=== PATIENT | female | born 2000 | race Caucasian/White ===

== ENCOUNTER 2023-07-11 21:11 | Outpatient (REF) | payer OTHER, SELFPAY ==
[2023-07-18 21:07] LABS: Age Gdln ACOG Testing Note (.); HPV Aptima Positive (Negative); IGP, rfx Aptima HPV ASCU Note (.)
== END 2023-07-11 21:12 | disposition home or self-care (01) ==
LOC: LAB 21:11
PROVIDERS: PCP Student in an Organized Health Care Education/Training Program; Visit Provider Obstetrics & Gynecology
DX: R87.612 Low grade squamous intraepithelial lesion on cytologic smear of cervix (LGSIL) (principal)
CPT/HCPCS: G0145

== ENCOUNTER 2023-08-03 09:33 | Outpatient (OUT) | payer OTHER, SELFPAY ==
--- NOTE | 2023-08-03 09:36 | US_ITS ---
[address] [address] Patient Name: JUAN PAREDES MRN: [id number] date: 2000 Sex: F Assigned Patient Location: US Current Patient Location: US Accession/Order Number: [id number] Exam Date: 08/03/2023 09:36 Report Date: 08/03/2023 15:35 At the request of: SHAHANA ALFORD Procedure: US OB transvaginal EXAMINATION: US OB transvaginal HISTORY: MISSED MENSES COMPARISON: No relevant comparison available. FINDINGS: GESTATIONAL SAC: Present and normal appearing. YOLK SAC: Present and normal appearing. POLE: Present and normal appearing. CARDIAC: Present. UTERUS: Normal size and appearance. OVARIES: Right: Not seen. Left: Normal. CERVIX: 4.6 cm in length and closed. CUL-DE-SAC: Normal. OTHER: None. AGE BY LMP: 9 weeks 1 day AMAIRANI BY LMP: 03/06/2024 AGE BY US CRL: 8 weeks 5 days AMAIRANI BY US CRL: 03/09/2024 US/US OB transvaginal IMPRESSION: 1. Single live intrauterine . Electronically authenticated by: MELITA MARTINEZ Date: 08/03/2023 15:35
== END 2023-08-03 09:34 | disposition home or self-care (01) ==
LOC: US 09:34
PROVIDERS: PCP Student in an Organized Health Care Education/Training Program; Visit Provider Obstetrics & Gynecology
DX: Z34.91 Encounter for supervision of normal pregnancy, unspecified, first trimester (principal); N92.6 Irregular menstruation, unspecified; Z3A.08 8 weeks gestation of pregnancy
CPT/HCPCS: 76817

== ENCOUNTER 2023-08-09 10:50 | Outpatient (OUT) | payer OTHER, SELFPAY ==
[2023-08-09 11:28] LABS: Basophils Percent Auto 0.3 % (0.2-2.0); Eosinophils Absolute Auto 0.2 10^3/uL (0.0-0.7); Eosinophils Percent Auto 1.5 % (0.9-7.0); Hematocrit 41.2 % (36.0-48.0); Hemoglobin 14.4 g/dL (12.0-16.0); Immature Granulocytes Abs Auto 0.04 10^3/uL (0.00-0.03); Immature Granulocytes Pct Auto 0.4 % (0.0-0.5); Lymphocytes Absolute Auto 1.8 10^3/uL (1.2-3.8); Lymphocytes Percent Auto 17.3 % (20.5-60.0); Mean Corpuscular Hemoglobin 30.6 pg (26.7-34.0); Mean Corpuscular Volume 87.5 fL (81.0-99.0); Monocytes Absolute Auto 0.6 10^3/uL (0.3-0.8); Neutrophils Absolute Auto 7.7 10^3/uL (1.4-6.5); Neutrophils Percent Auto 74.5 % (43.0-75.0); Platelet Count 237 10^3/uL (150-450); Red Blood Count 4.71 10^6/uL (4.20-5.40); Red Cell Distribution Width 12.7 % (11.0-15.0); White Blood Count 10.3 10^3/uL (4.0-11.0)
[2023-08-09 11:45] LABS: BOX Test Sent Out Y
[2023-08-09 12:21] LABS: Estimated Average Glucose 100 mg/dL; Glycohemoglobin A1C 5.1 % (4.5-6.2)
[2023-08-09 12:36] LABS: Thyroid Stimulating Hormone 0.025 uIU/mL (0.358-3.740)
[2023-08-10 06:09] LABS: HBsAg Screen Negative (Negative); HCV Ab Non Reactive (Non Reactive); HIV Ab/p24 Ag Screen Non Reactive (Non Reactive); Rubella Antibodies, IgG 1.78 index (Immune >0.99)
[2023-08-10 12:09] LABS: Rapid Plasma Reagin, Quant Non Reactive titer (NonRea<1:1)
== END 2023-08-09 10:51 | disposition home or self-care (01) ==
PROVIDERS: PCP Student in an Organized Health Care Education/Training Program; Visit Provider Obstetrics & Gynecology
DX: Z36.0 Encounter for antenatal screening for chromosomal anomalies (principal); N92.6 Irregular menstruation, unspecified
CPT/HCPCS: 36415; 83036; 84443; 85025; 86592; 86762; 86803; 86850; 86900; 86901; 87086; 87340; 87389

== ENCOUNTER 2023-08-21 08:54 | Emergency (ER) | payer OTHER, SELFPAY ==
[2023-08-21 09:00] VITALS: BP 121/84; PULSE 116; RESP 18; TEMP 36.6; O2SAT 97; BMI 25.7
--- NOTE | 2023-08-21 09:16 | ED.NAVMDI1 ---
HPI - Nausea/Vomiting/Diarrhea General Chief complaint: Nausea/Vomiting/Diarrhea Stated complaint: NAUSEA/VOMITTING 12 WEEKS Time Seen by Provider: 08/21/23 09:08 Source: patient Mode of arrival: walk-in Limitations: no limitations History of Present Illness HPI Narrative: 23-year-old female who is twelve weeks presents for nausea and vomiting which this time started two days ago. She's had issues like this in the past and on previous had to have a Zofran pump. No vaginal bleeding or abdominal pain. No fever. Related Data Previous Rx's Medication Instructions Recorded ondansetron 4 mg disintegrating 4 mg PO Q6H PRN nausea and 08/21/23 tablet vomiting #20 tabs Allergies Allergy/AdvReac Type Severity Reaction Status Date / Time No Known Drug Allergies Allergy Verified 08/21/23 08:59 Review of Systems ROS Narrative A ten point review of systems is negative except as noted above. Exam Narrative Exam Narrative: Nurses note and vital signs reviewed and patient is not hypoxic. General: The patient appears well and in no apparent distress. Patient is resting comfortably on cart. Skin: Warm, dry, no pallor noted. There is no rash noted. Head: Normocephalic, atraumatic Eye: Normal conjunctiva, no drainage Ears, Nose, Mouth, and Throat: oral mucosa is moist. Nares patent. Cardiovascular: Regular Rate and Rhythm Respiratory: Patient is in no distress, no accessory muscle use, lungs are clear to auscultation, no wheezing, rales or rhonchi Back: non-tender GI: no tenderness to palpation, no masses appreciated. No rebound, guarding, or rigidity noted. Musculoskeletal: The patient has no evidence of calf tenderness, no pitting edema, symmetrical pulses noted bilaterally Neurological: A&O, normal speech Psychiatric: Cooperative Constitutional Vital Signs, click to edit/add: Last Vital Signs Temp 97.9 F 08/21/23 09:00 Pulse 68 08/21/23 10:17 Resp 18 08/21/23 10:36 BP 103/69 08/21/23 10:36 Pulse Ox 99 08/21/23 10:17 Course Vital Signs Vital signs: Vital Signs Temperature 97.9 F 08/21/23 09:00 Pulse Rate 116 H 08/21/23 09:00 Respiratory Rate 18 08/21/23 09:00 Blood Pressure 121/84 08/21/23 09:00 Pulse Oximetry 97 08/21/23 09:00 Temperature 97.9 F 08/21/23 09:00 Pulse Rate 68 08/21/23 10:17 Respiratory Rate 18 08/21/23 10:36 Blood Pressure 103/69 08/21/23 10:36 Pulse Oximetry 99 08/21/23 10:17 MDM - Nausea/Vomiting/Diarrhea MDM Narrative Medical decision making narrative: labs are nonspecific. She was given IV fluids and Zofran and feels improved and is tolerating by mouth liquids. She states she feels hungry now. She'll be discharged home with a prescription for Zofran and she'll follow-up with her [employer]. Treatment diagnosis and follow-up were discussed with the patient. Differential Diagnosis Differential diagnosis: Likely food poisoning, gastroenteritis, dehydration and other ( induced vomiting) Lab Data Attestation: I reviewed the patient's lab results. Labs: Lab Results 08/21/23 08/21/23 Range/Units 09:15 10:15 WBC 12.1 H (4.0-11.0) 10^3/uL RBC 4.96 (4.20-5.40) 10^6/uL Hgb 15.8 (12.0-16.0) g/dL Hct 43.6 (36.0-48.0) % MCV 87.9 (81.0-99.0) fL MCH 31.9 (26.7-34.0) pg MCHC 36.2 H (29.9-35.2) g/dL RDW 13.1 (11.0-15.0) % Plt Count 238 (150-450) 10^3/uL MPV 9.9 (9.5-13.5) fL Neut % (Auto) 78.8 H (43.0-75.0) % Lymph % (Auto) 13.9 L (20.5-60.0) % [place] % (Auto) 5.8 (1.7-12.0) % Eos % (Auto) 0.8 L (0.9-7.0) % Baso % (Auto) 0.3 (0.2-2.0) % Neut # (Auto) 9.6 H (1.4-6.5) 10^3/uL Lymph # (Auto) 1.7 (1.2-3.8) 10^3/uL [place]ick # (Auto) 0.7 (0.3-0.8) 10^3/uL Eos # (Auto) 0.1 (0.0-0.7) 10^3/uL Baso # (Auto) 0.0 (0.0-0.1) 10^3/uL Abs Immat Gran (auto) 0.05 H (0.00-0.03) 10^3/uL Imm/Tot Granulo (auto) 0.4 (0.0-0.5) % Sodium 138 (136-145) mmol/L Potassium 4.0 (3.5-5.1) mmol/L Chloride 101 (98-107) mmol/L Carbon Dioxide 23.5 (21.0-32.0) mmol/L Anion Gap 17.5 BUN 10.0 (7.0-18.0) mg/dL Creatinine 0.58 (0.55-1.02) mg/dL Est GFR ( Amer) >60 (>=60) Est GFR (Non-Af Amer) >60 (>=60) BUN/Creatinine Ratio 17.2 Glucose 95 (74-106) mg/dL Calcium 9.0 (8.5-10.1) mg/dL Urine Color Dk yellow (YELLOW) Urine Clarity Slightly cloudy A (CLEAR) Urine pH 6.5 (5.0-9.0) Ur Specific [place] 1.025 (1.005-1.025) Urine Protein Trace (NEG/TRACE) mg/dL Urine Glucose (UA) Negative (NEGATIVE) mg/dL Urine Ketones >=80 A (NEGATIVE) mg/dL Urine Occult Blood Negative (NEGATIVE) Urine Nitrite Negative (NEGATIVE) Urine Bilirubin Small A (NEGATIVE) Urine Urobilinogen 4.0 A (0.2-1.0) EU/dL Ur Leukocyte Esterase Small A (NEGATIVE) Urine RBC None seen (0-2) #/HPF Urine WBC 2-5 A (NONE SEEN) #/HPF Ur Squamous Epith Cells Few A (NONE/RARE) #/LPF Urine Crystals None seen (None Seen) #/HPF Urine Bacteria Trace A (NONE SEEN) #/HPF Urine Casts None seen (NONE SEEN) #/LPF Urine Mucus None seen (NONE SEEN) Discharge Plan Discharge Chief Complaint: Nausea/Vomiting/Diarrhea Clinical Impression: Nausea and vomiting in Patient Disposition: Home, Self-Care Time of Disposition Decision: 10:55 Condition: Good Mode of Transportation: Private Vehicle Prescriptions / Home Meds: New ondansetron 4 mg tablet,disintegrating 4 mg PO Q6H PRN (Reason: nausea and vomiting) Qty: 20 0RF Instructions: Nausea and Vomiting in (ED) Stand Alone Forms: Portal Instructions Referrals: KELSEY BOURGEOIS [Primary Care Provider] - 1 week
[2023-08-21] MEDS: 0.9 % SODIUM CHLORIDE 1,000 ML 1000 ML IV (09:19)
[2023-08-21] MEDS: ONDANSETRON PF 4 MG/2 ML VIAL IV (09:21)
[2023-08-21 09:25] LABS: Basophils Percent Auto 0.3 % (0.2-2.0); Eosinophils Absolute Auto 0.1 10^3/uL (0.0-0.7); Eosinophils Percent Auto 0.8 % (0.9-7.0); Hematocrit 43.6 % (36.0-48.0); Hemoglobin 15.8 g/dL (12.0-16.0); Immature Granulocytes Abs Auto 0.05 10^3/uL (0.00-0.03); Immature Granulocytes Pct Auto 0.4 % (0.0-0.5); Lymphocytes Absolute Auto 1.7 10^3/uL (1.2-3.8); Lymphocytes Percent Auto 13.9 % (20.5-60.0); Mean Corpuscular HGB Conc 36.2 g/dL (29.9-35.2); Mean Corpuscular Hemoglobin 31.9 pg (26.7-34.0); Mean Corpuscular Volume 87.9 fL (81.0-99.0); Mean Platelet Volume 9.9 fL (9.5-13.5); Monocytes Absolute Auto 0.7 10^3/uL (0.3-0.8); Monocytes Percent Auto 5.8 % (1.7-12.0); Neutrophils Absolute Auto 9.6 10^3/uL (1.4-6.5); Neutrophils Percent Auto 78.8 % (43.0-75.0); Platelet Count 238 10^3/uL (150-450); Red Blood Count 4.96 10^6/uL (4.20-5.40); Red Cell Distribution Width 13.1 % (11.0-15.0); White Blood Count 12.1 10^3/uL (4.0-11.0)
[2023-08-21 09:34] LABS: Anion Gap 17.5; BUN Creatinine Ratio 17.2; Carbon Dioxide 23.5 mmol/L (21.0-32.0); Chloride 101 mmol/L (98-107); Estimated GFR (African America >60 (>=60); Estimated GFR (Non-African Ame >60 (>=60); Glucose 95 mg/dL (74-106); Sodium 138 mmol/L (136-145)
[2023-08-21 10:17] VITALS: BP 115/79; PULSE 68; RESP 18; O2SAT 99
[2023-08-21 10:18] LABS: Bilirubin Urine SMALL (NEGATIVE); Blood Urine NEGATIVE (NEGATIVE); Glucose Urine UA NEGATIVE (NEGATIVE); Ketones Urine >=80 mg/dL (NEGATIVE); Leukocyte Esterase Urine SMALL (NEGATIVE); Nitrite Urine NEGATIVE (NEGATIVE); Protein Urine TRACE mg/dL (NEG/TRACE); Specific Gravity Urine 1.025 (1.005-1.025); pH Urine 6.5 (5.0-9.0)
[2023-08-21 10:19] LABS: Clarity Urine SLIGHTLY CLOUDY (CLEAR); Color Urine DK YELLOW (YELLOW)
[2023-08-21 10:31] LABS: Bacteria Urine TRACE #/HPF (NONE SEEN); Crystals Seen? None Seen #/HPF (None Seen); Mucus Urine NONE SEEN (NONE SEEN); RBC Urine NONE SEEN #/HPF (0-2); Squamous Epithelial Cell Urine FEW #/LPF (NONE/RARE)
[2023-08-21 10:32] LABS: Cast Seen? NONE SEEN #/LPF (NONE SEEN)
[2023-08-21 10:36] VITALS: BP 103/69; RESP 18
== END 2023-08-21 11:03 | disposition home or self-care (01) ==
PROVIDERS: Emergency Provider Emergency Medicine; PCP Student in an Organized Health Care Education/Training Program
DX: O21.9 Vomiting of pregnancy, unspecified (principal); Z3A.12 12 weeks gestation of pregnancy
CPT/HCPCS: 36415; 80048; 81001; 85025; 96361; 96374; 99284

== ENCOUNTER 2023-08-31 11:28 | Outpatient (OUT) | payer OTHER, SELFPAY ==
[2023-08-31 12:20] LABS: Thyroid Stimulating Hormone 0.279 uIU/mL (0.358-3.740)
[2023-08-31 13:20] LABS: Free T4 1.08 ng/dL (0.76-1.46)
== END 2023-08-31 11:29 | disposition home or self-care (01) ==
LOC: LAB 11:30
PROVIDERS: PCP Student in an Organized Health Care Education/Training Program; Visit Provider Obstetrics & Gynecology
DX: O99.280 Endocrine, nutritional and metabolic diseases complicating pregnancy, unspecified trimester (principal); E07.9 Disorder of thyroid, unspecified; R79.89 Other specified abnormal findings of blood chemistry
CPT/HCPCS: 36415; 84439; 84443

== ENCOUNTER 2023-10-25 12:33 | Outpatient (OUT) | payer OTHER, SELFPAY ==
--- OUTSIDE RECORDS SUMMARY | 2023-10-25 10:36 | XMS_ITS | CCD ---
Author Name Unknown Address [address] [place] [address] Organization [facility] Care Team Providers Care Driver Retraining Instructor Name Role Phone REQUEST, DR SHERMAN LISTED Primary Care Unavaila ble PRASHANTH ., DR HARKINS Attending Unavailable PRASHANTH ., DR HARKINS Admitting Unavailable KARASIK ., DR COLEMAN Consulting Unavailabl e KARASIK ., DR COLEMAN Admitting Unavailabl e KARASIK ., DR COLEMAN Attending Unavailabl e REQUEST, DR WHITAKER LISTED Primary Care Unavaila ble KARASIK ., DR COLEMAN Admitting Unavailabl e KARASIK ., DR COLEMAN Attending Unavailabl e KARASIK ., DR COLEMAN Consulting Unavailabl e REQUEST, DR WHITAKER LISTED Primary Care Unavaila ble PRASHANTH ., DR HARKINS Consulting Unavailable ZIEBER, DR MELITA Rivas Consulting Unavailable REQUEST, DR WHITAKER LISTED Primary Care Unavaila ble PRASHANTH ., DR HARKINS Admitting Unavailable PRASHANTH ., DR HARKINS Attending Unavailable REQUEST, DR NONE LISTED Primary Care Unavaila ble PRASHANTH ., DR HARKINS Attending Unavailable PRASHANTH ., DR HARKINS Consulting Unavailable PRASHANTH ., DR HARKINS Admitting Unavailable PRASHANTH ., DR HARKINS Consulting Unavailable PRASHANTH ., DR HARKINS Admitting Unavailable REQUEST, NONE LISTED Primary Care Unavaila ble PRASHANTH ., DR HARKINS Attending Unavailable ZIEBER, DR MELITA Rivas Consulting Unavailable REQUEST, NONE LISTED Primary Care Unavaila ble PRASHANTH ., DR HARKINS Attending Unavailable PRASHANTH ., DR HARKINS Consulting Unavailable PRASHANTH ., DR HARKINS Admitting Unavailable PRASHANTH ., DR HARKINS Attending Unavailable PRASHANTH ., DR HARKINS Consulting Unavailable PRASHANTH ., DR HARKINS Admitting Unavailable ZIEBER, DR MELITA Rivas Consulting Unavailable PRASHANTH ., DR HARKINS Attending Unavailable PRASHANTH ., DR HARKINS Consulting Unavailable PRASHANTH ., DR HARKINS Admitting Unavailable REQUEST, DR NONE LISTED Primary Care Unavaila ble PRASHANTH ., DR HARKINS Attending Unavailable PRASHANTH ., DR HARKINS Admitting Unavailable WEST, DR ELIAS Saenz Consulting Unavailable PRASHANTH ., DR HARKINS Consulting Unavailable PRASHANTH ., DR HARKINS Consulting Unavailable REQUEST, DR NONE LISTED Primary Care Unavaila ble PRASHANTH ., DR HARKINS Attending Unavailable PRASHANTH ., DR HARKINS Admitting Unavailable PRASHANTH ., DR HARKINS Consulting Unavailable REQUEST, DR NONE LISTED Primary Care Unavaila ble PRASHANTH ., DR HARKINS Admitting Unavailable PRASHANTH ., DR HARKINS Attending Unavailable ZIEBER, DR MELITA Rivas Consulting Unavailable PRASHANTH ., DR HARKINS Attending Unavailable PRASHANTH ., DR HARKINS Consulting Unavailable REQUEST, DR NONE LISTED Primary Care Unavaila ble PRASHANTH ., DR HARKINS Admitting Unavailable REQUEST, DR NONE LISTED Primary Care Unavaila ble PRASHANTH ., DR HARKINS Consulting Unavailable PRASHANTH ., DR HARKINS Admitting Unavailable PRASHANTH ., DR HARKINS Attending Unavailable KARASIK ., DR COLEMAN Consulting Unavailabl e KARASIK ., DR COLEMAN Admitting Unavailabl e KARASIK ., DR COLEMAN Attending Unavailabl e REQUEST, DR NONE LISTED Primary Care Unavaila ble WEST, DR ELIAS Saenz Consulting Unavailable PRASHANTH ., DR HARKINS Consulting Unavailable PRASHANTH ., DR HARKINS Attending Unavailable PRASHANTH ., DR HARKINS Consulting Unavailable PRASHANTH ., DR HARKINS Admitting Unavailable PRASHANTH ., DR HARKINS Attending Unavailable PRASHANTH ., DR HARKINS Consulting Unavailable PRASHANTH ., DR HARKINS Admitting Unavailable PRASHANTH ., DR HARKINS Attending Unavailable PRASHANTH ., DR HARKINS Consulting Unavailable REQUEST, DR NONE LISTED Primary Care Unavaila ble PRASHANTH ., DR HARKINS Admitting Unavailable DBOUK, ARTIS Consulting Unavailable JESSI, FLORENTINO Consulting Unavailable PRASHANTH ., DR HARKINS Procedure Practitioner Unavail able PETER RODAS Consulting Unavailable REQUEST, DR NONE LISTED Primary Care Unavaila ble KARASIK ., DR COLEMAN Consulting Unavailabl e KARASIK ., DR COLEMAN Admitting Unavailabl e KARASIK ., DR COLEMAN Attending Unavailabl e PRASHANTH ., DR HARKINS Consulting Unavailable REQUEST, DR NONE LISTED Primary Care Unavaila ble KARASIK ., DR COLEMAN Admitting Unavailabl e KARASIK ., DR COLEMAN Attending Unavailabl e KARASIK ., DR COLEMAN Consulting Unavailabl e PRASHANTH ., DR HARKINS Consulting Unavailable PRASHANTH ., DR HARKINS Attending Unavailable REQUEST, DR NONE LISTED Primary Care Unavaila ble PRASHANTH ., DR HARKINS Admitting Unavailable PRASHANTH ., DR HARKINS Attending Unavailable REQUEST, DR NONE LISTED Primary Care Unavaila ble PRASHANTH ., DR HARKINS Admitting Unavailable PRASHANTH ., DR HARKINS Attending Unavailable PRASHANTH ., DR HARKINS Consulting Unavailable PRASHANTH ., DR HARKINS Admitting Unavailable REQUEST, DR NONE LISTED Primary Care Unavaila ble ZIEBER, DR MELITA Rivas Consulting Unavailable PRASHANTH ., DR HARKINS Admitting Unavailable PRASHANTH ., DR HARKINS Attending Unavailable BEAUMONT, DR ELIAS Saenz Consulting Unavailable REQUEST, DR NONE LISTED Primary Care Unavaila ble PRASHANTH ., DR HARKINS Consulting Unavailable REQUEST, DR NONE LISTED Primary Care Unavaila ble PRASHANTH ., DR HARKINS Admitting Unavailable PRASHANTH ., DR HARKINS Attending Unavailable BEAUMONT, DR ELIAS Saenz Consulting Unavailable PRASHANTH ., DR HARKINS Consulting Unavailable REQUEST, DR NONE LISTED Primary Care Unavaila ble PRASHANTH ., DR HARKINS Attending Unavailable PRASHANTH ., DR HARKINS Consulting Unavailable PRASHANTH ., DR HARKINS Admitting Unavailable Madhavi Bustamante Primary Care Physician Madhavi Bustamante Referring Unavailable Madhavi Bustamante Attending Unavailable Madhavi Bustamante Admitting Unavailable Yash Medina Attending Unavailable Yash Medina Attending Unavailable DO Angus Benedict Attending Provider [phone] MD Madhavi Bustamante Primary Care Provider Unavaila Angus Lee Attending Unavailable Madhavi Bustamante Primary Care Unavailable Angus Benedict Admitting Unavailable Angus Benedict Attending Unavailable Madhavi Bustamante Primary Care Unavailable Angus Benedict Admitting Unavailable Unavailable Primary Care Provider UnavailJOHN Mauricio Attending Unavailable SLOANE BRITT Attending Unavailable JOHN WILSON Attending Unavailable JOHN WILSON Referring Unavailable VERONA DECKER Attending Unavailable JOHN WILSON Referring Unavailable DECKER, VERONA Referring Unavailable Medications Current Medications Medication Drug Class(es) Dates Sig (Normalized) Sig (Original) ARIPiprazole 5 mg oral tablet (1 source) Atypical Antipsychotic Start: 03-05-2023 take 5 mg by mouth once daily in the morning Aripiprazole Active 5 MG PO Every morning March 05, 2023 12:00am citalopram 20 mg oral tablet (3 sources) Serotonin Reuptake Inhibitor take 1 tablet by mouth in the morning citalopram (CeleXA) 20 mg tablet Take 1 tablet (20 mg total) by mouth in the morning. 0 Active clonazePAM 0.5 mg oral tablet (3 sources) Benzodiazepine Start: 06-17-2020 take 1 tablet by mouth once daily at bedtime Klonopin 0.5 mg Tab 0.5 mg = 1 tab(s), Oral, Once a day (at bedtime), f41.1, # 30 tab(s), Refills(s) 2, Pharmacy: [facility]/pharmacy #[id number], 168, cm, 05/19/20 1:25:00 EDT, Height/Length Dosing, 90, kg, 05/19/20 1:25:00 EDT, Weight Dosing Start Date: 06/17/20 Status: Ordered dicyclomine hydrochloride 10 mg oral capsule (1 source) Anticholinergic Start: 12-07-2022 End: 12-14-2022 take 1 capsule by mouth four times daily as needed for pain Bentyl 10 mg Cap 10 mg = 1 cap(s), Oral, QID, PRN Pain, X 7 day(s), # 28 cap(s), Refills(s) 0, Pharmacy: [facility]/pharmacy #[id number], 167.6, cm, 12/07/22 21:32:00 EDT, Height/Length Dosing, 79, kg, 12/07/22 21:32:00 EDT, Weight Dosing Start Date: 12/07/22 Stop Date: 12/14/22 Status: Ordered hydrOXYzine hydrochloride 25 mg oral tablet (4 sources) Antihistamine Start: 03-05-2023 take 25 mg by mouth twice daily Hydroxyzine Hcl Active 25 MG PO Twice daily March 05, 2023 12:00am take 1 tablet by maribell three times daily as needed hydrOXYzine (ATARAX) 25 mg tablet Take 1 tablet (25 mg total) by mouth 3 (three) times a day as needed for itching. 0 Active lamoTRIgine 200 mg oral tablet (3 sources) Mood Stabilizer, Anti-epileptic Agent Start: 06-17-2020 take 1 tablet by mouth once daily Lamictal 200 mg Tab 200 mg = 1 tab(s), Oral, Daily, # 30 tab(s), Refills(s) 5, Pharmacy: [facility]/pharmacy #[id number], 168, cm, 05/19/20 1:25:00 EDT, Height/Length Dosing, 90, kg, 05/19/20 1:25:00 EDT, Weight Dosing Start Date: 06/17/20 Status: Ordered levonorgestrel 0.907019 mg/hr intrauterine system (4 sources) Progestin, Progestin-containing Intrauterine Device Start: 03-05-2023 Levonorgestrel (Mirena) 21 mcg/24 hours (8 yrs) 52 mg Intrauterine Device Active 1 DEVICE INTRAUTERI Once March 05, 2023 12:00am as a single dose Start: 08-11-2019 Kyleena 19.5 m g intrauterine device 19.5 mg = 1 EA, IntraUteral, Once, Refills(s) 0 Start Date: 08/11/19 Status: Ordered metFORMIN hydrochloride 500 mg oral tablet (3 sources) Biguanide Start: 06-17-2020 take 1 tablet by mouth twice daily metformin 500 mg Tab 500 mg = 1 tab(s), Oral, BID, # 60 tab(s), Refills(s) 5, Pharmacy: [facility]/pharmacy #[id number], 168, cm, 05/19/20 1:25:00 EDT, Height/Length Dosing, 90, kg, 05/19/20 1:25:00 EDT, Weight Dosing Start Date: 06/17/20 Status: Ordered naproxen 500 mg delayed release oral tablet (6 sources) Nonsteroidal Anti-inflammatory Drug Start: 05-07-2021 take 1 tablet by mouth twice daily as needed for pain naproxen 500 mg oral enteric coated tablet 500 mg = 1 tab(s), Oral, BID, PRN Pain, # 20 tab(s), Refills(s) 0, Pharmacy: [facility]/pharmacy #[id number], 168, cm, 05/07/21 16:26:00 EDT, Height/Length Dosing, 80, kg, 05/07/21 16:26:00 EDT, Weight Dosing Start Date: 05/07/21 Status: Ordered Start: 05-19-2020 take 1 tablet by maribell th twice daily Naprosyn 500 mg Tab 500 mg = 1 tab(s), Oral, BID, # 20 tab(s), Refills(s) 0, [id number], cm, 05/19/20 1:25:00 EDT, Height/Length Dosing, 90, kg, 05/19/20 1:25:00 EDT, Weight Dosing Start Date: 05/19/20 Status: Ordered ondansetron 4 mg oral tablet (7 sources) Serotonin-3 Receptor Antagonist Start: 12-07-2022 End: 12-10-2022 take 1 tablet by mouth every six hours as needed for nausea Zofran 4 mg Tab 4 mg = 1 tab(s), Oral, q6hr, PRN Nausea, X 3 day(s), # 12 tab(s), Refills(s) 0, [id number] 167.6, cm, 12/07/22 21:32:00 EDT, Height/Length Dosing, 79, kg, 12/07/22 21:32:00 EDT, Weight Dosing Start Date: 12/07/22 Stop Date: 12/10/22 Status: Ordered Start: 12-27-2019 take 1 tablet by maribell th four times daily as needed for nausea Zofran ODT 4 mg Tab 4 mg = 1 tab(s), Oral, QID, PRN Nausea/Vomiting, # 7 tab(s), Refills(s) 0 Start Date: 12/27/19 Status: Ordered take 1 tablet by maribell th every eight hours as needed for nausea and vomiting ondansetron ODT (ZOFRAN ODT) 4 mg disintegrating tablet Dissolve 1 tablet (4 mg total) on tongue every 8 (eight) hours as needed for nausea or vomiting. 0 Active propranolol hydrochloride 40 mg oral tablet (3 sources) beta-Adrenergic Tony Start: 03-05-2023 take 40 mg by mouth twice daily Propranolol Active 40 MG PO Twice daily March 05, 2023 12:00am End: 02-15-2024 take 1 tablet by mouth three times daily propranoloL (INDERAL) 40 mg tablet Take 1 tablet (40 mg total) by mouth 3 (three) times a day. 0 10/18/2023 Discontinued () QUEtiapine 25 mg oral tablet (4 sources) Atypical Antipsychotic Start: 03-05-2023 take 25 mg by mouth once daily at bedtime Quetiapine Active 25 MG PO Daily at bedtime March 05, 2023 12:00am risperiDONE 4 mg oral tablet (3 sources) Atypical Antipsychotic Start: 06-17-2020 take 1 tablet by mouth once daily risperidone 4 mg oral tablet 4 mg = 1 tab(s), Oral, Daily, # 30 tab(s), Refills(s) 5, Pharmacy: [facility]/pharmacy #[id number], 168, cm, 05/19/20 1:25:00 EDT, Height/Length Dosing, 90, kg, 05/19/20 1:25:00 EDT, Weight Dosing Start Date: 06/17/20 Status: Ordered Problems Active Problems Problem Classification Problem Date Documented Date Episodic/Chronic Anxiety disorders (4 sources) Anxiety disorder, unspecified; Translations: [Generalized anxiety disorder] Onset: 06-19-2022 11-24-2019 Chronic Biliary tract disease (2 sources) Cholelithiasis without obstruction; Translations: [Calculus of gallbladder without cholecystitis without obstruction] Onset: 12-07-2022 Episodic Immunizations and screening for infectious disease (6 sources) Encounter for screening for human papillomavirus (HPV); Translations: [Encounter for screening for infections with a predominantly sexual mode of transmission] Onset: 11-30-2021 Episodic Menstrual disorders (4 sources) Irregular menstruation, unspecified; Translations: [IRREGULAR MENSTRUATION UNSPECIFIED] Onset: 11-25-2021 Chronic Mood disorders (6 sources) Bipolar disorder, current episode depressed, moderate; Translations: [Mild mixed bipolar I disorder] Onset: 06-19-2022 09-10-2019 Chronic Mood disorders (1 source) Mood disorders; Translations: [Depression, unspecified] Onset: 10-18-2023 Nausea and vomiting (1 source) Nausea; Translations: [Nausea] Onset: 12-07-2022 Episodic Other complications of (1 source) Depressive disorder in mother complicating ; Translations: [Other mental disorders complicating , unspecified trimester] 10-18-2023 Episodic Other complications of (1 source) Other mental disorders complicating , unspecified trimester; Translations: [Other mental disorders complicating , unspecified trimester] Onset: 10-18-2023 Episodic Other complications of (1 source) Supervision of high risk , unspecified, unspecified trimester; Translations: [Supervision of high risk , unspecified, unspecified trimester] Onset: 10-18-2023 Episodic Other screening for suspected conditions (not mental disorders or infectious disease) (20 sources) Encounter for screening for malignant neoplasm of cervix; Translations: [Encounter for screening for Streptococcus B] Onset: 10-23-2018 Resolved: 10-28-2018 Episodic Comment on above: MRSA rt forearm absc ess 10/23/18 Previous (1 source) Maternal care for unspecified type scar from previous delivery; Translations: [Maternal care for unspecified type scar from previous delivery] Onset: 10-18-2023 Episodic Residual codes; unclassified (1 source) Gestation period, 20 weeks; Translations: [20 weeks gestation of ] 10-18-2023 Episodic Residual codes; unclassified (2 sources) ultrasound scan abnormal; Translations: [Pyelectasis of fetus on ultrasound] 10-18-2023 Episodic Residual codes; unclassified (1 source) 20 weeks gestation of ; Translations: [20 weeks gestation of ] Onset: 10-18-2023 Episodic Sprains and strains (1 source) Sprain of ligament of finger; Translations: [Unspecified sprain of unspecified finger, initial encounter] Onset: 01-11-2023 Episodic Superficial injury; contusion (1 source) Contusion of hand; Translations: [Contusion of unspecified hand, initial encounter] Onset: 01-11-2023 Episodic Unclassified (1 source) CONTACT W/AND (SUSP) EXPOS COVID-19; Translations: [CONTACT W/AND (SUSP) EXPOS COVID-19] Onset: 06-19-2022 Unclassified (3 sources) Drug therapy finding 04-21-2019 Unclassified (1 source) Maternal care for other (suspected) abnormality and damage, genitourinary anomalies, not applicable or unspecified; Translations: [Maternal care for other (suspected) abnormality and damage, genitourinary anomalies, not applicable or unspecified] Onset: 10-18-2023 Unclassified (1 source) Thyroid Issues Onset: 10-18-2023 Past or Other Problems Problem Classification Problem Date Documented Date Episodic/Chronic Contraceptive and procreative management (3 sources) Contraception Resolved: 05-09-2019 07-24-2019 Episodic Other complications of ; puerperium affecting management of mother (1 source) Maternal exhaustion complicating labor and delivery; Translations: [MATERNAL EXHAUSTION COMP LABR AND DEL] Onset: 06-19-2022 Episodic Other complications of ; puerperium affecting management of mother (1 source) Other mental disorders complicating childbirth; Translations: [OTH MENTAL D/O COMP CHILDBIRTH] Onset: 06-19-2022 Episodic Other complications of ; puerperium affecting management of mother (1 source) Failed medical induction of labor; Translations: [FAILED MEDICAL INDUCTION OF LABOR] Onset: 06-19-2022 Episodic Other complications of ; puerperium affecting management of mother (1 source) Maternal distress during labor and delivery; Translations: [MATERNAL DISTRESS DUR LABOR AND DEL] Onset: 06-19-2022 Episodic Other complications of (4 sources) Maternal care for excessive growth, third trimester, not applicable or unspecified; Translations: [MAT CARE EXCSS FTL GRTH 3RD TRI UNS] Onset: 06-02-2022 Episodic Other complications of (5 sources) Other specified related conditions, third trimester; Translations: [OTH SPEC PREG RELATED COND 3RD TRI] Onset: 03-22-2022 Episodic Other complications of (1 source) Decreased movements, third trimester, not applicable or unspecified; Translations: [DECR MOVEMENTS 3RD TRI NA/UNS] Onset: 03-27-2022 Episodic Other complications of (4 sources) Unspecified infection of urinary tract in , unspecified trimester; Translations: [UNS INF URINARY TRACT PREG UNS TRI] Onset: 02-20-2022 Episodic Other female genital disorders (1 source) Other specified noninflammatory disorders of vagina; Translations: [OTH SPEC NONINFLAMMATORY D/O VAGINA] Onset: 12-23-2021 Episodic Other and delivery including normal (10 sources) Encounter for routine follow-up; Translations: [Single live ] Onset: 11-04-2021 Episodic Residual codes; unclassified (1 source) 39 weeks gestation of ; Translations: [39 WEEKS GESTATION OF ] Onset: 06-19-2022 Episodic Residual codes; unclassified (1 source) Type A blood, Rh negative; Translations: [TYPE A BLOOD RH NEGATIVE] Onset: 06-19-2022 Episodic Residual codes; unclassified (1 source) 38 weeks gestation of ; Translations: [38 WEEKS GESTATION OF ] Onset: 06-02-2022 Episodic Residual codes; unclassified (1 source) 37 weeks gestation of ; Translations: [37 WEEKS GESTATION OF ] Onset: 05-29-2022 Episodic Residual codes; unclassified (1 source) 36 weeks gestation of ; Translations: [36 WEEKS GESTATION OF ] Onset: 05-21-2022 Episodic Residual codes; unclassified (1 source) 35 weeks gestation of ; Translations: [35 WEEKS GESTATION OF ] Onset: 05-14-2022 Episodic Residual codes; unclassified (1 source) 34 weeks gestation of ; Translations: [34 WEEKS GESTATION OF ] Onset: 05-03-2022 Episodic Residual codes; unclassified (1 source) 33 weeks gestation of ; Translations: [33 WEEKS GESTATION OF ] Onset: 04-27-2022 Episodic Residual codes; unclassified (1 source) 32 weeks gestation of ; Translations: [32 WEEKS GESTATION OF ] Onset: 04-20-2022 Episodic Residual codes; unclassified (1 source) 31 weeks gestation of ; Translations: [31 WEEKS GESTATION OF ] Onset: 04-12-2022 Episodic Residual codes; unclassified (1 source) Unspecified blood type, Rh negative; Translations: [UNSPECIFIED BLOOD TYPE RH NEGATIVE] Onset: 03-27-2022 Episodic Residual codes; unclassified (1 source) 28 weeks gestation of ; Translations: [28 WEEKS GESTATION OF ] Onset: 03-27-2022 Episodic Unclassified (3 sources) fractured right leg 04-18-2010 Results Test Name Value Interpretation Reference Range Facility THYROID PROFILEon 10-18-2023 Free T4 [Mass/Vol] 0.70 ng/dL Normal 0.61-1.60 [facility] Comment on above: Performed By: #### T HYR #### [facility] ([id number]) [address] [place] [address] TSH 0.72 uIU/mL Normal 0.49-4.67 [facility] Comment on above: Performed By: #### T HYR #### [facility] ([id number]) [address], [address] [place] [address] Thyroid profile includes TSH FT4on 10-18-2023 Free T4 [Mass/Vol] 0.70 ng/dL 0.61 - 1. 60 ng/dL [facility] TSH Qn 0.72 m[IU]/L [facility] Free Cell DNAon 2022 [facility] Alkaline Phosphataseon 03-19 ALP [Catalytic activity/Vol] 71 U/L Normal 34-104 [facility] Comment on above: Performed By: #### B ILTD, LIPASE, SLOANE, ALP #### [facility] [address] Amylaseon 03-19-2023 Amylase [Catalytic activity/Vol] 71 U/L Normal 29-103 [facility] Comment on above: Performed By: #### B ILTD, LIPASE, SLOANE, ALP #### [place] [address] [place] Bilirubin, Total and Directo n 03-19-2023 Bilirubin [Mass/Vol] 1.0 mg/dL Normal 0.3-1.0 [facility] Comment on above: Performed By: #### B ILTD, LIPASE, SLOANE, ALP #### [facility] [address] [id number] [place] Bilirubin,Indirect 0.9 mg/dL Normal [facility] Comment on above: Performed By: #### B ILTD, LIPASE, SLOANE, ALP #### [facility] [address] Bilirubin.indirect [Mass/Vol] 0.10 mg/dL Normal 0.03-0.18 [facility] Comment on above: Performed By: #### B ILTD, LIPASE, SLOANE, ALP #### [facility] [address] [place], [place] [id number] [facility] HCG,Urineon 03-19-2023 Beta HCG ( test) Ql (U) Negative Normal [facility] Comment on above: Result Comment: PERF ORMED BY: [address] [place] [address] PATHOLOGIST DYNAMIC BALANCER BARBARA FERNANDEZ M.D. Performed By: #### U HCG #### [facility] [address] [place] [address] Juan 03-19-2023 L Specimen: [id number] Received: 03/19/23 Status: JULIEN Weldon Num: [id number] Spec Type: Surgical Subm Dr: Angus Benedict DO Tissues: A Gallbladder (GALLBLADDER) Procedures: Saranya STANFORD/Ariel L3 Age/ Patient Sex Location Account Attending Physician Darline Falcon / [place] [id number] Angus Benedict DO SPEC NUM: [id number] RECD: 03/19/23 STATUS: TAEHeavenly WELDON NUM: [id number] CLAY: 03/19/[address]: Angus Benedict DO ENTERED: 03/19/[address] [facility] [address]: SPEC TYPE: Surgical DEPT: S ORDERED: HE, Gross/Micro L3 ORDERED: HE, Gross/Micro L3 Pathological Diagnosis Gallbladder, cholecystectomy: - Chronic cholecystitis and cholelithiasis - One benign lymph node (0) Clinical Information Gallstones Gross Description Received in formalin labeled with the patient's name, date of and gallbladder is a 10.5 x 3.2 x 3.0 cm intact gallbladder with a purple-pink serosa. The average wall thickness is 0.3 cm. The lumen contains yellow-green bile and multiple (greater than 20) yellow-black choleliths measuring up to 1.5 cm. The mucosa is vergara-red, granular, focally denuded. The 0.2 cm in diameter cystic duct margin is inked and submitted entirely. A 1.7 x 1.3 cm periductal lymph node is identified with a rubbery, yellow-vergara cut surface. [employer] sections are submitted in one cassette labeled A1. Specimen: [id number] Received: 03/19/23 Status: TAEHeavenly Weldon Num: [id number] Spec Type: Surgical Subm Dr: Angus Benedict DO Tissues: A Gallbladder (GALLBLADDER) Procedures: Justus STANFORD Patient: Falcon,Darline L [id number] (Continued) Specimen: [id number] Received: 03/19/23 (Continued) Signed (signature on file) Haile Dc MD 03/21/23 1203 Specimen: [id number] Received: 03/19/23 Status: JULIEN Weldon Num: [id number] Spec Type: Surgical Subm Dr: Angus Benedict DO Tissues: A Gallbladder (GALLBLADDER) Procedures: Justus STANFORD Patient: Darline Falcon Matthew [id number] (Continued) Specimen: [id number] Received: 03/19/23 (Continued) Microscopic Description One H E slide reviewed. The microscopic examination confirms the diagnosis. CPT Codes 71533 Specimen: [id number] Received: 03/19/23 Status: JULIEN Weldon Num: [id number] Spec Type: Surgical Subm Dr: Angus Benedict DO Tissues: A Gallbladder (GALLBLADDER) Procedures: HIEN, Gross/Micro L3 Patient: EzekielDarline Castro [id number] (Continued) Signed (signature on file) Haile Dc MD 03/21/23 1203 Normal [facility] Lipaseon 03-19-2023 Lipase [Catalytic activity/Vol] 32.0 U/L Normal 11.0-82.0 [facility] Comment on above: Result Comment: PERF ORMED BY: [place] [address] PATHOLOGIST DYNAMIC BALANCER BARBARA FERNANDEZ M.D. Performed By: #### B ILTD, LIPASE, SLOANE, ALP #### [facility] [address] Discharge Instructionson Discharge Instructions [id number] #1.00CD:127 [facility] Consent for Treatmenton 01-01 Consent for Treatment [id number] #1.00CD:127 [facility] ED Clinical Summaryon 2022 ED Clinical Summary [address] [address] ED Clinical Summary Person Information Name: DARLINE FALCON [place] Age: 22 Years : 2000 Sex: Female Language: Yakut PCP: Madhavi Bustamante MD Marital Status: Single Phone: [phone] Visit Id: Visit Reason: Wrist pain-swelling; Hand pain-swelling; LT WRIST INJURY Speciality: Acuity: 4 Enc Type: Emergency Med Service: Emergency Arrival: 01/11/2023 15:30:18 Discharge: 01/11/2023 17:01:11 LOS: 000 01:31 Checkin: 01/11/2023 15:30:18 Checkout: 01/11/2023 17:01:11 Dispo Type: Home (Routine DC) EVENTS: Event Name Event Status Request Date/Time Start Date/Time Complete Date/Time Arrive Complete 01/11/2023 15:30:18 01/11/2023 15:30:18 01/11/2023 15:30:18 Document Home Meds Request 01/11/2023 15:30:18 Triage Complete 01/11/2023 15:30:18 01/11/2023 15:38:30 01/11/2023 15:38:30 Isolation Screening Request 01/11/2023 15:38:31 Bed Assign Complete 01/11/2023 15:38:52 01/11/2023 15:38:52 01/11/2023 15:38:52 Dr Exam Complete 01/11/2023 15:38:52 01/11/2023 15:44:28 01/11/2023 15:44:28 RN Exam Complete 01/11/2023 15:38:52 01/11/2023 17:03:55 01/11/2023 17:03:55 Registration Complete 01/11/2023 15:44:28 01/11/2023 15:52:28 01/11/2023 15:52:28 Dr Exam Complete 01/11/2023 15:45:06 01/11/2023 15:45:06 01/11/2023 15:45:06 Reg Complete Request 01/11/2023 15:52:28 Reg Bed Request Complete 01/11/2023 15:52:28 01/11/2023 15:52:28 01/11/2023 15:52:28 X-Ray Complete 01/11/2023 16:06:29 01/11/2023 16:06:49 01/11/2023 16:13:46 Wet Read Request 01/11/2023 16:13:46 Patient Care Complete 01/11/2023 16:47:20 01/11/2023 17:04:45 Discharge Complete 01/11/2023 16:47:22 01/11/2023 17:05:20 01/11/2023 17:05:20 Transfer Complete 01/11/2023 17:05:20 01/11/2023 17:05:20 01/11/2023 17:05:20 ADDRESS: [place] [id number] PHYS DOC NOTES: MEDICAL INFORMATION: Prescriptions Given: Medications to Continue with No Changes Other Medications clonazepam (Klonopin 0.5 mg Tab) 1 Tablets By Mouth once a day (at bedtime). f41.1. Refills: 2. lamotrigine (Lamictal 200 mg Tab) 1 Tablets By Mouth every day. Refills: 5. levonorgestrel (Kyleena 19.5 mg intrauterine device) 1 Each Intrauteral Once. metformin (metformin 500 mg Tab) 1 Tablets By Mouth 2 times a day. Refills: 5. naproxen (Naprosyn 500 mg Tab) 1 Tablets By Mouth 2 times a day. Refills: 0. naproxen (naproxen 500 mg oral enteric coated tablet) 1 Tablets By Mouth 2 times a day as needed Pain. Refills: 0. ondansetron (Zofran ODT 4 mg Tab) 1 Tablets By Mouth 4 times a day as needed Nausea/Vomiting. Refills: 0. risperidone (risperidone 4 mg oral tablet) 1 Tablets By Mouth every day. Refills: 5. PATIENT EDUCATION INFORMATION: Instructions: Finger Sprain, Adult; Contusion Follow up: With: Address: When: Madhav[place] [address] [place] [address] [facility] ([facility] In 3 days 01/14/2023 DIAGNOSIS: Finger sprain; Hand contusion [facility] ED Note-Physicianon 01-12-20 ED Note-Physician Basic Information Time Seen: Derek Salcido PA-C 01/11/2023 15:44 Chief Complaint Pt tripped walking up the steps and landed on her L hand/wrist. Pt c/o medial wrist and hand pain. History of Present Illness 22-year-old female comes to the ED for evaluation of a left hand injury. The patient states she tripped going up the stairs, falling and landing on her left hand. She complains of pain primarily to the left fifth/pinky finger that radiates into the ulnar aspect of the right hand. No weakness. No paresthesias. No other complaints or concerns. No prior treatments. Review of Systems A 10 point review of systems is negative except as noted above. Medical and Surgical History: Reviewed and noted Social history: Lives at home Tobacco: Denies Physical Exam Vitals & Measurements T: 36.6 ?C(Oral) HR: 79(Peripheral) RR: 18 BP: 117/81 SpO2: 99% HT: 167.6 cm WT: 77.8 kg BMI: 27.7 Nurses notes and vital signs reviewed and patient is not hypoxic. General: The patient appears well, resting comfortably. Skin: Warm, dry. Head: Atraumatic. Neck: No JVD. Eye: Normal conjunctiva. Ears, Nose, Mouth, and Throat: Moist mucous membranes. Cardiovascular: Strong distal pulses. Chest wall: Respiratory: Respirations are nonlabored. Back: Normal range of motion. Musculoskeletal: Tenderness and swelling over the ulnar aspect of the right hand along the fifth metacarpal bone extending into the fifth/pinky finger. There is poor range of motion of the finger due to pain. There is some mild soft tissue swelling. No gross deformity or bony instability. Strong distal pulses and brisk cap refill. No tenderness over the wrist Gastrointestinal: Urological: Neurological: Awake and alert. No focal deficits. Follows commands. Psychiatric: Cooperative. Medical Decision Making Imaging shows no fracture dislocation. Patient is treated symptomatically with finger splint by nursing. She is neurovascular intact. Discharged home PCP follow-up. Patient was encouraged to return to the ED if symptoms worsen or change. Assessment/Plan Finger sprain (S63.619A: Unspecified sprain of unspecified finger, initial encounter) Hand contusion (S60.229A: Contusion of unspecified hand, initial encounter) Orders: Finger Splint Application XR Hand 3+ Views Left Disposition Plan Patient Discharge Condition Disposition: Discharged home Condition: Improved and stable Counseled: Patient and/or family were counseled to workup, results, treatment plan and follow-up recommendations Discharge Prescription List Prescriptions No active prescription medications Follow-up With When Contact Information Madhavi Dianna In 3 days 01/14/[address] [place] [address]- Business (1) Additional Instructions: Patient Education Finger Sprain, Adult Contusion Attestation Patient seen and evaluated by the physician sales assistants and salespersons. Attending physician was present in the emergency department and supervised care. This visit was performed by both the physician and an APC. I performed all aspects of the MDM as documented. This report was transcribed using voice recognition software. Every effort was made to ensure accuracy, however, inadvertently computerized senior mobile solutions architect mistakes may be present. Appropriate healthcare PPE was used in evaluating this patient. The patient was placed in a mask. The healthcare provider was wearing mask, gloves, and utilizing proper hand hygiene. All equipment was properly cleansed. Problem List/Past Medical History Ongoing Anxiety disorder, Unspecified Bipolar 1 disorder, mixed, mild High risk medication use Historical Encounter for contraceptive management fractured right leg MRSA (methicillin resistant staph aureus) culture positive Procedure/Surgical History ACL and Meniscus Repair Right Leg (2013). Medications Inpatient No active inpatient medications Home Klonopin 0.5 mg Tab, 0.5 mg= 1 tab(s), Oral, Once a day (at bedtime), 2 refills Kyleena 19.5 mg intrauterine device, 19.5 mg= 1 EA, IntraUteral, Once Lamictal 200 mg Tab, 200 mg= 1 tab(s), Oral, Daily, 5 refills metformin 500 mg Tab, 500 mg= 1 tab(s), Oral, BID, 5 refills Naprosyn 500 mg Tab, 500 mg= 1 tab(s), Oral, BID naproxen 500 mg oral enteric coated tablet, 500 mg= 1 tab(s), Oral, BID, PRN risperidone 4 mg oral tablet, 4 mg= 1 tab(s), Oral, Daily, 5 refills Zofran ODT 4 mg Tab, 4 mg= 1 tab(s), Oral, QID, PRN, Not taking Allergies No Known Allergies Social History Alcohol - Low Risk, 01/21/2020 Substance Abuse - Denies Substance Abuse, 01/21/2020 Tobacco - Denies Tobacco Use, 01/21/2020 Family History Bipolar: Aunt. Depression: Father and Grandparent. Lab Results No qualifying data available. Diagnostic Results XR Hand 3+ Views Left 01/11/23 16:33:17 IMPRESSION: NEGATIVE LEFT HAND. CLINICAL HISTORY: Pain, Traumatic COMPARISONS: NONE AVAILABLE FINDINGS: AP, lateral and oblique views (more content not included)... [facility] Comment on above: Result Comment: Elec tronically Signed By: Derek Salcido PA-C\.br\Date and Time Signed: 01/11/23 17:02 EDT\.br\Electronically Co-Signed By: Yash Medina DO\.br\Date and Time Co-Signed: 01/11/23 19:27 EDT ED Patient Education Noteon 01-11-2023 ED Patient Education Note Orthopedics Finger Sprain, Adult A finger sprain is a tear or stretch in a ligament in a finger. Ligaments are tissues that connect bones to each other. What are the causes? Finger sprains happen when something makes the bones in the hand move in an abnormal way. They are often caused by a fall or an accident. What increases the risk? This condition is more likely to develop in people who: ? Participate in sports in which it is easy to fall, such as skiing. ? Play sports that involve catching an object, such as basketball. ? Have poor strength and flexibility. What are the signs or symptoms? Symptoms of this condition include: ? Pain or tenderness in the finger. ? Swelling in the finger. ? A bluish appearance to the finger. ? Bruising. ? Difficulty bending and flexing the finger. How is this diagnosed? This condition is diagnosed with an exam of your finger. Your health care provider may take an X-ray to see if any bones are broken or dislocated. How is this treated? Treatment for this condition depends on how severe the sprain is. It may involve: ? Preventing the finger from moving for a period of time. Your finger may be wrapped in a bandage (dressing) or splint, or your finger may be taped to the fingers beside it (talisha taping). ? Medicines for pain. ? Exercises to strengthen the finger. These may be recommended when the finger has healed. ? Surgery to reconnect the ligament to a bone. This may be done if the ligament was completely torn. Follow these instructions at home: If you have a removable splint: ? Wear the splint as told by your health care provider. Remove it only as told by your health care provider. ? Check the skin around the splint every day. Tell your health care provider about any concerns. ? Loosen the splint if your fingers tingle, become numb, or turn cold and blue. ? Keep the splint clean. ? If the splint is not waterproof: ? Do not let it get wet. ? Cover it with a watertight covering when you take a bath or shower. Managing pain, stiffness, and swelling ? If directed, put ice on the injured area. To do this: ? If you have a removable splint, remove it as told by your health care provider. ? Put ice in a plastic bag. ? Place a towel between your skin and the bag. ? Leave the ice on for 20 minutes, 2?3 times a day. ? Remove the ice if your skin turns bright red. This is very important. If you cannot feel pain, heat, or cold, you have a greater risk of damage to the area. ? Move your fingers often to reduce stiffness and swelling. ? Raise (elevate) the injured area above the level of your heart while you are sitting or lying down. Medicines ? Take eago-dsb-tlawlrc and prescription medicines only as told by your health care provider. ? Ask your health care provider if the medicine prescribed to you requires you to avoid driving or using machinery. General instructions ? Keep any dressings dry until your health care provider says they can be removed. ? If your fingers are talisha taped, replace your talisha taping as told by your health care provider. ? Do exercises as told by your health care provider or physical therapist. ? Do not wear rings on your injured finger. ? Keep all follow-up visits. This is important. Contact a health care provider if: ? Your pain is not controlled with medicine. ? Your bruising or swelling gets worse. ? Your splint is damaged. ? You develop a fever. Get help right away if: ? Your finger is numb or blue. ? Your finger feels colder to the touch than normal. Summary ? A finger sprain is a tear or stretch in a ligament in a finger. Ligaments are tissues that connect bones to each other. ? Finger sprains happen when something makes the bones in the hand move in an abnormal way. They are often caused by a fall or accident. ? This condition is diagnosed with an exam of your finger. Your health care provider may do an X-ray to see if any bones are broken or dislocated. ? Treatment for this condition depends on how severe the sprain is. Treatment may involve talisha taping or wearing a splint. Surgery to reconnect the ligament to a bone may be needed if the ligament was torn all the way. This information is not intended to replace advice given to you by your health care provider. Make sure you discuss any questions you have with your health care provider. Document Revised: 07/13/2021 Document Reviewed: 07/13/2021 Elsevier Patient Education ? 2022 [employer] Contusion A contusion is a deep bruise. Contusions are the result of a blunt injury to tissues and muscle fibers under the skin. The injury causes bleeding under the skin. The skin overlying the contusion may turn blue, purple, or yellow. Minor injuries will give you a painless contusion, but more severe injuries cause contusions that may stay painful and swollen for a few weeks. Follow these instructions at home: Pay attention to any abernathy (more content not included)... [facility] ED Patient Summaryon 023 ED Patient Summary [address] [address] Patient Discharge Instructions Person Information Name: DARLINE FALCON Age: 22 Years Arrival Date: 01/11/2023 15:30:18 Discharge Diagnosis: Finger sprain; Hand contusion Primary Care Physician: Madhavi Bustamante MD Provider Information Primary Provider: Yash Medina DO Advanced Executive Assistant:Derek Salcido PA-C The exam and treatment you received in the Emergency Department were for an urgent problem and are not intended as complete care. It is important that you follow up with a doctor, nurse practitioner, or physician?s sales assistants and salespersons for ongoing care. If your symptoms become worse or you do not improve as expected and you are unable to reach your usual health care provider, you should return to the Emergency Department. We are available 24 hours a day. FALCONDARLINE MARIE has been given the following list of patient education materials, prescriptions and follow-up instructions: Follow-up Instructions: With: Address: When: Madhavi Bustamante [place] [address] Business (1) In 3 days 01/14/2023 In the event that this physician does not participate in your insurance network, please consult with your insurance company to find a nearby participating provider. Patient Education Materials: Finger Sprain, Adult; Contusion A MESSAGE TO ALL PATIENTS REGARDING OPIOIDS PRESCRIPTION OPIOIDS: WHAT YOU NEED TO KNOW Prescription opioids can be used to help relieve affzejgd-za-bzhbfu pain and are often prescribed following a surgery or injury, or for certain health conditions. These medications can be an important part of the treatment but also come with serious risks. It is important to work with your healthcare provider to make sure you are getting the safest, most effective care. WHAT ARE THE RISKS AND SIDE EFFECTS OF OPIOID USE? Prescription opioids carry serious risks of addiction and overdose, especially with prolonged use. An opioid overdose, often marked by slowed breathing, can cause sudden . The use of prescription opioids can have a number of side effects as well, even when taken as directed: ? Tolerance?meaning you might need to take more of the medication for the same pain relief ? Physical dependence?meaning you have symptoms of withdrawal when a medication is stopped ? Increased sensitivity to pain ? Constipation ? Nausea, vomiting, and dry mouth ? Sleepiness and dizziness ? Confusion ? Depression ? Low levels of testosterone that can result in lower sex drive, energy, and strength ? Itching and sweating RISKS ARE GREATER WITH: ? History of drug misuse, substance use disorder, or overdose ? Mental health conditions (such as depression or anxiety) ? Sleep apnea ? Older age (65 years and older) ? Avoid alcohol while taking prescription opioids. Also, unless specifically advised by your health care provider, medications to avoid include: ? Benzodiazepines (such as Xanax or Valium) ? Muscle relaxants (such as Soma or Flexeril) ? Hypnotics (such as Ambien or Lunesta) ? Other prescription opioids KNOW YOUR OPTIONS Talk to your health care provider about ways to manage your pain that don?t involve prescription opioids. Some of these options may actually work better and have fewer risks and side effects. Options may include: ? Pain relievers such as acetaminophen, ibuprofen, and naproxen ? Some medication that are also used for depression or seizures ? Physical therapy and exercise ? Cognitive behavioral therapy, a psychological, goal-directed approach, in which patients learn how to modify physical, behavioral, and emotional triggers of pain and stress. IF YOU ARE PRESCRIBED OPIOIDS FOR PAIN: ? Never take opioids in greater amounts or more often than prescribed. ? Follow up with your primary health care provider. o Work together to create a plan on how to manage your pain. o Talk about ways to help manage your pain that don?t involve prescription opioids. o Talk about any and all concerns and side effects. ? Help prevent misuse and abuse o Never sell or share prescription opioids. o Never use another person?s prescription opioids. ? Store prescription opioids in a secure place and out of reach of others (this may include visitors, children, friends, and family). ? Safely dispose of unused prescription opioids: Find your community drug take-back program or your pharmacy mail-back program, or flush them down the toilet, following guidance from the Food and Drug Administration (www.fda.gov/Drugs/R esourcesForYou). ? Visit www.cdc.gov/drugover dose to learn about the risks of opioids abuse and overdose. ? If you believe you may be struggling with addiction, tell your health customer care consultant and ask for guidance or call [facility]?S National Helpline at 4-084-161-LPNJ. (more content not included)... [facility] XR Hand 3+ Views Lefton 01-01 XR Hand 3+ Views Left Exam Date/Time: 01/11/2023 16:13 EDT Reason for Exam: Pain, Traumatic Report IMPRESSION: NEGATIVE LEFT HAND. CLINICAL HISTORY: Pain, Traumatic COMPARISONS: NONE AVAILABLE FINDINGS: AP, lateral and oblique views of the left hand demonstrate no evidence of fracture, dislocation, bone or joint abnormality. Ordering Provider: Derek Salcido FINAL REPORT Dictated: 01/11/2023 4:30 pm Deon Jerez MD, V. Signed (Electronic Signature): 01/11/2023 4:30 pm Signed by: Deon Jerez MD, V. Transcribed by: LITA Technologist: NICOLA Technical Comments Radiation Dose: Ka,r in mGy = na DAP = na [facility] Coding Summary.on 12-12-2022 Coding Summary. [id number] Ww+PGhlYWQ+MH7ZEEZjC 84zaBFmgV8lC5DHEQxVH ywgQVBQTElOSyIgbmFtZ E8quSIzLGLf IC8+FO4oJWOeUptilTMn y9R0hBH4O92lkn1uQMff rKE5VUZmIcHpuieqc3kh jJe2XAgtAzgiBhWk TJJnvA74ETO1hX22Lm26 cDMcjGBri9qhjMc6QvJf UAUyEIF6nBvrUVovh7Wt VJCrP09lxMUtd5B8 IGNvbGxhcHNlOyBlbXB0 rF7aQPonkjith5woehbr Qib1tm50bWWwe0X4wXI8 F8CdkuX2OIYbqILw BvecwHADdC2ntwneq9lv ivglZyBqFBCqNBb5LMo7 JXUsrUwuMiUdVX05DWR7 QJUbfvSjI5HdCNDs tTxoOgH3e6O4Oy1SD3GM RbieB0BHVODGIYkccSY+ FI78el34U7EfAeglMvg3 SNBbXNE0bJP4pC5p HGYfHJmyc9J6sVV0G1Iw juExvv2iz4gwJMEyZMwk Q39uoMKzo9L2QJTunCJ4 CPHbrFgkQlAkaA69 Oyc+ZPEzwRdye2AnZiew w1fyp4tyiZr1AisbNHJx wcKpnOltMVE8n5VvVd3q GPFecZM8iBJ2qS1m IqFvIfH0CBgvU610DqRz xJHiMkftX25rY9PoyXC+ BUKlYdi9CLWwxGmzSD6c V6EjUIDtlrpybPUp fUczIM3sGTXixxarUJAu xZ9rHCMaS2x6IeNsKqU2 YUyoR5PoWIXhypagAg08 xV2kMgOyByK2IOcg E5DuicN5QWHawXUlOLwn XVR2N42qc7U7YVJsCWDc ZSE7nGS5pC4kvTrwgjus bGVmdDsgdmVydGlj YNajHNosI235ASNzfFgo PkNvZGluZyBEYXRlOiAg MDQvMTEvMjAyMzwvdGQ+ FHLiNHR0uJolPICz sYMkBCezOm5svXvstBbb TV9kZVObbjfiZTHcjI2q BOItyHJrdNksYM7qEEGf bwfyh995ZwUeOKU7 FQWwkTRrH3NhfK4fKdSb TWZlPZEaA3CifAPnIArm M493YNkqPhF8XNJtlxXo D0DrQVRskMlrFdD0 z4L7Rm9Os4RzyfczZ2Vy tQObYtXlUoneKCg8P4Ga PjwvdHI+FO63YKYrYP92 ELa2BYX2lKobDNlc MOTfZ5BzvY7fSoZuPNTr ZGRkOyc+PHRhYmxlIHdp ZHRoPScxMDAlJyBzdHls MT8lXy5wBQOdGIFe bZzheQEqTbWaf7wjCNLo MZcePG2cxPbcP8YznMU5 EMEsw4y1Fh57Z10uR3Gr dXA+VGQoiWV3hXJ9 jF4tIgHyVmC0ZQnrA150 WzShpZDzVudac5txp3vu bVe6MuM8AEYhhxJdbBiw GPU7e7QkAu90Q99l IHdpZHRoPSIxNSUiIHZh cPcizf0zdK1wDr6+PGNv jRG2tED2iG7dZvPhRfY0 PDuvJ547XoHbpSRa Xxims9toa3imtPe1QhPs OEHxcdPzlMgyKDJ2q1Dq Vh60G0QqgIffa2MgCxl0 js27cYQqk2S5eFZ7 F5HgPPVwmawcpMFetIjh PH3vWYWfvtygNCLjgI2g PZRgB3w5WeVnDnM5VPmc C9LiauT1DNMvdIYl ATUmyFFYnP0uwsqmt1zn jlmlNmTsRVRjJTj6DMd8 XLPsaYghGzPfZJQ8SzM1 WDD0bOPdqZ0qeZoq oyybdP4pNsy+YNF2rMDw tAPYON9oTryjsTU+PHRk TAT1vGgsZHyyTOYauQ2l WPIzB7r8UoTzVsH6 IBirL4RzozA0BQVxdUSm UUThxZGDxB6sdiyjl6sn ubysMlGtUHZpLTx3BCv4 LWFsaWduOiBsZWZ0 JqA6WNV1fDHhkT4cvZwk exztlW2rTqb+QmlydGgg WWV7YRv5U0OsJnt7HOXs pTljQZ7chNDaCAxq Zb6noMgnyTrbWF5kWNBq mvgxl299CdCkl6vaTEPu yGVyMYoqRBH6Y61nr4L0 TJVbMPCtGVS1dEQ5 mE3lcGlxhkeqnDAfsPwf bdCmuSgeIVryPKneX244 WVOlzGtgGcDeKHb9F1Oq Lxj4ZYGfoEzwNQ9z fZQeWMiqPj0xhRualYyb BW8qGLAxhelsi298XtVy j6qnUVYowTWfKQxcEYQ3 K74yn1Y8WESsFDSc OUS5iMM7cS2hlQoxvhda bGVmdDsgdmVydGljYWwt YIzqJ958KVQarDvmOzRw jIi1U0LtYlo1XEZi oQlxIV4oyZHwUDxjAv9f pOzjpZjkII0mOESemivf f963QhOha8iuLDJqpRLg GOumNMX1K83km1C3 DGIbFBSqSQP6tID9sJ6c bGlnbjogbGVmdDsgdmVy pOlhOSzcYHhgE195YFBa cDsnPlBhdGllbnQg KWaoHIm1C1RgOcdfxJR+ OF69OPZoQX34cBRgfEYk x4onaUd6DbSdJFTkMLV7 gSbgDRltp3IkQDXd U87olGNhm4J3IBVcbNkx xTDvVaWbwIR7aP2nRJmr klsok2vnlvxqHnyih2zf ru99hP76S28rJXbd ZHRoPSIzMCUiIHZhbGln xp7bjM1vOl3+PGNvbCB3 aCZ4eJ4sYFUcFjQ4BYwc Y792XrGosQVlSwpn g2fso9rfrIh2HbK5VYKe gfYbdIbmGQD4t9MbNk76 I70oFOvdBVSmCKCaWJPj IQHtbNnotj0vgC8b Ii8+QCUftBC1tSC1uS5q WaSwVgH2GQoeL529BvSm zRVoVvtiN99jZ9LgwCT+ QRYlMpj9JVIhdZkf FZ0zdOQkQXmqQd1nQBL5 FqEcJbYgMJrdJ4NpYPHj mpuwqpooxLH5QVPrECYt kQ75Is5aeQcqZJAr xPIHzQ7xgbgmc0izdgmm OvQhBFPsSGr4JVo7LXFl bEgbJiUsCTT9JcP5GNK5 dIKjfR6hcOuuxhoo wL3zL8QaVHSaazkaXh62 kP1mDpLcFiW2XUurVgr+ WklNTUVSTUFOLCBJVlkg TDwvdGQ+PHRkIHN0 uGwkGPcvFAQouG4gQNZi G3s1PvBgMqF8UNszI7Yo ZRJgymzhVr47lD9aGbQg AhZ8ZZwxS7NcfgE7 EARkyLSxDEwzCYL9S06c a6T3KJNcSNFoJEJ8xUJ2 jP0stBwfipnlyGMdkIda dmVydGljYWwtYWxp H675DTCmdZndPcB6LbTx KwIbFZL0R0HcMlf5LYPr yHrqQJ7apCNwSYogJm7v wBnblVykMT6uSICr zibyALPxuL3pQYCqcXVk bHxvDJ0eRSJvtyjsj468 QqNdDUH0CTQolSZcG0So qY6sNiQwXRCoXMAy U0EzuJMfPKkiQ583SRof VrD2ZJHuewMmZ5KaPLBa bWzmOqI1d1M5Xy0fNjUY ZWFyczwvdGQ+PHRk DFJ9wRybMPkiMKUegA3j XEMdG5z7UeXpKuR8ECjf K1OeOTXxyohrPz98rG9e ZtMvTpP5IJsaT0Fk xfO5HVAgmDZhSJutQII9 V77ak4Z6SDWsBGBaOEF7 wTG7dP0juOrbowdeqPIv dDsgdmVydGljYWwt QLzjI164HLOggEklRlCf bWFsZTwvdGQ+PHRkIHN0 qLtyOFamNAWxgO7jPMWk U2i2NdEqNkE9YYau G6BhUVKhcvwmLm71dS7j HmCfXrJ6XWntG8TxasC4 JFFetFKqGBtwSFX9G60h q0Y3JCWfLYNxFAL1 gOH2oB0muPpdpywnnWAs dDsgdmVydGljYWwtYWxp D117PPPslOqvThRqRANw DO7ybAzfyLA+PC90 ta02G2ZgMjiqQbf5PGWt ZHY3cGN1bA8dPPCnLSus t1W6vEL2A9MewlSoza5v v8veZRLnHWyiI60e dZSfn6J8ASOsfIE1FCZl aYqePmQctG56Fmd+PGNv wUrbj7VvNaptr9rfr4id mIh4KpZcSJCqsoRw jBstPCY4i5GaDg49X51g IHdpZHRoPSIzMCUiIHZh iPnhdw4phM1jZz4+PGNv fJD4iCC8hF4pOsSj VzK5PXxeO142HmOfmGWz Nvtny7tso9mbaMr0XaNu RTPacjShdMypSLP1s3Au Ss80L5ZxjHlwp0Dv Scj3qq27dMAli2M1kOI3 F5PuWWFegtufqJGoyIeo CF1zGTNxvvfhTBWzpQ7e NXDdY2w6FwLeMpM1 NRbyC9TbhnG3OPWvrWRe LOXfgLAEcM1zfwrwf0pr wqpgWwZmVFMcIGf8CEs1 LWFsaWduOiBsZWZ0 CoR2SKO3iJWfoW7aqPhd lhqhxK5aMws+MSn7h7ci nSTxHE8ulLZ8XY44ZL91 dNMuu6Y5aRO0L2Sj DVOhxfsjwqkicZX3JBBs JNZmvX37Xx7uzOhqTl8c ZJLoEKH7WLKgzMFdI4Xk fW9yEkEzMUVeQLRn U0UafIUsRHwsQ326VAck QpB0IITxslTsM3GuCUFv qLnwLcF5u2B3Wi7DIG40 OI38FG67xZQtc6N3 oXN2S0VqJLKzvjrgowcg nQG5XGBtZHBpwR36Rc8x oJvpTs3vMILyYKK7MEYs qFRuW6DdxE8xVbMx RLVbDZGiN0IiqQObXKbl B821DJnpJzJ3RERbhnRu W2JtOYNmdLzgHjD6w2S4 Pe1XSp15UA16JN28 uJDpl7U3fQO0C0ZqOVCs dfrvnlyndXC9DRYiPQPs fA71Yu2ygIlcLc1nOLSu ZLH3RXJejTLuC4In eH3rKdMnVLBoYMVkN0Lb nECyVQwcS831DNxeDeR1 PSIyqtYqM0NnGGDwbSsd PjW1v8W0Ix2ZMEnn uuv9T5DyXbmllTS+PC90 [id number] aTf1ZzFiAOYpLEH4aYct NOzkq2XmDKLvK77w aYXkg8E5 (more content not included)... Normal [facility] C Urineon 12-09-2022 Bacteria identified Cx Nom (U) Microbiology PROCEDURE: Urine Culture [R1] SOURCE: U CleanCatch BODY SITE: COLLECTED DATE/TIME: 12/07/2022 21:55 EDT RECEIVED DATE/TIME: 12/07/2022 23:03 EDT START DATE/TIME: 12/07/2022 23:03 EDT FREE TEXT SOURCE: Lupis Miller PA-C, PA-C, Lupis Gusman FINAL REPORTS Final Report [] Verified Date/Time: 12/09/2022 07:12 EDT 3,000 cfu/ml Mixed skin contaminants Performing Locations R1: This test was performed at: [facility], [address] [place] [address], [address] , , [facility] Comment on above: Performed By: #### 2 [id number], [id number], [id number] ####[facility] [address] [place] [address] BMPon 12-08-2022 Creatinine [Mass/Vol] 0.7 mg/dL Normal 0.5-1.3 [facility] Comment on above: Performed By: #### 2 671359, 4068183, 7577428, 11299806, 0849128, 6286668 ####[facility] [address] [place] [address] Urea nitrogen [Mass/Vol] 12 mg/dL Normal 5-21 [facility] Comment on above: Performed By: #### 2 660046, 8258371, 4162887, 16118224, 9002120, 9370009 ####[facility] [address] [place] [address] Urea nitrogen/Creatinine [Mass ratio] 17 No Units Normal 10-20 [facility] Comment on above: Performed By: #### 2 330871, 8655914, 7473351, 43356226, 4613067, 6125606 ####[facility] [address] [place] [address] Anion gap [Moles/Vol] 9 mmol/L Normal 6-16 [facility] Comment on above: Performed By: #### 2 473142, 2997295, 5190806, 07832974, 1104967, 3578526 ####[facility] [address] [place] [address] Calcium [Mass/Vol] 8.9 mg/dL Normal 8.9-11.1 [facility] Comment on above: Performed By: #### 2 203584, 3999747, 5808652, 73643412, 9377339, 7085841 ####[facility] [address] [place] [address] Chloride [Moles/Vol] 104 mmol/L Normal 101-111 [facility] Comment on above: Performed By: #### 2 219803, 6716069, 4297465, 59834154, 2079353, 2125313 ####[facility] [address] [place] [place] [address] CO2 [Moles/Vol] 26 mmol/L Normal 21-[address] [facility] Comment on above: Performed By: #### 2 964855, 6131956, 7175310, 20231682, 0041570, 7445321 ####[facility] [address] [place] [address] Glucose [Mass/Vol] 103 mg/dL Normal 55-199 [facility] Comment on above: Result Comment: If t his glucose result represents a fasting glucose, interpretation should refer to the following reference range: 55-99 mg/dL Performed By: #### 2 471000, 2590184, 2435700, 05883051, 8302090, 0118888 ####[facility] [address] [place] [address] Potassium [Moles/Vol] 3.3 mmol/L Low 3.5-5.3 [facility] Comment on above: Performed By: #### 2 170770, 4435780, 0680577, 92339541, 1999904, 4053970 ####[place] [address] [place] [address] Sodium [Moles/Vol] 136 mmol/L Normal 135-145 [facility] Comment on above: Performed By: #### 2 948500, 5426717, 7569366, 13674781, 1655770, 0858730 ####[address] [place] [address] Coding Summary.on 12-08-2022 Coding Summary. CD:[id number] Ww+PGhlYWQ+ET7NLJDnJ 62aeDNcjR6nJ9XNHDeDR ywgQVBQTElOSyIgbmFtZ N6wxUUuKDYp IC8+PH7pSDWaOsbcoXTu a7K3mUE1N39qet9kEGxl mJU4SKGfCkYlsivzd7kc kHu4SAdrCebzNwEe CKOobX39BEN2tZ91Oy79 cSRztPTor3vvdXa2MlLa SLHaZVB5iUhuGHjvd0Jk WVAsK70jnDTug4Y4 IGNvbGxhcHNlOyBlbXB0 mT8xEDksecgtj4rogonx Ums5xe20sRUej0B0gQU2 Q8UsziQ0TQQgfSQu RrxjwJLMpQ5hgsfpk5te hcrdTrWcIRFaABe1QBe2 NZWgtRrgNnJbAX54XRB5 LENizkKrA2DqEICd pGubJgH6l5D7Mo7SW8YE PkelO7ENQVWVLZmwxUM+ KW35id08G1UgLoupZhe0 MJRdGCL8yGE3jF0e WQVgNFogi6N2cMB5A0Kr zgOqti4rh4zlHTRqPYyi S95njVLrd0B1TYQybVH3 WPQsmTpeJyGptG23 Oyc+DFYsuIixd7NzIquo z1esl7qnaLh3WlmwRPBi tuZfoIfmSCR2k8AvWx9e IKFzkDI1bBC5dW5m EpMwDaM0ABvcK224FmLw fELgMxcpE86nW4VgcCC+ WTBtPwg3YNAmqTcmIL9v U6BfSJIcygabiWRw zLllMY9tWUXymgovEWQz dZ5iFCOdE8g0XvSgCqH3 JAhdG5JsWSRhhhnlGg05 hF2hReHvTmX6CRdu Y4WhzxQ3YXXveOZeJQfl UYJ8W20tx0C8CQMpMQQa ZWY6hAF2zQ7xbJjuyrnq bGVmdDsgdmVydGlj SQumXZcoS516AHIodRkh PkNvZGluZyBEYXRlOiAg MDQvMDcvMjAyMzwvdGQ+ XVDlHQJ7eKhkHAYt hQPvAJgyKh8wuXguiLqv OI6jPQTigzksLVIihM1m LZFvpRXssRcbBM8oWQTq kyazk413AgWtNYZ7 RFVwrHJgU6VkdV7zLmGp MBRzLCPwW9VflDPaLSpe W458MGprUeX0BEHiviHq C7SnIEBawZklFuT3 w0M2Sz7Ho6BmzuekR8Kt tPCfSlZcFusrGBp5O5Hq PjwvdHI+NE77TBGpWI63 PVp2UDN2vJhjILbj ARIuU5RayG1pVzWhIPPx ZGRkOyc+PHRhYmxlIHdp ZHRoPScxMDAlJyBzdHls VD6bRs7gPMDzVBYe dCspnHVoSwXyr6tpIXXe AYwyMB8vmRbzN3HuyAP9 YYSmn9j4Ju04M84vR2Lv dXA+JBFzgFZ5wYY5 bZ5gGjHmRwU2GGcoW432 ExHzwDHjQzxdi9ibe2mw jWe5SlS4QENpxkDtmGjn YXE7f7YgQz09O05h IHdpZHRoPSIxNSUiIHZh zWdbrp6tzS8bLb9+PGNv sIQ5lDN8bA5ySoRsHjI5 EIzvC927BuMmtHIl Usmrt1fnk3kjcHo0ZvUj XSPsmiUbuRbfTEA1y6Kw Ct80T6XuvVdvg3TfRgj9 oc89jYQgf4Q5sIK3 K9MaZZUsplghjNTxqJdc KJ5vUUQwodysMXMhpZ1o RGLuL0p8ZzIiWkT4GFpq R3JoemF5IIQbnJPd SGYcnNPGbD7eufted3cf zgirWyAhVQTrIHb8PSy1 OBUfnAubWlElUON3HrD3 GYD6rVNvqT4ihCkg ebobbX8tYzm+TYS6eUTm kVJZNF0lBgrntEV+PHRk TXF5cMbnXKuaQJAxrO0j ILFsB5c3EzDjUzT6 DZzzS0NdhlE2LFHaxFQe ENJtwROLhF3cxseoy3wm nxqbCqXlGKOkBKv5PUh0 LWFsaWduOiBsZWZ0 AaE2CFD2zMHlrS6lmYmd qlfqpX0uRce+QmlydGgg GVC2REx3K1CbPdh5YMGm nXafVB6pkUYpBIjx Zr5beZrjwShlLQ3nWWIu zbrun690HhKuu6gcEILi gKHiNEzcQZX1L41dj9Q3 KPDmCJYsSQT2oFA6 qF6hvUwmqcareYIelMen oyYwkFejYWkjCBccC033 OOQmtUgkUmZkVZx0W7Iy Rra5EXIfdQklTP2q kUIrKAmtNh8rfYsipZpx OW9mAGMehvdyv496AvKn y1pfYWTnaNWjVPnlFAS8 W02vt6W5PDFmFPIu XVA4hED3wZ1ixSmvgqsx bGVmdDsgdmVydGljYWwt UVvrH187OCFnnCdqKvKt uRp5L9DqQkf0JXJf kQnqCW6tbQJeZKepTf4n wCbzpGeqPU1iCAYteolg u623HyNya5ytIGCysPBk ZLifYBZ8F62te9M4 NLMxFRJmOCE1eEL4wK2u bGlnbjogbGVmdDsgdmVy pMovRWujPZgnZ349ZSFm cDsnPlBhdGllbnQg QIrmQHm3I1DoQabdcPJ+ CI81FHSzEQ37gYFrlLXg d0rruTs5EcNwCSAlIBD2 vYtyOQqsm8DzJXWp V59krRIyv1M3AFFovGyq nCHjQeZxcRS9dE2wBOab cnevo2wkpwqxAohoz2pq vz62oQ23W98vRTio ZHRoPSIzMCUiIHZhbGln wq4wdY1kOk8+PGNvbCB3 uBX0hH4vVOCbHzD3LFrx W485GlQxeNHgEiog h8ypz8marDs7VcT8ESQt egJddQemKAH9r6QmXs65 S21uHLimPYRdYKCrOPXj NLFbdJotjt0tjF7u Ii8+IBFvgTT4gIQ4nS2v UcCrKsM5GXfiB126OyWq nUWqRdgwE49gH1HgePJ+ UELzKjx8IHDwxAvp BR9ttXKkKUkjCu4sHGW4 CyFkTkVkFAelZ4DbRVYz dkshtbpitHY3QJZzWYJf zK20Je7dcEujCLPl yYMGsT4ufewzh4wpjuzj LvQiZIBwYEy4EMi0JVQj rLeoXxFeMAK4OzL6LSI3 wNHgxW4ypLosbffp wF0tL4VuRXSehjpqZt20 qE4zNoUyVnP9INblScc+ WklNTUVSTUFOLCBJVlkg TDwvdGQ+PHRkIHN0 hDmcZFitFOLjzW9zTGAa A6h1YbBpIrS3OVrlT5Xn IQXimnrdEn24dV3kQfLg UtI3DZbbW3NkccC8 MBFaaNJtAJwbRQI9P66f m9E7KEFvYZYoMQJ4bDK2 gD6lxIkhynfknJGwxHmg dmVydGljYWwtYWxp N653CPHooLugPbE3QhNh UnBfVOF4H1XbBvl4DUQe aAhiES7pyZZeFWqoOv5w vJgnwFapZB3rIBOu rnpsKZOomQ5zIERuoUVb rIosHT5tAGIlbayix868 NfZgQIZ8XSCphIKsG6Tt pK5jOiDxQSUoRLGs T2BzmHKtXHraM351JCva KsN8IPRnkjAhC8GvDCIw bIfnCwD6r0E6Ca8nXqVR ZWFyczwvdGQ+PHRk VVR4bAsvCZrwTTDdtR7g WPThA6c8HvKkApD8DYuk T9WzZKZdveoqQl98mB8k GvUdFbL9VMfjG5Cm zvW2HWZepLBqKVneXGZ2 X41bi6P7ECAuLSRbKYD3 kJN2iY7wcVucyqbwfINq dDsgdmVydGljYWwt EUtpH445BZZtxFrwXxAp bWFsZTwvdGQ+PHRkIHN0 iFugWDfzQOQfeX3rPOGd Z7g4TjUuIaF5HGwi P6VlSOFkphqtWg10uG3b RbYhNbA5MErjZ7AzbwS6 EENjzQRiTYbjWVX8A69s b4Q4MBCuEWKdMBQ3 oYS0pP0dvLhksvbzsGBq dDsgdmVydGljYWwtYWxp S469FEOtnByzTl37aCCd zJipdwK6B7VaBurw dHI+CV27DCDoHD24pNZg sTXic9eeoDh3CcPvRDSg UVT3yVykJIxas6HjQIRe Z81djELtt5B3NLMf uOhoyTZlLtUcsAP9dG6m MYkzewqeo4qajozsFsts i0ukns40vP61O33bGCts ZHRoPSIzMCUiIHZh xTsmnb7ltW6dOy0+PGNv xDA1dZD0iD2yCvMtOqD8 OIddD005MwThjHXiGvnv b7jtj2ejcUl4SkPe TWRxysRsrOmnEWV5g2Bq Cm96Q23pRKydRTNfWQGt LFUkBAQhhAbpvp0sbD2b Ii8+UH3ph2wych41 zO17jMW+OIDoDWD7rVrr PUhtMQRcjZ9lZCphRxI0 MHPqXzAhoH84jQFtDZpo Xq7zlMlxcOboLM9y EISzccxmg863PkLme3ry AZMlgXCiAEkiGSR7T08p y1I2MOTsDZYgBZN8qKB6 nU4wuUzigqhbyGPq dDsgdmVydGljYWwtYWxp O829XUExgIrpBqAalXPu Y2mxljMRXJ0cCorwlND+ NHEhOYI4mWvmAIup ZXNuvJ5tCHDyD2e7KnQa SdI2VPplM1GcbjX4ZHOw fCCrISRucXHGcO5ujlcl d2zvftwgBnZrACTn SZh2YMb9ISBbyGhnNdNm PZR9MaZ5EEL4jQLsuP8f iSddefpnzX5eYwu+RklO OjwvdGQ+PHRkIHN0 zYliXXjgLTRqaD3jGGEb D2l4YhDaEnU0VJfwV3Lo ufT1MRLiyDIgCRFrlDYP mS7engnej0ntxmat TyAtKVAcZZa8BSw2HKZm rOwvLwMuPRL6SfE4JDC0 qTXdlE2pzKagdelqiH5p Oyc+TVJOOjwvdGQ+ RAVuKAD4bTgdZVpxIINy xC4fQHAaF9m8HeIfAaC7 KPjlB3NtlhO3YMWnkCIb CCTqzVOQlJ0prpvh q3orlythOsFaHVQnXQk4 MJu0PBNkyQycKtInHKZ4 FhF2XHQ0yYThpA7zlIop tasiwG3hJug+UGF5 BED5OR16DU64L5OwNrrh dGFibGU+PHRhYmxlIHdp ZHRoPScxMDAlJyBzdHls HZ2kSn6xUJMdXGJk bGxhcHNl (more content not included)... Normal [facility] Discharge Instructionson Discharge Instructions [id number]# 1.00CD:127 Normal [facility] ED Clinical Summaryon 2022 ED Clinical Summary [place] [id number] ED Clinical Summary Person Information Name: DARLINE FALCON [facility] Age: 22 Years : 2000 Sex: Female Language: Yakut PCP: Madhavi Bustamante MD Marital Status: Single Phone: [phone] Visit Id: Visit Reason: Nausea; Abdominal pain; ABD PAIN Speciality: Acuity: 3 Enc Type: Emergency Med Service: Emergency Arrival: 12/07/2022 21:25:41 Discharge: 12/07/2022 23:48:50 LOS: 000 02:23 Checkin: 12/07/2022 21:25:41 Checkout: 12/07/2022 23:48:50 Dispo Type: Home (Routine DC) EVENTS: Event Name Event Status Request Date/Time Start Date/Time Complete Date/Time Arrive Complete 12/07/2022 21:25:41 12/07/2022 21:25:41 12/07/2022 21:25:41 Document Home Meds Request 12/07/2022 21:25:41 Triage Complete 12/07/2022 21:25:41 12/07/2022 21:32:45 12/07/2022 21:32:45 Registration Complete 12/07/2022 21:28:34 12/07/2022 21:28:34 12/07/2022 21:28:34 Reg Complete Request 12/07/2022 21:28:34 Reg Bed Request Complete 12/07/2022 21:28:34 12/07/2022 21:28:34 12/07/2022 21:28:34 Bed Assign Complete 12/07/2022 21:29:02 12/07/2022 21:29:02 12/07/2022 21:29:02 Dr Exam Complete 12/07/2022 21:29:02 12/07/2022 21:34:47 12/07/2022 21:34:47 RN Exam Complete 12/07/2022 21:29:02 12/07/2022 21:36:17 12/07/2022 21:36:17 Isolation Screening Request 12/07/2022 21:32:45 Registration Request 12/07/2022 21:34:47 Dr Exam Complete 12/07/2022 21:37:09 12/07/2022 21:37:09 12/07/2022 21:37:09 Pending Labs Complete 12/07/2022 21:38:25 12/07/2022 22:17:44 Lab Complete 12/07/2022 21:38:25 12/07/2022 22:17:44 Pending Labs Complete 12/07/2022 21:38:50 12/07/2022 22:21:30 Lab Complete 12/07/2022 21:38:50 12/07/2022 22:21:30 Urine Collect Complete 12/07/2022 21:38:50 12/07/2022 22:21:30 Pending Labs Complete 12/07/2022 21:52:10 12/07/2022 21:52:10 12/07/2022 22:17:46 Lab Complete 12/07/2022 21:52:10 12/07/2022 21:52:10 12/07/2022 22:17:46 Pending Labs Complete 12/07/2022 21:57:10 12/07/2022 21:57:10 12/07/2022 21:57:16 Lab Complete 12/07/2022 21:57:10 12/07/2022 21:57:10 12/07/2022 21:57:16 Pending Labs Inlab 12/07/2022 22:07:28 12/07/2022 22:07:28 Lab Inlab 12/07/2022 22:07:28 12/07/2022 22:07:28 Meds Admin Complete 12/07/2022 22:21:36 12/07/2022 22:58:34 Pending Labs Complete 12/07/2022 23:00:12 12/07/2022 23:00:12 12/07/2022 23:00:13 Pending Labs Complete 12/07/2022 23:00:21 12/07/2022 23:00:21 12/07/2022 23:00:22 Meds Admin Complete 12/07/2022 23:04:56 12/07/2022 23:14:01 Discharge Complete 12/07/2022 23:18:44 12/07/2022 23:48:57 12/07/2022 23:48:57 Transfer Complete 12/07/2022 23:48:57 12/07/2022 23:48:57 12/07/2022 23:48:57 ADDRESS: [address] [place] [id number] [facility] DOC NOTES: MEDICAL INFORMATION: Prescriptions Given: New Medications [facility]/pharmacy #[id number], [address] [place] [phone], [phone] dicyclomine (Bentyl 10 mg Cap) 1 Capsules By Mouth 4 times a day as needed Pain for 7 Days. Refills: 0. Medications to Continue Taking That Have Changed [facility]/pharmacy #[id number], [address] [place] [id number], [phone] START: ondansetron (Zofran 4 mg Tab) 1 Tablets By Mouth every 6 hours as needed Nausea for 3 Days. Refills: 0. Other Medications START: ondansetron (Zofran ODT 4 mg Tab) 1 Tablets By Mouth 4 times a day as needed Nausea/Vomiting. Refills: 0. Medications to Continue with No Changes Other Medications clonazepam (Klonopin 0.5 mg Tab) 1 Tablets By Mouth once a day (at bedtime). f41.1. Refills: 2. lamotrigine (Lamictal 200 mg Tab) 1 Tablets By Mouth every day. Refills: 5. levonorgestrel (Kyleena 19.5 mg intrauterine device) 1 Each Intrauteral Once. metformin (metformin 500 mg Tab) 1 Tablets By Mouth 2 times a day. Refills: 5. naproxen (Naprosyn 500 mg Tab) 1 Tablets By Mouth 2 times a day. Refills: 0. naproxen (naproxen 500 mg oral enteric coated tablet) 1 Tablets By Mouth 2 times a day as needed Pain. Refills: 0. risperidone (risperidone 4 mg oral tablet) 1 Tablets By Mouth every day. Refills: 5. PATIENT EDUCATION INFORMATION: Instructions: Nausea and Vomiting, Adult; Cholelithiasis Follow up: With: Address: When: Fernando Clark [address], [address] [place], [place] [phone] [employer] (1) In 3 days 12/10/2022 Comments: General surgeon in [place] With: Address: When: Willie LOZADA [address], [address], [address] [address] Business (1) In 3 days 12/10/2022 Comments: General surgeon at [place] With: Address: When: Please return to the ED with any new or worsening symptoms including worsening pain, fevers and chills, worsening nausea and inability to tolerate a liquid diet. With: Address: When: You may follow with the general surgeon recommended to by your primary care provider. You have also been provided with the information for the local [facility] general surgeons. DIAGNOSIS: Cholelithiases; Nausea Normal [facility] ED Note-Physicianon 12-09-19 ED Note-Physician Basic Information Time Seen: Paul RAMIREZ, Lupis Gusman 12/07/2022 21:34 Chief Complaint Has had abdominal pain and nausea over last few days. Had an ultrasound that showed gall stones History of Present Illness 22-year-old female presents to the ED complaining of abdominal pain, nausea without vomiting. Patient symptoms have been ongoing for the last few days. Patient had an ultrasound yesterday as an outpatient which showed by her PCP which showed gallstones. Patient is here today due to persistent pain and nausea. Pain is in the epigastric area, no fevers, chills, diarrhea. Patient reports she is 6 months after a . No other abdominal surgeries. Review of Systems All organ systems are reviewed. Pertinent positive and negative findings as mentioned in the HPI. Physical Exam Vitals & Measurements T: 36.5 ?C(Oral) HR: 89(Peripheral) RR: 20 BP: 139/87 SpO2: 97% HT: 167.64 cm WT: 79 kg BMI: 28.11 GENERAL APPEARANCE: Well developed, well nourished, alert and cooperative, and appears to be in no acute distress. HEAD: normocephalic, atraumatic EYES: PERRL, EOMI. Vision is grossly intact. EARS: External auditory canals clear, hearing grossly intact. NOSE: No nasal discharge. THROAT: Oral cavity and pharynx normal. Oral mucosa moist. CARDIAC: Normal heart sounds, no murmurs. Rhythm is regular. LUNGS: Clear to auscultation without rales, rhonchi, wheezing or diminished breath sounds. ABDOMEN: Mild diffuse tenderness, abdomen is soft, nondistended. Negative Carlson sign. No pain over McBurney's point. MUSCULOSKELETAL: Adequately aligned spine. ROM intact spine and extremities. No joint erythema or tenderness. NEUROLOGICAL: CN grossly intact. Strength and sensation symmetric and intact throughout. SKIN: Skin normal color, texture and turgor with no lesions or eruptions. Assessment/Plan Cholelithiases (K80.20: Calculus of gallbladder without cholecystitis without obstruction) Nausea (R11.0: Nausea) Orders: dicyclomine, 10 mg = 1 cap(s), Oral, QID, PRN Pain, X 7 day(s), # 28 cap(s), Refills(s) 0, Pharmacy: [facility]/pharmacy #[id number], 167.6, cm, 12/07/22 21:32:00 EDT, Height/Length Dosing, 79, kg, 12/07/22 21:32:00 EDT, Weight Dosing ketorolac, 15 mg = 1 mL, Injection, IV Push, Once, Stop date 12/07/22 22:20:00 EDT, STAT, Start date 12/07/22 22:20:00 EDT, 12/07/22 22:20:00 EDT ondansetron, 4 mg = 2 mL, Injection, IV Push, Once, Stop date 12/07/22 22:21:00 EDT, STAT, Start date 12/07/22 22:21:00 EDT, 12/07/22 22:21:00 EDT ondansetron, 4 mg = 1 tab(s), Oral, q6hr, PRN Nausea, X 3 day(s), # 12 tab(s), Refills(s) 0, Pharmacy: [facility]/pharmacy #[id number], 167.6, cm, 12/07/22 21:32:00 EDT, Height/Length Dosing, 79, kg, 12/07/22 21:32:00 EDT, Weight Dosing potassium chloride, 40 mEq = 2 tab(s), Tab-ER, Oral, Once, Stop date 12/07/22 23:04:00 EDT, STAT, Start date 12/07/22 23:04:00 EDT, 12/07/22 23:04:00 EDT Automated Diff Basic Metabolic Panel CBC w/ Auto Diff eGFR Extra Blue Tube Extra SST Tube Hepatic Function Panel Lipase Level U Beta Hcg Qual UA With Cult Reflex Urine Culture 22-year-old female presents to the ED with complaints of abdominal pain, nausea. Had an outpatient ultrasound performed yesterday which showed gallstones. In the ED patient is afebrile, vital signs are stable, no acute distress. On exam patient has a relatively benign abdomen, no significant right upper quadrant pain, negative Carlson sign. Labs are reassuring, no leukocytosis, liver enzymes within normal limits. Most likely symptomatic cholelithiasis. Results are discussed with the patient at length. Discussed options such as admission for urgent cholecystectomy versus discharge home with nausea medicine and outpatient follow-up with general surgery at length. At this time patient has minimal pain, nausea controlled after Zofran and she was able to tolerate an potassium and liquids in the ED without vomiting. Patient regarding discharge home with outpatient follow-up with general surgery. She received referral for PCP today for a surgeon with [facility], also given information for the local [facility] surgeons. Patient is instructed to return to the ED with any new or worsening symptoms including worsening abdominal pain, fevers, chills, worsening nausea or vomiting. Patient voices understanding and is agreeable. Medications Administered Given ketorolac 15 mg/mL Inj, 15 mg, IV Push potassium chloride 20 mEq ER Tab, 40 mEq, Oral Zofran 4 mg/2 mL Injection, 4 mg, IV Push Disposition Plan Patient Discharge Condition improved, stable Discharge Disposition to home Discharge Prescription List Prescriptions Bentyl 10 mg Cap, 10 mg= 1 cap(s), Oral, QID, PRN Zofran 4 mg Tab, 4 mg= 1 tab(s), Oral, q6hr, PRN Follow-up With When Contact Information Fernando Clark In 3 days 12/10/2022 EDT [address] [facility], [address] [place] [phone] Business (1) Additional Instructions: General surgeon in [place] Willie LOZADA In 3 days 12/10/2022 EDT [address] (more content not included)... [facility] Comment on above: Result Comment: Elec tronically Signed By: Lupis Miller PA-C\.br\Date and Time Signed: 12/07/22 23:15 EDT\.br\Electronically Co-Signed By: Yash Medina DO\.br\Date and Time Co-Signed: 12/08/22 01:33 EDT ED Patient Education Noteon 12-08-2022 ED Patient Education Note Gastroenterology Nausea and Vomiting, Adult Nausea is the feeling that you have an upset stomach or that you are about to vomit. Vomiting is when stomach contents are thrown up and out of the mouth as a result of nausea. Vomiting can make you feel weak and cause you to become dehydrated. Dehydration can make you feel tired and thirsty, cause you to have a dry mouth, and decrease how often you urinate. Older adults and people with other diseases or a weak disease-fighting system (immune system) are at higher risk for dehydration. It is important to treat your nausea and vomiting as told by your health care provider. Follow these instructions at home: Watch your symptoms for any changes. Tell your health care provider about them. Follow these instructions to care for yourself at home. Eating and drinking ? Take an oral rehydration solution (ORS). This is a drink that is sold at pharmacies and retail stores. ? Drink clear fluids slowly and in small amounts as you are able. Clear fluids include water, ice chips, low-calorie sports drinks, and fruit juice that has water added (diluted fruit juice). ? Eat bland, rvor-qc-rbckfl foods in small amounts as you are able. These foods include bananas, applesauce, rice, lean meats, toast, and crackers. ? Avoid fluids that contain a lot of sugar or caffeine, such as energy drinks, sports drinks, and soda. ? Avoid alcohol. ? Avoid spicy or fatty foods. General instructions ? Take qewz-tch-jjcdytn and prescription medicines only as told by your health care provider. ? Drink enough fluid to keep your urine pale yellow. ? Wash your hands often using soap and water. If soap and water are not available, use hand local hazmat driver. ? Make sure that all people in your household wash their hands well and often. ? Rest at home while you recover. ? Watch your condition for any changes. ? Breathe slowly and deeply when you feel nauseated. ? Keep all follow-up visits as told by your health care provider. This is important. Contact a health care provider if: ? Your symptoms get worse. ? You have new symptoms. ? You have a fever. ? You cannot drink fluids without vomiting. ? Your nausea does not go away after 2 days. ? You feel light-headed or dizzy. ? You have a headache. ? You have muscle cramps. ? You have a rash. ? You have pain while urinating. Get help right away if: ? You have pain in your chest, neck, arm, or jaw. ? You feel extremely weak or you faint. ? You have persistent vomiting. ? You have vomit that is bright red or looks like black coffee grounds. ? You have bloody or black stools or stools that look like tar. ? You have a severe headache, a stiff neck, or both. ? You have severe pain, cramping, or bloating in your abdomen. ? You have difficulty breathing, or you are breathing very quickly. ? Your heart is beating very quickly. ? Your skin feels cold and clammy. ? You feel confused. ? You have signs of dehydration, such as: ? Dark urine, very little urine, or no urine. ? Cracked lips. ? Dry mouth. ? Sunken eyes. ? Sleepiness. ? Weakness. These symptoms may represent a serious problem that is an emergency. Do not wait to see if the symptoms will go away. Get medical help right away. Call your local emergency services (911 in the [place] Do not drive yourself to the hospital. Summary ? Nausea is the feeling that you have an upset stomach or that you are about to vomit. As nausea gets worse, it can lead to vomiting. Vomiting can make you feel weak and cause you to become dehydrated. ? Follow instructions from your health care provider about eating and drinking to prevent dehydration. ? Take zkxr-bht-xjcrqxj and prescription medicines only as told by your health care provider. ? Contact your health care provider if your symptoms get worse, or you have new symptoms. ? Keep all follow-up visits as told by your health care provider. This is important. This information is not intended to replace advice given to you by your health care provider. Make sure you discuss any questions you have with your health care provider. Document Released: 08/20/2006 Document Revised: 12/12/2019 Document Reviewed: 01/28/2019 [employer] Patient Education ? 2020 [employer]. Cholelithiasis Cholelithiasis is a form of gallbladder disease in which gallstones form in the gallbladder. The gallbladder is an organ that stores bile. Bile is made in the liver, and it helps to digest fats. Gallstones begin as small crystals and slowly grow into stones. They may cause no symptoms until the gallbladder tightens (contracts) and a gallstone is blocking the duct (gallbladder attack), which can cause pain. Cholelithiasis is also referred to as gallstones. There are two main types of gallstones: ? Cholesterol stones. These are made of hardened cholesterol and are usually yellow-green in (more content not included)... [facility] ED Patient Summaryon 023 ED Patient Summary [address] [address] Patient Discharge Instructions Person Information Name: DARLINE FALCON Age: 22 Years Arrival Date: 12/07/2022 21:25:41 Discharge Diagnosis: Cholelithiases; Nausea Primary Care Physician: Madhavi Bustamante MD Provider Information Primary Provider: Yash [place] DO Advanced Executive Assistant:Lupis Miller PA-C The exam and treatment you received in the Emergency Department were for an urgent problem and are not intended as complete care. It is important that you follow up with a doctor, nurse practitioner, or physician?s sales assistants and salespersons for ongoing care. If your symptoms become worse or you do not improve as expected and you are unable to reach your usual health care provider, you should return to the Emergency Department. We are available 24 hours a day. DARLINE FALCON has been given the following list of patient education materials, prescriptions and follow-up instructions: Follow-up Instructions: With: Address: When: Fernando Clark [address], [address] [place], [place] [phone] Business (1) In 3 days 12/10/2022 Comments: General surgeon in [place] With: Address: When: Willie LOZADA [address], [address], [address] [address] Business (1) In 3 days 12/10/2022 Comments: General surgeon at [place] With: Address: When: Please return to the ED with any new or worsening symptoms including worsening pain, fevers and chills, worsening nausea and inability to tolerate a liquid diet. With: Address: When: You may follow with the general surgeon recommended to by your primary care provider. You have also been provided with the information for the local [facility] general surgeons. In the event that this physician does not participate in your insurance network, please consult with your insurance company to find a nearby participating provider. Patient Education Materials: Nausea and Vomiting, Adult; Cholelithiasis A MESSAGE TO ALL PATIENTS REGARDING OPIOIDS PRESCRIPTION OPIOIDS: WHAT YOU NEED TO KNOW Prescription opioids can be used to help relieve sjtypipp-mm-ktibqr pain and are often prescribed following a surgery or injury, or for certain health conditions. These medications can be an important part of the treatment but also come with serious risks. It is important to work with your healthcare provider to make sure you are getting the safest, most effective care. WHAT ARE THE RISKS AND SIDE EFFECTS OF OPIOID USE? Prescription opioids carry serious risks of addiction and overdose, especially with prolonged use. An opioid overdose, often marked by slowed breathing, can cause sudden . The use of prescription opioids can have a number of side effects as well, even when taken as directed: ? Tolerance?meaning you might need to take more of the medication for the same pain relief ? Physical dependence?meaning you have symptoms of withdrawal when a medication is stopped ? Increased sensitivity to pain ? Constipation ? Nausea, vomiting, and dry mouth ? Sleepiness and dizziness ? Confusion ? Depression ? Low levels of testosterone that can result in lower sex drive, energy, and strength ? Itching and sweating RISKS ARE GREATER WITH: ? History of drug misuse, substance use disorder, or overdose ? Mental health conditions (such as depression or anxiety) ? Sleep apnea ? Older age (65 years and older) ? Avoid alcohol while taking prescription opioids. Also, unless specifically advised by your health care provider, medications to avoid include: ? Benzodiazepines (such as Xanax or Valium) ? Muscle relaxants (such as Soma or Flexeril) ? Hypnotics (such as Ambien or Lunesta) ? Other prescription opioids KNOW YOUR OPTIONS Talk to your health care provider about ways to manage your pain that don?t involve prescription opioids. Some of these options may actually work better and have fewer risks and side effects. Options may include: ? Pain relievers such as acetaminophen, ibuprofen, and naproxen ? Some medication that are also used for depression or seizures ? Physical therapy and exercise ? Cognitive behavioral therapy, a psychological, goal-directed approach, in which patients learn how to modify physical, behavioral, and emotional triggers of pain and stress. IF YOU ARE PRESCRIBED OPIOIDS FOR PAIN: ? Never take opioids in greater amounts or more often than prescribed. ? Follow up with your primary health care provider. o Work together to create a plan on how to manage your pain. o Talk about ways to help manage your pain that don?t involve prescription opioids. o Talk about any and all concerns and side effects. ? Help prevent misuse and abuse o Never sell or share prescription opioids. o Never use another person?s prescription opioids. ? Store prescription (more content not included)... Normal [facility] Hep Func Panelon 12-08-2022 Albumin [Mass/Vol] 4.4 g/dL Normal 3.3-5.0 [facility] Comment on above: Performed By: #### 2 905818, 5997399, 5071069, 09192394, 9872743, 9961090 ####[facility] [address] [place] [address] Albumin/Globulin (S) [Mass conc ratio] 1.3 Normal 1.1-2.2 [facility] Comment on above: Performed By: #### 2 690385, 0314975, 8250710, 05180036, 7878146, 5206106 ####[facility] [address] [place] [address] ALP [Catalytic activity/Vol] 65 Int._Unit/L Normal 21-98 [facility] Comment on above: Performed By: #### 2 172753, 0201327, 0940257, 10439652, 3646109, 0042573 ####[facility] [address] [place] [address] ALT No additional P-5'-P [Catalytic activity/Vol] 20 Int._Unit/L Normal 6-46 [facility] Comment on above: Performed By: #### 2 460626, 5600789, 4484967, 38645983, 7470090, 3411018 ####[facility] [address] [place] [address] AST [Catalytic activity/Vol] 19 Int._Unit/L Normal 5-43 [facility] Comment on above: Performed By: #### 2 159086, 4283820, 7582308, 88271729, 2228400, 2252933 ####[facility] [address] [place] [address] Bilirubin [Mass/Vol] 1.7 mg/dL High 0.0-1.1 [facility] Comment on above: Performed By: #### 2 739405, 9935626, 2933222, 49231080, 5625371, 9682593 ####[facility] [address] [place] [address] Bilirubin.direct [Mass/Vol] 0.2 mg/dL Normal 0.1-0.4 [facility] Comment on above: Performed By: #### 2 914648, 5605708, 0273178, 30647288, 0049488, 4016067 ####[address] [address] Bilirubin.indirect [Mass or moles/Vol] 1.5 mg/dL High 0.1-0.9 [facility] Comment on above: Performed By: #### 2 477920, 0323098, 4651984, 61936157, 5325436, 9354774 ####[address] [address] Globulin (S) [Mass/Vol] 3.3 g/dL Normal 1.4-4.0 [facility] Comment on above: Performed By: #### 2 735128, 5403909, 5232980, 91251301, 8689698, 9687585 ####[address] [address] Protein [Mass/Vol] 7.7 g/dL Normal 6.0-7.8 [facility] Comment on above: Performed By: #### 2 313693, 2738641, 7842983, 82918256, 5216724, 8592190 ####[address] [address] Lipase Levelon 12-08-2022 Lipase [Catalytic activity/Vol] 39 U/L Normal 13-58 [facility] Comment on above: Performed By: #### 2 557798, 7379387, 3495016, 39132422, 1585368, 8933496 ####[address] [place] [address] U BetaHcg Qualon 12-08-2022 HCG.beta subunit (U) [Moles/Vol] Negative Normal [facility] Comment on above: Performed By: #### 2 8076551, 24757799, 9497091 ####[facility] [address] [place] [address] UA With Cult Reflexon 2022 Bacteria LM Ql (Urine sed) 1+ /HPF Abnormal Trace [facility] Comment on above: Performed By: #### 2 4977333, 00565155, 8252896 ####[address] [address] Bilirubin Ql (U) Negative Normal Negative [facility] Comment on above: Performed By: #### 2 1340398, 38350774, 7713400 ####[place] [address] Clarity (U) CLEAR Normal Clear [facility] Comment on above: Performed By: #### 2 1759817, 79473862, 0332614 ####[address] [address] Color (U) YELLOW Normal Yellow [facility] Comment on above: Performed By: #### 2 2957858, 79789147, 3575991 ####[place] [address] Epithelial cells.squamous LM.HPF (Urine sed) [#/Area] 3-4 Normal 0-2 [facility] Comment on above: Performed By: #### 2 8912343, 85405145, 5551408 ####[facility] [address] [place] [address] Glucose Test strip (U) [Mass/Vol] Negative Normal Negative [facility] Comment on above: Performed By: #### 2 2955724, 83629937, 1536515 ####[address] [place] [address] Hemoglobin Ql (U) TRACE Abnormal Negative [facility] Comment on above: Performed By: #### 2 9456088, 23233912, 1936538 ####[address] [address] Ketones (U) [Mass/Vol] Negative Normal Negative [facility] Comment on above: Performed By: #### 2 2857154, 69596126, 1214059 ####[facility] [address] [place] [address] [place].plasma/Lithiu m.RBC (Bld) [Mass ratio] 0-3 Normal 0-3 [facility] Comment on above: Performed By: #### 2 1800166, 97516112, 9471444 ####[facility] [address] [place] [address] Nitrite Ql (U) Negative Normal Negative [facility] Comment on above: Performed By: #### 2 8809041, 36890868, 4007207 ####[address] [address] pH (U) 6.0 [pH] Invalid Interpretation Code 5.0-9.0 [facility] Comment on above: Performed By: #### 2 0143076, 33960104, 5732696 ####[address] [address] Protein (U) [Mass/Vol] Negative Normal Negative [facility] Comment on above: Performed By: #### 2 7212780, 91543175, 5532286 ####[address] [address] Specific gravity (U) [Rel density] 1.020 Invalid Interpretation Code 1.005-1.030 [facility] Comment on above: Performed By: #### 2 6608606, 04293644, 8825611 ####[facility] [address] [place] [address] Type of Urine collection method Clean Catch Normal [facility] Comment on above: Performed By: #### 2 1179432, 15444862, 6440176 ####[facility] [address] [place] [address] Urobilinogen Qn (U) 0.2 {Tuan'U}/dL Normal 0.0-1.0 [facility] Comment on above: Performed By: #### 2 1463944, 10989490, 8888646 ####[facility] [address] [place] [address] WBC Auto Ql (U) 2+ Abnormal Negative [facility] Comment on above: Performed By: #### 2 8117073, 65546984, 3343099 ####[facility] [address] [place] [address] WBC LM.HPF (Urine sed) [#/Area] 6-15 Abnormal 0-5 [facility] Comment on above: Performed By: #### 2 2634551, 42979479, 9889074 ####[facility] [address] [place] [address] eGFRon 12-08-2022 GFR/1.73 sq M.predicted among blacks MDRD (S/P/Bld) [Vol rate/Area] mL/min/{1.73_m2} Normal >=59 [facility] Comment on above: Order Comment: Order added by Discern Expert. Result Comment: eGFR is race adjusted. AA=. Performed By: #### 2 508672, 4616692, 0223612, 84614644, 6820750, 6382969 ####[facility] [address] [place] [address] GFR/1.73 sq M.predicted among non-blacks MDRD (S/P/Bld) [Vol rate/Area] mL/min/{1.73_m2} Normal >=59 [facility] Comment on above: Order Comment: Order added by Discern Expert. Result Comment: Kier Boiler asaf kidney disease could be indicated at eGFR's of less than 60 mL/min/1.73m2. Kidney failure is indicated at less than 15 mL/min/1.73m2. Performed By: #### 2 495103, 0202408, 9201078, 38445432, 7345429, 1975113 ####[facility] [address] [place] [address] Auto Diffon 12-07-2022 Basophils/100 WBC (Bld) 0.4 % Normal 0.0-2.0 [facility] Comment on above: Order Comment: Order Added by Discern Expert. Performed By: #### 2 827560, 4452647, 4214183, 86649977, 9625862, 0660548 ####[address] [place] [address] Basophils/Leukocytes Auto (Bld) [Pure # fraction] 0.0 E9/L Normal 0.0-0.2 [facility] Comment on above: Order Comment: Order Added by Discern Expert. Performed By: #### 2 022043, 4172532, 6859048, 61450257, 8015644, 4698300 ####[address] [address] Eosinophils/100 WBC (Bld) 3.1 % Normal 0.0-8.0 [facility] Comment on above: Order Comment: Order Added by Discern Expert. Performed By: #### 2 336973, 3564496, 7063847, 24658038, 2650751, 6891739 ####[address] [place] [address] Eosinophils/Leukocyte s Auto (Bld) [Pure # fraction] 0.3 E9/L Normal 0.0-0.5 [facility] Comment on above: Order Comment: Order Added by Discern Expert. Performed By: #### 2 747254, 2916093, 0442216, 60423807, 2774441, 1619747 ####[address] [place] [address] Lymphocytes/100 WBC (Bld) 17.3 % Normal 14.0-50.0 [facility] Comment on above: Order Comment: Order Added by Discern Expert. Performed By: #### 2 702602, 9699057, 1724316, 95696626, 7902455, 4940310 ####[address] [place] [address] Lymphocytes/Leukocyte s Auto (Bld) [Pure # fraction] 1.8 E9/L Normal 1.0-4.0 [facility] Comment on above: Order Comment: Order Added by Discern Expert. Performed By: #### 2 304856, 8053387, 4568635, 73374187, 6796548, 6572182 ####[facility] [address] [place] [address] Monocytes/100 WBC (Bld) 5.8 % Normal 4.0-14.0 [facility] Comment on above: Order Comment: Order Added by Discern Expert. Performed By: #### 2 721887, 7828776, 4150601, 19553261, 0291615, 4510896 ####[address] [place] [address] Monocytes/Leukocytes Auto (Bld) [Pure # fraction] 0.6 E9/L Normal 0.2-1.0 [facility] Comment on above: Order Comment: Order Added by Discern Expert. Performed By: #### 2 044932, 4862710, 5721832, 64305218, 2816695, 1889428 ####[address] [place] [address] Neutrophils/100 WBC (Bld) 73.4 % Normal 36.0-75.0 [facility] Comment on above: Order Comment: Order Added by Discern Expert. Performed By: #### 2 283876, 9178284, 5428426, 71077333, 8819158, 4272978 ####[address] [address] Neutrophils/Leukocyte s Auto (Bld) [Pure # fraction] 7.9 E9/L High 2.0-7.5 [facility] Comment on above: Order Comment: Order Added by Discern Expert. Performed By: #### 2 272886, 6872684, 5673263, 97045398, 2511868, 5249711 ####[address] [place] [address] CBC w/ Auto Diffon 3 Erythrocyte distribution width (RBC) [Ratio] 13.9 % Normal 10.9-14.2 [facility] Comment on above: Performed By: #### 2 797576, 2900274, 0309792, 11693551, 3677893, 5673754 ####[address] [address] Hematocrit (Bld) [Volume fraction] 44.1 % Normal 34.0-46.0 [facility] Comment on above: Performed By: #### 2 650849, 3351713, 4641960, 03133139, 0967132, 0994874 ####[address] [address] Hemoglobin (Bld) [Mass/Vol] 15.3 g/dL Normal 12.0-16.0 [facility] Comment on above: Performed By: #### 2 261216, 1974026, 7681276, 72741687, 1959350, 1508387 ####[place] [address] MCH (RBC) [Entitic mass] 30.0 pg Normal 27.0-34.0 [facility] Comment on above: Performed By: #### 2 637791, 1107212, 8964323, 51404997, 5215869, 5894306 ####[address] [address] MCHC (RBC) [Mass/Vol] 34.8 g/dL Normal 31.4-36.0 [facility] Comment on above: Performed By: #### 2 890166, 0082835, 9519818, 88705500, 9821526, 9449845 ####[address] [address] MCV (RBC) [Entitic vol] 86.4 fL Normal 80.0-100.0 [facility] Comment on above: Performed By: #### 2 033220, 5367563, 9068316, 44450529, 7182910, 3888361 ####[address] [address] Platelet mean volume (Bld) [Entitic vol] 8.7 fL Normal 6.4-10.8 [facility] Comment on above: Performed By: #### 2 063183, 4110638, 9890144, 11756933, 1176945, 8181188 ####[facility] [address] [place] [address] Platelets (Bld) [#/Vol] 221.0 E9/L Normal 150.0-500.0 [facility] Comment on above: Performed By: #### 2 292786, 7355945, 1420448, 39482626, 3931733, 4856336 ####[facility] [address] [place] [address] RBC (Bld) [#/Vol] 5.1 E12/L Normal 4.3-5.9 [facility] Comment on above: Performed By: #### 2 145514, 0089245, 9304951, 50097085, 8229313, 5861192 ####[facility] [address] [place] [address] WBC corrected for nucl RBC Auto (Bld) [#/Vol] 10.7 E9/L Normal 4.0-11.0 [facility] Comment on above: Performed By: #### 2 381017, 7495002, 6162495, 47823176, 4974257, 2948849 ####[facility] [address] [place] [address] CHEMISTRYOrdered By: SYSTEM SYSTEM on 12-07-2022 Albumin [Mass/Vol] 4.4 g/dL Normal 3.3 - 5.0 gm/dL [facility] Albumin/Globulin [Mass ratio] 1.3 {ratio} Normal 1.1 - 2.2 [facility] ALP [Catalytic activity/Vol] 65 [iU]/d Normal 21 - 98 Int._Unit/L [facility] ALT No additional P-5'-P [Catalytic activity/Vol] 20 [iU]/d Normal 6 - 46 Int._Unit/L [facility] Anion gap [Moles/Vol] 9 mmol/L Normal 6 - 16 mEq/L [facility] AST [Catalytic activity/Vol] 19 [iU]/d Normal 5 - 43 Int._Unit/L [facility] Bilirubin [Mass/Vol] 1.7 mg/dL High 0.0 - 1 .1 mg/dL [facility] Bilirubin.direct [Mass/Vol] 0.2 mg/dL Normal 0.1 - 0.4 mg/dL [facility] Bilirubin.indirect [Mass or moles/Vol] 1.5 mg/dL High 0.1 - 0.9 mg/dL [facility] Calcium [Mass/Vol] 8.9 mg/dL Normal 8.9 - 11. 1 mg/dL [facility] Chloride [Moles/Vol] 104 mmol/L Normal 101 - 1 11 mmol/L [facility] CO2 [Moles/Vol] 26 mmol/L Normal 21 - 31 mmol/L [facility] Creatinine [Mass/Vol] 0.7 mg/dL Normal 0.5 - 1.3 mg/dL [facility] GFR/1.73 sq M.predicted among blacks MDRD (S/P/Bld) [Vol rate/Area] mL/min/1.73 m2 Normal >=59mL/min/1. 73 m2 [facility] Chem S GFR/1.73 sq M.predicted among non-blacks MDRD (S/P/Bld) [Vol rate/Area] mL/min/1.73 m2 Normal >=59mL/min/1. 73 m2 [facility] Chem S Globulin (S) [Mass/Vol] 3.3 g/dL Normal 1.4 - 4.0 gm/dL [facility] Glucose [Mass/Vol] 103 mg/dL Normal 55 - 199 mg/dL [facility] Lipase [Catalytic activity/Vol] 39 U/L Normal 13 - 58 unit/L [facility] Potassium [Moles/Vol] 3.3 mmol/L Low 3.5 - 5.3 mmol/L [facility] Protein [Mass/Vol] 7.7 g/dL Normal 6.0 - 7.8 gm/dL [facility] Sodium [Moles/Vol] 136 mmol/L Normal 135 - 145 mmol/L [facility] Urea nitrogen [Mass/Vol] 12 mg/dL Normal 5 - 21 mg/dL [facility] Urea nitrogen/Creatinine [Mass ratio] 17 mg/mg Normal 10 - 20 [facility] Consent for Treatmenton Consent for Treatment [id number] Normal [facility] HEMATOLOGYOrdered By: SYSTEM SYSTEM on 12-07-2022 Basophils/100 WBC (Bld) 0.4 % Normal 0.0 - 2.0 % [facility] HemeAutoSS Basophils/Leukocytes Auto (Bld) [Pure # fraction] 0.0 E9/L Normal 0.0 - 0.2 E9/L [facility] HemeAutoSS Eosinophils/100 WBC (Bld) 3.1 % Normal 0.0 - 8.0 % [facility] HemeAutoSS Eosinophils/Leukocyte s Auto (Bld) [Pure # fraction] 0.3 E9/L Normal 0.0 - 0.5 E9/L [facility] HemeAutoSS Lymphocytes/100 WBC (Bld) 17.3 % Normal 14.0 - 50.0 % [facility] HemeAutoSS Lymphocytes/Leukocyte s Auto (Bld) [Pure # fraction] 1.8 E9/L Normal 1.0 - 4.0 E9/L [facility] HemeAutoSS Monocytes/100 WBC (Bld) 5.8 % Normal 4.0 - 14.0 % [facility] HemeAutoSS Monocytes/Leukocytes Auto (Bld) [Pure # fraction] 0.6 E9/L Normal 0.2 - 1.0 E9/L [facility] HemeAutoSS Neutrophils/100 WBC (Bld) 73.4 % Normal 36.0 - 75.0 % [facility] HemeAutoSS Neutrophils/Leukocyte s Auto (Bld) [Pure # fraction] 7.9 E9/L High 2.0 - 7.5 E9/L [facility] HemeAutoSS HEMATOLOGYOrdered By: Ricardo Hutchinson on 12-07-2022 Erythrocyte distribution width (RBC) [Ratio] 13.9 % Normal 10.9 - 14.2 % [facility] HemeAutoSS Hematocrit (Bld) [Volume fraction] 44.1 % Normal 34.0 - 46.0 % [facility]eAuto[facility] Hemoglobin (Bld) [Mass/Vol] 15.3 g/dL Normal 12.0 - 16.0 gm/dL [facility] HemeAutoSS MCH (RBC) [Entitic mass] 30.0 pg Normal 27.0 - 34.0 pg [facility] HemeAutoSS MCHC (RBC) [Mass/Vol] 34.8 g/dL Normal 31.4 - 36.0 gm/dL [facility] HemeAutoSS MCV (RBC) [Entitic vol] 86.4 fL Normal 80.0 - 100.0 fL [facility] HemeAutoSS Platelet mean volume (Bld) [Entitic vol] 8.7 fL Normal 6.4 - 10.8 fL [facility] HemeAutoSS Platelets (Bld) [#/Vol] 221.0 E9/L Normal 150.0 - 500.0 E9/L [facility]eAutoSS RBC (Bld) [#/Vol] 5.1 E12/L Normal 4.3 - 5.9 E12/L [facility] HemeAutoSS WBC corrected for nucl RBC Auto (Bld) [#/Vol] 10.7 E9/L Normal 4.0 - 11.0 E9/L [facility] HemeAutoSS SEROLOGYOrdered By: Kishan warner on 12-07-2022 HCG.beta subunit (U) [Moles/Vol] Negative Normal [facility] URINALYSISOrdered By: Kishan cisneros on 12-07-2022 Bacteria LM Ql (Urine sed) 1+ /HPF Invalid Interpretation Code Trace/HPF [facility] UA Auto SS Bilirubin Ql (U) Negative (12/07/22 9:55 PM) Normal Negative [facility] UA Auto SS Clarity (U) Clear (12/07/22 9:55 PM) Normal Clear [facility] UA Auto SS Color (U) Yellow (12/07/22 9:55 PM) Normal Yellow [facility] UA Auto SS Epithelial cells.squamous LM.HPF (Urine sed) [#/Area] 3-4 /HPF Normal 0-2/HPF [facility] UA Aut o SS Glucose Test strip (U) [Mass/Vol] Negative (12/07/22 9:55 PM) Normal Negative [facility] UA Auto SS Hemoglobin Ql (U) Trace *ABN* (12/07/22 9:55 PM) Invalid Interpretation Code Negative [facility] UA Auto SS Ketones (U) [Mass/Vol] Negative (12/07/22 9:55 PM) Normal Negative [facility] UA Auto SS [place].plasma/Lithiu m.RBC (Bld) [Mass ratio] 0-3 /HPF Normal 0-3/HPF [facility] UA Auto SS Nitrite Ql (U) Negative (12/07/22 9:55 PM) Normal Negative [facility]A Auto SS pH (U) 6.0 *NA* (12/07/22 9:55 PM) Invalid Interpretation Code 5.0 - 9.0 [facility] UA Auto SS Protein (U) [Mass/Vol] Negative (12/07/22 9:55 PM) Normal Negative [facility] UA Auto SS Specific gravity (U) [Rel density] 1.020 *NA* (12/07/22 9:55 PM) Invalid Interpretation Code 1.005 - 1.030 [facility] UA Auto SS UA Spec Desc Clean Catch (12/07/22 9:55 PM) Normal [facility] UA Auto SS Urobilinogen Qn (U) 0.7703676 {Tuan'U}/dL Normal 0.0 - 1.0 EU/dL [facility] UA Auto SS WBC Auto Ql (U) 2+ *ABN* (12/07/22 9:55 PM) Invalid Interpretation Code Negative [facility] UA Auto SS WBC LM.HPF (Urine sed) [#/Area] 6-15 /HPF Invalid Interpretation Code 0-5/HPF [facility] UA Auto SS ANGEL w/Reflex if POSon 2022 Nuclear Ab Ql (S) Negative Invalid Interpretation Code Negative [facility] Comment on above: Result Comment: Perf ormed at: [facility] [address] [id number] PhD Octaviano Chen Performed By: #### 1 8295309, 7350605, 55536289, 29356543, 68253843, 5327925, 3366618, 0895341 ####[facility] [address] [place] [address] Auto Diffon 12-04-2022 Basophils/100 WBC (Bld) 0.6 % Normal 0.0-2.0 [facility] Comment on above: Order Comment: Order Added by Discern Expert. Performed By: #### 1 4329612, 6497267, 16715161, 34452511, 77073508, 8160937, 2899278, 4307440 ####[facility] [address] [place] [address] Basophils/Leukocytes Auto (Bld) [Pure # fraction] 0.0 E9/L Normal 0.0-0.2 [facility] Comment on above: Order Comment: Order Added by Discern Expert. Performed By: #### 1 1469603, 5491737, 41924881, 83291014, 10265347, 6489198, 2988955, 7087942 ####[address] [place] [address] Eosinophils/100 WBC (Bld) 5.5 % Normal 0.0-8.0 [facility] Comment on above: Order Comment: Order Added by Discern Expert. Performed By: #### 1 7788784, 0435125, 05740994, 83088710, 57866075, 2634387, 5828913, 7087426 ####[address] [address] Eosinophils/Leukocyte s Auto (Bld) [Pure # fraction] 0.4 E9/L Normal 0.0-0.5 [facility] Comment on above: Order Comment: Order Added by Discern Expert. Performed By: #### 1 9947600, 4848297, 86823503, 59532775, 19908550, 0436992, 2652931, 7220928 ####[address] [address] Lymphocytes/100 WBC (Bld) 32.2 % Normal 14.0-50.0 [facility] Comment on above: Order Comment: Order Added by Discern Expert. Performed By: #### 1 6267362, 0874169, 90490325, 78930511, 59717380, 2868288, 0067035, 1239020 ####[address] [place] [address] Lymphocytes/Leukocyte s Auto (Bld) [Pure # fraction] 2.5 E9/L Normal 1.0-4.0 [facility] Comment on above: Order Comment: Order Added by Discern Expert. Performed By: #### 1 8228215, 1802740, 47455055, 82737099, 10256952, 3662688, 0770917, 1867483 ####[address] [place] [address] Monocytes/100 WBC (Bld) 6.7 % Normal 4.0-14.0 [facility] Comment on above: Order Comment: Order Added by Discern Expert. Performed By: #### 1 1910196, 4744150, 84917713, 16583953, 69398126, 1798639, 6954298, 7953496 ####[address] [place] [address] Monocytes/Leukocytes Auto (Bld) [Pure # fraction] 0.5 E9/L Normal 0.2-1.0 [facility] Comment on above: Order Comment: Order Added by Discern Expert. Performed By: #### 1 5656590, 0394738, 39925634, 47001487, 25387763, 7648572, 6145107, 7413509 ####[address] [place] [address] Neutrophils/100 WBC (Bld) 55.0 % Normal 36.0-75.0 [facility] Comment on above: Order Comment: Order Added by Discern Expert. Performed By: #### 1 7282204, 1436007, 09596749, 69988370, 99088216, 5502057, 4178967, 4981265 ####[address] [place] [address] Neutrophils/Leukocyte s Auto (Bld) [Pure # fraction] 4.2 E9/L Normal 2.0-7.5 [facility] Comment on above: Order Comment: Order Added by Discern Expert. Performed By: #### 1 1499416, 0422567, 11588714, 04225511, 54528280, 5757258, 0428179, 6503223 ####[address] [place] [address] CBC w/ Auto Diffon 3 Erythrocyte distribution width (RBC) [Ratio] 13.9 % Normal 10.9-14.2 [facility] Comment on above: Performed By: #### 1 2096880, 5039704, 07545800, 12515399, 51846059, 1960709, 4159100, 4530933 ####[facility] [address] [place] [address] Hematocrit (Bld) [Volume fraction] 41.1 % Normal 34.0-46.0 [facility] Comment on above: Performed By: #### 1 1694245, 4845888, 35728685, 56545661, 83217676, 7558152, 8250502, 7765915 ####[address] [place] [address] Hemoglobin (Bld) [Mass/Vol] 14.2 g/dL Normal 12.0-16.0 [facility] Comment on above: Performed By: #### 1 8202736, 4028417, 36351052, 64299384, 96791418, 6603559, 8508469, 5717590 ####[address] [place] [address] MCH (RBC) [Entitic mass] 30.1 pg Normal 27.0-34.0 [facility] Comment on above: Performed By: #### 1 8608650, 8119026, 64876320, 99123234, 30961724, 7156742, 4229173, 1803445 ####[address] [place] [address] MCHC (RBC) [Mass/Vol] 34.6 g/dL Normal 31.4-36.0 [facility] Comment on above: Performed By: #### 1 3204555, 7144451, 09799274, 56676614, 21758584, 0237202, 4292359, 5400866 ####[address] [place] [address] MCV (RBC) [Entitic vol] 87.1 fL Normal 80.0-100.0 [facility] Comment on above: Performed By: #### 1 3946334, 7694900, 94835685, 28152083, 46084375, 6424930, 9413748, 2532953 ####[facility] [address] [place] [address] Platelet mean volume (Bld) [Entitic vol] 8.4 fL Normal 6.4-10.8 [facility] Comment on above: Performed By: #### 1 4031939, 4382358, 44389319, 72823914, 65719536, 2899626, 7793658, 1766126 ####[facility] [address] [place] [address] Platelets (Bld) [#/Vol] 220.0 E9/L Normal 150.0-500.0 [facility] Comment on above: Performed By: #### 1 3186923, 1712561, 83907847, 29701974, 48306066, 0069841, 5986072, 1915723 ####[address] [place] [address] RBC (Bld) [#/Vol] 4.7 E12/L Normal 4.3-5.9 [facility] Comment on above: Performed By: #### 1 3300453, 0373982, 67357669, 48492826, 80011538, 0209152, 9338445, 8441647 ####[address] [place] [address] WBC corrected for nucl RBC Auto (Bld) [#/Vol] 7.7 E9/L Normal 4.0-11.0 [facility] Comment on above: Performed By: #### 1 5704815, 4334266, 22690040, 49994171, 47603711, 7001689, 5620406, 5479979 ####[address] [place] [address] CHEMISTRYOrdered By: SYSTEM SYSTEM on 12-04-2022 Albumin [Mass/Vol] 4.1 g/dL Normal 3.3 - 5.0 gm/dL [facility] Albumin/Globulin [Mass ratio] 1.4 {ratio} Normal 1.1 - 2.2 [facility] ALP [Catalytic activity/Vol] 60 [iU]/d Normal 21 - 98 Int._Unit/L [facility] ALT No additional P-5'-P [Catalytic activity/Vol] 21 [iU]/d Normal 6 - 46 Int._Unit/L [facility] Anion gap [Moles/Vol] 7 mmol/L Normal 6 - 16 mEq/L [facility] AST [Catalytic activity/Vol] 17 [iU]/d Normal 5 - 43 Int._Unit/L [facility] Bilirubin [Mass/Vol] 1.3 mg/dL High 0.0 - 1 .1 mg/dL [facility] Calcium [Mass/Vol] 8.8 mg/dL Low 8.9 - 11. 1 mg/dL [facility] Chloride [Moles/Vol] 107 mmol/L Normal 101 - 1 11 mmol/L [facility] CO2 [Moles/Vol] 27 mmol/L Normal 21 - 31 mmol/L [facility] Creatinine [Mass/Vol] 0.7 mg/dL Normal 0.5 - 1.3 mg/dL [facility] CRP [Mass/Vol] 0.6 mg/dL Normal <=1.9mg/dL FT Remis ol GFR/1.73 sq M.predicted among blacks MDRD (S/P/Bld) [Vol rate/Area] mL/min/1.73 m2 Normal >=59mL/min/1. 73 m2 FT Chem S GFR/1.73 sq M.predicted among non-blacks MDRD (S/P/Bld) [Vol rate/Area] mL/min/1.73 m2 Normal >=59mL/min/1. 73 m2 FT Chem S Globulin (S) [Mass/Vol] 3.0 g/dL Normal 1.4 - 4.0 gm/dL [facility] Glucose [Mass/Vol] 86 mg/dL Normal 55 - 199 mg/dL [facility] Potassium [Moles/Vol] 3.7 mmol/L Normal 3.5 - 5.3 mmol/L [facility] Protein [Mass/Vol] 7.1 g/dL Normal 6.0 - 7.8 gm/dL [facility] Sodium [Moles/Vol] 137 mmol/L Normal 135 - 145 mmol/L [facility] TSH Qn 1.11 m[IU]/L Normal 0.34 - 5.60 mcIU/mL [facility] Urea nitrogen [Mass/Vol] 10 mg/dL Normal 5 - 21 mg/dL [facility] Urea nitrogen/Creatinine [Mass ratio] 14 mg/mg Normal 10 - 20 [facility] CMPon 12-04-2022 Albumin [Mass/Vol] 4.1 g/dL Normal 3.3-5.0 [facility] Comment on above: Performed By: #### 1 3854128, 2290525, 87737040, 20333907, 83729495, 4183081, 4125865, 7753845 ####[facility] [address] [place] [address] Albumin/Globulin (S) [Mass conc ratio] 1.4 Normal 1.1-2.2 [facility] Comment on above: Performed By: #### 1 1493712, 8580709, 48583290, 63866013, 10234635, 6702268, 2201501, 7212320 ####[facility] [address] [place] [address] ALP [Catalytic activity/Vol] 60 Int._Unit/L Normal 21-98 [facility] Comment on above: Performed By: #### 1 6861736, 5147020, 59637989, 40656842, 79079168, 3340046, 0425582, 0767383 ####[facility] [address] [place] [address] ALT No additional P-5'-P [Catalytic activity/Vol] 21 Int._Unit/L Normal 6-46 [facility] Comment on above: Performed By: #### 1 7683211, 6547921, 23301807, 36634640, 87510274, 9637957, 3444614, 4401034 ####[facility] [address] [place] [address] Anion gap [Moles/Vol] 7 mmol/L Normal 6-16 [facility] Comment on above: Performed By: #### 1 9657820, 0769667, 67221021, 57389258, 30147243, 1845746, 8607496, 3771046 ####[facility] [address] [place] [address] AST [Catalytic activity/Vol] 17 Int._Unit/L Normal 5-43 [facility] Comment on above: Performed By: #### 1 7343864, 0173528, 14827836, 78263838, 94137075, 8254650, 8011667, 8298730 ####[facility] [address] [place] [address] Bilirubin [Mass/Vol] 1.3 mg/dL High 0.0-1.1 [facility] Comment on above: Performed By: #### 1 4221067, 1617268, 79455582, 16896752, 48737320, 1814304, 6512762, 8820631 ####[facility] [address] [place] [address] Calcium [Mass/Vol] 8.8 mg/dL Low 8.9-11.1 [facility] Comment on above: Performed By: #### 1 4577509, 8421964, 14013321, 53496075, 38886686, 6885762, 9455278, 4979314 ####[facility] [address] [place] [address] Chloride [Moles/Vol] 107 mmol/L Normal 101-111 [facility] Comment on above: Performed By: #### 1 4168003, 9857473, 79382961, 23492974, 59334367, 5659633, 1423905, 2226717 ####[facility] [address] [place] [address] CO2 [Moles/Vol] 27 mmol/L Normal 21-[address] [facility] Comment on above: Performed By: #### 1 6729371, 8026468, 19077899, 74327749, 14639058, 6056272, 8597214, 0357906 ####[facility] [address] [place] [address] Creatinine [Mass/Vol] 0.7 mg/dL Normal 0.5-1.3 [facility] Comment on above: Performed By: #### 1 2439613, 5690973, 04782474, 47894128, 74961717, 8175986, 1241951, 1049436 ####[facility] [address] [place] [address] Globulin (S) [Mass/Vol] 3.0 g/dL Normal 1.4-4.0 [facility] Comment on above: Performed By: #### 1 9134039, 5961762, 61474263, 67501534, 53334800, 4584553, 9985455, 9772939 ####[facility] [address] [place] [address] Glucose [Mass/Vol] 86 mg/dL Normal 55-199 [facility] Comment on above: Result Comment: If t his glucose result represents a fasting glucose, interpretation should refer to the following reference range: 55-99 mg/dL Performed By: #### 1 8969875, 2167346, 18335250, 05230038, 88858043, 5009823, 1483526, 2687867 ####[facility] [address] [place] [address] Potassium [Moles/Vol] 3.7 mmol/L Normal 3.5-5.3 [facility] Comment on above: Performed By: #### 1 8366588, 7241676, 28888945, 71541029, 77705081, 1431097, 7448970, 6795855 ####[facility] [address] [place] [address] Protein [Mass/Vol] 7.1 g/dL Normal 6.0-7.8 [facility] Comment on above: Performed By: #### 1 6667053, 3251877, 71459232, 38001846, 23651412, 3730054, 5147487, 8816187 ####[facility] [address] [place] [address] Sodium [Moles/Vol] 137 mmol/L Normal 135-145 [facility] Comment on above: Performed By: #### 1 4752692, 5450072, 14270369, 54729461, 10262398, 2052536, 1215962, 7921588 ####[facility] [address] [place] [address] Urea nitrogen [Mass/Vol] 10 mg/dL Normal 5-21 [facility] Comment on above: Performed By: #### 1 9953842, 8236965, 30317513, 64088908, 12971477, 6914665, 8312376, 3629631 ####[facility] [address] [place] [address] Urea nitrogen/Creatinine [Mass ratio] 14 No Units Normal 10-20 [facility] Comment on above: Performed By: #### 1 2041185, 4217397, 45798893, 06175899, 54541988, 6944692, 0309336, 3662503 ####[facility] [address] [place] [address] CRPon 12-04-2022 CRP [Mass/Vol] 0.6 mg/dL Normal <=1.9 [facility] Comment on above: Performed By: #### 1 1994674, 9550851, 15528170, 23563007, 04526907, 7874523, 3099398, 2652862 ####[facility] [address] [place] [address] Consent for Treatmenton Consent for Treatment [id number] #1.00CD:127 Normal [facility] HEMATOLOGYOrdered By: SYSTEM SYSTEM on 12-04-2022 Basophils/100 WBC (Bld) 0.6 % Normal 0.0 - 2.0 % [facility] Basophils/Leukocytes Auto (Bld) [Pure # fraction] 0.0 E9/L Normal 0.0 - 0.2 E9/L [facility]eAuto[facility] Eosinophils/100 WBC (Bld) 5.5 % Normal 0.0 - 8.0 % [facility]eAuto[facility] Eosinophils/Leukocyte s Auto (Bld) [Pure # fraction] 0.4 E9/L Normal 0.0 - 0.5 E9/L [facility]eAuto[facility] Lymphocytes/100 WBC (Bld) 32.2 % Normal 14.0 - 50.0 % [facility]eAuto[facility] Lymphocytes/Leukocyte s Auto (Bld) [Pure # fraction] 2.5 E9/L Normal 1.0 - 4.0 E9/L [facility]eAutoSS Monocytes/100 WBC (Bld) 6.7 % Normal 4.0 - 14.0 % [facility]eAuto[facility] Monocytes/Leukocytes Auto (Bld) [Pure # fraction] 0.5 E9/L Normal 0.2 - 1.0 E9/L [facility]eAuto[facility] Neutrophils/100 WBC (Bld) 55.0 % Normal 36.0 - 75.0 % [facility]eAuto[facility] Neutrophils/Leukocyte s Auto (Bld) [Pure # fraction] 4.2 E9/L Normal 2.0 - 7.5 E9/L [facility] HemeAutoSS HEMATOLOGYOrdered By: Magdalena Dai on 12-04-2022 Erythrocyte distribution width (RBC) [Ratio] 13.9 % Normal 10.9 - 14.2 % [facility]eAuto[facility] Hematocrit (Bld) [Volume fraction] 41.1 % Normal 34.0 - 46.0 % [facility]eAuto[facility] Hemoglobin (Bld) [Mass/Vol] 14.2 g/dL Normal 12.0 - 16.0 gm/dL [facility]eAuto[facility] MCH (RBC) [Entitic mass] 30.1 pg Normal 27.0 - 34.0 pg [facility]eAuto[facility] MCHC (RBC) [Mass/Vol] 34.6 g/dL Normal 31.4 - 36.0 gm/dL [facility]eAuto[facility] MCV (RBC) [Entitic vol] 87.1 fL Normal 80.0 - 100.0 fL [facility]eAutoSS Platelet mean volume (Bld) [Entitic vol] 8.4 fL Normal 6.4 - 10.8 fL [facility]eAutoSS Platelets (Bld) [#/Vol] 220.0 E9/L Normal 150.0 - 500.0 E9/L [facility] HemeAutoSS RBC (Bld) [#/Vol] 4.7 E12/L Normal 4.3 - 5.9 E12/L [facility] HemeAutoSS Sed Rate Automated 10 mm/h Normal 0 - 34 mm/hr [facility] HemeAutoSS WBC corrected for nucl RBC Auto (Bld) [#/Vol] 7.7 E9/L Normal 4.0 - 11.0 E9/L [facility] HemeAutoSS Physician Orderon 12-04-2022 Physician Order [id number]# 1.00CD:127 Normal [facility] Physician Order [id number]#1.00CD:127 Normal [facility] Sed Rate Automatedon 023 Sed Rate Automated 10 mm/hr Normal 0-34 [facility] Comment on above: Performed By: #### 1 3087803, 3587392, 35475534, 03548617, 71494089, 2179559, 1725801, 9851409 ####[facility] [address] [place] [address] TSH With T4fr Reflexon 12-04 TSH Qn 1.11 m[IU]/L Normal 0.34-5.60 [facility] Comment on above: Performed By: #### 1 2721464, 5255210, 96054437, 19425898, 01363228, 4624579, 9076810, 1183647 ####[facility] [address] [place] [address] US Abdomen, Limitedon 2022 US Abdomen, Limited Exam Date/Time: 12/04/2022 09:57 EDT Reason for Exam: R10.84 Report IMPRESSION: LIMITED VISUALIZATION OF THE GALLBLADDER SECONDARY TO CHOLELITHIASIS. ACUTE CHOLECYSTITIS SHOULD BE EXCLUDED CLINICALLY. EXAM: US Abdomen, Limited DATE: 12/04/2022 CLINICAL HISTORY: R10.84. COMPARISON: None available. TECHNIQUE: Transabdominal ultrasound of the right upper quadrant was performed. FINDINGS: There is limited visualization of the gallbladder secondary to numerous shadowing gallstones. There may be gallbladder wall thickening versus mild surrounding fat. There is no obvious gallbladder distention, pericholecystic fluid, biliary dilatation, or ascites identified. The common duct measures approximately 3 to 4 mm at the blanca hepatis. The visualized liver, pancreas, right kidney, and great vessels are unremarkable. Ordering Provider: Madhavi Bustamante FINAL REPORT Dictated: 12/04/2022 10:20 am Efrain Rubin MD Signed (Electronic Signature): 12/04/2022 10:20 am Signed by: Efrain Rubin MD Transcribed by: LITA Technologist: BREONNA Jason [facility] eGFRon 12-04-2022 GFR/1.73 sq M.predicted among blacks MDRD (S/P/Bld) [Vol rate/Area] mL/min/{1.73_m2} Normal >=59 [facility] Comment on above: Order Comment: Order added by Discern Expert. Result Comment: eGFR is race adjusted. AA=. Performed By: #### 1 6155149, 4940192, 64429236, 88028918, 18434407, 5630927, 4481354, 2119718 ####[facility] [address] [place] [address] GFR/1.73 sq M.predicted among non-blacks MDRD (S/P/Bld) [Vol rate/Area] mL/min/{1.73_m2} Normal >=59 [facility] Comment on above: Order Comment: Order added by Discern Expert. Result Comment: Kier Boiler asaf kidney disease could be indicated at eGFR's of less than 60 mL/min/1.73m2. Kidney failure is indicated at less than 15 mL/min/1.73m2. Performed By: #### 1 2601962, 6743253, 56711132, 95450671, 97127185, 4592937, 3198330, 0184360 ####[facility] [address] [place] [address] Physician Orderon 11-29-2022 Physician Order [id number] #1.00CD:127 Normal [facility] PAP ACOG PANEL 2: 21 to 29on 10-31-2022 . . Normal [facility] Comment on above: Performed By: #### R PRQ #### [facility] [address] [place] [address] Dr. Jerrod Bettencourt Age Gdln ACOG Testing 21-29 Normal [facility] Comment on above: Performed By: #### R PRQ #### [facility] [address] [address] [address] Jerrod Bettencourt DIAGNOSIS: Comment Abnormal [facility] Comment on above: Result Comment: EPIT HELIAL CELL ABNORMALITY. LOW GRADE SQUAMOUS INTRAEPITHELIAL LESION (LSIL). Performed By: #### R PRQ #### [facility] [address] [place] [address] Dr. Jerrod Bettencourt Electronically signed by: Comment Normal [facility] Comment on above: Result Comment: Rachna Navarrete MD, Pathologist Performed By: #### R PRQ #### [facility] [address] [place] [address] Dr. Jerrod Bettencourt Methodology: Comment [facility] Comment on above: Result Comment: This liquid based ThinPrep(R) pap test was screened with the use of an image guided system. Performed By: #### R PRQ #### [facility] [address] [place] [address] Dr. Jerrod Bettencourt Note: Comment Normal [facility] Comment on above: Result Comment: The Pap smear is a screening test designed to aid in the detection of premalignant and malignant conditions of the uterine cervix. It is not a diagnostic procedure and should not be used as the sole means of detecting cervical cancer. Both false-positive and false-negative reports do occur. . Performed By: #### R PRQ #### [facility] [address] [place] [address] Dr. Jerrod Bettencourt Pathologist Provided ICD10 Comment Normal [facility] Comment on above: Result Comment: [id number]. [id number] Performed By: #### R PRQ #### [facility] [address] [place] [address] Dr. Jerrod Bettencourt Performed by: Comment Normal [facility] Comment on above: Result Comment: Janet Abreu, Carpet Cleaning Technician (ASCP) Performed By: #### R PRQ #### [facility] [address] [place] [address] Dr. Jerrod Bettencourt Recommendation: Comment Abnormal [facility] Comment on above: Result Comment: Sugg est follow up as clinically appropriate. Performed By: #### R PRQ #### [facility] [address] [place] [address] Dr. Jerrod Bettencourt Reflex Criteria: Comment Normal [facility] Comment on above: Result Comment: The HPV DNA reflex criteria were not met with this specimen result therefore, no HPV testing was performed. . Performed By: #### R PRQ #### [facility] [address] [place] [address] Dr. Jerrod Bettencourt Specimen adequacy: Comment Normal [facility] Comment on above: Result Comment: Sati sfactory for evaluation. Endocervical and/or squamous metaplastic cells (endocervical component) are present. Performed By: #### R PRQ #### [facility] [address] [place] [address] Dr. Jerrod Bettencourt CBC AUTO DIFFon 06-04-2022 BASO # 0.1 103/ul Normal 0.0-0.1 [facility] Comment on above: Performed By: #### R PRQ #### [facility] [address] [place] [address] Dr. Jerrod Bettencourt Basophils/100 WBC (Bld) 0.3 % Normal 0.2-2.0 [facility] Comment on above: Performed By: #### R PRQ #### [facility] [address] [place] [address] Dr. Jerrod Bettencourt EO # 0.1 103/ul Normal 0.0-0.7 [facility] Comment on above: Performed By: #### R PRQ #### [facility] [address] [place] [address] Dr. Jerrod Bettencourt Eosinophils/100 WBC (Bld) 0.8 % Critically low 0.9-7.0 [facility] Comment on above: Performed By: #### R PRQ #### [facility] [address] [address] [address] Jerrod Bettencourt Erythrocyte distribution width (RBC) [Ratio] 13.2 % Normal 11.0-15.0 [facility] Comment on above: Performed By: #### R PRQ #### [facility] [address] [place] [address] Dr. Jerrod Bettencourt Hematocrit (Bld) [Volume fraction] 27.1 % Critically low 36.0-48.0 [facility] Comment on above: Performed By: #### R PRQ #### [facility] [address] [place] [address] Dr. Jerrod Bettencourt Hemoglobin (Bld) [Mass/Vol] 9.5 g/dL Critically low 12.0-16.0 [facility] Comment on above: Performed By: #### R PRQ #### [facility] [address] [place] [address] Dr. Jerrod Bettencourt IG # 0.08 10e3/ul Critically high 0.00-0.03 [facility] Comment on above: Performed By: #### R PRQ #### [facility] [address] [place] [address] Dr. Jerrod Bettencourt IG % 0.6 % Critically high 0.0-0.5 [facility] Comment on above: Performed By: #### R PRQ #### [facility] [address] [place] [address] Dr. Jerrod Bettencourt LYMPH # 2.0 103/ul Normal 1.2-3.8 [facility] Comment on above: Performed By: #### R PRQ #### [facility] [address] [place] [address] Dr. Jerrod Bettencourt Lymphocytes/100 WBC (Bld) 14.0 % Critically low 20.5-60.0 [facility] Comment on above: Performed By: #### R PRQ #### [facility] [address] [place] [address] Dr. Jerrod Bettencourt MANUAL DIFF REQ NO Normal [facility] Comment on above: Performed By: #### R PRQ #### [facility] [address] [address] [address] Jerrod Bettencourt MCH (RBC) [Entitic mass] 32.9 pg Normal 26.7-34.0 [facility] Comment on above: Performed By: #### R PRQ #### [facility] [address] [place] [address] Dr. Jerrod Bettencourt MCHC (RBC) [Mass/Vol] 35.1 g/dL Normal 29.9-35.2 [facility] Comment on above: Performed By: #### R PRQ #### [facility] [address] [address] [address] Jerrod Bettencourt MCV (RBC) [Entitic vol] 93.8 fL Normal 81.0-99.0 [facility] Comment on above: Performed By: #### R PRQ #### [facility] [address] [place] [address] Dr. Jerrod Bettencourt MONO # 1.1 103/ul Critically high 0.3-0.8 [facility] Comment on above: Performed By: #### R PRQ #### [facility] [address] [place] [address] Dr. Jerrod Bettencourt Monocytes/100 WBC (Bld) 7.9 % Normal 1.7-12.0 [facility] Comment on above: Performed By: #### R PRQ #### [facility] [address] [place] [address] Dr. Jerrod Bettencourt NEUT # 11.1 103/ul Critically high 1.4-6.5 [facility] Comment on above: Performed By: #### R PRQ #### [facility] [address] [place] [address] Dr. Jerrod Bettencourt Neutrophils/100 WBC (Bld) 76.4 % Critically high 43.0-75.0 [facility] Comment on above: Performed By: #### R PRQ #### [facility] [address] [place] [address] Dr. Jerrod Bettencourt Platelet mean volume (Bld) [Entitic vol] 10.6 fL Normal 9.5-13.5 [facility] Comment on above: Performed By: #### R PRQ #### [facility] [address] [address] [address] Jerrod Bettencourt PLT 147 103/ul Critically low 150-450 [facility] Comment on above: Performed By: #### R PRQ #### [facility] [address] [address] [address] Jerrod Bettencourt RBC 2.89 106/ul Critically low 4.20-5.40 [facility] Comment on above: Performed By: #### R PRQ #### [facility] [address] [address] [address] Jerrod Bettencourt WBC 14.5 103/ul Critically high 4.0-11.0 [facility] Comment on above: Performed By: #### R PRQ #### [facility] [address] [address] [address] Jerrod Bettencourt CBC AUTO DIFFon 06-02-2022 BASO # 0.1 103/ul Normal 0.0-0.1 [facility] Comment on above: Performed By: #### C BC ####[facility] [address] [address]DrMoises Bettencourt Basophils/100 WBC (Bld) 0.4 % Normal 0.2-2.0 [facility] Comment on above: Performed By: #### C BC ####[facility] [address] [address]Dr. Jerrod Bettencourt EO # 0.4 103/ul Normal 0.0-0.7 [facility] Comment on above: Performed By: #### C BC ####[facility] [address]DrMoises eBttencourt Eosinophils/100 WBC (Bld) 3.5 % Normal 0.9-7.0 [facility] Comment on above: Performed By: #### C BC ####[facility] [address]DrMoises Bettencourt Erythrocyte distribution width (RBC) [Ratio] 12.9 % Normal 11.0-15.0 [facility] [facility] Comment on above: Performed By: #### C BC ####[facility] [address]ox[address] [place] [address]Dr. Jerrod Bettencourt Hematocrit (Bld) [Volume fraction] 37.0 % Normal 36.0-48.0 [facility] Comment on above: Performed By: #### C BC ####[facility] Oqhjacruzd[address] [place] [address]DrMoises Bettencourt Hemoglobin (Bld) [Mass/Vol] 13.3 g/dL Normal 12.0-16.0 [facility] Comment on above: Performed By: #### C BC ####[facility] [address] [place], [place] [address]DrMoises Bettencourt IG # 0.10 10e3/ul Critically high 0.00-0.03 [facility] Comment on above: Performed By: #### C BC ####[facility] [address] [place], [place] [address]DrMoises Bettencourt IG % 0.8 % Critically high 0.0-0.5 [facility] Comment on above: Performed By: #### C BC ####[facility] [address] [place], [place] [address]DrMoises Bettencourt LYMPH # 2.6 103/ul Normal 1.2-3.8 [facility] Comment on above: Performed By: #### C BC ####[facility] Cxf[address]qsa[address] [place], [place] [address]DrMoises Bettencourt Lymphocytes/100 WBC (Bld) 21.6 % Normal 20.5-60.0 [facility] Comment on above: Performed By: #### C BC ####[facility] Zambndyjfw[address] [place], [place] [address]DrMoises Bettencourt MANUAL DIFF REQ NO Normal [facility] Comment on above: Performed By: #### C BC ####[facility] [address]otghjl[address] [place] [address]DrMoises Bettencourt MCH (RBC) [Entitic mass] 32.8 pg Normal 26.7-34.0 [facility] Comment on above: Performed By: #### C BC ####[facility] Pxjazrhmzf4[address] [place] [address]DrMoises Bettencourt MCHC (RBC) [Mass/Vol] 35.9 g/dL Critically high 29.9-35.2 [facility] Comment on above: Performed By: #### C BC ####[facility] Vosuxhwch[address] [place], [place] [address]DrMoises Bettencourt MCV (RBC) [Entitic vol] 91.1 fL Normal 81.0-99.0 [facility] Comment on above: Performed By: #### C BC ####[facility] G[address]atyw[address] [place], [place] [address]DrMoises Bettencourt MONO # 1.0 103/ul Critically high 0.3-0.8 [facility] Comment on above: Performed By: #### C BC ####[facility] Qtcprbccsy[address] [place], [place] [address]DrMoises Bettencourt Monocytes/100 WBC (Bld) 8.2 % Normal 1.7-12.0 [facility] Comment on above: Performed By: #### C BC ####[facility] Ltohmtrpyn[address] [place], [place] [address]DrMoises Bettencourt NEUT # 8.0 103/ul Critically high 1.4-6.5 [facility] Comment on above: Performed By: #### C BC ####[facility] Eqtlwawtxb[address] [place], [place] [address]DrMoises Bettencourt Neutrophils/100 WBC (Bld) 65.5 % Normal 43.0-75.0 [facility] Comment on above: Performed By: #### C BC ####[facility] [address] [place], [place] [address]DrMoises Bettencourt Platelet mean volume (Bld) [Entitic vol] 12.1 fL Normal 9.5-13.5 [facility] Comment on above: Performed By: #### C BC ####[facility] B[address]mdsxxta[address] [place], [place] [address]DrMoises Bettencourt PLT 181 103/ul Normal 150-450 [facility] Comment on above: Performed By: #### C BC ####[facility] Xsypodityn0381 [place], [place] [address]Bp. Jerrod Bettencourt RBC 4.06 106/ul Critically low 4.20-5.40 [facility] Comment on above: Performed By: #### C BC ####[facility] Kfwdurkrrf0327 [place], [place] [address]Jz. Jerrod Bettencourt WBC 12.2 103/ul Critically high 4.0-11.[address] [facility] Comment on above: Performed By: #### C BC ####[facility] Dmtmechhll7337 [place], [place] [address]VaMoises Jerrod Bettencourt Covid-19 PCR (CVDTB)on 05-06 SARS-CoV-2 (COVID-19) RNA KATHY+probe Ql (Unsp spec) Not detected Normal NOT DETECTED [facility] Comment on above: Result Comment: When diagnostic testing is negative, the possibility of a false negative should be considered in the context of a patient's recent exposures and the presence of clinical signs and symptoms consistent with SARS-CoV-2. This test is not yet approved or cleared by the [place] FDA. When there are no FDA-approved or cleared tests available, and other criteria are met, FDA can make tests available under an emergency access mechanism called an Emergency Use Authorization (EUA). The EUA for this test is supported by the [employer] of Health and Human Service's declaration that circumstances exist to justify the emergency use of in vitro diagnostics for the detection and/or diagnosis of the virus that causes COVID-19. This EUA will remain in effect for the duration of the COVID-19 declaration justifying emergency of IVDs, unless it is terminated or revoked by the FDA (after which the test may no longer be used). Performed By: #### C VDTBH #### [facility] [address] [place], [place] [address] Dr. Jerrod Bettencourt DRUG SCREEN RAPID (URINE)on 06-02-2022 AMP Negative Normal NEGATIVE [facility] Comment on above: Performed By: #### D RUGRPD ####[facility] [address] [place] [id number]. Tayloroseas Bettencourt BAR Negative Normal NEGATIVE [facility] Comment on above: Performed By: #### D RUGRPD ####[facility] E[address]om[address] [place] [address]Dr. Jerrod Bettencourt BUP Negative Normal NEGATIVE [facility] Comment on above: Performed By: #### D RUGRPD ####[facility] [address]hpqr[address] [place] [phone]. Jerrod Bettencourt BZO Negative Normal NEGATIVE [facility] Comment on above: Performed By: #### D RUGRPD ####[facility] Erjmblywpm[address] [place], [place] [address]Dr. Jerrod Bettencourt VERNA Negative Normal NEGATIVE [facility] Comment on above: Performed By: #### D RUGRPD ####[facility] [address]es[address]ut[address] [place], [place] [address]Dr. Jerrod Bettencourt CUT-OFFS SEE BELOW Normal [facility] Comment on above: Result Comment: AMP (Amphetamine): 500ng/mL, BAR (Barbituates): 200 ng/mL, BZO (Benzodiazepines): 150 ng/mL, BUP (Buprenorphine): 10 ng/mL, VERNA (Cocaine): 150 ng/mL, mAMP (Methamphetamine): 500 ng/mL, MTD (Methadone): 200 ng/mL, OPI (Opiates): 100 ng/mL, OXY (Oxycodone): 100 ng/mL, PCP (Phencyclidine): 25 ng/mL, PPX (Propoxyphene): 300 ng/mL, THC (Cannabinoids): 50 ng/mL, TCA (Trycyclic Antidepressants): 300 ng/mL Performed By: #### D RUGRPD ####[facility] Dir[address]se[address] [place], [place] [id number]. Jerrod Bettencourt DRUG CUT HEADER DRUG CLASS TEST SYSTEM CUT-OFF CONCENTRATIONS ARE FOLLOWS: Normal [facility] Comment on above: Performed By: #### D RUGRPD ####[facility] [address] [place], [place] [address]Dr. Jerrod Bettencourt mAMP Negative Normal NEGATIVE [facility] Comment on above: Performed By: #### D RUGRPD ####[facility] [address] [place] [address]Dr. Jerrod Bettencourt MTD Negative Normal NEGATIVE [facility] Comment on above: Performed By: #### D RUGRPD ####[facility] [address] [place] [phone]. Yioseas Bettencourt OPI Negative Normal NEGATIVE [facility] Comment on above: Performed By: #### D RUGRPD ####[facility] [address]pbplx[address] [place] [address]Dr. Yilan Bettencourt OXY Negative Normal NEGATIVE [facility] Comment on above: Performed By: #### D RUGRPD ####[facility] [address] [place] [address]Dr. Jerrod Bettencourt PCP Negative Normal NEGATIVE [facility] Comment on above: Performed By: #### D RUGRPD ####[facility] [address]cjcq[address] [place] [address]Dr. Jerrod Bettencourt PPX Negative Normal NEGATIVE [facility] Comment on above: Performed By: #### D RUGRPD ####[facility] [address]aw[address] [place] [address]Dr. Jerrod Bettencourt TCA Negative Normal NEGATIVE [facility] Comment on above: Performed By: #### D RUGRPD ####[facility] Rowtel[address]le[address] [place] [address]Dr. Jerrod Bettencourt THC Negative Normal NEGATIVE [facility] Comment on above: Performed By: #### D RUGRPD ####[facility] [address] [place] [address]Dr. Jerrod Bettencourt TYPE AND SCREENon 06-02-2022 TYPE AND SCREEN Negative Normal [facility] Comment on above: Performed By: #### T NS #### [facility] [address] [place] [address] [address] Jerrod Bettencourt US PREG BIOPHY W NON STRESSo n 06-01-2022 US PREG BIOPHY W NON STRESS EXAMINATION: US PREG BIOPHY W NON STRESS HISTORY: Excessive growth affecting management of mother COMPARISON: Ultrasound biophysical 05/24/2022 TECHNIQUE: Ultrasound biophysical profile was performed. FINDINGS: BREATHING MOVEMENTS: 2.0 GROSS BODY MOVEMENTS: 2.0 TONE: 2.0 QUALITATIVE AMNIOTIC FLUID VOLUME: 2.0 PRESENTATION: CEPHALIC HEART RATE: 140.6 bpm bpm. AMNIOTIC FLUID VOLUME: 13.6 cm GESTATIONAL AGE: 38 weeks 5 days CONCLUSION: Total biophysical profile score 8.0. Electronically authenticated by: MELITA MARTINEZ Date: 2022-06-01 16:30 Normal [facility] US PREG BIOPHY W NON STRESSo n 05-24-2022 US PREG BIOPHY W NON STRESS EXAMINATION: US PREG BIOPHY W NON STRESS HISTORY: Excessive growth affecting management of mother COMPARISON: No relevant comparison available. TECHNIQUE: Ultrasound biophysical profile was performed. FINDINGS: BREATHING MOVEMENTS: 2.0 GROSS BODY MOVEMENTS: 2.0 TONE: 2.0 QUALITATIVE AMNIOTIC FLUID VOLUME: 2.0 PRESENTATION: CEPHALIC HEART RATE: 140.6 bpm bpm. AMNIOTIC FLUID VOLUME: 18.9 cm GESTATIONAL AGE: 37 weeks 5 days CONCLUSION: Total biophysical profile score 8.0. Electronically authenticated by: MELITA MARTINEZ Date: 2022-05-24 17:37 Normal [facility] PREG GROWTHon 05-24-2022 US PREG GROWTH EXAMINATION: US PREG GROWTH HISTORY: Large for gestation age fetus COMPARISON: No relevant comparison available. FINDINGS: Heart Rate: 126.0 bpm Number: 1.0 Position: Cephalic Amniotic Fluid Volume: 22.4 cm; between fifth and 95th percentile Maximum Vertical Pocket: 6.8 cm BIOMETRY: BPD: 9.7 cm cm; 39 weeks 3 days HC: 35.2 cmcm; 41 weeks 0 days AC: 35.5 cm cm; 39 weeks 3 days FL: 7.4 cm cm; 37 weeks 5 days EFW: 3718.9 grams; 91% FL/AC: 20.8 FL/BPD: 76.3 HC/AC: 1.0 GESTATIONAL AGE: Age by EDC: 37 weeks 5 days AMAIRANI by EDC: 06/09/2022 Age by US: 39 weeks, 3 days AMAIRANI by US: 05/28/2022 IMPRESSION: 1. Single live intrauterine with growth detailed above. 2. 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 Electronically authenticated by: MELITA MARTINEZ Date: 2022-05-24 17:19 Normal [facility] US PREG BIOPHY W NON STRESSo n 05-17-2022 US PREG BIOPHY W NON STRESS EXAMINATION: US PREG BIOPHY W NON STRESS HISTORY: Excessive growth affecting management of mother COMPARISON: No relevant comparison available. TECHNIQUE: Ultrasound biophysical profile was performed in the radiology department. FINDINGS: BREATHING MOVEMENTS: 2.0 GROSS BODY MOVEMENTS: 2.0 TONE: 2.0 QUALITATIVE AMNIOTIC FLUID VOLUME: 2.0 PRESENTATION: CEPHALIC HEART RATE: 129.8 bpm H.B./min AMNIOTIC FLUID VOLUME: 18.3 cm cm GESTATIONAL AGE: 36 weeks 5 days CONCLUSION: Total biophysical profile score: 8.0 Electronically authenticated by: ELIAS YOUNG Date: 2022-05-17 16:56 Normal [facility] GROUP B STREP CULTUREon 05-04 S. agalactiae Ag Ql (Unsp spec) Culture Observations: NEGATIVE FOR GROUP B STREPTOCOCCUS. Normal [facility] Comment on above: Performed By: #### G BSCX ####[facility] [address] [place] [id number]. Jerrod Bettencourt US PREG BIOPHY W NON STRESSo n 05-11-2022 US PREG BIOPHY W NON STRESS EXAMINATION: US PREG BIOPHY W NON STRESS HISTORY: Excessive growth affecting management of mother COMPARISON: Ultrasound biophysical 05/02/2022 TECHNIQUE: Ultrasound biophysical profile was performed. FINDINGS: BREATHING MOVEMENTS: 2.0 GROSS BODY MOVEMENTS: 2.0 TONE: 2.0 QUALITATIVE AMNIOTIC FLUID VOLUME: 2.0 PRESENTATION: CEPHALIC HEART RATE: 139.9 bpm bpm. AMNIOTIC FLUID VOLUME: 18.9 cm GESTATIONAL AGE: 35 weeks 5 days CONCLUSION: 1. Total biophysical profile score 8.0 2. Again noted are small bilateral scrotal hydroceles.. Electronically authenticated by: MELITA MARTINEZ Date: 2022-05-11 16:48 Normal [facility] US PREG GROWTHon 05-09-2022 US PREG GROWTH EXAMINATION: US PREG GROWTH HISTORY: Large for gestation age fetus COMPARISON: No relevant comparison available. FINDINGS: Heart Rate: 155.0 bpm Amniotic Fluid Volume: 17.4 cm Number: 1.0 Position: Cephalic Maximum Vertical Pocket: 3.6 cm cm 5.9 cm cm 4.0 cm cm 3.9 cm cm BIOMETRY: BPD: 9.9 cm cm; 40 weeks 3 days; >97% HC: 35.4 cmcm; 41 weeks 2 days ; >97% AC: 35.1 cm cm; 39 weeks 0 days; >97% FL: 7.0 cm cm; 36 weeks 0 days; 55.7 % % EFW: 3586.1 grams, 7 lbs. 14 oz.,; >97% FL/AC: 20.0 FL/BPD: 71.2 HC/AC: 1.0 GESTATIONAL AGE: Age by EDC: 35 weeks 4 days AMAIRANI by EDC: 06/09/2022 Age by US: 38 weeks 2 days AMAIRANI by US: 05/21/2022 Other: Small bilateral scrotal hydroceles IMPRESSION: Large for gestational age. Estimated weight greater than the 97th percentile Small bilateral scrotal hydroceles Electronically authenticated by: ELIAS YOUNG Date: 2022-05-09 19:19 Normal [facility] US PREG BIOPHY W NON STRESSo n 05-03-2022 US PREG BIOPHY W NON STRESS EXAMINATION: US PREG BIOPHY W NON STRESS HISTORY: Excessive growth affecting management of mother COMPARISON: No relevant comparison available. TECHNIQUE: Ultrasound biophysical profile was performed in the radiology department. FINDINGS: BREATHING MOVEMENTS: 2 GROSS BODY MOVEMENTS: 2 TONE: 2 QUALITATIVE AMNIOTIC FLUID VOLUME: 2 PRESENTATION: CEPHALIC HEART RATE: 140.6 bpm H.B./min AMNIOTIC FLUID VOLUME: 22.8 cm cm GESTATIONAL AGE: 34 weeks 4 days CONCLUSION: Total biophysical profile score: 04/10 Electronically authenticated by: ELIAS YOUNG Date: 2022-05-03 09:31 Normal [facility] US PREG BIOPHY W NON STRESSo n 04-27-2022 US PREG BIOPHY W NON STRESS EXAMINATION: US PREG BIOPHY W NON STRESS HISTORY: Large for gestation age fetus COMPARISON: Ultrasound biophysical 04/19/2022 TECHNIQUE: Ultrasound biophysical profile was performed. FINDINGS: BREATHING MOVEMENTS: 2.0 GROSS BODY MOVEMENTS: 2.0 TONE: 2.0 QUALITATIVE AMNIOTIC FLUID VOLUME: 2.0 PRESENTATION: CEPHALIC HEART RATE: 142.1 bpm bpm. AMNIOTIC FLUID VOLUME: 23.1 cm GESTATIONAL AGE: 33 weeks 5 days CONCLUSION: Total biophysical profile score 8.0. Electronically authenticated by: MELITA MARTINEZ Date: 2022-04-27 16:18 Normal [facility] US PREG BIOPHY W NON STRESSo n 04-20-2022 US PREG BIOPHY W NON STRESS EXAMINATION: US PREG BIOPHY W NON STRESS HISTORY: Excessive growth affecting management of mother COMPARISON: No relevant comparison available. TECHNIQUE: Ultrasound biophysical profile was performed. FINDINGS: BREATHING MOVEMENTS: 2.0 GROSS BODY MOVEMENTS: 2.0 TONE: 2.0 QUALITATIVE AMNIOTIC FLUID VOLUME: 2.0 PRESENTATION: CEPHALIC HEART RATE: 136.4 bpm bpm. AMNIOTIC FLUID VOLUME: 21.4 cm GESTATIONAL AGE: 32 weeks 5 days CONCLUSION: Total biophysical profile score 8.0. Electronically authenticated by: MELITA MARTINEZ Date: 2022-04-20 19:03 Normal [facility] US PREG GROWTHon 04-11-2022 US PREG GROWTH EXAMINATION: US PREG GROWTH HISTORY: Large for gestation age fetus COMPARISON: No relevant comparison available. FINDINGS: Heart Rate: 139.0 bpm Amniotic Fluid Volume: 20.6 cm Number: 1.0 Position: Cephalic presentation, longitudinal lie Maximum Vertical Pocket: 6.6 cm cm 7.8 cm cm 4.3 cm cm 2.0 cm cm BIOMETRY: BPD: 8.6 cm cm; 34 weeks 3 days; > 97% HC: 31.2 cmcm; 34 weeks 6 days, 92% AC: 30.0 cm cm; 34 weeks 0 days, 97% FL: 6.2 cm cm; 32 weeks 1 days; 51.0 % % EFW: 2228.4 grams, 4 lbs. 15 oz., 94% FL/AC: 20.6 FL/BPD: 72.4 HC/AC: 1.0 GESTATIONAL AGE: Age by EDC: 31 weeks 4 days AMAIRANI by EDC: 06/09/2022 Age by US: 33 weeks 6 days AMAIRANI by US: 05/24/2022 IMPRESSION: Large for gestational age with BPD and abdominal circumference at the 97th percentile and estimated weight at the 94th percentile Electronically authenticated by: ELIAS YOUNG Date: 2022-04-11 18:41 Normal [facility] GLUCOSE - 1HRon 03-21-2022 Glucose [Mass/Vol] 137 mg/dL Critically high 74-106 [facility] Comment on above: Performed By: #### G 1 ####[facility] [address] [place] [phone]. Jerrod Bettencourt HEMOGRAM AND PLATELon 2021 Hematocrit (Bld) [Volume fraction] 36.1 % Normal 36.0-48.0 [facility] Comment on above: Performed By: #### H H ####[facility] [address] [place] [address]Dr. Jerrod Bettencourt Hemoglobin (Bld) [Mass/Vol] 12.4 g/dL Normal 12.0-16.0 [facility] Comment on above: Performed By: #### H H ####[facility] [address] [place] [address]Dr. Jerrod Bettencourt MCH (RBC) [Entitic mass] 32.6 pg Normal 26.7-34.0 [facility] Comment on above: Performed By: #### H H ####[facility] [address] [place], [place] [address]Dr. Jerrod Bettencourt MCHC (RBC) [Mass/Vol] 34.3 g/dL Normal 29.9-35.2 [facility] Comment on above: Performed By: #### H H ####[facility] [address] [place], [place] [address]Dr. Jerrod Bettencourt MCV (RBC) [Entitic vol] 95.0 fL Normal 81.0-99.0 [facility] Comment on above: Performed By: #### H H ####[facility] [address] [place] [address]Dr. Jerrod Bettencourt PLT 203 103/ul Normal 150-450 [facility] Comment on above: Performed By: #### H H ####[facility] [address] [place] [address]Dr. Jerrod Bettencourt RBC 3.80 106/ul Critically low 4.20-5.40 [facility] Comment on above: Performed By: #### H H ####[facility] [address] [place] [address]Dr. Jerrod Bettencourt WBC 10.9 103/ul Normal 4.0-11.0 [facility] Comment on above: Performed By: #### H H ####[facility] [address] [place] [address]Dr. Jerrod Bettencourt TYPE AND SCREENon 03-21-2022 TYPE AND SCREEN Negative Normal [facility] Comment on above: Performed By: #### T NS ####[facility] [address] [place] [address]Dr. Jerrod Bettencourt CULTURE URINEon 02-20-2022 CULTURE URINE Culture Observations: LIGHT GROWTH OF MIXED GENITAL PALMER. NO POTENTIAL PATHOGENS SEEN. Normal [facility] Comment on above: Performed By: #### U RCX #### [facility] [address] [place] [address] Dr. Jerrod Bettencourt UA RANDOM W/MICROSCOPICon BACTERIA MODERATE Abnormal NONE SEEN [facility] Comment on above: Performed By: #### R PRQ #### [facility] [address] [place] [address] Dr. Jerrod Bettencourt Bilirubin Ql (U) Negative Normal NEGATIVE The [facility] Comment on above: Performed By: #### R PRQ #### [facility] [address] [place] [address] Dr. Jerrod Bettencourt CAST SEEN Abnormal NONE SEEN [facility] Comment on above: Performed By: #### R PRQ #### [facility] [address] [place] [address] Dr. Jerrod Bettencourt Clarity (U) CLEAR Normal CLEAR [facility] Comment on above: Performed By: #### R PRQ #### [facility] [address] [place] [address] Dr. Jerrod Bettencourt Color (U) LT. YELLOW Normal YELLOW [facility] Comment on above: Performed By: #### R PRQ #### [facility] [address] [place] [address] Dr. Jerrod Bettencourt Crystals LM Nom (Urine sed) NONE SEEN Normal NONE SEEN [facility] Comment on above: Performed By: #### R PRQ #### [facility] [address] [place] [address] Dr. Jerrod Bettencourt Epithelial cells LM Ql (Urine sed) MANY Abnormal NONE SEEN /RARE [facility] Comment on above: Performed By: #### R PRQ #### [facility] [address] [place] [address] [address] Jerrod Bettencourt Glucose Ql (U) Negative Normal NEGATIVE [facility] Comment on above: Performed By: #### R PRQ #### [facility] [address] [place] [address] [address] Jerrod Bettencourt Hemoglobin Ql (U) Negative Normal NEGATIVE [facility] Comment on above: Performed By: #### R PRQ #### [facility] [address] [place] [address] [address] Jerrod Bettencourt HYALINE CAST FEW Normal [facility] Comment on above: Performed By: #### R PRQ #### [facility] [address] [place] [address] Dr. Jerrod Bettencourt Ketones Ql (U) Negative Normal NEGATIVE [facility] Comment on above: Performed By: #### R PRQ #### [facility] [address] [place] [address] Dr. Jerrod Bettencourt LEUKOCYTES LARGE Abnormal NEGATIVE [facility] Comment on above: Performed By: #### R PRQ #### [facility] [address] [place] [address] [address] Jerrod Bettencourt MUCOUS TRACE Abnormal NONE SEEN [facility] Comment on above: Performed By: #### R PRQ #### [facility] [address] [place] [address] [address] Jerrod Bettencourt Nitrite Ql (U) Negative Normal NEGATIVE [facility] Comment on above: Performed By: #### R PRQ #### [facility] [address] [place] [address] [address] Jerrod Bettencourt pH (U) 7.5 [pH] Normal 5-9 [facility] Comment on above: Performed By: #### R PRQ #### [facility] [address] [place] [address] [address] Jerrod Bettencourt RBC 0-2 Normal 0-2 [facility] Comment on above: Performed By: #### R PRQ #### [facility] [address] [place] [address] [address] Jerrod Bettencourt SPEC GRAVITY 1.020 Normal 1.005-<=1.025 [facility] Comment on above: Performed By: #### R PRQ #### [facility] [address] [place] [address] [address] Jerrod Bettencourt UA PROTEIN Negative Normal NEGATIVE/ TRACE [facility] Comment on above: Performed By: #### R PRQ #### [facility] [address] [place] [address] [address] Jerrod Bettencourt Urobilinogen Qn (U) 0.2 {Tuan'U}/dL Normal 0.2 - 1. 0 [facility] Comment on above: Performed By: #### R PRQ #### [facility] [address] [place] [address] Dr. Jerrod Bettencourt WBC 5-10 Abnormal NONE SEEN [facility] Comment on above: Performed By: #### R PRQ #### [facility] [address] [place] [address] [address] Jerrod Bettencourt US PREG ANATOMY SINGLEon US PREG ANATOMY SINGLE EXAMINATION: US PREG ANATOMY SINGLE HISTORY: anatomy study COMPARISON: No relevant comparison available. TECHNIQUE: Transabdominal sonographic examination was performed for obstetrical and evaluation. FINDINGS: Number: 1 Heart Rate: 151.0 bpm H.B. /min Amniotic Fluid Volume: Subjectively normal Placental Location: POSTERIOR with lower margin 4.6 cm from os. Cervix Length: 5 cm , closed. BIOMETRY: BPD: 5.1 cm 21 weeks 4 days HC: 18.4 cm 20 weeks 6 days AC: 16.4 cm 21 weeks 3 days FL: 3.5 cm 21 weeks 1 days EFW:410.8 grams; 87% FL/AC: 21.6 FL/BPD: 69.0 HC/AC: 1.1 GESTATIONAL AGE: Age by EDC: 20 weeks 3 days AMAIRANI by EDC: 06/09/2022 Age by current US: 21 weeks 2 days AMAIRANI by current US: 06/03/2022 IMPRESSION: 1. Single live intrauterine with growth detailed above. Electronically authenticated by: MELITA MARTINEZ Date: 2022-01-23 09:58 Normal [facility] AFP MATERNAL FOR SPINA BIFID Aon 01-19-2022 AFP MoM 0.62 Normal [facility] Comment on above: Performed By: #### A FPMAT ####[facility] [address] [place] [id number]. Jerrod Bettencourt AFP Value 32.3 ng/mL Normal [facility] Comment on above: Performed By: #### A FPMAT ####[facility] [address] [id number]. Jerrod Bettencourt AFP, Serum for Spina Bifida Report Normal [facility] Comment on above: Performed By: #### A FPMAT ####[facility] [address] [place] [address]Dr. Jerrod Bettencourt Comment Comment Normal [facility] Comment on above: Result Comment: Fernandez Silverio, Ph.D., [facility] Director . References: Available Upon Request. . Multiples Of Median Cutoffs For AFP Elevations Weeks 2.5 Black 2.8 IDD 2.0 Twins 4.5 Abbreviation Definitions IDD - Insulin Dep Diabetes OSBR - Open Spina Bifida Risk . For further inquiries contact [employer] [facility] at [phone]. Performed By: #### A FPMAT ####[facility] [address] [address]Dr. Jerrod Bettencourt Gest Age Collection Date 19.4 weeks Normal [facility] Comment on above: Performed By: #### A FPMAT ####[facility] [address] [phone]. Jerrod Bettencourt Gestat, Age Based on LMP Normal [facility] Comment on above: Result Comment: Reca lculations are not recommended when gestational dating by LMP and ultrasound are within 10 days. Performed By: #### A FPMAT ####[facility] [address] [id number]. Jerrod Bettencourt Insulin Dep Diabetes No Normal [facility] Comment on above: Performed By: #### A FPMAT ####[facility] [address] [address]Dr. Jerrod Bettencourt Interpretation Comment Normal [facility] Comment on above: Result Comment: Inte rpretation: Screen Negative . This result is screen negative for OSB. The AFP MoM calculated is based on the gestational age provided. MS-AFP can identify up to 80% of open neural tube defects. Closed neural tube defects and some open defects may not be detected by this test. This test does not screen for Down Syndrome or Trisomy 18. If screening for Down Syndrome or Trisomy 18 is desired, contact [facility] [employer] [facility] to discuss available options. The [employer] recommends amniocentesis be offered to women age 35 and older. Performed By: #### A FPMAT ####[facility] [address] [address]DrMoises Bettencourt [age] Normal [facility] Comment on above: Performed By: #### A FPMAT ####[facility] [address] [place] [address]DrMoises Bettencourt Multiple Gestation No Normal [facility] Comment on above: Performed By: #### A FPMAT ####[facility] [address] [address]Dr. Jerrod Bettencourt OS[place] 1 [place] [address] Normal [facility] Comment on above: Performed By: #### A FPMAT ####[facility] [address] [phone]. Jerrod Bettencourt PDF . Normal [facility] Comment on above: Performed By: #### A FPMAT ####[facility] [address] [phone]. Jerrod Bettencourt Race Normal [facility] Comment on above: Performed By: #### A FPMAT ####[facility] [address] [place] [address]DrMoises Bettencourt Test Results: Negative Normal [facility] Comment on above: Performed By: #### A FPMAT ####[facility] [address] [place] [phone] Bettencourt CHLAMYDIA/GONOCOCCUS KATHY (SW AB/URINE/PAPon 12-26-2021 Chlamydia trachomatis, KATHY Negative Normal Negative [facility] Comment on above: Performed By: #### R PRQ #### [facility] [address] [place] [address] Dr. Jerrod Bettencourt Neisseria gonorrhoeae, KATHY Negative Normal Negative [facility] Comment on above: Performed By: #### R PRQ #### [facility] [address] [place] [address] Dr. Jerrod Bettencourt VAGINITIS/VAGINOSIS DNA PROB Salvador 12-25-2021 Rosalinda species Negative Normal Negative [facility] Comment on above: Performed By: #### V AGINT ####[facility] [address] [place] [address]Dr. Jerrod Bettencourt Gardnerella vaginalis Positive Abnormal Negative [facility] Comment on above: Performed By: #### V AGINT ####[facility] [address] [place] [address]Dr. Jerrod Bettencourt Trichomonas vaginalis Negative Normal Negative [facility] Comment on above: Performed By: #### V AGINT ####[facility] [address] [place] [address]Dr. Jerrod Bettencourt CULTURE URINEon 11-27-2021 CULTURE URINE Isolate 1 Staphylococcus epidermidis (pure growth) >100,000 cfu/mL of ORGANISM 1 Staphylococcus epidermidis (pure growth) ANTIBIOTIC M.I.C RX STATUS Beta-Lactamase Neg NEG F Cefoxitin Screen Neg NEG F Benzylpenicillin <=0.03 S F Gentamicin <=0.5 S F Ciprofloxacin <=0.5 S F Levofloxacin <=0.12 S F Moxifloxacin <=0.25 S F Inducible Clindamycin Resistance Neg NEG F Quinupristin/Dalfopr istin <=0.25 S F Linezolid 1 S F Vancomycin 1 S F Tetracycline <=1 S F Nitrofurantoin <=16 S F Rifampicin <=0.5 S F Trimethoprim/Sulfame thoxazole <=10 S F Oxacillin <=0.25 S F Normal [facility] Comment on above: Performed By: #### U RCX #### [facility] [address] [place] [address] Dr. Jerrod Bettencourt HEP B SURFACE ANTIGEN SCREEN on 11-27-2021 HBsAg Screen Negative Normal Negative [facility] Comment on above: Performed By: #### R PRQ #### [facility] [address] [place] [address] Dr. Jerrod Bettencourt HEPATITIS C VIRUS AB W/ REFL EX QUANTon 11-27-2021 HCV AB <0.1 Normal 0.0-0.9 [facility] Comment on above: Performed By: #### R PRQ #### [facility] [address] [place] [address] Dr. Jerrod Bettencourt Interpretation: Comment Normal [facility] Comment on above: Result Comment: Nega tive Not infected with HCV, unless recent infection is suspected or other evidence exists to indicate HCV infection. Performed By: #### R PRQ #### [facility] [address] [place] [address] Dr. Jerrod Bettencourt HIV 1 AND 2 WITH REFLEXon HIV Screen 4th Generation wRfx Non-Reactive Normal Non Reactive [facility] Comment on above: Result Comment: HIV Negative HIV-1/HIV-2 antibodies and HIV-1 p24 antigen were NOT detected. There is no laboratory evidence of HIV infection. Performed By: #### R PRQ #### [facility] [address] [place] [address] Dr. Jerrod Bettencourt RPR QUANTon 11-27-2021 Rapid Plasma Reagin, Quant Non-Reactive Normal NonRea<1:1 [facility] Comment on above: Performed By: #### R PRQ #### [facility] [address] [place] [address] Dr. Jerrod Bettencourt RUBELLA AB IGGon 11-27-2021 Rubella Antibodies, IgG 1.52 index Normal Immune >0.99 [facility] Comment on above: Result Comment: Non- immune <0.90 Equivocal 0.90 - 0.99 Immune >0.99 Performed By: #### R PRQ #### [facility] [address] [place] [address] Dr. Jerrod Bettencourt CBC AUTO DIFFon 11-25-2021 BASO # 0.0 103/ul Normal 0.0-0.1 [facility] Comment on above: Performed By: #### R PRQ #### [facility] [address] [place] [address] Dr. Jerrod Bettencourt Basophils/100 WBC (Bld) 0.3 % Normal 0.2-2.0 [facility] Comment on above: Performed By: #### R PRQ #### [facility] [address] [place] [address] Dr. Jerrod Bettencourt EO # 0.3 103/ul Normal 0.0-0.7 [facility] Comment on above: Performed By: #### R PRQ #### [facility] [address] [place] [address] Dr. Jerrod Bettencourt Eosinophils/100 WBC (Bld) 2.2 % Normal 0.9-7.0 [facility] Comment on above: Performed By: #### R PRQ #### [facility] [address] [place] [address] Dr. Jerrod Bettencourt Erythrocyte distribution width (RBC) [Ratio] 13.4 % Normal 11.0-15.0 [facility] Comment on above: Performed By: #### R PRQ #### [facility] [address] [place] [address] Dr. Jerrod Bettencourt Hematocrit (Bld) [Volume fraction] 39.5 % Normal 36.0-48.0 [facility] Comment on above: Performed By: #### R PRQ #### [facility] [address] [place] [address] Dr. Jerrod Bettencourt Hemoglobin (Bld) [Mass/Vol] 14.2 g/dL Normal 12.0-16.0 [facility] Comment on above: Performed By: #### R PRQ #### [facility] [address] [place] [address] Dr. Jerrod Bettencourt IG # 0.05 10e3/ul Critically high 0.00-0.03 [facility] Comment on above: Performed By: #### R PRQ #### [facility] [address] [place] [address] Dr. Jerrod Bettencourt IG % 0.4 % Normal 0.0-0.5 [facility] Comment on above: Performed By: #### R PRQ #### [facility] [address] [place] [address] Dr. Jerrod Bettencourt LYMPH # 2.8 103/ul Normal 1.2-3.8 [facility] Comment on above: Performed By: #### R PRQ #### [facility] [address] [place] [address] Dr. Jerrod Bettencourt Lymphocytes/100 WBC (Bld) 22.8 % Normal 20.5-60.0 [facility] Comment on above: Performed By: #### R PRQ #### [facility] [address] [place] [address] Dr. Jerrod Bettencourt MANUAL DIFF REQ NO Normal [facility] Comment on above: Performed By: #### R PRQ #### [facility] [address] [place] [address] Dr. Jerrod Bettencourt MCH (RBC) [Entitic mass] 31.6 pg Normal 26.7-34.0 [facility] Comment on above: Performed By: #### R PRQ #### [facility] [address] [place] [address] Dr. Jerrod Bettencourt MCHC (RBC) [Mass/Vol] 35.9 g/dL Critically high 29.9-35.2 [facility] Comment on above: Performed By: #### R PRQ #### [facility] [address] [place] [address] Dr. Jerrod Bettencourt MCV (RBC) [Entitic vol] 87.8 fL Normal 81.0-99.0 [facility] Comment on above: Performed By: #### R PRQ #### [facility] [address] [place] [address] Dr. Jerrod Bettencourt MONO # 0.8 103/ul Normal 0.3-0.8 [facility] Comment on above: Performed By: #### R PRQ #### [facility] [address] [place] [address] Dr. Jerrod Bettencourt Monocytes/100 WBC (Bld) 6.8 % Normal 1.7-12.0 [facility] Comment on above: Performed By: #### R PRQ #### [facility] [address] [place] [address] Dr. Jerrod Bettencourt NEUT # 8.2 103/ul Critically high 1.4-6.5 [facility] Comment on above: Performed By: #### R PRQ #### [facility] [address] [place] [address] Dr. Jerrod Bettencourt Neutrophils/100 WBC (Bld) 67.5 % Normal 43.0-75.0 [facility] Comment on above: Performed By: #### R PRQ #### [facility] [address] [place] [address] Dr. Jerrod Bettencourt Platelet mean volume (Bld) [Entitic vol] 9.5 fL Normal 9.5-13.5 [facility] Comment on above: Performed By: #### R PRQ #### [facility] [address] [place] [address] Dr. Jerrod Bettencourt PLT 235 103/ul Normal 150-450 [facility] Comment on above: Performed By: #### R PRQ #### [facility] [address] [place] [address] Dr. Jerrod Bettencourt RBC 4.50 106/ul Normal 4.20-5.40 [facility] Comment on above: Performed By: #### R PRQ #### [facility] [address] [place] [address] Dr. Jerrod Bettencourt WBC 12.2 103/ul Critically high 4.0-11.0 [facility] Comment on above: Performed By: #### R PRQ #### [facility] [address] [place] [address] Dr. Jerrod Bettencourt GLYCOHEMOGLOBIN A1Con 2021 ADA RECOMMENDATION ADA THERAPEUTIC TARGET 6.0 - 7.0 ACTION SUGGESTED > 7.0 Normal [facility] Comment on above: Performed By: #### R PRQ #### [facility] [address] [place] [address] Dr. Jerrod Bettencourt Glucose [Mass/Vol] 94 mg/dL Normal [facility] Comment on above: Performed By: #### R PRQ #### [facility] [address] [address] [address] Jerrod Bettencourt HbA1c (Bld) [Mass fraction] 4.9 % Normal <=6.0 [facility] Comment on above: Performed By: #### R PRQ #### [facility] [address] [address] [address] Jerrod Bettencourt TYPE AND SCREENon 11-25-2021 TYPE AND SCREEN Negative Normal [facility] Comment on above: Performed By: #### T NS #### [facility] [address] [address] [address] Jerrod Bettencourt UA RANDOM W/MICROSCOPICon BACTERIA LARGE Abnormal NONE SEEN [facility] Comment on above: Performed By: #### U AMIC ####[facility] [address] [place], [place] [address]DrMoises Bettencourt Bilirubin Ql (U) Negative Normal NEGATIVE [facility] Comment on above: Performed By: #### U AMIC ####[facility] [address] [place], [place] [address]DrMoises Bettencourt CAST NONE SEEN Normal NONE [facility] Comment on above: Performed By: #### U AMIC ####[facility] [address] [place] [address]DrMoises Bettencourt Clarity (U) SL CLOUDY Abnormal CLEAR [facility] Comment on above: Performed By: #### U AMIC ####[facility] [address] [place] [address]Dr. Jerrod Bettencourt Color (U) LT. YELLOW Normal YELLOW [facility] Comment on above: Performed By: #### U AMIC ####[facility] [address] [place] [address]Dr. Jerrod Bettencourt Crystals LM Nom (Urine sed) NONE SEEN Normal NONE SEEN [facility] Comment on above: Performed By: #### U AMIC ####[facility] [address] [place] [address]Dr. Jerrod Bettencourt Epithelial cells LM Ql (Urine sed) MODERATE Abnormal NONE SEEN /RARE [facility] Comment on above: Performed By: #### U AMIC ####[facility] [address] [place] [address]Dr. Jerrod Bettencourt Glucose Ql (U) Negative Normal NEGATIVE [facility] Comment on above: Performed By: #### U AMIC ####[facility] [address] [place], [place] [address]Dr. Jerrod Bettencourt Hemoglobin Ql (U) TRACE-INTACT Abnormal NEGATIVE [facility] Comment on above: Performed By: #### U AMIC ####[facility] [address] [place], [place] [address]Dr. Jerrod Bettencourt Ketones Ql (U) Negative Normal NEGATIVE [facility] Comment on above: Performed By: #### U AMIC ####[facility] [address] [place], [place] [address]Dr. Jerrod Bettencourt LEUKOCYTES LARGE Abnormal NEGATIVE [facility] Comment on above: Performed By: #### U AMIC ####[facility] [address] [place], [place] [address]Dr. Jerrod Bettencourt MUCOUS NONE SEEN Normal NONE SEEN [facility] Comment on above: Performed By: #### U AMIC ####[facility] [address] [place], [place] [address]Dr. Jerrod Bettencourt Nitrite Ql (U) Positive Abnormal NEGATIVE [facility] Comment on above: Performed By: #### U AMIC ####[facility] [address] [place], [place] [address]Dr. Jerrod Bettencourt pH (U) 6.5 [pH] Normal 5-9 [facility] Comment on above: Performed By: #### U AMIC ####[facility] [address] [place], [place] [address]Dr. Jerrod Bettencourt RBC 2-5 Abnormal 0-2 [facility] Comment on above: Performed By: #### U AMIC ####[facility] [address] [place], [place] [address]Dr. Jerrod Bettencourt SPEC GRAVITY 1.020 Normal 1.005-<=1.025 [facility] Comment on above: Performed By: #### U AMIC ####[facility] [address] [place] [id number]. Jerrod Bettencourt UA PROTEIN Negative Normal NEGATIVE/ TRACE [facility] Comment on above: Performed By: #### U AMIC ####[facility] [address] [place] [phone]. Jerrod Bettencourt Urobilinogen Qn (U) 0.2 {Tuan'U}/dL Normal 0.2 - 1. 0 [facility] Comment on above: Performed By: #### U AMIC ####[facility] [address] [place] [address]Dr. Jerrod Bettencourt WBC 75-100 Abnormal NONE SEEN [facility] Comment on above: Performed By: #### U AMIC ####[facility] [address] [place] [phone]. Jerrod Bettencourt US PREG TVon 11-02-2021 US PREG TV EXAMINATION: US PREG TV HISTORY: Missed period COMPARISON: No relevant comparison available. FINDINGS: GESTATIONAL SAC: Present and normal appearing. POLE: Present and normal appearing. YOLK SAC: Present. CARDIAC: Present. UTERUS: Normal size and appearance. OVARIES: Right: Normal. Left: Normal. CERVIX: 4.1 cm in length and closed. CUL-DE-SAC: Normal. OTHER: None. AGE BY LMP: 8 weeks, 5 days AMAIRANI BY LMP: 06/09/2022 AGE BY US CRL: 8 weeks, 3 days AMAIRANI BY US CRL: 06/11/2022 IMPRESSION: 1. Single live intrauterine . Electronically authenticated by: MELITA MARTINEZ Date: 2021-11-02 16:19 Normal [facility] Vital Signs Date Time Vital Sign Value Performing Clinician Facility 10-18-2023 10:29-0500 Body height 167.6 cm Verona Decker MD [facility] 10-18-2023 10:29-0500 Body mass index (BMI) [Ratio] 29.05 kg/m2 Verona Decker MD Work Phone: [facility] [employer] [facility] 10-18-2023 10:29-0500 Body weight 81.65 kg Verona Decker MD Work Phone: [facility] [employer] [facility] 10-18-2023 10:29-0500 Diastolic blood pressure 66 mm[Hg] Verona Decker MD Work Phone: [facility] [employer] [facility] 10-18-2023 10:29-0500 Heart rate 84 /min Verona Decker MD Work Phone: [facility] [employer] 10-18-2023 10:29-0500 Systolic blood pressure 113 mm[Hg] Verona Decker MD Work Phone: [facility] 01-11-2023 15:36-0400 Body temperature 97.88 [degF] Yash Medina [facility] 01-11-2023 15:36-0400 Diastolic blood pressure 81 mm[Hg] Yash Medina [facility] 01-11-2023 15:36-0400 Heart rate 79 /min Yash Medina [facility] 01-11-2023 15:36-0400 Respiratory rate 18 /min Yash Medina [facility] 01-11-2023 15:36-0400 SaO2% (BldA) [Mass fraction] 99 % Yash Medina [facility] 01-11-2023 15:36-0400 Systolic blood pressure 117 mm[Hg] Yash Medina [facility] 12-07-2022 23:00-0400 Diastolic blood pressure 75 mm[Hg] Yash Adam [facility] 12-07-2022 23:00-0400 Heart rate 74 /min Yash Medina [facility] 12-07-2022 23:00-0400 Mean blood pressure 90 mm[Hg] Yash Adam [facility] 12-07-2022 23:00-0400 Respiratory rate 16 /min Yash Adam [facility] 12-07-2022 23:00-0400 SaO2% (BldA) [Mass fraction] 98 % Yash Adam [facility] 12-07-2022 23:00-0400 Systolic blood pressure 120 mm[Hg] Yash Adam [facility] 12-07-2022 22:00-0400 Diastolic blood pressure 74 mm[Hg] Yash Adam [facility] 12-07-2022 22:00-0400 Heart rate 92 /min Yash Adam [facility] 12-07-2022 22:00-0400 Mean blood pressure 88 mm[Hg] Yash Adam [facility] 12-07-2022 22:00-0400 Systolic blood pressure 115 mm[Hg] Yash Adam [facility] 12-07-2022 21:30-0400 Body temperature 97.7 [degF] Yash Adam [facility] 12-07-2022 21:30-0400 Diastolic blood pressure 87 mm[Hg] Yash Adam [facility] 12-07-2022 21:30-0400 Heart rate 89 /min Yash Adam [facility] 12-07-2022 21:30-0400 Respiratory rate 20 /min Yash Adam [facility] 12-07-2022 21:30-0400 SaO2% (BldA) [Mass fraction] 97 % Yash Adam [facility] 12-07-2022 21:30-0400 Systolic blood pressure 139 mm[Hg] Yash Medina [facility] 01-19-2022 03:11-0400 Body weight 74.[address] NONE LISTED REQUEST [facility] Comment on above: Performed By: #### AFPMAT ####[facility] [address] [place], [place] [address]Se. Jerrod Bettencourt Encounters Encounter Date Encounter Type Care Provider Facility Start: 10-19-2023 Orders Only Edward Ogden SPORTS PHYSICIAN [facility] Comment on above: Abnormal thyroid fun ction test (Primary Dx); Pyelectasis of fetus on ultrasound Start: 10-18-2023 End: 10-19-2023 ambulatory VERONA DECKER [facility] Start: 10-18-2023 End: [facility]: 10-18-[facility]23 End: 10-18-2023 Office consultation new/estab patient 60 min Verona Decker MD Work Phone: [facility] Comment on above: 20 weeks gestation o f (Primary Dx); Abnormal thyroid function test; Bipolar affective disorder, remission status unspecified ([facility]); Depression affecting ; Pyelectasis of fetus on ultrasound Start: 09-26-2023 End: 09-26-2023 ambulatory SLOANE BRITT Not Available Start: 09-24-2023 Chart abstracting Verona Decker MD Work Phone: [facility] Start: 08-28-2023 End: 08-28-2023 ambulatory JOHN PRASHANTH Not Available Start: 08-09-2023 End: 08-09-2023 ambulatory JOHN PRASHANTH Not Available Start: 08-03-2023 End: 08-03-2023 ambulatory JOHN PRASHANTH Not Available Start: 03-19-2023 End: 03-19-2023 ambulatory Angus Benedict Facility:[facility] Start: 03-05-2023 End: 03-05-2023 ambulatory Angus Jak Facility:[facility] Start: 03-05-2023 End: 03-05-2023 ambulatory MD Mahdavi Bustamante [facility] Work Phone: Start: 03-05-2023 End: 03-05-2023 Patient encounter procedure MD Madhavi Bustamante [id number] Work Phone: Start: 01-11-2023 End: 01-11-2023 Emergency department patient visit Yash Medina Facility:[facility] Start: 01-11-2023 End: 01-11-2023 Emergency department patient visit Yash Medina [facility] Start: 12-07-2022 End: 12-08-2022 Emergency department patient visit Yash Medina Facility:[facility] Start: 12-07-2022 End: 12-07-2022 Emergency department patient visit Yash Medina [facility] Start: 12-04-2022 End: 12-05-2022 ambulatory Madhavi Bustamante Facility:[facility] Start: 12-04-2022 End: 12-04-2022 Patient encounter procedure Madhavi Bustamante [facility] Start: 10-24-2022 End: 10-24-[address] JOHN WILSON . Facility: Start: 06-14-[address] NONE LISTED REQUEST Facility: Start: 06-07-2022 End: 06-07-[address] NONE LISTED REQUEST Facility: Start: 06-02-2022 End: 06-05-2022 Evaluation and management of inpatient DR JOHN WILSON . Facility: Start: 05-31-2022 End: 05-31-[address] JOHN WILSON . Facility: Start: 05-26-2022 Evaluation and manag ement of inpatient DR JOHN WILSON . Facility:[facility] Start: 05-24-2022 End: 05-24-[address] JARED MENDOZA . Facility:[facility] Start: 05-24-2022 End: 05-25-[address] JOHN WILSON . Facility:[facility] Start: 05-17-2022 End: 05-17-[address] JARED MENDOZA . Facility:[facility] Start: 05-16-2022 End: 05-16-[address] JOHN WILSON . Facility:[facility] Start: 05-10-2022 End: 05-10-[address] JARED MENDOZA . Facility:[facility] Start: 05-09-2022 End: 05-10-[address] NONE LISTED REQUEST Facility:[facility] Start: 05-02-2022 End: 05-02-[address] JHON WILSON . Facility:[facility] Start: 04-26-2022 End: 04-26-[address] NONE LISTED REQUEST Facility:[facility] Start: 04-19-2022 End: 04-19-[address] NONE LISTED REQUEST Facility:[facility] Start: 04-11-2022 End: 04-12-[address] NONE LISTED REQUEST Facility:[facility] Start: 03-22-2022 End: 03-22-[address] NONE LISTED REQUEST Facility:[facility] Start: 03-21-2022 End: 03-22-[address] NONE LISTED REQUEST Facility:[facility] Start: 02-20-2022 End: 02-20-[address] NONE LISTED REQUEST Facility:[facility] Start: 01-23-2022 End: 01-24-[address] JOHN WILSON . Facility:[facility] Start: 01-16-2022 End: 01-17-[address] NONE LISTED REQUEST Facility:[facility] Start: 12-22-2021 End: 12-22-[address] JOHN WILSON . Facility:[facility] Start: 11-25-2021 End: 11-26-[address] JOHN WILSON . Facility:[facility] Start: 11-24-2021 End: 11-24-[address] JOHN WILSON . Facility:[facility] Start: 11-02-2021 End: 11-03-[address] JOHN WILSON . Facility: Procedures Date Procedure Procedure Detail Performing Clinician Start: 08-09-2023 FREE CELL DNA (NON-[facility]) Not In System Ref Prov Start: 06-03-2022 Extraction of Produc ts of Conception, Low Cervical, Open Approach NONE LISTED REQUEST Start: 06-02-2022 Drainage of Amniotic Fluid, Therapeutic from Products of Conception, Via Natural or Artificial Opening NONE LISTED REQUEST Start: 06-02-2022 Introduction of Horm one into Female Reproductive, Via Natural or Artificial Opening NONE LISTED REQUEST Start: 09-03-2013 ACL and Meniscus Rep air Right Leg Madhavi Bustamante Plan of Treatment Date Care Activity Detail Author Start: 10-19-2024 End: 10-19-2024 US MFM with or without consult US MFM with or without consult Imaging Routine Abnormal thyroid function test Pyelectasis of fetus on ultrasound Expected: 10/19/2024 (Approximate), Expires: 10/19/2024 [employer] Work Phone: Comment on above: Expected: 10/19/2024 (Approximate), Expires: 10/19/2024 Start: 10-18-2024 Adult BMI Screening Adult BMI Screen ing [facility] Start: 10-18-2024 Tobacco Screening Tobacco Screening [facility] Start: 11-16-2023 End: 11-16-2023 Patient encounter procedure 11/16/2023 11:00 AM EDT Appointment [facility] [address] [place] [id number] [facility] Start: 10-18-2023 End: 10-18-2023 Patient encounter procedure 10/18/2023 10:30 AM EST Office Visit [facility] at [facility] [address] [place] [id number] Verona Decker MD [address] [place] [address] [facility] Start: 10-18-2023 End: 10-18-2023 Patient encounter procedure 10/18/2023 9:15 AM EST Appointment [facility] [address] [place] [address] [facility] Start: 05-04-2023 Influenza vaccination Influenza Vacc ine [facility] Start: 2021 Screening for malign ant neoplasm of cervix Pap Smear [facility] Start: 2018 Adult BMI Follow Up Plan Adult BMI Follow Up Plan [facility] Start: 2018 Adult BMI Screening Adult BMI Screen ing [facility] Start: 2012 Depression Screening Depression Scre ening [facility] Start: 2012 Tobacco Screening Tobacco Screening [facility] Start: 2011 DTaP,Tdap and Td Vaccines (6 - Tdap) DTaP,Tdap and Td Vaccines (6 - Tdap) [facility] Start: 2000 Screening for Chlamy shreyas trachomatis Chlamydia Screening [facility] Payers Date Payer Category Payer Self-pay 2022 Unknown [id number] 2019 Private Health Insurance 2000 Unknown [id number] 2.16.84 0.1.877496.3.579.2.593 2000 Unknown [id number] 2.16.84 0.1.250581.3.579.2.593 2000 Unknown [id number] 2.16.84 0.1.546696.3.579.2.593 2000 Unknown [id number] 2.16.84 0.1.626814.3.579.2.593 2000 Unknown [id number] 2.16.84 0.1.489487.3.579.2.593 2000 Unknown [id number] 2.16.84 0.1.327069.3.579.2.593 2000 Unknown [id number] 2.16.84 0.1.821765.3.579.2.593 2000 Unknown [id number] 2.16.84 0.1.807003.3.579.2.593 2000 Unknown [id number] 2.16.84 0.1.786124.3.579.2.593 2000 Unknown [id number] 2.16.84 0.1.933845.3.579.2.593 2000 Unknown [id number] 2.16.84 0.1.884896.3.579.2.593 2000 Unknown [id number] 2.16.84 0.1.302791.3.579.2.593 2000 Unknown [id number] 2.16.84 0.1.122224.3.579.2.593 2000 Unknown [id number] 2.16.84 0.1.627942.3.579.2.593 2000 Unknown [id number] 2.16.84 0.1.580439.3.579.2.593 2000 Unknown [id number] 2.16.84 0.1.922366.3.579.2.593 2000 Unknown [id number] 2.16.84 0.1.291831.3.579.2.593 2000 Unknown [id number] 2.16.84 0.1.111782.3.579.2.593 2000 Unknown [id number] 2.16.84 0.1.313540.3.579.2.593 2000 Unknown [id number] 2.16.84 0.1.282673.3.579.2.593 2000 Unknown [id number] 2.16.84 0.1.678112.3.579.2.593 2000 Unknown [id number] 2.16.84 0.1.112159.3.579.2.593 2000 Unknown [id number] 2.16.84 0.1.292358.3.579.2.593 2000 Unknown [id number] 2.16.84 0.1.881243.3.579.2.593 2000 Unknown [id number] 2.16.84 0.1.960758.3.579.2.593 2000 Unknown [id number] 2.16.84 0.1.590857.3.579.2.593 2000 Unknown [id number] 2.16.8 40.1.808397.3.579.2.727 2000 Unknown [id number] 2.16.8 40.1.325084.3.579.2.727 2000 Unknown [id number] 2.16.8 40.1.061949.3.579.2.727 2000 Unknown [id number] 2.16.84 0.1.014176.3.579.2.1259 2000 Unknown [id number] 2.16.840 .1.145945.3.579.2.1259 2000 Unknown [id number] 2.16.840 .1.291724.3.579.2.1259 2000 Unknown [id number] 2.16.840 .1.460436.3.579.2.1259 2000 Unknown [id number] 2.16.8 40.1.228438.3.579.2.1286 2000 Unknown [id number] 2.16.8 40.1.409099.3.579.2.1286 2000 Unknown [id number] 2.16.8 40.1.982815.3.579.2.1286 1959 Medicaid [id number] 1959 Private Health Insurance [id number] Self-pay [id number] Unknown [id number] 2.16.8 40.1.702113.3.579.2.531 Unknown [id number] 2.16.8 40.1.229752.3.579.2.531 Social History Date Type Detail Facility [facility] Comment on above: denies Tobacco smoking status No Smokin g Status Entered [facility] Start: 09-24-2023 End: 10-18-2023 Sex Assigned At Female [facility] Start: 03-05-2023 End: 09-24-2023 Tobacco smoking status NHIS Never smoked tobacco (finding) [facility] Start: 2000 Sex Assigned At Female F [facility] Start: 09-24-2023 Tobacco use and exposure Smokeless tobacco non-user [facility] Start: 09-26-2023 End: 10-18-2023 Alcohol intake Ex-drinker (finding) [facility] Start: 09-24-2023 End: 10-18-2023 History of Social function [facility] [employer] [facility] Start: 06-14-2023 [facility] Start: 2000 Sex Assigned At Not on file P [employer] [facility] Within the past 12 months we worried whether our food would run out before we got money to buy more. Never True [facility] Functional Status Date Assessment Result Facility 01-11-2023 Functional Status N/A [facility] 12-07-2022 Functional Status N/A [facility] Clinical Notes 06-02-2022 to 10-18-2023 Verona Decker MD - 10/18/2023 10:30 AM Angie Ogden CMA - 10/18/2023 10:30 AM EST Note Date & Type Note Facility 10-18-2023 History of Presen t illness Narrative REASON FOR CONSULTATION: ?thyroid disorder HISTORY OF PRESENT ILLNESS: Darline Falcon is a pleasant 23 y.o. at 20w0d due on Estimated Date of Delivery: 03/06/24. complicated by: Bipolar disorder with depression ; therapist x2/week Bilateral UTD, 4.1 and 4.0mm History of c/section x1 08/09/23 TSH 0.025 08/31/23 TSH 0.279, free T4 1.08 With regards to bipolar disorder with depression and anxiety, patient follows with a therapist 2 times a week. She has previously been on antipsychotic medication but has been off since 2019. She was recently prescribed Celexa and Seroquel as needed by Dr. Mullins. Patient has not been taking either of those medications. Today, the patient is doing well. She denies headaches, vision changes, nausea, vomiting, right upper quadrant or epigastric pain, SOB or chest pain. She denies contractions, vaginal bleeding, leaking of fluid. She reports good movement. Aneuploidy screening: Low risk cell free DNA Carrier screening: Baby boy name: Lai PAST OBSTETRICAL HISTORY: OB History Para Term AB Living 2 1 1 SAB IAB Ectopic Multiple Live Births 1 # Outcome Date GA Lbr Ray/2nd Weight Sex Delivery Anes PTL Lv 2 Current 1 Para 06/03/22 3.657 kg M CS-LTranv JULIANNE MEDICAL HISTORY: Past Medical History: Diagnosis Date Anxiety Bipolar disorder ([facility]) Chronic cholecystitis Depression SURGICAL HISTORY: Past Surgical History: Procedure Laterality Date ANTERIOR CRUCIATE LIGAMENT REPAIR SECTION CHOLECYSTECTOMY ALLERGIES: No Known Allergies CURRENT MEDICATIONS: Current Outpatient Medications: citalopram (CeleXA) 20 mg tablet, Take 1 tablet (20 mg total) by mouth in the morning., Disp: , Rfl: hydrOXYzine (ATARAX) 25 mg tablet, Take 1 tablet (25 mg total) by mouth 3 (three) times a day as needed for itching., Disp: , Rfl: ondansetron ODT (ZOFRAN ODT) 4 mg disintegrating tablet, Dissolve 1 tablet (4 mg total) on tongue every 8 (eight) hours as needed for nausea or vomiting., Disp: , Rfl: QUEtiapine (SEROquel) 25 mg tablet, Take 1 tablet (25 mg total) by mouth nightly., Disp: , Rfl: REVIEW OF SYSTEMS: Head and Neck: Negative for any dizziness and headaches. Cardiovascular and Respiratory System: Denies any chest pain, shortness of breath, and coughing. Abdominal and System: Denies any abdominal pain, nausea, vomiting, vaginal bleeding, and vaginal discharge FAMILY/GENETIC HISTORY: No family history of VTE, cardiac defects and mental retardation. SOCIAL HISTORY:Patient denies tobacco use, alcohol use, or drug use. RECENT HOSPITALIZATION: REVIEW OF TESTS AND ULTRASOUND REPORTS: Referral records and [facility] chart were reviewed Pertinent Ultrasound findings are see formal ultrasound report. HABITS: Patient activity no restrictions, diet no restrictions PHYSICAL EXAMINATION: BP 113/66 Pulse 84 Ht 167.6 cm (5' 6 ) Wt 81.6 kg (180 lb) LMP 05/31/2023 BMI 29.05 kg/m Well-appearing in no distress. Respirations not labored, speaking comfortably in full sentences Gravid abdomen OVERALL ASSESSMENT -Darline Falcon is a pleasant 23 y.o. at 20w0d -expect normal thyroid function testing, subclinical hyperthyroidism -Bipolar disorder with depression ; therapist x2/week -Bilateral UTD, 4.1 and 4.0mm -History of c/section x1 COUNSELING Thyroid function in -induced physiological changes to the thyroid are reflected an altered thyroid function tests. An increase in thyroid binding globulin results in increases in total T4 and T3 concentrations, when compared to non women. Total T4 and total T3 values increase by 50% during the first half of , plateuing after 16 week's gestation. Prior to that time, there is a progressive increase early in the 2nd trimester although the amount is not as quantifiable until after 16 weeks gestation. Free T3 and free T4 levels remain unchanged in . In addition hCG levels, especially in early , result in a decrease in first trimester TSH concentrations. hCG and TSH share an alpha chain and have considerable similarity in the beta chain, resulting in hCG-induced stimuation of TSH receptor and thus decreased TSH concentrations. This transient, usually subclinical, hyperthyroidism of the 1st trimester is considered a normal physiological finding. In particular, in pregnancies complicated by hyperemesis and/or multi gestation, and no underlying thyroid disease history, thyroid function studies generally should not be assessed duties physiological changes. A sizable minority of patients with hyperemesis meet criteria for hyperthyroidism. In these patients, thyroid function studies almost always normalize in the second tri Bipolar disorder I reviewed with the patient that stability of mood for 6 to 24 months prior to is predictive of a lower risk of recurrent mood episodes during and . She has been stable for over 2 years. Bipolar affective disorder in is associated with an increased risk for recurrent mood episodes during and especially in the period such as depression and psychosis. Treatment with psychotropics has been shown to decrease the frequency of recurrence of these episodes. Medications typically used in for mood stability and bipolar disorder include Lamictal (first-line medication), quetiapine (second-line agent an atypical antipsychotic). She has not currently on any medications though has been prescribed quetiapine and citalopram. Quetiapine is a second-line agent and as an atypical antipsychotic has a relatively low placental passage rate compared to other atypical antipsychotics. Most studies looking at risk of congenital anomalies in patients with bipolar affective disorder do not show an increased risk compared to the general population, i.e., 2% to 5% percent risk for defects. Some studies looking at quetiapine specifically have suggested a mild increase in the risk of certain anomalies such as cardiovascular malformations, though the absolute risk is very low. I did recommend a detailed ultrasound with echocardiogram. Quetiapine has also been associated in some studies with growth disorders ranging from large for gestational age to small for gestational age. Patients who are with bipolar affective disorder have slightly higher risk for and delivery. The personal risk of delivery slow given normal cervical length of 5.1 cm. She should maintain close relationships with her psychiatrist and reestablish care with her therapist, who will aid in monitoring her mood stabilizing serum concentrations in the late 2nd and 3rd trimester. Urinary Tract Dilation (UTD) The patient was counseled about the limitations of ultrasound, with up to two-thirds of all anomalies failed to be identified using this modality. Her US today is reassuring overall, but mild (A1) urinary tract dilation (UTD) was identified. The patient was counseled that UTD represents dilation of the renal pelvis and may be unilateral or bilateral. This finding is identified in approximately 2-3% of ultrasounds and is more common in males than females. It can be a normal variant or can reflect a structural renal abnormality. We discussed the association between UTD and aneuploidy (including Trisomy 21). In the absence of other sonographic findings, a positive family history, advanced maternal age or an abnormal serum screen, the likelihood of Trisomy 21 with isolated renal pelvis dilatation is <~1%. She has had aneuploidy screening with cell free DNA, low risk. She is aware that definitive diagnosis of chromosomal abnormalities can only be made using invasive techniques such as amniocentesis, which she declines. Otherwise prenatally diagnosed cases of UTD may resolve prenatally/neonatally, remain stable, or progress to more significant renal involvement (including hydronephrosis and renal failure). A1 UTD represents a normal variant 90% of the time, but we discussed the possibility of true urologic pathophysiology and the potential need for urologic evaluation and treatment (including the possible need for surgical management). The prognosis is excellent even in this setting. A follow-up ultrasound at 32 weeks to reevaluate the kidneys is recommended. If dilation is evident at that time, serial ultrasound and evaluation would be indicated. 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, transient physiological finding; repeat TSH/free T4 ordered today Continue with therapist twice weekly Monitored for mood stability, including depression Discussed medical management options including Seroquel and Celexa in , currently patient not on any medications though prescribed Patient to return in 4 weeks for attempted completion of level 2 anatomy ultrasound, scheduled through [facility] Patient to return in 12 weeks at 32 weeks' gestation for re-evaluation of bilateral urinary tract dilation, scheduled through [facility] DISPOSITION: At this point the patient is in complete care of her automat watcher. Patient does have ultrasound scheduled with us. Thank you for allowing me to participate in the care of Darline Bloomman. If there any questions please do not hesitate to contact us. Total time spent was 42 minutes: Preparing to see the patient (e.g., review of tests) Obtaining and/or reviewing separately obtained history Performing a medically appropriate examination and/or evaluation Counseling and educating the patient/family/caregiver Ordering medications, tests, or procedures Referring and communicating with other health complex care nurse (not separately reported) Documenting clinical information in the electronic or other health record Verona Decker MD Maternal- Medicine [place] [id number] Includes [facility] [address] [place] [address] [facility], the CDC, and other organizations representing maternal and public health professionals recommend that , , and lactating people and those considering receive the COVID-19 vaccination. Vaccination is the best method to reduce maternal and complications of SARS-CoV-2 infection. This document was created with [employer] technology. Though I make every effort to review the dictation as it is transcribed, on occasion the spoken word can be misinterpreted by the technology leading to inappropriate words, phrases, or sentences. This note is addressed to the requesting provider as a consultation for clinical guidance. Specific medical abbreviations are occasionally used and those are generally approved by the [place]?Board of?Obstetrics and?Gynecology?as well as?Gayle turner abbreviations. The above plan of care was based solely on the diagnoses for which a consultation was requested. ?More frequent testing may be indicated based on her other medical/obstetrical conditions. The management of other or medical conditions is beyond the scope of requested consultation and will continue to be followed by the primary automat watcher or primary care provider. Note to patient: The Century Cures Act makes medical notes like these available to patients in the interest of transparency. However, be advised this is a medical document. It is intended as peer to peer communication. It is written in medical language and may contain abbreviations or verbiage that are unfamiliar. It may appear blunt or direct. Medical documents are intended to carry relevant information, facts as evident, and the clinical opinion of the practitioner. Headache/epigastric pain/blurry vision/swelling? No Cramping/contractions? No Abnormal vaginal discharge? No Spotting/vaginal bleeding? No Loss of fluid like your water may have broken? No Cats in the home? Yes, Do you change the litter box? No Flu vaccine? No Genetic testing done this here or other office? yes, low risk, male Have you been seen here at [facility] in a previous ? No Recent ER visits or hospitalizations? No Bring blood sugar log or meter with you today? (Please bring them with you for every visit at [facility]) n/a Traveled outside the country in the past 6 month no Any concerns that you would like me to mention to the provider today? No documented in this encounter [facility] 01-11-2023 Hospital Discharg e instructions Patient Education 01/11/2023 17:05:20 Finger Sprain, Adult Finger Sprain, Adult A finger sprain is a tear or stretch in a ligament in a finger. Ligaments are tissues that connect bones to each other. What are the causes? Finger sprains happen when something makes the bones in the hand move in an abnormal way. They are often caused by a fall or an accident. What increases the risk? This condition is more likely to develop in people who: Participate in sports in which it is easy to fall, such as skiing. Play sports that involve catching an object, such as basketball. Have poor strength and flexibility. What are the signs or symptoms? Symptoms of this condition include: Pain or tenderness in the finger. Swelling in the finger. A bluish appearance to the finger. Bruising. Difficulty bending and flexing the finger. How is this diagnosed? This condition is diagnosed with an exam of your finger. Your health care provider may take an X-ray to see if any bones are broken or dislocated. How is this treated? Treatment for this condition depends on how severe the sprain is. It may involve: Preventing the finger from moving for a period of time. Your finger may be wrapped in a bandage (dressing) or splint, or your finger may be taped to the fingers beside it (talisha taping). Medicines for pain. Exercises to strengthen the finger. These may be recommended when the finger has healed. Surgery to reconnect the ligament to a bone. This may be done if the ligament was completely torn. Follow these instructions at home: If you have a removable splint: Wear the splint as told by your health care provider. Remove it only as told by your health care provider. Check the skin around the splint every day. Tell your health care provider about any concerns. Loosen the splint if your fingers tingle, become numb, or turn cold and blue. Keep the splint clean. If the splint is not waterproof: ?Do not let it get wet. ?Cover it with a watertight covering when you take a bath or shower. Managing pain, stiffness, and swelling If directed, put ice on the injured area. To do this: ?If you have a removable splint, remove it as told by your health care provider. ?Put ice in a plastic bag. ?Place a towel between your skin and the bag. ?Leave the ice on for 20 minutes, 2 3 times a day. ?Remove the ice if your skin turns bright red. This is very important. If you cannot feel pain, heat, or cold, you have a greater risk of damage to the area. Move your fingers often to reduce stiffness and swelling. Raise (elevate) the injured area above the level of your heart while you are sitting or lying down. Medicines Take rhcj-fxu-lbmnrew and prescription medicines only as told by your health care provider. Ask your health care provider if the medicine prescribed to you requires you to avoid driving or using machinery. General instructions Keep any dressings dry until your health care provider says they can be removed. If your fingers are talisha taped, replace your talisha taping as told by your health care provider. Do exercises as told by your health care provider or physical therapist. Do not wear rings on your injured finger. Keep all follow-up visits. This is important. Contact a health care provider if: Your pain is not controlled with medicine. Your bruising or swelling gets worse. Your splint is damaged. You develop a fever. Get help right away if: Your finger is numb or blue. Your finger feels colder to the touch than normal. Summary A finger sprain is a tear or stretch in a ligament in a finger. Ligaments are tissues that connect bones to each other. Finger sprains happen when something makes the bones in the hand move in an abnormal way. They are often caused by a fall or accident. This condition is diagnosed with an exam of your finger. Your health care provider may do an X-ray to see if any bones are broken or dislocated. Treatment for this condition depends on how severe the sprain is. Treatment may involve talisha taping or wearing a splint. Surgery to reconnect the ligament to a bone may be needed if the ligament was torn all the way. This information is not intended to replace advice given to you by your health care provider. Make sure you discuss any questions you have with your health care provider. Document Revised: 07/13/2021 Document Reviewed: 07/13/2021 [employer] Patient Education 2022 [employer]. 01/11/2023 17:05:20 Contusion Contusion A contusion is a deep bruise. Contusions are the result of a blunt injury to tissues and muscle fibers under the skin. The injury causes bleeding under the skin. The skin overlying the contusion may turn blue, purple, or yellow. Minor injuries will give you a painless contusion, but more severe injuries cause contusions that may stay painful and swollen for a few weeks. Follow these instructions at home: Pay attention to any changes in your symptoms. Let your health care provider know about them. Take these actions to relieve your pain. Managing pain, stiffness, and swelling Use resting, icing, applying pressure (compression), and raising (elevating) the injured area. This is often called the RICE strategy. ?Rest the injured area. Return to your normal activities as told by your health care provider. Ask your health care provider what activities are safe for you. ?If directed, put ice on the injured area: ?Put ice in a plastic bag. ?Place a towel between your skin and the bag. ?Leave the ice on for 20 minutes, 2 3 times per day. ?If directed, apply light compression to the injured area using an elastic bandage. Make sure the bandage is not wrapped too tightly. Remove and reapply the bandage as directed by your health care provider. ?If possible, raise (elevate) the injured area above the level of your heart while you are sitting or lying down. General instructions Take uxiu-dcb-atbpfkz and prescription medicines only as told by your health care provider. Keep all follow-up visits as told by your health care provider. This is important. Contact a health care provider if: Your symptoms do not improve after several days of treatment. Your symptoms get worse. You have difficulty moving the injured area. Get help right away if: You have severe pain. You have numbness in a hand or foot. Your hand or foot turns pale or cold. Summary A contusion is a deep bruise. Contusions are the result of a blunt injury to tissues and muscle fibers under the skin. It is treated with rest, ice, compression, and elevation. You may be given ihqa-vma-xkrudtp medicines for pain. Contact a health care provider if your symptoms do not improve, or get worse. Get help right away if you have severe pain, have numbness, or the area turns pale or cold. This information is not intended to replace advice given to you by your health care provider. Make sure you discuss any questions you have with your health care provider. Document Revised: 07/04/2022 Document Reviewed: 06/15/2022 [employer] Patient Education 2022 [employer]. Follow Up Care 01/11/2023 15:31:57 With:Madhavi Bustamante Address: [address] [place] [address]- Business (1) When:01/14/2023 16:47:05 [facility] 01-11-2023 Evaluation + Plan note Extrac yolanda from: Title:ED Note Author:Derek Salcido PA-C te:01/11/23 Finger sprain (S63.619A: Uns pecified sprain of unspecified finger, initial encounter) Hand contusion (S60.229A: Contusion of unspecified hand, initial encounter) Orders: Finger Splint Application XR Hand 3+ Views Left [facility]04-07-2023 Hospital Discharge instructions Patient Education 12/07/2022 23:48:57 Nausea and Vomiting, Adult Nausea and Vomiting, Adult Nausea is the feeling that you have an upset stomach or that you are about to vomit. Vomiting is when stomach contents are thrown up and out of the mouth as a result of nausea. Vomiting can make you feel weak and cause you to become dehydrated. Dehydration can make you feel tired and thirsty, cause you to have a dry mouth, and decrease how often you urinate. Older adults and people with other diseases or a weak disease-fighting system (immune system) are at higher risk for dehydration. It is important to treat your nausea and vomiting as told by your health care provider. Follow these instructions at home: Watch your symptoms for any changes. Tell your health care provider about them. Follow these instructions to care for yourself at home. Eating and drinking Take an oral rehydration solution (ORS). This is a drink that is sold at pharmacies and retail stores. Drink clear fluids slowly and in small amounts as you are able. Clear fluids include water, ice chips, low-calorie sports drinks, and fruit juice that has water added (diluted fruit juice). Eat bland, oktq-tq-wkzaze foods in small amounts as you are able. These foods include bananas, applesauce, rice, lean meats, toast, and crackers. Avoid fluids that contain a lot of sugar or caffeine, such as energy drinks, sports drinks, and soda. Avoid alcohol. Avoid spicy or fatty foods. General instructions Take anub-dpb-vdmssdg and prescription medicines only as told by your health care provider. Drink enough fluid to keep your urine pale yellow. Wash your hands often using soap and water. If soap and water are not available, use hand local hazmat driver. Make sure that all people in your household wash their hands well and often. Rest at home while you recover. Watch your condition for any changes. Breathe slowly and deeply when you feel nauseated. Keep all follow-up visits as told by your health care provider. This is important. Contact a health care provider if: Your symptoms get worse. You have new symptoms. You have a fever. You cannot drink fluids without vomiting. Your nausea does not go away after 2 days. You feel light-headed or dizzy. You have a headache. You have muscle cramps. You have a rash. You have pain while urinating. Get help right away if: You have pain in your chest, neck, arm, or jaw. You feel extremely weak or you faint. You have persistent vomiting. You have vomit that is bright red or looks like black coffee grounds. You have bloody or black stools or stools that look like tar. You have a severe headache, a stiff neck, or both. You have severe pain, cramping, or bloating in your abdomen. You have difficulty breathing, or you are breathing very quickly. Your heart is beating very quickly. Your skin feels cold and clammy. You feel confused. You have signs of dehydration, such as: ?Dark urine, very little urine, or no urine. ?Cracked lips. ?Dry mouth. ?Sunken eyes. ?Sleepiness. ?Weakness. These symptoms may represent a serious problem that is an emergency. Do not wait to see if the symptoms will go away. Get medical help right away. Call your local emergency services (911 in the [place] Do not drive yourself to the hospital. Summary Nausea is the feeling that you have an upset stomach or that you are about to vomit. As nausea getsworse, it can lead to vomiting. Vomiting can make you feel weak and cause you to become dehydrated. Follow instructions from your health care provider about eating and drinking to prevent dehydration. Take spnk-nuo-qicalmm and prescription medicines only as told by your health care provider. Contact your health care provider if your symptoms get worse, or you have new symptoms. Keep all follow-up visits as told by your health care provider. This is important. This information is not intended to replace advice given to you by your health care provider. Make sure you discuss any questions you have with your health care provider. Document Released: 08/20/2006 Document Revised: 12/12/2019 Document Reviewed: 01/28/2019 [employer] Patient Education 2020 [employer]. 12/07/2022 23:48:57 Cholelithiasis Cholelithiasis Cholelithiasis is a form of gallbladder disease in which gallstones form in the gallbladder. The gallbladder is an organ that stores bile. Bile is made in the liver, and it helps to digest fats. Gallstones begin as small crystals and slowly grow into stones. They may cause no symptoms until the gallbladder tightens (contracts) and a gallstone is blocking the duct (gallbladder attack), which can cause pain. Cholelithiasis is also referred to as gallstones. There are two main types of gallstones: Cholesterol stones. These are made of hardened cholesterol and are usually yellow-green in color. They are the most common type of gallstone. Cholesterol is a white, waxy, fat-like substance that is made in the liver. Pigment stones. These are dark in color and are made of a red-yellow substance that forms when hemoglobin from red blood cells breaks down (bilirubin). What are the causes? This condition may be caused by an imbalance in the substances that bile is made of. This can happen if the bile: Has too much bilirubin. Has too much cholesterol. Does not have enough bile salts. These salts help the body absorb and digest fats. In some cases, this condition can also be caused by the gallbladder not emptying completely or often enough. What increases the risk? The following factors may make you more likely to develop this condition: Being female. Having multiple pregnancies. Health care providers sometimes advise removing diseased gallbladders before future pregnancies. Eating a diet that is heavy in fried foods, fat, and refined carbohydrates, like white bread and white rice. Being obese. Being older than age 40. Prolonged use of medicines that contain female hormones (estrogen). Having diabetes mellitus. Rapidly losing weight. Having a family history of gallstones. Being of or [place] descent. Having an intestinal disease such as Crohn disease. Having metabolic syndrome. Having cirrhosis. Having severe types of anemia such as sickle cell anemia. What are the signs or symptoms? In most cases, there are no symptoms. These are known as silent gallstones. If a gallstone blocks the bile ducts, it can cause a gallbladder attack. The main symptom of a gallbladder attack is suddenpain in the upper right abdomen. The pain usually comes at night or after eating a large meal. The pain can last for one or several hours and can spread to the right shoulder or chest. If the bile duct is blocked for more than a few hours, it can cause infection or inflammation of the gallbladder, liver, or pancreas, which may cause: Nausea. Vomiting. Abdominal pain that lasts for 5 hours or more. Fever or chills. Yellowing of the skin or the whites of the eyes (jaundice). Dark urine. Light-colored stools. How is this diagnosed? This condition may be diagnosed based on: A physical exam. Your medical history. An ultrasound of your gallbladder. CT scan. MRI. Blood tests to check for signs of infection or inflammation. A scan of your gallbladder and bile ducts (biliary system) using nonharmful radioactive material and special cameras that can see the radioactive material (cholescintigram). This test checks to see how your gallbladder contracts and whether bile ducts are blocked. Inserting a small tube with a camera on the end (endoscope) through your mouth to inspect bile ducts and check for blockages (endoscopic retrograde cholangiopancreatogram). How is this treated? Treatment for gallstones depends on the severity of the condition. Silent gallstones do not need treatment. If the gallstones cause a gallbladder attack or other symptoms, treatment may be required. Options for treatment include: Surgery to remove the gallbladder (cholecystectomy). This is the most common treatment. Medicines to dissolve gallstones. These are most effective at treating small gallstones. You may need to take medicines for up to 6 12 months. Shock wave treatment (extracorporeal biliary lithotripsy). In this treatment, an ultrasound machinesends shock waves to the gallbladder to break gallstones into smaller pieces. These pieces can thenbe passed into the intestines or be dissolved by medicine. This is rarely used. Removing gallstones through endoscopic retrograde cholangiopancreatogram. A small basket can be attached to the endoscope and used to capture and remove gallstones. Follow these instructions at home: Take nkyc-ogb-zrtkcbz and prescription medicines only as told by your health care provider. Maintain a healthy weight and follow a healthy diet. This includes: ?Reducing fatty foods, such as fried food. ?Reducing refined carbohydrates, like white bread and white rice. ?Increasing fiber. Aim for foods like almonds, fruit, and beans. Keep all follow-up visits as told by your health care provider. This is important. Contact a health care provider if: You think you have had a gallbladder attack. You have been diagnosed with silent gallstones and you develop abdominal pain or indigestion. Get help right away if: You have pain from a gallbladder attack that lasts for more than 2 hours. You have abdominal pain that lasts for more than 5 hours. You have a fever or chills. You have persistent nausea and vomiting. You develop jaundice. You have dark urine or light-colored stools. Summary Cholelithiasis (also called gallstones) is a form of gallbladder disease in which gallstones form in the gallbladder. This condition is caused by an imbalance in the substances that make up bile. This can happen if the bile has too much cholesterol, too much bilirubin, or not enough bile salts. You are more likely to develop this condition if you are female, , using medicines with estrogen, obese, older than age 40, or have a family history of gallstones. You may also develop gallstones if you have diabetes, an intestinal disease, cirrhosis, or metabolic syndrome. Treatment for gallstones depends on the severity of the condition. Silent gallstones do not need treatment. If gallstones cause a gallbladder attack or other symptoms, treatment may be needed. The most common treatment is surgery to remove the gallbladder. This information is not intended to replace advice given to you by your health care provider. Make sure you discuss any questions you have with your health care provider. Document Released: 08/16/2006 Document Revised: 08/02/2018 Document Reviewed: 05/06/2017 [employer] Patient Education 2020 [employer]. Follow Up Care 12/07/2022 21:26:38 With:Fernando Clark Address: [facility] [address], [address] [place] [address] [phone] Business (1) When:12/10/2022 Comments:General surgeon in [place] With:Willie LOZADA Address: [facility] [address], [address] [address]- Business (1) When:12/10/2022 Comments:General surgeon at [place] With:Please return to the ED with any new or worsening symptoms including worsening pain, fevers and chills, worsening nausea and inability to tolerate a liquid diet. Address:Unknown When: Unknown With:You may follow with the general surgeon recommended to by your primary care provider. You have alsobeen provided with the information for the local [facility] general surgeons. Address:Unknown When: Unknown [facility]04-06-2023 Evaluation + Plan noteExtracted from: Title:ED Note Author:Lupis Miller PA-C [place] e:12/07/22 Cholelithiases (K80.20: Calc ulus of gallbladder without cholecystitis without obstruction) Nausea (R11.0: Nausea) Orders: dicyclomine, 10 mg = 1 cap(s), Oral, QID, PRN Pain, X 7 day(s), # 28 cap(s), Refills(s) 0, Pharmacy: [facility]/pharmacy #[id number], 167.6, cm, 12/07/22 21:32:00 EDT, Height/Length Dosing, 79, kg, 12/07/22 21:32:00 EDT, Weight Dosing ketorolac, 15 mg = 1 mL, Injection, IV Push, Once, Stop date 12/07/22 22:20:00 EDT, STAT, Start date 12/07/22 22:20:00 EDT, 12/07/22 22:20:00 EDT ondansetron, 4 mg = 2 mL, Injection, IV Push, Once, Stop date 12/07/22 22:21:00 EDT, STAT, Start date 12/07/22 22:21:00 EDT, 12/07/22 22:21:00 EDT ondansetron, 4 mg = 1 tab(s), Oral, q6hr, PRN Nausea, X 3 day(s), # 12 tab(s), Refills(s) 0, Pharmacy: [facility]/pharmacy #[id number], 167.6, cm, 12/07/22 21:32:00 EDT, Height/Length Dosing, 79, kg, 12/07/22 21:32:00 EDT, Weight Dosing potassium chloride, 40 mEq = 2 tab(s), Tab-ER, Oral, Once, Stop date 12/07/22 23:04:00 EDT, STAT, Start date 12/07/22 23:04:00 EDT, 12/07/22 23:04:00 EDT Automated Diff Basic Metabolic Panel CBC w/ Auto Diff eGFR Extra Blue Tube Extra SST Tube Hepatic Function Panel Lipase Level U Beta Hcg Qual UA With Cult Reflex Urine Culture 22-year-old female presents to the ED with complaints of abdominal pain, nausea. Had an outpatient ultrasound performed yesterday which showed gallstones. In the ED patient is afebrile, vital signs are stable, no acute distress. On exam patient has a relatively benign abdomen, no significant right upper quadrant pain, negative Carlson sign. Labs are reassuring, no leukocytosis, liver enzymes within normal limits. Most likely symptomatic cholelithiasis. Results are discussed with the patient at length. Discussed options such as admission for urgent cholecystectomy versus discharge home with nausea medicine and outpatient follow-up with general surgery at length. At this time patient has minimal pain, nausea controlled after Zofran and she was able to tolerate an potassium and liquids in the ED without vomiting. Patient regarding discharge home with outpatient follow-up with general surgery. She received referral for PCP today for a surgeon with [facility], also given information for the local [facility] surgeons. Patient is instructed to return to the ED with any new or worsening symptoms including worsening abdominal pain, fevers, chills, worsening nausea or vomiting. Patient voices understanding and is agreeable. Diagnostic Tests Pending * Urine Culture 12/07/22 [facility]04-03-2023 Evaluation + Plan note Diagnostic Tests Pending * ANGEL w/Reflex if POS 12/04/22 [facility]09-30-2022 NoteOP Note OPERATION DATE: 06/03/2022 PROCEDURE: Primary low transverse section. PREOPERATIVE DIAGNOSIS: 1. Intrauterine 39 weeks. 2. Failure to induce. 3. Maternal discomfort. 4. Maternal intolerance to labor, requesting . POSTOPERATIVE DIAGNOSIS: 1. Intrauterine 39 weeks. 2. Failure to induce. 3. Maternal discomfort. 4. Maternal intolerance to labor, requesting . ANESTHESIA: Spinal with Duramorph. SURGEON: John Wilson D.O. DIRECTOR CAREER: JOSÉ Burnham URINE OUTPUT: Yellow and clear. BLOOD LOSS: 575 mL. SPECIMEN: Placenta. FINDINGS: Viable male. Apgars 7 at 1, 9 at 5. Weight unknown at this time. PROCEDURE: Patient was taken back to the Operating Room where she was given a spinal anesthesia with Duramorph without difficulty. She was prepped and draped in the normal sterile fashion. A Pfannenstiel skin incision was then made 2 cm above the symphysis pubis and carried down to underlying rectus fascia using a Bovie. The fascia was incised in the midline and extended laterally using Nava scissors. Two Qamar clamps were placed on the superior aspect of the fascia and dissected off the underlying rectus muscles. The same was performed on the inferior aspect as well. The muscles were then in the midline. Peritoneum was identified and entered bluntly. The peritoneum was then extended superiorly and inferiorly with good visualization of the bladder. The bladder blade was inserted. A low transverse incision was made on the patient's uterus and extended laterally digitally. The was then delivered atraumatically after the bladder blade was removed in the cephalic position. The cord was clamped and cut. Cord blood was obtained. The infant was handed off to awaiting team. The patient's placenta was spontaneously delivered. The uterus was then exteriorized. The uterus was cleared of all clots and debris. The bladder blade was reinserted. The patient's uterine incision was closed using #0 Vicryl in a running lock fashion. Excellent hemostasis was assured. The uterus was then returned to the patient's abdomen. The patient's abdomen was copiously irrigated using warm saline. Peritoneal gutters were cleared of all clots and debris. Again excellent hemostasis was assured. The patient's peritoneum was closed using 3-0 Vicryl in a running fashion. The patient's fascia was closed using #0 Vicryl in a running fashion. The patient's skin was closed using 4-0 Vicryl subcuticularly. The patient tolerated the procedure well. Sponge, lap, and needle counts were correct x2. The patient was taken to the Recovery Room in stable condition.[id number] Note DISCHARGE SUMMARY DISCHARGE DATE: 06/17/2022 PRIMARY DIAGNOSES: 1. Intrauterine at 39 weeks. 2. Failure to induce. 3. Maternal discomfort. 4. Maternal intolerance to labor, requesting . PROCEDURE: Primary low transverse section. HOSPITAL COURSE: As expected. Please see chart for full details. LABORATORY DATA: Please see chart. COMPLICATIONS: None. DISCHARGE CONDITION: Stable. CONSULTATION: Anesthesia. DISCHARGE INSTRUCTIONS: 1. Diet: Regular. 2. Medications: a. Percocet 5/325 one to two p.o. every 4-6 hours p.r.n. pain. b. Motrin 800 one p.o. every 8 hours p.r.n. pain. 3. Followup in one week. Restrictions: Pelvic rest for 6 weeks. No heavy lifting. May drive when pain free and no longer on narcotics.[facility] [id number] NoteOPERATIVE NOTE OPERATION DATE: 06/04/2022 PROCEDURE: Primary low transverse section. PREOPERATIVE DIAGNOSIS: 1. Intrauterine 39 weeks. 2. Failure to induce. 3. Maternal discomfort. 4. Maternal intolerance to labor, requesting . POSTOPERATIVE DIAGNOSIS: 1. Intrauterine 39 weeks. 2. Failure to induce. 3. Maternal discomfort. 4. Maternal intolerance to labor, requesting . ANESTHESIA: Spinal with Duramorph. SURGEON: John Wilson D.O. DIRECTOR CAREER: JOSÉ Burnham URINE OUTPUT: Yellow and clear. BLOOD LOSS: 575 mL. SPECIMEN: Placenta. FINDINGS: Viable male. Apgars 7 at 1, 9 at 5. Weight unknown at this time. PROCEDURE: Patient was taken back to the Operating Room where she was given a spinal anesthesia with Duramorph without difficulty. She was prepped and draped in the normal sterile fashion. A Pfannenstiel skin incision was then made 2 cm above the symphysis pubis and carried down to underlying rectus fascia using a Bovie. The fascia was incised in the midline and extended laterally using Nava scissors. Two Qamar clamps were placed on the superior aspect of the fascia and dissected off the underlying rectus muscles. The same was performed on the inferior aspect as well. The muscles were then in the midline. Peritoneum was identified and entered bluntly. The peritoneum was then extended superiorly and inferiorly with good visualization of the bladder. The bladder blade was inserted. A low transverse incision was made on the patient's uterus and extended laterally digitally. The infant was then delivered atraumatically after the bladder blade was removed in the cephalic position. The cord was clamped and cut. Cord blood was obtained. The was handed off to awaiting team. The patient's placenta was spontaneously delivered. The uterus was then exteriorized. The uterus was cleared of all clots and debris. The bladder blade was reinserted. The patient's uterine incision was closed using #0 Vicryl in a running lock fashion. Excellent hemostasis was assured. The uterus was then returned to the patient's abdomen. The patient's abdomen was copiously irrigated using warm saline. Peritoneal gutters were cleared of all clots and debris. Again excellent hemostasis was assured. The patient's peritoneum was closed using 3-0 Vicryl in a running fashion. The patient's fascia was closed using #0 Vicryl in a running fashion. The patient's skin was closed using 4-0 Vicryl subcuticularly. The patient tolerated the procedure well. Sponge, lap, and needle counts were correct x2. The patient was taken to the Recovery Room in stable condition.[facility]Evaluation noteNo assessment information availableBrecksville [facility] Work Phone: Evaluation note* Diagnosis 20 weeks gestation of - Primary Abnormal thyroid function test Nonspecific abnormal results of thyroid function study Bipolar affective disorder, remission status unspecified ([facility]) Depression affecting Pyelectasis of fetus on ultrasound [facility] Diagnosis Abnormal thyroid function test- Primary Nonspecific abnormal results of thyroid function study Pyelectasis of fetus on ultrasound [facility] N[facility] No data available for this section [facility] No data available for this section [facility]ructionsNot on filedocumented in this encounter [facility] filedocumented in this encounter [facility] filedocumented in this [facility] No data available for this section [facility] Summary Purpose Family History No Family History Records Found Relationship Condition Age at Onset Recorded Date/T sophia father High blood cholesterol Unknown Not Specified Alive and well Unknown Advance Directives No Advanced Directives Records Found Advance Directive Response Recorded Date/ Time Advance Directives No March 01 9:39am Chief Complaint and Reason for Visit Chief Complaint Gallstones, Abdomina l Pain Reason for Referral Specialty Diagnoses / Procedures Referred By Contac t Referred To Contact Maternal and Medicine Diagnoses Abnormal thyroid function test Pyelectasis of fetus on ultrasound Procedures US MFM with or without consult Verona Decker MD [address] [place] [address] [facility] [address] [place] [address] Referral ID Status Reason Start Date Expiration Date V isits Requested Visits Authorized [id number] Pending Review 10/19/2023 10/18/2024 1 1 Additional Source Comments INFORMATION SOURCE (unrecogn ized section and content) DATE CREATED AUTHOR 11/01/2022 [facility] DATE CREATED AUTHOR AUTHOR'S ORGANIZ ATION 01/12/2023 [facility] DATE CREATED AUTHOR AUTHOR'S ORGANIZ ATION 05/04/2023 [facility] DATE CREATED AUTHOR AUTHOR'S ORGANIZ ATION 09/27/2023 [facility] EPIC DATE CREATED AUTHOR AUTHOR'S ORGANIZ ATION 10/20/2023 [facility] Patient Care team informatio n (unrecognized section and content) Team Status: Active Member Role Status Dates Madhavi Bustamante MD Primary Care Provider Active Team Status: Inactive Member Role Status Dates Angus Benedict DO Attending Provider Active Madhavi Bustamante MD Primary Care Provider Active Goals (unrecognized section and content) Goals may be documented in a n alternate section Reason for Visit (unrecogniz ed section and content) Reason Comments Thyroid Issues Chronic Cholecystitis H/X H/X C/S FOR RECORDS PERTAINING TO PATIENTS WHO ARE OR HAVE BEEN ENROLLED IN A CHEMICAL DEPENDENCY/SUBSTANCEABUSE PROGRAM, SOME INFORMATION MAY BE OMITTED. This clinical summary was aggregated from multiple sources. Caution should be exercised in using it in the provision of clinical care. This summary normalizes information from multiple sources, and as a consequence, information in this document may materially change the coding, format and clinical context of patient data. In addition, data may be omitted in some cases. CLINICAL DECISIONS SHOULD BE BASED ON THE PRIMARY CLINICAL RECORDS. [facility]. provides no warranty or guarantee of the accuracy or completeness of information in this document.
--- OUTSIDE RECORDS SUMMARY | 2023-10-25 12:37 | XMS_ITS | CCD ---
Author Name Unknown Address [address] [place] [address] Organization [facility] Care Team Providers Care Ware Dresser Name Role Phone REQUEST, DR SHERMAN LISTED [...] Unavailable PRASHANTH ., DR HARKINS Admitting Unavailable PRASHNATH ., DR HARKINS Attending Unavailable PRASHANTH ., DR HARKINS Consulting Unavailable PRASHANTH ., DR HARKINS Admitting Unavailable ZIEBER, DR MELITA Rivas Consulting Unavailable PRASHANTH ., DR HARKINS Attending Unavailable PRASHANTH ., DR HARKINS Consulting Unavailable PRASHANHT ., DR HARKINS Admitting Unavailable REQUEST, DR [...] Unavailable PRASHANTH ., DR HARKINS Attending Unavailable LEANDER, DR ELIAS Saenz Consulting Unavailable REQUEST, DR NONE LISTED Primary Care Unavaila ble PRASHANTH ., DR HARKINS Consulting Unavailable REQUEST, DR NONE LISTED Primary Care Unavaila ble PRASHANTH ., DR HARKINS Admitting Unavailable PRASHANTH ., DR HARKINS Attending Unavailable LEANDER, DR ELIAS Saenz Consulting Unavailable PRASHANTH ., DR HARKINS Consulting Unavailable REQUEST, DR NONE LISTED Primary Care Unavaila ble PRASHANTH ., DR HARKINS Attending Unavailable PRASHANTH ., DR HARKINS Consulting Unavailable PRASHANTH ., DR HARKINS Admitting Unavailable Madhavi Bustamante Primary Care Physician [phone] Madhavi Bustamante Referring Unavailable Madhavi Bustamante Attending Unavailable Madhavi Bustamante Admitting Unavailable Yash Medina Attending Unavailable Yash Medina Attending Unavailable DO Angus Benedict Attending Provider MD Madhavi Bustamante Primary Care Provider Unavaila [...] f41.1, # 30 tab(s), Refills(s) 2, Pharmacy: [facility]/pharmacy #[id number], 168, cm, 05/19/20 1:25:00 EDT, [...] day(s), # 28 cap(s), Refills(s) 0, Pharmacy: [facility]/pharmacy #6173, 167.6, cm, 12/07/22 21:32:00 EDT, [...] Daily, # 30 tab(s), Refills(s) 5, Pharmacy: [facility]/pharmacy #6173, 168, cm, 05/19/20 1:25:00 EDT, Height/Length Dosing, 90, kg, 05/19/20 1:25:00 EDT, Weight Dosing Start Date: 06/17/20 Status: Ordered levonorgestrel 0.959734 mg/hr intrauterine system (4 sources) Progestin, Progestin-containing [...] BID, # 60 tab(s), Refills(s) 5, Pharmacy: [facility]/pharmacy #6173, 168, cm, 05/19/20 1:25:00 EDT, [...] Pain, # 20 tab(s), Refills(s) 0, Pharmacy: [facility]/pharmacy #6173, 168, cm, 05/07/21 16:26:00 EDT, Height/Length Dosing, 80, kg, 05/07/21 16:26:00 EDT, Weight Dosing Start Date: 05/07/21 Status: Ordered Start: 05-19-2020 take 1 tablet by maribell th twice daily Naprosyn 500 mg Tab 500 mg = 1 tab(s), Oral, BID, # 20 tab(s), Refills(s) 0, [facility] 168, cm, 05/19/20 1:25:00 EDT, Height/Length [...] day(s), # 12 tab(s), Refills(s) 0, [facility], 167.6, cm, 12/07/22 21:32:00 EDT, Height/Length [...] Daily, # 30 tab(s), Refills(s) 5, Pharmacy: [facility]/pharmacy #6173, 168, cm, 05/19/20 1:25:00 EDT, [...] Free T4 [Mass/Vol] 0.70 ng/dL Normal 0.61-1.60 [facility] Comment on above: Performed By: #### T HYR #### [facility] ([id number]) [address], [address] [place] [address] TSH 0.72 uIU/mL Normal 0.49-4.67 [facility] Comment on above: Performed By: #### T HYR #### [facility] ([id number]) [address], [address] [place] [address] Thyroid profile includes TSH FT4on 10-18-2023 Free T4 [Mass/Vol] 0.70 ng/dL 0.61 - 1. 60 ng/dL [facility] TSH Qn 0.72 m[IU]/L [facility] Free Cell DNAon 2022 [facility] Alkaline Phosphataseon 03-19 ALP [Catalytic activity/Vol] 71 U/L Normal 34-104 [facility] Comment on above: Performed By: #### B ILTD, LIPASE, SLOANE, ALP #### [facility] [address] Amylaseon 03-19-2023 Amylase [Catalytic activity/Vol] 71 U/L Normal 29-103 [facility] Comment on above: Performed By: #### B ILTD, LIPASE, SLOANE, ALP #### [place] [address] [place] Bilirubin, Total and Directo n 03-19-2023 Bilirubin [Mass/Vol] 1.0 mg/dL Normal 0.3-1.0 [facility] Comment on above: Performed By: #### B ILTD, LIPASE, SLOANE, ALP #### [facility] [address] [id number] [place] Bilirubin,Indirect 0.9 mg/dL Normal [facility] Comment on above: Performed By: #### B ILTD, LIPASE, SLOANE, ALP #### [facility] [address] Bilirubin.indirect [Mass/Vol] 0.10 mg/dL Normal 0.03-0.18 [facility] Comment on above: Performed By: #### B ILTD, LIPASE, SLOANE, ALP #### [facility] [address] [place], [place] [address] [facility] HCG,Urineon 03-19-2023 Beta HCG ( test) Ql (U) Negative Normal [facility] Comment on above: Result Comment: PERF ORMED BY: [address] [place] [address] PATHOLOGIST ENAMEL FINISHER BARBARA FERNANDEZ M.D. Performed By: #### U HCG #### [facility] [address] [place] [address] Juan 03-19-2023 L Specimen: [id number] Received: 03/19/23 Status: JULIEN Weldon Num: [id number] Spec Type: Surgical Subm Dr: Angus Benedict DO Tissues: A Gallbladder (GALLBLADDER) Procedures: Saranya STANFORD/Ariel L3 Age/ Patient Sex Location Account Attending Physician Darline Falcon / [place] [id number] Angus Benedict DO SPEC NUM: [id number] RECD: 03/19/23 STATUS: TAEHeavenly WELDON NUM: [id number] CLAY: 03/19/[address]: Angus Benedict DO ENTERED: 03/19/[address] [facility] [address]: SPEC TYPE: Surgical DEPT: S ORDERED: [...] identified with a rubbery, yellow-vergara cut surface. Talent Management Specialist sections are submitted in one cassette labeled A1. Specimen: [id number] Received: 03/19/23 Status: TAEHeavenly Weldon Num: [id number] Spec Type: Surgical Subm Dr: Angus Benedict DO Tissues: A Gallbladder (GALLBLADDER) Procedures: Justus STANFORD Patient: Falcon,Darline L [id number] (Continued) Specimen: [id number] Received: 03/19/23 (Continued) Signed (signature on file) Haile Dc MD 03/21/23 1203 Specimen: [id number] Received: 03/19/23 Status: JULIEN Weldon Num: [id number] Spec Type: Surgical Subm Dr: Angus Benedict DO Tissues: A Gallbladder (GALLBLADDER) Procedures: Justus STANFORD Patient: Darline Falcon Matthew [id number] (Continued) Specimen: [id number] Received: 03/19/23 (Continued) Microscopic Description One H E slide reviewed. The microscopic examination confirms the diagnosis. CPT Codes 88076 Specimen: [id number] Received: 03/19/23 Status: JULIEN Weldon Num: [id number] Spec Type: Surgical Subm Dr: Angus Benedict DO Tissues: A Gallbladder (GALLBLADDER) Procedures: HIEN, Gross/Micro L3 Patient: EzekielDarline Castro [id number] (Continued) Signed (signature on file) Haile Dc MD 03/21/23 1203 Normal [facility] Lipaseon 03-19-2023 Lipase [Catalytic activity/Vol] 32.0 U/L Normal 11.0-82.0 [facility] Comment on above: Result Comment: PERF ORMED BY: [place] [address] PATHOLOGIST ENAMEL FINISHER BARBARA FERNANDEZ M.D. Performed By: #### B ILTD, LIPASE, SLOANE, ALP #### [facility] [address] Discharge Instructionson Discharge Instructions [id number] #1.00CD:127 Normal [facility] Consent for Treatmenton 01-01 Consent for Treatment [id number] #1.00CD:127 Normal [facility] ED Clinical Summaryon 2022 ED Clinical Summary [address] [address] ED Clinical Summary Person Information Name: DARLINE FALCON [place] Age: 22 Years : 2000 Sex: Female Language: Pashto PCP: Madhavi Bustamante MD Marital Status: Single Phone: [phone] Visit Id: Visit Reason: Wrist pain-swelling; Hand [...] 01/11/2023 17:05:20 01/11/2023 17:05:20 ADDRESS: [place] [phone] PHYS DOC NOTES: MEDICAL INFORMATION: Prescriptions Given: [...] Address: When: Madhavi [place] [place] [address] [facility] ([place] In 3 days 01/14/2023 DIAGNOSIS: Finger sprain; Hand contusion Normal [facility] ED Note-Physicianon 01-12-20 ED Note-Physician Basic [...] days 01/14/[address] [place] [address]- Business (1) Additional Instructions: Patient Education Finger Sprain, Adult Contusion Attestation Patient seen and evaluated by the physician assistant professor of drama. Attending physician was present in the emergency department and supervised care. This visit was performed by both the physician and an APC. I performed all aspects of the MDM as documented. This report was transcribed using voice recognition software. Every effort was made to ensure accuracy, however, inadvertently computerized hangersmith mistakes may be present. Appropriate healthcare PPE [...] oblique views (more content not included)... Normal [facility] Comment on above: Result Comment: Elec [...] sitting or lying down. Medicines ? Take vmve-zjn-yayccol and prescription medicines only as told by [...] Reviewed: 07/13/2021 Elsevier Patient Education ? 2022 [employer] Contusion A contusion is a deep [...] any abernathy (more content not included)... Normal [facility] ED Patient Summaryon 023 ED Patient Summary [address] [address] Patient Discharge Instructions Person Information Name: DARLINE FALCON Age: 22 Years Arrival Date: 01/11/2023 15:30:18 Discharge Diagnosis: Finger sprain; Hand contusion Primary Care Physician: Madhavi Bustamante MD Provider Information Primary Provider: Yash Medina DO Advanced Door Machine Operator:Derek Salcido PA-C The exam and treatment you received in the Emergency Department were for an urgent problem and are not intended as complete care. It is important that you follow up with a doctor, nurse practitioner, or physician?s assistant professor of drama for ongoing care. If your symptoms become [...] With: Address: When: Madhavi Bustamante [place] [address] Business (1) In 3 days 01/14/2023 In the event that this physician does not participate in your insurance network, please consult with your insurance company to find a nearby participating provider. Patient Education Materials: Finger Sprain, Adult; Contusion A MESSAGE TO ALL PATIENTS REGARDING OPIOIDS PRESCRIPTION OPIOIDS: WHAT YOU NEED TO KNOW Prescription opioids can be used to help relieve fmbnhjyx-gi-hccmou pain and are often prescribed following a [...] be struggling with addiction, tell your health outdoor emergency care technician and ask for guidance or call [facility]?S National Helpline at 7-960-238-QPXQ. (more content not included)... Normal [facility] XR Hand 3+ Views Lefton 01-01 [...] in mGy = na DAP = na [facility] Coding Summary.on 12-12-2022 Coding Summary. CD:[id number] Ww+PGhlYWQ+GU0RAGJdQ 50iaMDwrD5cR1LPNOkHA ywgQVBQTElOSyIgbmFtZ T8ogQPbXIRj IC8+YW1aCIKjSoxorVRp f7H1jVN2L40kfr7pLTwv fJJ4DXIlRxGgixvmr0bd vOs1YOjgPaewKwJd GSTpnP08CNK2lX58Jf49 kBBeeNIgj2cqsPu1WdCj VQZqXIX6uSqbIBhsl2Tg EEXiG86feECky4N4 IGNvbGxhcHNlOyBlbXB0 yM0eQBmifypfx9egrjho Rlt9en74dLLxg4L3oSN3 R0VrlpI5GLWhcSGm YfwzhCSChG7rqfdgm5qh ogilVlVaKHVnQHr8NJp9 UNHxaKxaXgLoHD98HUC5 UTGxccAoT8GtWTVj uWsaJwA7m4L2Uq7CM3RY GvowE4DVALTRCGbloOG+ KW52xz92O6UjMhonBrf2 HBTcFPM3oRP6gD2x NBDyKMpto6K9hED2Q6Cb lyJppg6ms2qzPUYgIBya O97gyMJgh8K5ERToaQQ5 GFJwiDwuEtCqkN50 Oyc+IMZdtMipi0FlQswn c8jwi3bdpRu1BnbpOELp yqSawBtsKWL2i3GsPd0m VQReqWX5aFA8rJ8f AaJcGjE0AXleM760VyRw rHFgLmgzV01eO3ZoyYE+ HMAnGay0MWYpeVeuRG0d P2PgMWJvqkzejQCu iRuhRY0mUHQdxjrnJUHf pT2jSROqT1x6GqPyAwW3 SHurR8XhFORvzizdBb79 zM5iVkTzCiJ5LVgu B3SgotI9HIPhfZEkMJxs HNV3S54ti7A9ODIbLWKf QJP5nAW9qA4goMmskusp bGVmdDsgdmVydGlj OJonAAsmX834AQWhyOlt PkNvZGluZyBEYXRlOiAg MDQvMTEvMjAyMzwvdGQ+ NTOcWGK4iYluSRDx pADeHBkmGu3ozAnmaHrp JG9jWCHipagcGHFfbD0f IKRelRAsfDaxWA2uXWBx dnbjj884IxNoXNJ7 HQRslNBiC2ZdhF2iFkJs WLRrMNGfQ5RxjNZnEXwj M024YZpiWvM8RFWbesJu C1NbVTRxuAlsZmP0 u2D1Zc9Xv8JzjqbxJ2Ef vHFoXbTzSlwpAMw2E0Ye PjwvdHI+KC28AIOmUP06 YQt6KTC3jEayGVkj GOOkM0BmrA5yKhGhVGCc ZGRkOyc+PHRhYmxlIHdp ZHRoPScxMDAlJyBzdHls XG8vKv1gLGYjLBNn wRofcYEtSiHfn8wcQWQo OCbvQJ2uaHghE0QukHX6 CSIjx4b9Hm36Q22kF2Zp dXA+QOLptJA8uHJ9 hG4yHuTqOcS5MWqfP341 NdVncKBaDzxxe0mit8gj aVh5OwM7EHDkobSeqKnc EAB6o1PbFm39B30k IHdpZHRoPSIxNSUiIHZh bMagkj2ryD5cJo2+PGNv qUG9tBY3fY4zQcFzCzC5 MBmmF134PfQibCVs Qunmn3urv1hstJm5SgMz KEWoyoXamEviOJJ3m1Tw Dc58M3IejBctc4VvHmf5 eg17fTGxp3K2jPH9 B8EzCDIpvkmipLRglAyk ZP1cNAEtdqmkHNIbuP0j DVFuA1p5UqZpTyW3QUin O9HbimJ1MCQjvXVs GGHquNWXgZ9hdrstt8xw lnhyPdZuSKTlWJi1SEm6 UZIpdSisQvKvBTO4SeP2 XUD3xOIdbG4qaGvj ppkcbZ5yYua+UAM5ePEw wWMPUU0nQeslxLE+PHRk QKY6bEarTEhgUHGoiE0d UGWaX5p8LlWwUdM6 BFpiL3RoogM0PDVnmCQo NCCatKGAeS3ymidrj8uu lhdcNnUkFHUoEXw2QZs8 LWFsaWduOiBsZWZ0 NzT5DYE7sWHjrO4scEtk opgpgQ5oPsi+QmlydGgg WSS2CGz8M0FfPgj8YOKz oBbgGF8exVLdDLgx Lu1wbJipcCxeJM6fTYMf hkeek151PxRgp6qaKRCm fJOnCAkqLTQ3C51eg8T6 HJHlBJFiVMY9hNE3 mM0deHbtbajkbNCxkGes pqWpnGvpHJeoDJphM019 USAemRjbMjYyJPn8J9Oj Bht4HPVlyXniSS5n iVGnIEneZt5qwJggfQxu LG5eWKXddxhhm139WwEn k6gmXOImtIFiDTtfDSJ6 H13pg0X3KPBdRIYv FIW1lFW2mD9plSkeugax bGVmdDsgdmVydGljYWwt SVleJ935NYCusLuqAnNl xFe6L1ShIlw4DWEm lAbxEG5bfSUlIKoqUw5i wAxqgBivTM9iUWEobyfl q273SwVco9fsOGYveDOd PAluLZW1V24ho9T0 CYGiLYXdJRF6wPK8fK3o bGlnbjogbGVmdDsgdmVy fGroGNylWMneI700XMYs cDsnPlBhdGllbnQg RPlrFIq9Z8KbKfkadEI+ OJ42BWDiKB51qFEzmBDo o5mswSz4OnBgMWEhSIV5 pGkpKLvzu6EuLCAx M12ivMOil0Y5GLMycEqe fTAiXmJoxKL1iC7xLQcu vjccb2swxphzWrkzp0pj kl42nB25D17hOWeh ZHRoPSIzMCUiIHZhbGln gh6biY5bDt7+PGNvbCB3 iHS8dZ3iUANfDzJ2FBby W404FaSusMHrAcat h9mqw5rtrRb4CeH5TIPu gdHwsTgtGVS9p6AyAx52 D02vZFwySPFhSZOxKMBj HTEeoAxoqw0nlK4x Ii8+SFHoiOJ1kNF4aR7u YrVhZnQ3ABcpX514RsIz sRQbCywfC67yX5CwmUI+ MWGmGur7ONOefRem RZ6lgGFmEVqrJq7uWMP0 VrTqEyJtPEtkY6GcLZJw gjlohjshuTO8VGMaXRWj vQ24Bk1ulQszJTQv jMYNgX0vqdtju4txxncs EhCzXSLcIMv1HJx6FIYw iEooAdVsKNO3SzA3IFK2 aARriS5tqOpsbfne cY0uQ9AdWAKunilyWy81 jG0cKmPwRkM6MYzuNpp+ WklNTUVSTUFOLCBJVlkg TDwvdGQ+PHRkIHN0 wBkoRCbjIARxmH1kWRNg B2y0UkDcLjM2CXtnE0Sb BMJhnadiWo62aZ6vOpWz FbH8GRqlJ0WhqsW5 CJKlnWYpEMskAJP0F88t x9B5CCXwXXLsRRZ9nFW5 bC5eiFlvxrxypTMvyZbm dmVydGljYWwtYWxp Q730PHMcnXyoQgQ0NeMf OdOwSKR2P3RxEtx1VPMu vAklZX5lgDNpXQdtPv5z cBghuTplAY0jAMKp zqfxOJLxiR1yHVRpmIXg nOwtYR2aHOCmonjji251 ChXvRYL0IGNfwBOqO1Jl kV0zIzBuHSKpAPPq D4RaaEUpQGriZ932IMsd JfJ6YCDqjiEpF5NzUTAj gOmzNyR9q0B3Pc5qVkRD ZWFyczwvdGQ+PHRk SPP5gTbhDRbsBGKljH3h DQDlY2p4VqRxUcK3XBpy M4MsWJPstjryDx42pK7o ThEgNaN2TDmtP4Uz mtC2NFGqwPDaEPeyIUO5 A06fw9Z8FFBxBOUkJBN7 sAQ3lI6woKybywxfaSFh dDsgdmVydGljYWwt WHsjK155PSCdnYnnDwTb bWFsZTwvdGQ+PHRkIHN0 iPrsSXirKWInqF9mGSKc B5v7EtGaPyX9SDic F1QySPBiiljsYp95fT5r RdJjFaZ3EHnyM4AesjE9 HTKhiNEfOOnxPVF2V58l d9W0ZHQcXNFrKTW7 bEU7pH5dhCfgfhzbeLYe dDsgdmVydGljYWwtYWxp J594OSOcpAvoPfFaJLMu PL3dwNpanHP+PC90 gt56V7FfZspmMgv0MMXp WKR8fYT1lD9hAZKqNYvt d6I3xCP9P3BudqOjap8d l9csJSRsIOezK87f rSPys8H6MTJfcSO4FRWm zRghLaMlmK34Yrh+PGNv mWtxv6QdZurvy0lxq5rj dYl8VqUkTNUckiSg vLetTNV3u5IfNn90J95i IHdpZHRoPSIzMCUiIHZh tDcvpy9ztJ9wDm9+PGNv qFV8uQQ0cL2oVhQc FtF2VUjrD346ZtPdsMCv Zxqxd1oxt6rayWw7CcLv NWTsxtMcnOygAFU5l5Ao Tt83W5LukKtbv2Gg Ldz6vb05sBQgk9T7bUF2 E2WaRABzrlpipMQoaAox JP3uVDPptjbuAITwiW8y KGRyR3e1UzMoCoV0 TWsjO0FrjfK2MZGitYQq TMGvuTTGqP6qfpfvx8co aibjFeSxGKOxWAz3KIo2 LWFsaWduOiBsZWZ0 BmN7EID7oSEllF9agZfa olfemB2fMgz+ZOa8u7ij gXNhZQ5aaFJ2MV62KO41 rIMun0D0oLZ8S7Dv SVCcqrhhhjrcvBJ6OURu AOZlmB43Mz2gaQhqOm7i NSDxYIB3PAZcmLQbI2Rj uZ2gGkFnHEKsFSBj V6RcyYWbYXgxT133IMie WhG5UPKcuhDzI6QxZWEv tHpaSqI2e5Z7Jk2BTP72 EN55AN52cWUdb9W3 qTM2K8YfQVZfvnamhwgg aVL1GAQbSAAapS38Cc4j tAfeSp8wXINkZXE6TBTp vFWeZ1MflB9qMdTp FMZySZIsC4KbrOFyCPxk H183CPglWgW4LSMekxNc R3RfTYJuiUazRiQ9o1A8 Qs8GGg45JA49OM31 nHHfs7F7iGU2Y6HsZLWq pveydravkKY6USLjTAEb dI68Gg1orCumAx3sSVUx QOV2IPNnzBJnH8Ja eN1uCpSbFOIwJIHdL8Ha oQMxNQjkY330TAoxPoQ7 PNLfdhUxP4ZlAZRkyPqv ZnN1o7G9El6ZAEux dyr5A5UkHsggfRL+PC90 ABVhXG59sRIkwHVrb4nu dWc5ZfGpSTRgDKD4aGhl WStwl3VpLSShD23m oHCgr2K6 (more content not included)... Normal [facility] C Urineon 12-09-2022 Bacteria identified Cx [...] Locations R1: This test was performed at: [facility], [address] [place] [address], [address] , , [facility] Comment on above: Performed By: #### 2 [id number], [id number], [id number] ####[facility] [address] [place] [address] BMPon 12-08-2022 Creatinine [Mass/Vol] 0.7 mg/dL Normal 0.5-1.3 [facility] Comment on above: Performed By: #### 2 663267, 9705760, 8670820, 98701497, 2925646, 8560806 ####[facility] [address] [place] [address] Urea nitrogen [Mass/Vol] 12 mg/dL Normal 5-21 [facility] Comment on above: Performed By: #### 2 983758, 2721839, 2647348, 88991893, 1723334, 2075456 ####[facility] [address] [place] [address] Urea nitrogen/Creatinine [Mass ratio] 17 No Units Normal 10-20 [facility] Comment on above: Performed By: #### 2 773487, 0654750, 1399751, 29383248, 4776816, 7510886 ####[facility] [address] [place] [address] Anion gap [Moles/Vol] 9 mmol/L Normal 6-16 [facility] Comment on above: Performed By: #### 2 026792, 2387641, 3502112, 45125804, 8627351, 8653714 ####[facility] [address] [place] [address] Calcium [Mass/Vol] 8.9 mg/dL Normal 8.9-11.1 [facility] Comment on above: Performed By: #### 2 806290, 7361159, 8015389, 19027155, 8056718, 7457799 ####[facility] [address] [place] [address] Chloride [Moles/Vol] 104 mmol/L Normal 101-111 [facility] Comment on above: Performed By: #### 2 522872, 6193663, 3505987, 45242507, 4387359, 1502065 ####[facility] [address] [facility] [place] [address] CO2 [Moles/Vol] 26 mmol/L Normal 21-31 [facility] Comment on above: Performed By: #### 2 937782, 5560014, 7487565, 32320599, 3633143, 3591940 ####[facility] [address] [place] [address] Glucose [Mass/Vol] 103 mg/dL Normal 55-199 [facility] Comment on above: Result Comment: If t his glucose result represents a fasting glucose, interpretation should refer to the following reference range: 55-99 mg/dL Performed By: #### 2 513796, 5736187, 7887176, 79618277, 6826922, 4113258 ####[facility] [address] [place] [address] Potassium [Moles/Vol] 3.3 mmol/L Low 3.5-5.3 [facility] Comment on above: Performed By: #### 2 818796, 7388403, 8630017, 89436054, 4201915, 3797603 ####[address] [place] [address] Sodium [Moles/Vol] 136 mmol/L Normal 135-145 [facility] Comment on above: Performed By: #### 2 966287, 0022402, 1859951, 89138264, 6953135, 3571806 ####[address] [place] [address] Coding Summary.on 12-08-2022 Coding Summary. CD:[id number] Ww+PGhlYWQ+FI0PBAYbW 15fkVYxxN0tT8LEHHmER ywgQVBQTElOSyIgbmFtZ T1zeNJvZOOq IC8+GS5hKTSlDzdgvIZq c2D4sRP5H80bcz4hNFum vEO6WYMjUoAxwuknn6qq lZd6HAjaAitkDuEh SKVvyB14VNJ3oF98Ar43 zEPrsIGxs6wooAl4WhFt CJNqQKV1tShkYJlko9Po YJKvK57vdNZst8D9 IGNvbGxhcHNlOyBlbXB0 vQ6vKElcxhvmq1rjdaid Evk3tx11gPSku7X7eMB7 X8IkrlD3UFCegXZm VybpgFOQoW9eidtdt0dz gadrGlLfGFBiTJi6XGb6 SHQalWmsGpRwTN38LOO4 VXSrtkZgV0YuOXCw wIgsZgN4r0L6Ub7CO3BA IyzxD7PJPKCWEKekdEI+ JZ80qn99M2LxRkbmPzb8 QGErKTH3xQO4nO5e YVJzAFsaz4I7tJD5M7Wv mzPxhq2gt2rmGLWvLCnf U26vhNAli1Z2EGErzYD8 EBAhlNfxQlLzqI96 Oyc+YJKhcRkys1RuVylh b7nen1nupIb1GutfUGRf sqImoCtzUXE8p2RkPs5l MVVjlNA6aFG6xZ8q RrWsLdZ0GIsrX160NiKj wUXaDqzzY00iB0XdxIT+ HJFkEbj6JYNfmFopQX7j F5BeSQUxcboerYUk pYigCH0nSGCmvjbiUFFa qH0oBZCnG2w2LfYqAmS7 EOulJ0InISCmfvxfRe25 vX0gYxWoLlJ1KNgr H6HronE9HHRhjVViNIhz RMZ4L97ov9M3WTAsGEVu BAY8sJN0aA6zfImxuogq bGVmdDsgdmVydGlj UDsjPItaD209ETSeoCit PkNvZGluZyBEYXRlOiAg MDQvMDcvMjAyMzwvdGQ+ LLPhTAH9iNhbYWHa lYGjQQguOd7chXyblSil OA0oKQUwncsqOSLyqD3n WCNoaVUukRbxKP9vLIPf ircxb649HxNpXIL0 TMPbvYDcR6AjtD2vOkDl NBJdJXGvP5CuyDRrUHug T616RDnsBhT1KIPxooGa T3FsZHEzkMjgHrL5 k5E1Ys1Cl7EuqahfR1Br cNKaEhSgBjmvOSb2G0Sp PjwvdHI+HO37SKSyKR67 LTf3XAB3tDbxQWoo MTKjE7WayD9uCiHvVSVb ZGRkOyc+PHRhYmxlIHdp ZHRoPScxMDAlJyBzdHls BZ8bOc6qVKSqPQZn tSjwwTIlMcWal1orWBHo VSrwGO3fyFikL5ZljEE3 APDom5z6Tr07J22zE6Sy dXA+SKUwkIU1eWT3 tT6uChEvKsN3QGrcK693 EmNmgWEyZrtry5hkf2qa pKi4NvP8DECykkRunOve JMC8x2YbCd08R99p IHdpZHRoPSIxNSUiIHZh zKqldi3zgW8rTc5+PGNv gHD8yUJ8zT3vZxXjSbS9 UOcwA772CqGcwWWa Paltv4uds4brhFy7VkPe ASSzzhGzzAzsCFI8h2Gq Uz53O5FayEpvl1VaSxb3 se28oITwn6C0bEG0 Z6BwHFKpkamwvYQvkQwy DS6iWBMntqcaFMZpnW1w UDUzA9u7TnHdQpD6WVmh Y4ZttnC9ZLOitHPs UMUsgHDRdA7abckrc3ez vfspGoWrSOJsEXe9HZn1 IZIyjBtkKbFxSXE0AaT9 QEH9nHEjtT5etZwf agtfcN6pTlm+UHL0ySAo vYQVOK0bUacupGF+PHRk EPE5kWatJHeqYDTwbE0m KBBrN6x8BnEuMjX7 AQibX2PbcbG1EGGbvHSc BLIlhCRCpL9qcqbzp7fl xexhZkWsTWUkQLx8AFg1 LWFsaWduOiBsZWZ0 ClJ6QEK8fPQtoJ1rdJqj mqmetV2qAyo+QmlydGgg NVE0WFz4D4UcOvm7FJYe rXekPR5izTCrNRca Uq5stEwnjMlcTX3eLJWl omhqp327CmUix5llBBLi kDAtDCfcEUQ5V20ra9A4 LNZqEFJrVZX5wZH6 eU9yvKjoctmrxURrxExx pqZitQnbSUgwGHkgY255 XHNjlWinKwVyGKr2J8Uz Kyj5IUGuaGzhNW0z eSVzNPjrQf8lgEjceOcm FC5oRGYwxhigi650QzMh a2ahSDEmdJImVTjuCNZ6 W09ed6U1UICbJJGe TOL2zJD9wE9nxAgvuaqj bGVmdDsgdmVydGljYWwt BLkcV558JLVfjGiaFlMf kAc3P3JoWic3VNFx cOtdMN6tyCZcKPlsNl6g wNpxpSerFP4pLVXfvpvv u815UiAhu6uzEGCctWIu NMulAFI8I58av7L9 GZLoXGPpNHY0zYO8rX5q bGlnbjogbGVmdDsgdmVy tXuyIJopDXjgW390ZDOo cDsnPlBhdGllbnQg RUloROs2K3KwEjrboDU+ DD43IBMyXR70oXSfzKHt t0ascDb5UwPiMTLzZMJ7 wHsxSNrkx5ShSFRw G62amOHwr1C7XYYegXnc vEQkIbToeHP6hD8rYMhj vpegc7pzdjnfTiydo4rd un01wU41U86sLQeg ZHRoPSIzMCUiIHZhbGln tc4wvZ2sWw1+PGNvbCB3 pYQ7uO1gEFUeWgJ5WQze E238SkApxDOiVlga l9yqu7glvDw4IrU0TJGc syYdvGjcKHP5q9AoXr72 T49lTTutHEVeKLDkBJPi NNQszAcniy9lfS9y Ii8+JRMxzRU5qXW4zW8z GfMqQiH3VEfkR371ZaQj aWVbEwfvG31mU5NfeVF+ AYXjNsj0CYElsTdo BQ4eyCJnMCjgIt9wPPO1 RiHjHzZuCBtlW3OgKYNt enjijhgbeSB4GCHwHIOs tE68Zf3laRmcJJHe tCWWeE4dpynuh4hvwdqr HfMlFJTtLLq3IMh5ALNe vNxuAlNpPFR1TnY9LNN8 nMUmfO0zwZthhxxz oD2aH9DtWZImstbbUg27 wI9qHgWgOuH8EKfdRym+ WklNTUVSTUFOLCBJVlkg TDwvdGQ+PHRkIHN0 zGxbFVzqNJFppU5sGSTw I2p8TrKfYsM1GRroW0Tr RQTauwtaIj45sL1jCdOw PdT0VUrnL6HvsvE8 FKThnKBzBAwjSWT2T00q v2B1IVUqWRRgWYG3uNQ6 pL6usOllwcyevHDnpRmv dmVydGljYWwtYWxp G423WENrpCjzIoX2UsKe JkMqSLH8N4ZfAos1TQHr qEipWD0ukXDxGRheUo3q iWkooBkkUT3aKBLq avpjMOLrgH5pLROqgMUx fIzaNY4yBHMkhpkno586 ZxCuLRH6QRFdxTQgC8Sl oJ8bQqPhVSVwSLIm P1QwqJMaBRpkN204TJts ZrR7OAOhbbToS2AgIPWc hDuwJhD5r4Q6Qm5mLfPF ZWFyczwvdGQ+PHRk GZF9pDbqGZbaUSIgsW5u HDIsW2c7EvGaZyY5OOnt Q4XkQUVwvggjYz06dY5m HeEaQtE0NMtwS6Uy mwG9IJFwhCCqYLiqAYC0 W63hx6M6XEZfHRWkKYT2 qUG9hJ0xxRyrhtlrlUVv dDsgdmVydGljYWwt AEgdS301FUZhpVwlToQj bWFsZTwvdGQ+PHRkIHN0 vUhsLBunYLEuzY5tFKXf U6y0TsAcDbF1CYmc D3YxVTEvsermBy13pZ1m CnFfKaO1NWxzK4SnpxB4 GWAtgBBjQIupOVH5C27k a4X5HGIvYQXbMND9 pOH7dZ3tcWkjfhkmjFAu dDsgdmVydGljYWwtYWxp I382LOUzxZksCe28bRQc sNljmiI9F9AjStco dHI+NN46AVXmUA23zJAh tTYmq4ovaBt2PtEjBABl LOR8wJrqPOwjc7VkHZNc U07lxLAjs4W4ZFXj qOtlfLRiYhTzoLF1bC9c JMqwrbsvn0hnxzkkLyso u2ibxw51eL45T68lKDab ZHRoPSIzMCUiIHZh zXmeuw7zvT1tFk1+PGNv eYE8oXQ7iE3uXxXeLyW5 SHsaJ181NzJyoGZtTndv j8qcb6rodKb0NgDo OMNskfIujGvqGPD0y8Ci Ts21N47oRWiyAGWmOIVd GYAaJCAmzNnozs5dgI3b Ii8+AH4nz2wyqp37 mV08yQA+PJPjXCW9cRup BDjtEDHtyV1sILfxYyW6 FLHzYaIcgO21zVOrSMra It5hrJkejNjzEH1k INMckouay571UmXrl0bm GEBylMLvWMhsDSK7C18q b8D8ZGTcJYJoICO3rNK6 eO1jaZtcdappuQJw dDsgdmVydGljYWwtYWxp U253EKHkbXkoMpNynKLb A4xwmbZMWV7bAetwtPO+ XIQcRLX4eWgbFFhe YMAjwO4hQWYjZ7b5UdRj YaP9YWgmS0WrlpR1QCTm pACrXNBitQBHbW3pugjy s6hqoxuuOwRmRCSu SXk6GKv1YAJakIkxEeHx HIV9VmL9KSJ3hKAggR7w mGcsbhcfoZ7eJvj+RklO OjwvdGQ+PHRkIHN0 fFnuAWslHDYcjS8bZQYi G0h6VoRxGtI9SQjmU5Uc hkM6VGMynUHeJEOscWEE aD6bwuipi8saohdi UdUoCKEiFYw9ZDa6FGDi qFjtPyMrTGT3DwI1WYM0 fDNyeD2faIwdojwrrX2h Oyc+TVJOOjwvdGQ+ WGQuPCS1hYyrAGpaLENu sS6jWEJxF2l1QlUjJbI6 VFbwH1RgkvP9QSUsyFIz VIHagBRBhX3pkjkz h2bhtfbeMoRtPGJzBAx9 TVt8VXHfcCaxPdUpUPA7 SpA1OBC9zEAwnF5jbQao rsbwgR1tOfd+UGF5 HNO2OI08QC28X9JyIirc dGFibGU+PHRhYmxlIHdp ZHRoPScxMDAlJyBzdHls LB3nMn5jWLOsBOTw bGxhcHNl (more content not included)... Normal [facility] Discharge Instructionson Discharge Instructions [id number]# 1.00CD:127 Normal [facility] ED Clinical Summaryon 2022 ED Clinical Summary [place] [id number] ED Clinical Summary Person Information Name: DARLINE FALCON [facility] Age: 22 Years : 2000 Sex: Female Language: Pashto PCP: Madhavi Bustamante MD Marital Status: Single Phone: [phone] Visit Id: Visit Reason: Nausea; Abdominal pain; [...] 12/07/2022 23:48:57 12/07/2022 23:48:57 12/07/2022 23:48:57 ADDRESS: [address] [place] [id number] [facility] DOC NOTES: MEDICAL INFORMATION: Prescriptions Given: New Medications [facility]/pharmacy #[id number], [address] [place] [id number], [phone] dicyclomine (Bentyl 10 mg Cap) 1 Capsules By Mouth 4 times a day as needed Pain for 7 Days. Refills: 0. Medications to Continue Taking That Have Changed [facility]/pharmacy #[id number], [address] [place] [id number], [phone] START: ondansetron (Zofran 4 mg Tab) 1 [...] up: With: Address: When: Fernando Clark [address], [address] [place], [place] [phone] [employer] (1) In 3 days 12/10/2022 Comments: [place] With: Address: When: Willie LOZADA [address], [address], [address] [address] Business (1) In 3 days 12/10/2022 Comments: General surgeon [place] With: Address: When: Please return to the ED with any new or worsening symptoms including worsening pain, fevers and chills, worsening nausea and inability to tolerate a liquid diet. With: Address: When: You may follow with the general surgeon recommended to by your primary care provider. You have also been provided with the information for the local [facility] general surgeons. DIAGNOSIS: Cholelithiases; Nausea Normal [facility] ED Note-Physicianon 12-09-19 ED Note-Physician Basic [...] day(s), # 28 cap(s), Refills(s) 0, Pharmacy: [facility]/pharmacy #[id number], 167.6, cm, 12/07/22 21:32:00 EDT, Height/Length Dosing, [...] day(s), # 12 tab(s), Refills(s) 0, Pharmacy: [facility]/pharmacy #[id number], 167.6, cm, 12/07/22 21:32:00 EDT, [...] Clark In 3 days 12/10/2022 EDT [address] [facility], [address] [place] [phone] Business (1) Additional Instructions: General surgeon [place] Willie LOZADA In 3 days 12/10/2022 EDT [address] (more content not included)... Normal [facility] Comment on above: Result Comment: Elec [...] added (diluted fruit juice). ? Eat bland, hlta-ue-ndwzgr foods in small amounts as you are able. These foods include bananas, applesauce, rice, lean meats, toast, and crackers. ? Avoid fluids that contain a lot of sugar or caffeine, such as energy drinks, sports drinks, and soda. ? Avoid alcohol. ? Avoid spicy or fatty foods. General instructions ? Take wpmt-aca-spydath and prescription medicines only as told by your health care provider. ? Drink enough fluid to keep your urine pale yellow. ? Wash your hands often using soap and water. If soap and water are not available, use hand teacher aide. ? Make sure that all people in [...] and drinking to prevent dehydration. ? Take vdie-cxa-ngmfwlp and prescription medicines only as told by [...] 08/20/2006 Document Revised: 12/12/2019 Document Reviewed: 01/28/2019 [employer] Patient Education ? 2020 [employer]. Cholelithiasis Cholelithiasis is a form of gallbladder [...] yellow-green in (more content not included)... Normal [facility] ED Patient Summaryon 023 ED Patient Summary [address] [address] Patient Discharge Instructions Person Information Name: DARLINE FALCON Age: 22 Years Arrival Date: 12/07/2022 21:25:41 Discharge Diagnosis: Cholelithiases; Nausea Primary Care Physician: Madhavi Bustamante MD Provider Information Primary Provider: Yash Medina DO Advanced Door Machine Operator:Lupis Miller PA-C The exam and treatment you received in the Emergency Department were for an urgent problem and are not intended as complete care. It is important that you follow up with a doctor, nurse practitioner, or physician?s assistant professor of drama for ongoing care. If your symptoms become [...] Instructions: With: Address: When: Fernando Clark [address], [address] [place], [place] [phone] Business (1) In 3 days 12/10/2022 Comments: General surgeon in [place] With: Address: When: Willie LOZADA [address], [address], [address] [address] Business (1) In 3 days 12/10/2022 Comments: General surgeon [place] With: Address: When: Please return to the ED with any new or worsening symptoms including worsening pain, fevers and chills, worsening nausea and inability to tolerate a liquid diet. With: Address: When: You may follow with the general surgeon recommended to by your primary care provider. You have also been provided with the information for the local [facility] general surgeons. In the event that this physician does not participate in your insurance network, please consult with your insurance company to find a nearby participating provider. Patient Education Materials: Nausea and Vomiting, Adult; Cholelithiasis A MESSAGE TO ALL PATIENTS REGARDING OPIOIDS PRESCRIPTION OPIOIDS: WHAT YOU NEED TO KNOW Prescription opioids can be used to help relieve nulhowkm-bz-dhkzrw pain and are often prescribed following a [...] Store prescription (more content not included)... Normal [facility] Hep Func Panelon 12-08-2022 Albumin [Mass/Vol] 4.4 g/dL Normal 3.3-5.0 [facility] Comment on above: Performed By: #### 2 802647, 3635566, 1265991, 34016759, 5604853, 2113363 ####[facility] [address] [place] [address] Albumin/Globulin (S) [Mass conc ratio] 1.3 Normal 1.1-2.2 [facility] Comment on above: Performed By: #### 2 656412, 1696826, 7843879, 06985912, 3117591, 7735420 ####[facility] [address] [place] [address] ALP [Catalytic activity/Vol] 65 Int._Unit/L Normal 21-98 [facility] Comment on above: Performed By: #### 2 467407, 4161305, 5365765, 47387688, 0912914, 1945931 ####[facility] [address] [place] [address] ALT No additional P-5'-P [Catalytic activity/Vol] 20 Int._Unit/L Normal 6-46 [facility] Comment on above: Performed By: #### 2 317203, 3308409, 4117050, 22477064, 5946457, 1502384 ####[facility] [address] [place] [address] AST [Catalytic activity/Vol] 19 Int._Unit/L Normal 5-43 [facility] Comment on above: Performed By: #### 2 830375, 3050326, 5697295, 63740815, 3995206, 1383984 ####[facility] [address] [place] [address] Bilirubin [Mass/Vol] 1.7 mg/dL High 0.0-1.1 [facility] Comment on above: Performed By: #### 2 036850, 7958501, 2652207, 31963045, 1963044, 7831805 ####[facility] [address] [place] [address] Bilirubin.direct [Mass/Vol] 0.2 mg/dL Normal 0.1-0.4 [facility] Comment on above: Performed By: #### 2 446719, 8932505, 0764566, 43316507, 0693113, 9411898 ####[address] [address] Bilirubin.indirect [Mass or moles/Vol] 1.5 mg/dL High 0.1-0.9 [facility] Comment on above: Performed By: #### 2 064975, 0868132, 6158343, 30204752, 9535241, 8188690 ####[address] [address] Globulin (S) [Mass/Vol] 3.3 g/dL Normal 1.4-4.0 [facility] Comment on above: Performed By: #### 2 772879, 6203272, 4368994, 71160639, 0120394, 9693644 ####[address] [address] Protein [Mass/Vol] 7.7 g/dL Normal 6.0-7.8 [facility] Comment on above: Performed By: #### 2 408138, 7072619, 8081268, 81548250, 4656105, 7272331 ####[address] [address] Lipase Levelon 12-08-2022 Lipase [Catalytic activity/Vol] 39 U/L Normal 13-58 [facility] Comment on above: Performed By: #### 2 987365, 3510436, 4537099, 08125653, 7875325, 2116545 ####[place] [address] [place] [address] U BetaHcg Qualon 12-08-2022 HCG.beta subunit (U) [Moles/Vol] Negative Normal [facility] Comment on above: Performed By: #### 2 6191408, 30977889, 7345408 ####[facility] [address] [place] [address] UA With Cult Reflexon 2022 Bacteria LM Ql (Urine sed) 1+ /HPF Abnormal Trace [facility] Comment on above: Performed By: #### 2 6992245, 76040374, 8805882 ####[address] [address] Bilirubin Ql (U) Negative Normal Negative [facility] Comment on above: Performed By: #### 2 3503216, 82167964, 9551768 ####[place] [address]57 Clarity (U) CLEAR Normal Clear [facility] Comment on above: Performed By: #### 2 1247391, 03050796, 0023005 ####[address] [address] Color (U) YELLOW Normal Yellow [facility] Comment on above: Performed By: #### 2 7697939, 06013727, 2084749 ####[place] [address]57 Epithelial cells.squamous LM.HPF (Urine sed) [#/Area] 3-4 Normal 0-2 [facility] Comment on above: Performed By: #### 2 5223970, 13253802, 9942601 ####[facility] [address] [place] [address] Glucose Test strip (U) [Mass/Vol] Negative Normal Negative [facility] Comment on above: Performed By: #### 2 1554458, 76738052, 9030132 ####[place] [address] [place] [address] Hemoglobin Ql (U) TRACE Abnormal Negative [facility] Comment on above: Performed By: #### 2 7978002, 53819970, 4302669 ####[address] [address] Ketones (U) [Mass/Vol] Negative Normal Negative [facility] Comment on above: Performed By: #### 2 5005708, 19460330, 8159194 ####[facility] [address] [place] [address] Gentry.plasma/Lithiu m.RBC (Bld) [Mass ratio] 0-3 Normal 0-3 [facility] Comment on above: Performed By: #### 2 2771253, 90246843, 8786778 ####[facility] [address] [place] [address] Nitrite Ql (U) Negative Normal Negative [facility] Comment on above: Performed By: #### 2 8007665, 96914788, 2810855 ####[address] [address] pH (U) 6.0 [pH] Invalid Interpretation Code 5.0-9.0 [facility] Comment on above: Performed By: #### 2 3164971, 70884472, 6534406 ####[address] [address] Protein (U) [Mass/Vol] Negative Normal Negative [facility] Comment on above: Performed By: #### 2 6735826, 73177589, 8373083 ####[address] [address] Specific gravity (U) [Rel density] 1.020 Invalid Interpretation Code 1.005-1.030 [facility] Comment on above: Performed By: #### 2 0565894, 95386728, 5062680 ####[facility] [address] [place] [address] Type of Urine collection method Clean Catch Normal [facility] Comment on above: Performed By: #### 2 5147959, 77897113, 7418682 ####[facility] [address] [place] [address] Urobilinogen Qn (U) 0.2 {Tuan'U}/dL Normal 0.0-1.0 [facility] Comment on above: Performed By: #### 2 6418567, 43070131, 2424459 ####[facility] [address] [place] [address] WBC Auto Ql (U) 2+ Abnormal Negative [facility] Comment on above: Performed By: #### 2 6924146, 64063982, 6514556 ####[facility] [address] [place] [address] WBC LM.HPF (Urine sed) [#/Area] 6-15 Abnormal 0-5 [facility] Comment on above: Performed By: #### 2 8417048, 73623019, 4721478 ####[facility] [address] [place] [address] eGFRon 12-08-2022 GFR/1.73 sq M.predicted among blacks MDRD (S/P/Bld) [Vol rate/Area] mL/min/{1.73_m2} Normal >=59 [facility] Comment on above: Order Comment: Order added by Discern Expert. Result Comment: eGFR is race adjusted. AA=. Performed By: #### 2 016749, 0331016, 4056384, 15983358, 1224103, 9084488 ####[facility] [address] [place] [address] GFR/1.73 sq M.predicted among non-blacks MDRD (S/P/Bld) [Vol rate/Area] mL/min/{1.73_m2} Normal >=59 [facility] Comment on above: Order Comment: Order added by Discern Expert. Result Comment: Bilingual Inside Sales Representative asaf kidney disease could be indicated at eGFR's of less than 60 mL/min/1.73m2. Kidney failure is indicated at less than 15 mL/min/1.73m2. Performed By: #### 2 583629, 3423694, 2372391, 56482368, 7248337, 6258506 ####[facility] [address] [place] [address] Auto Diffon 12-07-2022 Basophils/100 WBC (Bld) 0.4 % Normal 0.0-2.0 [facility] Comment on above: Order Comment: Order Added by Discern Expert. Performed By: #### 2 033926, 3894031, 3647442, 91590663, 4247714, 2509928 ####[place] [address] [place] [address] Basophils/Leukocytes Auto (Bld) [Pure # fraction] 0.0 E9/L Normal 0.0-0.2 [facility] Comment on above: Order Comment: Order Added by Discern Expert. Performed By: #### 2 634606, 6658642, 5019560, 14206281, 0317240, 2444360 ####[address] [address] Eosinophils/100 WBC (Bld) 3.1 % Normal 0.0-8.0 [facility] Comment on above: Order Comment: Order Added by Discern Expert. Performed By: #### 2 510283, 7225358, 7445177, 13527136, 9425788, 0729494 ####[place] [address] [place] [address] Eosinophils/Leukocyte s Auto (Bld) [Pure # fraction] 0.3 E9/L Normal 0.0-0.5 [facility] Comment on above: Order Comment: Order Added by Discern Expert. Performed By: #### 2 701968, 6649032, 7972967, 39926844, 8124366, 7388119 ####[place] [address] [place] [address] Lymphocytes/100 WBC (Bld) 17.3 % Normal 14.0-50.0 [facility] Comment on above: Order Comment: Order Added by Discern Expert. Performed By: #### 2 954751, 4649993, 5841229, 78448202, 7457389, 0546059 ####[place] [address] [place] [address] Lymphocytes/Leukocyte s Auto (Bld) [Pure # fraction] 1.8 E9/L Normal 1.0-4.0 [facility] Comment on above: Order Comment: Order Added by Discern Expert. Performed By: #### 2 020225, 0952888, 8075944, 96046630, 6338948, 0197223 ####[facility] [address] [place] [address] Monocytes/100 WBC (Bld) 5.8 % Normal 4.0-14.0 [facility] Comment on above: Order Comment: Order Added by Discern Expert. Performed By: #### 2 259674, 2030075, 4531300, 58172548, 6652668, 0626939 ####[place] [address] [place] [address] Monocytes/Leukocytes Auto (Bld) [Pure # fraction] 0.6 E9/L Normal 0.2-1.0 [facility] Comment on above: Order Comment: Order Added by Discern Expert. Performed By: #### 2 790405, 5460167, 8758883, 45466392, 1704950, 2582368 ####[place] [address] [place] [address] Neutrophils/100 WBC (Bld) 73.4 % Normal 36.0-75.0 [facility] Comment on above: Order Comment: Order Added by Discern Expert. Performed By: #### 2 513856, 6585894, 9870374, 58042696, 3316058, 0379427 ####[address] [address] Neutrophils/Leukocyte s Auto (Bld) [Pure # fraction] 7.9 E9/L High 2.0-7.5 [facility] Comment on above: Order Comment: Order Added by Discern Expert. Performed By: #### 2 662338, 2248343, 1235172, 28356044, 6604723, 8121345 ####[place] [address] [place] [address] CBC w/ Auto Diffon 3 Erythrocyte distribution width (RBC) [Ratio] 13.9 % Normal 10.9-14.2 [facility] Comment on above: Performed By: #### 2 129693, 1982698, 1658160, 29822166, 4991159, 7660288 ####[address] [address] Hematocrit (Bld) [Volume fraction] 44.1 % Normal 34.0-46.0 [facility] Comment on above: Performed By: #### 2 828262, 0560393, 8183540, 55855252, 5706958, 7433231 ####[address] [address] Hemoglobin (Bld) [Mass/Vol] 15.3 g/dL Normal 12.0-16.0 [facility] Comment on above: Performed By: #### 2 197769, 2314671, 9998751, 16877785, 8467305, 9575335 ####[place] [address] MCH (RBC) [Entitic mass] 30.0 pg Normal 27.0-34.0 [facility] Comment on above: Performed By: #### 2 259539, 5395180, 3679466, 28706495, 4030739, 7854574 ####[address] [address] MCHC (RBC) [Mass/Vol] 34.8 g/dL Normal 31.4-36.0 [facility] Comment on above: Performed By: #### 2 484106, 4935738, 9842125, 91395134, 2879989, 0670869 ####[address] [address] MCV (RBC) [Entitic vol] 86.4 fL Normal 80.0-100.0 [facility] Comment on above: Performed By: #### 2 384940, 6089958, 5404346, 52673861, 1054217, 7393994 ####[address] [address] Platelet mean volume (Bld) [Entitic vol] 8.7 fL Normal 6.4-10.8 [facility] Comment on above: Performed By: #### 2 135028, 2618597, 7252931, 59966542, 6402207, 5222029 ####[facility] [address] [place] [address] Platelets (Bld) [#/Vol] 221.0 E9/L Normal 150.0-500.0 [facility] Comment on above: Performed By: #### 2 738524, 9132463, 9297924, 08750938, 4116141, 6582254 ####[facility] [address] [place] [address] RBC (Bld) [#/Vol] 5.1 E12/L Normal 4.3-5.9 [facility] Comment on above: Performed By: #### 2 004226, 9402757, 5751281, 13698157, 9582660, 1111046 ####[facility] [address] [place] [address] WBC corrected for nucl RBC Auto (Bld) [#/Vol] 10.7 E9/L Normal 4.0-11.0 [facility] Comment on above: Performed By: #### 2 985059, 0133618, 3592724, 79201102, 5202635, 2977550 ####[facility] [address] [place] [address] CHEMISTRYOrdered By: SYSTEM SYSTEM on 12-07-2022 Albumin [...] mmol/L Normal 6 - 16 mEq/L [facility] Remisol AST [Catalytic activity/Vol] 19 [iU]/d Normal [...] rate/Area] mL/min/1.73 m2 Normal >=59mL/min/1. 73 m2 [facility] [place] S GFR/1.73 sq M.predicted among non-blacks MDRD (S/P/Bld) [Vol rate/Area] mL/min/1.73 m2 Normal >=59mL/min/1. 73 m2 [facility] [place] S Globulin (S) [Mass/Vol] 3.3 g/dL [...] for Treatmenton Consent for Treatment [id number] #1.00CD:127 Normal [facility] HEMATOLOGYOrdered By: SYSTEM SYSTEM on 12-07-2022 [...] PM) Normal Negative [facility] UA Auto SS Gentry.plasma/Lithiu m.RBC (Bld) [Mass ratio] 0-3 /HPF Normal [...] Desc Clean Catch (12/07/22 9:55 PM) Normal [facility] UA Auto SS Urobilinogen Qn (U) 0.6459422 {Tuan'U}/dL Normal 0.0 - 1.0 EU/dL FT UA Auto SS WBC Auto Ql (U) 2+ *ABN* (12/07/22 9:55 PM) Invalid Interpretation Code Negative [facility] UA Auto SS WBC LM.HPF (Urine sed) [#/Area] 6-15 /HPF Invalid Interpretation Code 0-5/HPF [facility] UA Auto SS ANGEL w/Reflex if POSon 2022 Nuclear Ab Ql (S) Negative Invalid Interpretation Code Negative [facility] Comment on above: Result Comment: Perf ormed at: [facility] [address] [id number] PhD Octaviano Chen Performed By: #### 1 2883089, 9254457, 77561988, 93635305, 22583665, 2412125, 0337363, 8234163 ####[facility] [address] [place] [address] Auto Diffon 12-04-2022 Basophils/100 WBC (Bld) 0.6 % Normal 0.0-2.0 [facility] Comment on above: Order Comment: Order Added by Discern Expert. Performed By: #### 1 8044138, 9158460, 22642474, 23128536, 49223459, 2049211, 9110009, 3860666 ####[facility] [address] [place] [address] Basophils/Leukocytes Auto (Bld) [Pure # fraction] 0.0 E9/L Normal 0.0-0.2 [facility] Comment on above: Order Comment: Order Added by Discern Expert. Performed By: #### 1 0964755, 0517485, 71024887, 55244993, 43851638, 9766836, 1148432, 2892510 ####[address] [address] [place] [address] Eosinophils/100 WBC (Bld) 5.5 % Normal 0.0-8.0 [facility] Comment on above: Order Comment: Order Added by Discern Expert. Performed By: #### 1 5537850, 0263974, 97099340, 94770500, 60283780, 6692439, 4635029, 5275316 ####[address] [address] Eosinophils/Leukocyte s Auto (Bld) [Pure # fraction] 0.4 E9/L Normal 0.0-0.5 [facility] Comment on above: Order Comment: Order Added by Discern Expert. Performed By: #### 1 8172388, 2122925, 11668129, 68126950, 00239497, 3100273, 6442483, 1868943 ####[address] [address] Lymphocytes/100 WBC (Bld) 32.2 % Normal 14.0-50.0 [facility] Comment on above: Order Comment: Order Added by Discern Expert. Performed By: #### 1 2215855, 1762790, 29892528, 46581529, 66692797, 4065154, 6224974, 5602731 ####[address] [place] [address] Lymphocytes/Leukocyte s Auto (Bld) [Pure # fraction] 2.5 E9/L Normal 1.0-4.0 [facility] Comment on above: Order Comment: Order Added by Discern Expert. Performed By: #### 1 2761981, 7891424, 57303985, 22188264, 17432137, 4214827, 5793204, 4569730 ####[address] [place] [address] Monocytes/100 WBC (Bld) 6.7 % Normal 4.0-14.0 [facility] Comment on above: Order Comment: Order Added by Discern Expert. Performed By: #### 1 2700400, 0224771, 48333620, 14801901, 30624671, 4815386, 5569276, 7014260 ####[address] [place] [address] Monocytes/Leukocytes Auto (Bld) [Pure # fraction] 0.5 E9/L Normal 0.2-1.0 [facility] Comment on above: Order Comment: Order Added by Discern Expert. Performed By: #### 1 6778533, 8860827, 77950127, 17329555, 29380112, 9488938, 1360415, 6664057 ####[address] [address] [place] [address] Neutrophils/100 WBC (Bld) 55.0 % Normal 36.0-75.0 [facility] Comment on above: Order Comment: Order Added by Discern Expert. Performed By: #### 1 8878382, 6730940, 78531115, 87411843, 44947176, 8889916, 7552457, 5845266 ####[address] [place] [address] Neutrophils/Leukocyte s Auto (Bld) [Pure # fraction] 4.2 E9/L Normal 2.0-7.5 [facility] Comment on above: Order Comment: Order Added by Discern Expert. Performed By: #### 1 1755874, 4174050, 36468593, 25948790, 59272750, 9239599, 9371465, 0164954 ####[address] [place] [address] CBC w/ Auto Diffon 3 Erythrocyte distribution width (RBC) [Ratio] 13.9 % Normal 10.9-14.2 [facility] Comment on above: Performed By: #### 1 4043024, 9519271, 62361112, 65705005, 76621518, 9192133, 9451457, 3595557 ####[facility] [address] [place] [address] Hematocrit (Bld) [Volume fraction] 41.1 % Normal 34.0-46.0 [facility] Comment on above: Performed By: #### 1 6125155, 5641523, 56919369, 18280694, 93680404, 1115463, 4129309, 7975092 ####[address] [place] [address] Hemoglobin (Bld) [Mass/Vol] 14.2 g/dL Normal 12.0-16.0 [facility] Comment on above: Performed By: #### 1 8487005, 0141866, 84593967, 25515749, 42459287, 4358336, 6878710, 2904365 ####[address] [place] [address] MCH (RBC) [Entitic mass] 30.1 pg Normal 27.0-34.0 [facility] Comment on above: Performed By: #### 1 1220787, 6395384, 23907683, 17391643, 60782042, 6218248, 8411974, 9234772 ####[place] [address] [place] [address] MCHC (RBC) [Mass/Vol] 34.6 g/dL Normal 31.4-36.0 [facility] Comment on above: Performed By: #### 1 9789413, 5572369, 21999493, 69715539, 14051140, 9406445, 0747556, 2954552 ####[address] [place] [address] MCV (RBC) [Entitic vol] 87.1 fL Normal 80.0-100.0 [facility] Comment on above: Performed By: #### 1 5823303, 8259983, 77729773, 86458873, 65464303, 5392136, 0978638, 5877567 ####[facility] [address] [place] [address] Platelet mean volume (Bld) [Entitic vol] 8.4 fL Normal 6.4-10.8 [facility] Comment on above: Performed By: #### 1 8910383, 4532948, 86785736, 38774323, 54620273, 6308588, 5601109, 5420508 ####[facility] [address] [place] [address] Platelets (Bld) [#/Vol] 220.0 E9/L Normal 150.0-500.0 [facility] Comment on above: Performed By: #### 1 1092565, 3631788, 39881432, 73751764, 72963399, 5092768, 9103636, 2147004 ####[place] [address] [place] [address] RBC (Bld) [#/Vol] 4.7 E12/L Normal 4.3-5.9 [facility] Comment on above: Performed By: #### 1 7459056, 9372947, 05283316, 86326999, 15507642, 4118636, 4963853, 0251167 ####[address] [place] [address] WBC corrected for nucl RBC Auto (Bld) [#/Vol] 7.7 E9/L Normal 4.0-11.0 [facility] Comment on above: Performed By: #### 1 6439327, 0105776, 63003423, 26975602, 59215699, 4405194, 0707524, 3959489 ####[address] [place] [address] CHEMISTRYOrdered By: SYSTEM SYSTEM on 12-04-2022 Albumin [...] 12-04-2022 Albumin [Mass/Vol] 4.1 g/dL Normal 3.3-5.0 [facility] Comment on above: Performed By: #### 1 8343348, 8476186, 85385781, 55986244, 49812971, 3745716, 2427863, 2245281 ####[facility] [address] [place] [address] Albumin/Globulin (S) [Mass conc ratio] 1.4 Normal 1.1-2.2 [facility] Comment on above: Performed By: #### 1 8471907, 8853558, 45961434, 87383920, 72891308, 3569665, 1483753, 7510123 ####[facility] [address] [place] [address] ALP [Catalytic activity/Vol] 60 Int._Unit/L Normal 21-98 [facility] Comment on above: Performed By: #### 1 1995473, 7812593, 23414111, 22183354, 77766490, 1311097, 0951482, 5992853 ####[facility] [address] [place] [address] ALT No additional P-5'-P [Catalytic activity/Vol] 21 Int._Unit/L Normal 6-46 [facility] Comment on above: Performed By: #### 1 3261621, 0693144, 59566941, 67172522, 07324952, 3800051, 4744428, 6241417 ####[facility] [address] [place] [address] Anion gap [Moles/Vol] 7 mmol/L Normal 6-16 [facility] Comment on above: Performed By: #### 1 3727291, 7041483, 75669182, 85026663, 71715402, 5850638, 7364603, 5689742 ####[facility] [address] [place] [address] AST [Catalytic activity/Vol] 17 Int._Unit/L Normal 5-43 [facility] Comment on above: Performed By: #### 1 3653558, 9034010, 84710714, 16757099, 14837315, 3103192, 2952435, 9593160 ####[facility] [address] [place] [address] Bilirubin [Mass/Vol] 1.3 mg/dL High 0.0-1.1 [facility] Comment on above: Performed By: #### 1 1095128, 2946869, 31579652, 43360686, 99418699, 5501875, 0606120, 7417427 ####[facility] [address] [place] [address] Calcium [Mass/Vol] 8.8 mg/dL Low 8.9-11.1 [facility] Comment on above: Performed By: #### 1 2116505, 6140489, 60875950, 19498775, 41566970, 0289562, 4741276, 4762941 ####[facility] [address] [place] [address] Chloride [Moles/Vol] 107 mmol/L Normal 101-111 [facility] Comment on above: Performed By: #### 1 8216326, 5822824, 77796646, 00423898, 35537351, 4095721, 5210949, 9225257 ####[facility] [address] [place] [address] CO2 [Moles/Vol] 27 mmol/L Normal 21-31 [facility] Comment on above: Performed By: #### 1 8414913, 6019221, 53442337, 20156015, 49992650, 8776152, 3199424, 0370183 ####[facility] [address] [place] [address] Creatinine [Mass/Vol] 0.7 mg/dL Normal 0.5-1.3 [facility] Comment on above: Performed By: #### 1 8409317, 5264103, 11831403, 34514854, 62481269, 5996744, 7631543, 3523280 ####[facility] [address] [place] [address] Globulin (S) [Mass/Vol] 3.0 g/dL Normal 1.4-4.0 [facility] Comment on above: Performed By: #### 1 0773834, 0272192, 92276733, 01600870, 40965433, 1852646, 5293279, 8547604 ####[facility] [address] [place] [address] Glucose [Mass/Vol] 86 mg/dL Normal 55-199 [facility] Comment on above: Result Comment: If t his glucose result represents a fasting glucose, interpretation should refer to the following reference range: 55-99 mg/dL Performed By: #### 1 1572478, 2053523, 62198024, 73124082, 01043157, 5239461, 2879971, 2350057 ####[facility] [address] [place] [address] Potassium [Moles/Vol] 3.7 mmol/L Normal 3.5-5.3 [facility] Comment on above: Performed By: #### 1 1427676, 7576901, 78482115, 75940508, 49258338, 0990437, 0604535, 2035208 ####[facility] [address] [place] [address] Protein [Mass/Vol] 7.1 g/dL Normal 6.0-7.8 [facility] Comment on above: Performed By: #### 1 4039551, 5199534, 45112936, 01127491, 93227488, 4374448, 9539122, 2394327 ####[facility] [address] [place] [address] Sodium [Moles/Vol] 137 mmol/L Normal 135-145 [facility] Comment on above: Performed By: #### 1 2369855, 6804728, 05806345, 77787910, 80120559, 9049103, 1253310, 6780454 ####[facility] [address] [place] [address] Urea nitrogen [Mass/Vol] 10 mg/dL Normal 5-21 [facility] Comment on above: Performed By: #### 1 5432070, 0962120, 14429974, 14165663, 93887824, 5792131, 5055864, 2840617 ####[facility] [address] [place] [address] Urea nitrogen/Creatinine [Mass ratio] 14 No Units Normal 10-20 [facility] Comment on above: Performed By: #### 1 1318661, 2948996, 28668831, 67979931, 45428035, 4274107, 0591971, 6246129 ####[facility] [address] [place] [address] CRPon 12-04-2022 CRP [Mass/Vol] 0.6 mg/dL Normal <=1.9 [facility] Comment on above: Performed By: #### 1 2166030, 6186658, 13159745, 73793609, 64140168, 9603307, 6553770, 3386063 ####[facility] [address] [place] [address] Consent for Treatmenton Consent for Treatment [id number] #1.00CD:127 Normal [facility] HEMATOLOGYOrdered By: SYSTEM SYSTEM on 12-04-2022 [...] 220.0 E9/L Normal 150.0 - 500.0 E9/L [facility] RBC (Bld) [#/Vol] 4.7 E12/L Normal 4.3 - 5.9 E12/L [facility] Sed Rate Automated 10 mm/h Normal 0 - 34 mm/hr [facility] WBC corrected for nucl RBC Auto (Bld) [#/Vol] 7.7 E9/L Normal 4.0 - 11.0 E9/L [facility] Physician Orderon 12-04-2022 Physician Order [id number]# 1.00CD:127 Normal [facility] Physician Order [id number]#1.00CD:127 Normal [facility] Sed Rate Automatedon 023 Sed Rate Automated 10 mm/hr Normal 0-34 [facility] Comment on above: Performed By: #### 1 1047220, 9503597, 46143427, 67572123, 22052278, 4394356, 3840389, 6829431 ####[facility] [address] [place] [address] TSH With T4fr Reflexon 12-04 TSH Qn 1.11 m[IU]/L Normal 0.34-5.60 [facility] Comment on above: Performed By: #### 1 7072435, 5527919, 07372728, 51676881, 89688108, 6107232, 8512181, 0618490 ####[facility] [address] [place] [address] US Abdomen, Limitedon 2022 US Abdomen, Limited [...] MD Transcribed by: LITA Technologist: BREONNA Jason [facility] eGFRon 12-04-2022 GFR/1.73 sq M.predicted among blacks MDRD (S/P/Bld) [Vol rate/Area] mL/min/{1.73_m2} Normal >=59 [facility] Comment on above: Order Comment: Order added by Discern Expert. Result Comment: eGFR is race adjusted. AA=. Performed By: #### 1 7338059, 3784080, 97718754, 31523646, 91971264, 0884850, 3628406, 9604297 ####[facility] [address] [place] [address] GFR/1.73 sq M.predicted among non-blacks MDRD (S/P/Bld) [Vol rate/Area] mL/min/{1.73_m2} Normal >=59 [facility] Comment on above: Order Comment: Order added by Discern Expert. Result Comment: Bilingual Inside Sales Representative asaf kidney disease could be indicated at eGFR's of less than 60 mL/min/1.73m2. Kidney failure is indicated at less than 15 mL/min/1.73m2. Performed By: #### 1 8112540, 3992515, 04148933, 90786188, 31806156, 3218477, 4705151, 2562306 ####[facility] [address] [place] [address] Physician Orderon 11-29-2022 Physician Order [id number] #1.00CD:127 Normal [facility] PAP ACOG PANEL 2: 21 to 29on 10-31-2022 . . Normal [facility] Comment on above: Performed By: #### R PRQ #### [facility] [address] [place] [address] Dr. Jerrod Bettencourt Age Gdln ACOG Testing 21-[address] [facility] Comment on above: Performed By: #### R PRQ #### [facility] [address] [address] [address] Jerrod Bettencourt DIAGNOSIS: Comment Abnormal [facility] Comment on above: Result Comment: EPIT HELIAL CELL ABNORMALITY. LOW GRADE SQUAMOUS INTRAEPITHELIAL LESION (LSIL). Performed By: #### R PRQ #### [facility] [address] [place] [address] Dr. Jerrod Bettencourt Electronically signed by: Comment Normal [facility] Comment on above: Result Comment: Rachna Navarrete MD, Pathologist Performed By: #### R PRQ #### [facility] [address] [place] [address] Dr. Jerrod Bettencourt Methodology: Comment [facility] Comment on above: Result Comment: This liquid based ThinPrep(R) pap test was screened with the use of an image guided system. Performed By: #### R PRQ #### [facility] [address] [place] [address] Dr. Jerrod Bettencourt Note: Comment Normal [facility] Comment on above: Result Comment: The Pap smear is a screening test designed to aid in the detection of premalignant and malignant conditions of the uterine cervix. It is not a diagnostic procedure and should not be used as the sole means of detecting cervical cancer. Both false-positive and false-negative reports do occur. . Performed By: #### R PRQ #### [facility] [address] [place] [address] Dr. Jerrod Bettencourt Pathologist Provided ICD10 Comment Normal [facility] Comment on above: Result Comment: [id number] Performed By: #### R PRQ #### [facility] [address] [place] [address] Dr. Jerrod Bettencourt Performed by: Comment Normal [facility] Comment on above: Result Comment: Janet Abreu, Hunter Guide (ASCP) Performed By: #### R PRQ #### [facility] [address] [place] [address] Dr. Jerrod Bettencourt Recommendation: Comment Abnormal [facility] Comment on above: Result Comment: Sugg est follow up as clinically appropriate. Performed By: #### R PRQ #### [facility] [address] [place] [address] Dr. Jerrod Bettencourt Reflex Criteria: Comment Normal [facility] Comment on above: Result Comment: The HPV DNA reflex criteria were not met with this specimen result therefore, no HPV testing was performed. . Performed By: #### R PRQ #### [facility] [address] [place] [address] Dr. Jerrod Bettencourt Specimen adequacy: Comment Normal [facility] Comment on above: Result Comment: Sati sfactory for evaluation. Endocervical and/or squamous metaplastic cells (endocervical component) are present. Performed By: #### R PRQ #### [facility] [address] [place] [address] Dr. Jerrod Bettencourt CBC AUTO DIFFon 06-04-2022 BASO # 0.1 103/ul Normal 0.0-0.[address] [facility] Comment on above: Performed By: #### R PRQ #### [facility] [address] [place] [address] Dr. Jerrod Bettencourt Basophils/100 WBC (Bld) 0.3 % Normal 0.2-2.[address] [facility] Comment on above: Performed By: #### R PRQ #### [facility] [address] [place] [address] Dr. Jerrod Bettencourt EO # 0.1 103/ul Normal 0.0-0.[address] [facility] Comment on above: Performed By: #### R PRQ #### [facility] [address] [place] [address] Dr. Jerrod eBttencourt Eosinophils/100 WBC (Bld) 0.8 % Critically low 0.9-7.[address] [facility] Comment on above: Performed By: #### R PRQ #### [facility] [address] [address] [address] Jerrod Bettencourt Erythrocyte distribution width (RBC) [Ratio] 13.2 % Normal 11.0-15.[address] [facility] Comment on above: Performed By: #### R PRQ #### [facility] [address] [place] [address] Dr. Jerrod Bettencourt Hematocrit (Bld) [Volume fraction] 27.1 % Critically low 36.0-48.[address] [facility] Comment on above: Performed By: #### R PRQ #### [facility] [address] [place] [address] Dr. Jerrod Bettencourt Hemoglobin (Bld) [Mass/Vol] 9.5 g/dL Critically low 12.0-16.[address] [facility] Comment on above: Performed By: #### R PRQ #### [facility] [address] [place] [address] Dr. Jerrod Bettencourt IG # 0.08 10e3/ul Critically high 0.00-0.03 [facility] Comment on above: Performed By: #### R PRQ #### [facility] [address] [place] [address] Dr. Jerrod Bettencourt IG % 0.6 % Critically high 0.0-0.5 [facility] Comment on above: Performed By: #### R PRQ #### [facility] [address] [place] [address] Dr. Jerrod Bettencourt LYMPH # 2.0 103/ul Normal 1.2-3.[address] [facility] Comment on above: Performed By: #### R PRQ #### [facility] [address] [place] [address] Dr. Jerrod Bettencourt Lymphocytes/100 WBC (Bld) 14.0 % Critically low 20.5-60.[address] [facility] Comment on above: Performed By: #### R PRQ #### [facility] [address] [place] [address] Dr. Jerrod Bettencourt MANUAL DIFF REQ NO Normal [facility] Comment on above: Performed By: #### R PRQ #### [facility] [address] [address] [address] Jerrod Bettencourt MCH (RBC) [Entitic mass] 32.9 pg Normal 26.7-34.[address] [facility] Comment on above: Performed By: #### R PRQ #### [facility] [address] [place] [address] Dr. Jerrod Bettencourt MCHC (RBC) [Mass/Vol] 35.1 g/dL Normal 29.9-35.[address] [facility] Comment on above: Performed By: #### R PRQ #### [facility] [address] [address] [address] Jerrod Bettencourt MCV (RBC) [Entitic vol] 93.8 fL Normal 81.0-99.[address] [facility] Comment on above: Performed By: #### R PRQ #### [facility] [address] [place] [address] Dr. Jerrod Bettencourt MONO # 1.1 103/ul Critically high 0.3-0.8 [facility] Comment on above: Performed By: #### R PRQ #### [facility] [address] [place] [address] Dr. Jerrod Bettencourt Monocytes/100 WBC (Bld) 7.9 % Normal 1.7-12.[address] [facility] Comment on above: Performed By: #### R PRQ #### [facility] [address] [place] [address] Dr. Jerrod Bettencourt NEUT # 11.1 103/ul Critically high 1.4-6.5 [facility] Comment on above: Performed By: #### R PRQ #### [facility] [address] [place] [address] Dr. Jerrod Bettencourt Neutrophils/100 WBC (Bld) 76.4 % Critically high 43.0-75.[address] [facility] Comment on above: Performed By: #### R PRQ #### [facility] [address] [place] [address] Dr. Jerrod Bettencourt Platelet mean volume (Bld) [Entitic vol] 10.6 fL Normal 9.5-13.[address] [facility] Comment on above: Performed By: #### R PRQ #### [facility] [address] [address] [address] Jerrod Bettencourt PLT 147 103/ul Critically low 150-450 [facility] Comment on above: Performed By: #### R PRQ #### [facility] [address] [address] [address] Jerrod Bettencourt RBC 2.89 106/ul Critically low 4.20-5.40 [facility] Comment on above: Performed By: #### R PRQ #### [facility] [address] [address] [address] Jerrod Bettencourt WBC 14.5 103/ul Critically high 4.0-11.0 [facility] Comment on above: Performed By: #### R PRQ #### [facility] [address] [address] [address] Jerrod Bettencourt CBC AUTO DIFFon 06-02-2022 BASO # 0.1 103/ul Normal 0.0-0.[address] [facility] Comment on above: Performed By: #### C BC ####[facility] [address] [address]DrMoises Bettencourt Basophils/100 WBC (Bld) 0.4 % Normal 0.2-2.[address] [facility] Comment on above: Performed By: #### C BC ####[facility] [address] [address]Dr. Jerrod Bettencourt EO # 0.4 103/ul Normal 0.0-0.[address] [facility] Comment on above: Performed By: #### C BC ####[facility] [address]DrMoises Bettencourt Eosinophils/100 WBC (Bld) 3.5 % Normal 0.9-7.[address] [facility] Comment on above: Performed By: #### C BC ####[facility] [address]DrMoises Bettencourt Erythrocyte distribution width (RBC) [Ratio] 12.9 % Normal 11.0-15.[address] [facility] Comment on above: Performed By: #### C BC ####[facility] [address] [address]Dr. Jerrod Bettencourt Hematocrit (Bld) [Volume fraction] 37.0 % Normal 36.0-48.[address] [facility] Comment on above: Performed By: #### C BC ####[facility] [address] [address]DrMoises Bettencourt Hemoglobin (Bld) [Mass/Vol] 13.3 g/dL Normal 12.0-16.[address] [facility] Comment on above: Performed By: #### C BC ####[facility] [address] [place], [place] [address]DrMoises Bettencourt IG # 0.10 10e3/ul Critically high 0.00-0.03 [facility] Comment on above: Performed By: #### C BC ####[facility] [address] [place], [place] [address]DrMoises Bettencourt IG % 0.8 % Critically high 0.0-0.5 [facility] Comment on above: Performed By: #### C BC ####[facility] [address] [place], [place] [address]DrMoises Bettencourt LYMPH # 2.6 103/ul Normal 1.2-3.8 [facility] Comment on above: Performed By: #### C BC ####[facility] [address] [place], [place] [address]DrMoises Bettencourt Lymphocytes/100 WBC (Bld) 21.6 % Normal 20.5-60.[address] [facility] Comment on above: Performed By: #### C BC ####[facility] [address] [place], [place] [address]DrMoises Bettencourt MANUAL DIFF REQ NO Normal [facility] Comment on above: Performed By: #### C BC ####[facility] [address] [address]DrMoises Bettencourt MCH (RBC) [Entitic mass] 32.8 pg Normal 26.7-34.0 [facility] Comment on above: Performed By: #### C BC ####[facility] [address] [address]DrMoises Bettencourt MCHC (RBC) [Mass/Vol] 35.9 g/dL Critically high 29.9-35.2 [facility] Comment on above: Performed By: #### C BC ####[facility] [address] [place], [place] [address]DrMoises Bettencourt MCV (RBC) [Entitic vol] 91.1 fL Normal 81.0-99.0 [facility] Comment on above: Performed By: #### C BC ####[facility] [address] [place], [place] [address]DrMoises Bettencourt MONO # 1.0 103/ul Critically high 0.3-0.8 [facility] Comment on above: Performed By: #### C BC ####[facility] [address] [place], [place] [address]DrMoises Bettencourt Monocytes/100 WBC (Bld) 8.2 % Normal 1.7-12.0 [facility] Comment on above: Performed By: #### C BC ####[facility] [address] [place], [place] [address]DrMoises Bettencourt NEUT # 8.0 103/ul Critically high 1.4-6.5 [facility] Comment on above: Performed By: #### C BC ####[facility] [address] [place], [place] [address]DrMoises Bettencourt Neutrophils/100 WBC (Bld) 65.5 % Normal 43.0-75.0 [facility] Comment on above: Performed By: #### C BC ####[facility] [address] [place], [place] [address]DrMoises Bettencourt Platelet mean volume (Bld) [Entitic vol] 12.1 fL Normal 9.5-13.5 [facility] Comment on above: Performed By: #### C BC ####[facility] [address] [place], [place] [address]DrMoises Bettencourt PLT 181 103/ul Normal 150-450 [facility] Comment on above: Performed By: #### C BC ####[facility] [address] [place], [place] [address]Ea. Jerrod Bettencourt RBC 4.06 106/ul Critically low 4.20-5.40 [facility] Comment on above: Performed By: #### C BC ####[facility] [address] [place], [place] [address]Iv. Jerrod Bettencourt WBC 12.2 103/ul Critically high 4.0-11.0 [facility] Comment on above: Performed By: #### C BC ####[facility] [address] [place], [place] [address]JqMoises Jerrod Bettencourt Covid-19 PCR (CVDTB)on 05-06 SARS-CoV-2 (COVID-19) RNA KATHY+probe Ql (Unsp spec) Not detected Normal NOT DETECTED [facility] Comment on above: Result Comment: When diagnostic [...] for this test is supported by the [employer] of Health and Human Service's declaration that [...] used). Performed By: #### C VDTBH #### [facility] [address] [place], [place] [address] Dr. Jerrod Bettencourt DRUG SCREEN RAPID (URINE)on 06-02-2022 AMP Negative Normal NEGATIVE [facility] Comment on above: Performed By: #### D RUGRPD ####[facility] [address] [address]Dr. Tayloroseas Bettencourt BAR Negative Normal NEGATIVE [facility] Comment on above: Performed By: #### D RUGRPD ####[facility] [address] [address]Dr. Jerrod Bettencourt BUP Negative Normal NEGATIVE [facility] Comment on above: Performed By: #### D RUGRPD ####[facility] [address] [address]Dr. Jerrod Bettencourt BZO Negative Normal NEGATIVE [facility] Comment on above: Performed By: #### D RUGRPD ####[facility] [address] [place], [place] [address]Dr. Jerrod Bettencourt VERNA Negative Normal NEGATIVE [facility] [facility] Comment on above: Performed By: #### D RUGRPD ####[facility] [id number] [place], [place] [address]Dr. Jerrod Bettencourt CUT-OFFS SEE BELOW Normal [facility] Comment on above: Result Comment: AMP (Amphetamine): 500ng/mL, BAR (Barbituates): 200 ng/mL, BZO (Benzodiazepines): 150 ng/mL, BUP (Buprenorphine): 10 ng/mL, VERNA (Cocaine): 150 ng/mL, mAMP (Methamphetamine): 500 ng/mL, MTD (Methadone): 200 ng/mL, OPI (Opiates): 100 ng/mL, OXY (Oxycodone): 100 ng/mL, PCP (Phencyclidine): 25 ng/mL, PPX (Propoxyphene): 300 ng/mL, THC (Cannabinoids): 50 ng/mL, TCA (Trycyclic Antidepressants): 300 ng/mL Performed By: #### D RUGRPD ####[facility] [id number] [place], [place] [id number]. Jerrod Bettencourt DRUG CUT HEADER DRUG CLASS TEST SYSTEM CUT-OFF CONCENTRATIONS ARE FOLLOWS: Normal [facility] Comment on above: Performed By: #### D RUGRPD ####[facility] [id number] [place], [place] [id number]. Jerrod Bettencourt mAMP Negative Normal NEGATIVE [facility] Comment on above: Performed By: #### D RUGRPD ####[facility] [id number] [place] [address]Dr. Jerrod Bettencourt MTD Negative Normal NEGATIVE The [facility] Comment on above: Performed By: #### D RUGRPD ####[facility] [id number] [place] [id number]. Yioseas Bettencourt OPI Negative Normal NEGATIVE The [facility] Comment on above: Performed By: #### D RUGRPD ####[facility] [id number] [address]Dr. Yilan Bettencourt OXY Negative Normal NEGATIVE The [facility] Comment on above: Performed By: #### D RUGRPD ####[facility] [id number] [place] [address]Dr. Jerrod Bettencourt PCP Negative Normal NEGATIVE The [facility] Comment on above: Performed By: #### D RUGRPD ####[facility] [id number] [place] [address]Dr. Jerrod Bettencourt PPX Negative Normal NEGATIVE The [facility] Comment on above: Performed By: #### D RUGRPD ####[facility] [id number] [place] [address]Dr. Jerrod Bettencourt TCA Negative Normal NEGATIVE The [facility] Comment on above: Performed By: #### D RUGRPD ####[facility] [id number] [place] [address]Dr. Jerrod Bettencourt THC Negative Normal NEGATIVE The [facility] Comment on above: Performed By: #### D RUGRPD ####[facility] [id number] [place] [address]Dr. Jerrod Bettencourt TYPE AND SCREENon 06-02-2022 TYPE AND SCREEN Negative Normal [facility] Comment on above: Performed By: #### T NS #### [facility] Laboratory [address] [address] [address] Jerrod Bettencourt US PREG BIOPHY W [...] by: MELITA MARTINEZ Date: 2022-06-01 16:[address] [facility] US PREG BIOPHY W NON STRESSo [...] by: MELITA MARTINEZ Date: 2022-05-24 17:37 Normal [facility] PREG GROWTHon 05-24-2022 US PREG GROWTH EXAMINATION: [...] MELITA MARTINEZ Date: 2022-05-24 17:19 Normal [facility] US PREG BIOPHY W NON STRESSo n [...] by: ELIAS YOUNG Date: 2022-05-17 16:[address] [facility] GROUP B STREP CULTUREon 05-04 S. agalactiae Ag Ql (Unsp spec) Culture Observations: NEGATIVE FOR GROUP B STREPTOCOCCUS. Normal [facility] Comment on above: Performed By: #### G BSCX ####[facility] [id number] [place] [id number]. Jerrod Bettencourt US PREG BIOPHY W NON [...] by: MELITA MARTINEZ Date: 2022-05-11 16:[address] [facility] US PREG GROWTHon 05-09-2022 US PREG [...] by: ELIAS YOUNG Date: 2022-05-09 19:[address] [facility] US PREG BIOPHY W NON STRESSo [...] by: ELIAS YOUNG Date: 2022-05-03 09:[address] [facility] US PREG BIOPHY W NON STRESSo [...] by: MELITA MARTINEZ Date: 2022-04-27 16:[address] [facility] US PREG BIOPHY W NON STRESSo [...] by: MELITA MARTINEZ Date: 2022-04-20 19:[address] [facility] US PREG GROWTHon 04-11-2022 US PREG [...] by: ELIAS YOUNG Date: 2022-04-11 18:[address] [facility] GLUCOSE - 1HRon 03-21-2022 Glucose [Mass/Vol] 137 mg/dL Critically high 74-106 T [facility] Comment on above: Performed By: #### G 1 ####[facility] [address] [place] [id number]. Jerrod Bettencourt HEMOGRAM AND PLATELon 2021 Hematocrit (Bld) [Volume fraction] 36.1 % Normal 36.0-48.[address] [facility] Comment on above: Performed By: #### H H ####[facility] [id number] [address]Dr. Jerrod Bettencourt Hemoglobin (Bld) [Mass/Vol] 12.4 g/dL Normal 12.0-16.0 [facility] Comment on above: Performed By: #### H H ####[facility] [id number] [place] [address]Dr. Jerrod Bettencourt MCH (RBC) [Entitic mass] 32.6 pg Normal 26.7-34.0 [facility] Comment on above: Performed By: #### H H ####[facility] [id number] [place], [place] [address]Dr. Jerrod Btetencourt MCHC (RBC) [Mass/Vol] 34.3 g/dL Normal 29.9-35.2 [facility] Comment on above: Performed By: #### H H ####[facility] [id number] [place], [place] [address]Dr. Jerrod Bettencourt MCV (RBC) [Entitic vol] 95.0 fL Normal 81.0-99.0 [facility] Comment on above: Performed By: #### H H ####[facility] [address] [place] [address]Dr. Jerrod Bettencourt PLT 203 103/ul Normal 150-450 [facility] Comment on above: Performed By: #### H H ####[facility] [address]kesls[address] [place] [address]Dr. Jerrod Bettencourt RBC 3.80 106/ul Critically low 4.20-5.40 [facility] Comment on above: Performed By: #### H H ####[facility] [address] [place] [address]Dr. Jerrod Bettencourt WBC 10.9 103/ul Normal 4.0-11.0 [facility] Comment on above: Performed By: #### H H ####[facility] [address] [place] [address]Dr. Jerrod Bettencourt TYPE AND SCREENon 03-21-2022 TYPE AND SCREEN Negative Normal [facility] Comment on above: Performed By: #### T NS ####[facility] [id number] [place] [address]Dr. Jerrod Bettencourt CULTURE URINEon 02-20-2022 CULTURE URINE Culture Observations: LIGHT GROWTH OF MIXED GENITAL PALMER. NO POTENTIAL PATHOGENS SEEN. Normal [facility] Comment on above: Performed By: #### U RCX #### [facility] Laboratory [address] [place] [address] Dr. Jerrod Bettencourt UA RANDOM W/MICROSCOPICon BACTERIA MODERATE Abnormal NONE SEEN [facility] Comment on above: Performed By: #### R PRQ #### [facility] Laboratory [address] [place] [address] Dr. Jerrod Bettencourt Bilirubin Ql (U) Negative Normal NEGATIVE [facility] Comment on above: Performed By: #### R PRQ #### [facility] Laboratory [address] [place] [address] Dr. Jerrod Bettencourt CAST SEEN Abnormal NONE SEEN [facility] Comment on above: Performed By: #### R PRQ #### [facility] Laboratory [address] [place] [address] Dr. Jerrod Bettencourt Clarity (U) CLEAR Normal CLEAR [facility] Comment on above: Performed By: #### R PRQ #### [facility] Laboratory [address] [place] [address] Dr. Jerrod Bettencourt Color (U) LT. YELLOW Normal YELLOW [facility] Comment on above: Performed By: #### R PRQ #### [facility] Laboratory [address] [place] [address] Dr. Jerrod Bettencourt Crystals LM Nom (Urine sed) NONE SEEN Normal NONE SEEN [facility] Comment on above: Performed By: #### R PRQ #### [facility] Laboratory [address] [place] [address] Dr. Jerrod Bettencourt Epithelial cells LM Ql (Urine sed) MANY Abnormal NONE SEEN /RARE [facility] Comment on above: Performed By: #### R PRQ #### [facility] Laboratory [address] [address] [address] Jerrod Bettencourt Glucose Ql (U) Negative Normal NEGATIVE [facility] Comment on above: Performed By: #### R PRQ #### [facility] Laboratory [address] [address] [address] Jerrod Bettencourt Hemoglobin Ql (U) Negative Normal NEGATIVE [facility] Comment on above: Performed By: #### R PRQ #### [facility] Laboratory [address] [address] [address] Jerrod Bettencourt HYALINE CAST FEW Normal [facility] Comment on above: Performed By: #### R PRQ #### [facility] Laboratory [address] [place] [address] Dr. Jerrod Bettencourt Ketones Ql (U) Negative Normal NEGATIVE [facility] Comment on above: Performed By: #### R PRQ #### [facility] Laboratory [address] [place] [address] Dr. Jerrod Bettencourt LEUKOCYTES LARGE Abnormal NEGATIVE [facility] Comment on above: Performed By: #### R PRQ #### [facility] Laboratory [address] [address] [address] Jerrod Bettencourt MUCOUS TRACE Abnormal NONE SEEN [facility] Comment on above: Performed By: #### R PRQ #### [facility] Laboratory [address] [address] [address] Jerrod Bettencourt Nitrite Ql (U) Negative Normal NEGATIVE [facility] Comment on above: Performed By: #### R PRQ #### [facility] Laboratory [address] [address] [address] Jerrod Bettencourt pH (U) 7.5 [pH] Normal 5-9 [facility] Comment on above: Performed By: #### R PRQ #### [facility] Laboratory [address] [address] [address] Jerrod Bettencourt RBC 0-2 Normal 0-2 [facility] Comment on above: Performed By: #### R PRQ #### [facility] Laboratory [address] [address] [address] Jerrod Bettencourt SPEC GRAVITY 1.020 Normal 1.005-<=1.025 [facility] Comment on above: Performed By: #### R PRQ #### [facility] Laboratory [address] [address] [address] Jerrod Bettencourt UA PROTEIN Negative Normal NEGATIVE/ TRACE [facility] Comment on above: Performed By: #### R PRQ #### [facility] Laboratory [address] [address] [address] Jerrod Bettencourt Urobilinogen Qn (U) 0.2 {Tuan'U}/dL Normal 0.2 - 1. 0 [facility] Comment on above: Performed By: #### R PRQ #### [facility] Laboratory [address] [place] [address] Dr. Jerrod Bettencourt WBC 5-10 Abnormal NONE SEEN [facility] Comment on above: Performed By: #### R PRQ #### [facility] Laboratory [address] [address] [address] Jerrod Bettencourt US PREG ANATOMY SINGLEon [...] MELITA MARTINEZ Date: 2022-01-23 09:58 Normal [facility] AFP MATERNAL FOR SPINA BIFID Aon 01-19-2022 AFP MoM 0.62 Normal [facility] Comment on above: Performed By: #### A FPMAT ####[facility] [address] [place] [address]Dr. Jerrod Bettencourt AFP Value 32.3 ng/mL Normal [facility] Comment on above: Performed By: #### A FPMAT ####[facility] [address] [place] [address]Dr. Jerrod Bettencourt AFP, Serum for Spina Bifida Report Normal [facility] Comment on above: Performed By: #### A FPMAT ####[facility] [address] [place] [address]Dr. Jerrod Bettencourt Comment Comment Normal [facility] Comment on above: Result Comment: Fernandez Silverio, Ph.D., [facility] Director . References: Available Upon Request. . Multiples Of Median Cutoffs For AFP Elevations Weeks 2.5 Black 2.8 IDD 2.0 Twins 4.5 Abbreviation Definitions IDD - Insulin Dep Diabetes OSBR - Open Spina Bifida Risk . For further inquiries contact [employer] at [phone]. Performed By: #### A FPMAT ####[facility] [address] [place] [address]Dr. Jerrod Bettencourt Gest Age Collection Date 19.4 weeks Normal [facility] Comment on above: Performed By: #### A FPMAT ####[facility] [address] [place] [id number]. Jerrod Bettencourt Gestat, Age Based on LMP Normal [facility] Comment on above: Result Comment: Reca lculations are not recommended when gestational dating by LMP and ultrasound are within 10 days. Performed By: #### A FPMAT ####[facility] [address] [place] [id number]. Jerrod Bettencourt Insulin Dep Diabetes No Normal [facility] Comment on above: Performed By: #### A FPMAT ####[facility] [address] [place] [address]Dr. Jerrod Bettencourt Interpretation Comment Normal [facility] Comment on above: Result Comment: Inte [...] Customer Services to discuss available options. The [employer] recommends amniocentesis be offered to women age 35 and older. Performed By: #### A FPMAT ####[facility] [address] [place] [address]DrMoises Bettencourt [age] Normal [facility] Comment on above: Performed By: #### A FPMAT ####[facility] [address]ersrd[address] [place] [address]DrMoises Bettencourt Multiple Gestation No Normal [facility] Comment on above: Performed By: #### A FPMAT ####[facility] [address] [place] [address]Dr. Jerrod Bettencourt OS[place] 1 [place] [address] Normal [facility] Comment on above: Performed By: #### A FPMAT ####[facility] [address] [place] [address]Dr. Jerrod Bettencourt PDF . Normal [facility] Comment on above: Performed By: #### A FPMAT ####[facility] [address] [place] [address]Dr. Jerrod Bettencourt Race Normal [facility] Comment on above: Performed By: #### A FPMAT ####[facility] [address]fe[address] [place] [address]DrMoises Bettencourt Test Results: Negative Normal [facility] Comment on above: Performed By: #### A FPMAT ####[facility] [address] [place] [id number] Bettencourt CHLAMYDIA/GONOCOCCUS KATHY (SW AB/URINE/PAPon 12-26-2021 Chlamydia trachomatis, KATHY Negative Normal Negative [facility] Comment on above: Performed By: #### R PRQ #### [facility] Laboratory [address] [place] [address] Dr. Jerrod Bettencourt Neisseria gonorrhoeae, KATHY Negative Normal Negative [facility] Comment on above: Performed By: #### R PRQ #### [facility] Laboratory [address] [place] [address] Dr. Jerrod Bettencourt VAGINITIS/VAGINOSIS DNA PROB Salvador 12-25-2021 Rosalinda species Negative Normal Negative [facility] Comment on above: Performed By: #### V AGINT ####[facility] [address]ms[address] [place] [address]Dr. Jerrod Bettencourt Gardnerella vaginalis Positive Abnormal Negative [facility] Comment on above: Performed By: #### V AGINT ####[facility] [address]brs[address] [place] [address]Dr. Jerrod Bettencourt Trichomonas vaginalis Negative Normal Negative [facility] Comment on above: Performed By: #### V AGINT ####[facility] [address] [place] [address]Dr. eJrrod Bettencourt CULTURE URINEon 11-27-2021 CULTURE URINE Isolate [...] F Oxacillin <=0.25 S F Normal [facility] Comment on above: Performed By: #### U RCX #### [facility] Laboratory [address] [place] [address] Dr. Jerrod Bettencourt HEP B SURFACE ANTIGEN SCREEN on 11-27-2021 HBsAg Screen Negative Normal Negative [facility] Comment on above: Performed By: #### R PRQ #### [facility] Laboratory [address] [place] [address] Dr. Jerrod Bettencourt HEPATITIS C VIRUS AB W/ REFL EX QUANTon 11-27-2021 HCV AB <0.1 Normal 0.0-0.[address] [facility] Comment on above: Performed By: #### R PRQ #### [facility] Laboratory [address] [place] [address] Dr. Jerrod Bettencourt Interpretation: Comment Normal [facility] Comment on above: Result Comment: Nega tive Not infected with HCV, unless recent infection is suspected or other evidence exists to indicate HCV infection. Performed By: #### R PRQ #### [facility] Laboratory [address] [place] [address] Dr. Jerrod Bettencourt HIV 1 AND 2 WITH REFLEXon HIV Screen 4th Generation wRfx Non-Reactive Normal Non Reactive [facility] Comment on above: Result Comment: HIV Negative HIV-1/HIV-2 antibodies and HIV-1 p24 antigen were NOT detected. There is no laboratory evidence of HIV infection. Performed By: #### R PRQ #### [facility] Laboratory [address] [place] [address] Dr. Jerrod Bettencourt RPR QUANTon 11-27-2021 Rapid Plasma Reagin, Quant Non-Reactive Normal NonRea<1:[address] [facility] Comment on above: Performed By: #### R PRQ #### [facility] Laboratory [address] [place] [address] Dr. Jerrod Bettencourt RUBELLA AB IGGon 11-27-2021 Rubella Antibodies, IgG 1.52 index Normal Immune >0.[address] [facility] Comment on above: Result Comment: Non- immune <0.90 Equivocal 0.90 - 0.99 Immune >0.99 Performed By: #### R PRQ #### [facility] Laboratory [address] [place] [address] Dr. Jerrod Bettencourt CBC AUTO DIFFon 11-25-2021 BASO # 0.0 103/ul Normal 0.0-0.[address] [facility] Comment on above: Performed By: #### R PRQ #### [facility] [address] [place] [address] Dr. Jerrod Bettencourt Basophils/100 WBC (Bld) 0.3 % Normal 0.2-2.[address] [facility] Comment on above: Performed By: #### R PRQ #### [facility] [address] [place] [address] Dr. Jerrod Bettencourt EO # 0.3 103/ul Normal 0.0-0.[address] [facility] Comment on above: Performed By: #### R PRQ #### [facility] [address] [place] [address] Dr. Jerrod Bettencourt Eosinophils/100 WBC (Bld) 2.2 % Normal 0.9-7.[address] [facility] Comment on above: Performed By: #### R PRQ #### [facility] [address] [place] [address] Dr. Jerrod Bettencourt Erythrocyte distribution width (RBC) [Ratio] 13.4 % Normal 11.0-15.[address] [facility] Comment on above: Performed By: #### R PRQ #### [facility] Laboratory [address] [place] [address] Dr. Jerrod Bettencourt Hematocrit (Bld) [Volume fraction] 39.5 % Normal 36.0-48.[address] [facility] Comment on above: Performed By: #### R PRQ #### [facility] Laboratory [address] [place] [address] Dr. Jerrod eBttencourt Hemoglobin (Bld) [Mass/Vol] 14.2 g/dL Normal 12.0-16.[address] [facility] Comment on above: Performed By: #### R PRQ #### [facility] Laboratory [address] [place] [address] Dr. Jerrod Bettencourt IG # 0.05 10e3/ul Critically high 0.00-0.03 [facility] Comment on above: Performed By: #### R PRQ #### [facility] Laboratory [address] [place] [address] Dr. Jerrod Bettencourt IG % 0.4 % Normal 0.0-0.[address] [facility] Comment on above: Performed By: #### R PRQ #### [facility] Laboratory [address] [place] [address] Dr. Jerrod Bettencourt LYMPH # 2.8 103/ul Normal 1.2-3.[address] [facility] Comment on above: Performed By: #### R PRQ #### [facility] Laboratory [address] [place] [address] Dr. Jerrod Bettencourt Lymphocytes/100 WBC (Bld) 22.8 % Normal 20.5-60.[address] [facility] Comment on above: Performed By: #### R PRQ #### [facility] Laboratory [address] [place] [address] Dr. Jerrod Bettencourt MANUAL DIFF REQ NO Normal [facility] Comment on above: Performed By: #### R PRQ #### [facility] Laboratory [address] [place] [address] Dr. Jerrod Bettencourt MCH (RBC) [Entitic mass] 31.6 pg Normal 26.7-34.[address] [facility] Comment on above: Performed By: #### R PRQ #### [facility] Laboratory [address] [place] [address] Dr. Jerrod Bettencourt MCHC (RBC) [Mass/Vol] 35.9 g/dL Critically high 29.9-35.[address] [facility] Comment on above: Performed By: #### R PRQ #### [facility] Laboratory [address] [place] [address] Dr. Jerrod Bettencourt MCV (RBC) [Entitic vol] 87.8 fL Normal 81.0-99.[address] [facility] Comment on above: Performed By: #### R PRQ #### [facility] Laboratory [address] [place] [address] Dr. Jerrod Bettencourt MONO # 0.8 103/ul Normal 0.3-0.[address] [facility] Comment on above: Performed By: #### R PRQ #### [facility] Laboratory [address] [place] [address] Dr. Jerrod Bettencourt Monocytes/100 WBC (Bld) 6.8 % Normal 1.7-12.[address] [facility] Comment on above: Performed By: #### R PRQ #### [facility] Laboratory [address] [place] [address] Dr. Jerrod Bettencourt NEUT # 8.2 103/ul Critically high 1.4-6.5 [facility] Comment on above: Performed By: #### R PRQ #### [facility] Laboratory [address] [place] [address] Dr. Jerrod Bettencourt Neutrophils/100 WBC (Bld) 67.5 % Normal 43.0-75.[address] [facility] [facility] Comment on above: Performed By: #### R PRQ #### [facility] [address] [place] [address] Dr. Jerrod Bettencourt Platelet mean volume (Bld) [Entitic vol] 9.5 fL Normal 9.5-13.[address] [facility] Comment on above: Performed By: #### R PRQ #### [facility] [address] [place] [address] Dr. Jerrod Bettencourt PLT 235 103/ul Normal 150-[address] [facility] Comment on above: Performed By: #### R PRQ #### [facility] [address] [place] [address] Dr. Jerrod Bettencourt RBC 4.50 106/ul Normal 4.20-5.[address] [facility] Comment on above: Performed By: #### R PRQ #### [facility] [address] [place] [address] Dr. Jerrod Bettencourt WBC 12.2 103/ul Critically high 4.0-11.0 [facility] Comment on above: Performed By: #### R PRQ #### [facility] [address] [place] [address] Dr. Jerrod Bettencourt GLYCOHEMOGLOBIN A1Con 2021 ADA RECOMMENDATION ADA THERAPEUTIC TARGET 6.0 - 7.0 ACTION SUGGESTED > 7.[address] [facility] Comment on above: Performed By: #### R PRQ #### [facility] [address] [place] [address] Dr. Jerrod Bettencourt Glucose [Mass/Vol] 94 mg/dL Normal [facility] Comment on above: Performed By: #### R PRQ #### [facility] [address] [address] [address] Jerrod Bettencourt HbA1c (Bld) [Mass fraction] 4.9 % Normal <=6.[address] [facility] Comment on above: Performed By: #### R PRQ #### [facility] [address] [address] [address] Jerrod Bettencourt TYPE AND SCREENon 11-25-2021 TYPE AND SCREEN Negative Normal [facility] Comment on above: Performed By: #### T NS #### [facility] [address] [address] [address] Jerrod Bettencourt UA RANDOM W/MICROSCOPICon BACTERIA LARGE Abnormal NONE SEEN [facility] Comment on above: Performed By: #### U AMIC ####[facility] [id number] [place], [place] [address]DrMoises Bettencourt Bilirubin Ql (U) Negative Normal NEGATIVE [facility] Comment on above: Performed By: #### U AMIC ####[facility] [id number] [place], [place] [address]DrMoises Bettencourt CAST NONE SEEN Normal NONE [facility] Comment on above: Performed By: #### U AMIC ####[facility] [id number] [address]DrMoises Bettencourt Clarity (U) SL CLOUDY Abnormal CLEAR [facility] Comment on above: Performed By: #### U AMIC ####[facility] [id number] [address]Dr. Jerrod Bettencourt Color (U) LT. YELLOW Normal YELLOW [facility] Comment on above: Performed By: #### U AMIC ####[facility] [id number] [address]Dr. Jerrod Bettencourt Crystals LM Nom (Urine sed) NONE SEEN Normal NONE SEEN [facility] Comment on above: Performed By: #### U AMIC ####[facility] [id number] [address]Dr. Jerrod Bettencourt Epithelial cells LM Ql (Urine sed) MODERATE Abnormal NONE SEEN /RARE The [facility] Comment on above: Performed By: #### U AMIC ####[facility] [id number] [address]Dr. Jerrod Bettencourt Glucose Ql (U) Negative Normal NEGATIVE [facility] Comment on above: Performed By: #### U AMIC ####[facility] [id number] [place], [place] [address]Dr. Jerrod Bettencourt Hemoglobin Ql (U) TRACE-INTACT Abnormal NEGATIVE [facility] Comment on above: Performed By: #### U AMIC ####[facility] [address] [place], [place] [address]Dr. Jerrod Bettencourt Ketones Ql (U) Negative Normal NEGATIVE [facility] Comment on above: Performed By: #### U AMIC ####[facility] [id number] [place], [place] [address]Dr. Jerrod Bettencourt LEUKOCYTES LARGE Abnormal NEGATIVE The [facility] Comment on above: Performed By: #### U AMIC ####[facility] [id number] [place], [place] [address]Dr. Jerrod Bettencourt MUCOUS NONE SEEN Normal NONE SEEN The [facility] Comment on above: Performed By: #### U AMIC ####[facility] [id number] [place], [place] [address]Dr. Jerrod Bettencourt Nitrite Ql (U) Positive Abnormal NEGATIVE [facility] Comment on above: Performed By: #### U AMIC ####[facility] [id number] [place], [place] [address]Dr. Jerrod Bettencourt pH (U) 6.5 [pH] Normal 5-9 [facility] Comment on above: Performed By: #### U AMIC ####[facility] [id number] [place], [place] [address]Dr. Jerrod Bettencourt RBC 2-5 Abnormal 0-2 [facility] Comment on above: Performed By: #### U AMIC ####[facility] [id number] [place], [place] [address]Dr. Jerrod Bettencourt SPEC GRAVITY 1.020 Normal 1.005-<=1.025 [facility] Comment on above: Performed By: #### U AMIC ####[facility] [address] [address]Dr. Jerrod Bettencourt UA PROTEIN Negative Normal NEGATIVE/ TRACE The [facility] Comment on above: Performed By: #### U AMIC ####[facility] [id number] [address]Dr. Jerrod Bettencourt Urobilinogen Qn (U) 0.2 {Tuan'U}/dL Normal 0.2 - 1. 0 [facility] Comment on above: Performed By: #### U AMIC ####[facility] [address] [address]Dr. Jerrod Bettencourt WBC 75-100 Abnormal NONE SEEN The [facility] Comment on above: Performed By: #### U AMIC ####[facility] [id number] [id number]. Jerrod Bettencourt US PREG TVon 11-02-2021 US [...] MELITA MARTINEZ Date: 2021-11-02 16:19 Normal [facility] Vital Signs Date Time Vital Sign Value Performing Clinician Facility 10-18-2023 10:29-0500 Body height 167.6 cm Verona Decker [facility] 10-18-2023 10:29-0500 Body mass index (BMI) [Ratio] 29.05 kg/m2 Verona Decker MD Work Phone: [facility] [employer] [facility] 10-18-2023 10:29-0500 Body weight 81.65 kg Verona Decker MD Work Phone: [facility] [employer] [facility] 10-18-2023 10:29-0500 Diastolic blood pressure 66 mm[Hg] Verona Decker MD Work Phone: [facility] [employer] [facility] 10-18-2023 10:29-0500 Heart rate 84 /min Verona Decker MD Work Phone: [facility] 10-18-2023 10:29-0500 Systolic blood pressure 113 mm[Hg] Verona Decker MD Work Phone: [facility] 01-11-2023 15:36-0400 Body temperature 97.88 [degF] Yash Medina [facility] 01-11-2023 15:36-0400 Diastolic blood pressure 81 mm[Hg] Yash Medina [facility] 01-11-2023 15:36-0400 Heart rate 79 /min Yash Medina [facility] 01-11-2023 15:36-0400 Respiratory rate 18 /min Yash Medina [facility] 01-11-2023 15:36-0400 SaO2% (BldA) [Mass fraction] 99 % Yash Medina [facility] 01-11-2023 15:36-0400 Systolic blood pressure 117 mm[Hg] Yash Medina [facility] 12-07-2022 23:00-0400 Diastolic blood pressure 75 mm[Hg] Yash Adam [facility] 12-07-2022 23:00-0400 Heart rate 74 /min Yash Medina [facility] 12-07-2022 23:00-0400 Mean blood pressure 90 mm[Hg] Yash Adam [facility] 12-07-2022 23:00-0400 Respiratory rate 16 /min Yash Adam [facility] 12-07-2022 23:00-0400 SaO2% (BldA) [Mass fraction] 98 % Yash Adam [facility] 12-07-2022 23:00-0400 Systolic blood pressure 120 mm[Hg] Yash Adam [facility] 12-07-2022 22:00-0400 Diastolic blood pressure 74 mm[Hg] Yash Adam [facility] 12-07-2022 22:00-0400 Heart rate 92 /min Yash Adam [facility] 12-07-2022 22:00-0400 Mean blood pressure 88 mm[Hg] Yash Adam [facility] 12-07-2022 22:00-0400 Systolic blood pressure 115 mm[Hg] Yash Adam [facility] 12-07-2022 21:30-0400 Body temperature 97.7 [degF] Yash Adam [facility] 12-07-2022 21:30-0400 Diastolic blood pressure 87 mm[Hg] Yash Adam [facility] 12-07-2022 21:30-0400 Heart rate 89 /min Yash Adam [facility] 12-07-2022 21:30-0400 Respiratory rate 20 /min Yash Adam [facility] 12-07-2022 21:30-0400 SaO2% (BldA) [Mass fraction] 97 % Yash Adam [facility] 12-07-2022 21:30-0400 Systolic blood pressure 139 mm[Hg] Yash Medina [facility] 01-19-2022 03:11-0400 Body weight 74.[address] NONE LISTED REQUEST The [facility] Comment on above: Performed By: #### AFPMAT ####[facility] [address] [place], [place] [address]Np. Jerrod Bettencourt Encounters Encounter Date Encounter Type Care Provider Facility Start: 10-19-2023 Orders Only Edward Ogden DISPATCHER REFINERY [facility] Comment on above: Abnormal thyroid fun ction test (Primary Dx); Pyelectasis of fetus on ultrasound Start: 10-18-2023 End: 10-19-2023 ambulatory VERONA DECKER [facility] Start: 10-18-2023 End: 10[facility]18[facility]: 10-18-2023 End: 10-18-2023 Office consultation new/estab patient 60 min Verona Decker MD Work Phone: [facility] Comment on above: 20 weeks gestation o f (Primary Dx); Abnormal thyroid function test; Bipolar affective disorder, remission status unspecified ([facility]); Depression affecting ; Pyelectasis of fetus on ultrasound Start: 09-26-2023 End: 09-26-2023 ambulatory SLOANE BRITT Not Available Start: 09-24-2023 Chart abstracting Verona Decker MD Work Phone: [facility] Start: 08-28-2023 End: 08-28-2023 ambulatory JOHN PRASHANTH Not Available Start: 08-09-2023 End: 08-09-2023 ambulatory JOHN PRASHANTH Not Available Start: 08-03-2023 End: 08-03-2023 ambulatory JOHN PRASHANTH Not Available Start: 03-19-2023 End: 03-19-2023 ambulatory Angus Benedict Facility:[facility] Start: 03-05-2023 End: 03-05-2023 ambulatory Angus Jak Facility:[facility] Start: 03-05-2023 End: 03-05-2023 ambulatory MD Madhavi Bustamante [facility] Work Phone: Start: 03-05-2023 End: 03-05-2023 Patient encounter procedure MD Madhavi Bustamante [facility] [employer] Work Phone: Start: 01-11-2023 End: 01-11-2023 Emergency department patient visit Yash Medina [place] Start: 01-11-2023 End: 01-11-2023 Emergency department patient visit Yash Medina [facility] Start: 12-07-2022 End: 12-08-2022 Emergency department patient visit Yash Medina [facility] Start: 12-07-2022 End: 12-07-2022 Emergency department patient visit Yash Medina [facility] Start: 12-04-2022 End: 12-05-2022 ambulatory Madhavi Bustamante [facility] Start: 12-04-2022 End: 12-04-2022 Patient encounter procedure Madhavi Bustamante [facility] Start: 10-24-2022 End: 10-24-[address] JOHN [...] Facility:[facility] Start: 05-02-2022 End: 05-02-[address] JOHN WILSON . Facility:[facility] Start: 04-26-2022 End: 04-26-2022 [...] Adult BMI Screening Adult BMI Screen ing [facility] Start: 10-18-2024 Tobacco Screening Tobacco Screening [facility] Start: 11-16-2023 End: 11-16-2023 Patient encounter procedure 11/16/2023 11:00 AM EDT Appointment [facility] [address] [place] [id number] [facility] Start: 10-18-2023 End: 10-18-2023 Patient encounter procedure 10/18/2023 10:30 AM EST Office Visit [facility] [address] [place] [id number] Verona Decker MD [address] [place] [address] [facility] Start: 10-18-2023 End: 10-18-2023 Patient encounter procedure 10/18/2023 9:15 AM EST Appointment [facility] [address] [place] [address] [facility] Start: 05-04-2023 Influenza vaccination Influenza Vacc ine [facility] Start: 2021 Screening for malign ant neoplasm of cervix Pap Smear [facility] Start: 2018 Adult BMI Follow Up Plan Adult BMI Follow Up Plan [facility] Start: 2018 Adult BMI Screening Adult BMI Screen ing [facility] Start: 2012 Depression Screening Depression Scre ening [facility] Start: 2012 Tobacco Screening Tobacco Screening [facility] Start: 2011 DTaP,Tdap and Td Vaccines (6 - Tdap) DTaP,Tdap and Td Vaccines (6 - Tdap) [facility] Start: 2000 Screening for Chlamy shreyas trachomatis Chlamydia Screening [facility] Payers Date Payer Category Payer Self-pay 2022 Unknown [id number] 2019 Private Health Insurance 2000 Unknown [id number] 2.16.84 0.1.817125.3.579.2.593 2000 Unknown [id number] 2.16.84 0.1.870734.3.579.2.593 2000 Unknown [id number] 2.16.84 0.1.686745.3.579.2.593 2000 Unknown [id number] 2.16.84 0.1.539154.3.579.2.593 2000 Unknown [id number] 2.16.84 0.1.412607.3.579.2.593 2000 Unknown [id number] 2.16.84 0.1.483354.3.579.2.593 2000 Unknown [id number] 2.16.84 0.1.965418.3.579.2.593 2000 Unknown [id number] 2.16.84 0.1.828875.3.579.2.593 2000 Unknown [id number] 2.16.84 0.1.713182.3.579.2.593 2000 Unknown [id number] 2.16.84 0.1.144196.3.579.2.593 2000 Unknown [id number] 2.16.84 0.1.179398.3.579.2.593 2000 Unknown [id number] 2.16.84 0.1.259967.3.579.2.593 2000 Unknown [id number] 2.16.84 0.1.118149.3.579.2.593 2000 Unknown [id number] 2.16.84 0.1.003820.3.579.2.593 2000 Unknown [id number] 2.16.84 0.1.515312.3.579.2.593 2000 Unknown [id number] 2.16.84 0.1.361569.3.579.2.593 2000 Unknown [id number] 2.16.84 0.1.843295.3.579.2.593 2000 Unknown [id number] 2.16.84 0.1.623667.3.579.2.593 2000 Unknown [id number] 2.16.84 0.1.601407.3.579.2.593 2000 Unknown [id number] 2.16.84 0.1.511968.3.579.2.593 2000 Unknown [id number] 2.16.84 0.1.203203.3.579.2.593 2000 Unknown [id number] 2.16.84 0.1.608718.3.579.2.593 2000 Unknown [id number] 2.16.84 0.1.649544.3.579.2.593 2000 Unknown [id number] 2.16.84 0.1.870106.3.579.2.593 2000 Unknown [id number] 2.16.84 0.1.013179.3.579.2.593 2000 Unknown [id number] 2.16.84 0.1.564922.3.579.2.593 2000 Unknown [id number] 2.16.8 40.1.917899.3.579.2.727 2000 Unknown [id number] 2.16.8 40.1.481042.3.579.2.727 2000 Unknown [id number] 2.16.8 40.1.662266.3.579.2.727 2000 Unknown [id number] 2.16.84 0.1.299922.3.579.2.1259 2000 Unknown [id number] 2.16.840 .1.827770.3.579.2.1259 2000 Unknown [id number] 2.16.840 .1.175698.3.579.2.1259 2000 Unknown [id number] 2.16.840 .1.851507.3.579.2.1259 2000 Unknown [id number] 2.16.8 40.1.709672.3.579.2.1286 2000 Unknown [id number] 2.16.8 40.1.395516.3.579.2.1286 2000 Unknown [id number] 2.16.8 40.1.089886.3.579.2.1286 1959 Medicaid [id number] 1959 Private Health Insurance [id number] 1959 Self-pay [id number] Unknown [id number] 2.16.8 40.1.991592.3.579.2.531 Unknown [id number] 2.16.8 40.1.310650.3.579.2.531 Social History Date Type Detail Facility [facility] Comment on above: denies Tobacco smoking status No Smokin g Status Entered [facility] Start: 09-24-2023 End: 10-18-2023 Sex Assigned At Female [facility] Start: 03-05-2023 End: 09-24-2023 Tobacco smoking status NHIS Never smoked tobacco (finding) [facility] Start: 2000 Sex Assigned At Female [facility] Start: 09-24-2023 Tobacco use and exposure Smokeless tobacco non-user [facility] Start: 09-26-2023 End: 10-18-2023 Alcohol intake Ex-drinker (finding) [facility] Start: 09-24-2023 End: 10-18-2023 History of Social function [facility] [employer] [facility] Start: 06-14-2023 [facility] Start: 2000 Sex Assigned At Not on file P [employer] [facility] Within the past 12 months we worried whether our food would run out before we got money to buy more. Never True [facility] Functional Status Date Assessment Result Facility 01-11-2023 Functional Status N/A [facility] 12-07-2022 Functional Status N/A [facility] Clinical Notes 06-02-2022 to 10-18-2023 Verona Decker [...] Medical History: Diagnosis Date Anxiety Bipolar disorder ([facility]) Chronic cholecystitis Depression SURGICAL HISTORY: Past Surgical [...] TESTS AND ULTRASOUND REPORTS: Referral records and [facility] chart were reviewed Pertinent Ultrasound findings are [...] of level 2 anatomy ultrasound, scheduled through [facility] Patient to return in 12 weeks at 32 weeks' gestation for re-evaluation of bilateral urinary tract dilation, scheduled through [facility] DISPOSITION: At this point the patient is in complete care of her stopper grinder. Patient does have ultrasound scheduled with us. [...] procedures Referring and communicating with other health client care manager (not separately reported) Documenting clinical information in the electronic or other health record Verona Decker MD Maternal- [facility] [id number] [facility] 1st [place] [address] [facility], the CDC, and other organizations representing maternal and public health professionals recommend that , , and lactating people and those considering receive the COVID-19 vaccination. Vaccination is the best method to reduce maternal and complications of SARS-CoV-2 infection. This document was created with [employer] technology. Though I make every effort to review the dictation as it is transcribed, on occasion the spoken word can be misinterpreted by the technology leading to inappropriate words, phrases, or sentences. This note is addressed to the requesting provider as a consultation for clinical guidance. Specific medical abbreviations are occasionally used and those are generally approved by the [place]?Board of?Obstetrics and?Gynecology?as well as?Gayle turner abbreviations. The above plan of care was based solely on the diagnoses for which a consultation was requested. ?More frequent testing may be indicated based on her other medical/obstetrical conditions. The management of other or medical conditions is beyond the scope of requested consultation and will continue to be followed by the primary stopper grinder or primary care provider. Note to patient: [...] male Have you been seen here at [facility] in a previous ? No Recent ER visits or hospitalizations? No Bring blood sugar log or meter with you today? (Please bring them with you for every visit at [facility]) n/a Traveled outside the country in the past 6 month no Any concerns that you would like me to mention to the provider today? No documented in this encounter [facility] Hospital Discharg e instructions Patient Education [...] are sitting or lying down. Medicines Take xrff-pxb-dkpvpqa and prescription medicines only as told by [...] provider. Document Revised: 07/13/2021 Document Reviewed: 07/13/2021 [employer] Patient Education 2022 [employer]. 01/11/2023 17:05:20 Contusion Contusion A contusion is [...] sitting or lying down. General instructions Take xiwq-pzr-bsxpwmq and prescription medicines only as told by [...] compression, and elevation. You may be given wnep-ves-yhsexoc medicines for pain. Contact a health care [...] provider. Document Revised: 07/04/2022 Document Reviewed: 06/15/2022 [employer] Patient Education 2022 [employer]. Follow Up Care 01/11/2023 15:31:57 With:Madhavi Bustamante Address: [address] [place] [address]- Business (1) When:01/14/2023 16:47:05 [facility] 01-11-2023 Evaluation + Plan note Extrac yolanda from: Title:ED Note Author:Derek Salcido PA-C te:01/11/23 Finger sprain (S63.619A: Uns pecified sprain of unspecified finger, initial encounter) Hand contusion (S60.229A: Contusion of unspecified hand, initial encounter) Orders: Finger Splint Application XR Hand 3+ Views Left [facility]04-07-2023 Hospital Discharge instructions Patient Education 12/07/2022 23:48:57 [...] water added (diluted fruit juice). Eat bland, bojo-oc-wjzjra foods in small amounts as you are able. These foods include bananas, applesauce, rice, lean meats, toast, and crackers. Avoid fluids that contain a lot of sugar or caffeine, such as energy drinks, sports drinks, and soda. Avoid alcohol. Avoid spicy or fatty foods. General instructions Take wgwn-kry-milaebk and prescription medicines only as told by your health care provider. Drink enough fluid to keep your urine pale yellow. Wash your hands often using soap and water. If soap and water are not available, use hand teacher aide. Make sure that all people in your [...] eating and drinking to prevent dehydration. Take ewcg-hij-mioarca and prescription medicines only as told by [...] 08/20/2006 Document Revised: 12/12/2019 Document Reviewed: 01/28/2019 [employer] Patient Education 2020 [employer]. 12/07/2022 23:48:57 Cholelithiasis Cholelithiasis Cholelithiasis is a [...] family history of gallstones. Being of or [place] descent. Having an intestinal disease such as [...] gallstones. Follow these instructions at home: Take ouqr-xeh-ryxyufp and prescription medicines only as told by [...] 08/16/2006 Document Revised: 08/02/2018 Document Reviewed: 05/06/2017 [employer] Patient Education 2020 [employer]. Follow Up Care 12/07/2022 21:26:38 With:Fernando Clark Address: [facility] [address] [place] [address] [id number] Business (1) When:12/10/2022 Comments:General surgeon in [place] With:Willie LOZADA Address: [facility] [address], [address] [address]- Business (1) When:12/10/2022 Comments:General surgeon at [place] With:Please return to the ED with any new or worsening symptoms including worsening pain, fevers and chills, worsening nausea and inability to tolerate a liquid diet. Address:Unknown When: Unknown With:You may follow with the general surgeon recommended to by your primary care provider. You have alsobeen provided with the information for the local [facility] general surgeons. Address:Unknown When: Unknown [facility]04-06-2023 Evaluation + Plan noteExtracted from: Title:ED Note Author:Lupis Miller PA-C [place] e:12/07/22 Cholelithiases (K80.20: Calc ulus of gallbladder without cholecystitis without obstruction) Nausea (R11.0: Nausea) Orders: dicyclomine, 10 mg = 1 cap(s), Oral, QID, PRN Pain, X 7 day(s), # 28 cap(s), Refills(s) 0, Pharmacy: [facility]/pharmacy #[id number], 167.6, cm, 12/07/22 21:32:00 EDT, [...] day(s), # 12 tab(s), Refills(s) 0, Pharmacy: [facility]/pharmacy #[id number], 167.6, cm, 12/07/22 21:32:00 EDT, [...] Diagnostic Tests Pending * Urine Culture 12/07/22 [facility]04-03-2023 Evaluation + Plan note Diagnostic Tests Pending * ANGEL w/Reflex if POS 12/04/22 [facility]09-30-2022 NoteOP Note OPERATION DATE: 06/03/2022 PROCEDURE: Primary low transverse section. PREOPERATIVE DIAGNOSIS: 1. Intrauterine 39 weeks. 2. Failure to induce. 3. Maternal discomfort. 4. Maternal intolerance to labor, requesting . POSTOPERATIVE DIAGNOSIS: 1. Intrauterine 39 weeks. 2. Failure to induce. 3. Maternal discomfort. 4. Maternal intolerance to labor, requesting . ANESTHESIA: Spinal with Duramorph. SURGEON: John Wilson D.O. ACCOUNT MANAGER RELIEF: JOSÉ Burnham URINE OUTPUT: Yellow and clear. [...] to the Recovery Room in stable condition.[id number] Note DISCHARGE SUMMARY DISCHARGE DATE: 06/17/2022 PRIMARY [...] pain free and no longer on narcotics.[facility] [id number] NoteOPERATIVE NOTE OPERATION DATE: 06/04/2022 PROCEDURE: Primary low transverse section. PREOPERATIVE DIAGNOSIS: 1. Intrauterine 39 weeks. 2. Failure to induce. 3. Maternal discomfort. 4. Maternal intolerance to labor, requesting . POSTOPERATIVE DIAGNOSIS: 1. Intrauterine 39 weeks. 2. Failure to induce. 3. Maternal discomfort. 4. Maternal intolerance to labor, requesting . ANESTHESIA: Spinal with Duramorph. SURGEON: John Wilson D.O. ACCOUNT MANAGER RELIEF: JOSÉ Burnham URINE OUTPUT: Yellow and clear. [...] to the Recovery Room in stable condition.[facility]ullEvaluation noteNo assessment information availableToledo Hospital Ctr Work Phone: Evaluation note* Diagnosis 20 weeks gestation of - Primary Abnormal thyroid function test Nonspecific abnormal results of thyroid function study Bipolar affective disorder, remission status unspecified ([facility]) Depression affecting Pyelectasis of fetus on ultrasound documented in [facility] Diagnosis Abnormal thyroid function test- Primary Nonspecific abnormal results of thyroid function study Pyelectasis of fetus on ultrasound [facility] N[facility] No data available for this section [facility] No data available for this section [facility] Campus[facility]ructionsNot on filedocumented in this encounter [facility]ructionsNot on filedocumented in this encounter [facility]InstructionsNot on filedocumented in this encounter [facility] note No data available for this section [facility] Summary Purpose Family History No Family History [...] MD [address] [place] [address] [facility] [address] [place] [address] Referral ID Status Reason Start Date Expiration Date V isits Requested Visits Authorized [id number] Pending Review 10/19/2023 10/18/2024 1 1 Additional Source Comments INFORMATION SOURCE (unrecogn ized section and content) DATE CREATED AUTHOR 11/01/2022 [facility] DATE CREATED AUTHOR AUTHOR'S ORGANIZ ATION 01/12/2023 [facility] DATE CREATED AUTHOR AUTHOR'S ORGANIZ ATION 05/04/2023 [facility] DATE CREATED AUTHOR AUTHOR'S ORGANIZ ATION 09/27/2023 [facility] EPIC DATE CREATED AUTHOR AUTHOR'S ORGANIZ ATION 10/20/2023 [facility] Patient Care team informatio n (unrecognized section [...] BE BASED ON THE PRIMARY CLINICAL RECORDS. [employer] [facility]. provides no warranty or guarantee of the accuracy or completeness of information in this document.
[2023-10-27 02:08] LABS: AFP Value 68.6 ng/mL (.); Gest. Age on Collection Date 20.6 weeks (.); Insulin Dep Diabetes No (.); Maternal Age At EDD 23.9 yr (.); OSBR Risk 1 IN 5748 (.); Results Report (.)
== END 2023-10-25 12:34 | disposition home or self-care (01) ==
LOC: LAB 12:34
PROVIDERS: PCP Student in an Organized Health Care Education/Training Program; Visit Provider Obstetrics & Gynecology
DX: Z34.92 Encounter for supervision of normal pregnancy, unspecified, second trimester (principal)
CPT/HCPCS: 36415; 82105

== ENCOUNTER 2023-12-24 07:27 | Outpatient (RCR) | payer OTHER, SELFPAY ==
[2023-12-24 07:50] VITALS: BP 117/74; PULSE 92; TEMP 36.6; O2SAT 99
--- NOTE | 2023-12-24 07:52 | PC.NURSE ---
0748: Pt. to [facility] amb. for rhogam shot. Seated in recliner. Relays has received rhogam with last without adverse reaction. VSS. Given bottled water.
[2023-12-24] MEDS: RHO(D) IMMUNE GLOBULIN 1,500 UNIT SYRINGE 1500 UNIT IM (07:54)
--- NOTE | 2023-12-24 08:09 | PC.NURSE ---
0802: Pt. medicated with Rhophylac as directed. See MAR. Trace bleeding to injection site, bandaid applied. Pt tolerates without c/o. D/c'd amb. to home.
[2023-12-24 09:32] LABS: Basophils Absolute Auto 0.1 10^3/uL (0.0-0.1); Basophils Percent Auto 0.5 % (0.2-2.0); Eosinophils Absolute Auto 0.2 10^3/uL (0.0-0.7); Eosinophils Percent Auto 2.1 % (0.9-7.0); Hematocrit 36.7 % (36.0-48.0); Hemoglobin 12.6 g/dL (12.0-16.0); Immature Granulocytes Abs Auto 0.08 10^3/uL (0.00-0.03); Immature Granulocytes Pct Auto 0.7 % (0.0-0.5); Lymphocytes Absolute Auto 1.6 10^3/uL (1.2-3.8); Lymphocytes Percent Auto 14.9 % (20.5-60.0); Mean Corpuscular HGB Conc 34.3 g/dL (29.9-35.2); Mean Corpuscular Hemoglobin 32.8 pg (26.7-34.0); Mean Corpuscular Volume 95.6 fL (81.0-99.0); Mean Platelet Volume 10.4 fL (9.5-13.5); Monocytes Absolute Auto 0.6 10^3/uL (0.3-0.8); Monocytes Percent Auto 5.3 % (1.7-12.0); Neutrophils Absolute Auto 8.3 10^3/uL (1.4-6.5); Neutrophils Percent Auto 76.5 % (43.0-75.0); Platelet Count 170 10^3/uL (150-450); Red Blood Count 3.84 10^6/uL (4.20-5.40); Red Cell Distribution Width 12.9 % (11.0-15.0); White Blood Count 10.8 10^3/uL (4.0-11.0)
[2023-12-24 10:27] LABS: Glucose 1 Hour 132 mg/dL (<130)
== END 2024-01-01 23:59 | disposition home or self-care (01) ==
LOC: INF 07:27
PROVIDERS: PCP Student in an Organized Health Care Education/Training Program; Visit Provider Obstetrics & Gynecology
DX: O26.893 Other specified pregnancy related conditions, third trimester (principal); Z67.91 Unspecified blood type, Rh negative; Z3A.00 Weeks of gestation of pregnancy not specified
CPT/HCPCS: 36415; 82950; 85025; 86850; 86900; 86901; 96372; J2790

== ENCOUNTER 2024-02-06 19:28 | Outpatient (REF) | payer OTHER, SELFPAY | END 2024-02-06 19:29 | disposition home or self-care (01) | LOC: LAB 19:28 | PROVIDERS: PCP Student in an Organized Health Care Education/Training Program; Visit Provider Obstetrics & Gynecology | DX: Z34.93 Encounter for supervision of normal pregnancy, unspecified, third trimester (principal) | CPT/HCPCS: 87081 ==

== ENCOUNTER 2024-02-21 11:24 | Observation (INO) | payer OTHER, SELFPAY ==
[2024-02-21 11:44] VITALS: BP 123/79; PULSE 87
--- OUTSIDE RECORDS SUMMARY | 2024-02-21 11:45 | XMS_ITS | CCD ---
Author Organization [facility] Care Team Providers Care Electroplating Technician Name Role Phone REQUEST, DR SHERMAN LISTED [...] DR COLEMAN Consulting Unavailabl e REQUEST, DR NONE LISTED Primary Care Unavaila ble PRASHANTH ., DR HARKINS Consulting Unavailable ZIEBER, DR MELITA Rivas Consulting Unavailable REQUEST, DR WHITAKER LISTED Primary Care Unavaila ble PRASHANTH ., DR HARKINS Admitting Unavailable PRASHANTH ., DR HARKINS Attending Unavailable REQUEST, DR WHITAKER LISTED Primary Care Unavaila ble PRASHANTH ., DR HARKINS Attending Unavailable PRASHANTH ., DR HARKINS Consulting Unavailable PRASHANTH ., DR HARKINS Admitting Unavailable PRASHANTH ., DR HARKINS Consulting Unavailable PRASHANTH ., DR HARKINS Admitting Unavailable REQUEST, DR WHITAKER LISTED Primary Care [...] HARKINS Admitting Unavailable DBOUK, ARTIS Consulting Unavailable FLORENTINO BOWEN Consulting Unavailable PRASHANTH ., DR HARKINS Procedure [...] Unavailable PRASHANTH ., DR HARKINS Attending Unavailable GLEN AUBREY, DR ELIAS Saenz Consulting Unavailable REQUEST, DR NONE LISTED Primary Care Unavaila ble PRASHANTH ., DR HARKINS Consulting Unavailable REQUEST, DR NONE LISTED Primary Care Unavaila ble PRASHANTH ., DR HARKINS Admitting Unavailable PRASHANTH ., DR HARKINS Attending Unavailable GLEN AUBREY, DR ELIAS Saenz Consulting Unavailable PRASHANTH ., DR HARKINS Consulting Unavailable REQUEST, DR NONE LISTED Primary Care Unavaila ble PRASHANTH ., DR HARKINS Attending Unavailable PRASHANTH ., DR HARKINS Consulting Unavailable PRASHANTH ., DR HARKINS Admitting Unavailable Madhavi Bustamante Primary Care Physician [phone] Madhavi Bustamante Referring Unavailable Madhavi Bustamante Attending Unavailable Madhavi Bustamante Admitting Unavailable Yash Medina Attending Unavailable Yash Medina Attending Unavailable DO Angus Benedict Attending Provider MD Madhavi Bustamante Primary Care Provider Unavaila Angus Lee Attending Unavailable Madhavi Bustamante Primary Care Unavailable Angus Benedict Admitting Unavailable Angus Benedict Attending Unavailable Madhavi Bustamante Primary Care Unavailable Angus Benedict Admitting Unavailable Unavailable Primary Care Provider Unavailraghu e JOHN WILSON Referring Unavailable PRASHANTHJOHN OLIVERA R Referring Unavailable JOHN WILSON R Referring Unavailable DECKER, VERONA Attending Unavailable JOHN WILSON R Referring Unavailable DECKER, VERONA Referring Unavailable JOHN WILSON Attending Unavailable SLOANE RBITT Attending Unavailable PRASHANTH, JOHN Attending Unavailable SLOANE BRITT Attending Unavailable PRASHANTH, JOHN Attending Unavailable PRASHANTH, JOHN Attending Unavailable PRASHANTH, JOHN Attending Unavailable PRASHANTH, JOHN Attending Unavailable PRASHANTH, JOHN Attending Unavailable PRASHANTH, JOHN Attending Unavailable PRASHANTH, JOHN Attending Unavailable Medications Current Medications Medication Drug Class(es) [...] f41.1, # 30 tab(s), Refills(s) 2, Pharmacy: [facility]/pharmacy #[id number], 168, cm, 05/19/20 1:25:00 EDT, Height/Length [...] day(s), # 28 cap(s), Refills(s) 0, Pharmacy: [facility]/pharmacy #[id number], 167.6, cm, 12/07/22 21:32:00 EDT, Height/Length Dosing, 79, kg, 12/07/22 21:32:00 EDT, Weight Dosing Start Date: 12/07/22 Stop Date: 12/14/22 Status: Ordered hydrOXYzine hydrochloride 25 mg oral tablet (4 sources) Antihistamine Start: 03-05-2023 take 25 mg by mouth twice daily Hydroxyzine Hcl Active 25 MG PO Twice daily March 05, 2023 12:00am take 1 tablet by maribell th three times daily as needed hydrOXYzine (ATARAX) [...] Daily, # 30 tab(s), Refills(s) 5, Pharmacy: [facility]/pharmacy #[id number], 168, cm, 05/19/20 1:25:00 EDT, Height/Length Dosing, 90, kg, 05/19/20 1:25:00 EDT, Weight Dosing Start Date: 06/17/20 Status: Ordered levonorgestrel 0.156164 mg/hr intrauterine system (4 sources) Progestin, Progestin-containing [...] BID, # 60 tab(s), Refills(s) 5, Pharmacy: [facility]/pharmacy #[id number], 168, cm, 05/19/20 1:25:00 EDT, Height/Length [...] Pain, # 20 tab(s), Refills(s) 0, [id number] 168, cm, 05/07/21 16:26:00 EDT, Height/Length Dosing, 80, kg, 05/07/21 16:26:00 EDT, Weight Dosing Start Date: 05/07/21 Status: Ordered Start: 05-19-2020 take 1 tablet by maribell th twice daily Naprosyn 500 mg Tab 500 mg = 1 tab(s), Oral, BID, # 20 tab(s), Refills(s) 0, Pharmacy: [facility]/pharmacy #[id number], 168, cm, 05/19/20 1:25:00 EDT, Height/Length [...] day(s), # 12 tab(s), Refills(s) 0, 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 ; Translations: [Other mental disorders complicating , unspecified trimester] 10-18-2023 Episodic Other complications of (1 source) Supervision of high risk , unspecified, unspecified trimester; Translations: [Supervision of high risk , unspecified, unspecified trimester] Onset: 11-16-2023 Episodic Other complications of (1 source) Other mental disorders complicating , unspecified trimester; Translations: [Other mental disorders complicating , unspecified trimester] Onset: 10-18-2023 Episodic Other screening [...] unspecified type scar from previous delivery] Onset: 11-16-2023 Episodic Residual codes; unclassified (1 source) Gestation [...] genitourinary anomalies, not applicable or unspecified] Onset: 11-16-2023 Unclassified (1 source) Thyroid Issues Onset: 10-18-2023 [...] Free T4 [Mass/Vol] 0.70 ng/dL Normal 0.61-1.60 [facility] Comment on above: Performed By: #### T HYR #### [facility] ([id number]) [address], [address] [place] [address] TSH 0.72 uIU/mL Normal 0.49-4.67 [facility] Comment on above: Performed By: #### T HYR #### [facility] ([id number]) [address], [address] [place] [address] Thyroid profile includes TSH FT4on 10-18-2023 Free T4 [Mass/Vol] 0.70 ng/dL 0.61 - 1. 60 ng/dL [facility] TSH Qn 0.72 m[IU]/L [facility] Free Cell DNAon 2022 [facility] Alkaline Phosphataseon 03-19 ALP [Catalytic activity/Vol] 71 U/L Normal 34-104 [facility] Comment on above: Performed By: #### B ILTD, LIPASE, SLOANE, ALP #### [facility] [address] [place] [address] [place] Amylaseon 03-19-2023 Amylase [Catalytic activity/Vol] 71 U/L Normal 29-103 [facility] Comment on above: Performed By: #### B ILTD, LIPASE, SLOANE, ALP #### [facility] [address] [place] [id number] [place] Bilirubin, Total and Directo n 03-19-2023 Bilirubin [Mass/Vol] 1.0 mg/dL Normal 0.3-1.0 [facility] Comment on above: Performed By: #### B ILTD, LIPASE, SLOANE, ALP #### [facility] [address] [place] [address] [place] Bilirubin,Indirect 0.9 mg/dL Normal [facility] Comment on above: Performed By: #### B ILTD, LIPASE, SLOANE, ALP #### [facility] [address] [place] [address] [place] Bilirubin.indirect [Mass/Vol] 0.10 mg/dL Normal 0.03-0.18 [facility] Comment on above: Performed By: #### B ILTD, LIPASE, SLOANE, ALP #### [facility] [address] [place] [address] HCG,Urineon 03-19-2023 Beta HCG ( test) Ql (U) Negative Normal [facility] Comment on above: Result Comment: PERF ORMED BY: [place] [address] PATHOLOGIST AUTOMATIC TRIMMING SEWER BARBARA FERNANDEZ M.D. Performed By: #### U HCG #### [facility] [address] [place] [address] Juan 03-19-2023 L Specimen: [id number] Received: 03/19/23 Status: JULIEN Weldon Num: [id number] Spec Type: Surgical Subm Dr: Angus Benedict DO Tissues: A Gallbladder (GALLBLADDER) Procedures: Saranya STANFORD/Ariel L3 Age/ Patient Sex Location Account Attending Physician Darline Falcon [place] [id number] Angus Benedict DO SPEC NUM: [id number] RECD: 03/19/23 STATUS: JULIEN WELDON NUM: [id number] CLAY: 03/19/[address] [facility] [address]: Angus Benedict DO ENTERED: 03/19/[address]: EARL TYPE: Surgical DEPT: S ORDERED: HE, Gross/Micro [...] identified with a rubbery, yellow-vergara cut surface. Magazine Worker sections are submitted in one cassette labeled A1. Specimen: [id number] Received: 03/19/23 Status: JULIEN Weldon Num: [id number] Spec Type: Surgical Subm Dr: Angus Benedict DO Tissues: A Gallbladder (GALLBLADDER) Procedures: Saranya STANFORD/Ariel L3 Patient: Darline Falcon [id number] (Continued) Specimen: [id number] Received: 03/19/23 (Continued) Signed (signature on file) Haile Dc MD 03/21/23 1203 Specimen: [id number] Received: 03/19/23 Status: JULIEN Weldon Num: [id number] Spec Type: Surgical Subm Dr: Angus Benedict DO Tissues: A Gallbladder (GALLBLADDER) Procedures: Justus STANFORD L3 Patient: Darline Falcon [id number] (Continued) Specimen: [id number] Received: 03/19/23 (Continued) Microscopic Description One H E slide reviewed. The microscopic examination confirms the diagnosis. CPT Codes 59431 Specimen: [id number] Received: 03/19/23 Status: JULIEN Weldon Num: [id number] Spec Type: Surgical Subm Dr: Angus Benedict DO Tissues: A Gallbladder (GALLBLADDER) Procedures: Saranya STANFORD/Micro L3 Patient: Darline Falcon [id number] (Continued) Signed (signature on file) Haile Dc MD 03/21/23 1203 Normal [facility] Lipaseon 03-19-2023 Lipase [Catalytic activity/Vol] 32.0 U/L Normal 11.0-82.0 [facility] Comment on above: Result Comment: PERF ORMED BY: [place] [address] PATHOLOGIST AUTOMATIC TRIMMING SEWER BARBARA FERNANDEZ M.D. Performed By: #### B ILTD, LIPASE, SLOANE, ALP #### [address] Discharge Instructionson Discharge Instructions [id number] #1.00CD:127 Normal [facility] Consent for Treatmenton 01-01 Consent for Treatment [id number] #1.00CD:127 Normal [facility] ED Clinical Summaryon 2022 ED Clinical Summary [place] [id number] ED Clinical Summary Person Information Name: DARLINE FALCON [facility] Age: 22 Years : 2000 Sex: Female Language: Amharic PCP: Madhavi Bustamante MD Marital Status: Single Phone: [phone] Visit Id: Visit Reason: Wrist pain-swelling; Hand [...] 01/11/2023 17:05:20 01/11/2023 17:05:20 01/11/2023 17:05:20 ADDRESS: [facility] [id number] PHYS DOC NOTES: MEDICAL INFORMATION: Prescriptions Given: [...] Contusion Follow up: With: Address: When: Madhav[place] [place] [address] Business ([employer] My Mobile In 3 days 01/14/2023 DIAGNOSIS: Finger sprain; Hand contusion Normal [facility] ED Note-Physicianon 01-12-20 ED Note-Physician Basic Information [...] symptoms worsen or change. Assessment/Plan Finger sprain (S63.615K: Unspecified sprain of unspecified finger, initial encounter) [...] medications Follow-up With When Contact Information Madhavi Bustamante In 3 days 01/14/[address] [place] [address]- Business (1) Additional Instructions: Patient Education Finger Sprain, Adult Contusion Attestation Patient seen and evaluated by the physician conservation assistant. Attending physician was present in the emergency department and supervised care. This visit was performed by both the physician and an APC. I performed all aspects of the MDM as documented. This report was transcribed using voice recognition software. Every effort was made to ensure accuracy, however, inadvertently computerized blacktop paver operator mistakes may be present. Appropriate healthcare PPE [...] oblique views (more content not included)... Normal [facility] Comment on above: Result Comment: Elec [...] sitting or lying down. Medicines ? Take stmw-utn-mbszanj and prescription medicines only as told by [...] provider. Document Revised: 07/13/2021 Document Reviewed: 07/13/2021 [email or web address] Classifieds Patient Education ? 2022 [employer] Contusion A contusion is a deep [...] any abernathy (more content not included)... Normal [facility] ED Patient Summaryon 023 ED Patient Summary [place] [id number] Patient Discharge Instructions Person Information Name: DARLINE FALCON Age: 22 Years Arrival Date: 01/11/2023 15:30:18 Discharge Diagnosis: Finger sprain; Hand contusion Primary Care Physician: Madhavi Bustamante MD Provider Information Primary Provider: Yash Medina DO Advanced Senior Manager Mmcoe:Derek Salcido PA-C The exam and treatment you received in the Emergency Department were for an urgent problem and are not intended as complete care. It is important that you follow up with a doctor, nurse practitioner, or physician?s conservation assistant for ongoing care. If your symptoms become [...] Address: When: Madhavi [place] [place] [address] Business (1) In 3 days 01/14/2023 In the event that this physician does not participate in your insurance network, please consult with your insurance company to find a nearby participating provider. Patient Education Materials: Finger Sprain, Adult; Contusion A MESSAGE TO ALL PATIENTS REGARDING OPIOIDS PRESCRIPTION OPIOIDS: WHAT YOU NEED TO KNOW Prescription opioids can be used to help relieve uuvuseag-ps-zkewij pain and are often prescribed following a [...] be struggling with addiction, tell your health animal daycare provider and ask for guidance or call [facility] National Helpline at 7-269-812-TIVK. (more content not included)... Normal [facility] XR Hand 3+ Views Lefton 01-01 XR [...] in mGy = na DAP = na [facility] Coding Summary.on 12-12-2022 Coding Summary. CD:[id number] Ww+PGhlYWQ+LA6JKLMwR 95isUNksF1sN1HIIEtOF ywgQVBQTElOSyIgbmFtZ D4lsRIdLGPx IC8+WF0lRDIjDhzzwZVk m0V3pAO1D56uvj1kAAfa qIZ7EIPmQwUbsahsb0cq uHh4EDoqNxahFrLj WLIizX31KLP7lQ37Sh48 nTQmjZIlt1bscNb4FnFx MNKiMEH4bCopOPuyf1Lj WTVvF14olWDhw5M6 IGNvbGxhcHNlOyBlbXB0 mD0xFRrpbvcwb4qxmjek Nau3uw18gFKxm0Z3gLU1 O4ZtamG3BZBecJGz BjkkjBJUfA7tzvfpg5qv fiuqWjHgRVTeTYo7SSd0 NFKecQdeLmXcWM44FVC6 AXGubyJrS6RqUOKi lHlyFyO8c8X4Vr3DN0OI WfouD5PHMRTZAFfpmVB+ EK91hk49A4PsJwghPwb4 EDEgRPL9rLY7yH3s LCHsXNbxt9V7cJE4Y4Ra wrOntx0fv4rtMBBfHYcj S51hnREcz4W6UYMyzOQ6 FSSsfTovGzXqfA21 Oyc+TGLbhPtxl5CvEuea c8kwy2wwaEe9AyhvANLk jgPgdOncNYS6k9LyKi2a TXHkpUD6dJA5aS5h AeCbKfG2SBymD500EaLa lQLgYqdeF44sX2ZmxCI+ IVKqVrz3XCMvyJnpDJ6h C8HdAQWxevrakELh jHcwQK4dGURtqmorUBZe gJ4xSRLoX9u5UsAjGqY9 DAauE9EnABFdarrvJk78 qC1uIdMhZtJ5AUty I0OutpA4EONzuWBeNPuf GLI6I56wt5X3HNOpZYPe UVF6wFO3mJ8nvUxskbsh bGVmdDsgdmVydGlj AXhmIXbhI339MLWzqVqq PkNvZGluZyBEYXRlOiAg MDQvMTEvMjAyMzwvdGQ+ DDDtXRN1iRmbSHGn vWLpMMtzTr4lhBjbsLsw LE2hGJJidzzjMRUivL1b OVCusXMlmEomKA3xXCOc aimlf627OyUqJTP8 SWEkmSThS0NaxX1xPhDi CLErULOgE0VzzHRrBSad H012UZaqUjX0ACMmvgMs K1YqBUJtbPbcQgW8 h7I0De0Pl7JkdasvC5Yu kVJvJfKvQiasGLa6S0Uj PjwvdHI+NA22RCZkZA21 URb8GCI5mCyvHGbe AZLxW5UfcI9xGlWsOLXh ZGRkOyc+PHRhYmxlIHdp ZHRoPScxMDAlJyBzdHls VX2eYk2iHTDsPZFz xUzzkDHmHmCar7orCNZp ESjpOW4uwIhdV7DwiLL3 KKAye5w4Jg44K56hD0Sl dXA+MFOsyAP5gKY0 rO5gIaOsOfJ2VHhwG897 FgZuvWRdZmkbc0mcz0mx oYw2BoA6EWEzfaPzaIzl TYS8v8ZdWd83F76h IHdpZHRoPSIxNSUiIHZh oUxqjl6fuJ3wEn8+PGNv wIS8sSQ9yU3bMmNrGzR8 RScnT323IyAwaUAs Cechu1qxs2xyjDy5VsNa ZUSbluEzzKavTPN2c7Ik Eo85E2AhgBizm1QrQev9 gq23xGTem0J2pVU8 B9IfBGMgirxfgXKbtQrz CS5rFUMaomdxROMddO2b BMEiC9u9YfNvOuN6XHwt Q1EmupK0POOyjBIa KAGtmAWToQ4jhrqwc0li wvatMiQmIEJxDZa2TKg4 HJNnoZfqKxHnMMA7DhS8 YAX3gIWskG3vcPru lswlmH8pIqp+OKK1lOYt nNVKOC6bWuzafUF+PHRk YSW5eGabQFzvFGDgnZ4m ICSwU3j9HtHeIdO6 QAbmY2BeayT7HPGvjKSq MTAhtGAItU3ibmwps5zt swlvVuBbPXTkBSc7BBq9 LWFsaWduOiBsZWZ0 GtK6ATB0sFFbtN2ngUvm gqsjoM0xXym+QmlydGgg IKV2QTf5U0UfLyf7KNBn wOabXQ8yyCCnBFsc Eo7joDwrbPqsSM1sPZLl zuspr476EdAua4crQBXb jBJvBPetIHQ5C49rj4F1 XOEzRWVhSJC4pBJ3 yP7zqXdzkmrooVJxhPau qoIsnPjuKAmwAPpfZ404 YPQfnHsvBhJoPXl3S2Uf Gus2NIDjfNwyWL9j iGYwKEknOj2ncZdboJpc TM3gFURfgqgeb958KaQf d2csZYJblYYqLWsxWOE6 F16qb2B0EWLwTJMx XTE2fAA2uF4otPsjrrlt bGVmdDsgdmVydGljYWwt TDjxD599FVFmkLpwLoLo vLp9D9BoRgs4OKUk uDpeNT2rkBIzHHbjFd5p vVgrePwcAY9hQXXksnqp t729TnQcy2fqXMSbdZCs UQehSIF7O78qh8B1 FTHeQMFuZZJ2pWU6eI9z bGlnbjogbGVmdDsgdmVy sZoeMJqnXOebV496LXCt cDsnPlBhdGllbnQg SQgnJZl9U2MaZanefVD+ SG99MZNeFQ77hBKvhJLn z8yjoNw1MwZpZCShFPJ2 qQaqEZedk3CgPPHv H47exUFgm8T6RZYpsLwz oACpOcJjvCO5nW7aJMnc tmgoj8jhugpkOonbu7ua vb69eG64F53pTVnt ZHRoPSIzMCUiIHZhbGln qe6btA7zNp4+PGNvbCB3 pRG4pQ5gTQEsMoG4PBmn P580SoXlmIVgUskk i5kxd6luxKi2NiJ0LGXk ttXvbJynZDE5c2JnVt61 L48uVYcyJALvPUCxLSEl MKSkjZooja7biG3m Ii8+DSLlpUT2cRQ3hQ7u NqYwLfR6RHvyQ699PxFb bBOnQkncA37cH9ZtsRL+ GBHiXtq1AGOatVts LY1toGTsTVjoZo0wCGY3 FiTcXpVmQOnfP0VgRXHq lhbnjxfgvKG1ZQQbXIEq bO69Pp0aaLdxOPQd kIVQgR1rpwjdo0fefiqz VaVjNJYqQFe5TYh1NMIz wDwfWjNqBXI8WeP5TEP9 kZUskZ9gaTkbdsnd hV6vJ3DjYHTckafaTo75 nL4oFhTqAgG3RGnoJco+ WklNTUVSTUFOLCBJVlkg TDwvdGQ+PHRkIHN0 cPenGFxsGRIpeN8cHDMy Z0i5OeYaTqC3AYhdN6Eo LIIrfkdjXt37uK7yFfZn IuN2WGyeX9OfegF1 YZFigHRbJXkhOKK0M63o r6M0DXMfFLRdURI5pRH6 wM8vvLospbsidRUdwYmo dmVydGljYWwtYWxp G196POJcpOqqNaH5OrLp RrPaIFD1H9LuJje2SVSx gOfpHL2zuNEhAPnrIg1g xLqcnJsjDN1fCHOw cscjSHVomU4zBNMkjQQs aHnyEO7bRZOktetvi227 NgSkADQ0RDQjuKEsS9Wg hF1oWlJvYECtCRDx B9TgrVKpWSagD332IIvu NrA4WHGkdhYsW7LlYNOp gZxwHtI5f4N4Iq0oWfSI ZWFyczwvdGQ+PHRk LFW1fLtnEIsmAPGncU0c JLDsC8r0FlTfViN2YVnn M2GwRPRbewffAq52gW2i FpSvOdC5DUkrH8Hz ejH3QOVxjBOdQLevWFX7 B24rj5J2XBRcRGAwTCU3 wKV6tE0ycGtxoafmuRSi dDsgdmVydGljYWwt JBzlP659TRPyiUpiGzGz bWFsZTwvdGQ+PHRkIHN0 kNoeGDveKIGwsG2dTBMs R6u0XwWaXyA7LSww U7FtOUDmmuhaQu26hL6c VrEeXwI5NRjhR0IzckV9 ACTmkCWdTOswORJ0S78i l5D0EZPwXOHpSNU5 mMA0iA5zaHgxxngjwANo dDsgdmVydGljYWwtYWxp W433FRKekNqfOmClJRTb ZN7swZgsdDR+PC90 sx40G9HuFxtzPie1MDSg XBI1fTU7hC0hFQJrJZcx u9H8qWH3Y7XdfhLwrm7m o9clCHUxFAxlU25p qBGkl8Q2FOLgcIF8QXOe yXogVjEswO60Tsd+PGNv gBwka5KbWkfdu7vfj7fv qYw4EeFjRVMuwlYn vImaEHF7j8GnRp63Z30z IHdpZHRoPSIzMCUiIHZh nUdbag0ywJ3qJd5+PGNv hZS8nPQ0eO3fLvRp GpH2WOgcP996YvZdsPKk Kwxen4hoz5ykqGk6QgKw UVBpczEetVikKWC1e5Fn Ho39J3IyvCros1Rw Nha7jh99lEOqt6X8qWV9 Q5NpGJTiogxufFQuhZvl BR4gPLNeudukSATucO7d JXRjE4f4BoNcCjI5 HIwiB5UyzdZ0EYVenTYs BFQtqBWPlB7sektye1bf bylcNpDsHVQjFFi4VYa6 LWFsaWduOiBsZWZ0 YzX9VTU2zSXoqV9sgAby hdnflW9kFqb+SIg8a5ls bBReZM8zwMA4GR48BC60 cMZov5Q7sVL5A1Ml ZTLjfqwewuiwiFE0OUBm EFRctT08Lt1xeRxrOc6e LPGqUOL8DDMqtSKcR2Uo uD3vCbIpOGMxLJVd P2TqyFWaFKkdH433NIax JeG1NZXdvkWuX4SdLEDj xHaeElQ1y2C0Cm7WPS69 FA60NY85gIIpy4M8 gQJ3Z7EfQIYlfktfxlka sXH3WSRjMIZjtO21Tw4s uRgmWi7mTHUpPZJ3FFYv bWPtG3VyxE9bTlKo AVHkTCNcE8GoiZTtMFyx E001YKlrGjE2GJIyncDd I0WwZOGvwXhyRoI1m5A9 Dh0SKm22ZH63ZN17 nTEiy9R7iDJ8I1XtPJLt hxpsdzlwjLN5BXYdSXFr pH45Kt0gjZylIe6yWVMo ITS6OHGroLSgA6Yk nS7mFvPyCHFlVHRuG3Sc zAWmNNthQ244EGgyRvQ3 KKErwqQbS6OiHLYhtQlx FxR4o5Z9Ob5HJHye jgn3M9XaNfizbDV+PC90 CLZcLK89pEXtrUInl5rf yHh5DbEeJGCrAGN9rYuq BOkvg6MfNVVxF24t pYRqd6M6 (more content not included)... Normal [facility] C Urineon 12-09-2022 Bacteria identified Cx Nom [...] Locations R1: This test was performed at: [facility], [address] [place] [address], [address] , , [facility] Comment on above: Performed By: #### 2 [id number], [id number], [id number] ####[place] [address] [place] [address] BMPon 12-08-2022 Creatinine [Mass/Vol] 0.7 mg/dL Normal 0.5-1.3 [facility] Comment on above: Performed By: #### 2 [id number], [id number], [id number], [id number], [id number], [id number] ####[place] [place] [address] Urea nitrogen [Mass/Vol] 12 mg/dL Normal 5-21 [facility] Comment on above: Performed By: #### 2 [id number], [id number], [id number], [id number], [id number], [id number] ####[facility] [address] [place] [address] Urea nitrogen/Creatinine [Mass ratio] 17 No Units Normal 10-20 [facility] Comment on above: Performed By: #### 2 157281, 2229849, 8778276, 28962884, 0426592, 0688427 ####[facility] [address] [place] [address] Anion gap [Moles/Vol] 9 mmol/L Normal 6-16 [facility] Comment on above: Performed By: #### 2 275197, 7733736, 6893261, 92665071, 0120866, 6196878 ####[facility] [address] [place] [address] Calcium [Mass/Vol] 8.9 mg/dL Normal 8.9-11.1 [facility] Comment on above: Performed By: #### 2 614185, 7022935, 9018976, 46401822, 3197251, 9410886 ####[facility] [address] [place] [address] Chloride [Moles/Vol] 104 mmol/L Normal 101-111 [facility] Comment on above: Performed By: #### 2 732666, 0044151, 7741100, 20872445, 9244030, 5735819 ####[facility] [address] [place] [address] CO2 [Moles/Vol] 26 mmol/L Normal 21-31 [facility] Comment on above: Performed By: #### 2 681765, 0003129, 2499365, 25647643, 0318787, 2478527 ####[facility] [address] [place] [address] Glucose [Mass/Vol] 103 mg/dL Normal 55-199 [facility] Comment on above: Result Comment: If t his glucose result represents a fasting glucose, interpretation should refer to the following reference range: 55-99 mg/dL Performed By: #### 2 393924, 6208823, 3271655, 40791616, 8904708, 4621717 ####[facility] [address] [place] [address] Potassium [Moles/Vol] 3.3 mmol/L Low 3.5-5.3 [facility] Comment on above: Performed By: #### 2 425580, 1312844, 4613217, 24625938, 0709026, 4564219 ####[facility] [address] [place] [address] Sodium [Moles/Vol] 136 mmol/L Normal 135-145 [facility] Comment on above: Performed By: #### 2 233370, 4028841, 8281618, 84331848, 2245935, 8006529 ####[facility] [address] [place] [address] Coding Summary.on 12-08-2022 Coding Summary. CD:[id number] Ww+PGhlYWQ+GX9NAYFbW 56nqRCmlG9rZ0YJMZjPV ywgQVBQTElOSyIgbmFtZ U4ofGKnKGTo IC8+RJ0dQKZzActytEKn t4X4yBA7Z74kyo1wRVjv nEH6FDOuZlNylsxca1jr gPm1EFzvZbeuNqYv LZRunQ49LNI5sD13Hw21 mYQscWIix9lfpMt1SbSu BANxAHH5uOwpBEwpj4Is QYIvK77ngCDdu3W2 IGNvbGxhcHNlOyBlbXB0 fU1wQBcodfnuv1wkxpaz Xpw0ua58hRPsl7U7hGN6 J6CssxM4JCFyrTEz KganoUEHeT7rxnkgo7nq cqkeEhWzYZZgAVo9OUp3 NPDpbVnoXrTeCX52MGU0 KFThwrPnH3HkJJYu fArvZoW8i5F8Mj7OE1YY OfpsQ2QRUTCWIGestWU+ PQ13tx69L1DaWgsyYvi8 HVPtCPW0iHU1hW2c QLMeVJzfx3Y2tWR5W6Vf rdEbnu5ud9ddGYUvCYsr V30lvYHat2C3YQZbzWF6 LHHaxNpfUpOpcT84 Oyc+HQTckSvyy1JlIkou a1sck4svyXp1PswfSXTs wpWsvZueLOK5w8TvLv0l HDWwdHO8pVH0uI3v OuMgQqZ9HTbvZ738ZkCr rYJiLcgcT99vT5KkgRU+ SHJtAvq8DDNplIfqVF0s Q8TkDMMxgcwnqETl aGetDF8tEKBbewyjQNVj vE3wVIVsR8x6QoVdDyN8 UGcxF3SwRANmhzekLp13 zE1uQcJpIkY6IAzr R1OxxaR8MSGboRYpJNzw LYM4O16jv1W3KCOjBEIm NYC2xNM6tQ1khFzrtzpj bGVmdDsgdmVydGlj IJanHNfyS105BTVrnJtu PkNvZGluZyBEYXRlOiAg MDQvMDcvMjAyMzwvdGQ+ HBHdFLK8bYjxLGDt wBEbCHxbCw5gfJmdnYsv LJ7cZCIozdowLQVrlW2q GUXztNOrtTopPB6rIEKf jvgct789JcEiUNC1 HTBryPSwU2SweM5lMiFz UGAwABJwP0ExeKJcRDbz E620FHwkYaV9HUQhozWg Y2GdOWBluWotObS1 h5Q3Zk8Jb2OflizsR1Dm bBMbGlByCuanPQb8J2Ur PjwvdHI+ZX89OHMuSQ74 IRn4RJY9mVwwSNvh LUYgR1BeeR1iVjNzXKYt ZGRkOyc+PHRhYmxlIHdp ZHRoPScxMDAlJyBzdHls KU1pWg2dFXAfOCVv uBcqyWLzXtKye4wdYITm YWjkMZ6wmHqsK7LfkVT1 RJUcb7q3Yd76Z22bD6Wz dXA+QEWlfSC7xUR8 jP9jIcXeMhG5UDwbG625 KcDqjVFaBqvow6rnq0fd cIp4BoN3GPFbxoWjrHmp IVU3c6DkWj70H85k IHdpZHRoPSIxNSUiIHZh kTbagu9apD2vPp2+PGNv oAN4dOD3cL1jZwWdJnK1 WNjxZ990PlCnqLCm Zzfxd9ksw7wwrTm9EkEe KPEiatTbsFbmINO1k0Fn Gc45A9JbcCmxi9YfZoi3 dj65sBAfx7S5sLT4 N5FfJMRobibcxFAuzHzd CK3jIVQziqqkROFnhO9r AIHsJ6m8QoZhBhC4KOlr M2OwyjY9JYZdwQVh XLFbgVXKwR4nmtuaf5dn fkvzXiGhMXYaQGu9FLt3 GGCnyVhiHyWzXYQ0FmO6 YET6aDAkhK9tkImw atotkQ9mTbv+FTI4iUQu zUOBIB0mOmrtoNY+PHRk ROE9aCljPYcuOYSsgF7j YABfS7g0JrJrXhA8 RTsuA2NcfvK3YYSmzDZm EHWonMCIeZ2uufmiv2ib scebWwVjAZLiLFl3TUw4 LWFsaWduOiBsZWZ0 JiJ5HJB6zTIuoU1hkCnj xqkblV6zCys+QmlydGgg ONR2GXm0P3LmKqb7FQQm lFukSO7sjKDvZMtw Rw2kmTknyVjdZH9lAPSt ofzdm312HeElh2tfWVDd qAYoZRksIQP3X96cw4V6 PVZpESEoRIO1yTU6 cW4vkOxauvrxdBKajQzl fiScxEzlHEhoEAtfS730 IBIpmKemMqAvZLw1D6Sb Hpl4UNTucShjUK5y uHScRBgfQa8vaZlzdWod MH3cWXZdninyv403KtUo v5llWNQheMVpJTkhEGH3 C92gg7Y2RFFsVCSu KFF0qVK8uI7feJntpbdo bGVmdDsgdmVydGljYWwt NNalN501KTOjkMlaGdIl nYk5X0OhSyf3QXXy cEuoMD9agHPdPZixDq3c uZkdiWdtQI7oQCTzpybe d328DgKml9tzGUNucWMh VAnyYLS1Z44cl4N4 HPJxJQZqELY4pWD3rV2u bGlnbjogbGVmdDsgdmVy hLxuKRfdWQpiJ786TJEf cDsnPlBhdGllbnQg NUcdZAq7J8XiMetiqJB+ TY68GIEpMY23nFPmnNYl i9dtgBc3HqViINLvWQZ4 tIvfBRiyw7TyDRFl D51rwEWvj7E5CSDopSzr iFRvTmSjcOI9lF0vZHxz kzpax0ehrmifIytnj3wo ja26lE33F21sPAod ZHRoPSIzMCUiIHZhbGln ke4scF7mXs2+PGNvbCB3 kTI8yC1vCJXkHnD9FKxs F410VoQnlRQmOfau x0mpf1srzXa2BlT2PAYq xlYevYpsUTN4e7GwJs64 P96uHMrgPNFzFOYiHNYn WAUgoIndmn6ghQ1w Ii8+TPWfbYG2oXP4lU4j LoLsQlK7WBgdH822AsNl iTSyQksaX90cH1MxcXI+ IYCkSlt8NADxhHxg NO8foJPbIZckPt7tGVS8 XeAiHbEpFRywB7QyYRGq vlftzztyaJB1RFPsDHPw yN01Ae0rnPfwJHPq hMVBxW1vljizu4ztejzb FfDfSQNcNWv3FFz3JCLi vUfcZoAdWPF2ImL8CGC9 kCBzsZ6lyZmqfakh zX7wO9DtDEPmhxdlPr52 pJ7fOtMpCiJ4KPtpQui+ WklNTUVSTUFOLCBJVlkg TDwvdGQ+PHRkIHN0 qZoaARmrZZKepJ4mJPSa Z0y5QnHgCeJ6UIwxB5Tz AWGhhpygQt68mG9nLbNx YgU8WKhnL6EnjrF3 DLOnrQRlCPftQZO1A12v m5P6HLWiNJBtFNO5rBB6 gW0ffHsvxcvgpWJihYxm dmVydGljYWwtYWxp K762MATsiScdQjH0WvZp HhPmFTI2D5TjFgb4XTIe dZvfBD7hxQFwYRxvCu8y vVcutOkkSZ4bUZTr puylDDSnhI5mTNAhaXFw mLgfGP5mBBExnzgga301 WhBtYVN8JZNylZQrT4Xa rQ5qMaRuJJHjAOIj I2ZyjFWzAAtyJ182UPug CgS9PBBmiqWfY5RcCWWa nYqbSxY6c8B8Cu8dHfCV ZWFyczwvdGQ+PHRk YWR3zRdcGPkfJBKbiO3q CRMrG9g1AgHdOcF0JRxa N7WxBUNcvfggCb31rD9h DeYqEeL0SMbqC9Es fuL3HDVyvDGcDMwiECX1 B49eg6O9MDMgRMMbKWW0 uMY4zW6wvYcrtsyrgSHp dDsgdmVydGljYWwt IYaeT429YBCzqIwyRqDe bWFsZTwvdGQ+PHRkIHN0 zXgxZFhlUKNpwP7bTJFl L7c4LxIpZnP4HLlg U2CpROLrzhndUo28gW8x HgCrDbT8TCotI6OwvkN0 FIVcvTLoHVnvARP1M10d a2T8MCJnQKMaLFE5 wCX0lB8ewHcegyfwnMKh dDsgdmVydGljYWwtYWxp W259BDRztOfxIu68wLHy uIdwgkF1P5GjCyad dHI+HV62FIAoRG56sDHh bEGxu5piiIx0YrPkQMVn SAQ3fKiuUQnds1AvPHGv K35ipLOeh0D3JNCd sCxyuBHmEeRcbHS4nK0z ZKoytfnil7llukdyOkws u1wygu06zP57G01sHQqe ZHRoPSIzMCUiIHZh nZphwa6xrY9tBa6+PGNv mTM0eCL4kC6vKaNqVlN3 AWjjX580RmUxeMQmYgdt u4dne1zytZd4XdHn SBCqpvUzvZucRJI7o8Ut Jp57T38wELrlFJTiJVFh NRXrQQDkcNausv5ukZ7d Ii8+GS3mm1ophe79 fG11xFW+OLYrOMT0fFkg PVydVHBsjX1kGIchJhX3 HHNrAuQkkL27lTUgAQlk Bp5zjNajsZhkSZ1l ZHNmytvxl822UkNjo1vx BIDgyUJiBPcbPAJ7D96p h0S3QGEaAVIwDVR2eOV3 dN7bxViahtugfMGl dDsgdmVydGljYWwtYWxp Z583AEQveXwcBoJakDBl M5mmdlCTZY1pHznaiMP+ JSLbPRI1xLjiGKuz GERjcO6wPOYrB2j5IpEd UqV9KWahR9DvhaF9VVOv dXQpGLUhtVPLxK2yjffv y2xdxklzAfUvRVJz EXy1JJe9KMMmqHyeTbMu SVE5SxW2NCP9gPNafQ6s bGnypbgreW7gKzz+RklO OjwvdGQ+PHRkIHN0 uKinDMjuXERuvE5vLIIs A2b3VlCmHxH1POlsX5Ed hvW7WFEdaVLtZIEdrGLY fY2rbrsyf8lrkyqb EyCrEDCoUJz7PYb0QPLn iMlpAqVmKLI0FaZ7OPY5 oOFdxR9gzRyspgmzcL7q Oyc+TVJOOjwvdGQ+ TFArZNI9aPglTIuaREBx nJ0jDGOiM1a0InAcUxW2 NCwbG9DostY1JBKpdNDb LTCeqEDQjD6zkwek f6jpupzyYhCgNJYfSCr3 ASe8VGJndOgjSlQjTMD2 YrB5YTE3iPRfdD0qmNyy tnnzmK2bNhr+UGF5 PAK1XT93OZ30W1HmVvqg dGFibGU+PHRhYmxlIHdp ZHRoPScxMDAlJyBzdHls IW0nWo7lVIGiCXMb bGxhcHNl (more content not included)... Normal [facility] Discharge Instructionson Discharge Instructions [id number]# 1.00CD:127 Normal [facility] ED Clinical Summaryon 2022 ED Clinical Summary [place] [id number] ED Clinical Summary Person Information Name: DARLINE FALCON Mary Beth/[facility] Age: 22 Years : 2000 Sex: Female Language: Amharic PCP: Madhavi Bustamante MD Marital Status: Single Phone: [phone] Visit Id: Visit Reason: Nausea; Abdominal pain; [...] 12/07/2022 23:48:57 12/07/2022 23:48:57 12/07/2022 23:48:57 ADDRESS: [address] [place] [id number] PHYS DOC NOTES: MEDICAL INFORMATION: Prescriptions Given: New Medications [id number], [address] [place] [id number], [phone] dicyclomine (Bentyl 10 mg Cap) 1 Capsules By Mouth 4 times a day as needed Pain for 7 Days. Refills: 0. Medications to Continue Taking That Have Changed [id number], [address] [place], [place] [id number], [phone] START: ondansetron (Zofran 4 mg Tab) 1 [...] up: With: Address: When: Fernando Clark [address], [address] [place], [place] [phone] Business (1) In 3 days 12/10/2022 Comments: General surgeon in [place] With: Address: When: Willie LOZADA [address], [address], [facility] [address] [place] [address] Business (1) In 3 days 12/10/2022 Comments: General surgeon at [place] With: Address: When: Please return to the ED with any new or worsening symptoms including worsening pain, fevers and chills, worsening nausea and inability to tolerate a liquid diet. With: Address: When: You may follow with the general surgeon recommended to by your primary care provider. You have also been provided with the information for the local [facility] general surgeons. DIAGNOSIS: Cholelithiases; Nausea Normal [facility] ED Note-Physicianon 12-09-19 ED Note-Physician Basic Information Time Seen: Paul JAMESuLpis 12/07/2022 21:34 Chief Complaint Has had abdominal [...] day(s), # 28 cap(s), Refills(s) 0, [id number] 167.6, cm, 12/07/22 21:32:00 EDT, Height/Length [...] day(s), # 12 tab(s), Refills(s) 0, [id number] 167.6, cm, 12/07/22 21:32:00 EDT, Height/Length [...] Clark In 3 days 12/10/2022 EDT [address] [facility], [address] [place] [phone] Business (1) Additional Instructions: General surgeon in [place] Willie LOZADA In 3 days 12/10/2022 EDT [address] (more content not included)... Normal [facility] Comment on above: Result Comment: Elec tronically [...] added (diluted fruit juice). ? Eat bland, mgdw-vm-chmrhh foods in small amounts as you are able. These foods include bananas, applesauce, rice, lean meats, toast, and crackers. ? Avoid fluids that contain a lot of sugar or caffeine, such as energy drinks, sports drinks, and soda. ? Avoid alcohol. ? Avoid spicy or fatty foods. General instructions ? Take wcrp-xvl-banxnpi and prescription medicines only as told by your health care provider. ? Drink enough fluid to keep your urine pale yellow. ? Wash your hands often using soap and water. If soap and water are not available, use hand charge entry specialist. ? Make sure that all people in [...] and drinking to prevent dehydration. ? Take zuwj-pkg-dzdtkkl and prescription medicines only as told by [...] 08/20/2006 Document Revised: 12/12/2019 Document Reviewed: 01/28/2019 [employer] Patient Education ? 2020 [employer] Cholelithiasis Cholelithiasis is a form of gallbladder [...] yellow-green in (more content not included)... Normal [facility] ED Patient Summaryon 023 ED Patient Summary [place] [id number] Patient Discharge Instructions Person Information Name: DARLINE FALCON Age: 22 Years Arrival Date: 12/07/2022 21:25:41 Discharge Diagnosis: Cholelithiases; Nausea Primary Care Physician: Dianna PALOMO, Madhavi Saravia Provider Information Primary Provider: Yash Medina DO Advanced Senior Manager Mmcoe:Lupis Miller PA-C The exam and treatment you received in the Emergency Department were for an urgent problem and are not intended as complete care. It is important that you follow up with a doctor, nurse practitioner, or physician?s conservation assistant for ongoing care. If your symptoms become [...] Instructions: With: Address: When: Fernando Clark [address], [address] [place], [place] [phone] Business (1) In 3 days 12/10/2022 Comments: General surgeon in [place] With: Address: When: Willie LOZADA [address], [address], [place] [phone] Business (1) In 3 days 12/10/2022 Comments: General surgeon at [place] With: Address: When: Please return to the ED with any new or worsening symptoms including worsening pain, fevers and chills, worsening nausea and inability to tolerate a liquid diet. With: Address: When: You may follow with the general surgeon recommended to by your primary care provider. You have also been provided with the information for the local [facility] general surgeons. In the event that this physician does not participate in your insurance network, please consult with your insurance company to find a nearby participating provider. Patient Education Materials: Nausea and Vomiting, Adult; Cholelithiasis A MESSAGE TO ALL PATIENTS REGARDING OPIOIDS PRESCRIPTION OPIOIDS: WHAT YOU NEED TO KNOW Prescription opioids can be used to help relieve pyrvvfoa-xw-nepwuk pain and are often prescribed following a [...] Store prescription (more content not included)... Normal [facility] Hep Func Panelon 12-08-2022 Albumin [Mass/Vol] 4.4 g/dL Normal 3.3-5.0 [facility] Comment on above: Performed By: #### 2 244269, 0402786, 9878241, 25987933, 4096372, 0641478 ####[facility] [address] [place] [address] Albumin/Globulin (S) [Mass conc ratio] 1.3 Normal 1.1-2.2 [facility] Comment on above: Performed By: #### 2 471528, 1665371, 4579171, 23815805, 7419813, 2644267 ####[facility] [address] [place] [address] ALP [Catalytic activity/Vol] 65 Int._Unit/L Normal 21-98 [facility] Comment on above: Performed By: #### 2 107638, 0295268, 6410148, 15747609, 6546878, 0373829 ####[facility] [address] [place] [address] ALT No additional P-5'-P [Catalytic activity/Vol] 20 Int._Unit/L Normal 6-46 [facility] Comment on above: Performed By: #### 2 041267, 0794228, 7508403, 71946728, 8209798, 5904847 ####[facility] [address] [place] [address] AST [Catalytic activity/Vol] 19 Int._Unit/L Normal 5-43 [facility] Comment on above: Performed By: #### 2 975442, 4885841, 2212707, 09429343, 0549225, 6010731 ####[facility] [address] [place] [address] Bilirubin [Mass/Vol] 1.7 mg/dL High 0.0-1.1 [facility] Comment on above: Performed By: #### 2 421769, 6310641, 3824183, 26921457, 9085818, 8446131 ####[facility] [address] [place] [address] Bilirubin.direct [Mass/Vol] 0.2 mg/dL Normal 0.1-0.4 [facility] Comment on above: Performed By: #### 2 410631, 2118121, 8138969, 61802197, 8939403, 6668788 ####[address] [address] Bilirubin.indirect [Mass or moles/Vol] 1.5 mg/dL High 0.1-0.9 [facility] Comment on above: Performed By: #### 2 472208, 7289351, 0669153, 65513505, 0197123, 9161949 ####[place] [address] [place] [address] Globulin (S) [Mass/Vol] 3.3 g/dL Normal 1.4-4.0 [facility] Comment on above: Performed By: #### 2 753996, 3495489, 6061211, 99422780, 2352455, 8607629 ####[address] [address] Protein [Mass/Vol] 7.7 g/dL Normal 6.0-7.8 [facility] Comment on above: Performed By: #### 2 876215, 6439785, 0851382, 04231257, 9617885, 5773021 ####[place] [address] [place] [address] Lipase Levelon 12-08-2022 Lipase [Catalytic activity/Vol] 39 U/L Normal 13-58 [facility] Comment on above: Performed By: #### 2 575558, 8715156, 6057531, 83833347, 8515424, 6219627 ####[facility] [address] [place] [address] U BetaHcg Qualon 12-08-2022 HCG.beta subunit (U) [Moles/Vol] Negative Normal [facility] Comment on above: Performed By: #### 2 3295822, 77925571, 6681572 ####[facility] [address] [place] [address] UA With Cult Reflexon 2022 Bacteria LM Ql (Urine sed) 1+ /HPF Abnormal Trace [facility] Comment on above: Performed By: #### 2 1362224, 51473409, 8651662 ####[place] [address] Bilirubin Ql (U) Negative Normal Negative [facility] Comment on above: Performed By: #### 2 6518236, 88524371, 4735338 ####[place] [address] Clarity (U) CLEAR Normal Clear [facility] Comment on above: Performed By: #### 2 8302374, 59551511, 9493436 ####[address] [address] Color (U) YELLOW Normal Yellow [facility] Comment on above: Performed By: #### 2 3427372, 64995998, 2284956 ####[address] [address] Epithelial cells.squamous LM.HPF (Urine sed) [#/Area] 3-4 Normal 0-2 [facility] Comment on above: Performed By: #### 2 4453278, 80537764, 7021040 ####[address] [address] Glucose Test strip (U) [Mass/Vol] Negative Normal Negative [facility] Comment on above: Performed By: #### 2 0387384, 27029641, 1705782 ####[facility] [address] [place] [address] Hemoglobin Ql (U) TRACE Abnormal Negative [facility] Comment on above: Performed By: #### 2 0935462, 45744395, 3484687 ####[facility] [address] [place] [address] Ketones (U) [Mass/Vol] Negative Normal Negative [facility] Comment on above: Performed By: #### 2 2726507, 58697830, 1957779 ####[facility] [address] [place] [address] [place].plasma/Lithiu m.RBC (Bld) [Mass ratio] 0-3 Normal 0-3 [facility] Comment on above: Performed By: #### 2 2123552, 63207718, 6808674 ####[facility] [address] [place] [address] Nitrite Ql (U) Negative Normal Negative [facility] Comment on above: Performed By: #### 2 6968560, 76870709, 7810254 ####[facility] [address] [place] [address] pH (U) 6.0 [pH] Invalid Interpretation Code 5.0-9.0 [facility] Comment on above: Performed By: #### 2 4535937, 67650098, 0588044 ####[address] [address] Protein (U) [Mass/Vol] Negative Normal Negative [facility] Comment on above: Performed By: #### 2 8150602, 28209704, 2355977 ####[facility] [address] [place] [address] Specific gravity (U) [Rel density] 1.020 Invalid Interpretation Code 1.005-1.030 [facility] Comment on above: Performed By: #### 2 1114891, 62706795, 8154225 ####[facility] [address] [place] [address] Type of Urine collection method Clean Catch Normal [facility] Comment on above: Performed By: #### 2 4415103, 16132397, 8961574 ####[facility] [address] [place] [address] Urobilinogen Qn (U) 0.2 {Tuan'U}/dL Normal 0.0-1.0 [facility] Comment on above: Performed By: #### 2 1230654, 33129051, 8683698 ####[facility] [address] [place] [address] WBC Auto Ql (U) 2+ Abnormal Negative [facility] Comment on above: Performed By: #### 2 8008714, 72084094, 4499592 ####[place] [address] [place] [address] WBC LM.HPF (Urine sed) [#/Area] 6-15 Abnormal 0-5 [facility] Comment on above: Performed By: #### 2 5901060, 92882102, 6483440 ####[facility] [address] [place] [address] eGFRon 12-08-2022 GFR/1.73 sq M.predicted among blacks MDRD (S/P/Bld) [Vol rate/Area] mL/min/{1.73_m2} Normal >=59 [facility] Comment on above: Order Comment: Order added by Discern Expert. Result Comment: eGFR is race adjusted. AA=. Performed By: #### 2 182623, 3930673, 9113523, 49936329, 8050355, 6549070 ####[facility] [address] [place] [address] GFR/1.73 sq M.predicted among non-blacks MDRD (S/P/Bld) [Vol rate/Area] mL/min/{1.73_m2} Normal >=59 [facility] Comment on above: Order Comment: Order added by Discern Expert. Result Comment: [employer] asaf kidney disease could be indicated at eGFR's of less than 60 mL/min/1.73m2. Kidney failure is indicated at less than 15 mL/min/1.73m2. Performed By: #### 2 003327, 3382464, 1075845, 43072185, 1235569, 1119729 ####[facility] [address] [place] [address] Auto Diffon 12-07-2022 Basophils/100 WBC (Bld) 0.4 % Normal 0.0-2.0 [facility] Comment on above: Order Comment: Order Added by Discern Expert. Performed By: #### 2 572635, 3520493, 7096442, 65741341, 9856658, 7609306 ####[place] [address] [place] [address] Basophils/Leukocytes Auto (Bld) [Pure # fraction] 0.0 E9/L Normal 0.0-0.2 [facility] Comment on above: Order Comment: Order Added by Discern Expert. Performed By: #### 2 098128, 5220813, 8660743, 87858893, 2179710, 7069736 ####[address] [address] Eosinophils/100 WBC (Bld) 3.1 % Normal 0.0-8.0 [facility] Comment on above: Order Comment: Order Added by Discern Expert. Performed By: #### 2 288231, 0437893, 5494672, 95024284, 0558086, 5090717 ####[place] [address] [place] [address] Eosinophils/Leukocyte s Auto (Bld) [Pure # fraction] 0.3 E9/L Normal 0.0-0.5 [facility] Comment on above: Order Comment: Order Added by Discern Expert. Performed By: #### 2 834968, 2848876, 5661713, 35853939, 3321441, 9301227 ####[address] [address] Lymphocytes/100 WBC (Bld) 17.3 % Normal 14.0-50.0 [facility] Comment on above: Order Comment: Order Added by Discern Expert. Performed By: #### 2 947563, 6727652, 8452685, 23099094, 1994475, 8339588 ####[place] [address] [place] [address] Lymphocytes/Leukocyte s Auto (Bld) [Pure # fraction] 1.8 E9/L Normal 1.0-4.0 [facility] Comment on above: Order Comment: Order Added by Discern Expert. Performed By: #### 2 745434, 1567413, 6852046, 36667986, 1913298, 3059548 ####[place] [address] [place] [address] Monocytes/100 WBC (Bld) 5.8 % Normal 4.0-14.0 [facility] Comment on above: Order Comment: Order Added by Discern Expert. Performed By: #### 2 686418, 2347433, 5794071, 12633660, 8886923, 7988656 ####[address] [address] Monocytes/Leukocytes Auto (Bld) [Pure # fraction] 0.6 E9/L Normal 0.2-1.0 [facility] Comment on above: Order Comment: Order Added by Discern Expert. Performed By: #### 2 859494, 6065615, 4950358, 22706948, 6315757, 4690578 ####[place] [address] [place] [address] Neutrophils/100 WBC (Bld) 73.4 % Normal 36.0-75.0 [facility] Comment on above: Order Comment: Order Added by Discern Expert. Performed By: #### 2 327338, 1560854, 9348378, 39052301, 2665368, 1540539 ####[place] [address] [place] [address] Neutrophils/Leukocyte s Auto (Bld) [Pure # fraction] 7.9 E9/L High 2.0-7.5 [facility] Comment on above: Order Comment: Order Added by Discern Expert. Performed By: #### 2 783222, 7516241, 3708116, 78380483, 1839400, 6864576 ####[address] [address] CBC w/ Auto Diffon 3 Erythrocyte distribution width (RBC) [Ratio] 13.9 % Normal 10.9-14.2 [facility] Comment on above: Performed By: #### 2 339254, 4192991, 8622588, 64971081, 7261287, 1800070 ####[place] [address] Hematocrit (Bld) [Volume fraction] 44.1 % Normal 34.0-46.0 [facility] Comment on above: Performed By: #### 2 882719, 2766098, 0709272, 15016455, 6892169, 6377546 ####[address] [address] Hemoglobin (Bld) [Mass/Vol] 15.3 g/dL Normal 12.0-16.0 [facility] Comment on above: Performed By: #### 2 367637, 8080250, 3314767, 89532291, 4512529, 3288147 ####[address] [address] MCH (RBC) [Entitic mass] 30.0 pg Normal 27.0-34.0 [facility] Comment on above: Performed By: #### 2 800714, 3205912, 7915054, 34775038, 9666169, 7782983 ####[address] [address] MCHC (RBC) [Mass/Vol] 34.8 g/dL Normal 31.4-36.0 [facility] Comment on above: Performed By: #### 2 930634, 1976274, 6614861, 57614483, 0773485, 2877323 ####[address] [address] MCV (RBC) [Entitic vol] 86.4 fL Normal 80.0-100.0 [facility] [place] Comment on above: Performed By: #### 2 896176, 3368680, 7043098, 14685123, 2334168, 4606539 ####[facility] [place] [id number] [place] [address] Platelet mean volume (Bld) [Entitic vol] 8.7 fL Normal 6.4-10.8 [facility] [place] Comment on above: Performed By: #### 2 527253, 2410408, 1187075, [id number], 8520704, [id number] ####[facility] [place] [id number] [place] [address] Platelets (Bld) [#/Vol] 221.0 E9/L Normal 150.0-500.0 [facility] [place] Comment on above: Performed By: #### 2 833046, 5219480, 7575410, 18424814, 8491648, 5415199 ####[address] [address] RBC (Bld) [#/Vol] 5.1 E12/L Normal 4.3-5.9 [facility] [place] Comment on above: Performed By: #### 2 626656, 6656637, 8026939, 26360203, 9873474, 3530683 ####[id number] [place] [address] WBC corrected for nucl RBC Auto (Bld) [#/Vol] 10.7 E9/L Normal 4.0-11.0 [facility] [place] Comment on above: Performed By: #### 2 724910, 9555701, 6780452, 56969089, 7854753, 1984122 ####[address] [place] [address] CHEMISTRYOrdered By: SYSTEM SYSTEM on 12-07-2022 Albumin [...] mEq/L [facility] Rem[facility] AST [Catalytic activity/Vol] 19 [iU]/d Normal [...] Normal 0.5 - 1.3 mg/dL [facility] Remisol GFR/1.73 sq M.predicted among blacks MDRD (S/P/Bld) [Vol rate/Area] mL/min/1.73 m2 Normal >=59mL/min/1. 73 m2 [facility] Chem S GFR/1.73 sq M.predicted among non-blacks MDRD (S/P/Bld) [Vol rate/Area] mL/min/1.73 m2 Normal >=59mL/min/1. 73 m2 [facility] Chem S Globulin (S) [Mass/Vol] 3.3 g/dL Normal 1.4 - 4.0 gm/dL [facility] Glucose [Mass/Vol] 103 mg/dL Normal 55 - 199 mg/dL [facility] Lipase [Catalytic activity/Vol] 39 U/L Normal 13 - 58 unit/L [facility] Potassium [Moles/Vol] 3.3 mmol/L Low 3.5 - 5.3 mmol/L [facility] Protein [Mass/Vol] 7.7 g/dL Normal 6.0 - 7.8 gm/dL [facility] Sodium [Moles/Vol] 136 mmol/L Normal 135 - 145 mmol/L [facility] Urea nitrogen [Mass/Vol] 12 mg/dL Normal 5 - 21 mg/dL [facility] Urea nitrogen/Creatinine [Mass ratio] 17 mg/mg Normal 10 - 20 [facility] Remisol Consent for Treatmenton Consent for Treatment [id number] #1.00CD:127 Normal [facility] HEMATOLOGYOrdered By: SYSTEM SYSTEM on 12-07-2022 Basophils/100 [...] 17.3 % Normal 14.0 - 50.0 % [facility] HemeAutoSS Lymphocytes/Leukocyte s Auto (Bld) [Pure # fraction] 1.8 E9/L Normal 1.0 - 4.0 E9/L [facility] HemeAutoSS Monocytes/100 WBC (Bld) 5.8 % Normal 4.0 - 14.0 % [facility] HemeAutoSS Monocytes/Leukocytes Auto (Bld) [Pure # fraction] 0.6 E9/L Normal 0.2 - 1.0 E9/L [facility] HemeAutoSS Neutrophils/100 WBC (Bld) 73.4 % Normal 36.0 - 75.0 % [facility] HemeAutoSS Neutrophils/Leukocyte s Auto (Bld) [Pure # fraction] 7.9 E9/L High 2.0 - 7.5 E9/L [facility] HemeAutoSS HEMATOLOGYOrdered By: Alliso n Evangelina on 12-07-2022 Erythrocyte distribution width (RBC) [Ratio] 13.9 % Normal 10.9 - 14.2 % [facility] HemeAutoSS Hematocrit (Bld) [Volume fraction] 44.1 % Normal 34.0 - 46.0 % [facility] HemeAutoSS Hemoglobin (Bld) [Mass/Vol] 15.3 g/dL Normal [...] PM) Normal Negative [facility] UA Auto SS [place].plasma/Lithiu m.RBC (Bld) [Mass ratio] 0-3 /HPF Normal 0-3/HPF [facility] UA Auto SS Nitrite Ql (U) Negative (12/07/22 9:55 PM) Normal Negative [facility] UA Auto SS pH (U) 6.0 *NA* (12/07/22 9:55 PM) Invalid Interpretation Code 5.0 - 9.0 [facility] UA Auto SS Protein (U) [Mass/Vol] Negative (12/07/22 9:55 PM) Normal Negative [facility] UA Auto SS Specific gravity (U) [Rel density] 1.020 *NA* (12/07/22 9:55 PM) Invalid Interpretation Code 1.005 - 1.030 [facility] UA Auto SS UA Spec Desc Clean Catch (12/07/22 9:55 PM) Normal [facility] UA Auto SS Urobilinogen Qn (U) 0.2171647 {Tuan'U}/dL Normal 0.0 - 1.0 EU/dL [facility] Auto SS WBC Auto Ql (U) 2+ *ABN* (12/07/22 9:55 PM) Invalid Interpretation Code Negative [facility] UA Auto SS WBC LM.HPF (Urine sed) [#/Area] 6-15 /HPF Invalid Interpretation Code 0-5/HPF [facility] UA Auto SS ANGEL w/Reflex if POSon 2022 Nuclear Ab Ql (S) Negative Invalid Interpretation Code Negative [facility] Comment on above: Result Comment: Perf ormed at: [facility] [address] [id number] PhD Octaviano Chen Performed By: #### 1 6555393, 8486587, 31166318, 72815194, 93972467, 3791916, 5280799, 8309000 ####[facility] [address] [place] [address] Auto Diffon 12-04-2022 Basophils/100 WBC (Bld) 0.6 % Normal 0.0-2.0 [facility] Comment on above: Order Comment: Order Added by Discern Expert. Performed By: #### 1 2689240, 5313566, 56782631, 19578637, 20097378, 6025050, 2977984, 7439503 ####[address] [place] [address] Basophils/Leukocytes Auto (Bld) [Pure # fraction] 0.0 E9/L Normal 0.0-0.2 [facility] Comment on above: Order Comment: Order Added by Discern Expert. Performed By: #### 1 6740079, 4114460, 44527004, 78612255, 68056817, 0697429, 8464869, 0946545 ####[address] [address] Eosinophils/100 WBC (Bld) 5.5 % Normal 0.0-8.0 [facility] Comment on above: Order Comment: Order Added by Discern Expert. Performed By: #### 1 5331169, 5055298, 94774335, 83253334, 09001990, 7905462, 4275453, 1700119 ####[address] [address] Eosinophils/Leukocyte s Auto (Bld) [Pure # fraction] 0.4 E9/L Normal 0.0-0.5 [facility] Comment on above: Order Comment: Order Added by Discern Expert. Performed By: #### 1 6015133, 4058690, 94558848, 92747392, 93556996, 4517926, 3428306, 9527135 ####[address] [place] [address] Lymphocytes/100 WBC (Bld) 32.2 % Normal 14.0-50.0 [facility] Comment on above: Order Comment: Order Added by Chanell Expert. Performed By: #### 1 6992999, 7502261, 42500660, 22202811, 06364127, 1365271, 1662964, 1495190 ####[address] [address] Lymphocytes/Leukocyte s Auto (Bld) [Pure # fraction] 2.5 E9/L Normal 1.0-4.0 [facility] Comment on above: Order Comment: Order Added by Discern Expert. Performed By: #### 1 2069569, 8587335, 59042592, 81631293, 44821520, 2544101, 5645923, 9747175 ####[facility] [address] [place] [address] Monocytes/100 WBC (Bld) 6.7 % Normal 4.0-14.0 [facility] Comment on above: Order Comment: Order Added by Discern Expert. Performed By: #### 1 5758528, 7944673, 21884942, 95051804, 73187524, 3321744, 1766997, 1558388 ####[address] [place] [address] Monocytes/Leukocytes Auto (Bld) [Pure # fraction] 0.5 E9/L Normal 0.2-1.0 [facility] Comment on above: Order Comment: Order Added by Chanell Expert. Performed By: #### 1 6688045, 7353057, 68503721, 10463453, 68352624, 7515417, 2808947, 6774900 ####[address] [place] [address] Neutrophils/100 WBC (Bld) 55.0 % Normal 36.0-75.0 [facility] Comment on above: Order Comment: Order Added by Discern Expert. Performed By: #### 1 2796068, 3828241, 13251494, 15225682, 49117402, 0283977, 8661703, 5170475 ####[facility] [address] [place] [address] Neutrophils/Leukocyte s Auto (Bld) [Pure # fraction] 4.2 E9/L Normal 2.0-7.5 [facility] Comment on above: Order Comment: Order Added by Chanell Expert. Performed By: #### 1 9886807, 0235214, 13140571, 06243589, 43029555, 0522738, 9313407, 6184513 ####[facility] [address] [place] [address] CBC w/ Auto Diffon 3 Erythrocyte distribution width (RBC) [Ratio] 13.9 % Normal 10.9-14.2 [facility] Comment on above: Performed By: #### 1 8436598, 8339295, 58920244, 73827942, 55902257, 8835760, 7199685, 5246832 ####[address] [place] [address] Hematocrit (Bld) [Volume fraction] 41.1 % Normal 34.0-46.0 [facility] Comment on above: Performed By: #### 1 5301809, 7608421, 11485892, 07272566, 06796640, 1888722, 5927757, 4734304 ####[facility] [address] [place] [address] Hemoglobin (Bld) [Mass/Vol] 14.2 g/dL Normal 12.0-16.0 [facility] Comment on above: Performed By: #### 1 8477600, 5503584, 85334812, 27324615, 93973421, 3690335, 9521708, 7600643 ####[address] [place] [address] MCH (RBC) [Entitic mass] 30.1 pg Normal 27.0-34.0 [facility] Comment on above: Performed By: #### 1 7738409, 9546734, 41195462, 79260957, 85772806, 6208932, 4051190, 9881983 ####[address] [place] [address] MCHC (RBC) [Mass/Vol] 34.6 g/dL Normal 31.4-36.0 [facility] Comment on above: Performed By: #### 1 9618232, 5157724, 99916522, 24124184, 01469144, 9604488, 8309516, 3421931 ####[facility] [address] [place] [address] MCV (RBC) [Entitic vol] 87.1 fL Normal 80.0-100.0 [facility] Comment on above: Performed By: #### 1 0205134, 1720558, 78695395, 98114616, 50210975, 6408296, 6713038, 5455004 ####[address] [place] [address] Platelet mean volume (Bld) [Entitic vol] 8.4 fL Normal 6.4-10.8 [facility] Comment on above: Performed By: #### 1 8744731, 1638869, 62091935, 48062335, 91274665, 0450422, 7193832, 6701887 ####[address] [place] [address] Platelets (Bld) [#/Vol] 220.0 E9/L Normal 150.0-500.0 [facility] Comment on above: Performed By: #### 1 9925749, 0631979, 34976319, 27069297, 83265108, 9135775, 4771861, 3821224 ####[address] [place] [address] RBC (Bld) [#/Vol] 4.7 E12/L Normal 4.3-5.9 [facility] Comment on above: Performed By: #### 1 7734496, 3013831, 87809528, 67000364, 74876434, 1693904, 6509239, 0670902 ####[address] [place] [address] WBC corrected for nucl RBC Auto (Bld) [#/Vol] 7.7 E9/L Normal 4.0-11.0 [facility] Comment on above: Performed By: #### 1 1114093, 2228657, 09163374, 49557038, 81561595, 5757591, 5960089, 4615056 ####[address] [place] [address] CHEMISTRYOrdered By: SYSTEM SYSTEM on 12-04-2022 Albumin [...] Remisol CRP [Mass/Vol] 0.6 mg/dL Normal <=1.9mg/dL [facility] Remis ol GFR/1.73 sq M.predicted among blacks MDRD (S/P/Bld) [Vol rate/Area] mL/min/1.73 m2 Normal >=59mL/min/1. 73 m2 [facility] Chem S GFR/1.73 sq M.predicted among non-blacks MDRD (S/P/Bld) [Vol rate/Area] mL/min/1.73 m2 Normal >=59mL/min/1. 73 m2 [facility] Chem S Globulin (S) [Mass/Vol] 3.0 g/dL Normal 1.4 - 4.0 gm/dL [facility] Remisol Glucose [Mass/Vol] 86 mg/dL Normal 55 - 199 mg/dL [facility] Potassium [Moles/Vol] 3.7 mmol/L Normal 3.5 - 5.3 mmol/L [facility] Protein [Mass/Vol] 7.1 g/dL Normal 6.0 - 7.8 gm/dL [facility] Sodium [Moles/Vol] 137 mmol/L Normal 135 - 145 mmol/L [facility] TSH Qn 1.11 m[IU]/L Normal 0.34 - 5.60 mcIU/mL [facility] Urea nitrogen [Mass/Vol] 10 mg/dL Normal 5 - 21 mg/dL [facility] Remisol Urea nitrogen/Creatinine [Mass ratio] 14 mg/mg Normal 10 - 20 [facility] Remisol CMPon 12-04-2022 Albumin [Mass/Vol] 4.1 g/dL Normal 3.3-5.0 [facility] Comment on above: Performed By: #### 1 3712555, 6688360, 29719451, 94795141, 29119812, 8793960, 1041747, 5156410 ####[facility] [address] [place] [address] Albumin/Globulin (S) [Mass conc ratio] 1.4 Normal 1.1-2.2 [facility] Comment on above: Performed By: #### 1 0090009, 7292217, 03543124, 27291344, 40492396, 0299855, 2221009, 0061269 ####[facility] [address] [place] [address] ALP [Catalytic activity/Vol] 60 Int._Unit/L Normal 21-98 [facility] Comment on above: Performed By: #### 1 3578154, 6812525, 43094861, 64389129, 50492434, 9044786, 3930772, 7781911 ####[facility] [address] [place] [address] ALT No additional P-5'-P [Catalytic activity/Vol] 21 Int._Unit/L Normal 6-46 [facility] Comment on above: Performed By: #### 1 7528727, 3614831, 55328300, 21959007, 38734320, 4042762, 6310903, 1869757 ####[facility] [address] [place] [address] Anion gap [Moles/Vol] 7 mmol/L Normal 6-16 [facility] Comment on above: Performed By: #### 1 3711613, 0145013, 55191560, 34324025, 97405595, 9173621, 8810141, 6673011 ####[address] [place] [address] AST [Catalytic activity/Vol] 17 Int._Unit/L Normal 5-43 [facility] Comment on above: Performed By: #### 1 1171700, 9888716, 37565061, 16179574, 18679469, 9537189, 3904531, 1797272 ####[address] [place] [address] Bilirubin [Mass/Vol] 1.3 mg/dL High 0.0-1.1 [facility] Comment on above: Performed By: #### 1 0017382, 2953774, 72592349, 06508316, 65011526, 3482323, 0923459, 8669236 ####[address] [place] [address] Calcium [Mass/Vol] 8.8 mg/dL Low 8.9-11.1 [facility] Comment on above: Performed By: #### 1 5000096, 2623182, 04443975, 77148369, 81901037, 4046663, 2591586, 7076084 ####[address] [place] [address] Chloride [Moles/Vol] 107 mmol/L Normal 101-111 [facility] Comment on above: Performed By: #### 1 7539927, 5161984, 90464804, 76839201, 98233282, 0501639, 2258106, 5414884 ####[address] [place] [address] CO2 [Moles/Vol] 27 mmol/L Normal 21-31 [facility] Comment on above: Performed By: #### 1 1918419, 1196727, 32351038, 72407294, 33702399, 7312657, 8020971, 3457758 ####[facility] [address] [place] [address] Creatinine [Mass/Vol] 0.7 mg/dL Normal 0.5-1.3 [facility] Comment on above: Performed By: #### 1 2998427, 0685171, 89115719, 05804362, 78175821, 7579604, 4286162, 2629859 ####[facility] [address] [place] [address] Globulin (S) [Mass/Vol] 3.0 g/dL Normal 1.4-4.0 [facility] Comment on above: Performed By: #### 1 6610769, 1267806, 57191610, 24669589, 92732591, 5721046, 3856816, 3701929 ####[facility] [address] [place] [address] Glucose [Mass/Vol] 86 mg/dL Normal 55-199 [facility] Comment on above: Result Comment: If t his glucose result represents a fasting glucose, interpretation should refer to the following reference range: 55-99 mg/dL Performed By: #### 1 6273490, 5191571, 85299623, 01126522, 24992309, 2287985, 3115660, 4935195 ####[facility] [address] [place] [address] Potassium [Moles/Vol] 3.7 mmol/L Normal 3.5-5.3 [facility] Comment on above: Performed By: #### 1 0426014, 8654812, 17044737, 12718573, 01842459, 0956880, 0907437, 4890947 ####[facility] [address] [place] [address] Protein [Mass/Vol] 7.1 g/dL Normal 6.0-7.8 [facility] Comment on above: Performed By: #### 1 3173444, 8264001, 69196735, 35251221, 66579067, 2551134, 0015096, 1185806 ####[facility] [address] [place] [address] Sodium [Moles/Vol] 137 mmol/L Normal 135-145 [facility] Comment on above: Performed By: #### 1 7960530, 6872307, 88051395, 72692952, 34421732, 3061569, 0268391, 9214749 ####[facility] [address] [place] [address] Urea nitrogen [Mass/Vol] 10 mg/dL Normal 5-21 [facility] Comment on above: Performed By: #### 1 5479075, 8504076, 49392254, 64679900, 13705739, 5320125, 2856910, 3562730 ####[facility] [address] [place] [address] Urea nitrogen/Creatinine [Mass ratio] 14 No Units Normal 10-20 [facility] Comment on above: Performed By: #### 1 2389076, 3656293, 36336169, 98497911, 79368716, 6354087, 1525974, 9789970 ####[facility] [address] [place] [address] CRPon 12-04-2022 CRP [Mass/Vol] 0.6 mg/dL Normal <=1.9 [facility] Comment on above: Performed By: #### 1 5781822, 4181954, 26124751, 37696000, 62409423, 0879393, 4179414, 5672730 ####[facility] [address] [place] [address] Consent for Treatmenton 040 Consent for Treatment [id number] #1.00CD:127 Normal [facility] HEMATOLOGYOrdered By: SYSTEM SYSTEM on 12-04-2022 Basophils/100 [...] 87.1 fL Normal 80.0 - 100.0 fL [facility] HemeAutoSS Platelet mean volume (Bld) [Entitic vol] 8.4 fL Normal 6.4 - 10.8 fL [facility] HemeAutoSS Platelets (Bld) [#/Vol] 220.0 E9/L Normal 150.0 - 500.0 E9/L [facility] HemeAutoSS RBC (Bld) [#/Vol] 4.7 E12/L Normal 4.3 - 5.9 E12/L [facility] HemeAutoSS Sed Rate Automated 10 mm/h Normal 0 - 34 mm/hr [facility] HemeAutoSS WBC corrected for nucl RBC Auto (Bld) [#/Vol] 7.7 E9/L Normal 4.0 - 11.0 E9/L [facility] HemeAutoSS Physician Orderon 12-04-2022 Physician Order [id number]# 1.00CD:127 Normal [facility] Physician Order [id number]#1.00CD:127 Normal [facility] Sed Rate Automatedon 023 Sed Rate Automated 10 mm/hr Normal 0-34 [facility] Comment on above: Performed By: #### 1 7013991, 6626688, 07153245, 37311981, 02891976, 6272697, 7638824, 7578932 ####[facility] [address] [place] [address] TSH With T4fr Reflexon 12-04 TSH Qn 1.11 m[IU]/L Normal 0.34-5.60 [facility] Comment on above: Performed By: #### 1 7723852, 9942643, 94755245, 54336042, 64742375, 3866402, 7751282, 5664002 ####[facility] [address] [place] [address] US Abdomen, Limitedon 2022 US Abdomen, Limited [...] MD Transcribed by: LITA Technologist: BREONNA Jason [facility] eGFRon 12-04-2022 GFR/1.73 sq M.predicted among blacks MDRD (S/P/Bld) [Vol rate/Area] mL/min/{1.73_m2} Normal >=59 [facility] Comment on above: Order Comment: Order added by Discern Expert. Result Comment: eGFR is race adjusted. AA=. Performed By: #### 1 8300698, 5064393, 20120291, 71949971, 13037454, 4013689, 0804164, 5293642 ####[address] [place] [address] GFR/1.73 sq M.predicted among non-blacks MDRD (S/P/Bld) [Vol rate/Area] mL/min/{1.73_m2} Normal >=59 [facility] Comment on above: Order Comment: Order added by Discern Expert. Result Comment: Blueberry Grower asfa kidney disease could be indicated at eGFR's of less than 60 mL/min/1.73m2. Kidney failure is indicated at less than 15 mL/min/1.73m2. Performed By: #### 1 4653541, 7152831, 66348374, 44409784, 87553610, 0050233, 3859950, 5590113 ####[facility] [address] [place] [address] Physician Orderon 11-29-2022 Physician Order [id number] #1.00CD:127 Normal [facility] PAP ACOG PANEL 2: 21 to 29on 10-31-2022 . . Normal [facility] Comment on above: Performed By: #### R PRQ #### [facility] [address] [address] [address] Jerrod Bettencourt Age Gdln ACOG Testing - Normal [facility] Comment on above: Performed By: #### R PRQ #### [facility] [address] [place] [address] Dr. Jerrod Bettencourt DIAGNOSIS: Comment Abnormal [facility] Comment on above: Result Comment: EPIT HELIAL CELL ABNORMALITY. LOW GRADE SQUAMOUS INTRAEPITHELIAL LESION (LSIL). Performed By: #### R PRQ #### [facility] [address] [place] [address] Dr. Jerrod Bettencourt Electronically signed by: Comment Normal [facility] Comment on above: Result Comment: Rachna Navarrete MD, Pathologist Performed By: #### R PRQ #### [facility] [address] [place] [address] Dr. Jerrod Bettencourt Methodology: Comment [facility] Comment on above: Result Comment: This liquid based ThinPrep(R) pap test was screened with the use of an image guided system. Performed By: #### R PRQ #### [facility] [address] [place] [address] Dr. Jerrod Bettencourt Note: Comment Normal [facility] Comment on above: Result Comment: The Pap smear is a screening test designed to aid in the detection of premalignant and malignant conditions of the uterine cervix. It is not a diagnostic procedure and should not be used as the sole means of detecting cervical cancer. Both false-positive and false-negative reports do occur. . Performed By: #### R PRQ #### [facility] [address] [place] [address] Dr. Jerrod Bettencourt Pathologist Provided ICD10 Comment Normal [facility] Comment on above: Result Comment: [id number] Performed By: #### R PRQ #### [facility] [address] [place] [address] Dr. Jerrod Bettencourt Performed by: Comment Normal [facility] Comment on above: Result Comment: Janet Abreu, Topographical Drafter (ASCP) Performed By: #### R PRQ #### [facility] [address] [place] [address] Dr. Jerrod Bettencourt Recommendation: Comment Abnormal [facility] Comment on above: Result Comment: Sugg est follow up as clinically appropriate. Performed By: #### R PRQ #### [facility] [address] [place] [address] Dr. Jerrod Bettencourt Reflex Criteria: Comment Normal [facility] Comment on above: Result Comment: The HPV DNA reflex criteria were not met with this specimen result therefore, no HPV testing was performed. . Performed By: #### R PRQ #### [facility] [address] [place] [address] Dr. Jerrod Bettencourt Specimen adequacy: Comment Normal [facility] Comment on above: Result Comment: Sati sfactory for evaluation. Endocervical and/or squamous metaplastic cells (endocervical component) are present. Performed By: #### R PRQ #### [facility] [address] [place] [address] Dr. Jerrod Bettencourt CBC AUTO DIFFon 06-04-2022 BASO # 0.1 103/ul Normal 0.0-0.1 [facility] Comment on above: Performed By: #### R PRQ #### [facility] [address] [place] [address] Dr. Jerrod Bettencourt Basophils/100 WBC (Bld) 0.3 % Normal 0.2-2.0 [facility] Comment on above: Performed By: #### R PRQ #### [facility] [address] [place] [address] Dr. Jerrod Bettencourt EO # 0.1 103/ul Normal 0.0-0.7 [facility] Comment on above: Performed By: #### R PRQ #### [facility] [address] [address] [address] Jerrod Bettencourt Eosinophils/100 WBC (Bld) 0.8 % Critically low 0.9-7.0 [facility] Comment on above: Performed By: #### R PRQ #### [facility] [address] [place] [address] Dr. Jerrod Bettencourt Erythrocyte distribution width (RBC) [Ratio] 13.2 % Normal 11.0-15.0 [facility] Comment on above: Performed By: #### R PRQ #### [facility] [address] [place] [address] Dr. Jerrod Bettencourt Hematocrit (Bld) [Volume fraction] 27.1 % Critically low 36.0-48.0 [facility] Comment on above: Performed By: #### R PRQ #### [facility] [address] [place] [address] Dr. Jerrod Bettencourt Hemoglobin (Bld) [Mass/Vol] 9.5 g/dL Critically low 12.0-16.0 [facility] Comment on above: Performed By: #### R PRQ #### [facility] [address] [place] [address] Dr. Jerrod Bettencourt IG # 0.08 10e3/ul Critically high 0.00-0.03 [facility] Comment on above: Performed By: #### R PRQ #### [facility] [address] [place] [address] Dr. Jerrod Bettencourt IG % 0.6 % Critically high 0.0-0.5 [facility] Comment on above: Performed By: #### R PRQ #### [facility] [address] [address] [address] Jerrod Bettencourt LYMPH # 2.0 103/ul Normal 1.2-3.8 [facility] Comment on above: Performed By: #### R PRQ #### [facility] [address] [place] [address] Dr. Jerrod Bettencourt Lymphocytes/100 WBC (Bld) 14.0 % Critically low 20.5-60.0 [facility] Comment on above: Performed By: #### R PRQ #### [facility] [address] [address] [address] Jerrod Bettencourt MANUAL DIFF REQ NO Normal [facility] [place] [facility] Comment on above: Performed By: #### R PRQ #### [facility] [address] [address] [address] Jerrod Bettencourt MCH (RBC) [Entitic mass] 32.9 pg Normal 26.7-34.0 [facility] Comment on above: Performed By: #### R PRQ #### [facility] [address] [address] [address] Jerrod Bettencourt MCHC (RBC) [Mass/Vol] 35.1 g/dL Normal 29.9-35.2 [facility] Comment on above: Performed By: #### R PRQ #### [facility] [address] [place] [address] Dr. Jerrod Bettencourt MCV (RBC) [Entitic vol] 93.8 fL Normal 81.0-99.0 [facility] Comment on above: Performed By: #### R PRQ #### [facility] [address] [address] [address] Jerrod Bettencourt MONO # 1.1 103/ul Critically high 0.3-0.8 [facility] Comment on above: Performed By: #### R PRQ #### [facility] [address] [address] [address] Jerrod Bettencourt Monocytes/100 WBC (Bld) 7.9 % Normal 1.7-12.0 [facility] Comment on above: Performed By: #### R PRQ #### [facility] [address] [address] [address] Jerrod Bettencourt NEUT # 11.1 103/ul Critically high 1.4-6.5 [facility] Comment on above: Performed By: #### R PRQ #### [facility] [address] [place] [address] Dr. Jerrod Bettencourt Neutrophils/100 WBC (Bld) 76.4 % Critically high 43.0-75.[address] [facility] Comment on above: Performed By: #### R PRQ #### [facility] [address] [address] [address] Jerrod Bettencourt Platelet mean volume (Bld) [Entitic vol] 10.6 fL Normal 9.5-13.5 [facility] Comment on above: Performed By: #### R PRQ #### [facility] [address] [address] [address] Jerrod Bettencourt PLT 147 103/ul Critically low 150-[address] [facility] Comment on above: Performed By: #### R PRQ #### [facility] [address] [address] [address] Jerrod Bettencourt RBC 2.89 106/ul Critically low 4.20-5.40 [facility] Comment on above: Performed By: #### R PRQ #### [facility] [address] [address] [address] Jerrod Bettencourt WBC 14.5 103/ul Critically high 4.0-11.0 [facility] Comment on above: Performed By: #### R PRQ #### [facility] [address] [address] [address] Jerrod Bettencourt CBC AUTO DIFFon 06-02-2022 BASO # 0.1 103/ul Normal 0.0-0.1 [facility] Comment on above: Performed By: #### C BC ####[facility] [address] [address]DrMoises Bettencourt Basophils/100 WBC (Bld) 0.4 % Normal 0.2-2.0 [facility] Comment on above: Performed By: #### C BC ####[facility] [address] [id number]. Jerrod Bettencourt EO # 0.4 103/ul Normal 0.0-0.7 [facility] Comment on above: Performed By: #### C BC ####[facility] [address] [id number]. Jerrod Bettencourt Eosinophils/100 WBC (Bld) 3.5 % Normal 0.9-7.0 [facility] Comment on above: Performed By: #### C BC ####[facility] [address] [address]Dr. Jerrod Bettencourt Erythrocyte distribution width (RBC) [Ratio] 12.9 % Normal 11.0-15.0 [facility] Comment on above: Performed By: #### C BC ####[facility] [address] [place], [place] [address]Dr. Jerrod Bettencourt Hematocrit (Bld) [Volume fraction] 37.0 % Normal 36.0-48.0 [facility] Comment on above: Performed By: #### C BC ####[facility] [address] [place], [place] [address]Dr. Jerrod Bettencourt Hemoglobin (Bld) [Mass/Vol] 13.3 g/dL Normal 12.0-16.0 [facility] Comment on above: Performed By: #### C BC ####[facility] [address] [place], [place] [address]Dr. Jerrod Bettencourt IG # 0.10 10e3/ul Critically high 0.00-0.03 [facility] Comment on above: Performed By: #### C BC ####[facility] [address] [place], [place] [address]Dr. Jerrod Bettencourt IG % 0.8 % Critically high 0.0-0.5 [facility] Comment on above: Performed By: #### C BC ####[facility] [address] [place], [place] [address]Dr. Jerrod Bettencourt LYMPH # 2.6 103/ul Normal 1.2-3.[address] [facility] Comment on above: Performed By: #### C BC ####[facility] [address] [place], [place] [address]Dr. Jerrod Bettencourt Lymphocytes/100 WBC (Bld) 21.6 % Normal 20.5-60.0 [facility] Comment on above: Performed By: #### C BC ####[facility] [address] [place], [place] [address]Dr. Jerrod Bettencourt MANUAL DIFF REQ NO Normal [facility] [place] [facility] Comment on above: Performed By: #### C BC ####[facility] [address] [address]DrMoises Bettencourt MCH (RBC) [Entitic mass] 32.8 pg Normal 26.7-34.[address] [facility] Comment on above: Performed By: #### C BC ####[facility] [address] [address]Dr. Jerrod Bettencourt MCHC (RBC) [Mass/Vol] 35.9 g/dL Critically high 29.9-35.2 [facility] Comment on above: Performed By: #### C BC ####[facility] [address] [address]DrMoises Bettencourt MCV (RBC) [Entitic vol] 91.1 fL Normal 81.0-99.[address] [facility] Comment on above: Performed By: #### C BC ####[facility] [address] [place], [place] [address]DrMoises Bettencourt MONO # 1.0 103/ul Critically high 0.3-0.8 [facility] [place] [facility] Comment on above: Performed By: #### C BC ####[facility] [address] [place], [place] [address]DrMoises Bettencourt Monocytes/100 WBC (Bld) 8.2 % Normal 1.7-12.[address] [facility] Comment on above: Performed By: #### C BC ####[facility] [address] [place], [place] [address]DrMoises Bettencourt NEUT # 8.0 103/ul Critically high 1.4-6.5 [facility] [place] [facility] Comment on above: Performed By: #### C BC ####[facility] [address] [place], [place] [address]DrMoises Bettencourt Neutrophils/100 WBC (Bld) 65.5 % Normal 43.0-75.[address] [facility] Comment on above: Performed By: #### C BC ####[facility] [address] [place], [place] [address]DrMoises Bettencourt Platelet mean volume (Bld) [Entitic vol] 12.1 fL Normal 9.5-13.[address] [facility] Comment on above: Performed By: #### C BC ####[facility] [address] [place], [place] [address]Pv. Jerrod Bettencourt PLT 181 103/ul Normal 150-[address] [facility] Comment on above: Performed By: #### C BC ####[facility] [address] [place], [place] [address]Ee. Jerrod Bettencourt RBC 4.06 106/ul Critically low 4.20-5.40 [facility] [place] [facility] Comment on above: Performed By: #### C BC ####[facility] [address] [place], [place] [address]Ay. Jerrod Bettencourt WBC 12.2 103/ul Critically high 4.0-11.0 [facility] Comment on above: Performed By: #### C BC ####[facility] [address] [place], [place] [address]Fo. Jerrod Bettencourt Covid-19 PCR (CVDTB)on 05-06 SARS-CoV-2 (COVID-19) RNA KATHY+probe Ql (Unsp spec) Not detected Normal NOT DETECTED [facility] Comment on above: Result Comment: When diagnostic [...] for this test is supported by the Surety [employer] Agent of Health and Human Service's declaration that [...] used). Performed By: #### C VDTBH #### [facility] [address] [address] [address] Jerrod Bettencourt DRUG SCREEN RAPID (URINE)on 06-02-2022 AMP Negative Normal NEGATIVE [facility] Comment on above: Performed By: #### D RUGRPD ####[facility] [address] [address]Dr. Jerrod Bettencourt BAR Negative Normal NEGATIVE [facility] Comment on above: Performed By: #### D RUGRPD ####[facility] [address] [address]Dr. Jerrod Bettencourt BUP Negative Normal NEGATIVE [facility] Comment on above: Performed By: #### D RUGRPD ####[facility] [address] [address]Dr. Jerrod Bettencourt BZO Negative Normal NEGATIVE [facility] Comment on above: Performed By: #### D RUGRPD ####[facility] [address] [address]Dr. Jerrod Bettencourt VERNA Negative Normal NEGATIVE [facility] Comment on above: Performed By: #### D RUGRPD ####[facility] [address] [address]Dr. Jerrod Bettencourt CUT-OFFS SEE BELOW Normal [facility] Comment on above: Result Comment: AMP (Amphetamine): 500ng/mL, BAR (Barbituates): 200 ng/mL, BZO (Benzodiazepines): 150 ng/mL, BUP (Buprenorphine): 10 ng/mL, VERNA (Cocaine): 150 ng/mL, mAMP (Methamphetamine): 500 ng/mL, MTD (Methadone): 200 ng/mL, OPI (Opiates): 100 ng/mL, OXY (Oxycodone): 100 ng/mL, PCP (Phencyclidine): 25 ng/mL, PPX (Propoxyphene): 300 ng/mL, THC (Cannabinoids): 50 ng/mL, TCA (Trycyclic Antidepressants): 300 ng/mL Performed By: #### D RUGRPD ####[facility] [address] [address]Dr. Jerrod Bettencourt DRUG CUT HEADER DRUG CLASS TEST SYSTEM CUT-OFF CONCENTRATIONS ARE FOLLOWS: Normal [facility] Comment on above: Performed By: #### D RUGRPD ####[facility] [address] [id number]. Yioseas Bettencourt mAMP Negative Normal NEGATIVE [facility] Comment on above: Performed By: #### D RUGRPD ####[facility] [address] [place], [place] [address]Ib. Yilan Bettencourt MTD Negative Normal NEGATIVE [facility] Comment on above: Performed By: #### D RUGRPD ####[facility] [address] [id number]. Yilan Bettencourt OPI Negative Normal NEGATIVE [facility] Comment on above: Performed By: #### D RUGRPD ####[facility] [address] [address]Dr. Yilan Bettencourt OXY Negative Normal NEGATIVE [facility] Comment on above: Performed By: #### D RUGRPD ####[facility] [address] [address]Dr. Yilan Bettencourt PCP Negative Normal NEGATIVE [facility] Comment on above: Performed By: #### D RUGRPD ####[facility] [address] [address]Dr. Yioseas Bettencourt PPX Negative Normal NEGATIVE [facility] Comment on above: Performed By: #### D RUGRPD ####[facility] [address] [id number]. Yilan Bettencourt TCA Negative Normal NEGATIVE [facility] Comment on above: Performed By: #### D RUGRPD ####[facility] [address] [id number]. Yilan Bettencourt THC Negative Normal NEGATIVE [facility] Comment on above: Performed By: #### D RUGRPD ####[facility] [address] [address]Dr. Yilan Bettencourt TYPE AND SCREENon 06-02-2022 TYPE AND SCREEN Negative Normal [facility] [place] [facility] Comment on above: Performed By: #### T NS #### [facility] [address] [address] [address] Jerrod Bettencourt PREG BIOPHY W NON STRESSo n 06-01-2022 [...] by: MELITA MARTINEZ Date: 2022-06-01 16:30 Normal [facility] US PREG BIOPHY W NON STRESSo [...] by: MELITA MARTINEZ Date: 2022-05-24 17:37 Normal [facility] PREG GROWTHon 05-24-2022 US PREG GROWTH EXAMINATION: [...] MELITA MARTINEZ Date: 2022-05-24 17:[address] [facility] US PREG BIOPHY W NON STRESSo n [...] biophysical profile score: 8.0 Electronically authenticated by: LEIAS YOUNG Date: 2022-05-17 16:[address] [facility] GROUP B STREP CULTUREon 05-04 S. agalactiae Ag Ql (Unsp spec) Culture Observations: NEGATIVE FOR GROUP B STREPTOCOCCUS. Normal [facility] Comment on above: Performed By: #### G BSCX ####[facility] [address] [place], [place] [address]YzMoises Bettencourt US PREG BIOPHY W NON STRESSo [...] by: MELITA MARTINEZ Date: 2022-05-11 16:[address] [facility] US PREG GROWTHon 05-09-2022 US PREG GROWTH [...] by: ELIAS YOUNG Date: 2022-05-09 19:19 Normal [facility] US PREG BIOPHY W NON STRESSo [...] by: ELIAS YOUNG Date: 2022-05-03 09:31 Normal [facility] US PREG BIOPHY W NON STRESSo [...] by: MELITA MARTINEZ Date: 2022-04-27 16:18 Normal [facility] US PREG BIOPHY W NON STRESSo [...] by: MELITA MARTINEZ Date: 2022-04-20 19:03 Normal [facility] US PREG GROWTHon 04-11-2022 US PREG [...] by: ELIAS YOUNG Date: 2022-04-11 18:[address] [facility] GLUCOSE - 1HRon 03-21-2022 Glucose [Mass/Vol] 137 mg/dL Critically high 74-106 T [facility] Comment on above: Performed By: #### G LU1HR ####[facility] [address] [address]Dr. Jerrod Bettencourt HEMOGRAM AND PLATELon 2021 Hematocrit (Bld) [Volume fraction] 36.1 % Normal 36.0-48.0 [facility] Comment on above: Performed By: #### H H ####[facility] [address] [address]Dr. Jerrod Bettencourt Hemoglobin (Bld) [Mass/Vol] 12.4 g/dL Normal 12.0-16.[address] [facility] Comment on above: Performed By: #### H H ####[facility] [address] [address]Dr. Jerrod Bettencourt MCH (RBC) [Entitic mass] 32.6 pg Normal 26.7-34.0 [facility] Comment on above: Performed By: #### H H ####[facility] [address] [address]Dr. Jerrod Bettencourt MCHC (RBC) [Mass/Vol] 34.3 g/dL Normal 29.9-35.[address] [facility] Comment on above: Performed By: #### H H ####[facility] [address] [address]Dr. Jerrod Bettencourt MCV (RBC) [Entitic vol] 95.0 fL Normal 81.0-99.[address] [facility] Comment on above: Performed By: #### H H ####[facility] [address] [address]Dr. Jerrod Bettencourt PLT 203 103/ul Normal 150-[address] [facility] Comment on above: Performed By: #### H H ####[facility] [address] [address]Dr. Jerrod Bettencourt RBC 3.80 106/ul Critically low 4.20-5.40 [facility] [place] [facility] Comment on above: Performed By: #### H H ####[facility] [address] [address]Dr. Jerrod Bettencourt WBC 10.9 103/ul Normal 4.0-11.[address] [facility] Comment on above: Performed By: #### H H ####[facility] [address] [address]DrMioses Bettencourt TYPE AND SCREENon 03-21-2022 TYPE AND SCREEN Negative Normal [facility] [place] [facility] Comment on above: Performed By: #### T NS ####[facility] [address] [address]Dr. Jerrod Bettencourt CULTURE URINEon 02-20-2022 CULTURE URINE Culture Observations: LIGHT GROWTH OF MIXED GENITAL PALMER. NO POTENTIAL PATHOGENS SEEN. Normal [facility] Comment on above: Performed By: #### U RCX #### [facility] [address] [place] [address] Dr. Jerrod Bettencourt UA RANDOM W/MICROSCOPICon BACTERIA MODERATE Abnormal NONE SEEN [facility] Comment on above: Performed By: #### R PRQ #### [facility] [address] [place] [address] Dr. Jerrod Bettencourt Bilirubin Ql (U) Negative Normal NEGATIVE [facility] Comment on above: Performed By: #### R PRQ #### [facility] [address] [place] [address] Dr. Jerrod Bettencourt CAST SEEN Abnormal NONE SEEN [facility] Comment on above: Performed By: #### R PRQ #### [facility] [address] [place] [address] Dr. Jerrod Bettencourt Clarity (U) CLEAR Normal CLEAR [facility] Comment on above: Performed By: #### R PRQ #### [facility] [address] [address] [address] Jerrod Bettencourt Color (U) LT. YELLOW Normal YELLOW [facility] Comment on above: Performed By: #### R PRQ #### [facility] [address] [place] [address] Dr. Jerrod Bettencourt Crystals LM Nom (Urine sed) NONE SEEN Normal NONE SEEN [facility] Comment on above: Performed By: #### R PRQ #### [facility] [address] [place] [address] Dr. Jerrod Bettencourt Epithelial cells LM Ql (Urine sed) MANY Abnormal NONE SEEN /RARE [facility] Comment on above: Performed By: #### R PRQ #### [facility] [address] [address] [address] Jerrod Bettencourt Glucose Ql (U) Negative Normal NEGATIVE [facility] Comment on above: Performed By: #### R PRQ #### [facility] [address] [place] [address] Dr. Jerrod Bettencourt Hemoglobin Ql (U) Negative Normal NEGATIVE [facility] Comment on above: Performed By: #### R PRQ #### [facility] [address] [place] [address] Dr. Jerrod Bettencourt HYALINE CAST FEW Normal [facility] Comment on above: Performed By: #### R PRQ #### [facility] [address] [place] [address] Dr. Jerrod Bettencourt Ketones Ql (U) Negative Normal NEGATIVE [facility] Comment on above: Performed By: #### R PRQ #### [facility] [address] [place] [address] Dr. Jerrod Bettencourt LEUKOCYTES LARGE Abnormal NEGATIVE [facility] Comment on above: Performed By: #### R PRQ #### [facility] [address] [place] [address] Dr. Jerrod Bettencourt MUCOUS TRACE Abnormal NONE SEEN [facility] Comment on above: Performed By: #### R PRQ #### [facility] [address] [address] [address] Jerrod Bettencourt Nitrite Ql (U) Negative Normal NEGATIVE [facility] Comment on above: Performed By: #### R PRQ #### [facility] [address] [place] [address] Dr. Jerrod Bettencourt pH (U) 7.5 [pH] Normal 5-[address] [facility] Comment on above: Performed By: #### R PRQ #### [facility] [address] [address] [address] Jerrod Bettencourt RBC 0-2 Normal 0-[address] [facility] Comment on above: Performed By: #### R PRQ #### [facility] [address] [place] [address] Dr. Jerrod Bettencourt SPEC GRAVITY 1.020 Normal 1.005-<=1.025 [facility] [place] [facility] Comment on above: Performed By: #### R PRQ #### [facility] [address] [place] [address] Dr. Jerrod Bettencourt UA PROTEIN Negative Normal NEGATIVE/ TRACE [facility] Comment on above: Performed By: #### R PRQ #### [facility] [address] [place] [address] Dr. Jerrod Bettencourt Urobilinogen Qn (U) 0.2 {Tuan'U}/dL Normal 0.2 - 1. 0 [facility] Comment on above: Performed By: #### R PRQ #### [facility] [address] [place] [address] Dr. Jerrod Bettencourt WBC 5-10 Abnormal NONE SEEN [facility] Comment on above: Performed By: #### R PRQ #### [facility] [address] [place] [address] Dr. Jerrod Bettencourt US PREG ANATOMY SINGLEon [...] MELITA MARTINEZ Date: 2022-01-23 09:[address] [facility] AFP MATERNAL FOR SPINA BIFID Aon 01-19-2022 AFP MoM 0.[address] [facility] Comment on above: Performed By: #### A FPMAT ####[facility] [address] [place] [id number]. Jerrod [facility] AFP Value 32.3 ng/mL Normal [facility] Comment on above: Performed By: #### A FPMAT ####[facility] [address] [address]Dr. Jerrod Bettencourt AFP, Serum for Spina Bifida Report Normal [facility] Comment on above: Performed By: #### A FPMAT ####[facility] [address] [address]Dr. Jerrod Bettencourt Comment Comment Normal [facility] Comment on above: Result Comment: Fernandez Silverio, Ph.D., [facility] Director . References: Available Upon Request. . Multiples Of Median Cutoffs For AFP Elevations Weeks 2.5 Black 2.8 IDD 2.0 Twins 4.5 Abbreviation Definitions IDD - Insulin Dep Diabetes OSBR - Open Spina Bifida Risk . For further inquiries contact [employer] at [phone]. Performed By: #### A FPMAT ####[facility] [address] [place] [id number]. Jerrod Bettencourt Gest Age Collection Date 19.[address] [facility] Comment on above: Performed By: #### A FPMAT ####[facility] [address] [place] [id number]. Jerrod Bettencourt Gestat, Age Based on LMP Normal [facility] Comment on above: Result Comment: Reca lculations are not recommended when gestational dating by LMP and ultrasound are within 10 days. Performed By: #### A FPMAT ####[facility] [address] [place] [id number]. Jerrod Bettencourt Insulin Dep Diabetes No Normal [facility] Comment on above: Performed By: #### A FPMAT ####[facility] [address] [place] [id number]. Jerrod Bettencourt Interpretation Comment Normal [facility] Comment on above: Result Comment: Inte rpretation: [...] Customer Services to discuss available options. The [employer] recommends amniocentesis be offered to women age 35 and older. Performed By: #### A FPMAT ####[facility] [address] [place] [id number]. Jerrod Bettencourt [age] Normal [facility] Comment on above: Performed By: #### A FPMAT ####[facility] [address] [place] [id number]. Jerrod Bettencourt Multiple Gestation No Normal [facility] Comment on above: Performed By: #### A FPMAT ####[facility] [address] [place] [id number]. Jerrod Bettencourt OSBR Risk 1 [place] [id number] [facility] Comment on above: Performed By: #### A FPMAT ####[facility] [address] [place] [id number]. Jerrod Bettencourt PDF . Normal [facility] Comment on above: Performed By: #### A FPMAT ####[facility] [address] [id number]. Jerrod Bettencourt Race Normal [facility] Comment on above: Performed By: #### A FPMAT ####[facility] [address] [id number] Bettencourt Test Results: Negative Normal [facility] Comment on above: Performed By: #### A FPMAT ####[facility] [address] [id number]. Jerrod Bettencourt CHLAMYDIA/GONOCOCCUS KATHY (SW AB/URINE/PAPon 12-26-2021 Chlamydia trachomatis, KATHY Negative Normal Negative [facility] Comment on above: Performed By: #### R PRQ #### [facility] [address] [place] [address] Dr. Jerrod Bettencourt Neisseria gonorrhoeae, KATHY Negative Normal Negative [facility] Comment on above: Performed By: #### R PRQ #### [facility] [address] [place] [address] Dr. Jerrod Bettencourt VAGINITIS/VAGINOSIS DNA PROB Salvador 12-25-2021 Rosalinda species Negative Normal Negative [facility] [place] [facility] Comment on above: Performed By: #### V AGINT ####[facility] [address] [place], [place] [address]Dr. Jerrod Bettencourt Gardnerella vaginalis Positive Abnormal Negative [facility] Comment on above: Performed By: #### V AGINT ####[facility] [address] [address]DrMoises Bettencourt Trichomonas vaginalis Negative Normal Negative The [facility] Comment on above: Performed By: #### V AGINT ####[facility] [address] [id number]. Jerrod Bettencourt CULTURE URINEon 11-27-2021 CULTURE URINE [...] F Oxacillin <=0.25 S F Normal [facility] Comment on above: Performed By: #### U RCX #### [facility] [address] [place] [address] Dr. Jerrod Bettencourt HEP B SURFACE ANTIGEN SCREEN on 11-27-2021 HBsAg Screen Negative Normal Negative [facility] Comment on above: Performed By: #### R PRQ #### [facility] [address] [place] [address] Dr. Jerrod Bettencourt HEPATITIS C VIRUS AB W/ REFL EX QUANTon 11-27-2021 HCV AB <0.1 Normal 0.0-0.9 [facility] Comment on above: Performed By: #### R PRQ #### [facility] [address] [place] [address] Dr. Jerrod Bettencourt Interpretation: Comment Normal [facility] [place] [facility] Comment on above: Result Comment: Nega tive Not infected with HCV, unless recent infection is suspected or other evidence exists to indicate HCV infection. Performed By: #### R PRQ #### [facility] [address] [place] [address] Dr. Jerrod Bettencourt HIV 1 AND 2 WITH REFLEXon HIV Screen 4th Generation wRfx Non-Reactive Normal Non Reactive [facility] Comment on above: Result Comment: HIV Negative HIV-1/HIV-2 antibodies and HIV-1 p24 antigen were NOT detected. There is no laboratory evidence of HIV infection. Performed By: #### R PRQ #### [facility] [address] [place] [address] Dr. Jerrod Bettencourt RPR QUANTon 11-27-2021 Rapid Plasma Reagin, Quant Non-Reactive Normal NonRea<1:[address] [facility] Comment on above: Performed By: #### R PRQ #### [facility] [address] [place] [address] Dr. Jerrod Bettencourt RUBELLA AB IGGon 11-27-2021 Rubella Antibodies, IgG 1.52 index Normal Immune >0.[address] [facility] Comment on above: Result Comment: Non- immune <0.90 Equivocal 0.90 - 0.99 Immune >0.99 Performed By: #### R PRQ #### [facility] [address] [place] [address] Dr. Jerrod Bettencourt CBC AUTO DIFFon 11-25-2021 BASO # 0.0 103/ul Normal 0.0-0.1 [facility] Comment on above: Performed By: #### R PRQ #### [facility] [address] [place] [address] Dr. Jerrod Bettencourt Basophils/100 WBC (Bld) 0.3 % Normal 0.2-2.0 [facility] Comment on above: Performed By: #### R PRQ #### [facility] [address] [place] [address] Dr. Jerrod Bettencourt EO # 0.3 103/ul Normal 0.0-0.7 [facility] Comment on above: Performed By: #### R PRQ #### [facility] [address] [place] [address] Dr. Jerrod Bettencourt Eosinophils/100 WBC (Bld) 2.2 % Normal 0.9-7.0 [facility] Comment on above: Performed By: #### R PRQ #### [facility] [address] [place] [address] Dr. Jerrod Bettencourt Erythrocyte distribution width (RBC) [Ratio] 13.4 % Normal 11.0-15.0 [facility] Comment on above: Performed By: #### R PRQ #### [facility] [address] [place] [address] Dr. Jerrod Bettencourt Hematocrit (Bld) [Volume fraction] 39.5 % Normal 36.0-48.0 [facility] Comment on above: Performed By: #### R PRQ #### [facility] [address] [place] [address] Dr. Jerrod Bettencourt Hemoglobin (Bld) [Mass/Vol] 14.2 g/dL Normal 12.0-16.0 [facility] Comment on above: Performed By: #### R PRQ #### [facility] [address] [place] [address] Dr. Jerrod Bettencourt IG # 0.05 10e3/ul Critically high 0.00-0.03 [facility] Comment on above: Performed By: #### R PRQ #### [facility] [address] [place] [address] Dr. Jerrod Bettencourt IG % 0.4 % Normal 0.0-0.5 [facility] Comment on above: Performed By: #### R PRQ #### [facility] [address] [address] [address] Jerrod Bettencourt LYMPH # 2.8 103/ul Normal 1.2-3.8 [facility] Comment on above: Performed By: #### R PRQ #### [facility] [address] [place] [address] Dr. Jerrod Bettencourt Lymphocytes/100 WBC (Bld) 22.8 % Normal 20.5-60.0 [facility] Comment on above: Performed By: #### R PRQ #### [facility] [address] [place] [address] Dr. Jerrod Bettencourt MANUAL DIFF REQ NO Normal [facility] Comment on above: Performed By: #### R PRQ #### [facility] [address] [place] [address] Dr. Jerrod Bettencourt MCH (RBC) [Entitic mass] 31.6 pg Normal 26.7-34.0 [facility] Comment on above: Performed By: #### R PRQ #### [facility] [address] [place] [address] Dr. Jerrod Bettencourt MCHC (RBC) [Mass/Vol] 35.9 g/dL Critically high 29.9-35.2 [facility] Comment on above: Performed By: #### R PRQ #### [facility] [address] [place] [address] Dr. Jerrod Bettencourt MCV (RBC) [Entitic vol] 87.8 fL Normal 81.0-99.0 [facility] Comment on above: Performed By: #### R PRQ #### [facility] [address] [place] [address] Dr. Jerrod Bettencourt MONO # 0.8 103/ul Normal 0.3-0.8 [facility] Comment on above: Performed By: #### R PRQ #### [facility] [address] [place] [address] Dr. Jerrod Bettencourt Monocytes/100 WBC (Bld) 6.8 % Normal 1.7-12.0 [facility] Comment on above: Performed By: #### R PRQ #### [facility] [address] [place] [address] Dr. Jerrod Bettencourt NEUT # 8.2 103/ul Critically high 1.4-6.5 [facility] Comment on above: Performed By: #### R PRQ #### [facility] [address] [place] [address] Dr. Jerrod Bettencourt Neutrophils/100 WBC (Bld) 67.5 % Normal 43.0-75.0 [facility] Comment on above: Performed By: #### R PRQ #### [facility] [address] [place] [address] Dr. Jerrod Bettencourt Platelet mean volume (Bld) [Entitic vol] 9.5 fL Normal 9.5-13.[address] [facility] Comment on above: Performed By: #### R PRQ #### [facility] [address] [place] [address] Dr. Jerrod Bettencourt PLT 235 103/ul Normal 150-[address] [facility] Comment on above: Performed By: #### R PRQ #### [facility] [address] [place] [address] Dr. Jerrod Bettencourt RBC 4.50 106/ul Normal 4.20-5.[address] [facility] Comment on above: Performed By: #### R PRQ #### [facility] [address] [place] [address] Dr. Jerrod Bettencourt WBC 12.2 103/ul Critically high 4.0-11.0 [facility] Comment on above: Performed By: #### R PRQ #### [facility] [address] [place] [address] Dr. Jerrod Bettencourt GLYCOHEMOGLOBIN A1Con 2021 ADA RECOMMENDATION ADA THERAPEUTIC TARGET 6.0 - 7.0 ACTION SUGGESTED > 7.0 Normal [facility] Comment on above: Performed By: #### R PRQ #### [facility] [address] [address] [address] Jerrod Bettencourt Glucose [Mass/Vol] 94 mg/dL Normal [facility] [place] Comment on above: Performed By: #### R PRQ #### [facility] [address] [address] [address] Jerrod Bettencourt HbA1c (Bld) [Mass fraction] 4.9 % Normal <=6.0 [facility] Comment on above: Performed By: #### R PRQ #### [facility] [address] [address] [address] Jerrod Bettencourt TYPE AND SCREENon 11-25-2021 TYPE AND SCREEN Negative Normal [facility] [place] [facility] Comment on above: Performed By: #### T NS #### [facility] [address] [address] [address] Jerrod Bettencourt UA RANDOM W/MICROSCOPICon BACTERIA LARGE Abnormal NONE SEEN [facility] Comment on above: Performed By: #### U AMIC ####[facility] [address] [place], [place] [address]DrMoises Bettencourt Bilirubin Ql (U) Negative Normal NEGATIVE The [facility] Comment on above: Performed By: #### U AMIC ####[facility] [address] [address] [address]DrMoises Bettencourt CAST NONE SEEN Normal NONE SEEN [facility] Comment on above: Performed By: #### U AMIC ####[facility] [address] [address]DrMoises Bettencourt Clarity (U) SL CLOUDY Abnormal CLEAR [facility] Comment on above: Performed By: #### U AMIC ####[facility] [address] [address]DrMoises Bettencourt Color (U) LT. YELLOW Normal YELLOW [facility] Comment on above: Performed By: #### U AMIC ####[facility] [address] [address]Dr. Jerrod Bettencourt Crystals LM Nom (Urine sed) NONE SEEN Normal NONE SEEN [facility] Comment on above: Performed By: #### U AMIC ####[facility] [address] [address]Dr. Jerrod Bettencourt Epithelial cells LM Ql (Urine sed) MODERATE Abnormal NONE SEEN /RARE [facility] Comment on above: Performed By: #### U AMIC ####[facility] [address] [address]Dr. Jerrod Bettencourt Glucose Ql (U) Negative Normal NEGATIVE [facility] Comment on above: Performed By: #### U AMIC ####[facility] [address] [place], [place] [address]Dr. Jerrod Bettencourt Hemoglobin Ql (U) TRACE-INTACT Abnormal NEGATIVE [facility] Comment on above: Performed By: #### U AMIC ####[facility] [address] [place], [place] [address]Dr. Jerrod Bettencourt Ketones Ql (U) Negative Normal NEGATIVE [facility] Comment on above: Performed By: #### U AMIC ####[facility] [address] [place], [place] [address]Dr. Jerrod Bettencourt LEUKOCYTES LARGE Abnormal NEGATIVE [facility] Comment on above: Performed By: #### U AMIC ####[facility] [address] [place] [address]Dr. Jerrod Bettencourt MUCOUS NONE SEEN Normal NONE SEEN [facility] Comment on above: Performed By: #### U AMIC ####[facility] [address] [place], [place] [address]Dr. Jerrod Bettencourt Nitrite Ql (U) Positive Abnormal NEGATIVE [facility] Comment on above: Performed By: #### U AMIC ####[facility] [address] [place], [place] [address]Dr. Jerrod Bettencourt pH (U) 6.5 [pH] Normal 5-[address] [facility] Comment on above: Performed By: #### U AMIC ####[facility] [address] [place] [id number]. Jerrod Bettencourt RBC 2-5 Abnormal 0-[address] [facility] Comment on above: Performed By: #### U AMIC ####[facility] [address] [place] [id number]. Jerrod Bettencourt SPEC GRAVITY 1.020 Normal 1.005-<=1.025 [facility] [place] [facility] Comment on above: Performed By: #### U AMIC ####[facility] [address] [place] [address]Dr. Jerrod Bettencourt UA PROTEIN Negative Normal NEGATIVE/ TRACE [facility] Comment on above: Performed By: #### U AMIC ####[facility] [address] [place] [address]Dr. Jerrod Bettencourt Urobilinogen Qn (U) 0.2 {Tuan'U}/dL Normal 0.2 - 1. [address] [facility] Comment on above: Performed By: #### U AMIC ####[facility] [address] [place] [address]Dr. Jerrod Bettencourt WBC 75-100 Abnormal NONE SEEN [facility] Comment on above: Performed By: #### U AMIC ####[facility] [address] [place] [address]Dr. Jerrod Bettencourt US PREG TVon 11-02-2021 US [...] MELITA MARTINEZ Date: 2021-11-02 16:[address] [facility] Vital Signs Date Time Vital Sign Value Performing Clinician Facility 10-18-2023 10:29-0500 Body height 167.6 cm Verona Decker MD Work Phone: [facility] [employer] [facility] 10-18-2023 10:29-0500 Body mass index (BMI) [Ratio] 29.05 kg/m2 Verona Decker MD Work Phone: [facility] [employer] [facility] 10-18-2023 10:29-0500 Body weight 81.65 kg Verona Decker MD Work Phone: [facility] [employer] [facility] 10-18-2023 10:29-0500 Diastolic blood pressure 66 mm[Hg] Verona Decker MD Work Phone: [facility] [employer] 10-18-2023 10:29-0500 Heart rate 84 /min Verona Decker MD Work Phone: [facility] [employer] [facility] 10-18-2023 10:29-0500 Systolic blood pressure 113 mm[Hg] Verona Decker MD Work Phone: [facility] 01-11-2023 15:36-0400 Body temperature 97.88 [degF] Yash Medina [facility] 01-11-2023 15:36-0400 Diastolic blood pressure 81 mm[Hg] Yash Medina [facility] 01-11-2023 15:36-0400 Heart rate 79 /min Yash Medina [facility] 01-11-2023 15:36-0400 Respiratory rate 18 /min Yash Medina [facility] 01-11-2023 15:36-0400 SaO2% (BldA) [Mass fraction] 99 % Yash Medina [facility] 01-11-2023 15:36-0400 Systolic blood pressure 117 mm[Hg] Yash Medina [facility] 12-07-2022 23:00-0400 Diastolic blood pressure 75 mm[Hg] Yash Medina [facility] 12-07-2022 23:00-0400 Heart rate 74 /min Yash Adam [facility] 12-07-2022 23:00-0400 Mean blood pressure 90 mm[Hg] Yash Adam [facility] 12-07-2022 23:00-0400 Respiratory rate 16 /min Ysah Adam [facility] 12-07-2022 23:00-0400 SaO2% (BldA) [Mass fraction] 98 % Yash Adam [facility] 12-07-2022 23:00-0400 Systolic blood pressure 120 mm[Hg] Yash Adam [facility] 12-07-2022 22:00-0400 Diastolic blood pressure 74 mm[Hg] Yash Adam [facility] 12-07-2022 22:00-0400 Heart rate 92 /min Yash Adam [facility] 12-07-2022 22:00-0400 Mean blood pressure 88 mm[Hg] Yash Adam [facility] 12-07-2022 22:00-0400 Systolic blood pressure 115 mm[Hg] Yash Adam [facility] 12-07-2022 21:30-0400 Body temperature 97.7 [degF] Yash Adam [facility] 12-07-2022 21:30-0400 Diastolic blood pressure 87 mm[Hg] Yash Adam [facility] 12-07-2022 21:30-0400 Heart rate 89 /min Yash Adam [facility] 12-07-2022 21:30-0400 Respiratory rate 20 /min Yash Adam [facility] 12-07-2022 21:30-0400 SaO2% (BldA) [Mass fraction] 97 % Yash Medina [facility] 12-07-2022 21:30-0400 Systolic blood pressure 139 mm[Hg] Yash Medina [facility] 01-19-2022 03:11-0400 Body weight 74.3904 kg NONE LISTED REQUEST [facility] Comment on above: Performed By: #### AFPMAT ####[facility]ital [address] [place], [place] [address]JaDr. Jerrod Bettencourt Encounters Encounter Date Encounter Type Care Provider Facility Start: 02-12-2024 End: 02-12-2024 ambulatory JOHN PRASHANTH Not Available Start: 02-06-2024 End: 02-06-2024 ambulatory JOHN PRASHANTH Not Available Start: 01-30-2024 End: 01-30-2024 ambulatory JOHN PRASHANTH Not Available Start: 01-16-2024 End: 01-16-2024 ambulatory JOHN PRASHANTH Not Available Start: 01-11-2024 End: 01-12-2024 ambulatory JOHN R [facility] Start: 01-03-2024 End: 01-03-2024 ambulatory JOHN PRASHANTH Not Available Start: 12-20-2023 End: 12-20-2023 ambulatory JOHN PRASHANTH Not Available Start: 11-22-2023 End: 11-22-2023 ambulatory SLOANE BRITT Not Available Start: 11-16-2023 End: 11-17-2023 ambulatory JOHN R [facility] Start: 10-25-2023 End: 10-25-2023 ambulatory JOHN PRASHANTH Not Available Start: 10-19-2023 Orders Only Edward Ogden CMA [facility]- [facility] at [facility] Comment on above: Abnormal thyroid fun ction test (Primary Dx); Pyelectasis of fetus on ultrasound Start: 10-18-2023 End: 10-19-2023 ambulatory VERONA DECKER [facility] Start: 10-18-2023 End: 10-18-2023 ambulatory JOHN Evelyn PRASHANTH [facility] Start: 10-18-2023 End: 10-18-2023 Office consultation new/estab patient 60 min Verona Decker MD Work Phone: [facility] at [facility] Comment on above: 20 weeks gestation o f (Primary Dx); Abnormal thyroid function test; Bipolar affective disorder, remission status unspecified ([facility]); Depression affecting ; Pyelectasis of fetus on ultrasound Start: 09-26-2023 End: 09-26-2023 ambulatory SLOANE BRITT Not Available Start: 09-24-2023 Chart abstracting Verona Decker MD Work Phone: [facility] Start: 08-28-2023 End: 08-28-2023 ambulatory JOHN PRASHANTH Not Available Start: 08-09-2023 End: 08-09-2023 ambulatory JOHN PRASHANTH Not Available Start: 08-03-2023 End: 08-03-2023 ambulatory JOHN PRASHANTH Not Available Start: 03-19-2023 End: 03-19-2023 ambulatory [facility] Facility:[facility] Start: 03-05-2023 End: 03-05-2023 ambulatory [facility] Facility:[facility] Start: 03-05-2023 End: 03-05-2023 ambulatory MD Madhavi Bustamante [facility] Work Phone: Start: 03-05-2023 End: 03-05-2023 Patient encounter procedure MD Madhavi Bustamante [facility] Work Phone: Start: 01-11-2023 End: 01-11-2023 Emergency department patient visit Yash Medina Facility:[facility] Start: 01-11-2023 End: 01-11-2023 Emergency department patient visit Yash Medina [facility] Start: 12-07-2022 End: 12-08-2022 Emergency department patient visit Yash Medina Facility:[facility] Start: 12-07-2022 End: 12-07-2022 Emergency department patient visit Ysah Medina [facility] Start: 12-04-2022 End: 12-05-2022 ambulatory Madhavi Rasmussenes Facility:[facility] Start: 12-04-2022 End: 12-04-2022 Patient encounter procedure Madhavi Dos Santosgles [facility] Start: 10-24-2022 End: 10-24-[address] JHON WILSON . Facility: Start: 06-14-[address] NONE LISTED REQUEST Facility: Start: 06-07-2022 End: 06-07-[address] NONE LISTED REQUEST Facility: Start: 06-02-2022 End: 06-05-2022 Evaluation and management of inpatient DR JOHN WILSON . Facility: Start: 05-31-2022 End: 05-31-[address] JOHN WILSON . Facility:[facility] Start: 05-26-2022 Evaluation and manag ement of inpatient DR JOHN WILSON . Facility: Start: 05-24-2022 End: 05-24-[address] JARED MENDOZA . Facility:[facility] Start: 05-24-2022 End: 05-25-[address] JOHN WILSON . Facility:[facility] Start: 05-17-2022 End: 05-17-[address] JARED MENDOZA . Facility:[facility] Start: 05-16-2022 End: 05-16-[address] JOHN WILSON . Facility:[facility] Start: 05-10-2022 End: 05-10-[address] JARED MENDOZA . Facility: Start: 05-09-2022 End: 05-10-[address] NONE LISTED REQUEST Facility: Start: 05-02-2022 End: 05-02-[address] JOHN [...] . Facility:[facility] Start: 01-16-2022 End: 01-17-2022 ambulatory NONE LISTED REQUEST Facility:[facility] Start: 12-22-2021 End: [...] on ultrasound Expected: 10/19/2024 (Approximate), Expires: 10/19/2024 [facility] Work Phone: Comment on above: Expected: 10/19/2024 (Approximate), Expires: 10/19/2024 Start: 10-18-2024 Adult BMI Screening Adult BMI Screen ing [facility] Start: 10-18-2024 Tobacco Screening Tobacco Screening [facility] Start: 11-16-2023 End: 11-16-2023 Patient encounter procedure 11/16/2023 11:00 AM EDT Appointment [facility] [address] [place] [phone] [facility] Start: 10-18-2023 End: 10-18-2023 Patient encounter procedure 10/18/2023 10:30 AM EST Office Visit [facility] [address] [facility] [address] [place] [phone] Verona Decker MD [address] [place] [address] [facility] Start: 10-18-2023 End: 10-18-2023 Patient encounter procedure 10/18/2023 9:15 AM EST Appointment [facility] [address] [place] [phone] [facility] Start: 05-04-2023 Influenza vaccination Influenza Vacc ine [facility] Start: 2021 Screening for malign ant neoplasm of cervix Pap Smear [facility] Start: 2018 Adult BMI Follow Up Plan Adult BMI Follow Up Plan [facility] Start: 2018 Adult BMI Screening Adult BMI Screen ing [facility] Start: 2012 Depression Screening Depression Scre ening [facility] Start: 2012 Tobacco Screening Tobacco Screening [facility] Start: 2011 DTaP,Tdap and Td Vaccines (6 - Tdap) DTaP,Tdap and Td Vaccines (6 - Tdap) [facility] Start: 2000 Screening for Chlamy shreyas trachomatis Chlamydia Screening [facility] Payers Date Payer Category Payer Self-pay 2022 Unknown [id number] 2019 Private Health Insurance 2000 Unknown [id number] 2.16.84 [id number] 2000 Unknown [id number] 2.16.84 [id number] 2000 Unknown [id number] 2.16.84 [id number] 2000 Unknown [id number] 2.16.84 [id number] 2000 Unknown [id number] 2.16.84 [id number] 2000 Unknown [id number] 2.16.84 [id number] 2000 Unknown [id number] 2.16.84 [id number] 2000 Unknown [id number] 2.16.84 [id number] 2000 Unknown [id number] 2.16.84 0.1.522863.3.579.2.593 2000 Unknown [id number] 2.16.84 0.1.670818.3.579.2.593 2000 Unknown [id number] 2.16.84 0.1.500821.3.579.2.593 2000 Unknown [id number] 2.16.84 0.1.049194.3.579.2.593 2000 Unknown [id number] 2.16.84 0.1.136818.3.579.2.593 2000 Unknown [id number] 2.16.84 0.1.858662.3.579.2.593 2000 Unknown [id number] 2.16.84 0.1.420388.3.579.2.593 2000 Unknown [id number] 2.16.84 0.1.197373.3.579.2.593 2000 Unknown [id number] 2.16.84 0.1.896992.3.579.2.593 2000 Unknown [id number] 2.16.84 0.1.743178.3.579.2.593 2000 Unknown [id number] 2.16.84 0.1.604870.3.579.2.593 2000 Unknown [id number] 2.16.84 0.1.060190.3.579.2.593 2000 Unknown [id number] 2.16.84 0.1.776304.3.579.2.593 2000 Unknown [id number] 2.16.84 0.1.556618.3.579.2.593 2000 Unknown [id number] 2.16.84 0.1.803247.3.579.2.593 2000 Unknown [id number] 2.16.84 0.1.245868.3.579.2.593 2000 Unknown [id number] 2.16.84 0.1.291261.3.579.2.593 2000 Unknown [id number] 2.16.84 0.1.683252.3.579.2.593 2000 Unknown [id number] 2.16.8 40.1.328445.3.579.2.727 2000 Unknown [id number] 2.16.8 40.1.308207.3.579.2.727 2000 Unknown [id number] 2.16.8 40.1.909197.3.579.2.727 2000 Unknown [id number] 2.16.8 40.1.691978.3.579.2.1286 2000 Unknown [id number] 2.16.8 40.1.665970.3.579.2.1285 2000 Unknown [id number] 2.16.8 40.1.051687.3.579.2.128 2000 Unknown [id number] 2.16.8 40.1.083287.3.579.2.1285 2000 Unknown [id number] 2.16.8 40.1.691419.3.579.2.128 2000 Unknown [id number] 2.16.84 0.1.076133.3.579.2.1258 2000 Unknown [id number] 2.16.84 0.1.528765.3.579.2.1258 2000 Unknown [id number] 2.16.84 0.1.068503.3.579.2.1258 2000 Unknown [id number] 2.16.84 0.1.531577.3.579.2.1258 2000 Unknown [id number] 2.16.84 0.1.323045.3.579.2.1258 2000 Unknown [id number] 2.16.84 0.1.582063.3.579.2.1258 2000 Unknown [id number] 2.16.84 0.1.438233.3.579.2.1258 2000 Unknown [id number] 2.16.84 0.1.780755.3.579.2.1258 2000 Unknown [id number] 2.16.84 0.1.747922.3.579.2.1258 2000 Unknown [id number] 2.16.840 .1.888503.3.579.2.1258 2000 Unknown [id number] 2.16.840 .1.418329.3.579.2.1258 2000 Unknown [id number] 2.16.840 .1.515446.3.579.2.1259 1959 Medicaid [id number] 1959 Private Health Insurance [id number] 1959 Self-pay [id number] Unknown [id number] 2.16.8 40.1.181181.3.579.2.531 Unknown [id number] 2.16.8 40.1.893703.3.579.2.531 Social History Date Type Detail Facility Tobacco [facility] Comment on above: denies Tobacco smoking status No Smokin g Status Entered [facility] Start: 09-24-2023 End: 10-18-2023 Sex Assigned At Female [facility] Start: 03-05-2023 End: 09-24-2023 Tobacco smoking status NHIS Never smoked tobacco (finding) [facility] Start: 2000 Sex Assigned At Female F [facility] Start: 09-24-2023 Tobacco use and exposure Smokeless tobacco non-user [facility] Start: 09-26-2023 End: 10-18-2023 Alcohol intake Ex-drinker (finding) [facility] Start: 09-24-2023 End: 10-18-2023 History of Social function [facility] Start: 06-14-[address] [facility] Start: 2000 Sex Assigned At Not on file [facility] Within the past 12 months we worried whether our food would run out before we got money to buy more. Never True [facility] Functional Status Date Assessment Result Facility 01-11-2023 Functional Status N/A [facility] 12-07-2022 Functional Status N/A [facility] Clinical Notes 06-02-2022 to 10-18-2023 Verona Decker [...] Medical History: Diagnosis Date Anxiety Bipolar disorder ([facility]) Chronic cholecystitis Depression SURGICAL HISTORY: Past Surgical [...] TESTS AND ULTRASOUND REPORTS: Referral records and epic chart were reviewed Pertinent Ultrasound findings are [...] of level 2 anatomy ultrasound, scheduled through [facility] Patient to return in 12 weeks at 32 weeks' gestation for re-evaluation of bilateral urinary tract dilation, scheduled through [facility] DISPOSITION: At this point the patient is in complete care of her rotary shear operator. Patient does have ultrasound scheduled with us. Thank you for allowing me to participate in the care of Darline Falcon. If there any questions please do not hesitate to contact us. Total time spent was 42 minutes: Preparing to see the patient (e.g., review of tests) Obtaining and/or reviewing separately obtained history Performing a medically appropriate examination and/or evaluation Counseling and educating the patient/family/caregiver Ordering medications, tests, or procedures Referring and communicating with other health animal daycare provider (not separately reported) Documenting clinical information in the electronic or other health record Verona Decker MD Maternal- Medicine [facility] [address] [place] [address] [facility], the CDC, and other organizations representing maternal and public health professionals recommend that , , and lactating people and those considering receive the COVID-19 vaccination. Vaccination is the best method to reduce maternal and complications of SARS-CoV-2 infection. This document was created with [employer] technology. Though I make every effort to review the dictation as it is transcribed, on occasion the spoken word can be misinterpreted by the technology leading to inappropriate words, phrases, or sentences. This note is addressed to the requesting provider as a consultation for clinical guidance. Specific medical abbreviations are occasionally used and those are generally approved by the [place]?Board of?Obstetrics and?Gynecology?as well as?Gayle s abbreviations. The above plan of care was based solely on the diagnoses for which a consultation was requested. ?More frequent testing may be indicated based on her other medical/obstetrical conditions. The management of other or medical conditions is beyond the scope of requested consultation and will continue to be followed by the primary rotary shear operator or primary care provider. Note to patient: [...] male Have you been seen here at [facility] in a previous ? No Recent ER visits or hospitalizations? No Bring blood sugar log or meter with you today? (Please bring them with you for every visit at [facility]) n/a Traveled outside the country in the past 6 month no Any concerns that you would like me to mention to the provider today? No documented in this encounter [facility] 01-11-2023 Hospital Discharg e instructions Patient Education [...] are sitting or lying down. Medicines Take sotu-wxt-hgkdjuc and prescription medicines only as told by [...] provider. Document Revised: 07/13/2021 Document Reviewed: 07/13/2021 [employer] Patient Education 2022 [employer] 01/11/2023 17:05:20 Contusion Contusion A contusion is [...] sitting or lying down. General instructions Take njmk-jlp-cvmaeqd and prescription medicines only as told by [...] compression, and elevation. You may be given pvvc-evf-lwkuwtl medicines for pain. Contact a health care [...] provider. Document Revised: 07/04/2022 Document Reviewed: 06/15/2022 [employer] Patient Education 2022 [employer]. Follow Up Care 01/11/2023 15:31:57 With:Madhavi Bustamante Address: [address] [place] [address]- Business (1) When:01/14/2023 16:47:05 [facility] 01-11-2023 Evaluation + Plan note Extrac yolanda from: Title:ED Note Author:Derek Salcido PA-C te:01/11/23 Finger sprain (S63.619A: Uns pecified sprain of unspecified finger, initial encounter) Hand contusion (S60.229A: Contusion of unspecified hand, initial encounter) Orders: Finger Splint Application XR Hand 3+ Views Left [facility]04-07-2023 Hospital Discharge instructions Patient Education 12/07/2022 [...] water added (diluted fruit juice). Eat bland, xcpx-ly-jlynjq foods in small amounts as you are able. These foods include bananas, applesauce, rice, lean meats, toast, and crackers. Avoid fluids that contain a lot of sugar or caffeine, such as energy drinks, sports drinks, and soda. Avoid alcohol. Avoid spicy or fatty foods. General instructions Take rrfa-mml-qbuiysc and prescription medicines only as told by your health care provider. Drink enough fluid to keep your urine pale yellow. Wash your hands often using soap and water. If soap and water are not available, use hand charge entry specialist. Make sure that all people in your [...] eating and drinking to prevent dehydration. Take iaqq-dzs-xcuqtgy and prescription medicines only as told by [...] 08/20/2006 Document Revised: 12/12/2019 Document Reviewed: 01/28/2019 [employer] Patient Education 2020 [employer]. 12/07/2022 23:48:57 Cholelithiasis Cholelithiasis Cholelithiasis is a [...] gallstones. Follow these instructions at home: Take uinx-qej-obznicp and prescription medicines only as told by [...] 08/16/2006 Document Revised: 08/02/2018 Document Reviewed: 05/06/2017 [employer] Patient Education 2020 [employer]. Follow Up Care 12/07/2022 21:26:38 With:Fernando Clark Address: [address] [place] [address], [facility] [address] [place] [address] [phone] Business (1) When:12/10/2022 Comments:General surgeon in [place] With:Willie LOZADA Address: [address], [address] [facility] [address] [place] [address]- Business (1) When:12/10/2022 Comments:General surgeon at [place] With:Please return to the ED with any new or worsening symptoms including worsening pain, fevers and chills, worsening nausea and inability to tolerate a liquid diet. Address:Unknown When: Unknown With:You may follow with the general surgeon recommended to by your primary care provider. You have alsobeen provided with the information for the local [facility] general surgeons. Address:Unknown When: Unknown [facility]04-06-2023 Evaluation + Plan noteExtracted from: Title:ED Note Author:Lupis Miller PA-C [place] e:12/07/22 Cholelithiases (K80.20: Calc ulus of gallbladder without cholecystitis without obstruction) Nausea (R11.0: Nausea) Orders: dicyclomine, 10 mg = 1 cap(s), Oral, QID, PRN Pain, X 7 day(s), # 28 cap(s), Refills(s) 0, Pharmacy: [facility]/pharmacy #[id number], 167.6, cm, 12/07/22 21:32:00 EDT, Height/Length [...] day(s), # 12 tab(s), Refills(s) 0, Pharmacy: [facility]/pharmacy #[id number], 167.6, cm, 12/07/22 21:32:00 EDT, Height/Length [...] Diagnostic Tests Pending * Urine Culture 12/07/22 [facility]04-03-2023 Evaluation + Plan note Diagnostic Tests Pending * ANGEL w/Reflex if POS 12/04/22 [facility]09-30-2022 NoteOP Note OPERATION DATE: 06/03/2022 PROCEDURE: Primary low transverse section. PREOPERATIVE DIAGNOSIS: 1. Intrauterine 39 weeks. 2. Failure to induce. 3. Maternal discomfort. 4. Maternal intolerance to labor, requesting . POSTOPERATIVE DIAGNOSIS: 1. Intrauterine 39 weeks. 2. Failure to induce. 3. Maternal discomfort. 4. Maternal intolerance to labor, requesting . ANESTHESIA: Spinal with Duramorph. SURGEON: John Wilson D.O. FIELD SERVICE TECHNICIAN POULTRY: JOSÉ Burnham URINE OUTPUT: Yellow and clear. [...] to the Recovery Room in stable condition.[facility] [id number] Note DISCHARGE SUMMARY DISCHARGE DATE: 06/17/2022 PRIMARY [...] pain free and no longer on narcotics.[facility] [id number] NoteOPERATIVE NOTE OPERATION DATE: 06/04/2022 PROCEDURE: Primary low transverse section. PREOPERATIVE DIAGNOSIS: 1. Intrauterine 39 weeks. 2. Failure to induce. 3. Maternal discomfort. 4. Maternal intolerance to labor, requesting . POSTOPERATIVE DIAGNOSIS: 1. Intrauterine 39 weeks. 2. Failure to induce. 3. Maternal discomfort. 4. Maternal intolerance to labor, requesting . ANESTHESIA: Spinal with Duramorph. SURGEON: John Wilson D.O. FIELD SERVICE TECHNICIAN POULTRY: JOSÉ Burnham URINE OUTPUT: Yellow and clear. [...] to the Recovery Room in stable condition.[facility] CenterEvaluation noteNo assessment information availableGeorgetown Behavioral Hospital Ctr Work Phone: Evaluation note* Diagnosis 20 weeks gestation of - Primary Abnormal thyroid function test Nonspecific abnormal results of thyroid function study Bipolar affective disorder, remission status unspecified ([facility]) Depression affecting Pyelectasis of fetus on ultrasound documented in this [facility] Diagnosis Abnormal thyroid function test- Primary Nonspecific abnormal results of thyroid function study Pyelectasis of fetus on ultrasound documented [facility] Narrative No data available for this section [facility] No data available for this section [facility]ructionsNot on filedocumented in this encounter [facility] SystemInstructionsNot on filedocumented in this encounter [facility]ructionsNot on filedocumented in this encounter [facility] No data available for this section [facility] Summary Purpose Family History No Family [...] without consult Verona Decker MD [address] [facility] 1[address] [place] [address] [facility] [address] [place] [address] Referral ID Status Reason Start Date Expiration Date V isits Requested Visits Authorized [id number] Pending Review 10/19/2023 10/18/2024 1 1 Additional Source Comments INFORMATION SOURCE (unrecogn ized section and content) DATE CREATED AUTHOR 11/01/2022 [facility] DATE CREATED AUTHOR AUTHOR'S ORGANIZ ATION 01/12/2023 [facility] DATE CREATED AUTHOR AUTHOR'S ORGANIZ ATION 05/04/2023 [facility] DATE CREATED AUTHOR AUTHOR'S ORGANIZ ATION 01/13/2024 [facility] DATE CREATED AUTHOR AUTHOR'S ORGANIZ ATION 02/13/2024 [facility] EPIC Patient Care team informatio n (unrecognized section [...] BE BASED ON THE PRIMARY CLINICAL RECORDS. [facility]. provides no warranty or guarantee of the accuracy or completeness of information in this document.
[2024-02-21 12:08] LABS: Bilirubin Urine NEGATIVE (NEGATIVE); Blood Urine LARGE (NEGATIVE); Clarity Urine SL CLOUDY (CLEAR); Color Urine LT. YELLOW (YELLOW); Glucose Urine UA NEGATIVE (NEGATIVE); Ketones Urine NEGATIVE (NEGATIVE); Leukocyte Esterase Urine MODERATE (NEGATIVE); Nitrite Urine NEGATIVE (NEGATIVE); Protein Urine NEGATIVE (NEG/TRACE); Specific Gravity Urine 1.015 (1.005-1.025)
[2024-02-21 12:19] LABS: Bacteria Urine MODERATE #/HPF (NONE SEEN); RBC Urine 20-50 #/HPF (0-2); Urine Microscopic Indicated YES
[2024-02-21 12:20] LABS: Cast Seen? NONE SEEN #/LPF (NONE SEEN); Crystals Seen? None Seen #/HPF (None Seen); Mucus Urine SMALL (NONE SEEN); Squamous Epithelial Cell Urine MANY #/LPF (NONE/RARE); Transitional Epi Cells Urine RARE #/LPF (NONE SEEN)
[2024-02-21 12:21] LABS: Urine Culture Indicated YES
[2024-02-21] MEDS: 0.9 % SODIUM CHLORIDE 1,000 ML 1000 ML IV (13:01)
[2024-02-21] MEDS: CEFAZOLIN SODIUM/DEXTROSE,ISO 2 GM/50 ML PIGGYBACK IV (13:02)
== END 2024-02-21 14:20 | disposition home or self-care (01) ==
LOC: FBC 11:27
PROVIDERS: Admitting Provider Obstetrics & Gynecology; PCP Student in an Organized Health Care Education/Training Program; Visit Provider Obstetrics & Gynecology
DX: O26.893 Other specified pregnancy related conditions, third trimester (principal); M54.9 Dorsalgia, unspecified; Z3A.38 38 weeks gestation of pregnancy
CPT/HCPCS: 59025; 81001; 87086; 96374; G0378; G0379; J0690

== ENCOUNTER 2024-02-29 05:32 | Inpatient (IN) | payer OTHER, SELFPAY ==
[2024-02-29] VITALS (38 sets, daily range): BP systolic 113–134; BP diastolic 66–80; PULSE 65–90; TEMP 36.5–37.1; O2SAT 95–100
--- OUTSIDE RECORDS SUMMARY | 2024-02-29 05:36 | XMS_ITS ---
Patient Summarization (C-CDA 2.1 CCD) Created on: February 29, 2024 DARLINE FALCON : 2000 Sex: Female Author Organization Sample organization Care Team Providers Care Dining Room Busser Name Role Phone REQUEST, DR SHERMAN LISTED [...] PRASHANTH ., DR HARKINS Admitting Unavailable DBOUK, STEFF Consulting Unavailable FLORENTINO BOWEN Consulting Unavailable PRASHANTH [...] Unavailable PRASHANTH ., DR HARKINS Attending Unavailable [place], DR ELIAS Saenz Consulting Unavailable REQUEST, NONE LISTED Primary Care Unavaila ble PRASHANTH ., DR HARKINS Consulting Unavailable REQUEST, DR NONE LISTED Primary Care Unavaila ble PRASHANTH ., DR HARKINS Admitting Unavailable PRASHANTH ., DR HARKINS Attending Unavailable [place], DR ELIAS Saenz Consulting Unavailable PRASHANTH ., [...] Primary Care Provider Unavailraghu e JOHN WILSON R Referring Unavailable PRASHANTHJOHN R Referring Unavailable PRASHANTHJOHN R Referring Unavailable DECKER, VERONA Attending Unavailable JOHN WILSON R Referring Unavailable DECKER, VERONA Referring Unavailable PRASHANTHJOHN OLIVERA Attending Unavailable SLOANE BRITT Attending Unavailable PRASHANTH, JOHN Attending Unavailable BALWINDER, SLOANE Attending Unavailable PRASHANTH, OJHN Attending Unavailable PRASHANTH, JOHN Attending Unavailable PRASHANTH, JOHN Attending Unavailable PRASHANTH, JOHN Attending Unavailable PRASHANTH, JOHN Attending Unavailable PRASHANTH, JOHN Attending Unavailable PRASHANTH, JOHN Attending Unavailable PRASHANTH, JOHN Attending Unavailable Encounters Encounter Date Encounter Type Care Provider Facility Start: 02-20-2024 End: 02-20-2024 ambulatory JOHN PRASHANTH Not Available Start: 02-12-2024 End: 02-12-2024 ambulatory JOHN PRASHANTH Not Available Start: 02-06-2024 End: 02-06-2024 ambulatory JOHN PRASHANTH Not Available Start: 01-30-2024 End: 01-30-2024 ambulatory JOHN PRASHANTH Not Available Start: 01-16-2024 End: 01-16-2024 ambulatory JOHN PRASHANTH Not Available Start: 01-11-2024 End: 01-12-2024 ambulatory JOHN R [facility] Start: 01-03-2024 End: 01-03-2024 ambulatory JOHN PRASHANTH Not Available Start: 12-20-2023 End: 12-20-2023 ambulatory JOHN PRASHANTH Not Available Start: 11-22-2023 End: 11-22-2023 ambulatory SLOANE BRITT Not Available Start: 11-16-2023 End: 11-17-2023 ambulatory JOHN R [facility] Start: 10-25-2023 End: 10-25-2023 ambulatory JOHN PRASHANTH Not Available Start: 10-19-2023 Orders Only [facility] rnal- Medicine at [facility] Comment on above: Abnormal thyroid fun ction test (Primary Dx); Pyelectasis of fetus on ultrasound Start: 10-18-2023 End: 10-19-2023 ambulatory [facility] Start: 10-18-2023 End: 10-18-2023 ambulatory [facility] Start: 10-18-2023 End: 10-18-2023 Office consultation new/estab patient 60 min Verona Decker MD Work Phone: Maternal- Medicine at [facility] Comment on above: 20 weeks gestation o f (Primary Dx); Abnormal thyroid function test; Bipolar affective disorder, remission status unspecified ([facility]); Depression affecting ; Pyelectasis of fetus on ultrasound Start: 09-26-2023 End: 09-26-2023 ambulatory SLOANE BRITT Not Available Start: 09-24-2023 Chart abstracting Verona Decker MD Work Phone: Maternal- Medicine at [facility] Start: 08-28-2023 End: 08-28-2023 ambulatory JOHN PRASHANTH Not Available Start: 08-09-2023 End: 08-09-2023 ambulatory JOHN PRASHANTH Not Available Start: 08-03-2023 End: 08-03-2023 ambulatory JOHN PRASHANTH Not Available Start: 03-19-2023 End: 03-[facility] Start: 03-05-2023 End: 03-05-2023 [facility] Start: 03-05-2023 End: 03-05-2023 ambulatory MD Madhavi Bustamante [facility] Work Phone: Start: 03-05-2023 End: 03-05-2023 Patient encounter procedure MD Madhavi Bustamante [facility] Work Phone: Start: 01-11-2023 End: 01-11-2023 Emergency department patient visit Yash Med[place] Start: 01-11-2023 End: 01-11-2023 Emergency department patient visit Yash Medina [facility] Start: 12-07-2022 End: 12-08-2022 Emergency department patient visit Yash Medina [place] Start: 12-07-2022 End: 12-07-2022 Emergency department patient visit Yash Medina [facility] Start: 12-04-2022 End: 12-05-2022 ambulatory Madhavi Bustamante [place] Start: 12-04-2022 End: 12-04-2022 Patient encounter procedure Madhavi Manjit Bustamante [facility] Start: 10-24-2022 End: 10-24-[address] JOHN WILSON . Facility:[facility] Start: 06-14-[address] NONE LISTED REQUEST Facility:[facility] Start: 06-07-2022 End: 06-07-[address] NONE LISTED REQUEST Facility:[facility] Start: 06-02-2022 End: 06-05-2022 Evaluation and management of inpatient DR JOHN WILSON . Facility:[facility] Start: 05-31-2022 End: 05-31-[address] JOHN WILSON . Facility:[facility] Start: 05-26-2022 Evaluation and manag ement of inpatient DR JOHN WILSON . Facility:[facility] Start: 05-24-2022 End: 05-24-[address] JARED MENDOZA . Facility:[facility] Start: 05-24-2022 End: 05-25-[address] JOHN WILSON . Facility:[facility] Start: 05-17-2022 End: 05-17-[address] JARED MENDOZA . Facility: Start: 05-16-2022 End: 05-16-[address] JOHN [...] 11-03-[address] JOHN WILSON . Facility: Medications Current Medications Medication Drug Class(es) Dates [...] # 30 tab(s), Refills(s) 2, Pharmacy: [facility]/pharmacy #[id number], 168, cm, 05/19/20 1:25:00 EDT, [...] # 28 cap(s), Refills(s) 0, Pharmacy: [facility]/pharmacy #[id number], 167.6, cm, 12/07/22 21:32:00 EDT, [...] # 30 tab(s), Refills(s) 5, Pharmacy: [facility]/pharmacy #[id number], 168, cm, 05/19/20 1:25:00 EDT, Height/Length Dosing, 90, kg, 05/19/20 1:25:00 EDT, Weight Dosing Start Date: 06/17/20 Status: Ordered levonorgestrel 0.026177 mg/hr intrauterine system (4 sources) Progestin, Progestin-containing [...] # 60 tab(s), Refills(s) 5, Pharmacy: [facility]/pharmacy #[id number], 168, cm, 05/19/20 1:25:00 EDT, [...] Pain, # 20 tab(s), Refills(s) 0, Pharmacy: [facility]/pharmacy #[id number], 168, cm, 05/07/21 16:26:00 EDT, Height/Length Dosing, 80, kg, 05/07/21 16:26:00 EDT, Weight Dosing Start Date: 05/07/21 Status: Ordered Start: 05-19-2020 take 1 tablet by maribell th twice daily Naprosyn 500 mg Tab 500 mg = 1 tab(s), Oral, BID, # 20 tab(s), Refills(s) 0, [id number] 168, cm, 05/19/20 1:25:00 EDT, Height/Length [...] # 12 tab(s), Refills(s) 0, Pharmacy: [facility]/pharmacy #[id number], 167.6, cm, 12/07/22 21:32:00 EDT, [...] # 30 tab(s), Refills(s) 5, Pharmacy: [facility]/pharmacy #[id number], 168, cm, 05/19/20 1:25:00 EDT, Height/Length Dosing, 90, kg, 05/19/20 1:25:00 EDT, Weight Dosing Start Date: 06/17/20 Status: Ordered Payers Date Payer Category Payer Self-pay 2022 Unknown [id number] 2019 Private Health Insurance 2000 Unknown [id number] 2.16.84 0.1.183042.3.579.2.593 2000 Unknown [id number] 2.16.84 0.1.751570.3.579.2.593 2000 Unknown [id number] 2.16.84 0.1.142415.3.579.2.593 2000 Unknown [id number] 2.16.84 0.1.612398.3.579.2.593 2000 Unknown [id number] 2.16.84 0.1.455947.3.579.2.593 2000 Unknown [id number] 2.16.84 0.1.899825.3.579.2.593 2000 Unknown [id number] 2.16.84 0.1.892396.3.579.2.593 2000 Unknown [id number] 2.16.84 0.1.421988.3.579.2.593 2000 Unknown [id number] 2.16.84 0.1.966594.3.579.2.593 2000 Unknown [id number] 2.16.84 0.1.476210.3.579.2.593 2000 Unknown [id number] 2.16.84 0.1.285297.3.579.2.593 2000 Unknown [id number] 2.16.84 0.1.945894.3.579.2.593 2000 Unknown [id number] 2.16.84 0.1.707698.3.579.2.593 2000 Unknown [id number] 2.16.84 0.1.118875.3.579.2.593 2000 Unknown [id number] 2.16.84 0.1.060987.3.579.2.593 2000 Unknown [id number] 2.16.84 0.1.225120.3.579.2.593 2000 Unknown [id number] 2.16.84 0.1.121143.3.579.2.593 2000 Unknown [id number] 2.16.84 0.1.250930.3.579.2.593 2000 Unknown [id number] 2.16.84 0.1.613151.3.579.2.593 2000 Unknown [id number] 2.16.84 0.1.806183.3.579.2.593 2000 Unknown [id number] 2.16.84 0.1.473612.3.579.2.593 2000 Unknown [id number] 2.16.84 0.1.487771.3.579.2.593 2000 Unknown [id number] 2.16.84 0.1.852849.3.579.2.593 2000 Unknown [id number] 2.16.84 0.1.415742.3.579.2.593 2000 Unknown [id number] 2.16.84 0.1.648782.3.579.2.593 2000 Unknown [id number] 2.16.84 0.1.703093.3.579.2.593 2000 Unknown [id number] 2.16.8 40.1.310607.3.579.2.727 2000 Unknown [id number] 2.16.8 40.1.181957.3.579.2.727 2000 Unknown [id number] 2.16.8 40.1.467505.3.579.2.727 2000 Unknown [id number] 2.16.8 40.1.132148.3.579.2.1286 2000 Unknown [id number] 2.16.8 40.1.416166.3.579.2.128 2000 Unknown [id number] 2.16.8 40.1.057858.3.579.2.1286 2000 Unknown [id number] 2.16.8 40.1.759816.3.579.2.1286 2000 Unknown [id number] 2.16.8 40.1.526543.3.579.2.1286 2000 Unknown [id number] 2.16.84 0.1.301241.3.579.2.9 2000 Unknown [id number] 2.16.84 0.1.620644.3.579.2.1258 2000 Unknown [id number] 2.16.84 0.1.191786.3.579.2.1258 2000 Unknown [id number] 2.16.84 0.1.564177.3.579.2.1258 2000 Unknown [id number] 2.16.84 0.1.435665.3.579.2.1258 2000 Unknown [id number] 2.16.84 0.1.098384.3.579.2.1258 2000 Unknown [id number] 2.16.84 0.1.808094.3.579.2.1258 2000 Unknown [id number] 2.16.84 0.1.849644.3.579.2.1258 2000 Unknown [id number] 2.16.84 0.1.599955.3.579.2.1258 2000 Unknown [id number] 2.16.84 0.1.587734.3.579.2.1258 2000 Unknown [id number] 2.16.840 .1.667168.3.579.2.1258 2000 Unknown [id number] 2.16.840 .1.726666.3.579.2.1258 2000 Unknown [id number] 2.16.840 .1.915700.3.579.2.1259 1959 Medicaid [id number] 1959 Private Health Insurance [id number] Self-pay [id number] Unknown [id number] 2.16.8 40.1.361527.3.579.2.531 Unknown [id number] 2.16.8 40.1.554978.3.579.2.531 Plan of Treatment Date Care Activity Detail Author Start: 10-19-2024 End: 10-19-2024 US MFM with or without consult US MFM with or without consult Imaging Routine Abnormal thyroid function test Pyelectasis of fetus on ultrasound Expected: 10/19/2024 (Approximate), [facility] Comment on above: Expected: 10/19/2024 (Approximate), Expires: 10/19/2024 Start: 10-18-2024 Adult BMI Screening Adult BMI Screen ing [facility] Start: 10-18-2024 Tobacco Screening Tobacco Screening [facility] Start: 11-16-2023 End: 11-16-2023 Patient encounter procedure 11/16/2023 11:00 AM EDT Appointment [facility] [address] [place] [id number] [facility] Start: 10-18-2023 End: 10-18-2023 Patient encounter procedure 10/18/2023 10:30 AM EST Office Visit Maternal- Medicine at [facility] [address] [facility] [place] [address] Verona Decker MD [address] [address] Maternal- Medicine at [facility] Start: 10-18-2023 End: 10-18-2023 Patient encounter procedure 10/18/2023 9:15 AM EST Appointment [facility] [address] [place] [address] [facility] Start: 05-04-2023 Influenza vaccination Influenza Vacc ine [facility] Start: 2021 Screening for malign ant neoplasm of cervix Pap Smear [facility] Start: 2018 Adult BMI Follow Up Plan Adult BMI Follow Up Plan [facility] Start: 2018 Adult BMI Screening Adult BMI Screen ing [facility] Start: 2012 Depression Screening Depression Scre ening [facility] Start: 2012 Tobacco Screening Tobacco Screening [facility] Start: 2011 DTaP,Tdap and Td Vaccines (6 - Tdap) DTaP,Tdap and Td Vaccines (6 - Tdap) [facility] Start: 2000 Screening for Chlamy shreyas trachomatis Chlamydia Screening [facility] Problems Active Problems Problem Classification Problem Date [...] Unclassified (3 sources) fractured right leg 04-18-2010 Procedures Date Procedure Procedure Detail Performing Clinician [...] Meniscus Rep air Right Leg Madhavi Bustamante Results Test Name Value Interpretation Reference Range Facility THYROID PROFILEon 10-18-2023 Free T4 [Mass/Vol] 0.70 ng/dL Normal 0.61-1.60 [facility] Comment on above: Performed By: #### T HYR #### [facility] ([id number]) [address] [place] [address] TSH 0.72 uIU/mL Normal 0.49-4.67 [facility] Comment on above: Performed By: #### T HYR #### [facility] ([id number]) [address] [place] [address] Thyroid profile includes TSH FT4on 10-18-2023 TSH Qn 0.72 m[IU]/L [facility] Free Cell DNAon 2022 [facility] Alkaline Phosphataseon 03-19 ALP [Catalytic activity/Vol] 71 U/L Normal 34-104 [facility] Comment on above: Performed By: #### B ILTD, LIPASE, SLAONE, ALP #### [facility] [address] Amylaseon 03-19-2023 Amylase [Catalytic activity/Vol] 71 U/L Normal 29-103 [facility] Comment on above: Performed By: #### B ILTD, LIPASE, SLOANE, ALP #### [facility] [address] Bilirubin, Total and Directo n 03-19-2023 Bilirubin [Mass/Vol] 1.0 mg/dL Normal 0.3-1.0 [facility] Comment on above: Performed By: #### B ILTD, LIPASE, SLOANE, ALP #### [facility] [address] [place] [address] [place] Bilirubin,Indirect 0.9 mg/dL Normal [facility] Comment on above: Performed By: #### B ILTD, LIPASE, SLOANE, ALP #### [facility] [address] Bilirubin.indirect [Mass/Vol] 0.10 mg/dL Normal 0.03-0.18 [facility] Comment on above: Performed By: #### B ILTD, LIPASE, SLOANE, ALP #### [facility] [address] HCG,Urineon 03-19-2023 Beta HCG ( test) Ql (U) Negative Normal [facility] Comment on above: Result Comment: PERF ORMED BY: [address] [place] [address] PATHOLOGIST [employer] MANAGER BARBARA FERNANDEZ M.D. Performed By: #### U HCG #### [facility] [address] Juan 03-19-2023 L Specimen: [id number] Received: 03/19/23 Status: JULIEN Jeniffer Num: [id number] Spec Type: Surgical Subm Dr: Angus Benedict DO Tissues: A Gallbladder (GALLBLADDER) Procedures: Saranya STANFORD/Ariel L3 Age/ Patient Sex Location Account Attending Physician Darline Falcon [place] [id number] Angus Benedict, SPEC NUM: [id number] RECD: 03/19/23 STATUS: TAEHeavenly JENIFFER NUM: [id number] CLAY: 03/19/[address] [facility] [address]: Angus Bneedict DO ENTERED: 03/19/[address] [facility] [address]: EARL TYPE: Surgical DEPT: S ORDERED: [...] identified with a rubbery, yellow-vergara cut surface. Casual Shoe Inspector sections are submitted in one cassette labeled A1. Specimen: [id number] Received: 03/19/23 Status: JULIEN Weldon Num: [id number] Spec Type: Surgical Subm Dr: Angus Benedict DO Tissues: A Gallbladder (GALLBLADDER) Procedures: Justus STANFORD Patient: FalconDarline [id number] (Continued) Specimen: [id number] Received: 03/19/23 (Continued) Signed (signature on file) Haile Dc MD 03/21/23 1203 Specimen: [id number] Received: 03/19/23 Status: JULIEN Weldon Num: [id number] Spec Type: Surgical Subm Dr: Angus Benedict DO Tissues: A Gallbladder (GALLBLADDER) Procedures: Justus STANFORD Patient: Darline Falcon [id number] (Continued) Specimen: [id number] Received: 03/19/23 (Continued) Microscopic Description One H E slide reviewed. The microscopic examination confirms the diagnosis. CPT Codes 61369 Specimen: [id number] Received: 03/19/23 Status: JULIEN Weldon Num: [id number] Spec Type: Surgical Subm Dr: Angus Benedict DO Tissues: A Gallbladder (GALLBLADDER) Procedures: HIEN, Gross/Ariel L3 Patient: Darline Falcon [id number] (Continued) Signed (signature on file) Haile Dc MD 03/21/23 1203 Normal [facility] Lipaseon 03-19-2023 Lipase [Catalytic activity/Vol] 32.0 U/L Normal 11.0-82.0 [facility] Comment on above: Result Comment: PERF ORMED BY: [place] [id number] PATHOLOGIST [employer] MANAGER BARBARA FERNANDEZ M.D. Performed By: #### B ILTD, LIPASE, SLOANE, ALP #### [address] Discharge Instructionson Discharge Instructions [id number] #1.00CD:127 Normal [facility] Consent for Treatmenton 01-01 Consent for Treatment [id number] #1.00CD:127 Normal [facility] ED Clinical Summaryon 2022 ED Clinical Summary [address] [address] ED Clinical Summary Person Information Name: DARLINE FALCON Mary Beth/[facility] Age: 22 Years : 2000 Sex: Female Language: Syrian PCP: Dianna PALOMO, Madhavi Saravia Marital Status: Single Phone: [phone] Visit Id: Visit Reason: Wrist pain-swelling; Hand [...] 01/11/2023 17:05:20 01/11/2023 17:05:20 01/11/2023 17:05:20 ADDRESS: [address] [place] [phone] PHYS DOC NOTES: MEDICAL INFORMATION: Prescriptions Given: [...] Address: When: Madhavi [place] [place] [address] Business (1) In 3 days 01/14/2023 DIAGNOSIS: Finger sprain; Hand contusion Normal [facility] ED Note-Physicianon 01-12-20 ED Note-Physician Basic Information [...] days 01/14/[address] [place] [address]- Business (1) Additional Instructions: Patient Education Finger Sprain, Adult Contusion Attestation Patient seen and evaluated by the physician hearing aid assistant. Attending physician was present in the emergency department and supervised care. This visit was performed by both the physician and an APC. I performed all aspects of the MDM as documented. This report was transcribed using voice recognition software. Every effort was made to ensure accuracy, however, inadvertently computerized frame stripper and crusher mistakes may be present. Appropriate healthcare PPE [...] oblique views (more content not included)... Normal [facility] Comment on above: Result Comment: Elec tronically [...] sitting or lying down. Medicines ? Take sczy-ffz-orfodls and prescription medicines only as told by [...] Reviewed: 07/13/2021 Elsevier Patient Education ? 2022 [employer] Contusion A contusion is a deep [...] any abernathy (more content not included)... Normal [facility] ED Patient Summaryon 023 ED Patient Summary [address] [address] Patient Discharge Instructions Person Information Name: DARLINE FALCON Age: 22 Years Arrival Date: 01/11/2023 15:30:18 Discharge Diagnosis: Finger sprain; Hand contusion Primary Care Physician: Madhavi Bustamante MD Provider Information Primary Provider: Yash Medina DO Advanced Dealer Analyst:Derek Salcido PA-C The exam and treatment you received in the Emergency Department were for an urgent problem and are not intended as complete care. It is important that you follow up with a doctor, nurse practitioner, or physician?s hearing aid assistant for ongoing care. If your symptoms [...] With: Address: When: Madhavi Bust[place] [address] Business (1) In 3 days 01/14/2023 In the event that this physician does not participate in your insurance network, please consult with your insurance company to find a nearby participating provider. Patient Education Materials: Finger Sprain, Adult; Contusion A MESSAGE TO ALL PATIENTS REGARDING OPIOIDS PRESCRIPTION OPIOIDS: WHAT YOU NEED TO KNOW Prescription opioids can be used to help relieve chjvpafr-ct-gncwwi pain and are often prescribed following a [...] be struggling with addiction, tell your health resident care technician and ask for guidance or call [facility] National Helpline at 3-593-902-YGYF. (more content not included)... Normal [facility] XR Hand 3+ Views Lefton 01-01 XR [...] LITA Technologist: NICOLA Technical Comments Radiation Dose: Kar in mGy = na DAP = na [facility] Coding Summary.on 12-12-2022 Coding Summary. CD:[id number] Ww+PGhlYWQ+VM3NFGYeP 55dbVTraJ7dA3AYSEaYY ywgQVBQTElOSyIgbmFtZ J3izODgOZEn IC8+TK9dADEhCgcuwQAq x7Y2dKL1J02hhh4wVVdg yEZ8OYNfEvVcxwbna2jk nKw8ZHbuFwndKhGo JQYywC36BKN5yM72Fz74 hAAfvITsk2liqNb0RpXv XPRqBVF7rSihBXbxr8Yd QFGeP74fiUUxn7Q3 IGNvbGxhcHNlOyBlbXB0 aG7qYDquyemoh6ecymtv Kom9as35fXLxq6X9yGF5 B7ZjwsQ4YKTfcPGg OhwpuDKMiU7mfzlet5kr asisEmSxAAPuEUj2USa3 GGYcnSsnBqBwYN84WVL9 OCDaddWnR0UwTDFs qFlzPqC7z4G6Kr5NW7EM RzbcF4BAKJCKSScotWR+ LU61tm68F7EpHxouIpe9 VNEwHZW9zEP5gD8q WUUiWDput9B2sMV6S8Dh mqWguk0nx3ejEOLoNIin T71omRRhz0N3DNDamQM2 LOKjwYunPlWokT60 Oyc+RTRkfSbve4DdGrvw o7eda2oizWb7IsjyCHZl xcKrgPkxCTL8s8LnUr0l RJGfiSL6yWC7uT0q NpPsRsE4HZgxV412UlQr vRQiGgjqR48oP7BwjUR+ BTIkFic6GXJlsDlcBN9r W7ZkCKRozzpizGOx mKrtSW2mYZOfkgveJTFb hS0cGOSmJ1v6VtImKjB2 ANfvO3DdFMIqvizbBf58 kR3fLuSyFrT4QWxe Q5BeplY7TSRqzOHcCKmh BQR8A27yn8G6ZIKmVMZi TRX5jIR0iR0rdXktkisb bGVmdDsgdmVydGlj NVxoOEpwA337WCZnqIjl PkNvZGluZyBEYXRlOiAg MDQvMTEvMjAyMzwvdGQ+ BATmAVU9qVruMTGc oWLxJWdxIr1eiIyddItz QB7vCQAexnrfFQMdjV3o FFFecWKnuHgiMB8rVJWo dxdlk030PaIpUYA4 BIPabNHfK3MzfL8wXiXe DAGyBHTmU1DtiXZhPJrt N006EWyrIlP0YAQrydOs I8VkCOTrhDzrMwA0 l4M4Gw8Fd1DpshzdR1Ek kFVqTuNtFhihSWw7K9Dg PjwvdHI+BQ73UKKsBG37 DUa2XBI8fNwsKMir PXZeJ7QqqY0sKuXhICAr ZGRkOyc+PHRhYmxlIHdp ZHRoPScxMDAlJyBzdHls RC9zYl7kFEPbEKTl iLxoaTPlIzWey9zhWOCy NKwzAA7oyZihA3YbzDE3 MKGte6k3Dx74P18hJ8Ry dXA+IRVaoUA4lYX0 pC1uSxEmXuV7MMmmI131 VrYjbLRyOhtwr6zjb8te yOx8VeR5QBLbmiXzwOsv LFJ6i7ZmQm45H25n IHdpZHRoPSIxNSUiIHZh gNdgxm2nvM6lTb6+PGNv jJX1bFG6sB6wPgZyDbV3 AHepN637WyAgpSDz Lkcnw1wui7xujVq1YwGz TCFfmjHmwAieKHZ0b8Pq Ys83A0WidWwdo2QsFqw0 wt24gPZbn3A8dXN8 L7ErGYOvfnqsyYHdgQlk LX0yNILbcpnxTVThfJ9q LPRiD9s7ZpUuTsQ5YRzq Q9UmnpZ2TDOnfQKn FHVkwXUGcV5xgthwg7dv puchYyRxVKNbLBv1HEr2 CJCkbUnwVmRsEBN3TmV7 WRN7yAJuvU7thPlz xohgwH4eEfy+LZC6jBMf qULMDF9aAjemyAK+PHRk QVT0pOtjGHddSHSzrT1g MECkR4s3FxXgElQ3 ZItzP0YicaP2HOQawXMy CZBkgFQRrJ9grthib6lc mapxDuXgYQItQHt4WGg8 LWFsaWduOiBsZWZ0 FrK8CJZ5bRYbdE8bqQdh gczogJ9nVlo+QmlydGgg WXJ2CAq3G4BiNxz9RBUd sTcvAE2woBJfIQzy Vf3xxDzpyIzfZK0qOQSi xqjcs754NaVqu7ftFLSr mIOvUUepGVE5Y73jx3E9 PYChZYFyRXT7bDE0 tT1lmHsenabohADqkBcz nyLrgJnoQYvpSVuoH043 KSZzmArzQuBnHKx1P3Zf Fiu9QJRqqZmgAJ5m cXKqBWxpZt9gsUahkAje HW5mIVQuojdvu129DrPq w0kmLPAqzJLdHQtmMKI4 A17hb4Q9OZQfGGRx PKI9lIW0zA3cgUlgkixw bGVmdDsgdmVydGljYWwt NMakL461SWNidXjxMoJc cDd1Y0DuVdy7NOOd gQfbEW7lgDTqWOtuJz6h fGxllVvsOK6tTMQzupge k861HpWvr7xeMYBhzBRh IIjcAIJ2F21hw9A8 EWXcOADtQSE5uQX0iO8u bGlnbjogbGVmdDsgdmVy lDbiMIurVUdzB614YFPa cDsnPlBhdGllbnQg BJolHDh2M6SgZqhodMJ+ JH74CHSoCM54bPKpcPJg k3xfhAc8MwUeDDDjRAQ1 pNlaTVrdr3PeSILt I82cfYUkq4I3XFTlbThy xPSfYfKnqHB5tH0vJChn kffwt0mhddtxKeaxw4ps xf40tD74O01sEEaa ZHRoPSIzMCUiIHZhbGln im8irP4gYe5+PGNvbCB3 sSZ2yB1eXKVhNgU9LExl Q099SyEqiNIpDpaz y5iqh4onqDa5EqX2DIQt xeUgzGwpWUB9x8JbFb35 Y18eTLmjDNJaHTJbTYQu IAKrtHuxed9ryV5m Ii8+JUTxiPH8bBG5jN1x UzGqQcO8TDdoQ407UvSz xDCmLtnkM16eV8EjgEF+ VJGqOxi9USVzbYos VS1xgVOjQVpzAj4oLFU5 JvDuCjIrBDpfC2SiSVCo mcylrmlweLA8BKDpELNm mT67Qa1taJohSNMo yZZHaU2ardspi5fycamz ToNuPSVbQRq7EBy4EVRl mItbNgKvNSY4YuU5GVA5 nSYgcE5huOhetekb pZ2vI3HaHNYysltkEx37 uW3nNbYoGmM3NLlwXld+ WklNTUVSTUFOLCBJVlkg TDwvdGQ+PHRkIHN0 bYrbNDlyWYIazT9rACCe F3p6EsMfUwA5AJtwH0It KKXremfcZi84cJ0wCmMx ZqW6CZxgH8CqysG6 NGXmnVTvCIqqFHO4I24j m4I6EVWcCNAaVNN5zJC0 zD0wsMmtjlkgmWDeqXvo dmVydGljYWwtYWxp U224GPVfpHvzObD9GmGv WpUwAVS8P9CcRjc1JFUj yVioLP1dtJQzFCjoXu4u eUsxhKhlHE1uEWJi zozoITUytP8jAYZqrKIh fZvtXO3eMBJgvtfhg325 KsVjMES1IVNrsMAvS5Ke lS4pNyMmGCRpXKZv M9QqeOXjMTysI833XBtm AdA4DQNlyzYfP9DvRLCf bDjhNaN6g5W9Gw7rOoNG ZWFyczwvdGQ+PHRk OEJ3pZzxDIgmGVIciK6x OYKuU4r9ZjYmGnU4LSen M9ZrLSGbkfscIf88dC1c UvEiYkV4IUqeF7Sc ieW7BIWopHRxANdjCOJ0 F81dn1A4QJDjVAQcXPS0 pID5hX2bbQywifbkpVZy dDsgdmVydGljYWwt LTqsF244ZVUylWfvIjPm bWFsZTwvdGQ+PHRkIHN0 pFjhXWqxBJOrpZ7zQFHr Q5k6ShHlUqP4FVye I6JeDSNrcctdDg40sT3s FsFtDjT5DEjbN2MohfB1 OQDhcCYiCTbiWPX5N16u k8A5AKBmVXMbVKO1 eNC1zF7hbCiqyfrsrKPr dDsgdmVydGljYWwtYWxp S984JAOorYpbKoVaCTLn ID8voXbyuGP+PC90 ke07R0BaZgqcUar4AORx GZX1sNB1cP6vLKPeQQic o8C9jRZ9Q3ItufAhnk7a i9psLHXyZHnqY82q bSZqt7I5IVWgvRF8VEDm iFumGmGvbY97Qcf+PGNv oBuwu8GeLnbcq3kea2yp eXy6FcRyGOCrrmAs vYqrUNU9d4KuUb63U93a IHdpZHRoPSIzMCUiIHZh gBeyww3mvH9kUc1+PGNv yOA6aZT0fJ2eGbIz ZqG6ZKkaN866TiFbiFVk Tyklo5geg9klnPm9CiQi NRXklnWdzBwhOGR0c0Mp Gk02N8DggCigy6Mi Jos7jy73wCUnu3W5pXF2 R9ZbJJWvuvqqjTJmsFac QA6mZDEdcxhmZLQscR6j NLKaB3m9UtMoCtN9 TTsbJ3OmjqC5LXZtpDXo OCJtfHRCfH6rvtnvf7ni logfGcXqNUSvEEn0FAu4 LWFsaWduOiBsZWZ0 PcV5YMJ5iIAihZ9twDbi hecvbF3mNbj+SKs6x6nt rAIwUQ9ypPV9PY48MG58 eOGdi8H3iBV9J6Np ABVxcpxaanavoDZ7OJMw DBDgtW04Dv3mtRcwBj5y PFJzUFV3KBYxgIToJ6Ce rO7mVdFgKILqUQLt K0OhkSJgSRieW797CPoi GmN9FQRximGjX9YkWLFn gYygDnG3k4Z2Vj3JKG90 LV42NH99lNSmm6E7 eIH4A1MtCPGepjgvcyyh mDW7FKBqUVXcfT37Ry4j jRpnHw9yYIHxAZQ9YUEr iWAuT1QseY6oEmNv CNTcAXKoP5YmnGBpUPuh F253STciCgA5ZPPebqXw J9NaUHPvyHckAjO0w8L4 Si4XEs79SH95BS25 pIJzt5W8vFL8G6HkDOXc xlgjnhtpaXW3FAGyWGRb mD64Qt0acExuFi1aFATj CCE8XQPocXUrU2Ii eZ4gXpYdKAHsHGFyE6Sa eIOvCNibP916MKouLvG8 ATWpheWrR1FjFLPumHod PrD8q8M6My1VKHdl emq7C8QgKorshGJ+PC90 GTPaCF60nCVudNGji9mk mIu7TyHnAOYoZTP4uUjf BFeao6QpLYLwP46d pKNfr1Q4 (more content not included)... Normal [facility] C Urineon 12-09-2022 Bacteria identified Cx Nom [...] Locations R1: This test was performed at: [facility], [address] [place] [address], [address] , , Normal [facility] Comment on above: Performed By: #### 2 [id number], [id number], 9492449 ####[place] [address] [place] [address] BMPon 12-08-2022 Anion gap [Moles/Vol] 9 mmol/L Normal 6-16 [facility] Comment on above: Performed By: #### 2 950766, 7676255, 1998036, 04653124, 9419859, 6667623 ####[facility] [address] [place] [address] Calcium [Mass/Vol] 8.9 mg/dL Normal 8.9-11.1 [facility] Comment on above: Performed By: #### 2 659462, 5022873, 7008329, 67484444, 4106427, 6876354 ####[facility] [address] [place] [address] Chloride [Moles/Vol] 104 mmol/L Normal 101-111 [facility] Comment on above: Performed By: #### 2 556976, 7170314, 8223336, 60294497, 4095068, 7567358 ####[facility] [address] [place] [address] CO2 [Moles/Vol] 26 mmol/L Normal 21-31 [facility] Comment on above: Performed By: #### 2 390261, 0244596, 9524458, 97403939, 3345635, 5148696 ####[facility] [address] [place] [address] Creatinine [Mass/Vol] 0.7 mg/dL Normal 0.5-1.3 [facility] Comment on above: Performed By: #### 2 879725, 2782447, 1267262, 32717781, 6187274, 7632282 ####[facility] [address] [place] [address] Glucose [Mass/Vol] 103 mg/dL Normal 55-199 [facility] Comment on above: Result Comment: If t his glucose result represents a fasting glucose, interpretation should refer to the following reference range: 55-99 mg/dL Performed By: #### 2 459524, 6952367, 3619451, 24080706, 4206324, 1212277 ####[facility] [address] [place] [address] Potassium [Moles/Vol] 3.3 mmol/L Low 3.5-5.3 [facility] Comment on above: Performed By: #### 2 697213, 0514947, 0265351, 71238440, 3965554, 4247885 ####[facility] [address] [place] [address] Sodium [Moles/Vol] 136 mmol/L Normal 135-145 [facility] Comment on above: Performed By: #### 2 877513, 0090350, 6217715, 82890040, 0539484, 9770431 ####[facility] [address] [place] [address] Urea nitrogen [Mass/Vol] 12 mg/dL Normal 5-21 [facility] Comment on above: Performed By: #### 2 318663, 9793492, 5300091, 56038351, 9082763, 6597592 ####[facility] [address] [place] [address] Urea nitrogen/Creatinine [Mass ratio] 17 No Units Normal 10-20 [facility] Comment on above: Performed By: #### 2 152420, 7284279, 1857830, 64077210, 0645578, 0121506 ####[facility] [address] [place] [address] Coding Summary.on 12-08-2022 Coding Summary. CD:[id number] Ww+PGhlYWQ+GN7VBNHbX 42lxKBwiG3pO1IKTRqKX ywgQVBQTElOSyIgbmFtZ T1qbMLcPSRk IC8+NK3iXSUaRvqwaMZp t2L2uXQ8Z59hxq3oREhp xRM2GSYrBaNaaikve0ve uFb3SWdgOfjcHkEz WBWouX62DQW7lG06Zp76 gBDopBCoy9jmkUg0ZaQm TUPzNTD4nUkrBDxyo7Ai TTYpI14eqYLvn9V3 IGNvbGxhcHNlOyBlbXB0 fG0cSBiujupqm9sjgshq Weh2ve64jCMuw3O8cLD7 V3ImglP3AJBvxJGf NfoqwKDQuQ0skwclj7nv lcucJaOyBDEeAVq2JVp8 HZZbyRmkOdJiQQ52JXK2 WTInnhFdO5CpCHVh rOmfXjC4v4W1Ue5CI9HP NqxbC2ZCOUZPJTrsgVS+ IX43mu05O9HlXsyyPov8 GAEtKSR8rDQ3vR0i ULZkGAqrq8K1wGC6H2Ow teAecs3gh9knUEYhDHlk R10quRUuo7P4KTBomYF6 GENfbXldQjZxaX87 Oyc+IMAdjFbek0GtBqcm d2hoo8fnkQl2GmacEGId ayWitFbaDKO2c0BvQw4j IBUyvXC0pYF9fF3h AeGkCmO8ABgbR169XpCb gWUeElqqY70xS8StbPR+ IBWrUgk5UWRoqXthHV0p G2RqPGCnxzztwGZs lNloOH9aLVOgvhruNADi hH4xMSEqU7h4QbAaBiR5 JUnjU2UmNLZzxpqyNv52 vX7rCcBqJqT3YXnl K0VipcA2XNCeaSEmFRgw WST6M06fg1T6VCIfOLSp XYM5sGB5tC0ljMzxclid bGVmdDsgdmVydGlj PXbrPZlqJ555VMQtaGqe PkNvZGluZyBEYXRlOiAg MDQvMDcvMjAyMzwvdGQ+ ANWmVGE3wWkeKDMq uEYaBPbuVy0bqOeexXfr HZ8sBDIyezxkFCCqhO0r NSKyyUQmoNqnTH4hWUVt qogza872TpZoWVO8 HOJexTKyL9NmaZ3tCiGm UVTvLTEiV1OppMKwMXrh W461FQioJgN1WWPmebTa A2GeJWOwmMovJwO2 v5Y1Oe6Ta2WcsdzjW6Qm mDGdBkDuQsmlWOw2E5Nw PjwvdHI+CL93AHMmDD52 DTg2AAK5nQfqKLix ALXzY8MehU6jDfMyDXOv ZGRkOyc+PHRhYmxlIHdp ZHRoPScxMDAlJyBzdHls QF6eCz8tSBKvCFHq fDnpkOGqYuTgh2ihBUHf FBjjVC3smOubJ7PvoNY1 WPRgy6t7Zt00A59tH2Mu dXA+UVAbfXK5nQE8 dQ2dWaYlNdD8NXgfS074 LiVndUQoCqubb0jqc6xm aVl6BmI5BIXxsmOfsBus SPM2l5MzBj93S05n IHdpZHRoPSIxNSUiIHZh xGvxsv6nmD8yKu3+PGNv yID2qRP4mI9fMeLvVeR9 ECjaI252YvHflTDw Vfsig0iaz6osfLa8KeZw WXSwigVzeIpwWGY5m5Tw Mf19B8InxYoex3CeQov3 kb10nFChb2Z3sDE6 U9BaIRAxgfgrvTAygQyp VM9aZCEzufsoCJAhfS5f VFLhS9v3KfWvZyJ9TAvg C0QbbzO2BDWbsIAo KKKumWAQjJ2nesady2ay aimnVmChRKWsOUc4RGa5 WKOnqBujOoGbCLY6RwY2 UJV1aLRsnL5rwChm fzoieE9gJia+IFU5mGJg bODIXN6tWewcjQD+PHRk GXB3xBnbTVsdEHLkdW5m NHMfH4k4ReFlVuE0 ZWsiC9JwmpZ9VSKicWLl HTOrjRTLcI8jdgjnu1iw musqFjEpZAOcWQh5JUb0 LWFsaWduOiBsZWZ0 TwX6DDT6oXOqzP2pzIil lqyvoR1gNeg+QmlydGgg GCO9CJi5V6CiBgr5MAOr wRmfKF1jzJAxXEwv Mk3jySjwrApxHG1pQOLe etbno471RfTyu7zuHCCt sPBfGOyyPRR7M29de8S3 DFHoMJYnNJH5hGG9 wP6ynMiaztcksHMqnFsu sfNwiNlePSuwNMtxQ403 ZWIldKajXxEaVFv0L9Ut Hfj6SGIiqGpsHN9l vUXbYMivJt1pxEfvaPjq HV9uXPNuxorce016BfKq y7auTWIjbAQvXPtkWUI7 W39vu9J3WVNbHSYk LSL2pHK2qI7rcJmgkeej bGVmdDsgdmVydGljYWwt XIrxG958XPDllGqeVyKt pVv3F3MuTsg0IKWd hLxxSH0beBMzBSxtAf4p wVksuYekUH3dTSCosdye y876FqLoz0xcRAGuhPBa VXssNGT7M33kr5F1 WVPnKYIfPJW3eLV2cD4n bGlnbjogbGVmdDsgdmVy kKbpYIfjAHlcJ619EJUl cDsnPlBhdGllbnQg LSpnNFi8O1HoYnauaRV+ EL18CJSfNG33bZAugXFp t4fisDl1JqOhPFKlMFY4 oLdyBBsvl4KjFMRb R56ijNCbu0T4MMXacMkf fOBbWjDkcIL8vD6fMYll anjss8urbmhfAxfei2dy yi87lA38X57ySZic ZHRoPSIzMCUiIHZhbGln ms0asO4sEh2+PGNvbCB3 zPD7jH6xBFKlDnB9PAwy B999NqRecJZjVqtj i9ejo4qurBm0ChS7QSQl pnTqgErkJJQ0c6JuAr38 N83jUPwnHJMiKGIfLTCx ETGklFkvgf1glJ8y Ii8+AGOjsKD3zOX0zV1e ElPxDxL6PEgmX526DfVu xZGsKrvzM13uN9CvcGT+ SVTzIrk3DUPogYnr AU0azHObCNewXw0wSJI2 PePnCdIrGZdaN8CjAQRj mndiozfegQW8YLEhYXOg pP76Rd1mzLemITZx pSEFlE3sekggl3xiumei KaNqPMEaZSt3KPb2ESTq pIilWzIeKBX6CaJ3PEM1 rHHgaZ6esTnrhkdz rQ7iG1OgUKQwquzrDi20 cR9lBzRnCcH2OBdwZev+ WklNTUVSTUFOLCBJVlkg TDwvdGQ+PHRkIHN0 bGggITwgJIIsyX7eYGUe J9w9LiVsRlA6WApaS9Vm UIHxposlPn96cC3wJpPa ZoP3HFyrN9XwfkU4 WKUbvYIiKHsiESI9F74p c8I1SFRxBIGiSYC7dXY5 iS8vjFpybxdqmEMjnRss dmVydGljYWwtYWxp B889LKPooNsxXoZ1MdPu VyIfEBI0O4FnThb7SJDh lPqfHN5vwLKrXFpaJi1m sQfywConJM8rKIKd fcvnXTUzaA4zBKGtsLUa rSebKV9eXZRfnaytd594 WqXvAKK1UQAdjZIkB2Rb pS6jZcZjPNMaYIRs N7IrpGLfYOxnO383FCfg EhC4VIZgcnUlI9ObIWEm xUbwElB0f2Z6Dv4aKlTP ZWFyczwvdGQ+PHRk NRX3rMecDUeiBPNsyS5s KFAkN3t5EmXqKoK2AMgv K9PlVXDnpqdpFq78lJ4e RtTdNzG0OLhaU9Yi doA2ROThgDBzBCntTND4 D42jz3E7YDPtRKKaMBP4 kBL0zE3tzLrhrbpihKOn dDsgdmVydGljYWwt JRitD731JGFlrFwpLvSq bWFsZTwvdGQ+PHRkIHN0 rOzdBAsfPRWrvZ8hGJYi D7p0TcPvLfG4SKcd T2TdTORaattfRk22hO8b ZuThFpR5XSdrO8AonvZ8 SPGaeIQoJKrgWKJ9F35p d6L4NSUaOXDfSLV4 gOV6eS8paJfqtiycqJJe dDsgdmVydGljYWwtYWxp V549DFItzFknSq21nXYn dLtwrkQ8L1EvOulx dHI+MR80CQUkKF21lXFf mZYsw8tleTf4BhLyRZPq MZH5dSsmEDjvj0UgHLAk Q78tlCAmo1P7CSVv xEcxiDZgYaGsrTC6tS6s PQvjwsyiw8ktpuydBbdo z1uhkn71jN26M57uWAiw ZHRoPSIzMCUiIHZh sZeptr4vcU9qXy3+PGNv xSH3gHZ4iC2eNpJfXmL3 YDeuD519OhIcgPCyWxcy k7gzr5siuCq9AnAo ASIxscWhkDihDWM7t8Gs Eo03L28vKJzyMMPyGEQh RYRpXPBcuRmhkm7dkI7b Ii8+BU7pv5bdst21 sS61xQX+JHHxFMN2mLak TAonRJOmaE7hVGkzEwC2 KKQqYuEnoP57lWTbNNtl Kc8bwCgtrGkyBR4z PSBftwwsa008DoXlk0mf JCQqtNGnVEjdKQF8T58g j6Y0YPVcXIQzDQH7hEF8 fI3hqUdypdcqdXVd dDsgdmVydGljYWwtYWxp N386SGWoyXxtYiKteELg N8dbmkPRHW5vZgpojOT+ ORLmTQQ6gLsjQKbx XXOpcY0bECDrR2l2VrOs HeH8JAzxV4VlwvB9TTZx tRXeBMGbeCMNbY0niyaz x7ktgxoyEtCoMXPp DCg0HHe0PLOxtXkqGsUc ISE0QoU7YCH8pCZjuV7a rDcbaczgqV3xEla+RklO OjwvdGQ+PHRkIHN0 xBvtWGrzUHDtlN5gETFk Z9x2RaTjLaB8GDeaA4Ue daW8ONWlsWGyPWTblFRU kP2dvohaa7ghedkc PgHaKYVoGMc7OKy7VUTu gUhdXmKiKXU5GuC5JGD8 gMDabF1xgCkalscgfN4u Oyc+TVJOOjwvdGQ+ HPJeXKC4xFaeTYkqYAJy bP3pGWZjU6d8TpLhHqU8 BIeqS5TuxlL9LPQdvQTl DZDlhHJAeS5bjsmt m8qajuvxEhJxSEFwGOd5 YQy7HBUiiJujZmLrYAZ6 DoJ9EFJ2sNBajS1wsWug grdbsQ8gOfa+UGF5 EVQ3GV87PE12O4CeBehp dGFibGU+PHRhYmxlIHdp ZHRoPScxMDAlJyBzdHls ML9hXs9vVDYbFFRj bGxhcHNl (more content not included)... Normal [facility] Discharge Instructionson Discharge Instructions [id number]# [id number] Normal [facility] ED Clinical Summaryon 2022 ED Clinical Summary [place] [id number] ED Clinical Summary Person Information Name: DARLINE FALCON [facility] Age: 22 Years : 2000 Sex: Female Language: Syrian PCP: Madhavi Bustamante MD Marital Status: Single Phone: [phone] Visit Id: Visit Reason: Nausea; Abdominal pain; [...] 12/07/2022 23:48:57 12/07/2022 23:48:57 12/07/2022 23:48:57 ADDRESS: [address] [place] [phone] [facility] DOC NOTES: MEDICAL INFORMATION: Prescriptions Given: New Medications [id number], [address] [place] [id number], [phone] dicyclomine (Bentyl 10 mg Cap) 1 Capsules By Mouth 4 times a day as needed Pain for 7 Days. Refills: 0. Medications to Continue Taking That Have Changed [id number], [address] [place], [place] [id number], [phone] START: ondansetron (Zofran 4 mg Tab) 1 [...] up: With: Address: When: Fernando Clark [address], [address] [place], [place] [phone] Business (1) In 3 days 12/10/2022 Comments: General surgeon in [place] With: Address: When: Willie LOZADA [address] [facility], [address], [address] [address] Business (1) In 3 days 12/10/2022 Comments: General surgeon at [place] With: Address: When: Please return to the ED with any new or worsening symptoms including worsening pain, fevers and chills, worsening nausea and inability to tolerate a liquid diet. With: Address: When: You may follow with the general surgeon recommended to by your primary care provider. You have also been provided with the information for the local [facility] general surgeons. DIAGNOSIS: Cholelithiases; Nausea Normal [facility] ED Note-Physicianon 12-09-19 23 ED Note-Physician Basic Information Time Seen: Paul JAMESLupis Uzma 12/07/2022 21:34 Chief Complaint Has had abdominal [...] # 28 cap(s), Refills(s) 0, Pharmacy: [id number], 167.6, cm, 12/07/22 21:32:00 EDT, [...] # 12 tab(s), Refills(s) 0, Pharmacy: [facility]/pharmacy #[id number], 167.6, cm, 12/07/22 21:32:00 EDT, [...] Clark In 3 days 12/10/2022 EDT [address], [address] [place] [phone] Business (1) Additional Instructions: General surgeon in [place] Willie LOZADA In 3 days 12/10/2022 EDT [address] (more content not included)... Normal [facility] Comment on above: Result Comment: Elec tronically [...] added (diluted fruit juice). ? Eat bland, vlrg-pf-ujymxi foods in small amounts as you are able. These foods include bananas, applesauce, rice, lean meats, toast, and crackers. ? Avoid fluids that contain a lot of sugar or caffeine, such as energy drinks, sports drinks, and soda. ? Avoid alcohol. ? Avoid spicy or fatty foods. General instructions ? Take vbbb-dhd-ztshvhb and prescription medicines only as told by your health care provider. ? Drink enough fluid to keep your urine pale yellow. ? Wash your hands often using soap and water. If soap and water are not available, use hand brake rider. ? Make sure that all people in [...] and drinking to prevent dehydration. ? Take kdbi-rvo-onbrgft and prescription medicines only as told by [...] 08/20/2006 Document Revised: 12/12/2019 Document Reviewed: 01/28/2019 [employer] Patient Education ? 2020 [employer] Cholelithiasis Cholelithiasis is a form of [...] usually yellow-green in (more content not included)... [facility] ED Patient Summaryon 023 ED Patient Summary [address] [address] Patient Discharge Instructions Person Information Name: DARLINE FALCON Age: 22 Years Arrival Date: 12/07/2022 21:25:41 Discharge Diagnosis: Cholelithiases; Nausea Primary Care Physician: Madhavi Bustamante MD Provider Information Primary Provider: Yash Medina DO Advanced Dealer Analyst:Lupis Miller PA-C The exam and treatment you received in the Emergency Department were for an urgent problem and are not intended as complete care. It is important that you follow up with a doctor, nurse practitioner, or physician?s hearing aid assistant for ongoing care. If your symptoms [...] Instructions: With: Address: When: Fernando Clark [address], [address] [place], [place] [phone] [facility] (1) In 3 days 12/10/2022 Comments: General surgeon in [place] With: Address: When: Willie LOZADA [address], [address], [address] [address] Business (1) In 3 days 12/10/2022 Comments: General surgeon at [place] With: Address: When: Please return to the ED with any new or worsening symptoms including worsening pain, fevers and chills, worsening nausea and inability to tolerate a liquid diet. With: Address: When: You may follow with the general surgeon recommended to by your primary care provider. You have also been provided with the information for the local [facility] general surgeons. In the event that this physician does not participate in your insurance network, please consult with your insurance company to find a nearby participating provider. Patient Education Materials: Nausea and Vomiting, Adult; Cholelithiasis A MESSAGE TO ALL PATIENTS REGARDING OPIOIDS PRESCRIPTION OPIOIDS: WHAT YOU NEED TO KNOW Prescription opioids can be used to help relieve yyefqksi-yn-tcbtdh pain and are often prescribed following a [...] Store prescription (more content not included)... Normal [facility] Hep Func Panelon 12-08-2022 Albumin [Mass/Vol] 4.4 g/dL Normal 3.3-5.0 [facility] Comment on above: Performed By: #### 2 400280, 7293492, 0561164, 03060131, 8316219, 8930254 ####[facility] [address] [place] [address] Albumin/Globulin (S) [Mass conc ratio] 1.3 Normal 1.1-2.2 [facility] Comment on above: Performed By: #### 2 059029, 5528580, 7213453, 79325473, 4088848, 5866002 ####[facility] [address] [place] [address] ALP [Catalytic activity/Vol] 65 Int._Unit/L Normal 21-98 [facility] Comment on above: Performed By: #### 2 386819, 0985739, 9988509, 79140223, 0766806, 5419185 ####[facility] [address] [place] [address] ALT No additional P-5'-P [Catalytic activity/Vol] 20 Int._Unit/L Normal 6-46 [facility] Comment on above: Performed By: #### 2 100445, 4363392, 4715371, 41917914, 0025982, 9416619 ####[facility] [address] [address] AST [Catalytic activity/Vol] 19 Int._Unit/L Normal 5-43 [facility] Comment on above: Performed By: #### 2 248354, 0434192, 7757197, 27185102, 0301716, 5814488 ####[facility] [address] [place] [address] Bilirubin [Mass/Vol] 1.7 mg/dL High 0.0-1.1 [facility] Comment on above: Performed By: #### 2 503346, 0191369, 5627341, 89126453, 6949349, 5791825 ####[facility] [address] [place] [address] Bilirubin.direct [Mass/Vol] 0.2 mg/dL Normal 0.1-0.4 [facility] Comment on above: Performed By: #### 2 760155, 7457399, 6270649, 81111006, 3292927, 1400971 ####[facility] [address] [place] [address] Bilirubin.indirect [Mass or moles/Vol] 1.5 mg/dL High 0.1-0.9 [facility] Comment on above: Performed By: #### 2 445510, 4929514, 1462557, 05933249, 1577109, 7309147 ####[facility] [address] [place] [address] Globulin (S) [Mass/Vol] 3.3 g/dL Normal 1.4-4.0 [facility] Comment on above: Performed By: #### 2 345844, 5993254, 6134368, 36251983, 8048599, 3084607 ####[facility] [address] [place] [address] Protein [Mass/Vol] 7.7 g/dL Normal 6.0-7.8 [facility] Comment on above: Performed By: #### 2 210703, 1936423, 1215066, 26233253, 4038531, 3513616 ####[facility] [address] [place] [address] Lipase Levelon 12-08-2022 Lipase [Catalytic activity/Vol] 39 U/L Normal 13-58 [facility] Comment on above: Performed By: #### 2 643369, 1507845, 9460112, 11159603, 6211766, 9155804 ####[facility] [address] [place] [address] U BetaHcg Qualon 12-08-2022 HCG.beta subunit (U) [Moles/Vol] Negative Normal [facility] Comment on above: Performed By: #### 2 4074670, 54351538, 4410346 ####[facility] [address] [place] [address] UA With Cult Reflexon 2022 Bacteria LM Ql (Urine sed) 1+ /HPF Abnormal Trace [facility] Comment on above: Performed By: #### 2 1973218, 88222309, 4265462 ####[facility] [address] [place] [address] Bilirubin Ql (U) Negative Normal Negative [facility] Comment on above: Performed By: #### 2 2823839, 24832163, 5952468 ####[facility] [address] [place] [address] Clarity (U) CLEAR Normal Clear [facility] Comment on above: Performed By: #### 2 [id number], [id number], 1981743 ####[facility] [address] [place] [address] Color (U) YELLOW Normal Yellow [facility] Comment on above: Performed By: #### 2 0655948, 20788948, 3515748 ####[facility] [address] [place] [address] Epithelial cells.squamous LM.HPF (Urine sed) [#/Area] 3-4 Normal 0-2 [facility] Comment on above: Performed By: #### 2 8559344, 55151137, 6462776 ####[facility] [address] [place] [address] Glucose Test strip (U) [Mass/Vol] Negative Normal Negative [facility] Comment on above: Performed By: #### 2 3973104, 36568489, 5168287 ####[facility] [address] [place] [address] Hemoglobin Ql (U) TRACE Abnormal Negative [facility] Comment on above: Performed By: #### 2 4643545, 97616444, 7331050 ####[facility] [address] [place] [address] Ketones (U) [Mass/Vol] Negative Normal Negative [facility] Comment on above: Performed By: #### 2 7002501, 27503429, 6742942 ####[facility] [address] [place] [address] [place].plasma/Lithiu m.RBC (Bld) [Mass ratio] 0-3 Normal 0-3 [facility] Comment on above: Performed By: #### 2 5157167, 10879055, 7831968 ####[place] [address] Nitrite Ql (U) Negative Normal Negative [facility] Comment on above: Performed By: #### 2 7531410, 81416102, 2832178 ####[place] [address] pH (U) 6.0 [pH] Invalid Interpretation Code 5.0-9.0 [facility] Comment on above: Performed By: #### 2 1261377, 98913549, 0650240 ####[place] [address] Protein (U) [Mass/Vol] Negative Normal Negative [facility] Comment on above: Performed By: #### 2 3395727, 60164888, 7674562 ####[place] [address] Specific gravity (U) [Rel density] 1.020 Invalid Interpretation Code 1.005-1.030 [facility] Comment on above: Performed By: #### 2 5084107, 16784663, 0306548 ####[place] [address] Type of Urine collection method Clean Catch Normal [facility] Comment on above: Performed By: #### 2 3293159, 16446171, 5682446 ####[place] [address] Urobilinogen Qn (U) 0.2 {Tuan'U}/dL Normal 0.0-1.0 [facility] Comment on above: Performed By: #### 2 6742805, 06712730, 9697891 ####[facility] [address] [place] [address] WBC Auto Ql (U) 2+ Abnormal Negative [facility] Comment on above: Performed By: #### 2 5415450, 10603055, 4481291 ####[facility] [address] [place] [address] WBC LM.HPF (Urine sed) [#/Area] 6-15 Abnormal 0-5 [facility] Comment on above: Performed By: #### 2 1041236, 28976107, 0882595 ####[facility] [address] [place] [address] eGFRon 12-08-2022 GFR/1.73 sq M.predicted among blacks MDRD (S/P/Bld) [Vol rate/Area] mL/min/{1.73_m2} Normal >=59 [facility] Comment on above: Order Comment: Order added by Discern Expert. Result Comment: eGFR is race adjusted. AA=. Performed By: #### 2 220124, 6325052, 2738168, 23729418, 2312273, 5647798 ####[facility] [address] [place] [address] GFR/1.73 sq M.predicted among non-blacks MDRD (S/P/Bld) [Vol rate/Area] mL/min/{1.73_m2} Normal >=59 [facility] Comment on above: Order Comment: Order added by Discern Expert. Result Comment: [place]o [place] asaf kidney disease could be indicated at eGFR's of less than 60 mL/min/1.73m2. Kidney failure is indicated at less than 15 mL/min/1.73m2. Performed By: #### 2 730367, 6617452, 9956821, 17006158, 7550039, 0055757 ####[place] [address] [place] [address] Auto Diffon 12-07-2022 Basophils/100 WBC (Bld) 0.4 % Normal 0.0-2.0 [facility] Comment on above: Order Comment: Order Added by Discern Expert. Performed By: #### 2 440577, 8840299, 7758762, 85416457, 6614098, 7073050 ####[place] [address] [place] [address] Basophils/Leukocytes Auto (Bld) [Pure # fraction] 0.0 E9/L Normal 0.0-0.2 [facility] Comment on above: Order Comment: Order Added by Discern Expert. Performed By: #### 2 551967, 4602873, 5632617, 36020888, 7704990, 5211645 ####[address] [address] Eosinophils/100 WBC (Bld) 3.1 % Normal 0.0-8.0 [facility] Comment on above: Order Comment: Order Added by Discern Expert. Performed By: #### 2 720491, 2668873, 4523210, 23545502, 4893813, 5745452 ####[address] [address] Eosinophils/Leukocyte s Auto (Bld) [Pure # fraction] 0.3 E9/L Normal 0.0-0.5 [facility] Comment on above: Order Comment: Order Added by Discern Expert. Performed By: #### 2 076063, 0632382, 1768771, 81784227, 6982204, 1790546 ####[place] [address] [place] [address] Lymphocytes/100 WBC (Bld) 17.3 % Normal 14.0-50.0 [facility] Comment on above: Order Comment: Order Added by Discern Expert. Performed By: #### 2 835027, 9992898, 0093872, 16241506, 0380202, 7310146 ####[address] [address] Lymphocytes/Leukocyte s Auto (Bld) [Pure # fraction] 1.8 E9/L Normal 1.0-4.0 [facility] Comment on above: Order Comment: Order Added by Discern Expert. Performed By: #### 2 751028, 1472119, 8664120, 86354355, 6549266, 6313173 ####[place] [address] [place] [address] Monocytes/100 WBC (Bld) 5.8 % Normal 4.0-14.0 [facility] Comment on above: Order Comment: Order Added by Discern Expert. Performed By: #### 2 023934, 0392187, 2881989, 84598991, 2579732, 1761922 ####[address] [address] Monocytes/Leukocytes Auto (Bld) [Pure # fraction] 0.6 E9/L Normal 0.2-1.0 [facility] Comment on above: Order Comment: Order Added by Discern Expert. Performed By: #### 2 577941, 6996874, 9606937, 21534095, 0974272, 9195259 ####[address] [address] Neutrophils/100 WBC (Bld) 73.4 % Normal 36.0-75.0 [facility] Comment on above: Order Comment: Order Added by Discern Expert. Performed By: #### 2 613898, 3018450, 2793665, 95717933, 4177674, 7235344 ####[address] [place] [address] Neutrophils/Leukocyte s Auto (Bld) [Pure # fraction] 7.9 E9/L High 2.0-7.5 [facility] Comment on above: Order Comment: Order Added by Discern Expert. Performed By: #### 2 476628, 7609543, 9013558, 85906138, 9963824, 2875105 ####[address] [address] CBC w/ Auto Diffon 3 Erythrocyte distribution width (RBC) [Ratio] 13.9 % Normal 10.9-14.2 [facility] Comment on above: Performed By: #### 2 860926, 0115465, 2783771, 80742697, 7116334, 7705123 ####[address] [address] Hematocrit (Bld) [Volume fraction] 44.1 % Normal 34.0-46.0 [facility] Comment on above: Performed By: #### 2 847471, 6749970, 9374800, 66741885, 1794675, 0757730 ####[address] [address] Hemoglobin (Bld) [Mass/Vol] 15.3 g/dL Normal 12.0-16.0 [facility] Comment on above: Performed By: #### 2 823236, 4207352, 0660993, 98022408, 8676492, 7239769 ####[address] [address] MCH (RBC) [Entitic mass] 30.0 pg Normal 27.0-34.0 [facility] Comment on above: Performed By: #### 2 902407, 0192826, 7641908, 07835961, 3439411, 7686881 ####[address] [address] MCHC (RBC) [Mass/Vol] 34.8 g/dL Normal 31.4-36.0 [facility] Comment on above: Performed By: #### 2 009472, 9779423, 6182435, 67392624, 5029688, 0265249 ####[address] [address] MCV (RBC) [Entitic vol] 86.4 fL Normal 80.0-100.0 [facility] Comment on above: Performed By: #### 2 804762, 7886406, 9191534, 10319921, 6245790, 9842729 ####[facility] [address] [place] [address] Platelet mean volume (Bld) [Entitic vol] 8.7 fL Normal 6.4-10.8 [facility] Comment on above: Performed By: #### 2 758266, 3394883, 1738273, 72405399, 7977884, 1106561 ####[facility] [address] [place] [address] Platelets (Bld) [#/Vol] 221.0 E9/L Normal 150.0-500.0 [facility] Comment on above: Performed By: #### 2 549328, 1445699, 3691708, 31319776, 2404989, 9448390 ####[address] [place] [address] RBC (Bld) [#/Vol] 5.1 E12/L Normal 4.3-5.9 [facility] Comment on above: Performed By: #### 2 373637, 4698067, 9515964, 00871749, 6252473, 2689816 ####[address] [place] [address] WBC corrected for nucl RBC Auto (Bld) [#/Vol] 10.7 E9/L Normal 4.0-11.0 [facility] Comment on above: Performed By: #### 2 456962, 0387967, 2866646, 87709948, 0684376, 7611336 ####[facility] [address] [place] [address] CHEMISTRYOrdered By: SYSTEM SYSTEM on 12-07-2022 Albumin [...] 26 mmol/L Normal 21 - 31 mmol/L [facility] Creatinine [Mass/Vol] 0.7 mg/dL Normal 0.5 - 1.3 mg/dL [facility] GFR/1.73 sq M.predicted among blacks MDRD (S/P/Bld) [Vol rate/Area] mL/min/1.73 m2 Normal >=59mL/min/1. 73 m2 [facility] [place] S GFR/1.73 sq M.predicted among non-blacks MDRD (S/P/Bld) [Vol rate/Area] mL/min/1.73 m2 Normal >=59mL/min/1. 73 m2 [facility] [place] Chem S Globulin (S) [Mass/Vol] 3.3 g/dL Normal 1.4 - 4.0 gm/dL [facility] Glucose [Mass/Vol] 103 mg/dL Normal 55 - 199 mg/dL [facility] Lipase [Catalytic activity/Vol] 39 U/L Normal 13 - 58 unit/L [facility] Potassium [Moles/Vol] 3.3 mmol/L Low 3.5 - 5.3 mmol/L [facility] Protein [Mass/Vol] 7.7 g/dL Normal 6.0 - 7.8 gm/dL [facility]isol Sodium [Moles/Vol] 136 mmol/L Normal 135 - 145 mmol/L [facility] Urea nitrogen [Mass/Vol] 12 mg/dL Normal 5 - 21 mg/dL [facility] Remisol Urea nitrogen/Creatinine [Mass ratio] 17 mg/mg Normal 10 - 20 [facility] Remisol Consent for Treatmenton Consent for Treatment [id number] #1.00CD:127 Normal [facility] HEMATOLOGYOrdered By: SYSTEM SYSTEM on 12-07-2022 Basophils/100 [...] PM) Normal Negative [facility] UA Auto SS [place].plasma/Lithiu m.RBC (Bld) [Mass ratio] 0-3 /HPF Normal [...] PM) Invalid Interpretation Code 1.005 - 1.030 [facility] UA Auto SS UA Spec Desc Clean Catch (12/07/22 9:55 PM) Normal [facility]A Auto SS Urobilinogen Qn (U) 0.8202606 {Tuan'U}/dL Normal 0.0 - 1.0 EU/dL [facility] UA Auto SS WBC Auto Ql (U) 2+ *ABN* (12/07/22 9:55 PM) Invalid Interpretation Code Negative [facility] UA Auto SS WBC LM.HPF (Urine sed) [#/Area] 6-15 /HPF Invalid Interpretation Code 0-5/HPF [facility] UA Auto SS ANGEL w/Reflex if POSon 2022 Nuclear Ab Ql (S) Negative Invalid Interpretation Code Negative [facility] Comment on above: Result Comment: Perf ormed at: [facility] [address] [id number] PhD Octaviano Chen Performed By: #### 1 9887282, 4214650, 11199999, 98909390, 12274177, 6319249, 4704384, 6202421 ####[facility] [address] [place] [address] Auto Diffon 12-04-2022 Basophils/100 WBC (Bld) 0.6 % Normal 0.0-2.0 [facility] Comment on above: Order Comment: Order Added by Discern Expert. Performed By: #### 1 0868874, 7267529, 95516569, 18355052, 78608953, 3221278, 0599774, 4782720 ####[address] [place] [address] Basophils/Leukocytes Auto (Bld) [Pure # fraction] 0.0 E9/L Normal 0.0-0.2 [facility] Comment on above: Order Comment: Order Added by Discern Expert. Performed By: #### 1 3302851, 5001197, 68458387, 96170468, 08404287, 6101113, 5685750, 3987506 ####[address] [place] [address] Eosinophils/100 WBC (Bld) 5.5 % Normal 0.0-8.0 [facility] Comment on above: Order Comment: Order Added by Discern Expert. Performed By: #### 1 6331575, 6008326, 32349236, 43663142, 43117615, 0504422, 0203079, 9017664 ####[address] [address] Eosinophils/Leukocyte s Auto (Bld) [Pure # fraction] 0.4 E9/L Normal 0.0-0.5 [facility] Comment on above: Order Comment: Order Added by Discern Expert. Performed By: #### 1 3740596, 0898094, 01592484, 03269752, 15104498, 6807414, 4270522, 2092833 ####[address] [place] [address] Lymphocytes/100 WBC (Bld) 32.2 % Normal 14.0-50.0 [facility] Comment on above: Order Comment: Order Added by Discern Expert. Performed By: #### 1 7806489, 0447945, 30508434, 39191099, 82441300, 2402579, 3989837, 3726155 ####[address] [place] [address] Lymphocytes/Leukocyte s Auto (Bld) [Pure # fraction] 2.5 E9/L Normal 1.0-4.0 [facility] Comment on above: Order Comment: Order Added by Chanell Expert. Performed By: #### 1 4676426, 7566973, 67446100, 25264151, 16137769, 7177208, 3886329, 0227195 ####[facility] [address] [place] [address] Monocytes/100 WBC (Bld) 6.7 % Normal 4.0-14.0 [facility] Comment on above: Order Comment: Order Added by Discern Expert. Performed By: #### 1 6367519, 5630954, 27804516, 87469699, 52540740, 3782436, 7850309, 0653058 ####[address] [place] [address] Monocytes/Leukocytes Auto (Bld) [Pure # fraction] 0.5 E9/L Normal 0.2-1.0 [facility] Comment on above: Order Comment: Order Added by Chanell Expert. Performed By: #### 1 4824439, 7009530, 76311041, 30680069, 37759411, 5432029, 4029673, 1948587 ####[address] [address] Neutrophils/100 WBC (Bld) 55.0 % Normal 36.0-75.0 [facility] Comment on above: Order Comment: Order Added by Chanell Expert. Performed By: #### 1 3080557, 5883205, 45835691, 91199418, 27436402, 9179389, 2167079, 4402661 ####[address] [place] [address] Neutrophils/Leukocyte s Auto (Bld) [Pure # fraction] 4.2 E9/L Normal 2.0-7.5 [facility] Comment on above: Order Comment: Order Added by Chanell Expert. Performed By: #### 1 3927268, 6419454, 07936684, 62992532, 23079122, 5286988, 5863802, 4519787 ####[facility] [address] CBC w/ Auto Diffon 3 Erythrocyte distribution width (RBC) [Ratio] 13.9 % Normal 10.9-14.2 [facility] Comment on above: Performed By: #### 1 2950430, 8521022, 56003224, 75078098, 96274185, 4190445, 3603270, 1480622 ####[facility] [address] Hematocrit (Bld) [Volume fraction] 41.1 % Normal 34.0-46.0 [facility] Comment on above: Performed By: #### 1 9660482, 1502172, 92966014, 23248615, 70125132, 1577997, 0028375, 7590627 ####[address] [place] [address] Hemoglobin (Bld) [Mass/Vol] 14.2 g/dL Normal 12.0-16.0 [facility] Comment on above: Performed By: #### 1 3315521, 4067803, 58197416, 47813238, 59656503, 6032765, 8200772, 4257745 ####[address] [place] [address] MCH (RBC) [Entitic mass] 30.1 pg Normal 27.0-34.0 [facility] Comment on above: Performed By: #### 1 4165717, 6551314, 60143547, 63568401, 95727326, 6013389, 5234643, 8827361 ####[facility] [address] MCHC (RBC) [Mass/Vol] 34.6 g/dL Normal 31.4-36.0 [facility] Comment on above: Performed By: #### 1 3437762, 1785216, 37434192, 08055452, 67480111, 7287762, 6655798, 7329467 ####[address] MCV (RBC) [Entitic vol] 87.1 fL Normal 80.0-100.0 [facility] Comment on above: Performed By: #### 1 3539779, 6240763, 79885791, 96250088, 95626874, 3457164, 6259965, 4590140 ####[facility] [address] [place] [address] Platelet mean volume (Bld) [Entitic vol] 8.4 fL Normal 6.4-10.8 [facility] Comment on above: Performed By: #### 1 9887720, 6569336, 53675706, 36201635, 54986564, 5098953, 2613025, 2792742 ####[address] [place] [address] Platelets (Bld) [#/Vol] 220.0 E9/L Normal 150.0-500.0 [facility] Comment on above: Performed By: #### 1 7067020, 7514019, 61141905, 60391140, 46521574, 1588145, 4981689, 0247514 ####[address] [place] [address] RBC (Bld) [#/Vol] 4.7 E12/L Normal 4.3-5.9 [facility] Comment on above: Performed By: #### 1 4700009, 2053589, 47449019, 16158565, 87558450, 6061870, 2019843, 9404822 ####[address] [place] [address] WBC corrected for nucl RBC Auto (Bld) [#/Vol] 7.7 E9/L Normal 4.0-11.0 [facility] Comment on above: Performed By: #### 1 4611750, 2560864, 35959576, 71648599, 48730503, 6724031, 8843542, 3061221 ####[facility] [address] [place] [address] CHEMISTRYOrdered By: SYSTEM SYSTEM on 12-04-2022 Albumin [...] 1.11 m[IU]/L Normal 0.34 - 5.60 mcIU/mL [facility] Urea nitrogen [Mass/Vol] 10 mg/dL Normal 5 - 21 mg/dL [facility] Urea nitrogen/Creatinine [Mass ratio] 14 mg/mg Normal 10 - 20 [facility] CMPon 12-04-2022 Albumin [Mass/Vol] 4.1 g/dL Normal 3.3-5.0 [facility] Comment on above: Performed By: #### 1 9855789, 9868197, 54026485, 03141217, 55914098, 4161060, 5319457, 8020533 ####[facility] [address] [place] [address] Albumin/Globulin (S) [Mass conc ratio] 1.4 Normal 1.1-2.2 [facility] Comment on above: Performed By: #### 1 4029709, 5407366, 72556210, 85229298, 65257572, 1021971, 9443401, 9262158 ####[facility] [address] [place] [address] ALP [Catalytic activity/Vol] 60 Int._Unit/L Normal 21-98 [facility] Comment on above: Performed By: #### 1 9869705, 3152490, 91899920, 07266113, 72290688, 4886239, 0616288, 4313854 ####[facility] [address] [place] [address] ALT No additional P-5'-P [Catalytic activity/Vol] 21 Int._Unit/L Normal 6-46 [facility] Comment on above: Performed By: #### 1 3408935, 2190321, 40413454, 68430836, 37369955, 8035726, 7438444, 9094484 ####[facility] [address] [place] [address] Anion gap [Moles/Vol] 7 mmol/L Normal 6-16 [facility] Comment on above: Performed By: #### 1 2154658, 1796872, 74403727, 02053172, 64947609, 0841001, 7159863, 8886112 ####[facility] [address] [place] [address] AST [Catalytic activity/Vol] 17 Int._Unit/L Normal 5-43 [facility] Comment on above: Performed By: #### 1 6599213, 1228794, 91522018, 26975691, 77503078, 0383120, 7640022, 5306616 ####[facility] [address] [place] [address] Bilirubin [Mass/Vol] 1.3 mg/dL High 0.0-1.1 [facility] Comment on above: Performed By: #### 1 7657938, 1611532, 99800347, 52687820, 59322247, 5570121, 5113234, 6304121 ####[facility] [address] [place] [address] Calcium [Mass/Vol] 8.8 mg/dL Low 8.9-11.1 [facility] Comment on above: Performed By: #### 1 6934227, 6736175, 32991400, 19107292, 71603878, 4405904, 9165169, 5589603 ####[facility] [address] [place] [address] Chloride [Moles/Vol] 107 mmol/L Normal 101-111 [facility] Comment on above: Performed By: #### 1 8841585, 4588858, 78331812, 57721847, 63496296, 2856745, 0293958, 5667544 ####[facility] [address] [place] [address] CO2 [Moles/Vol] 27 mmol/L Normal 21-31 [facility] Comment on above: Performed By: #### 1 4197853, 3735109, 24998847, 44104659, 15134374, 9067859, 6807079, 2295190 ####[facility] [address] [place] [address] Creatinine [Mass/Vol] 0.7 mg/dL Normal 0.5-1.3 [facility] Comment on above: Performed By: #### 1 3660727, 8438872, 01428146, 73260170, 91720433, 5330022, 3930183, 6072764 ####[facility] [address] [place] [address] Globulin (S) [Mass/Vol] 3.0 g/dL Normal 1.4-4.0 [facility] Comment on above: Performed By: #### 1 5228407, 0358351, 42946281, 30515707, 46655296, 0325740, 5286970, 2053938 ####[facility] [address] [place] [address] Glucose [Mass/Vol] 86 mg/dL Normal 55-199 [facility] Comment on above: Result Comment: If t his glucose result represents a fasting glucose, interpretation should refer to the following reference range: 55-99 mg/dL Performed By: #### 1 9383514, 6262974, 61335362, 04019327, 63730260, 2656010, 7239849, 7727873 ####[facility] [address] [place] [address] Potassium [Moles/Vol] 3.7 mmol/L Normal 3.5-5.3 [facility] Comment on above: Performed By: #### 1 2108250, 0674706, 99187698, 27138869, 83393797, 1691390, 6157889, 0612771 ####[facility] [address] [place] [address] Protein [Mass/Vol] 7.1 g/dL Normal 6.0-7.8 [facility] Comment on above: Performed By: #### 1 4743843, 2163748, 14853162, 38898636, 88661998, 4782015, 8700687, 3007518 ####[facility] [address] [place] [address] Sodium [Moles/Vol] 137 mmol/L Normal 135-145 [facility] Comment on above: Performed By: #### 1 7682704, 4189506, 37184895, 26810207, 37186164, 1643141, 4920976, 9434987 ####[facility] [address] [place] [address] Urea nitrogen [Mass/Vol] 10 mg/dL Normal 5-21 [facility] Comment on above: Performed By: #### 1 4999854, 7405135, 72816043, 10907812, 16509987, 3704855, 6481762, 5740450 ####[facility] [address] [place] [address] Urea nitrogen/Creatinine [Mass ratio] 14 No Units Normal 10-20 [facility] Comment on above: Performed By: #### 1 4689795, 4230819, 08543464, 85520503, 69494816, 8947880, 5390033, 8371460 ####[facility] [address] [place] [address] CRPon 12-04-2022 CRP [Mass/Vol] 0.6 mg/dL Normal <=1.9 [facility] Comment on above: Performed By: #### 1 6947537, 4122369, 12765768, 88410580, 66940696, 0140473, 8708199, 3910021 ####[facility] [address] [place] [address] Consent for Treatmenton Consent for Treatment [id number] #1.00CD:127 Normal [facility] HEMATOLOGYOrdered By: SYSTEM SYSTEM on 12-04-2022 Basophils/100 [...] 8.4 fL Normal 6.4 - 10.8 fL [facility] [place] HemeAutoSS Platelets (Bld) [#/Vol] 220.0 E9/L Normal 150.0 - 500.0 E9/L [facility] [place] HemeAutoSS RBC (Bld) [#/Vol] 4.7 E12/L Normal 4.3 - 5.9 E12/L [facility] [place] HemeAutoSS Sed Rate Automated 10 mm/h Normal 0 - 34 mm/hr [facility] [place] HemeAutoSS WBC corrected for nucl RBC Auto (Bld) [#/Vol] 7.7 E9/L Normal 4.0 - 11.0 E9/L [facility] [place] HemeAutoSS Physician Orderon 12-04-2022 Physician Order [id number]#1.00CD:127 Normal [facility] Physician Order [id number]# 1.00CD:127 Normal [facility] Sed Rate Automatedon 023 Sed Rate Automated 10 mm/hr Normal 0-34 [facility] Comment on above: Performed By: #### 1 9107572, 8033177, 79546958, 70676976, 93116602, 8001035, 3764511, 3795399 ####[facility] [address] [place] [address] TSH With T4fr Reflexon 12-04 TSH Qn 1.11 m[IU]/L Normal 0.34-5.60 [facility] Comment on above: Performed By: #### 1 2183115, 8224829, 72194124, 44140843, 98004452, 4747972, 0610369, 5121031 ####[facility] [address] [place] [address] US Abdomen, Limitedon 2022 US Abdomen, Limited [...] MD Transcribed by: LITA Technologist: BREONNA Jason [facility] eGFRon 12-04-2022 GFR/1.73 sq M.predicted among blacks MDRD (S/P/Bld) [Vol rate/Area] mL/min/{1.73_m2} Normal >=59 [facility] Comment on above: Order Comment: Order added by Discern Expert. Result Comment: eGFR is race adjusted. AA=. Performed By: #### 1 8530035, 2287948, 64510124, 29645186, 31441503, 5472879, 3953317, 1070234 ####[facility] [address] [place] [address] GFR/1.73 sq M.predicted among non-blacks MDRD (S/P/Bld) [Vol rate/Area] mL/min/{1.73_m2} Normal >=59 [facility] Comment on above: Order Comment: Order added by Discern Expert. Result Comment: [facility] [place] asaf kidney disease could be indicated at eGFR's of less than 60 mL/min/1.73m2. Kidney failure is indicated at less than 15 mL/min/1.73m2. Performed By: #### 1 6142202, 2069512, 14505609, 83301682, 09471497, 4470235, 2834274, 7172088 ####[facility] [address] [place] [address] Physician Orderon 11-29-2022 Physician Order [id number] #1.00CD:127 Normal [facility] PAP ACOG PANEL 2: 21 to 29on 10-31-2022 . . Normal [facility] Comment on above: Performed By: #### R PRQ #### [facility] [address] [place] [address] Dr. Jerrod Bettencourt Age Gdln ACOG Testing - Normal [facility] Comment on above: Performed By: #### R PRQ #### [facility] [address] [place] [address] Dr. Jerrod Bettencourt DIAGNOSIS: Comment Abnormal [facility] Comment on above: Result Comment: EPIT HELIAL CELL ABNORMALITY. LOW GRADE SQUAMOUS INTRAEPITHELIAL LESION (LSIL). Performed By: #### R PRQ #### [facility] [address] [place] [address] Dr. Jerrod Bettencourt Electronically signed by: Comment Normal [facility] Comment on above: Result Comment: Rachna Navarrete MD, Pathologist Performed By: #### R PRQ #### [facility] [address] [place] [address] Dr. Jerrod Bettencourt Methodology: Comment [facility] Comment on above: Result Comment: This liquid based ThinPrep(R) pap test was screened with the use of an image guided system. Performed By: #### R PRQ #### [facility] [address] [place] [address] Dr. Jerrod Bettencourt Note: Comment Normal [facility] Comment on above: Result Comment: The Pap smear is a screening test designed to aid in the detection of premalignant and malignant conditions of the uterine cervix. It is not a diagnostic procedure and should not be used as the sole means of detecting cervical cancer. Both false-positive and false-negative reports do occur. . Performed By: #### R PRQ #### [facility] [address] [place] [address] Dr. Jerrod Bettencourt Pathologist Provided ICD10 Comment Normal [facility] Comment on above: Result Comment: [id number] Performed By: #### R PRQ #### [facility] [address] [place] [address] Dr. Jerrod Bettencourt Performed by: Comment Normal [facility] Comment on above: Result Comment: Janet Abreu, Slate Cutter Operator (ASCP) Performed By: #### R PRQ #### [facility] [address] [place] [address] Dr. Jerrod Bettencourt Recommendation: Comment Abnormal [facility] Comment on above: Result Comment: Sugg est follow up as clinically appropriate. Performed By: #### R PRQ #### [facility] [address] [place] [address] Dr. Jerrod Bettencourt Reflex Criteria: Comment Normal [facility] Comment on above: Result Comment: The HPV DNA reflex criteria were not met with this specimen result therefore, no HPV testing was performed. . Performed By: #### R PRQ #### [facility] [address] [place] [address] Dr. Jerrod Bettencourt Specimen adequacy: Comment Normal The [facility] Comment on above: Result Comment: Sati sfactory for evaluation. Endocervical and/or squamous metaplastic cells (endocervical component) are present. Performed By: #### R PRQ #### [facility] [address] [place] [address] Dr. Jerrod Bettencourt CBC AUTO DIFFon 06-04-2022 BASO # 0.1 103/ul Normal 0.0-0.[address] [facility] Comment on above: Performed By: #### R PRQ #### [facility] [address] [place] [address] Dr. Jerrod Bettencourt Basophils/100 WBC (Bld) 0.3 % Normal 0.2-2.[address] [facility] Comment on above: Performed By: #### R PRQ #### [facility] [address] [place] [address] Dr. Jerrod Bettencourt EO # 0.1 103/ul Normal 0.0-0.[address] [facility] Comment on above: Performed By: #### R PRQ #### [facility] [address] [place] [address] Dr. Jerrod Bettencourt Eosinophils/100 WBC (Bld) 0.8 % Critically low 0.9-7.[address] [facility] Comment on above: Performed By: #### R PRQ #### [facility] [address] [place] [address] Dr. Jerrod Bettencourt Erythrocyte distribution width (RBC) [Ratio] 13.2 % Normal 11.0-15.[address] [facility] Comment on above: Performed By: #### R PRQ #### [facility] [address] [place] [address] Dr. Jerrod Bettencourt Hematocrit (Bld) [Volume fraction] 27.1 % Critically low 36.0-48.[address] [facility] Comment on above: Performed By: #### R PRQ #### [facility] [address] [place] [address] Dr. Jerrod Bettencourt Hemoglobin (Bld) [Mass/Vol] 9.5 g/dL Critically low 12.0-16.[address] [facility] Comment on above: Performed By: #### R PRQ #### [facility] [address] [place] [address] Dr. Jerrod Bettencourt IG # 0.08 10e3/ul Critically high 0.00-0.03 [facility] Comment on above: Performed By: #### R PRQ #### [facility] [address] [place] [address] Dr. Jerrod Bettencourt IG % 0.6 % Critically high 0.0-0.5 [facility] Comment on above: Performed By: #### R PRQ #### [facility] [address] [place] [address] Dr. Jerrdo Bettencourt LYMPH # 2.0 103/ul Normal 1.2-3.8 [facility] Comment on above: Performed By: #### R PRQ #### [facility] [address] [place] [address] Dr. Jerrod Bettencourt Lymphocytes/100 WBC (Bld) 14.0 % Critically low 20.5-60.[address] [facility] Comment on above: Performed By: #### R PRQ #### [facility] [address] [place], [place] [id number] Dr. Jerrod Bettencourt MANUAL DIFF REQ NO Normal [facility] Comment on above: Performed By: #### R PRQ #### [facility] [address] [place] [address] Dr. Jerrod Bettencourt MCH (RBC) [Entitic mass] 32.9 pg Normal 26.7-34.0 [facility] Comment on above: Performed By: #### R PRQ #### [facility] [address] [place] [address] Dr. Jerrod Bettencourt MCHC (RBC) [Mass/Vol] 35.1 g/dL Normal 29.9-35.2 [facility] Comment on above: Performed By: #### R PRQ #### [facility] [address] [place] [address] Dr. Jerrod Bettencourt MCV (RBC) [Entitic vol] 93.8 fL Normal 81.0-99.0 [facility] Comment on above: Performed By: #### R PRQ #### [facility] [address] [place] [address] Dr. Jerrod Bettencourt MONO # 1.1 103/ul Critically high 0.3-0.8 [facility] Comment on above: Performed By: #### R PRQ #### [facility] [address] [place] [address] Dr. Jerrod Bettencourt Monocytes/100 WBC (Bld) 7.9 % Normal 1.7-12.0 The [facility] Comment on above: Performed By: #### R PRQ #### [facility] [address] [place] [address] Dr. Jerrod Bettencourt NEUT # 11.1 103/ul Critically high 1.4-6.5 The [facility] Comment on above: Performed By: #### R PRQ #### [facility] [address] [place] [address] Dr. Jerrod Bettencourt Neutrophils/100 WBC (Bld) 76.4 % Critically high 43.0-75.0 [facility] Comment on above: Performed By: #### R PRQ #### [facility] [address] [address] [address] Jerrod Bettencourt Platelet mean volume (Bld) [Entitic vol] 10.6 fL Normal 9.5-13.5 The [facility] Comment on above: Performed By: #### R PRQ #### [facility] [address] [address] [address] Jerrod Bettencourt PLT 147 103/ul Critically low 150-450 [facility] Comment on above: Performed By: #### R PRQ #### [facility] [address] [address] [address] Jerrod Bettencourt RBC 2.89 106/ul Critically low 4.20-5.40 The [facility] Comment on above: Performed By: #### R PRQ #### [facility] [address] [address] [address] Jerrod Bettencourt WBC 14.5 103/ul Critically high 4.0-11.0 [facility] Comment on above: Performed By: #### R PRQ #### [facility] [address] [address] [address] Jerrod Bettencourt CBC AUTO DIFFon 06-02-2022 BASO # 0.1 103/ul Normal 0.0-0.[address] [facility] Comment on above: Performed By: #### C BC ####[facility] [address] [address]DrMoises Bettencourt Basophils/100 WBC (Bld) 0.4 % Normal 0.2-2.0 The [facility] Comment on above: Performed By: #### C BC ####[facility] [address] [address]DrMoises Bettencourt EO # 0.4 103/ul Normal 0.0-0.7 The [facility] Comment on above: Performed By: #### C BC ####[facility] [address] [address]DrMoises Bettencourt Eosinophils/100 WBC (Bld) 3.5 % Normal 0.9-7.0 The [facility] Comment on above: Performed By: #### C BC ####[facility] [address] [address]Dr. Jerrod Bettencourt Erythrocyte distribution width (RBC) [Ratio] 12.9 % Normal 11.0-15.[address] [facility] Comment on above: Performed By: #### C BC ####[facility] [address] [address]Dr. Jerrod Bettencourt Hematocrit (Bld) [Volume fraction] 37.0 % Normal 36.0-48.0 The [facility] Comment on above: Performed By: #### C BC ####[facility] [address] [place], [place] [address]Dr. Jerrod Bettencourt Hemoglobin (Bld) [Mass/Vol] 13.3 g/dL Normal 12.0-16.0 The [facility] Comment on above: Performed By: #### C BC ####[facility] [address] [place], [place] [address]Dr. Jerrod Bettencourt IG # 0.10 10e3/ul Critically high 0.00-0.03 [facility] Comment on above: Performed By: #### C BC ####[facility] [address] [place], [place] [address]Dr. Jerrod Bettencourt IG % 0.8 % Critically high 0.0-0.5 The [facility] Comment on above: Performed By: #### C BC ####[facility] [address] [place], [place] [address]Dr. Jerrod Bettencourt LYMPH # 2.6 103/ul Normal 1.2-3.8 The [facility] Comment on above: Performed By: #### C BC ####[facility] [address] [place], [place] [address]Dr. Jerrod Bettencourt Lymphocytes/100 WBC (Bld) 21.6 % Normal 20.5-60.0 The [facility] Comment on above: Performed By: #### C BC ####[facility] [address] [place], [place] [address]Dr. Jerrod Bettencourt MANUAL DIFF REQ NO Normal The [facility] Comment on above: Performed By: #### C BC ####[facility] [address] [place], [place] [address]Dr. Jerrod Bettencourt MCH (RBC) [Entitic mass] 32.8 pg Normal 26.7-34.0 The [facility] Comment on above: Performed By: #### C BC ####[facility] [address] [id number]. Jerrod Bettencourt MCHC (RBC) [Mass/Vol] 35.9 g/dL Critically high 29.9-35.2 The [facility] Comment on above: Performed By: #### C BC ####[facility] [address] [id number]. Jerrod Bettencourt MCV (RBC) [Entitic vol] 91.1 fL Normal 81.0-99.0 The [facility] Comment on above: Performed By: #### C BC ####[facility] [address] [id number]. Jerrod Bettencourt MONO # 1.0 103/ul Critically high 0.3-0.8 [facility] Comment on above: Performed By: #### C BC ####[facility] [address] [address]Dr. Jerrod Bettencourt Monocytes/100 WBC (Bld) 8.2 % Normal 1.7-12.0 The [facility] Comment on above: Performed By: #### C BC ####[facility] [address] [id number]. Jerrod Bettencourt NEUT # 8.0 103/ul Critically high 1.4-6.5 The [facility] Comment on above: Performed By: #### C BC ####[facility] [address] [id number]. Jerrod Bettencourt Neutrophils/100 WBC (Bld) 65.5 % Normal 43.0-75.0 The [facility] Comment on above: Performed By: #### C BC ####[facility] [address] [id number]. Jerrod Bettencourt Platelet mean volume (Bld) [Entitic vol] 12.1 fL Normal 9.5-13.5 The [facility] Comment on above: Performed By: #### C BC ####[facility] [address] [place], [place] [address]Uy. Jerrod Bettencourt PLT 181 103/ul Normal 150-450 The [facility] Comment on above: Performed By: #### C BC ####[facility] [address] [place], [place] [address]Ax. Jerrod Bettencourt RBC 4.06 106/ul Critically low 4.20-5.40 The [facility] Comment on above: Performed By: #### C BC ####[facility] [address] [place], [place] [address]Cq. Jerrod Bettencourt WBC 12.2 103/ul Critically high 4.0-11.0 The [facility] Comment on above: Performed By: #### C BC ####[facility] [address] [place], [place] [address]Bx. Jerrod Bettencourt Covid-19 PCR (CVDTB)on 05-06 SARS-CoV-2 (COVID-19) RNA KATHY+probe Ql (Unsp spec) Not detected Normal NOT DETECTED The [facility] Comment on above: Result Comment: When [...] for this test is supported by the [place] [employer] Service's declaration that [...] used). Performed By: #### C VDTBH #### [facility] [address] [place], [place] [address] Dr. Jerrod Bettencourt DRUG SCREEN RAPID (URINE)on 06-02-2022 AMP Negative Normal NEGATIVE The [facility] Comment on above: Performed By: #### D RUGRPD ####[facility] [address] [place] [address]Dr. Tayloroseas Bettencourt BAR Negative Normal NEGATIVE The [facility] Comment on above: Performed By: #### D RUGRPD ####[facility] [address] [address]Dr. Jerrod Bettencourt BUP Negative Normal NEGATIVE The [facility] Comment on above: Performed By: #### D RUGRPD ####[facility] [address] [place], [place] [address]Dr. Tayloroseas Bettencourt BZO Negative Normal NEGATIVE The [facility] Comment on above: Performed By: #### D RUGRPD ####[facility] [address] [place], [place] [address]Dr. Tayloroseas Bettencourt VERNA Negative Normal NEGATIVE The [facility] Comment on above: Performed By: #### D RUGRPD ####[facility] [address] [place], [place] [address]Dr. Jerrod Bettencourt CUT-OFFS SEE BELOW Normal The [facility] Comment on above: Result Comment: AMP (Amphetamine): 500ng/mL, BAR (Barbituates): 200 ng/mL, BZO (Benzodiazepines): 150 ng/mL, BUP (Buprenorphine): 10 ng/mL, VERNA (Cocaine): 150 ng/mL, mAMP (Methamphetamine): 500 ng/mL, MTD (Methadone): 200 ng/mL, OPI (Opiates): 100 ng/mL, OXY (Oxycodone): 100 ng/mL, PCP (Phencyclidine): 25 ng/mL, PPX (Propoxyphene): 300 ng/mL, THC (Cannabinoids): 50 ng/mL, TCA (Trycyclic Antidepressants): 300 ng/mL Performed By: #### D RUGRPD ####[facility] [address] [place], [place] [address]Dr. Jerrod Bettencourt DRUG CUT HEADER DRUG CLASS TEST SYSTEM CUT-OFF CONCENTRATIONS ARE FOLLOWS: Normal [facility] Comment on above: Performed By: #### D RUGRPD ####[facility] [address] [place] [id number]. Jerrod Bettencourt mAMP Negative Normal NEGATIVE The [facility] Comment on above: Performed By: #### D RUGRPD ####[facility] [address] [place] [id number]. Jerrod Bettencourt MTD Negative Normal NEGATIVE The [facility] Comment on above: Performed By: #### D RUGRPD ####[facility] [address] [place] [address]Dr. Jerrod Bettencourt OPI Negative Normal NEGATIVE The [facility] Comment on above: Performed By: #### D RUGRPD ####[facility] [address] [address]Dr. Jerrod Bettencourt OXY Negative Normal NEGATIVE The [facility] Comment on above: Performed By: #### D RUGRPD ####[facility] [address] [address]Dr. Jerrod Bettencourt PCP Negative Normal NEGATIVE The [facility] Comment on above: Performed By: #### D RUGRPD ####[facility] [address] [address]Dr. Jerrod Bettencourt PPX Negative Normal NEGATIVE The [facility] Comment on above: Performed By: #### D RUGRPD ####[facility] [address] [address]Dr. Jerrod Bettencourt TCA Negative Normal NEGATIVE The [facility] Comment on above: Performed By: #### D RUGRPD ####[facility] [address] [address]Dr. Jerrod Bettencourt THC Negative Normal NEGATIVE The [facility] Comment on above: Performed By: #### D RUGRPD ####[facility] [address] [address]Dr. Jerrod Bettencourt TYPE AND SCREENon 06-02-2022 TYPE AND SCREEN Negative Normal The [facility] Comment on above: Performed By: #### T NS #### [facility] [address] [address] [address] Jerrod Bettencourt US PREG BIOPHY W [...] by: MELITA MARTINEZ Date: 2022-06-01 16:[address] [facility] US PREG BIOPHY W NON [...] MARTINEZ Date: 2022-05-24 17:[address] [facility] US PREG GROWTHon 05-24-2022 US PREG GROWTH EXAMINATION: [...] MELITA MARTINEZ Date: 2022-05-24 17:19 Normal The [facility] US PREG BIOPHY W NON STRESSo [...] by: ELIAS YOUNG Date: 2022-05-17 16:[address] [facility] GROUP B STREP CULTUREon 05-04 S. agalactiae Ag Ql (Unsp spec) Culture Observations: NEGATIVE FOR GROUP B STREPTOCOCCUS. Normal The [facility] Comment on above: Performed By: #### G BSCX ####[facility] [address] [place], [place] [address]Ds. Jerrod Bettencourt US PREG BIOPHY W NON [...] MELITA MARTINEZ Date: 2022-05-11 16:48 Normal The [facility] US PREG GROWTHon 05-09-2022 US PREG [...] by: ELIAS YOUNG Date: 2022-05-09 19:[address] [facility] US PREG BIOPHY W NON [...] 4 days CONCLUSION: Total biophysical profile score: / Electronically authenticated by: ELIAS YOUNG Date: 2022-05-03 09:[address] [facility] US PREG BIOPHY W NON [...] by: MELITA MARTINEZ Date: 2022-04-27 16:[address] [facility] US PREG BIOPHY W NON [...] by: MELITA MARTINEZ Date: 2022-04-20 19:[address] [facility] US PREG GROWTHon 04-11-2022 US PREG GROWTH [...] by: ELIAS YOUNG Date: 2022-04-11 18:[address] [facility] GLUCOSE - 1HRon 03-21-2022 Glucose [Mass/Vol] 137 mg/dL Critically high 74-106 [facility] Comment on above: Performed By: #### G LU1HR ####[facility] [address] [address]Dr. Jerrod Bettencourt HEMOGRAM AND PLATELon 2021 Hematocrit (Bld) [Volume fraction] 36.1 % Normal 36.0-48.[address] [facility] Comment on above: Performed By: #### H H ####[facility] [address] [address]Dr. Jerrod Bettencourt Hemoglobin (Bld) [Mass/Vol] 12.4 g/dL Normal 12.0-16.0 The [facility] Comment on above: Performed By: #### H H ####[facility] [address] [address]Dr. Jerrod Bettencourt MCH (RBC) [Entitic mass] 32.6 pg Normal 26.7-34.0 The [facility] Comment on above: Performed By: #### H H ####[facility] [address] [address]Dr. Jerrod Bettencourt MCHC (RBC) [Mass/Vol] 34.3 g/dL Normal 29.9-35.2 The [facility] Comment on above: Performed By: #### H H ####[facility] [address] [address]Dr. Jerrod Bettencourt MCV (RBC) [Entitic vol] 95.0 fL Normal 81.0-99.0 The [facility] Comment on above: Performed By: #### H H ####[facility] [address] [address]Dr. Jerrod Bettencourt PLT 203 103/ul Normal 150-450 [facility] Comment on above: Performed By: #### H H ####[facility] [address] [address]Dr. Jerrod Bettencourt RBC 3.80 106/ul Critically low 4.20-5.40 [facility] Comment on above: Performed By: #### H H ####[facility] [address] [place] [address]Dr. Jerrod Bettencourt WBC 10.9 103/ul Normal 4.0-11.0 The [facility] Comment on above: Performed By: #### H H ####[facility] [address] [place] [address]Dr. Jerrod Bettencourt TYPE AND SCREENon 03-21-2022 TYPE AND SCREEN Negative Normal [facility] Comment on above: Performed By: #### T NS ####[facility] [address] [place] [address]Dr. Jerrod Bettencourt CULTURE URINEon 02-20-2022 CULTURE URINE Culture Observations: LIGHT GROWTH OF MIXED GENITAL PALMER. NO POTENTIAL PATHOGENS SEEN. Normal The [facility] Comment on above: Performed By: #### U RCX #### [facility] [address] [place] [address] Dr. Jerrod Bettencourt UA RANDOM W/MICROSCOPICon BACTERIA MODERATE Abnormal NONE SEEN [facility] Comment on above: Performed By: #### R PRQ #### [facility] [address] [place] [address] Dr. Jerrod Bettencourt Bilirubin Ql (U) Negative Normal NEGATIVE [facility] Comment on above: Performed By: #### R PRQ #### [facility] [address] [address] [address] Jerrod Bettencourt CAST SEEN Abnormal NONE SEEN [facility] Comment on above: Performed By: #### R PRQ #### [facility] [address] [address] [address] Jerrod Bettencourt Clarity (U) CLEAR Normal CLEAR The [facility] Comment on above: Performed By: #### R PRQ #### [facility] [address] [address] [address] Jerrod Bettencourt Color (U) LT. YELLOW Normal YELLOW The [facility] Comment on above: Performed By: #### R PRQ #### [facility] [address] [address] [address] Jerrod Bettencourt Crystals LM Nom (Urine sed) NONE SEEN Normal NONE SEEN [facility] Comment on above: Performed By: #### R PRQ #### [facility] [address] [address] [address] Jerrod Bettencourt Epithelial cells LM Ql (Urine sed) MANY Abnormal NONE SEEN /RARE The [facility] Comment on above: Performed By: #### R PRQ #### [facility] [address] [place] [address] Dr. Jerrod Bettencourt Glucose Ql (U) Negative Normal NEGATIVE [facility] Comment on above: Performed By: #### R PRQ #### [facility] [address] [address] [address] Jerrod Bettencourt Hemoglobin Ql (U) Negative Normal NEGATIVE [facility] Comment on above: Performed By: #### R PRQ #### [facility] [address] [place] [address] Dr. Jerrod Bettencourt HYALINE CAST FEW Normal The [facility] Comment on above: Performed By: #### R PRQ #### [facility] [address] [place] [address] Dr. Jerrod Bettencourt Ketones Ql (U) Negative Normal NEGATIVE [facility] Comment on above: Performed By: #### R PRQ #### [facility] [address] [address] [address] Jerrod Bettencourt LEUKOCYTES LARGE Abnormal NEGATIVE The [facility] Comment on above: Performed By: #### R PRQ #### [facility] [address] [place] [address] Dr. Jerrod Bettencourt MUCOUS TRACE Abnormal NONE SEEN [facility] Comment on above: Performed By: #### R PRQ #### [facility] [address] [place] [address] Dr. Jerrod Bettencourt Nitrite Ql (U) Negative Normal NEGATIVE [facility] Comment on above: Performed By: #### R PRQ #### [facility] [address] [place] [address] Dr. Jerrod Bettencourt pH (U) 7.5 [pH] Normal 5-9 The [facility] Comment on above: Performed By: #### R PRQ #### [facility] [address] [place] [address] Dr. Jerrod Bettencourt RBC 0-2 Normal 0-2 [facility] Comment on above: Performed By: #### R PRQ #### [facility] [address] [address] [address] Jerrdo Bettencourt SPEC GRAVITY 1.020 Normal 1.005-<=1.025 [facility] Comment on above: Performed By: #### R PRQ #### [facility] [address] [address] [address] Jerrod Bettencourt UA PROTEIN Negative Normal NEGATIVE/ TRACE The [facility] Comment on above: Performed By: #### R PRQ #### [facility] [address] [address] [address] Jerrod Bettencourt Urobilinogen Qn (U) 0.2 {Tuan'U}/dL Normal 0.2 - 1. [address] [facility] Comment on above: Performed By: #### R PRQ #### [facility] [address] [place] [address] Dr. Jerrod Bettencourt WBC 5-10 Abnormal NONE SEEN The [facility] Comment on above: Performed By: #### R PRQ #### [facility] [address] [place] [address] Dr. Jerrod Bettencourt US PREG ANATOMY SINGLEon [...] MELITA MARTINEZ Date: 2022-01-23 09:58 Normal [facility] [facility] AFP MATERNAL FOR SPINA BIFID Aon 01-19-2022 AFP MoM 0.62 Normal [facility] Comment on above: Performed By: #### A FPMAT ####[facility] Hlsmxlwgtj4[address] [place] [id number]. Tayloroseas [facility] AFP Value 32.3 ng/mL Normal [facility] Comment on above: Performed By: #### A FPMAT ####[facility] Jpb[address]ewqy[address] [place] [id number]. Jerrod Bettencourt AFP, Serum for Spina Bifida Report Normal [facility] Comment on above: Performed By: #### A FPMAT ####[facility] Ojpxxoolce[address] [place] [id number]. Jerrod Bettencourt Comment Comment Normal [facility] Comment on above: Result Comment: Fernandez Silverio, Ph.D., [facility] Director . References: Available Upon Request. . Multiples Of Median Cutoffs For AFP Elevations Weeks 2.5 Black 2.8 IDD 2.0 Twins 4.5 Abbreviation Definitions IDD - Insulin Dep Diabetes OSBR - Open Spina Bifida Risk . For further inquiries contact [facility] Services at [phone]. Performed By: #### A FPMAT ####[facility] Btqoajiuuq[address] [place] [id number]. Jerrod Bettencourt Gest Age Collection Date 19.4 weeks Normal [facility] Comment on above: Performed By: #### A FPMAT ####[facility] Ywpvmnfbek1127 [place] [id number]. Jerrod Bettencourt Gestat, Age Based on LMP [facility] Comment on above: Result Comment: Reca lculations are not recommended when gestational dating by LMP and ultrasound are within 10 days. Performed By: #### A FPMAT ####[facility] Htwkzqtjll6517 [place] [id number]. Jerrod Bettencourt Insulin Dep Diabetes No Normal [facility] Comment on above: Performed By: #### A FPMAT ####[facility] Mlprpxxzoh4272 [place] [phone]. Jerrod Bettencourt Interpretation Comment Normal The [facility] Comment on above: Result Comment: Inte [...] Customer Services to discuss available options. The [employer] recommends amniocentesis be offered to women age 35 and older. Performed By: #### A FPMAT ####[facility] Mdfegihvnc[address] [place] [id number]. Jerrod Bettencourt [age] Normal [facility] Comment on above: Performed By: #### A FPMAT ####[facility] Ndgofkipdl4555 [place] [id number]. Jerrod Bettencourt Multiple Gestation No Normal [facility] Comment on above: Performed By: #### A FPMAT ####[facility] Jjmuotilzr17[address] [place] [id number]. Jerrod Bettencourt OS[place] 1 [place] [address] Normal [facility] Comment on above: Performed By: #### A FPMAT ####[facility] Hnleqqxrjq4521 [place] [phone]. Jerrod Bettencourt PDF . Normal [facility] Comment on above: Performed By: #### A FPMAT ####[facility] Iorlqvqtop2854 [place] [phone]. Jerrod Bettencourt Race Normal [facility] Comment on above: Performed By: #### A FPMAT ####[facility] Dcpedqdcrv7226 [place] [phone]. Jerrod Bettencourt Test Results: Negative Normal The [facility] Comment on above: Performed By: #### A FPMAT ####[facility] Wtgfoansya5872 [place] [phone]. Jerrod Bettencourt CHLAMYDIA/GONOCOCCUS KATHY (SW AB/URINE/PAPon 12-26-2021 Chlamydia trachomatis, KATHY Negative Normal Negative [facility] Comment on above: Performed By: #### R PRQ #### [facility] [address] [place] [address] [address] Jerrod Bettencourt Neisseria gonorrhoeae, KATHY Negative Normal Negative [facility] Comment on above: Performed By: #### R PRQ #### [facility] [address] [place] [address] [address] Jerrod Bettencourt VAGINITIS/VAGINOSIS DNA PROB Salvador 12-25-2021 Rosalinda species Negative Normal Negative The [facility] Comment on above: Performed By: #### V AGINT ####[facility] [address] [place] [address]Dr. Jerrod Bettencourt Gardnerella vaginalis Positive Abnormal Negative [facility] Comment on above: Performed By: #### V AGINT ####[facility] [address] [place] [address]Dr. Jerrod Bettencourt Trichomonas vaginalis Negative Normal Negative [facility] Comment on above: Performed By: #### V AGINT ####[facility] [address]jsvhribn[address] [place] [address]Dr. Jerrod Bettencourt CULTURE URINEon 11-27-2021 CULTURE URINE [...] F Oxacillin <=0.25 S F Normal [facility] Comment on above: Performed By: #### U RCX #### [facility] [address] [place] [address] Dr. Jerrod Bettencourt HEP B SURFACE ANTIGEN SCREEN on 11-27-2021 HBsAg Screen Negative Normal Negative [facility] Comment on above: Performed By: #### R PRQ #### [facility] [address] [place] [address] Dr. Jerrod Bettencourt HEPATITIS C VIRUS AB W/ REFL EX QUANTon 11-27-2021 HCV AB <0.1 Normal 0.0-0.[address] [facility] Comment on above: Performed By: #### R PRQ #### [facility] [address] [place] [address] Dr. Jerrod Bettencourt Interpretation: Comment Normal [facility] Comment on above: Result Comment: Nega tive Not infected with HCV, unless recent infection is suspected or other evidence exists to indicate HCV infection. Performed By: #### R PRQ #### [facility] [address] [place] [address] Dr. Jerrod Bettencourt HIV 1 AND 2 WITH REFLEXon HIV Screen 4th Generation wRfx Non-Reactive Normal Non Reactive [facility] Comment on above: Result Comment: HIV Negative HIV-1/HIV-2 antibodies and HIV-1 p24 antigen were NOT detected. There is no laboratory evidence of HIV infection. Performed By: #### R PRQ #### [facility] [address] [place] [address] Dr. Jerrod Bettencourt RPR QUANTon 11-27-2021 Rapid Plasma Reagin, Quant Non-Reactive Normal NonRea<1:[address] [facility] Comment on above: Performed By: #### R PRQ #### [facility] [address] [place] [address] Dr. Jerrod Bettencourt RUBELLA AB IGGon 11-27-2021 Rubella Antibodies, IgG 1.52 index Normal Immune >0.[address] [facility] Comment on above: Result Comment: Non- immune <0.90 Equivocal 0.90 - 0.99 Immune >0.99 Performed By: #### R PRQ #### [facility] [address] [address] [address] Jerrod Bettencourt CBC AUTO DIFFon 11-25-2021 BASO # 0.0 103/ul Normal 0.0-0.[address] [facility] Comment on above: Performed By: #### R PRQ #### [facility] [address] [place] [address] Dr. Jerrod Bettencourt Basophils/100 WBC (Bld) 0.3 % Normal 0.2-2.[address] [facility] Comment on above: Performed By: #### R PRQ #### [facility] [address] [place] [address] Dr. Jerrod Bettencourt EO # 0.3 103/ul Normal 0.0-0.[address] [facility] Comment on above: Performed By: #### R PRQ #### [facility] [address] [place] [address] Dr. Jerrod Bettencourt Eosinophils/100 WBC (Bld) 2.2 % Normal 0.9-7.[address] [facility] Comment on above: Performed By: #### R PRQ #### [facility] [address] [place] [address] Dr. Jerrod Bettencourt Erythrocyte distribution width (RBC) [Ratio] 13.4 % Normal 11.0-15.[address] [facility] Comment on above: Performed By: #### R PRQ #### [facility] [address] [place] [address] Dr. Jerrod Bettencourt Hematocrit (Bld) [Volume fraction] 39.5 % Normal 36.0-48.[address] [facility] Comment on above: Performed By: #### R PRQ #### [facility] [address] [place] [address] Dr. Jerrod Bettencourt Hemoglobin (Bld) [Mass/Vol] 14.2 g/dL Normal 12.0-16.[address] [facility] Comment on above: Performed By: #### R PRQ #### [facility] [address] [place] [address] Dr. Jerrod Bettencourt IG # 0.05 10e3/ul Critically high 0.00-0.03 [facility] Comment on above: Performed By: #### R PRQ #### [facility] [address] [address] [address] Jerrod Bettencourt IG % 0.4 % Normal 0.0-0.[address] [facility] Comment on above: Performed By: #### R PRQ #### [facility] [address] [place] [address] Dr. Jerrod Bettencourt LYMPH # 2.8 103/ul Normal 1.2-3.[address] [facility] Comment on above: Performed By: #### R PRQ #### [facility] [address] [place] [address] Dr. Jerrod Bettencourt Lymphocytes/100 WBC (Bld) 22.8 % Normal 20.5-60.[address] [facility] Comment on above: Performed By: #### R PRQ #### [facility] [address] [place] [address] Dr. Jerrod Bettencourt MANUAL DIFF REQ NO Normal [facility] Comment on above: Performed By: #### R PRQ #### [facility] [address] [place] [address] Dr. Jerrod Bettencourt MCH (RBC) [Entitic mass] 31.6 pg Normal 26.7-34.[address] [facility] Comment on above: Performed By: #### R PRQ #### [facility] [address] [place] [address] Dr. Jerrod Bettencourt MCHC (RBC) [Mass/Vol] 35.9 g/dL Critically high 29.9-35.[address] [facility] Comment on above: Performed By: #### R PRQ #### [facility] [address] [place] [address] Dr. Jerrod Bettencourt MCV (RBC) [Entitic vol] 87.8 fL Normal 81.0-99.[address] [facility] Comment on above: Performed By: #### R PRQ #### [facility] [address] [place] [address] Dr. Jerrod Bettencourt MONO # 0.8 103/ul Normal 0.3-0.[address] [facility] Comment on above: Performed By: #### R PRQ #### [facility] [address] [address] [address] Jerrod Bettencourt Monocytes/100 WBC (Bld) 6.8 % Normal 1.7-12.[address] [facility] Comment on above: Performed By: #### R PRQ #### [facility] [address] [address] [address] Jerrod Bettencourt NEUT # 8.2 103/ul Critically high 1.4-6.5 [facility] Comment on above: Performed By: #### R PRQ #### [facility] [address] [place] [address] Dr. Jerrod Bettencourt Neutrophils/100 WBC (Bld) 67.5 % Normal 43.0-75.[address] [facility] Comment on above: Performed By: #### R PRQ #### [facility] [address] [place] [address] Dr. Jerrod Bettencourt Platelet mean volume (Bld) [Entitic vol] 9.5 fL Normal 9.5-13.[address] [facility] Comment on above: Performed By: #### R PRQ #### [facility] [address] [address] [address] Jerrod Bettencourt PLT 235 103/ul Normal 150-[address] [facility] Comment on above: Performed By: #### R PRQ #### [facility] [address] [place] [address] Dr. Jerrod Bettencourt RBC 4.50 106/ul Normal 4.20-5.40 [facility] Comment on above: Performed By: #### R PRQ #### [facility] [address] [place] [address] Dr. Jerrod Bettencourt WBC 12.2 103/ul Critically high 4.0-11.0 [facility] Comment on above: Performed By: #### R PRQ #### [facility] [address] [place] [address] Dr. Jerrod Bettencourt GLYCOHEMOGLOBIN A1Con 2021 ADA RECOMMENDATION ADA THERAPEUTIC TARGET 6.0 - 7.0 ACTION SUGGESTED > 7.[address] [facility] Comment on above: Performed By: #### R PRQ #### [facility] [address] [address] [address] Jerrod Bettencourt Glucose [Mass/Vol] 94 mg/dL Normal [facility] Comment on above: Performed By: #### R PRQ #### [facility] [address] [address] [address] Jerrod Bettencourt HbA1c (Bld) [Mass fraction] 4.9 % Normal <=6.0 [facility] Comment on above: Performed By: #### R PRQ #### [facility] [address] [address] [address] Jerrod Bettencourt TYPE AND SCREENon 11-25-2021 TYPE AND SCREEN Negative Normal [facility] Comment on above: Performed By: #### T NS #### [facility] [address] [address] [address] Jerrod Bettencourt UA RANDOM W/MICROSCOPICon BACTERIA LARGE Abnormal NONE SEEN [facility] Comment on above: Performed By: #### U AMIC ####[facility] [address] [place] [address]Dr. Jerrod Bettencourt Bilirubin Ql (U) Negative Normal NEGATIVE [facility] Comment on above: Performed By: #### U AMIC ####[facility] [address] [place] [address]Dr. Jerrod Bettencourt CAST NONE SEEN Normal NONE SEEN [facility] Comment on above: Performed By: #### U AMIC ####[facility] Swxdqcafqs[address] [place] [address]Dr. Jerrod Bettencourt Clarity (U) SL CLOUDY Abnormal CLEAR [facility] Comment on above: Performed By: #### U AMIC ####[facility] [address] [place] [address]Dr. Jerrod Bettencourt Color (U) LT. YELLOW Normal YELLOW [facility] Comment on above: Performed By: #### U AMIC ####[facility] X[address] [place] [address]Dr. Jerrod Bettencourt Crystals LM Nom (Urine sed) NONE SEEN Normal NONE SEEN [facility] Comment on above: Performed By: #### U AMIC ####[facility] [address] [place] [address]Dr. Jerrod Bettencourt Epithelial cells LM Ql (Urine sed) MODERATE Abnormal NONE SEEN /RARE [facility] Comment on above: Performed By: #### U AMIC ####[facility] [address]eg[address]jh[address] [place] [id number]. Jerrod Bettencourt Glucose Ql (U) Negative Normal NEGATIVE [facility] Comment on above: Performed By: #### U AMIC ####[facility] [address]fewvohz[address] [place] [address]Dr. Jerrod Bettencourt Hemoglobin Ql (U) TRACE-INTACT Abnormal NEGATIVE [facility] Comment on above: Performed By: #### U AMIC ####[facility] [address]cl[address] [place] [address]Dr. Jerrod Bettencourt Ketones Ql (U) Negative Normal NEGATIVE [facility] Comment on above: Performed By: #### U AMIC ####[facility] [address] [place], [place] [address]Dr. Jerrod Bettencourt LEUKOCYTES LARGE Abnormal NEGATIVE [facility] Comment on above: Performed By: #### U AMIC ####[facility] [address] [place] [address]Dr. Jerrod Bettencourt MUCOUS NONE SEEN Normal NONE SEEN [facility] Comment on above: Performed By: #### U AMIC ####[facility] [address] [place], [place] [address]Dr. Jerrod Bettencourt Nitrite Ql (U) Positive Abnormal NEGATIVE [facility] Comment on above: Performed By: #### U AMIC ####[facility] [address]jkx[address] [place] [address]Dr. Jerrod Bettencourt pH (U) 6.5 [pH] Normal 5-9 [facility] Comment on above: Performed By: #### U AMIC ####[facility] [address] [place] [address]Dr. Jerrod Bettencourt RBC 2-5 Abnormal 0-2 [facility] Comment on above: Performed By: #### U AMIC ####[facility] [address]krl[address]lcvb[address] [place], [place] [address]Nz. Jerrod Bettencourt SPEC GRAVITY 1.020 Normal 1.005-<=1.025 [facility] Comment on above: Performed By: #### U AMIC ####[facility] [address]ms[address] [place], [place] [address]Dn. Jerrod Bettencourt UA PROTEIN Negative Normal NEGATIVE/ TRACE [facility] Comment on above: Performed By: #### U AMIC ####[facility] [address]zvmwhk4[address] [place], [place] [address]It. Jerrod Bettencourt Urobilinogen Qn (U) 0.2 {Tuan'U}/dL Normal 0.2 - 1. 0 [facility] Comment on above: Performed By: #### U AMIC ####[facility] [address] [place] [id number]. Jerrod Bettencourt WBC 75-100 Abnormal NONE SEEN [facility] Comment on above: Performed By: #### U AMIC ####[facility] Dhoiddhxiv2414 [place], [place] [address]Os. Jerrod Bettencourt US PREG TVon 11-02-2021 US [...] MELITA MARTINEZ Date: 2021-11-02 16:19 Normal [facility] Social History Date Type Detail Facility Start: 09-26-2023 End: 10-18-2023 Alcohol intake Ex-drinker (finding) [facility] [employer] Start: 09-24-2023 End: 10-18-2023 Sex Assigned At Female [facility] Start: 09-24-2023 Tobacco use and exposure Smokeless tobacco non-user [facility] Start: 09-24-2023 End: 10-18-2023 History of Social function [facility] Start: 06-14-2023 [facility] Start: 03-05-2023 End: 09-24-2023 Tobacco smoking status NHIS Never smoked tobacco (finding) [facility] Start: 2000 Sex Assigned At Female F [facility] Start: 2000 Sex Assigned At Not on file [facility] Tobacco [facility] Comment on above: denies Tobacco smoking status No Smokin g Status Entered [facility] Within the past 12 months we worried whether our food would run out before we got money to buy more. Never True [facility] Vital Signs Date Time Vital Sign Value Performing Clinician Facility 10-18-2023 10:29-0500 Body height 167.6 cm Verona Decker MD Work Phone: [facility] 10-18-2023 10:29-0500 Body mass index (BMI) [Ratio] 29.05 kg/m2 Verona Decker MD Work Phone: [facility] 10-18-2023 10:29-0500 Body weight 81.65 kg Verona Decker MD Work Phone: [facility] 10-18-2023 10:29-0500 Diastolic blood pressure 66 mm[Hg] Verona Decker MD Work Phone: [facility] 10-18-2023 10:29-0500 Heart rate 84 /min Verona Decker MD Work Phone: [facility] 10-18-2023 10:29-0500 Systolic blood pressure 113 mm[Hg] Verona Decker MD Work Phone: [facility] 01-11-2023 15:36-0400 Body temperature 97.88 [degF] Yash Medina [facility] 01-11-2023 15:36-0400 Diastolic blood pressure 81 mm[Hg] Yash Adam [facility] 01-11-2023 15:36-0400 Heart rate 79 /min Yash Adam [facility] 01-11-2023 15:36-0400 Respiratory rate 18 /min Yash Adam [facility] 01-11-2023 15:36-0400 SaO2% (BldA) [Mass fraction] 99 % Yash Adam [facility] 01-11-2023 15:36-0400 Systolic blood pressure 117 mm[Hg] Yash Adam [facility] 12-07-2022 23:00-0400 Diastolic blood pressure 75 mm[Hg] Yash Adam [facility] 12-07-2022 23:00-0400 Heart rate 74 /min Yash Adam [facility] 12-07-2022 23:00-0400 Mean blood pressure 90 mm[Hg] Yash Adam [facility] 12-07-2022 23:00-0400 Respiratory rate 16 /min Yash Adam [facility] 12-07-2022 23:00-0400 SaO2% (BldA) [Mass fraction] 98 % Yash Adam [facility] 12-07-2022 23:00-0400 Systolic blood pressure 120 mm[Hg] Yash Adam [facility] 12-07-2022 22:00-0400 Diastolic blood pressure 74 mm[Hg] Yash Adam [facility] 12-07-2022 22:00-0400 Heart rate 92 /min Yash Adam [facility] 12-07-2022 22:00-0400 Mean blood pressure 88 mm[Hg] Yash Medina [facility] 12-07-2022 22:00-0400 Systolic blood pressure 115 mm[Hg] Yash Medina [facility] 12-07-2022 21:30-0400 Body temperature 97.7 [degF] Yash Medina [facility] 12-07-2022 21:30-0400 Diastolic blood pressure 87 mm[Hg] Yash Medina [facility] 12-07-2022 21:30-0400 Heart rate 89 /min Yash Medina [facility] 12-07-2022 21:30-0400 Respiratory rate 20 /min Yash Medina [facility] 12-07-2022 21:30-0400 SaO2% (BldA) [Mass fraction] 97 % Yash Medina [facility] 12-07-2022 21:30-0400 Systolic blood pressure 139 mm[Hg] Yash Medina [facility] 01-19-2022 03:11-0400 Body weight 74.[address] NONE LISTED REQUEST [facility] Comment on above: Performed By: #### AFPMAT ####[facility] ospital [address]av[address] [place], [place] [address]KbMoises Tayloroseas Bettencourt Functional Status Date Assessment Result Facility 01-11-2023 Functional Status N/A [facility] 12-07-2022 Functional Status N/A [facility] Clinical Notes 06-02-2022 to 10-18-2023 Verona [...] Medical History: Diagnosis Date Anxiety Bipolar disorder ([facility] Chronic cholecystitis Depression SURGICAL HISTORY: Past Surgical [...] TESTS AND ULTRASOUND REPORTS: Referral records and gateway [facility] were reviewed Pertinent Ultrasound findings [...] of level 2 anatomy ultrasound, scheduled through [facility] Patient to return in 12 weeks at 32 weeks' gestation for re-evaluation of bilateral urinary tract dilation, scheduled through [facility] DISPOSITION: At this point the patient is in complete care of her castables worker. Patient does have ultrasound scheduled with us. Thank you for allowing me to participate in the care of Darlinejorgito BritoFalcon. If there any questions please do not hesitate to contact us. Total time spent was 42 minutes: Preparing to see the patient (e.g., review of tests) Obtaining and/or reviewing separately obtained history Performing a medically appropriate examination and/or evaluation Counseling and educating the patient/family/caregiver Ordering medications, tests, or procedures Referring and communicating with other health career manager (not separately reported) Documenting clinical information in the electronic or other health record Verona Decker MD Maternal- Medicine [place] [id number] [facility] [address] [place] [address] [facility], the CDC, and other organizations representing maternal and public health professionals recommend that , , and lactating people and those considering receive the COVID-19 vaccination. Vaccination is the best method to reduce maternal and complications of SARS-CoV-2 infection. This document was created with [employer] technology. Though I make every effort to review the dictation as it is transcribed, on occasion the spoken word can be misinterpreted by the technology leading to inappropriate words, phrases, or sentences. This note is addressed to the requesting provider as a consultation for clinical guidance. Specific medical abbreviations are occasionally used and those are generally approved by the [place]?Board of?Obstetrics and?Gynecology?as well as?Gayle turner abbreviations. The above plan of care was based solely on the diagnoses for which a consultation was requested. ?More frequent testing may be indicated based on her other medical/obstetrical conditions. The management of other or medical conditions is beyond the scope of requested consultation and will continue to be followed by the primary castables worker or primary care provider. Note to patient: [...] male Have you been seen here at [facility] in a previous ? No Recent ER visits or hospitalizations? No Bring blood sugar log or meter with you today? (Please bring them with you for every visit at [facility]) n/a Traveled outside the country in the past 6 month no Any concerns that you would like me to mention to the provider today? No documented in this encounter [facility] [employer] 01-11-2023 Hospital Discharg e instructions Patient Education [...] are sitting or lying down. Medicines Take rahr-umn-pqduufs and prescription medicines only as told by [...] 07/13/2021 Document Reviewed: 07/13/2021 Elsevier Patient Education 2022 [employer]. 01/11/2023 17:05:20 Contusion Contusion A contusion is [...] sitting or lying down. General instructions Take yiwc-vit-mhyoixa and prescription medicines only as told by [...] compression, and elevation. You may be given lzfn-uyb-yxhezkk medicines for pain. Contact a health care [...] provider. Document Revised: 07/04/2022 Document Reviewed: 06/15/2022 [employer] Patient Education 2022 [employer]. Follow Up Care 01/11/2023 15:31:57 With:Madhavi Bustamante Address: [address] [place] [address]- Business (1) When:01/14/2023 16:47:05 [facility] 01-11-2023 Evaluation + Plan note Extrac yolanda from: Title:ED Note Author:Derek Salcido PA-C te:01/11/23 Finger sprain (S63.619A: Uns pecified sprain of unspecified finger, initial encounter) Hand contusion (S60.229A: Contusion of unspecified hand, initial encounter) Orders: Finger Splint Application XR Hand 3+ Views Left [facility]04-07-2023 Hospital Discharge instructions Patient Education 12/07/2022 23:48:57 [...] water added (diluted fruit juice). Eat bland, ksmp-kg-gmibrh foods in small amounts as you are able. These foods include bananas, applesauce, rice, lean meats, toast, and crackers. Avoid fluids that contain a lot of sugar or caffeine, such as energy drinks, sports drinks, and soda. Avoid alcohol. Avoid spicy or fatty foods. General instructions Take ahgl-xuz-wzimelp and prescription medicines only as told by your health care provider. Drink enough fluid to keep your urine pale yellow. Wash your hands often using soap and water. If soap and water are not available, use hand brake rider. Make sure that all people in your [...] eating and drinking to prevent dehydration. Take vctu-qre-fjmbblz and prescription medicines only as told by [...] 08/20/2006 Document Revised: 12/12/2019 Document Reviewed: 01/28/2019 [employer] Patient Education 2020 [employer]. 12/07/2022 23:48:57 Cholelithiasis Cholelithiasis Cholelithiasis is a [...] family history of gallstones. Being of or [place] descent. Having an intestinal disease such as [...] gallstones. Follow these instructions at home: Take dkyd-sae-ehlkhxo and prescription medicines only as told by [...] 08/16/2006 Document Revised: 08/02/2018 Document Reviewed: 05/06/2017 [employer] Patient Education 2020 [employer]. Follow Up Care 12/07/2022 21:26:38 With:Fernando Clark Address: [address], [address] [place] [phone] Business (1) When:12/10/2022 Comments:General surgeon in [place] With:Willie LOZADA Address: [address], [address] [facility] [address] [place] [address]- Business (1) When:12/10/2022 Comments:General surgeon at [place] With:Please return to the ED with any new or worsening symptoms including worsening pain, fevers and chills, worsening nausea and inability to tolerate a liquid diet. Address:Unknown When: Unknown With:You may follow with the general surgeon recommended to by your primary care provider. You have alsobeen provided with the information for the local [facility] general surgeons. Address:Unknown When: Unknown [facility]04-06-2023 Evaluation + Plan noteExtracted from: Title:ED Note Author:Lupis Miller PA-C [place] e:12/07/22 Cholelithiases (K80.20: Calc ulus of gallbladder without cholecystitis without obstruction) Nausea (R11.0: Nausea) Orders: dicyclomine, 10 mg = 1 cap(s), Oral, QID, PRN Pain, X 7 day(s), # 28 cap(s), Refills(s) 0, Pharmacy: [facility]/pharmacy #[id number], 167.6, cm, 12/07/22 21:32:00 EDT, [...] # 12 tab(s), Refills(s) 0, Pharmacy: [facility]/pharmacy #[id number], 167.6, cm, 12/07/22 21:32:00 EDT, [...] Diagnostic Tests Pending * Urine Culture 12/07/22 [facility]04-03-2023 Evaluation + Plan note Diagnostic Tests Pending * ANGEL w/Reflex if POS 12/04/22 [facility]09-30-2022 NoteOP Note OPERATION DATE: 06/03/2022 PROCEDURE: Primary low transverse section. PREOPERATIVE DIAGNOSIS: 1. Intrauterine 39 weeks. 2. Failure to induce. 3. Maternal discomfort. 4. Maternal intolerance to labor, requesting . POSTOPERATIVE DIAGNOSIS: 1. Intrauterine 39 weeks. 2. Failure to induce. 3. Maternal discomfort. 4. Maternal intolerance to labor, requesting . ANESTHESIA: Spinal with Duramorph. SURGEON: John Wilson D.O. CONTENT DEVELOPMENT SPECIALIST: JOSÉ Burnham URINE OUTPUT: Yellow and clear. [...] to the Recovery Room in stable condition.[facility] [id number] Note DISCHARGE SUMMARY DISCHARGE DATE: 06/17/2022 PRIMARY [...] pain free and no longer on narcotics.[facility] [id number] NoteOPERATIVE NOTE OPERATION DATE: 06/04/2022 PROCEDURE: Primary low transverse section. PREOPERATIVE DIAGNOSIS: 1. Intrauterine 39 weeks. 2. Failure to induce. 3. Maternal discomfort. 4. Maternal intolerance to labor, requesting . POSTOPERATIVE DIAGNOSIS: 1. Intrauterine 39 weeks. 2. Failure to induce. 3. Maternal discomfort. 4. Maternal intolerance to labor, requesting . ANESTHESIA: Spinal with Duramorph. SURGEON: John Wilson D.O. CONTENT DEVELOPMENT SPECIALIST: JOSÉ Burnham URINE OUTPUT: Yellow and clear. [...] to the Recovery Room in stable condition.[facility] HospitalEvaluation noteNo assessment information availableKettering Health [facility] Work Phone: Evaluation note* Diagnosis 20 weeks gestation of - Primary Abnormal thyroid function test Nonspecific abnormal results of thyroid function study Bipolar affective disorder, remission status unspecified ([facility]) Depression affecting Pyelectasis of fetus on ultrasound documented in this encounter [facility]* Diagnosis Abnormal thyroid function test- Primary Nonspecific abnormal results of thyroid function study Pyelectasis of fetus on ultrasound [facility] N[facility] No data available for this section [facility] No data available for this section [facility] CenterInstructionsNot on filedocumented in this encounter [facility] SystemInstructionsNot on filedocumented in this encounter [facility] System[facility]ructionsNot on filedocumented in this encounter [facility] No data available for this section [facility] Summary Purpose Family History No Family History [...] without consult Verona Decker MD [address] [place] [address] [facility] [address] [place] [address] Referral ID Status Reason Start Date Expiration Date V isits Requested Visits Authorized [id number] Pending Review 10/19/2023 10/18/2024 1 1 Additional Source Comments INFORMATION SOURCE (unrecogn ized section and content) DATE CREATED AUTHOR 11/01/2022 [facility] DATE CREATED AUTHOR AUTHOR'S ORGANIZ ATION 01/12/2023 [facility] DATE CREATED AUTHOR AUTHOR'S ORGANIZ ATION 05/04/2023 [facility] DATE CREATED AUTHOR AUTHOR'S ORGANIZ ATION 01/13/2024 [facility] DATE CREATED AUTHOR AUTHOR'S ORGANIZ ATION 02/22/2024 [facility] EPIC Patient Care team informatio [...] BE BASED ON THE PRIMARY CLINICAL RECORDS. [email or web address]. provides no warranty or guarantee of the accuracy or completeness of information in this document.
[2024-02-29] MEDS: 0.9 % SODIUM CHLORIDE 1,000 ML 125 ML IV ×2 (05:55→06:36)
[2024-02-29 06:20] LABS: Hematocrit 33.7 % (36.0-48.0); Hemoglobin 11.6 g/dL (12.0-16.0); Mean Corpuscular HGB Conc 34.4 g/dL (29.9-35.2); Mean Corpuscular Volume 90.1 fL (81.0-99.0); Mean Platelet Volume 11.7 fL (9.5-13.5); Platelet Count 189 10^3/uL (150-450); Red Blood Count 3.74 10^6/uL (4.20-5.40); Red Cell Distribution Width 13.2 % (11.0-15.0); White Blood Count 9.7 10^3/uL (4.0-11.0)
[2024-02-29 06:28] LABS: Amphetamine Screen Urine NEGATIVE (NEGATIVE); Barbiturates Screen Urine NEGATIVE (NEGATIVE); Benzodiazepines Screen Urine NEGATIVE (NEGATIVE); Buprenorphine Screen Urine NEGATIVE (NEGATIVE); Cannabinoid Screen Urine NEGATIVE (NEGATIVE); Cocaine Screen Urine NEGATIVE (NEGATIVE); Methadone Screen Urine NEGATIVE (NEGATIVE); Methamphetamines Screen Urine NEGATIVE (NEGATIVE); Opiate Screen Urine NEGATIVE (NEGATIVE); Oxycodone Screen Urine NEGATIVE (NEGATIVE); Phencyclidine Screen Urine NEGATIVE (NEGATIVE); Tricyclic Antidepressant Urine NEGATIVE (NEGATIVE)
[2024-02-29] MEDS: METOCLOPRAMIDE HCL 10 MG/2 ML VIAL IVP (06:42)
[2024-02-29] MEDS: FAMOTIDINE/PF 20 MG/2 ML VIAL IV (06:42)
[2024-02-29] MEDS: CITRIC ACID/SODIUM CITRATE 30 ML SOLUTION ORACIT SHOHL'S SOLN PO (06:42)
[2024-02-29] MEDS: CEFAZOLIN SODIUM/DEXTROSE,ISO 2 GM/50 ML PIGGYBACK IV ×2 (07:24→14:18)
[2024-02-29] MEDS: LACTATED RINGER'S SOLUTION 1,000 ML 75 ML IV (08:46)
--- NOTE | 2024-02-29 09:13 | P.ON_ITS ---
Brief Operative Note Date of procedure: 02/29/24 Pre-op diagnosis general: iup at 39wks, previous c/s, desires permanent steril ization Post-op diagnosis: same as pre-op Procedure: NAME OF PROCEDURE: [ section with bilateral salpingectomy ] PROCEDURE: Patient was taken back to the Operating Room where she was given a spinal anesthesia with Duramorph without difficulty. She was prepped and draped in the normal sterile fashion. A Pfannenstiel skin incision was then made 2?cm above the symphysis pubis and carried down to underlying rectus fascia using a Bovie. The fascia was incised in the midline and extended laterally using Nava scissors. Two Qamar clamps were placed on the superior aspect of the fascia and dissected off the underlying rectus muscles. The same was performed on the inferior aspect as well. The muscles were then in the midline. Peritoneum was identified and entered bluntly. The peritoneum was then extended superiorly and inferiorly with good visualization of the bladder. The bladder blade was inserted. Vesicouterine peritoneum was identified, tented up, and entered with Metzenbaum scissors. A bladder flap was then created digitally. The bladder blade was reinserted. A low transverse incision was made on the patie nt's uterus and extended laterally digitally. The was then delivered atraumatically after the bladder blade was removed in the cephalic position. The cord was clamped and cut. Cord blood was obtained. The infant was handed off to awaiting team. The patient's placenta was spontaneously delivered. The uterus was then exteriorized. The uterus was cleared of all clots and debris. The bladder blade was reinserted. The patient's uterine incision was closed using #0 Vicryl in a running lock fashion. Excellent hemostasis was assured.? The rt tube was identified and grasped with babock, the ligasure was used to transect and ligate the tube in its entirity, this was done on the contralateral side as well. The uterus was then returned to the patient's abdomen. The patient's abdomen was copiously irrigated using warm saline. Peritoneal gutters were cleared of all clots and debris. Again excellent hemostasis was assured. The patient's fascia was closed using #0 Vicryl in a running fashion. The patient's skin was closed using 4-0 Vicryl subcuticularly. The patient tolerated the procedure well. Sponge, lap, and needle counts were correct x2. The patient was taken to the Recovery Room in stable condition. Anesthesia: spinal Surgeon: John Wilson Janitorial Account Manager: Miranda Sneed Estimated blood loss (mL): 575 Pathology: none sent Condition: stable Disposition: PACU
--- NOTE | 2024-02-29 09:15 | P.OBPRC_ITS ---
Procedure Pre-op/Post-op diagnoses: Pre-Op/Post-Op Diagnoses Operation Date: 02/29/24 07:30 <No data on this case meets the specified criteria> Procedure: Procedures Operation Date: 02/29/24 07:30 Actual Procedure Side Surgeon p repeat with salpingectomy Not Applicable John Wilson DO Herbicide Service Sales Representative: Miranda Sneed Estimated blood loss (mL): 575 Disposition: PACU Anesthesia type: Spinal
[2024-02-29] MEDS: KETOROLAC TROMETHAMINE 30 MG/ML VIAL IVP ×3 (10:11→23:47)
[2024-02-29] MEDS: OXYTOCIN/0.9 % SODIUM CHLORIDE 20 UNITS/1,000 ML PLAST..BAG 125 UNIT IV (10:32)
--- NOTE | 2024-02-29 15:49 | PC.NURSE ---
pabon catheter removed. patient tolerated well.
[2024-02-29] MEDS: ENOXAPARIN SODIUM 40 MG/0.4 ML SYRINGE SUBQ (23:47)
[2024-03-01 05:10] VITALS: BP 110/59; PULSE 71; TEMP 36.6
[2024-03-01 05:57] LABS: Basophils Absolute Auto 0.1 10^3/uL (0.0-0.1); Basophils Percent Auto 0.4 % (0.2-2.0); Eosinophils Absolute Auto 0.2 10^3/uL (0.0-0.7); Eosinophils Percent Auto 1.1 % (0.9-7.0); Hematocrit 28.8 % (36.0-48.0); Hemoglobin 9.4 g/dL (12.0-16.0); Immature Granulocytes Abs Auto 0.11 10^3/uL (0.00-0.03); Immature Granulocytes Pct Auto 0.7 % (0.0-0.5); Lymphocytes Absolute Auto 2.7 10^3/uL (1.2-3.8); Lymphocytes Percent Auto 17.9 % (20.5-60.0); Mean Corpuscular HGB Conc 32.6 g/dL (29.9-35.2); Mean Corpuscular Hemoglobin 30.5 pg (26.7-34.0); Mean Corpuscular Volume 93.5 fL (81.0-99.0); Mean Platelet Volume 11.1 fL (9.5-13.5); Monocytes Absolute Auto 1.3 10^3/uL (0.3-0.8); Monocytes Percent Auto 8.3 % (1.7-12.0); Neutrophils Absolute Auto 10.8 10^3/uL (1.4-6.5); Neutrophils Percent Auto 71.6 % (43.0-75.0); Platelet Count 156 10^3/uL (150-450); Red Blood Count 3.08 10^6/uL (4.20-5.40); Red Cell Distribution Width 13.4 % (11.0-15.0); White Blood Count 15.1 10^3/uL (4.0-11.0)
[2024-03-01 07:33] VITALS: BP 117/71; PULSE 80; TEMP 36.2
[2024-03-01] MEDS: KETOROLAC TROMETHAMINE 30 MG/ML VIAL IVP ×2 (07:34→16:12)
--- NOTE | 2024-03-01 10:02 | P.OBPN_ITS ---
OB - PN: Subj Subjective Patient comments: no complaints, pain well controlled and tolerating diet Clarkrange status: doing well Exam Narrative Exam Narrative: no complaints Constitutional Vital Signs, click to edit/add: Last Vital Signs Temp 97.9 F 03/01/24 05:10 Pulse 80 03/01/24 07:33 Resp 16 03/01/24 05:10 BP 117/71 03/01/24 07:33 Pulse Ox 97 02/29/24 10:21 O2 Del Method Room Air 03/01/24 05:10 Documenting provider has reviewed patient's vital signs: yes Common normals: no apparent distress GI Common normals: soft to palpation Inspection: normal to inspection Other: Fundus firm below umbilicus Incision - dry and intact with steri strips Other: minimal bleeding Extremity Common normals: no calf tenderness Results Labs Labs: Short CBC 03/01/24 Range/Units 05:45 WBC 15.1 H (4.0-11.0) 10^3/uL Hgb 9.4 L (12.0-16.0) g/dL Hct 28.8 L (36.0-48.0) % Plt Count 156 (150-450) 10^3/uL Urinary Catheter Management Urinary Catheter Management Urethral: Cath placed during this visit: no OB - PN: A/P Assessment and Plan (1) Term : Plan Term - delivered Plan - day: 1 Plan: routine postop care Comment: doing well Time Spent with Patient Time: Total time spent is greater than 50% in coordination of care (as documented) at patient's floor/unit and/or counseling patient: Total time spent with greater than 50% in coordination of care (as documented) at patient's floor/unit and/or counseling patient: less than 15 minutes
[2024-03-01 16:00] VITALS: BP 128/65; PULSE 80; TEMP 36.7
[2024-03-01 16:03] VITALS: BP 128/65; PULSE 80
[2024-03-01] MEDS: DOCUSATE SODIUM 100 MG CAPSULE PO (21:47)
[2024-03-02 00:23] VITALS: BP 121/68; PULSE 86
[2024-03-02] MEDS: KETOROLAC TROMETHAMINE 30 MG/ML VIAL IVP (00:23)
[2024-03-02] MEDS: ENOXAPARIN SODIUM 40 MG/0.4 ML SYRINGE SUBQ (00:24)
--- NOTE | 2024-03-02 07:39 | PM.OBPN ---
OB - PN: Subj Subjective Interval history: Ready to go home Patient comments: no complaints infant status: doing well Exam Constitutional Vital Signs, click to edit/add: Last Vital Signs Temp 98.1 F 03/01/24 16:00 Pulse 86 03/02/24 00:23 Resp 18 03/02/24 00:22 BP 121/68 03/02/24 00:23 Pulse Ox 97 02/29/24 10:21 O2 Del Method Room Air 03/02/24 00:22 Documenting provider has reviewed patient's vital signs: yes Common normals: no apparent distress GI Inspection: normal to inspection Other: Fundus - firm below umbilicus Incision - dry, no erythema, 3cm separation of skin at right corner, no active draining/induration/erythema - patient counseled, precautions reviewed Other: minimal bleeding Urinary Catheter Management Urinary Catheter Management Urethral: Cath placed during this visit: no OB - PN: A/P Assessment and Plan (1) Term : Assessment and Plan: home Plan - day: 2 Plan: routine postop care and discharge home Comment: Follow up as scheduled Time Spent with Patient Time: Total time spent is greater than 50% in coordination of care (as documented) at patient's floor/unit and/or counseling patient: Total time spent with greater than 50% in coordination of care (as documented) at patient's floor/unit and/or counseling patient: less than 15 minutes
--- NOTE | 2024-03-02 07:41 | PM.OBDS ---
DS: Providers Provider Date of admission: 02/29/24 05:32 Primary care physician: KELSEY BOURGEOIS Admitting clinician: John Wilson Attending physician on admission: John Wilson Consults: 02/29/24 Consult to Anesthesiology Routine Consulting Provider: Cyril Ferrer II Reason for consultation: c/section Attending physician on discharge: John Wilson Discharging clinician: Lucia Valera Anticipated date of discharge: 03/02/24 DS: Diagnosis Discharge Diagnosis (1) Term : Plan Home OB - DS: Summary Peripartum Data - Procedures: Procedures Operation Date: 02/29/24 07:30 Actual Procedure Side Surgeon p repeat with salpingectomy Not Applicable John Wilson DO Peripartum Data - Vaginal Delivery Procedures: Procedures Operation Date: 02/29/24 07:30 Actual Procedure Side Surgeon p repeat with salpingectomy Not Applicable John Wilson DO Complications complications: none Infant Delivery method: section Gender: male Discharge plan: home Status at Discharge Functional status at discharge: independent ambulation Overall status at discharge: patient is progressing back to baseline Time Spent with Patient Time attestation: Total time spent providing and/or coordinating discharge services: Time spent: less than 30 minutes Exam Constitutional Vital Signs, click to edit/add: Last Vital Signs Temp 98.1 F 03/01/24 16:00 Pulse 86 03/02/24 00:23 Resp 18 03/02/24 00:22 BP 121/68 03/02/24 00:23 Pulse Ox 97 02/29/24 10:21 O2 Del Method Room Air 03/02/24 00:22 Discharge Plan Discharge Disposition: Home, Self-Care Condition: Good Discharge Medications: Discontinued ondansetron 4 mg tablet,disintegrating 4 mg PO Q6H PRN (Reason: nausea and vomiting) Qty: 20 0RF cephalexin 500 mg capsule 500 mg PO QID 10 Days Qty: 40 0RF Activity: resume usual activities as tolerated Diet: advance to your usual diet Print Language: Moldovan Activity Restrictions/Additional Instructions: nothing per vagina for 6 weeks Forms: Portal Instructions Follow Up Appointments: as scheduled
[2024-03-02 11:04] VITALS: BP 125/73; PULSE 86
[2024-03-02] MEDS: DOCUSATE SODIUM 100 MG CAPSULE PO (14:12)
[2024-03-02] MEDS: IBUPROFEN 400 MG TABLET 800 MG PO (14:12)
--- OUTSIDE RECORDS SUMMARY | 2024-03-10 12:09 | XMS_ITS ---
Patient Summarization (C-CDA 2.1 CCD) Created on: March 10, 2024 DARLINE FALCON : 2000 Sex: Female Author Organization Sample organization Care Team Providers Care Director Of Retail Name Role Phone REQUEST, DR SHERMAN LISTED Primary Care Unavaila ble KATIE ., DR HARKINS Attending Unavailable KATIE ., DR HARKINS Admitting Unavailable KARASIK ., DR COLEMAN Consulting Unavailabl e KARASIK ., DR COLEMAN Admitting Unavailabl e KARASIK ., DR COLEMAN Attending Unavailabl e REQUEST, DR NONE LISTED Primary Care Unavaila ble KARASIK ., DR COLEMAN Admitting Unavailabl e KARASIK ., DR COLEMAN Attending Unavailabl e KARASIK ., DR COLEMAN Consulting Unavailabl e REQUEST, DR NONE LISTED Primary Care Unavaila ble KATIE ., DR HARKINS Consulting Unavailable ZIEBER, DR MELITA Rivas Consulting Unavailable REQUEST, DR WHITAKER LISTED Primary Care Unavaila ble KATIE ., DR HARKINS Admitting Unavailable KATIE ., DR HARKINS Attending Unavailable REQUEST, DR WHITAKER LISTED Primary Care Unavaila ble KATIE ., DR HARKINS Attending Unavailable KATIE ., DR HARKINS Consulting Unavailable KATIE ., DR HARKINS Admitting Unavailable KATIE ., DR HARKINS Consulting Unavailable KATIE ., DR HARKINS Admitting Unavailable REQUEST, NONE LISTED Primary Care Unavaila ble KATIE ., DR HARKINS Attending Unavailable ZIEBER, DR MELITA Rivas Consulting Unavailable REQUEST, DR WHITAKER LISTED Primary Care Unavaila ble KATIE ., DR HARKINS Attending Unavailable KATIE ., DR HARKINS Consulting Unavailable KATIE ., DR HARKINS Admitting Unavailable KATIE ., DR HARKINS Attending Unavailable KATIE ., DR HARKINS Consulting Unavailable KATIE ., DR HARKINS Admitting Unavailable ZIEBER, DR MELITA Rivas Consulting Unavailable KATIE ., DR HARKINS Attending Unavailable KATIE ., DR HARKINS Consulting Unavailable KATIE ., DR HARKINS Admitting Unavailable REQUEST, DR NONE LISTED Primary Care Unavaila ble KATIE ., DR HARKINS Attending Unavailable KATIE ., DR HARKINS Admitting Unavailable WEST, DR ELIAS Saenz Consulting Unavailable KATIE ., DR HARKINS Consulting Unavailable KATIE ., DR HARKINS Consulting Unavailable REQUEST, DR NONE LISTED Primary Care Unavaila ble KATIE ., DR HARKINS Attending Unavailable KATIE ., DR HARKINS Admitting Unavailable KATIE ., DR HARKINS Consulting Unavailable REQUEST, DR NONE LISTED Primary Care Unavaila ble KATIE ., DR HARKINS Admitting Unavailable KATIE ., DR HARKINS Attending Unavailable ZIEBER, DR MELITA Rivas Consulting Unavailable KATIE ., DR HARKINS Attending Unavailable KATIE ., DR HARKINS Consulting Unavailable REQUEST, DR NONE LISTED Primary Care Unavaila ble KATIE ., DR HARKINS Admitting Unavailable REQUEST, DR NONE LISTED Primary Care Unavaila ble KATIE ., DR HARKINS Consulting Unavailable KATIE ., DR HARKINS Admitting Unavailable KATIE ., DR HARKINS Attending Unavailable KARASIK ., DR COLEMAN Consulting Unavailabl e KARASIK ., DR COLEMAN Admitting Unavailabl e KARASIK ., DR COLEMAN Attending Unavailabl e REQUEST, DR NONE LISTED Primary Care Unavaila ble WEST, DR ELIAS Saenz Consulting Unavailable KATIE ., DR HARKINS Consulting Unavailable KATIE ., DR HARKINS Attending Unavailable KATIE ., DR HARKINS Consulting Unavailable KATIE ., DR HARKINS Admitting Unavailable KATIE ., DR HARKINS Attending Unavailable KATIE ., DR HARKINS Consulting Unavailable KATIE ., DR HARKINS Admitting Unavailable KATIE ., DR HARKINS Attending Unavailable KATIE ., DR HARKINS Consulting Unavailable REQUEST, DR NONE LISTED Primary Care Unavaila ble KATIE ., DR HARKINS Admitting Unavailable DBOUK, STEFF Consulting Unavailable FLORENTINO BOWEN Consulting Unavailable KATIE ., DR HARKINS Procedure Practitioner Unavail able PETER RODAS Consulting Unavailable REQUEST, DR NONE LISTED Primary Care Unavaila ble KARASIK ., DR COLEMAN Consulting Unavailabl e KARASIK ., DR COLEMAN Admitting Unavailabl e KARASIK ., DR COLEMAN Attending Unavailabl e KATIE ., DR HARKINS Consulting Unavailable REQUEST, DR NONE LISTED Primary Care Unavaila ble KARASIK ., DR COLEMAN Admitting Unavailabl e KARASIK ., DR COLEMAN Attending Unavailabl e KARASIK ., DR COLEMAN Consulting Unavailabl e KATIE ., DR HARKINS Consulting Unavailable KATIE ., DR HARKINS Attending Unavailable REQUEST, DR NONE LISTED Primary Care Unavaila ble KATIE ., DR HARKINS Admitting Unavailable KATIE ., DR HARKINS Attending Unavailable REQUEST, DR NONE LISTED Primary Care Unavaila ble KATIE ., DR HARKINS Admitting Unavailable KATIE ., DR HARKINS Attending Unavailable KATIE ., DR HARKINS Consulting Unavailable KATIE ., DR HARKINS Admitting Unavailable REQUEST, DR NONE LISTED Primary Care Unavaila ble ZIEBER, DR MELITA Rivas Consulting Unavailable KATIE ., DR HARKINS Admitting Unavailable KATIE ., DR HARKINS Attending Unavailable WEST, DR ELIAS Saenz Consulting Unavailable REQUEST, NONE LISTED Primary Care Unavaila ble KATIE ., DR HARKINS Consulting Unavailable REQUEST, DR NONE LISTED Primary Care Unavaila ble KATIE ., DR HARKINS Admitting Unavailable KATIE ., DR HARKINS Attending Unavailable WEST, DR ELIAS Saenz Consulting Unavailable KATIE ., DR HARKINS Consulting Unavailable REQUEST, DR NONE LISTED Primary Care Unavaila ble KATIE ., DR HARKINS Attending Unavailable KATIE ., DR HARKINS Consulting Unavailable KATIE ., DR HARKINS Admitting Unavailable Madhavi Bustamante Primary Care Physician Madhavi Bustamante Referring Unavailable Madhavi Bustamante Attending Unavailable Madhavi Bustamante Admitting Unavailable Yash Medina Attending Unavailable Yash Medina Attending Unavailable DO Angus Benedict Attending Provider [phone] MD Madhavi Bustamante Primary Care Provider Unavaila ble Unavailable Primary Care Provider Unavailabl e KATIE, JOHN R Referring Unavailable KATIE, JOHN R Referring Unavailable KATIE, JOHN R Referring Unavailable DECKER, VERONA Attending Unavailable KATIE, JOHN R Referring Unavailable JAMAR, VERONA Referring Unavailable Madhavi Bustamante Primary Care Unavailable Angus Benedict Admitting Unavailable Angus Benedict Attending Unavailable John Wilson Admitting Unavailable John Wilson Attending Unavailable Madhavi Bustamante Primary Care Unavailable Angus Benedict Admitting Unavailable Angus Benedict Attending Unavailable KATIE, JOHN Attending Unavailable BALWINDER, SLOANE Attending Unavailable KATIE, JOHN Attending Unavailable BALWINDER, SLOANE Attending Unavailable KATIE, JOHN Attending Unavailable KATIE, JOHN Attending Unavailable KATIE, JOHN Attending Unavailable KATIE, JOHN Attending Unavailable KATIE, JOHN Attending Unavailable KATIE, JOHN Attending Unavailable KATIE, JOHN Attending Unavailable KATIE, JOHN Attending Unavailable KATIE, JOHN Attending Unavailable Encounters Encounter Date Encounter Type Care Provider Facility Start: 03-05-2024 End: 03-05-2024 ambulatory JOHN KATIE Not Available Start: 02-29-2024 End: 02-29-2024 ambulatory John Katie Facility:[facility] Start: 02-20-2024 End: 02-20-2024 ambulatory JOHN KATIE Not Available Start: 02-12-2024 End: 02-12-2024 ambulatory JOHN KATIE Not Available Start: 02-06-2024 End: 02-06-2024 ambulatory JOHN KATIE Not Available Start: 01-30-2024 End: 01-30-2024 ambulatory JOHN KATIE Not Available Start: 01-16-2024 End: 01-16-2024 ambulatory JOHN KATIE Not Available Start: 01-11-2024 End: 01-12-2024 ambulatory JOHN R [facility] Start: 01-03-2024 End: 01-03-2024 ambulatory JOHN KATIE Not Available Start: 12-20-2023 End: 12-20-2023 ambulatory JOHN KATIE Not Available Start: 11-22-2023 End: 11-22-2023 ambulatory SLOANE BRITT Not Available Start: 11-16-2023 End: 11-17-2023 ambulatory JOHN R [facility] Start: 10-25-2023 End: 10-25-2023 ambulatory JOHN KATIE Not Available Start: 10-19-2023 Orders Only [facility] r[facility]- Medicine at [facility] Comment on above: Abnormal thyroid fun ction test (Primary Dx); Pyelectasis of fetus on ultrasound Start: 10-18-2023 End: 10-19-[address] [facility] Start: 10-18-2023 End: 10-18-2023 ambulatory JOHN R KATIE [facility] Start: 10-18-2023 End: 10-18-2023 Office consultation new/estab patient 60 min Verona Decker MD Work Phone: Maternal- Medicine at [facility] Comment on above: 20 weeks gestation o f (Primary Dx); Abnormal thyroid function test; Bipolar affective disorder, remission status unspecified ([facility]); Depression affecting ; Pyelectasis of fetus on ultrasound Start: 09-26-2023 End: 09-26-2023 ambulatory SLOANE BRITT Not Available Start: 09-24-2023 Chart abstracting Verona Decker MD Work Phone: Maternal- Medicine at [facility] Start: 08-28-2023 End: 08-28-2023 ambulatory JOHN KATIE Not Available Start: 08-09-2023 End: 08-09-2023 ambulatory JOHN KATIE Not Available Start: 08-03-2023 End: 08-03-2023 ambulatory JOHN KATIE Not Available Start: 03-19-2023 End: 03-19-2023 ambulatory Madhavi Bustamante Facility:[facility] Start: 03-05-2023 End: 03-05-2023 Patient encounter procedure MD Madhavi Bustamante [facility] Work Phone: Start: 03-05-2023 End: 03-05-2023 ambulatory MD Madhavi Bustamante [facility] Work Phone: Start: 01-11-2023 End: 01-11-2023 Emergency department patient visit Yash Medina [place] [place]: 01-11-2023 End: 01-11-2023 Emergency department patient visit Yash Medina [facility] Start: 12-07-2022 End: 12-08-2022 Emergency department patient visit Yash Medina [place] [place]: 12-07-2022 End: 12-07-2022 Emergency department patient visit Yash Medina [facility] Start: 12-04-2022 End: 12-05-2022 ambulatory Madhavi Manjit Dianna [place] Start: 12-04-2022 End: 12-04-2022 Patient encounter procedure Madhavi Bustamante [facility] Start: 10-24-2022 End: 10-24-[address] JOHN IWLSON . Facility: Start: 06-14-[address] NONE [...] f41.1, # 30 tab(s), Refills(s) 2, Pharmacy: [facility]/pharmacy #[id number], 168, cm, 05/19/20 1:25:00 EDT, Height/Length Dosing, 90, kg, 09/16/20 1:25:00 EDT, Weight Dosing Start Date: 06/17/20 Status: Ordered dicyclomine hydrochloride 10 mg oral capsule (1 source) Anticholinergic Start: 12-07-2022 End: 12-14-2022 take 1 capsule by mouth four times daily as needed for pain Bentyl 10 mg Cap 10 mg = 1 cap(s), Oral, QID, PRN Pain, X 7 day(s), # 28 cap(s), Refills(s) 0, Pharmacy: [facility]/pharmacy #[id number], 167.6, cm, 12/07/22 21:32:00 EDT, Height/Length [...] Daily, # 30 tab(s), Refills(s) 5, Pharmacy: [facility]/pharmacy #[id number], 168, cm, 05/19/20 1:25:00 EDT, Height/Length Dosing, 90, kg, 05/19/20 1:25:00 EDT, Weight Dosing Start Date: 06/17/20 Status: Ordered levonorgestrel 0.066958 mg/hr intrauterine system (4 sources) Progestin, Progestin-containing [...] BID, # 60 tab(s), Refills(s) 5, Pharmacy: [facility]/pharmacy #[id number], 168, cm, 05/19/20 1:25:00 EDT, Height/Length [...] Pain, # 20 tab(s), Refills(s) 0, Pharmacy: [facility]/pharmacy #[id number], 168, cm, 05/07/21 16:26:00 EDT, Height/Length Dosing, 80, kg, 05/07/21 16:26:00 EDT, Weight Dosing Start Date: 05/07/21 Status: Ordered Start: 05-19-2020 take 1 tablet by maribell th twice daily Naprosyn 500 mg Tab 500 mg = 1 tab(s), Oral, BID, # 20 tab(s), Refills(s) 0, Pharmacy: [facility]/pharmacy #[id number], 168, cm, 05/19/20 1:25:00 EDT, Height/Length [...] day(s), # 12 tab(s), Refills(s) 0, Pharmacy: [facility]/pharmacy #[id number], 167.6, cm, 12/07/22 21:32:00 EDT, Height/Length [...] Daily, # 30 tab(s), Refills(s) 5, Pharmacy: [facility]/pharmacy #[id number], 168, cm, 05/19/20 1:25:00 EDT, Height/Length Dosing, 90, kg, 05/19/20 1:25:00 EDT, Weight Dosing Start Date: 06/17/20 Status: Ordered Payers Date Payer Category Payer Self-pay 2022 Unknown [id number] 2019 Private Health Insurance 2000 Unknown [id number] 2.16.84 0.1.554876.3.579.2.593 2000 Unknown [id number] 2.16.84 0.1.248727.3.579.2.593 2000 Unknown [id number] 2.16.84 0.1.728548.3.579.2.593 2000 Unknown [id number] 2.16.84 0.1.311876.3.579.2.593 2000 Unknown [id number] 2.16.84 0.1.966828.3.579.2.593 2000 Unknown [id number] 2.16.84 0.1.023728.3.579.2.593 2000 Unknown [id number] 2.16.84 0.1.778424.3.579.2.593 2000 Unknown [id number] 2.16.84 0.1.003834.3.579.2.593 2000 Unknown [id number] 2.16.84 0.1.834241.3.579.2.593 2000 Unknown [id number] 2.16.84 0.1.306393.3.579.2.593 2000 Unknown [id number] 2.16.84 0.1.343779.3.579.2.593 2000 Unknown [id number] 2.16.84 0.1.810286.3.579.2.593 2000 Unknown [id number] 2.16.84 0.1.836354.3.579.2.593 2000 Unknown [id number] 2.16.84 0.1.974777.3.579.2.593 2000 Unknown [id number] 2.16.84 0.1.111193.3.579.2.593 2000 Unknown [id number] 2.16.84 0.1.779807.3.579.2.593 2000 Unknown [id number] 2.16.84 0.1.935092.3.579.2.593 2000 Unknown [id number] 2.16.84 0.1.322698.3.579.2.593 2000 Unknown [id number] 2.16.84 0.1.959050.3.579.2.593 2000 Unknown [id number] 2.16.84 0.1.108846.3.579.2.593 2000 Unknown [id number] 2.16.84 0.1.227097.3.579.2.593 2000 Unknown [id number] 2.16.84 0.1.306201.3.579.2.593 2000 Unknown [id number] 2.16.84 0.1.836630.3.579.2.593 2000 Unknown [id number] 2.16.84 0.1.536523.3.579.2.593 2000 Unknown [id number] 2.16.84 0.1.509209.3.579.2.593 2000 Unknown [id number] 2.16.84 0.1.986816.3.579.2.593 2000 Unknown [id number] 2.16.8 40.1.977304.3.579.2.727 2000 Unknown [id number] 2.16.8 40.1.704849.3.579.2.727 2000 Unknown [id number] 2.16.8 40.1.006944.3.579.2.727 2000 Unknown [id number] 2.16.8 40.1.881825.3.579.2.1286 2000 Unknown [id number] 2.16.8 40.1.842574.3.579.2.1286 2000 Unknown [id number] 2.16.8 40.1.199223.3.579.2.1286 2000 Unknown [id number] 2.16.8 40.1.802534.3.579.2.1286 2000 Unknown [id number] 2.16.8 40.1.978653.3.579.2.1286 2000 Unknown [id number] 2.16.84 0.1.657479.3.579.2.1258 2000 Unknown [id number] 2.16.84 0.1.637892.3.579.2.1258 2000 Unknown [id number] 2.16.84 0.1.727283.3.579.2.1258 2000 Unknown [id number] 2.16.84 0.1.828913.3.579.2.1258 2000 Unknown [id number] 2.16.84 0.1.880044.3.579.2.1258 2000 Unknown [id number] 2.16.84 0.1.371883.3.579.2.1258 2000 Unknown [id number] 2.16.84 0.1.404400.3.579.2.1258 2000 Unknown [id number] 2.16.84 0.1.692437.3.579.2.1258 2000 Unknown [id number] 2.16.84 0.1.966362.3.579.2.1258 2000 Unknown [id number] 2.16.84 0.1.005544.3.579.2.1258 2000 Unknown [id number] 2.16.84 0.1.260740.3.579.2.1258 2000 Unknown [id number] 2.16.840 .1.571267.3.579.2.1258 2000 Unknown [id number] 2.16.840 .1.735891.3.579.2.1258 2000 Unknown [id number] 2.16.840 .1.648934.3.579.2.1259 1959 Medicaid [id number] 1959 Private Health Insurance [id number] Self-pay [id number] Unknown [id number] 2.16.8 40.1.265992.3.579.2.531 Unknown [id number] 2.16.8 40.1.624680.3.579.2.531 Unknown [id number] 2.16.8 40.1.577529.3.579.2.531 Plan of Treatment Date Care Activity Detail Author Start: 10-19-2024 End: 10-19-2024 US MFM with or without consult US MFM with or without consult Imaging Routine Abnormal thyroid function test Pyelectasis of fetus on ultrasound Expected: 10/19/2024 (Approximate), Expires: 10/19/2024 Cream[employer]HR Work Phone: Comment on above: Expected: 10/19/2024 (Approximate), Expires: 10/19/2024 Start: 10-18-2024 Adult BMI Screening Adult BMI Screen ing [facility] Start: 10-18-2024 Tobacco Screening Tobacco Screening [facility] Start: 11-16-2023 End: 11-16-2023 Patient encounter procedure 11/16/2023 11:[address] [facility] [address] [place] [phone] [facility] Start: 10-18-2023 End: 10-18-2023 Patient encounter procedure 10/18/2023 10:30 AM EST Office Visit Maternal- Medicine at [facility] [address] [place] [phone] Verona Decker MD [address] [place] [phone] Maternal- Medicine at [facility] Start: 10-18-2023 End: 10-18-2023 Patient encounter procedure 10/18/2023 9:15 AM EST Appointment [facility] [address] [place] [address] [facility] Start: 05-04-2023 Influenza vaccination Influenza Vacc ine [facility] Start: 2021 Screening for malign ant neoplasm of cervix Pap Smear [facility] Start: 2018 Adult BMI Follow Up Plan Adult BMI Follow Up Plan [facility] Start: 2018 Adult BMI Screening Adult BMI Screen ing [facility] Start: 2012 Depression Screening Depression Scre ening [facility] Start: 2012 Tobacco Screening Tobacco Screening [facility] Start: 2011 DTaP,Tdap and Td Vaccines (6 - Tdap) DTaP,Tdap and Td Vaccines (6 - Tdap) [facility] Start: 2000 Screening for Chlamy shreyas trachomatis Chlamydia Screening [facility] Problems Active Problems Problem Classification Problem Date Documented Date Episodic/Chronic Anxiety disorders (4 sources) Anxiety disorder, unspecified; Translations: [Generalized anxiety disorder] Onset: 06-19-2022 11-24-2019 Chronic Immunizations and screening for infectious disease (6 [...] Problem Classification Problem Date Documented Date Episodic/Chronic Biliary tract disease (2 sources) Cholelithiasis without obstruction; Translations: [Calculus of gallbladder without cholecystitis without obstruction] Onset: 12-07-2022 Episodic Contraceptive and procreative management (3 sources) Contraception [...] Test Name Value Interpretation Reference Range Facility [facility] 02-29-2024 L Specimen: [id number] Received: 02/29/24 Status: JULIEN Weldon Num: [id number] Spec Type: Surgical Subm Dr: John Wilson Tissues: A Fallopian Tube - Sterilization (BILATERAL FT) Procedures: HE/2, Gross/Micro L2 Age/ Patient Sex Location Account Attending Physician Darline Falcon 23/ LABELL [id number] John Wilson SPEC NUM: [id number] RECD: 02/29/24 STATUS: JULIEN WELDON NUM: [id number] CLAY: 02/29/24- SUBM DR: John Wilson ENTERED: 02/29/[address]: Esteban,Lab SPEC TYPE: Surgical DEPT: KAYLEE HOROWITZ ORDERED: HE/2, Gross/Micro L2 ORDERED: HE/2, Gross/Micro L2 Pathological Diagnosis Bilateral fallopian tubes, bilateral salpingectomy: -Bilateral and intact fimbriated fallopian tubes without significant histopathological findings Clinical Information Previous section, desires sterilization. Gross Description Received in formalin labeled with the patient's name, date of and bilateral fallopian tubes are 2 undesignated fimbriated fallopian tubes assigned as #1 and #2. Each tube is covered by vergara-purple serosa. Tube #1 measures 9.2 cm in length by 0.4-0.6 cm in diameter and tube #2 measures 8.5 cm in length by 0.3-0.7 cm in diameter. Cut sections for each tube demonstrate an intact luminal center lined by unremarkable vergara mucosa. Cigarette Filter Inspector sections of each tube are submitted in A1 (tube #1) and A2 (tube #2). TW -------- Specimen: [id number] Received: 02/29/24 Status: JULIEN Weldon Num: [id number] Spec Type: Surgical Subm Dr: John Wilson Tissues: A Fallopian Tube - Sterilization (BILATERAL FT) Procedures: HE/2, Gross/Micro L2 -------- Patient: Darline Falcon [id number] (Continued) -------- Specimen: [id number] Received: 02/29/24 (Continued) Signed (signature on file) Gloria Bettencourt MD 03/03/242024 -------- Specimen: [id number] Received: 02/29/24 Status: JULIEN Weldon Num: [id number] Spec Type: Surgical Subm Dr: John Wilson Tissues: A Fallopian Tube - Sterilization (BILATERAL FT) Procedures: HE/2, Saranya/Ariel L2 -------- Patient: Darline Falcon [id number] (Continued) -------- Specimen: [id number] Received: 02/29/24 (Continued) CPT Codes 80687 -------- -------- Specimen: [id number] Received: 02/29/24 Status: JULIEN Weldon Num: [id number] Spec Type: Surgical Subm Dr: John Myrick: A Fallopian Tube - Sterilization (BILATERAL FT) Procedures: 2, Saranya/Ariel L2 -------- Patient: Darline Falcon Matthew [id number] (Continued) -------- Signed (signature on file) Chin-Efren Bettencourt MD 03/03/242024 Normal [facility] THYROID PROFILEon 10-18-2023 Free T4 [Mass/Vol] 0.70 ng/dL Normal 0.61-1.60 [facility] Comment on above: Performed By: #### T HYR #### [facility] ([id number]) [address] [place] [address] TSH 0.72 uIU/mL Normal 0.49-4.67 [facility] Comment on above: Performed By: #### T HYR #### [facility] ([id number]) [address], [address] [place] [address] Thyroid profile includes TSH FT4on 10-18-2023 TSH Qn 0.72 m[IU]/L [facility] Free Cell DNAon 2022 [facility] Alkaline Phosphataseon 03-19 ALP [Catalytic activity/Vol] 71 U/L Normal 34-104 [facility] Comment on above: Performed By: #### B AMAND, LIPASE, SLOANE, ALP #### [address] Amylaseon 03-19-2023 Amylase [Catalytic activity/Vol] 71 U/L Normal 29-103 [facility] Comment on above: Performed By: #### B ILTD, LIPASE, SLOANE, ALP #### [address] Bilirubin, Total and Directo n 03-19-2023 Bilirubin [Mass/Vol] 1.0 mg/dL Normal 0.3-1.0 [facility] Comment on above: Performed By: #### B ILTD, LIPASE, SLOANE, ALP #### [address] Bilirubin,Indirect 0.9 mg/dL Normal [facility] Comment on above: Performed By: #### B ILTD, LIPASE, SLOANE, ALP #### [address] Bilirubin.indirect [Mass/Vol] 0.10 mg/dL Normal 0.03-0.18 [facility] Comment on above: Performed By: #### B ILTD, LIPASE, SLOANE, ALP #### [address] HCG,Urineon 03-19-2023 Beta HCG ( test) Ql (U) Negative Normal [facility] Comment on above: Result Comment: PERF ORMED BY: [address] [place] [address] PATHOLOGIST LABOR REPRESENTATIVE BARBARA FERNANDEZ M.D. Performed By: #### U HCG #### [address] Juan 03-19-2023 L - -------- Specimen: [id number] Received: 03/19/23 Status: JULIEN Weldon Num: [id number] Spec Type: Surgical Subm Dr: Angus Benedict DO Tissues: A Gallbladder (GALLBLADDER) Procedures: HIEN Gross/Micro L3 -------- Age/ Patient Sex Location Account Attending Physician -------- Darline Falcon DE [id number] Angus Benedict DO -------- SPEC NUM: [id number] RECD: 03/19/23 STATUS: JULIEN WELDON NUM: [id number] CLAY: 03/19/[address]: Angus Benedict DO ENTERED: 03/19/23 CLARISA JOHNSTON: EARL TYPE: Surgical DEPT: S ORDERED: HE, Gross/Micro L3 ORDERED: HIEN, Gross/Micro L3 Pathological Diagnosis Gallbladder, cholecystectomy: - Chronic cholecystitis and cholelithiasis - One benign lymph node (0/) Clinical Information Gallstones Gross Description Received in [...] identified with a rubbery, yellow-vergara cut surface. Cigarette Filter Inspector sections are submitted in one cassette labeled A1. -------- Specimen: [id number] Received: 03/19/23 Status: JULIEN Falknichol Num: [id number] Spec Type: Surgical Subm Dr: Angus Benedict DO Tissues: A Gallbladder (GALLBLADDER) Procedures: Saranya STANFORD/Ariel L3 -------- Patient: Darline Falcon [id number] (Continued) -------- Specimen: [id number] Received: 03/19/23 (Continued) Signed (signature on file) Haile Dc MD 03/21/23 1203 -------- Specimen: Received: 03/19/23 Status: JULIEN Shiraz Num: [id number] Spec Type: Surgical Subm Dr: Angus Benedict DO Tissues: A Gallbladder (GALLBLADDER) Procedures: Saranya STANFORD/Ariel L3 -------- Patient: Darline Falcon [id number] (Continued) -------- Specimen: [id number] Received: 03/19/23 (Continued) Microscopic Description One H E slide reviewed. The microscopic examination confirms the diagnosis. CPT Codes 64935 -------- -------- Specimen: [id number] Received: 03/19/23 Status: JULIEN Weldon Num: [id number] Spec Type: Surgical Subm Dr: Angus Benedict DO Tissues: A Gallbladder (GALLBLADDER) Procedures: Saranya [place]/Ariel L3 -------- Patient: Darline Falcon [id number] (Continued) -------- Signed (signature on file) Haile Dc MD 03/21/23 1203 Normal [facility] Lipaseon 03-19-2023 Lipase [Catalytic activity/Vol] 32.0 U/L Normal 11.0-82.0 [facility] Comment on above: Result Comment: PERF ORMED BY: [facility] [address] [id number] PATHOLOGIST LABOR REPRESENTATIVE BARBARA FERNANDEZ M.D. Performed By: #### B ZION COOPER AMY, ALP #### [facility] [address] [id number] [facility] Discharge Instructionson Discharge Instructions [id number] .[id number]:127 Normal [facility] Consent for Treatmenton 01-01 Consent for Treatment [id number] .00CD:127 Normal [facility] ED Clinical Summaryon 2022 ED Clinical Summary [address] [id number] ED Clinical Summary Person Information Name: DARLINE FALCON Mary Beth/[facility] Age: 22 Years : 2000 Sex: Female Language: Urdu PCP: Madhavi Bustamante MD Marital Status: Single Phone: [phone] Visit Id: Visit Reason: Wrist pain-swelling; Hand [...] 01/11/2023 17:05:20 01/11/2023 17:05:20 01/11/2023 17:05:20 ADDRESS: [address] [place] [phone] PHYS DOC NOTES: MEDICAL INFORMATION: Prescriptions Given: [...] With: Address: When: Madhavi Bustamante [address] [place], [place] [id number] Business (1Giv[employer]to In 3 days 01/14/2023 DIAGNOSIS: Finger sprain; Hand contusion Normal [facility] ED Note-Physicianon 01-12-20 ED Note-Physician Basic [...] 3 days 01/14/[address] [place] [address]- Business (1) Additional Instructions: Patient Education Finger Sprain, Adult Contusion Attestation Patient seen and evaluated by the physician dyer assistant. Attending physician was present in the emergency department and supervised care. This visit was performed by both the physician and an APC. I performed all aspects of the MDM as documented. This report was transcribed using voice recognition software. Every effort was made to ensure accuracy, however, inadvertently computerized fittings finisher mistakes may be present. Appropriate healthcare PPE [...] oblique views (more content not included)... Normal [facility] Comment on above: Result Comment: Elec [...] sitting or lying down. Medicines ? Take lfca-tfd-vscxrot and prescription medicines only as told by [...] provider. Document Revised: 07/13/2021 Document Reviewed: 07/13/2021 [employer] Patient Education ? 2022 [employer] Contusion A contusion is a deep [...] any abernathy (more content not included)... Normal [facility] ED Patient Summaryon 0511-2 023 ED Patient Summary [address] [address] Patient Discharge Instructions Person Information Name: DARLINE FALCON Age: 22 Years Arrival Date: 01/11/2023 15:30:18 Discharge Diagnosis: Finger sprain; Hand contusion Primary Care Physician: Madhavi Bustamante MD Provider Information Primary Provider: Yash Medina DO [employer] Journalist:Derek Salcido PA-C The exam and treatment you received in the Emergency Department were for an urgent problem and are not intended as complete care. It is important that you follow up with a doctor, nurse practitioner, or physician?s dyer assistant for ongoing care. If your symptoms [...] With: Address: When: Madhavi [place]ust[place] [place] [address] Business () In 3 days 01/14/2023 In the event that this physician does not participate in your insurance network, please consult with your insurance company to find a nearby participating provider. Patient Education Materials: Finger Sprain, Adult; Contusion A MESSAGE TO ALL PATIENTS REGARDING OPIOIDS PRESCRIPTION OPIOIDS: WHAT YOU NEED TO KNOW Prescription opioids can be used to help relieve egsyahtm-jf-qktpbb pain and are often prescribed following a [...] guidance from the Food and Drug Administration (www.fda.gov/Drugs/Re sourcesForYou). ? Visit www.cdc.gov/drugoverd ose to learn about the risks of opioids abuse and overdose. ? If you believe you may be struggling with addiction, tell your health career orientation teacher and ask for guidance or call [facility]?S National Helpline at 7-159-887-PKZB. (more content not included)... Normal [facility] XR Hand 3+ Views Lefton 01-01 [...] in mGy = na DAP = na Normal [facility] Coding Summary.on 12-12-2022 Coding Summary. CD:[id number] W w+PGhlYWQ+YQ1YPESvU61 cvNTwpM0qR6ZNLHnMAfkx QHVELNvMHqXmctIiQK0wq XNjZXJu IC8+UO0uJOIvCgoeaGZgf 7S2nSS6A89neg5xWDnthR N9HPKtIyCqobpck9zzhSa 6IDcuNmluOyBt XSUjeD63BJW6yD59Cm98u FCmqJXwa5ywyDo5OcNuKH JzHXL9vHecLRpbc6IcKNX gX67suHDjq3C8 IAXvhFwesQPmWuAbwPW2g Z9yENwhhxvwd4ofbchxRv f1no84pXZkx8A4dDX7P5Y qnqH0KXEdiFXk MllsqQUUzR6flziaj8lxx vfkEhFlSPAqZXy6BGi1UP AwgJusMcTpSU31JTY3AYA gfvZiP2XjFXOw dCcwUjZ2y9P8Lw6TL1BZJ hojW3MQBDLIOZtouLO+PC 40ps46J2YdFhujZxu1SBZ vRCU1zFB0oT8y BEAbCPvej8V0vHP5M1Ybm nKcdj5oj1nqGQIgHZwiC6 7qnJUek1B0NVAcfII8ASS ogGapDjFxxV74 Oyc+TKZgqReja4DwDsiaa 5rzy7jvcVx1JnskWIAbkt OtkMdhCTV7x6IkCa5rWGR iwBP8iZJ6sK9g GcEsTtA1QAypQ914GmYqw YIiHzzcP67uT3DurVB+PH ZyDtm3NGEuzNhqOQ8qJ4V hZGRpbmctbGVm bLlvZY0qYATouqtoJZBrh M6kLICxD0b2BuBpSrE7XT nkI2WgCEAfobtlQh58oA3 yYkUeRiV5NMie I9PmfaC2BPBfnLGsYNihL GI4R86gy5L8HDKqWHFrHT N7fXU6tO0nhTecosbogIU mdDsgdmVydGlj LLthLAbsV576TEXcdIpgN kNvZGluZyBEYXRlOiAgMD QvMTEvMjAyMzwvdGQ+PHR fWFS0sNrjXZTo jWMpJOvfHt1imJdyjWbdW Q5nUURxamhhKLQbeN4kUE GxoONfjHixOA1dFGQewrq jv076MoWjXAJ1 GFEltMRsC7KirY5eLtEvV XGrTBSeN7RkmHCfUBnjL1 79TMbuIdV2YJCqwwVmY6F sLWFsaWduOiB0 e4C0Yd5Cw2ZabwagW3Nca WLsAhVhZpexEBv0Y8VxVu wvdHI+XT56YKHiPE14IAd 5ORZ7aRlzJQai ZVSoY6YduM7qLmPxTVLaQ GRkOyc+PHRhYmxlIHdpZH RoPScxMDAlJyBzdHlsZT0 lMw3cRMPoOPDe wRakcZQeIqKlq2dzVMFwM XxjVP0qhZfqH0PlvWZ5FO Rxo8p7Ch73O83eH4XiqHA +TTWjfIP8pBN2 aU2yRvJaWgA2OYmrS205X iDtwRKfXcqdr1dbq0eudG j8CzY3OKAmeuCxwIhsQCG 1f7YoFh03S59o IHdpZHRoPSIxNSUiIHZhb Cbtsb0koR9qGf2+PGNvbC O3nJO9lZ1aHoXmKoW5SUf fN410SrMksWSs Ideps3qiz5ixxUh3DrGeQ BIxdfKcvZvvGWJ8k9AlKb 83L0JfrStvc5XvOmh6cd9 0gXUkt6W6pKT8 J1RvGYQggwezoFUylXvaU L2iAZCtpmgtXGYsoB7wZT XeT0s8EoEuYtB4LEwoP1C gmfV4CCNfxHQg VTDplULOrP9qtkmkv3ati fjaAqKeSRCtPSx9GCi2BT XnhVrtQjEcPYF7DcT0EES 0aJDcyY0wuXlb bjijvR5pOyw+QCQ4hOLoa NEOSY6nSddzvUW+PHRkIH K0hTkoPQvaHJXeuE1yXUL dA7w9KbZaAsH1 QDrkM2WspvI5XSFfbIHzO EZyfVDXaN3pbybax3rzui baNuNwBWNxLUe8KRz0HJH saWduOiBsZWZ0 QuI3JTS6wCNwdC1svBsow oectN7qDia+QmlydGggRG G4ZGf3W7FpEtd7GJRdlCa vSN8fiAObFVtt Bs2fkYpvdUhsCN2iVEMce rqkb763WhPqm9gxECWpeQ IeXBlcNHU7R30dn9U1BVY iRHZuVJY3oMB9 aJ0xpNxybwpaoECsgSouw mKkgLtxUSzoDJciR034HW VwkMvfGvUjYNd5U7JwEdy 7UGMxkOkkFQ3p nWXoCPsnBi7tzLuyvAccT H1xNFJlnqcho300SoFsc3 vyFPWszNOpXBpjKCJ9K93 ou3B9RTUcBARf WOB6eDT4zC1zoPguciyzo GVmdDsgdmVydGljYWwtYW clN859WAEtnHaoEtPakFy 1J6FeIli4NCAr gQpvNZ6ucFQkLEzsZv6ov DajdZqfBN0dALUwaxmed7 44YnJwt9tjPRDuiNYuBUp cWJY2B87gn0O3 UGOwLHWmUPI4bKM1eL3na GlnbjogbGVmdDsgdmVydG nhKAljHDykJ377KGYtnXl nPlBhdGllbnQg WGaoQJn9S0AdHlvnzTC+P R66AQJnCB11fYUxgAQru8 wuaXe6ZkAsRKKtYUF2sTq aLNfnu3PvPVEb I36ggNTnk0S7XTEsjFsjy CWiDaDafMD9uO6cOQlmrf xao9lapdqrWefvj2xntu0 9yB40J78wXXfh ZHRoPSIzMCUiIHZhbGlnb z3imI3vOn7+XXQicGG4mW A5hU6hETOsNzA5VVlnU79 9InRvcCIvPjxj m9bkh6nqxLc7LpZ4ATZrk jVdcGzjNGS0r2EaFi59N5 9sIHdpZHRoPSIyMCUiIHZ hfSvvyd1dnA3p Ii8+WVZxxZT2iYU7aR9iG vQgPwA2XUrjV932FcZpyJ EmDjvkJ37rD4JqgTX+PHR hQno9PRQrcVho QC7ymGXbYYucDw3vWJO6G gAeUuOgDNtgJ2HbWJWbfq tsujnsbSA3VFBzKAWezU3 6Jb2krKakMVXp sKYWoL6fquqaz4ckvyxuV bHuGFFzEVq9IDs9UJFpbP ihBmPuEYB2YyT9BOQ6hUZ vtD3dnPjgaost oR9lW7OwORFhnjkzYg49i Z4oTgOkIfV4DOciFlx+Wk lNTUVSTUFOLCBJVlkgTDw vdGQ+PHRkIHN0 lVrxCMhaPXJjzT8wOPIhA 9t0MqMcLlB2JTtrA4FkBW RitiyqCz43sF5mCaCaQcE 0XMwoK8FuxcB3 ZVNllBFzYIdqYYG4R83nf 0P0ZOSeVMNhTPM1aFG9nF 1hbGlnbjogbGVmdDsgdmV ydGljYWwtYWxp V265BQJgtFyvUaU1JpSzF wPcECG4P3WqTsw6YBSqtZ cdVM5yxWEhGJxvZw4tzYr dsJwmQB6mTNXk edfvUGHrjA4hDNCldIFsx CoqOO2dYWIhdoyvy306Zd KhDJG8NLYwmNDwN9ZftK7 yOiAjMDAwMDAw T9HhlZGiRAosS585EQzpS eF9PZHvskOhP6QeKCDprV ejCxM5q7Z8Pc3iLyLXOZP yczwvdGQ+PHRk AJK0vZyqDUmmRTCuoC7eR AUwQ9u2HvIuAbG1NAxjM2 TxDDHqgppbOs96aR7dIoJ vYoV2PNdkN3Al vxO8LSJdsAOjIYveEUB3K 23vq2A8LKLtXAZpPUB1fH P2fA0fiAkojtpwdOGjoOu gdmVydGljYWwt OCtnG759YPBzyKlePiGyf WFsZTwvdGQ+OXBlYYB9fX gtWXavPJEexE6lWYNyL2i 8OxQiZuM3OPze L0FyIANvozkjRk08kV0rP zCkAvQ5SMctL3YjpvN5BL QdrDVtAKttMHL8B90ma7C 6QMPdNJUrUOB7 rVP6oR0spSqkzhsdaKWvb DsgdmVydGljYWwtYWxpZ2 24JQSwnHfzXxUaWCQkRU4 jeTwvdGQ+PC90 lp99L9SzFnghUag4QCYbM PQ5rJP4xC1nALGkONcfj1 C9cGQ7H2UgubIvbm7xx2e cKNEpRHudD00w kEWgp6C7VGYicKO2BMPft DcoPeYcmL82Ucb+PGNvbG yva9EyViwlh5jaa3vaiEd 9IjMwJSIgdmFs zFwyOYR3n5AxZj25G79iE HdpZHRoPSIzMCUiIHZhbG xuum2pqK0rEk9+PGNvbCB 6tRQ7kO5cQnEh RxK0PQgsO252QlSrtGAiT bzac6zfs3zfbSu7UcYkIJ YufzEvwLifCAS8o3WaIp4 2F2FhjMivw0Bf Bgl4on36hLTmu1F8uFN2W 3BhZGRpbmctbGVmdDogMC 2eZSUxulwlNEIjbI4eQAK jF9h4YmPsZcA1 QHizD4TeszK1ZLDagLLlN RRxoZFCyL3nfagmq4ibft hbDiUvIVOpSOs8NNp3MPR saWduOiBsZWZ0 RjE1KKD1yZBxzV3dyVtur fsqoG0nMra+ZRf0i0akmP XbJO1htXI6XE36DS98nSD wx3N8xBN9I8Rv SOSgtpwvrvqzdRN3RDVzD LRifS83Bs4bgXtaWe3iEN GuBAM2YVVkpMGvB4WbrD8 yOiAjMDAwMDAw X7WcuOSuNAakP670YLncX xF7TRQfziCyA6FpTHZlaD qnHcT1e6R3Kd6IWK31SB0 0IO03sTLam7G6 lTK3O2MbQIZqjxosjhbdm SJ9SXFeMWMozW77Xc3flY uhBu3gLUKrLWP5AAVzgHI pN5IgwD8wIlGy MFGfXYWaE6SdhBOmMTbeD 378IZrlRnP3FPDhpcLwI2 JoKVGdoHydOlM5m3N6Xe7 SLl78GP74MH83 fFFku4K5kNG1C5PaGNRxa onhrecxmOM0MWZlZZOgmU 02Eb8gzKidUf5wDRMkYIS 7IPMzkBZpI4Gp wR2oIzZqEJMtUYKqW2Cmi EAyYOkrW536UFslQiI0EY HfwkDaG9BmPLJmnNxjAoI 5f9H7Vh0WCCjs ztx4Q6FgEypkhOQ+PC90Y YScAD58iYIdxGPsp4nwgC z5AdGvEOTmTXE1mOuqCSp gj8DvASHyK55v hLGld9I3 (more content not included)... Normal [facility] C Urineon 12-09-2022 Bacteria identified Cx Nom (U) Microbiology PROCEDURE: Urine Culture [R1] SOURCE: U CleanCatch BODY SITE: COLLECTED DATE/TIME: 12/07/2022 21:55 EDT RECEIVED DATE/TIME: 12/07/2022 23:03 EDT START DATE/TIME: 12/07/2022 23:03 EDT FREE TEXT SOURCE: Lupis Miller PA-C, PA-C, Kristen N FINAL REPORTS Final Report [] Verified Date/Time: 12/09/2022 07:12 EDT 3,000 cfu/ml Mixed skin contaminants Performing Locations R1: This test was performed at: [facility], [address] [place] [address], [address] , [place], Normal [facility] Comment on above: Performed By: #### 2 [id number], [id number], [id number] ####[facility] [address] [place] [address] BMPon 12-08-2022 Anion gap [Moles/Vol] 9 mmol/L Normal 6-16 [facility] Comment on above: Performed By: #### 2 056838, 1169369, 0137784, 43154405, 4734506, 6890366 ####[address] [place] [address] Calcium [Mass/Vol] 8.9 mg/dL Normal 8.9-11.1 [facility] Comment on above: Performed By: #### 2 277754, 4384189, 3089057, 26801718, 9451992, 6797787 ####[facility] [address] [place] [address] Chloride [Moles/Vol] 104 mmol/L Normal 101-111 [facility] Comment on above: Performed By: #### 2 654638, 6228121, 5337259, 40162720, 7912419, 0532850 ####[facility] [address] [place] [address] CO2 [Moles/Vol] 26 mmol/L Normal 21-[address] [facility] Comment on above: Performed By: #### 2 798196, 8418190, 5634276, 13273388, 9293430, 9316938 ####[facility] [address] [place] [address] Creatinine [Mass/Vol] 0.7 mg/dL Normal 0.5-1.3 [facility] Comment on above: Performed By: #### 2 820317, 4619662, 7261545, 61697898, 3203359, 4911836 ####[facility] [address] [place] [address] Glucose [Mass/Vol] 103 mg/dL Normal 55-199 [facility] Comment on above: Result Comment: If t his glucose result represents a fasting glucose, interpretation should refer to the following reference range: 55-99 mg/dL Performed By: #### 2 501276, 7346893, 7083436, 82819255, 2344042, 8678384 ####[facility] [address] [place] [address] Potassium [Moles/Vol] 3.3 mmol/L Low 3.5-5.3 [facility] Comment on above: Performed By: #### 2 173883, 4276857, 8201784, 53046901, 5530815, 3543052 ####[facility] [address] [place] [address] Sodium [Moles/Vol] 136 mmol/L Normal 135-145 [facility] Comment on above: Performed By: #### 2 778813, 3314588, 6068536, 78773201, 4508367, 8399571 ####[facility] [address] [place] [address] Urea nitrogen [Mass/Vol] 12 mg/dL Normal 5-21 [facility] Comment on above: Performed By: #### 2 757582, 7625774, 7205039, 32418645, 2976581, 2776838 ####[facility] [address] [place] [address] Urea nitrogen/Creatinine [Mass ratio] 17 No Units Normal 10-20 [facility] Comment on above: Performed By: #### 2 140879, 6583232, 5966903, 06847343, 6774072, 7333621 ####[facility] [address] [place] [address] Coding Summary.on 12-08-2022 Coding Summary. CD:[id number] W w+PGhlYWQ+MT2MAXAmZ82 lvUOijN0jT3NVRNgGWdvi FNOVYDmYBsFrbvFuFC3xr XNjZXJu IC8+FV0dTJYvLobkoOPjj 8B7lCG6D42nlu9tSKdrvF K6YMZsCjNmjgoxs2csiKf 6IDcuNmluOyBt XQLccY92GOH5vC31Ci51x RQifZCuh3acxKj0GdBaQS NjXZU8wCarXVqhc6DmHPW sG26yrCJjl6D3 YCQelFopkNQtTfTyvQG3p M6iKKjcgjakb7yehkrfYh o7rm49vPGbd0I6gGM3Q2V qvgU6CCNgtCJe MzoayOAQkK5riexdx1gdu sfaQgHpXJIiEDf1TUl5GQ MpbJzjUaPgET32MXB1JET ryoApZ1EoNYXy lPamWmG6x7L1Ra6CT9GNJ tunA1ESNZKPHYajcHM+PC 30zm53N8SfAxtqAlt8WCE oCHP9yDY1mH2z FPDlETpwx4V6nWO6Z6Xwg qMqea0xy8ioFQJaAOjlR9 4opNWyg6I3AJZnaSR3XJK htBqqTgPqpY81 Oyc+LBMzwIxiu9MqMyaqs 6czb4vgqAt2ByitMMJses DroLbyPTK4k9DiQi3kTIW ybLD9rWN1zZ1o UqMdBuL4FTkqI050SxXws XXoWpouA69xQ6DvdKS+PH NjHwm9TISnhJpaEB7zP3R hZGRpbmctbGVm mZctAS5aUANfzxkxVHRlb E2kFFRoI6l7StInUcE0KD ukA7LsFZAjfgkaQu92nC7 nZsTzUdP9YSjl E0LtryT3ROAqdKUiYZooR DF9B14xs9J0XETvXMKuXY H8vCB5jN6qiKahduscvZZ mdDsgdmVydGlj SEfbOUfuJ866IZLcqJtrR kNvZGluZyBEYXRlOiAgMD QvMDcvMjAyMzwvdGQ+PHR uPRR9qYzaXYHz aMCjUZxxRw4uhWlivCbnJ G3xBLKsbayyYWKlqO2pRK IbhGJptCfaOL3cMULaktv as001CyQwFND6 GYMzsTCuT9MskS5nHfRlJ WSdYNMaI8HliXKvGGjzV1 81HSoeIkW1ETOfvoNuI2R sLWFsaWduOiB0 n5V5Ng3Ch3KghgjrJ4Anp OBnUwAnWfspRJh5I2RiAt wvdHI+JA75DMIvOH03HRd 7TAU2lJoyOSqm MGRrR5SgeN1yIwWzCXPnB GRkOyc+PHRhYmxlIHdpZH RoPScxMDAlJyBzdHlsZT0 hTp8oVMJkVOFt oOfloKSnKzUao5nfTNEfY NqxPB2tuCjiI5LcxHS8WE Hns7j1Vz96S83lN6OpfBJ +CXDgdWP6yQJ3 bA9gYwZzNoM3GRtjO699H oJkjWCxYlaey0ddf9jhiC o1JfR0IDLjqnNkdWqmDOE 7h8GtGt69T24n IHdpZHRoPSIxNSUiIHZhb Thbeu1muI2mMt6+PGNvbC T4xQF2kI2nVhTuFkU0HKy qC118IjSvqINp Tgcab3czz7uhrCi1KhIeI YGsoqFxhGdnHMS9s3OpEp 08L3LrxQsut4JlUuv1nj2 4fBPds2Z8dTY7 R9WqPKAjojwruATwrJoeH V7wARYyvbwkGZQrrP1gWA PcQ5h5HlVvYqJ4BUsgI3Q arrZ0NFXzjYBu ZZKqaFGXvI8mzajhg2unn jjvLfVxIGKoSAi1YSb5KW BwzBzoOxXlCQF4YjM4HAA 0tBAweK3bqVsf sodrmG3iPsd+GBB3zYMnl UXYLQ2kMeltwFU+PHRkIH Z5lVvcPWrsKRGzsL4sZRV aM8n0LhKiFzJ5 ANdlC7UnpkE0EWAelAEpO MBtmWWYeO0czbqtg1lnpa ghBcCvYYAtGUg3MYm3CGO saWduOiBsZWZ0 KyG7KSG6dXQqhU0baZflx bkgeQ6vVng+QmlydGggRG M1RWd3T0XvScw4ZFWmfJg bYE6pvLRsBMok Or1bgJdqlUypZC8hFIRxe fjxp716ByCqk2uvFFKcoL FiPMibQDO0Z95uq1G7FXX vSRZxPPE8gCQ7 pX2ziEzedumueEZcrEals oKnoCraJUxcISwyO930EL YzbXigEiBuJTx1D1MuHzu 6YRRxeWsfWW9k cCXlXPslSe0gcBeazXrmV F8lSWNintbjt354JnTsr8 knIHSozRFiOHqrJKT0K99 pr7N1NIIzBFMf JYW0oBN6yQ5jgRjurmdav GVmdDsgdmVydGljYWwtYW otL105RNBwzGcoRrYiiFp 5W2GySfs2VCUv uVenKI4kzUJtENdxLq2xd QpkdDpqTX9tKVXrxhbee6 83WlLtz7oiFTBftNWpYLi aBVW1M32ay8K9 PZUjHKRiLXI7hGB0zI4ay GlnbjogbGVmdDsgdmVydG euVNgqAWveL802BJUttOu nPlBhdGllbnQg YRjsWOz3D3RjIwsozJG+P I01RWDbXB87pGRqkVMoq5 oddAk6RcFmOGMkNFQ3uXl qJFmej6QxFCBo U62ebJKys6Z2YJOniWvxs NEyIaGgvWG9hG5bOUuyqy zsz7whhbmfEzsvl7wjal8 2tT99Y74kOMkl ZHRoPSIzMCUiIHZhbGlnb z9xrT8tFc1+YYKamEJ3yZ X5zI3cHTTwNpV5UXuuG17 9InRvcCIvPjxj s4oap4xyfRc2NiB6IEQhg aNvbYdmXVC9z3IuXl17B2 9sIHdpZHRoPSIyMCUiIHZ qrZjsov3olC0v Ii8+CGYupOE5lAU7oB7vU gTbPcD1VBgbM598VyLgjP DzWijpN31xF0KcfLN+PHR gMfr9HHUynLhl UX6qlTZdSFzeCc2vYZL1C hErFlAvJAtaU6FjDBOqqi wmltqtfVZ0SGMhHJMgyH7 6To3lbPaxPFRb aYZDnQ8tkfpku3sxqgmrW bOzUXGbVOz5TBq6XSHggR bbFbWmUEO7QgL9RRY8lAH xxG9mtElreobu gD5dR8RiMOAprindBp92o V8oKcMuVcO2LGzaCuy+Wk lNTUVSTUFOLCBJVlkgTDw vdGQ+PHRkIHN0 yDoeTFhdELYilN0tNJGvL 0g9ZeWwEeQ4KSsvN9QnQU IzujypSk55cL1jExZcXeE 2SAqxB1UzevQ4 KXLdyTFwPJeiFIW2Q23fe 4C3JZGzMBAyPAA0zOH3hW 1hbGlnbjogbGVmdDsgdmV ydGljYWwtYWxp A241AOEccXksVjN3YvKxZ mXtCXL3Z8IhYtz5RMGgtM kfKJ2mcOHrEFxmMl2vaUy lfUpmEH5iFYZf oxtsFRPpjA7pIQEdoDSkj GvmKX8zTEYbrrmij260Cn XgGZK0LWQszOMxX6GpjG2 yOiAjMDAwMDAw V3OqhJWrEUsvI786AFauI sQ5ZHFfzlEyP6SzGDCzyK noYzC5k2O0Fg4vIhPTOCR yczwvdGQ+PHRk PSH4hMdnTGhpEPPmpL1yU HWzC4i0GiIaRcU8LVmaJ1 TnFCKvlrwzVo14fF6lWkH uKyH7EUeeI8Fc ghL7CSAloDSdUDdiADC3Z 20tj3S1AJZfCYKvLVU7qJ I8uN8nfZpkqxklxNZhyOa gdmVydGljYWwt KRpaL857BTIbjZwdZuZko WFsZTwvdGQ+THKhDSI3tJ dqNTxxWEDdwP0sQFYfD8c 4LzDvWcY4OBvy Q1MuZWIfruznDs68pM1tH sKkVsP1HHjlP0AzcoG1WN QebDKbQZmeCFH2P95fw3I 1YKSxGWVxNEA9 zGI0cO1vpGwhjpmusIZvh DsgdmVydGljYWwtYWxpZ2 44MZDnvJjbHn40nPJbeSb kitN9I2EiPvtb dHI+UE56QYXfYO76qDKdf YSyx4rsaRd0CgPjTEZkOE V7tAoxUHjii9QvWGLiH21 ckXWjr5Z0NZLo sSovuYYhWgItnKT7yQ0pD Hilnsurs6aonenoTqeed4 guus37uM17C50kEPppKRB oPSIzMCUiIHZh kOmyol0sbK7kWn4+PGNvb YD6nPJ2bS2qChGrMqQ7US xjR810MtNajYZmNqizj4k lz8kimBs7HdDl NYEgfcSsfIgiUTX1t8MpI p91K33wNZbaIQQoTGAuKC KfNDZbrNuent5xvT2vKy0 +QT4ix5istk14 yZ60zLB+YVMwZLY4fEujQ BtjUBLcmU1aQZhjNcL7WD PxIgMnyC69qEUyJEglIw0 vpYnxzExcIV7p HPVcqkpgb040BbBoi4quW CFkqAEsEXebXFS0H25mw5 S8ZJSuRHIaFUA3cOV5bS9 hbGlnbjogbGVm dDsgdmVydGljYWwtYWxpZ 207SIOoeBqhTyUtyGVcU8 temcDSFR9aYptcnZL+PHR xWXD7dCvmBYsn WCWspP3wHWRiG0t2GqMuF sE3NOwlV1TlavW1WRRsoZ HqRXMcuVDNdF7rrtafw7c vcjogIzAwMDAw MSq3AHo1JRKqvTvxFzEvV KS6FlE5KIS5xLQmdW2tnB upovcwwX7bGef+RklOOjw vdGQ+PHRkIHN0 qMpwXIzkQPJypB7kHDNoP 9l4KbIhIuI1JGypW9Efzs S2GOTjuOXzRTCljSVHxL1 stakdj5hibdmo FgAwSIGgYKk6UTf7LGAir CswEeGjQHA4CnZ6JYL2tZ KgwC4hqRspllxlrX4rKwt +TVJOOjwvdGQ+ LKMgOMQ6gEmsBAqzNOXpd K0sUOLhG1g0KtUuSwN5BU ldI9AnevV5RDXlkMZiRUM byLCOsY6rdwaq m8aqnzwxWxTnAFSiGTn5L Mt0WPInlVorRoZzHTC6Ci W6AVT5mNNgkD9zdJflcjb cqE8jIjv+UGF5 DMA6MQ00GV28R6ByJqrcf GFibGU+PHRhYmxlIHdpZH RoPScxMDAlJyBzdHlsZT0 kTa4zMXNrVELc bGxhcHNl (more content not included)... Normal [facility] Discharge Instructionson Discharge Instructions [id number] Normal [facility] ED Clinical Summaryon 2022 ED Clinical Summary [place] [id number] ED Clinical Summary Person Information Name: DARLINE FALCON Mary Beth/[facility] Age: 22 Years : 2000 Sex: Female Language: Urdu PCP: Madhavi Bustamante MD Marital Status: Single Phone: [phone] Visit Id: Visit Reason: Nausea; Abdominal pain; [...] 12/07/2022 23:48:57 12/07/2022 23:48:57 12/07/2022 23:48:57 ADDRESS: [address] [place] [id number] PHYS DOC NOTES: MEDICAL INFORMATION: Prescriptions Given: New Medications [facility]/pharmacy #[id number], [address] [place], [place] [id number], [phone] dicyclomine (Bentyl 10 mg Cap) 1 Capsules By Mouth 4 times a day as needed Pain for 7 Days. Refills: 0. Medications to Continue Taking That Have Changed [facility]/pharmacy #[id number], [address] [place], [place] [id number], [phone] START: ondansetron (Zofran 4 mg Tab) 1 [...] Cholelithiasis Follow up: With: Address: When: Fernando Benavidescecyjorgito [address], [address] [place], [place] [phone] Business (1) In 3 days 12/10/2022 Comments: General surgeon in [place] With: Address: When: Willie LOZADA [address], [address], [address] [address] Business (1) In 3 days 12/10/2022 Comments: General surgeon at [place] With: Address: When: Please return to the ED with any new or worsening symptoms including worsening pain, fevers and chills, worsening nausea and inability to tolerate a liquid diet. With: Address: When: You may follow with the general surgeon recommended to by your primary care provider. You have also been provided with the information for the local [facility] general surgeons. DIAGNOSIS: Cholelithiases; Nausea Normal [facility] ED Note-Physicianon 12-09-19 23 ED Note-Physician Basic Information Time Seen: Lupis Miller PA-C 12/07/2022 21:34 Chief Complaint Has had abdominal [...] day(s), # 28 cap(s), Refills(s) 0, Pharmacy: [facility]/pharmacy #[id number], 167.6, cm, 12/07/22 21:32:00 EDT, Height/Length [...] day(s), # 12 tab(s), Refills(s) 0, Pharmacy: [facility]/pharmacy #[id number], 167.6, cm, 12/07/22 21:32:00 EDT, Height/Length [...] Clark In 3 days 12/10/2022 EDT [address], [address] [place] [phone] Business (1) Additional Instructions: General surgeon in [place] Willie LOZADA In 3 days 12/10/2022 EDT [address] (more content not included)... Normal [facility] Comment on above: Result Comment: Elec [...] added (diluted fruit juice). ? Eat bland, foxz-lq-athhiw foods in small amounts as you are able. These foods include bananas, applesauce, rice, lean meats, toast, and crackers. ? Avoid fluids that contain a lot of sugar or caffeine, such as energy drinks, sports drinks, and soda. ? Avoid alcohol. ? Avoid spicy or fatty foods. General instructions ? Take gmap-vek-rbxubvx and prescription medicines only as told by your health care provider. ? Drink enough fluid to keep your urine pale yellow. ? Wash your hands often using soap and water. If soap and water are not available, use hand clinical sales consultant. ? Make sure that all people in [...] and drinking to prevent dehydration. ? Take kqbc-rwo-kuootkr and prescription medicines only as told by [...] 08/20/2006 Document Revised: 12/12/2019 Document Reviewed: 01/28/2019 [employer] Patient Education ? 2019 [employer]. Cholelithiasis Cholelithiasis is a form of gallbladder [...] yellow-green in (more content not included)... Normal [facility] ED Patient Summaryon 023 ED Patient Summary [place] [id number] Patient Discharge Instructions Person Information Name: DARLINE FALCON Age: 22 Years Arrival Date: 12/07/2022 21:25:41 Discharge Diagnosis: Cholelithiases; Nausea Primary Care Physician: Madhavi Bustamante MD Provider Information Primary Provider: Yash Medina DO [employer] Journalist:Lupis Miller PA-C The exam and treatment you received in the Emergency Department were for an urgent problem and are not intended as complete care. It is important that you follow up with a doctor, nurse practitioner, or physician?s dyer assistant for ongoing care. If your symptoms [...] Instructions: With: Address: When: Fernando Clark [address], [address] [place], [place] [phone] Business (1) In 3 days 12/10/2022 Comments: General surgeon in [place] With: Address: When: Willie LOZADA [address], [address], [facility] [address] [place] [address] Business (1) In 3 days 12/10/2022 Comments: General surgeon at [place] With: Address: When: Please return to the ED with any new or worsening symptoms including worsening pain, fevers and chills, worsening nausea and inability to tolerate a liquid diet. With: Address: When: You may follow with the general surgeon recommended to by your primary care provider. You have also been provided with the information for the local [facility] general surgeons. In the event that this physician does not participate in your insurance network, please consult with your insurance company to find a nearby participating provider. Patient Education Materials: Nausea and Vomiting, Adult; Cholelithiasis A MESSAGE TO ALL PATIENTS REGARDING OPIOIDS PRESCRIPTION OPIOIDS: WHAT YOU NEED TO KNOW Prescription opioids can be used to help relieve rsgwudno-vk-waavft pain and are often prescribed following a [...] Store prescription (more content not included)... Normal [facility] Hep Func Panelon 12-08-2022 Albumin [Mass/Vol] 4.4 g/dL Normal 3.3-5.0 [facility] Comment on above: Performed By: #### 2 453778, 2167325, 7168206, 82675411, 3383422, 9177629 ####[facility] [address] [place] [address] Albumin/Globulin (S) [Mass conc ratio] 1.3 Normal 1.1-2.2 [facility] Comment on above: Performed By: #### 2 825739, 9421636, 7602162, 34754277, 3552502, 3014664 ####[facility] [address] [place], [place] [address] ALP [Catalytic activity/Vol] 65 Int._Unit/L Normal 21-98 [facility] Comment on above: Performed By: #### 2 564830, 4817356, 4252109, 55470502, 6312302, 6534812 ####[address] [address] ALT No additional P-5'-P [Catalytic activity/Vol] 20 Int._Unit/L Normal 6-46 [facility] Comment on above: Performed By: #### 2 412507, 1105923, 0742619, 46349221, 8716308, 4042108 ####[place] [address] AST [Catalytic activity/Vol] 19 Int._Unit/L Normal 5-43 [facility] Comment on above: Performed By: #### 2 907665, 2510595, 5720493, 44387098, 5042058, 7824942 ####[facility] [address] [place], [place] [address] Bilirubin [Mass/Vol] 1.7 mg/dL High 0.0-1.1 [facility] Comment on above: Performed By: #### 2 464761, 0408278, 0174360, 95012966, 2106386, 6523011 ####[place] [address] Bilirubin.direct [Mass/Vol] 0.2 mg/dL Normal 0.1-0.4 [facility] Comment on above: Performed By: #### 2 729749, 4416656, 4814382, 11032434, 0982041, 3012241 ####[address] [address] Bilirubin.indirect [Mass or moles/Vol] 1.5 mg/dL High 0.1-0.9 [facility] Comment on above: Performed By: #### 2 205520, 7402312, 3387398, 31173640, 4329538, 5819575 ####[facility] [address] [place] [address] Globulin (S) [Mass/Vol] 3.3 g/dL Normal 1.4-4.0 [facility] Comment on above: Performed By: #### 2 910617, 1705472, 1333752, 66606092, 4523649, 6497937 ####[place] [address] [place] [address] Protein [Mass/Vol] 7.7 g/dL Normal 6.0-7.8 [facility] Comment on above: Performed By: #### 2 820319, 3609363, 0718894, 91554328, 1841628, 2771259 ####[address] [address] Lipase Levelon 12-08-2022 Lipase [Catalytic activity/Vol] 39 U/L Normal 13-58 [facility] Comment on above: Performed By: #### 2 252089, 8232622, 1698882, 49490735, 2840700, 0689433 ####[facility] [address] [place] [address] U BetaHcg Qualon 12-08-2022 HCG.beta subunit (U) [Moles/Vol] Negative Normal [facility] Comment on above: Performed By: #### 2 9201323, 04469683, 6449566 ####[address] [address] UA With Cult Reflexon 2022 Bacteria LM Ql (Urine sed) 1+ /HPF Abnormal Trace [facility] Comment on above: Performed By: #### 2 6431207, 20243204, 1486750 ####[address] [address] Bilirubin Ql (U) Negative Normal Negative [facility] Comment on above: Performed By: #### 2 1767405, 44039579, 0558509 ####[address] [address] Clarity (U) CLEAR Normal Clear [facility] Comment on above: Performed By: #### 2 1945427, 24047558, 7088059 ####[address] [address] Color (U) YELLOW Normal Yellow [facility] Comment on above: Performed By: #### 2 8387743, 29597808, 3898010 ####[address] [address] Epithelial cells.squamous LM.HPF (Urine sed) [#/Area] 3-4 Normal 0-2 [facility] Comment on above: Performed By: #### 2 1231545, 05629581, 8449155 ####[address] [address] Glucose Test strip (U) [Mass/Vol] Negative Normal Negative [facility] Comment on above: Performed By: #### 2 9990248, 72841999, 1002496 ####[facility] [address] [place] [address] Hemoglobin Ql (U) TRACE Abnormal Negative [facility] Comment on above: Performed By: #### 2 9498392, 30112054, 3702033 ####[address] [address] Ketones (U) [Mass/Vol] Negative Normal Negative [facility] Comment on above: Performed By: #### 2 9876347, 54462257, 0749450 ####[facility] [address] [place] [address] [employer].plasma/Lithiu m.RBC (Bld) [Mass ratio] 0-3 Normal 0-3 [facility] Comment on above: Performed By: #### 2 0287463, 78079485, 2469344 ####[facility] [address] [place] [address] Nitrite Ql (U) Negative Normal Negative [facility] Comment on above: Performed By: #### 2 9838914, 57711397, 1410098 ####[address] [address] pH (U) 6.0 [pH] Invalid Interpretation Code 5.0-9.0 [facility] Comment on above: Performed By: #### 2 2174611, 30765623, 9322763 ####[address] [address] Protein (U) [Mass/Vol] Negative Normal Negative [facility] Comment on above: Performed By: #### 2 0374391, 88373749, 2807617 ####[place] [address] Specific gravity (U) [Rel density] 1.020 Invalid Interpretation Code 1.005-1.030 [facility] Comment on above: Performed By: #### 2 5793411, 93030174, 1624150 ####[place] [address]557 Type of Urine collection method Clean Catch Normal [facility] Comment on above: Performed By: #### 2 2102254, 76934392, 0770586 ####[place] [address] Urobilinogen Qn (U) 0.2 {Tuan'U}/dL Normal 0.0-1.0 [facility] Comment on above: Performed By: #### 2 3084119, 40567612, 2133987 ####[place] [address] WBC Auto Ql (U) 2+ Abnormal Negative [facility] Comment on above: Performed By: #### 2 8779493, 41560857, 3001062 ####[place] [address] WBC LM.HPF (Urine sed) [#/Area] 6-15 Abnormal 0-5 [facility] Comment on above: Performed By: #### 2 7536202, 42410629, 9747400 ####[address] [address] eGFRon 12-08-2022 GFR/1.73 sq M.predicted among blacks MDRD (S/P/Bld) [Vol rate/Area] mL/min/{1.73_m2} Normal >=59 [facility] Comment on above: Order Comment: Order added by Discern Expert. Result Comment: eGFR is race adjusted. AA=. Performed By: #### 2 415509, 9448071, 9330140, 50090686, 3689313, 7198812 ####[facility] [address] [place] [address] GFR/1.73 sq M.predicted among non-blacks MDRD (S/P/Bld) [Vol rate/Area] mL/min/{1.73_m2} Normal >=59 [facility] Comment on above: Order Comment: Order added by Chanell Expert. Result Comment: Stave Saw Operator asaf kidney disease could be indicated at eGFR's of less than 60 mL/min/1.73m2. Kidney failure is indicated at less than 15 mL/min/1.73m2. Performed By: #### 2 789867, 5459337, 8724257, 86503674, 2561016, 6064069 ####[facility] [address] [place] [address] Auto Diffon 12-07-2022 Basophils/100 WBC (Bld) 0.4 % Normal 0.0-2.0 [facility] Comment on above: Order Comment: Order Added by Discern Expert. Performed By: #### 2 967496, 5436023, 9773387, 38045608, 1244176, 9051065 ####[facility] [address] [place] [address] Basophils/Leukocytes Auto (Bld) [Pure # fraction] 0.0 E9/L Normal 0.0-0.2 [facility] Comment on above: Order Comment: Order Added by Chanell Expert. Performed By: #### 2 289924, 9019744, 9659088, 31082856, 5452742, 5603997 ####[facility] [address] [place] [address] Eosinophils/100 WBC (Bld) 3.1 % Normal 0.0-8.0 [facility] Comment on above: Order Comment: Order Added by Discern Expert. Performed By: #### 2 124246, 4428639, 4804472, 91799557, 0413307, 8578777 ####[place] [address] [place] [address] Eosinophils/Leukocyte s Auto (Bld) [Pure # fraction] 0.3 E9/L Normal 0.0-0.5 [facility] Comment on above: Order Comment: Order Added by Discern Expert. Performed By: #### 2 320551, 8208509, 1167739, 46821958, 0033789, 3192369 ####[address] [address] Lymphocytes/100 WBC (Bld) 17.3 % Normal 14.0-50.0 [facility] Comment on above: Order Comment: Order Added by Discern Expert. Performed By: #### 2 944320, 0111510, 0596257, 13718527, 5504098, 5119792 ####[address] [address] Lymphocytes/Leukocyte s Auto (Bld) [Pure # fraction] 1.8 E9/L Normal 1.0-4.0 [facility] Comment on above: Order Comment: Order Added by Discern Expert. Performed By: #### 2 593751, 5145507, 0954764, 33690734, 9679882, 4254139 ####[place] [address] [place] [address] Monocytes/100 WBC (Bld) 5.8 % Normal 4.0-14.0 [facility] Comment on above: Order Comment: Order Added by Discern Expert. Performed By: #### 2 336032, 3406260, 0665288, 13412288, 4667023, 2201633 ####[address] [address] Monocytes/Leukocytes Auto (Bld) [Pure # fraction] 0.6 E9/L Normal 0.2-1.0 [facility] Comment on above: Order Comment: Order Added by Discern Expert. Performed By: #### 2 050412, 6353670, 1987696, 90505103, 5688437, 9758112 ####[place] [address] [place] [address] Neutrophils/100 WBC (Bld) 73.4 % Normal 36.0-75.0 [facility] Comment on above: Order Comment: Order Added by Discern Expert. Performed By: #### 2 060097, 7043104, 3608706, 69024008, 8465692, 3176350 ####[place] [address] [place] [address] Neutrophils/Leukocyte s Auto (Bld) [Pure # fraction] 7.9 E9/L High 2.0-7.5 [facility] Comment on above: Order Comment: Order Added by Discern Expert. Performed By: #### 2 964193, 5784164, 1405747, 47945227, 0970512, 6763494 ####[address] [address] CBC w/ Auto Diffon 3 Erythrocyte distribution width (RBC) [Ratio] 13.9 % Normal 10.9-14.2 [facility] Comment on above: Performed By: #### 2 987061, 0944319, 3966608, 89536940, 6644808, 1927037 ####[place] [address] [place] [address] Hematocrit (Bld) [Volume fraction] 44.1 % Normal 34.0-46.0 [facility] Comment on above: Performed By: #### 2 346463, 1591986, 6928320, 50654120, 5038737, 1265388 ####[place] [place] [address] Hemoglobin (Bld) [Mass/Vol] 15.3 g/dL Normal 12.0-16.0 [facility] Comment on above: Performed By: #### 2 882358, 1130596, 0611924, 55255012, 0583499, 5189441 ####[place] [address] MCH (RBC) [Entitic mass] 30.0 pg Normal 27.0-34.0 [facility] Comment on above: Performed By: #### 2 629443, 3021276, 3731019, 96549404, 8022932, 1570962 ####[place] [address] MCHC (RBC) [Mass/Vol] 34.8 g/dL Normal 31.4-36.0 [facility] Comment on above: Performed By: #### 2 943418, 0885732, 7080953, 88574182, 3386155, 1783382 ####[place] [address] MCV (RBC) [Entitic vol] 86.4 fL Normal 80.0-100.0 [facility] Comment on above: Performed By: #### 2 602917, 3232347, 4376745, 53626395, 0090487, 4811502 ####[place] [address] Platelet mean volume (Bld) [Entitic vol] 8.7 fL Normal 6.4-10.8 [facility] Comment on above: Performed By: #### 2 112655, 5992380, 3316430, 71745687, 1584427, 4277126 ####[address] [address] Platelets (Bld) [#/Vol] 221.0 E9/L Normal 150.0-500.0 [facility] Comment on above: Performed By: #### 2 986557, 5168059, 0174960, 66642513, 0601442, 3205726 ####[place] [address] RBC (Bld) [#/Vol] 5.1 E12/L Normal 4.3-5.9 [facility] Comment on above: Performed By: #### 2 276495, 7654353, 8418666, 19898841, 9839451, 2532681 ####[facility] [address] [place] [address] WBC corrected for nucl RBC Auto (Bld) [#/Vol] 10.7 E9/L Normal 4.0-11.0 [facility] Comment on above: Performed By: #### 2 088559, 9777443, 6375667, 23849799, 1677982, 6363597 ####[facility] [address] [place] [address] CHEMISTRYOrdered By: SYSTEM SYSTEM on 12-07-2022 Albumin [...] MDRD (S/P/Bld) [Vol rate/Area] mL/min/1.73 m2 Normal >=59mL/min/1 .73 m2 FT Chem S GFR/1.73 sq M.predicted among non-blacks MDRD (S/P/Bld) [Vol rate/Area] mL/min/1.73 m2 Normal >=59mL/min/1 .73 m2 [facility] [place] S Globulin (S) [Mass/Vol] 3.3 g/dL Normal 1.4 - 4.0 gm/dL [facility] Glucose [Mass/Vol] 103 mg/dL Normal 55 - 199 mg/dL [facility] Lipase [Catalytic activity/Vol] 39 U/L Normal 13 - 58 unit/L [facility] Potassium [Moles/Vol] 3.3 mmol/L Low 3.5 - 5.3 mmol/L [facility] Protein [Mass/Vol] 7.7 g/dL Normal 6.0 - 7.8 gm/dL [facility] Sodium [Moles/Vol] 136 mmol/L Normal 135 - 145 mmol/L [facility] Urea nitrogen [Mass/Vol] 12 mg/dL Normal 5 - 21 mg/dL [facility] Urea nitrogen/Creatinine [Mass ratio] 17 mg/mg Normal 10 - 20 [facility] Consent for Treatmenton Consent for Treatment [id number] [facility] [id number] Normal [facility] HEMATOLOGYOrdered By: SYSTEM SYSTEM on 12-07-2022 [...] PM) Normal Negative [facility] UA Auto SS [employer].plasma/Lithiu m.RBC (Bld) [Mass ratio] 0-3 /HPF Normal [...] Desc Clean Catch (12/07/22 9:55 PM) Normal [facility] UA Auto SS Urobilinogen Qn (U) 0.6811691 {Tuan'U}/dL Normal 0.0 - 1.0 EU/dL [facility] UA Auto SS WBC Auto Ql (U) 2+ *ABN* (12/07/22 9:55 PM) Invalid Interpretation Code Negative [facility] UA Auto SS WBC LM.HPF (Urine sed) [#/Area] 6-15 /HPF Invalid Interpretation Code 0-5/HPF [facility] UA Auto SS AGNEL w/Reflex if POSon 2022 Nuclear Ab Ql (S) Negative Invalid Interpretation Code Negative [facility] Comment on above: Result Comment: Perf ormed at: [facility] [address] [id number] PhD Octaviano Chen Performed By: #### 1 7717951, 1172847, 75781287, 31543848, 80215461, 0091315, 5137832, 0791261 ####[facility] [address] [place] [address] Auto Diffon 12-04-2022 Basophils/100 WBC (Bld) 0.6 % Normal 0.0-2.0 [facility] Comment on above: Order Comment: Order Added by Discern Expert. Performed By: #### 1 5262824, 9041892, 43802824, 33900939, 40363339, 0551735, 6391789, 0351162 ####[facility] [address] [place] [address] Basophils/Leukocytes Auto (Bld) [Pure # fraction] 0.0 E9/L Normal 0.0-0.2 [facility] Comment on above: Order Comment: Order Added by Discern Expert. Performed By: #### 1 8999679, 1763056, 69101109, 71332326, 51725951, 9561611, 4999864, 3505646 ####[facility] [address] [place] [address] Eosinophils/100 WBC (Bld) 5.5 % Normal 0.0-8.0 [facility] Comment on above: Order Comment: Order Added by Discern Expert. Performed By: #### 1 9061773, 8909895, 05084478, 15559018, 40246348, 4203926, 1840044, 8809164 ####[place] [place] [address] Eosinophils/Leukocyte s Auto (Bld) [Pure # fraction] 0.4 E9/L Normal 0.0-0.5 [facility] Comment on above: Order Comment: Order Added by Discern Expert. Performed By: #### 1 9836824, 3459708, 99719139, 31704503, 38544851, 5380425, 6407268, 5782504 ####[place] [place] [address] Lymphocytes/100 WBC (Bld) 32.2 % Normal 14.0-50.0 [facility] Comment on above: Order Comment: Order Added by Discern Expert. Performed By: #### 1 9014172, 9785047, 83053453, 14579082, 06784086, 6850393, 0790995, 8891734 ####[address] [address] Lymphocytes/Leukocyte s Auto (Bld) [Pure # fraction] 2.5 E9/L Normal 1.0-4.0 [facility] Comment on above: Order Comment: Order Added by Discern Expert. Performed By: #### 1 3186298, 3107665, 93135322, 37985373, 71690598, 5275226, 9221774, 3549172 ####[place] [place] [address] Monocytes/100 WBC (Bld) 6.7 % Normal 4.0-14.0 [facility] Comment on above: Order Comment: Order Added by Discern Expert. Performed By: #### 1 1892111, 7708509, 42113499, 54637774, 25274442, 2944697, 1337177, 1173622 ####[address] [address] Monocytes/Leukocytes Auto (Bld) [Pure # fraction] 0.5 E9/L Normal 0.2-1.0 [facility] Comment on above: Order Comment: Order Added by Discern Expert. Performed By: #### 1 2956240, 3364571, 93009285, 55107515, 92387775, 9464142, 5114611, 8902782 ####[facility] [address] [place] [address] Neutrophils/100 WBC (Bld) 55.0 % Normal 36.0-75.0 [facility] Comment on above: Order Comment: Order Added by Discern Expert. Performed By: #### 1 9580843, 1016281, 95697859, 08517284, 73344227, 9123424, 0947886, 9099784 ####[facility] [address] [place] [address] Neutrophils/Leukocyte s Auto (Bld) [Pure # fraction] 4.2 E9/L Normal 2.0-7.5 [facility] Comment on above: Order Comment: Order Added by Discern Expert. Performed By: #### 1 3608943, 6514452, 50174736, 54814786, 19304656, 8227671, 2344712, 9802061 ####[facility] [address] [place] [address] CBC w/ Auto Diffon 3 Erythrocyte distribution width (RBC) [Ratio] 13.9 % Normal 10.9-14.2 [facility] Comment on above: Performed By: #### 1 4238037, 8977622, 20568076, 40337308, 36974228, 5687084, 2415208, 0698317 ####[facility] [address] [place] [address] Hematocrit (Bld) [Volume fraction] 41.1 % Normal 34.0-46.0 [facility] Comment on above: Performed By: #### 1 5788835, 8905524, 86205208, 57212694, 01271308, 4357615, 5604484, 1331679 ####[facility] [address] [place] [address] Hemoglobin (Bld) [Mass/Vol] 14.2 g/dL Normal 12.0-16.0 [facility] Comment on above: Performed By: #### 1 0850968, 2004139, 27363102, 71544851, 19216919, 7537564, 0657352, 0276665 ####[facility] [address] [place] [address] MCH (RBC) [Entitic mass] 30.1 pg Normal 27.0-34.0 [facility] Comment on above: Performed By: #### 1 4516701, 6012708, 64771360, 81179620, 68722731, 5912458, 0335701, 7375321 ####[place] [place] [address]57 MCHC (RBC) [Mass/Vol] 34.6 g/dL Normal 31.4-36.0 [facility] Comment on above: Performed By: #### 1 3350685, 1268803, 50035214, 85158891, 78176309, 1911617, 8916644, 2118861 ####[address] [place] [address] MCV (RBC) [Entitic vol] 87.1 fL Normal 80.0-100.0 [facility] Comment on above: Performed By: #### 1 2022156, 1935018, 13278132, 69287757, 59886649, 3197327, 3277663, 6630622 ####[address] [place] [address] Platelet mean volume (Bld) [Entitic vol] 8.4 fL Normal 6.4-10.8 [facility] Comment on above: Performed By: #### 1 6924710, 6143165, 66231606, 43771555, 16807119, 9727203, 9465877, 9110558 ####[facility] [address] [place] [address] Platelets (Bld) [#/Vol] 220.0 E9/L Normal 150.0-500.0 [facility] Comment on above: Performed By: #### 1 8406716, 8716604, 80901169, 40671338, 27624614, 0978194, 4496794, 9814317 ####[facility] [address] [place] [address] RBC (Bld) [#/Vol] 4.7 E12/L Normal 4.3-5.9 [facility] Comment on above: Performed By: #### 1 1469133, 1962880, 55749785, 97808546, 42989970, 1129152, 8228472, 5046818 ####[facility] [address] [place] [address] WBC corrected for nucl RBC Auto (Bld) [#/Vol] 7.7 E9/L Normal 4.0-11.0 [facility] Comment on above: Performed By: #### 1 7080897, 0180962, 62075360, 82648261, 57745221, 4071291, 3327550, 4614921 ####[facility] [address] [place] [address] CHEMISTRYOrdered By: SYSTEM SYSTEM on 12-04-2022 Albumin [...] MDRD (S/P/Bld) [Vol rate/Area] mL/min/1.73 m2 Normal >=59mL/min/1 .73 m2 [facility] Chem S GFR/1.73 sq M.predicted among non-blacks MDRD (S/P/Bld) [Vol rate/Area] mL/min/1.73 m2 Normal >=59mL/min/1 .73 m2 [facility] Chem S Globulin (S) [Mass/Vol] [...] 10 mg/dL Normal 5 - 21 mg/dL [facility] Remisol Urea nitrogen/Creatinine [Mass ratio] 14 mg/mg Normal 10 - 20 [facility] Remisol CMPon 12-04-2022 Albumin [Mass/Vol] 4.1 g/dL Normal 3.3-5.0 [facility] Comment on above: Performed By: #### 1 5451496, 5722790, 32765027, 11982198, 10957128, 4972552, 3348368, 7649310 ####[facility] [address] [place] [address] Albumin/Globulin (S) [Mass conc ratio] 1.4 Normal 1.1-2.2 [facility] Comment on above: Performed By: #### 1 0883999, 9887968, 90352540, 49709563, 45782397, 2662340, 4569970, 6095064 ####[facility] [address] [place] [address] ALP [Catalytic activity/Vol] 60 Int._Unit/L Normal 21-98 [facility] Comment on above: Performed By: #### 1 1408262, 5917735, 30658776, 23846171, 87644853, 2238847, 1738931, 9848913 ####[facility] [address] [place] [address] ALT No additional P-5'-P [Catalytic activity/Vol] 21 Int._Unit/L Normal 6-46 [facility] Comment on above: Performed By: #### 1 2095238, 8382884, 26902922, 90214833, 43224531, 1590362, 0539475, 0482066 ####[facility] [address] [place] [address] Anion gap [Moles/Vol] 7 mmol/L Normal 6-16 [facility] Comment on above: Performed By: #### 1 3075267, 3677446, 87609958, 20393563, 31546452, 9156708, 4685861, 6096291 ####[facility] [address] [place] [address] AST [Catalytic activity/Vol] 17 Int._Unit/L Normal 5-43 [facility] Comment on above: Performed By: #### 1 9708799, 1973224, 25246712, 35956419, 55867294, 3399563, 7395257, 4952749 ####[facility] [address] [place] [address] Bilirubin [Mass/Vol] 1.3 mg/dL High 0.0-1.1 [facility] Comment on above: Performed By: #### 1 6312319, 5884455, 28809451, 11307529, 43788330, 1207682, 6021330, 2463890 ####[facility] [address] [place] [address] Calcium [Mass/Vol] 8.8 mg/dL Low 8.9-11.1 [facility] Comment on above: Performed By: #### 1 3055096, 4140060, 84827302, 24304287, 19077389, 0784516, 0852907, 0047354 ####[facility] [address] [place] [address] Chloride [Moles/Vol] 107 mmol/L Normal 101-111 [facility] Comment on above: Performed By: #### 1 2029771, 4376933, 51255936, 33033489, 57273779, 0409496, 2143356, 8505683 ####[facility] [address] [place] [address] CO2 [Moles/Vol] 27 mmol/L Normal 21-[address] [facility] Comment on above: Performed By: #### 1 5980066, 3666721, 59704144, 34958347, 19595008, 3875963, 2672157, 5228755 ####[facility] [facility] [address] [place] [address] Creatinine [Mass/Vol] 0.7 mg/dL Normal 0.5-1.3 [facility] Comment on above: Performed By: #### 1 [id number], 0050416, 49301644, 39997220, 34629916, 9913853, 2187217, 7512362 ####[facility] [address] [place] [address] Globulin (S) [Mass/Vol] 3.0 g/dL Normal 1.4-4.0 [facility] Comment on above: Performed By: #### 1 [id number], 3187466, 14281991, 19849949, 73701226, 6605358, 2160760, 7589113 ####[facility] [address] [place] [address] Glucose [Mass/Vol] 86 mg/dL Normal 55-199 [facility] Comment on above: Result Comment: If t his glucose result represents a fasting glucose, interpretation should refer to the following reference range: 55-99 mg/dL Performed By: #### 1 [id number], 9997000, 13958467, 20099448, 06583743, 1650346, 2303460, 5294926 ####[facility] [address] [place] [address] Potassium [Moles/Vol] 3.7 mmol/L Normal 3.5-5.3 [facility] Comment on above: Performed By: #### 1 5172408, 8870849, 05826647, 36083543, 50979852, 2857566, 0263940, 7883917 ####[facility] [address] [place] [address] Protein [Mass/Vol] 7.1 g/dL Normal 6.0-7.8 [facility] Comment on above: Performed By: #### 1 3072237, 0833457, 04921219, 45931582, 47055431, 3048865, 0341107, 2985712 ####[facility] [address] [place] [address] Sodium [Moles/Vol] 137 mmol/L Normal 135-145 [facility] Comment on above: Performed By: #### 1 7714087, 7077197, 08223355, 90910477, 98282768, 1189476, 9596173, 9649911 ####[facility] [address] [place] [address] Urea nitrogen [Mass/Vol] 10 mg/dL Normal 5-21 [facility] Comment on above: Performed By: #### 1 9674855, 5059229, 98510830, 49123693, 91631566, 2940433, 6781945, 5091411 ####[facility] [address] [place] [address] Urea nitrogen/Creatinine [Mass ratio] 14 No Units Normal 10-20 [facility] Comment on above: Performed By: #### 1 1009024, 7716712, 35792185, 90096702, 93239558, 7218079, 9654481, 5850223 ####[facility] [address] [place] [address] CRPon 12-04-2022 CRP [Mass/Vol] 0.6 mg/dL Normal <=1.9 [facility] Comment on above: Performed By: #### 1 1840355, 4870613, 32283946, 65083661, 39443202, 5960522, 8095796, 1099360 ####[facility] [address] [place] [address] Consent for Treatmenton Consent for Treatment [id number] .[id number]:127 Normal [facility] HEMATOLOGYOrdered By: SYSTEM SYSTEM on 12-04-2022 [...] 0.5 E9/L Normal 0.2 - 1.0 E9/L FT HemeAutoSS Neutrophils/100 WBC (Bld) 55.0 % Normal 36.0 - 75.0 % FT HemeAutoSS Neutrophils/Leukocyte s Auto (Bld) [Pure # fraction] 4.2 E9/L Normal 2.0 - 7.5 E9/L FT HemeAutoSS HEMATOLOGYOrdered By: Magdalena Dai on 12-04-2022 Erythrocyte distribution width (RBC) [Ratio] 13.9 % Normal 10.9 - 14.2 % FT HemeAutoSS Hematocrit (Bld) [Volume fraction] 41.1 % Normal 34.0 - 46.0 % FT HemeAutoSS Hemoglobin (Bld) [Mass/Vol] 14.2 g/dL Normal 12.0 - 16.0 gm/dL FT HemeAutoSS MCH (RBC) [Entitic mass] 30.1 pg Normal 27.0 - 34.0 pg [facility]eAutoSS MCHC (RBC) [Mass/Vol] 34.6 g/dL Normal 31.4 - 36.0 gm/dL FT HemeAutoSS MCV (RBC) [Entitic vol] 87.1 fL Normal 80.0 - 100.0 fL FT HemeAutoSS Platelet mean volume (Bld) [Entitic vol] 8.4 fL Normal 6.4 - 10.8 fL FT HemeAutoSS Platelets (Bld) [#/Vol] 220.0 E9/L Normal 150.0 - 500.0 E9/L FT HemeAutoSS RBC (Bld) [#/Vol] 4.7 E12/L Normal 4.3 - 5.9 E12/L FT HemeAutoSS Sed Rate Automated 10 mm/h Normal 0 - 34 mm/hr FT HemeAutoSS WBC corrected for nucl RBC Auto (Bld) [#/Vol] 7.7 E9/L Normal 4.0 - 11.0 E9/L FT HemeAutoSS Physician Orderon 12-04-2022 Physician Order [id number] 1.00CD:127 Normal [facility] Physician Order [id number]. 00CD:127 Normal [facility] Sed Rate Automatedon 023 Sed Rate Automated 10 mm/hr Normal 0-34 [facility] Comment on above: Performed By: #### 1 5132354, 6476428, 63682206, 65871683, 93956483, 0374963, 9227135, 8462480 ####[facility] [address] [place] [address] TSH With T4fr Reflexon 12-04 TSH Qn 1.11 m[IU]/L Normal 0.34-5.60 [facility] Comment on above: Performed By: #### 1 9331319, 4416287, 27631643, 14630834, 87932318, 1955985, 5848405, 3130529 ####[facility] [address] [place] [address] US Abdomen, Limitedon 2022 US Abdomen, Limited [...] Rubin MD Transcribed by: LITA Technologist: BREONNA Normal [facility] eGFRon 12-04-2022 GFR/1.73 sq M.predicted among blacks MDRD (S/P/Bld) [Vol rate/Area] mL/min/{1.73_m2} Normal >=59 [facility] Comment on above: Order Comment: Order added by Discern Expert. Result Comment: eGFR is race adjusted. AA=. Performed By: #### 1 0020262, 9884466, 07865797, 30768496, 45426991, 2436076, 8717035, 7779115 ####[facility] [address] [place] [address] GFR/1.73 sq M.predicted among non-blacks MDRD (S/P/Bld) [Vol rate/Area] mL/min/{1.73_m2} Normal >=59 [facility] Comment on above: Order Comment: Order added by Discern Expert. Result Comment: Stave Saw Operator asaf kidney disease could be indicated at eGFR's of less than 60 mL/min/1.73m2. Kidney failure is indicated at less than 15 mL/min/1.73m2. Performed By: #### 1 4808230, 5416884, 53564976, 48829453, 55950823, 3434973, 8185995, 8016475 ####[facility] [address] [place] [address] Physician Orderon 11-29-2022 Physician Order [id number] .[id number]:127 Normal [facility] PAP ACOG PANEL 2: 21 to 29on 10-31-2022 . . Normal [facility] Comment on above: Performed By: #### R PRQ #### [facility] [address] [place] [address] Dr. Jerrod Bettencourt Age Gdln ACOG Testing - Normal [facility] Comment on above: Performed By: #### R PRQ #### [facility] [id number] Jerrod Bettencourt DIAGNOSIS: Comment Abnormal [facility] Comment on above: Result Comment: EPIT HELIAL CELL ABNORMALITY. LOW GRADE SQUAMOUS INTRAEPITHELIAL LESION (LSIL). Performed By: #### R PRQ #### [facility] [address] [address] [address] Jerrod Bettencourt Electronically signed by: Comment Normal [facility] Comment on above: Result Comment: Rachna Navarrete MD, Pathologist Performed By: #### R PRQ #### [facility] [address] [place] [address] Dr. Jerrod Bettencourt Methodology: Comment Normal [facility] Comment on above: Result Comment: This liquid based ThinPrep(R) pap test was screened with the use of an image guided system. Performed By: #### R PRQ #### [facility] [address] [place] [address] Dr. Jerrod Bettencourt Note: Comment Normal [facility] Comment on above: Result Comment: The Pap smear is a screening test designed to aid in the detection of premalignant and malignant conditions of the uterine cervix. It is not a diagnostic procedure and should not be used as the sole means of detecting cervical cancer. Both false-positive and false-negative reports do occur. . Performed By: #### R PRQ #### [facility] [address] [place] [address] Dr. Jerrod Bettencourt Pathologist Provided ICD10 Comment Normal [facility] Comment on above: Result Comment: [id number] Performed By: #### R PRQ #### [facility] [address] [place] [address] Dr. Jerrod Bettencourt Performed by: Comment Normal [facility] Comment on above: Result Comment: Janet Abreu Advance Agent (ASCP) Performed By: #### R PRQ #### [facility] [address] [place] [address] Dr. Jerrod Bettencourt Recommendation: Comment Abnormal [facility] Comment on above: Result Comment: Sugg est follow up as clinically appropriate. Performed By: #### R PRQ #### [facility] [address] [place] [address] Dr. Jerrod Bettencourt Reflex Criteria: Comment Normal [facility] Comment on above: Result Comment: The HPV DNA reflex criteria were not met with this specimen result therefore, no HPV testing was performed. . Performed By: #### R PRQ #### [facility] [address] [place] [address] Dr. Jerrod Bettencourt Specimen adequacy: Comment Normal [facility] Comment on above: Result Comment: Sati sfactory for evaluation. Endocervical and/or squamous metaplastic cells (endocervical component) are present. Performed By: #### R PRQ #### [facility] [address] [place] [address] Dr. Jerrod Bettencourt CBC AUTO DIFFon 06-04-2022 BASO # 0.1 103/ul Normal 0.0-0.1 [facility] Comment on above: Performed By: #### R PRQ #### [facility] [address] [place] [address] Dr. Jerrod Bettencourt Basophils/100 WBC (Bld) 0.3 % Normal 0.2-2.0 [facility] Comment on above: Performed By: #### R PRQ #### [facility] [address] [place] [address] Dr. Jerrod Bettencourt EO # 0.1 103/ul Normal 0.0-0.7 [facility] Comment on above: Performed By: #### R PRQ #### [facility] [address] [place] [address] Dr. Jerrod Bettencourt Eosinophils/100 WBC (Bld) 0.8 % Critically low 0.9-7.0 [facility] Comment on above: Performed By: #### R PRQ #### [facility] [address] [place] [address] Dr. Jerrod Bettencourt Erythrocyte distribution width (RBC) [Ratio] 13.2 % Normal 11.0-15.0 [facility] Comment on above: Performed By: #### R PRQ #### [facility] [address] [place] [address] Dr. Jerrod Bettencourt Hematocrit (Bld) [Volume fraction] 27.1 % Critically low 36.0-48.0 [facility] Comment on above: Performed By: #### R PRQ #### [facility] [address] [place] [address] Dr. Jerrod Bettencourt Hemoglobin (Bld) [Mass/Vol] 9.5 g/dL Critically low 12.0-16.0 [facility] Comment on above: Performed By: #### R PRQ #### [facility] [address] [place] [address] Dr. Jerrod Bettencourt IG # 0.08 10e3/ul Critically high 0.00-0.03 [facility] Comment on above: Performed By: #### R PRQ #### [facility] [address] [place] [address] Dr. Jerrod Bettencourt IG % 0.6 % Critically high 0.0-0.5 [facility] Comment on above: Performed By: #### R PRQ #### [facility] [address] [place] [address] Dr. Jerrod Bettencourt LYMPH # 2.0 103/ul Normal 1.2-3.8 [facility] Comment on above: Performed By: #### R PRQ #### [facility] [address] [place] [address] Dr. Jerrod Bettencourt Lymphocytes/100 WBC (Bld) 14.0 % Critically low 20.5-60.0 [facility] Comment on above: Performed By: #### R PRQ #### [facility] [address] [place] [address] Dr. Jerrod Bettencourt MANUAL DIFF REQ NO Normal [facility] Comment on above: Performed By: #### R PRQ #### [facility] [address] [place] [address] Dr. Jerrod Bettencourt MCH (RBC) [Entitic mass] 32.9 pg Normal 26.7-34.0 [facility] Comment on above: Performed By: #### R PRQ #### [facility] [address] [place] [address] Dr. Jerrod Bettencourt MCHC (RBC) [Mass/Vol] 35.1 g/dL Normal 29.9-35.2 [facility] Comment on above: Performed By: #### R PRQ #### [facility] [address] [place] [address] Dr. Jerrod Bettencourt MCV (RBC) [Entitic vol] 93.8 fL Normal 81.0-99.0 [facility] Comment on above: Performed By: #### R PRQ #### [facility] [address] [address] [address] eJrrod Bettencourt MONO # 1.1 103/ul Critically high 0.3-0.8 [facility] Comment on above: Performed By: #### R PRQ #### [facility] [address] [address] [address] Jerrod Bettencourt Monocytes/100 WBC (Bld) 7.9 % Normal 1.7-12.0 [facility] Comment on above: Performed By: #### R PRQ #### [facility] [address] [address] [address] Jerrod Bettencourt NEUT # 11.1 103/ul Critically high 1.4-6.5 [facility] Comment on above: Performed By: #### R PRQ #### [facility] [address] [place] [address] Dr. Jerrod Bettencourt Neutrophils/100 WBC (Bld) 76.4 % Critically high 43.0-75.0 [facility] Comment on above: Performed By: #### R PRQ #### [facility] [address] [place] [address] Dr. Jerrod Bettencourt Platelet mean volume (Bld) [Entitic vol] 10.6 fL Normal 9.5-13.5 [facility] Comment on above: Performed By: #### R PRQ #### [facility] [address] [address] [address] Jerrod Bettencourt PLT 147 103/ul Critically low 150-450 [facility] Comment on above: Performed By: #### R PRQ #### [facility] [address] [address] [address] Jerrod Bettencourt RBC 2.89 106/ul Critically low 4.20-5.40 [facility] Comment on above: Performed By: #### R PRQ #### [facility] [address] [address] [address] Jerrod Bettencourt WBC 14.5 103/ul Critically high 4.0-11.0 [facility] Comment on above: Performed By: #### R PRQ #### [facility] [address] [address] [address] Jerrod Bettencourt CBC AUTO DIFFon 06-02-2022 BASO # 0.1 103/ul Normal 0.0-0.1 [facility] Comment on above: Performed By: #### C BC ####[facility] [address] [address]Dr. Jerrod Bettencourt Basophils/100 WBC (Bld) 0.4 % Normal 0.2-2.0 [facility] Comment on above: Performed By: #### C BC ####[facility] [address] [place], [place] [address]Dr. Jerrod Bettencourt EO # 0.4 103/ul Normal 0.0-0.7 [facility] Comment on above: Performed By: #### C BC ####[facility] [address] [place], [place] [address]Dr. Jerrod Bettencourt Eosinophils/100 WBC (Bld) 3.5 % Normal 0.9-7.0 [facility] Comment on above: Performed By: #### C BC ####[facility] [address] [place], [place] [address]Dr. Jerrod Bettencourt Erythrocyte distribution width (RBC) [Ratio] 12.9 % Normal 11.0-15.0 [facility] Comment on above: Performed By: #### C BC ####[facility] [address] [place], [place] [address]Dr. Jerrod Bettencourt Hematocrit (Bld) [Volume fraction] 37.0 % Normal 36.0-48.0 [facility] Comment on above: Performed By: #### C BC ####[facility] [address] [place], [place] [address]Dr. Jerrod Bettencourt Hemoglobin (Bld) [Mass/Vol] 13.3 g/dL Normal 12.0-16.0 [facility] Comment on above: Performed By: #### C BC ####[facility] [address] [place], [place] [address]Dr. Jerrod Bettencourt IG # 0.10 10e3/ul Critically high 0.00-0.03 [facility] Comment on above: Performed By: #### C BC ####[facility] [address] [id number] Jerrod Sg IG % 0.8 % Critically high 0.0-0.5 [facility] Comment on above: Performed By: #### C BC ####[facility] [address] [address]DrMoises Jerrod Sg LYMPH # 2.6 103/ul Normal 1.2-3.8 [facility] Comment on above: Performed By: #### C BC ####[facility] [address] [place], [place] [address]DrMoises Bettencourt Lymphocytes/100 WBC (Bld) 21.6 % Normal 20.5-60.0 [facility] Comment on above: Performed By: #### C BC ####[facility] [address] [place], [place] [address]DrMoises Tayloroseas Bettencourt MANUAL DIFF REQ NO Normal [facility] Comment on above: Performed By: #### C BC ####[facility] [address] [place], [place] [address]DrMoises Jerrod Sg MCH (RBC) [Entitic mass] 32.8 pg Normal 26.7-34.0 [facility] Comment on above: Performed By: #### C BC ####[facility] [address] [id number] Jerrod Sg MCHC (RBC) [Mass/Vol] 35.9 g/dL Critically high 29.9-35.2 [facility] Comment on above: Performed By: #### C BC ####[facility] [address] [place], [place] [address]DrMoises Bettencourt MCV (RBC) [Entitic vol] 91.1 fL Normal 81.0-99.0 [facility] Comment on above: Performed By: #### C BC ####[facility] [address] [place], [place] [address]DrMoises Bettencourt MONO # 1.0 103/ul Critically high 0.3-0.8 [facility] Comment on above: Performed By: #### C BC ####[facility] [address] [address]Dr. Jerrod Bettencourt Monocytes/100 WBC (Bld) 8.2 % Normal 1.7-12.0 [facility] Comment on above: Performed By: #### C BC ####[facility] [address] [address]Dr. Jerrod Bettencourt NEUT # 8.0 103/ul Critically high 1.4-6.5 [facility] Comment on above: Performed By: #### C BC ####[facility] [address] [place], [place] [address]Dr. Jerrod Bettencourt Neutrophils/100 WBC (Bld) 65.5 % Normal 43.0-75.0 [facility] Comment on above: Performed By: #### C BC ####[facility] [address] [place], [place] [address]Dr. Jerrod Bettencourt Platelet mean volume (Bld) [Entitic vol] 12.1 fL Normal 9.5-13.5 [facility] Comment on above: Performed By: #### C BC ####[facility] [address] [place], [place] [address]Dr. Jerrod Bettencourt PLT 181 103/ul Normal 150-450 [facility] Comment on above: Performed By: #### C BC ####[facility] [address] [place], [place] [address]Dr. Jerrod Bettencourt RBC 4.06 106/ul Critically low 4.20-5.40 [facility] Comment on above: Performed By: #### C BC ####[facility] [address] [place], [place] [address]Dr. Jerrod Bettencourt WBC 12.2 103/ul Critically high 4.0-11.0 [facility] Comment on above: Performed By: #### C BC ####[facility] [address] [place], [place] [address]Dr. Jerrod Bettencourt Covid-19 PCR (CVDTBH)on 05-06 SARS-CoV-2 (COVID-19) RNA KATHY+probe Ql (Unsp spec) Not detected Normal NOT DETECTED [facility] Comment on above: Result Comment: When [...] for this test is supported by the Breeder Service Technician of Health and Human Service's declaration that [...] used). Performed By: #### C VDTBH #### [facility] [address] [address] [address] Jerrod Bettencourt DRUG SCREEN RAPID (URINE)on 06-02-2022 AMP Negative Normal NEGATIVE [facility] Comment on above: Performed By: #### D RUGRPD ####[facility] [address] [address]Dr. Jerrod Bettencourt BAR Negative Normal NEGATIVE [facility] Comment on above: Performed By: #### D RUGRPD ####[facility] [address] [address]Dr. Jerrod Bettencourt BUP Negative Normal NEGATIVE [facility] Comment on above: Performed By: #### D RUGRPD ####[facility] [address] [address]Dr. Jerrod Bettencourt BZO Negative Normal NEGATIVE [facility] Comment on above: Performed By: #### D RUGRPD ####[facility] [address] [address]Dr. Jerrod Bettencourt VERNA Negative Normal NEGATIVE [facility] Comment on above: Performed By: #### D RUGRPD ####[facility] [address] [place], [place] [address]Dr. Jerrod Bettencourt CUT-OFFS SEE BELOW Normal [facility] Comment on above: Result Comment: AMP (Amphetamine): 500ng/mL, BAR (Barbituates): 200 ng/mL, BZO (Benzodiazepines): 150 ng/mL, BUP (Buprenorphine): 10 ng/mL, VERNA (Cocaine): 150 ng/mL, mAMP (Methamphetamine): 500 ng/mL, MTD (Methadone): 200 ng/mL, OPI (Opiates): 100 ng/mL, OXY (Oxycodone): 100 ng/mL, PCP (Phencyclidine): 25 ng/mL, PPX (Propoxyphene): 300 ng/mL, THC (Cannabinoids): 50 ng/mL, TCA (Trycyclic Antidepressants): 300 ng/mL Performed By: #### D RUGRPD ####[facility] [address] [place], [place] [address]Dr. Jerrod Bettencourt DRUG CUT HEADER DRUG CLASS TEST SYSTEM CUT-OFF CONCENTRATIONS ARE FOLLOWS: Normal [facility] Comment on above: Performed By: #### D RUGRPD ####[facility] [address] [place], [place] [address]Dr. Jerrod Bettencourt mAMP Negative Normal NEGATIVE [facility] Comment on above: Performed By: #### D RUGRPD ####[facility] [address] [place], [place] [address]Dr. Jerrod Bettencourt MTD Negative Normal NEGATIVE [facility] Comment on above: Performed By: #### D RUGRPD ####[facility] [address] [place], [place] [address]Dr. Jerrod Bettencourt OPI Negative Normal NEGATIVE [facility] Comment on above: Performed By: #### D RUGRPD ####[facility] [address] [place], [place] [address]Dr. Jerrod Bettencourt OXY Negative Normal NEGATIVE [facility] Comment on above: Performed By: #### D RUGRPD ####[facility] [address] [place], [place] [address]Dr. Jerrod Bettencourt PCP Negative Normal NEGATIVE [facility] Comment on above: Performed By: #### D RUGRPD ####[facility] [address] [place], [place] [address]Cf. Jerrod Bettencourt PPX Negative Normal NEGATIVE [facility] Comment on above: Performed By: #### D RUGRPD ####[facility] [address] [place], [place] [address]Me. Jerrod Bettencourt TCA Negative Normal NEGATIVE [facility] Comment on above: Performed By: #### D RUGRPD ####[facility] [address] [place], [place] [address]Zt. Jerrod Sg THC Negative Normal NEGATIVE [facility] Comment on above: Performed By: #### D RUGRPD ####[facility] [facility] [address] [place], [place] [address]En. Jerrod Bettencourt TYPE AND SCREENon 06-02-2022 TYPE AND SCREEN Negative Normal [facility] Comment on above: Performed By: #### T NS #### [facility] [address] [place], [place] [address] Dr. Jerrod Bettencourt US PREG BIOPHY W [...] by: MELITA MARTINEZ Date: 2022-06-01 16:30 Normal [facility] US PREG BIOPHY W NON STRESSo [...] by: MELITA MARTINEZ Date: 2022-05-24 17:37 Normal [facility] US PREG GROWTHon 05-24-2022 US PREG GROWTH [...] MELITA MARTINEZ Date: 2022-05-24 17:19 Normal [facility] US PREG BIOPHY W NON STRESSo [...] by: ELIAS YOUNG Date: 2022-05-17 16:56 Normal [facility] GROUP B STREP CULTUREon 05-04 S. agalactiae Ag Ql (Unsp spec) Culture Observations: NEGATIVE FOR GROUP B STREPTOCOCCUS. Normal [facility] Comment on above: Performed By: #### G BSCX ####[facility] [address] [place], [place] [address]FyMoises Bettencourt US PREG BIOPHY W NON STRESSo [...] MELITA MARTINEZ Date: 2022-05-11 16:48 Normal [facility] US PREG GROWTHon 05-09-2022 US PREG [...] by: ELIAS YOUNG Date: 2022-05-09 19:19 Normal [facility] US PREG BIOPHY W NON STRESSo [...] by: ELIAS YOUNG Date: 2022-05-03 09:31 Normal [facility] US PREG BIOPHY W NON STRESSo [...] by: MELITA MARTINEZ Date: 2022-04-27 16:18 Normal [facility] US PREG BIOPHY W NON STRESSo [...] by: MELITA MARTINEZ Date: 2022-04-20 19:03 Normal [facility] US PREG GROWTHon 04-11-2022 US PREG [...] by: ELIAS YOUNG Date: 2022-04-11 18:41 Normal [facility] GLUCOSE - 1HRon 03-21-2022 Glucose [Mass/Vol] 137 mg/dL Critically high 74-106 T [facility] Comment on above: Performed By: #### G LU1HR ####[facility] [address] [place] [address]Dr. Jerrod Bettencourt HEMOGRAM AND PLATELon 2021 Hematocrit (Bld) [Volume fraction] 36.1 % Normal 36.0-48.0 [facility] Comment on above: Performed By: #### H H ####[facility] [address] [place] [address]DrMoises Bettencourt Hemoglobin (Bld) [Mass/Vol] 12.4 g/dL Normal 12.0-16.0 [facility] Comment on above: Performed By: #### H H ####[facility] [address] [place], [place] [address]DrMoises Bettencourt MCH (RBC) [Entitic mass] 32.6 pg Normal 26.7-34.0 [facility] Comment on above: Performed By: #### H H ####[facility] [address] [place] [id number]. Jerrod Bettencourt MCHC (RBC) [Mass/Vol] 34.3 g/dL Normal 29.9-35.2 [facility] Comment on above: Performed By: #### H H ####[facility] [address] [place] [phone]. Jerrod Bettencourt MCV (RBC) [Entitic vol] 95.0 fL Normal 81.0-99.0 [facility] Comment on above: Performed By: #### H H ####[facility] [address] [place] [phone]. Jerrod Bettencourt PLT 203 103/ul Normal 150-450 [facility] Comment on above: Performed By: #### H H ####[facility] [address] [place] [phone]. Jerrod Bettencourt RBC 3.80 106/ul Critically low 4.20-5.40 [facility] Comment on above: Performed By: #### H H ####[facility] [address] [place] [phone]. Jerrod Bettencourt WBC 10.9 103/ul Normal 4.0-11.0 [facility] Comment on above: Performed By: #### H H ####[facility] [address] [place] [phone]. Jerrod Bettencourt TYPE AND SCREENon 03-21-2022 TYPE AND SCREEN Negative Normal [facility] Comment on above: Performed By: #### T NS ####[facility] [address] [place] [phone]. Jerrod Bettencourt CULTURE URINEon 02-20-2022 CULTURE URINE Culture Observations : LIGHT GROWTH OF MIXED GENITAL PALMER. NO POTENTIAL PATHOGENS SEEN. Normal [facility] Comment on above: Performed By: #### U RCX #### [facility] [address] [place], [place] [address] Dr. Jerrod Bettencourt UA RANDOM W/MICROSCOPICon BACTERIA MODERATE Abnormal NONE SEEN [facility] Comment on above: Performed By: #### R PRQ #### [facility] [address] [place] [address] Dr. Jerrod Bettencourt Bilirubin Ql (U) Negative Normal NEGATIVE [facility] Comment on above: Performed By: #### R PRQ #### [facility] [address] [place] [address] Dr. Jerrod Bettencourt CAST SEEN Abnormal NONE SEEN [facility] Comment on above: Performed By: #### R PRQ #### [facility] [address] [place] [address] Dr. Jerrod Bettencourt Clarity (U) CLEAR Normal CLEAR [facility] Comment on above: Performed By: #### R PRQ #### [facility] [address] [place] [address] Dr. Jerrod Bettencourt Color (U) LT. YELLOW Normal YELLOW [facility] Comment on above: Performed By: #### R PRQ #### [facility] [address] [place] [address] Dr. Jerrod Bettencourt Crystals LM Nom (Urine sed) NONE SEEN Normal NONE SEEN [facility] Comment on above: Performed By: #### R PRQ #### [facility] [address] [place] [address] Dr. Jerrod Bettencourt Epithelial cells LM Ql (Urine sed) MANY Abnormal NONE SEEN /RARE [facility] Comment on above: Performed By: #### R PRQ #### [facility] [address] [place] [address] Dr. Jerrod Bettencourt Glucose Ql (U) Negative Normal NEGATIVE [facility] Comment on above: Performed By: #### R PRQ #### [facility] [address] [place] [address] Dr. Jerrod Bettencourt Hemoglobin Ql (U) Negative Normal NEGATIVE [facility] Comment on above: Performed By: #### R PRQ #### [facility] [address] [place] [address] Dr. Jerrod Bettencourt HYALINE CAST FEW Normal [facility] Comment on above: Performed By: #### R PRQ #### [facility] [address] [place] [address] Dr. Jerrod Bettencourt Ketones Ql (U) Negative Normal NEGATIVE [facility] Comment on above: Performed By: #### R PRQ #### [facility] [address] [place] [address] Dr. Jerrod Bettencourt LEUKOCYTES LARGE Abnormal NEGATIVE [facility] Comment on above: Performed By: #### R PRQ #### [facility] [address] [place] [address] Dr. Jerrod Bettencourt MUCOUS TRACE Abnormal NONE SEEN [facility] Comment on above: Performed By: #### R PRQ #### [facility] [address] [place] [address] Dr. Jerrod Bettencourt Nitrite Ql (U) Negative Normal NEGATIVE [facility] Comment on above: Performed By: #### R PRQ #### [facility] [address] [place] [address] Dr. Jerrod Bettencourt pH (U) 7.5 [pH] Normal 5-9 [facility] Comment on above: Performed By: #### R PRQ #### [facility] [address] [place] [address] Dr. Jerrod Bettencourt RBC 0-2 Normal 0-2 [facility] Comment on above: Performed By: #### R PRQ #### [facility] [address] [place] [address] Dr. Jerrod Bettencourt SPEC GRAVITY 1.020 Normal 1.005-<=1.02 5 [facility] Comment on above: Performed By: #### R PRQ #### [facility] [address] [place] [address] Dr. Jerrod Bettencourt UA PROTEIN Negative Normal NEGATIVE/ TRACE [facility] Comment on above: Performed By: #### R PRQ #### [facility] [address] [place] [address] Dr. Jerrod Bettencourt Urobilinogen Qn (U) 0.2 {Tuan'U}/dL Normal 0.2 - 1. 0 [facility] Comment on above: Performed By: #### R PRQ #### [facility] [address] [place] [address] [address] Jerrod Bettencourt WBC 5-10 Abnormal NONE SEEN [facility] Comment on above: Performed By: #### R PRQ #### [facility] [address] [place] [address] [address] Jerrod Bettencourt US PREG ANATOMY SINGLEon [...] MELITA MARTINEZ Date: 2022-01-23 09:58 Normal [facility] AFP MATERNAL FOR SPINA BIFID Aon 01-19-2022 AFP MoM 0.62 Normal [facility] Comment on above: Performed By: #### A FPMAT ####[facility] [address] [place] [address]Dr. Jerrod Bettencourt AFP Value 32.3 ng/mL Normal [facility] Comment on above: Performed By: #### A FPMAT ####[facility] [address] [place] [address]Dr. Jerrod Bettencourt AFP, Serum for Spina Bifida Report Normal [facility] Comment on above: Performed By: #### A FPMAT ####[facility] [address] [place] [address]Dr. Jerrod Bettencourt Comment Comment Normal [facility] Comment on above: Result Comment: Fernandez Silverio, Ph.D., [facility] Director . References: Available Upon Request. . Multiples Of Median Cutoffs For AFP Elevations Weeks 2.5 Black 2.8 IDD 2.0 Twins 4.5 Abbreviation Definitions IDD - Insulin Dep Diabetes OSBR - Open Spina Bifida Risk . For further inquiries contact [employer] at [phone]. Performed By: #### A FPMAT ####[facility] [address] [place] [phone]. Jerrod Bettencourt Gest Age Collection Date 19.4 weeks Normal [facility] Comment on above: Performed By: #### A FPMAT ####[facility] [address] [place] [address]Dr. Jerrod Bettencourt Gestat, Age Based on LMP Normal [facility] Comment on above: Result Comment: Reca lculations are not recommended when gestational dating by LMP and ultrasound are within 10 days. Performed By: #### A FPMAT ####[facility] [address] [place] [address]Dr. Jerrod Bettencourt Insulin Dep Diabetes No Normal [facility] Comment on above: Performed By: #### A FPMAT ####[facility] [address] [place] [phone]. Jerrod Bettencourt Interpretation Comment Normal [facility] Comment on above: Result Comment: Inte [...] Customer Services to discuss available options. The [place] [employer] recommends amniocentesis be offered to women age 35 and older. Performed By: #### A FPMAT ####[facility] [address] [place] [phone]. Yioseas Bettencourt [age] Normal [facility] Comment on above: Performed By: #### A FPMAT ####[facility] [address] [place] [address]Dr. Jerrod Bettencourt Multiple Gestation No Normal [facility] Comment on above: Performed By: #### A FPMAT ####[facility] [address] [place] [phone]. Jerrod Bettencourt OSBR Risk 1 [place] [address] Normal [facility] Comment on above: Performed By: #### A FPMAT ####[facility] [address] [place] [address]Dr. Jerrod Bettencourt PDF . Normal [facility] Comment on above: Performed By: #### A FPMAT ####[facility] [address] [place] [address]Dr. Jerrod Bettencourt Race Normal [facility] Comment on above: Performed By: #### A FPMAT ####[facility] [address] [place] [address]Dr. Jerrod Bettencourt Test Results: Negative Normal [facility] Comment on above: Performed By: #### A FPMAT ####[facility] [address] [place] [address]DrMoises Bettencourt CHLAMYDIA/GONOCOCCUS KATHY (SW AB/URINE/PAPon 12-26-2021 Chlamydia trachomatis, KATHY Negative Normal Negative [facility] Comment on above: Performed By: #### R PRQ #### [facility] [address] [place] [address] [address] Jerrod Bettencourt Neisseria gonorrhoeae, KATHY Negative Normal Negative [facility] Comment on above: Performed By: #### R PRQ #### [facility] [address] [place] [address] [address] Jerrod Bettencourt VAGINITIS/VAGINOSIS DNA PROB Salvador 12-25-2021 Rosalinda species Negative Normal Negative [facility] Comment on above: Performed By: #### V AGINT ####[facility] [address] [place], [place] [address]Dr. Jerrod Bettencourt Gardnerella vaginalis Positive Abnormal Negative [facility] Comment on above: Performed By: #### V AGINT ####[facility] [address] [place] [phone] Bettencourt Trichomonas vaginalis Negative Normal Negative [facility] Comment on above: Performed By: #### V AGINT ####[facility] [address] [place], [place] [address]VtDr. Jerrod Bettencourt CULTURE URINEon 11-27-2021 CULTURE URINE Isolate 1 Staphylococcus epidermidis (pure growth) >100,000 cfu/mL of ORGANISM 1 Staphylococcus epidermidis (pure growth) ANTIBIOTIC M.I.C RX STATUS Beta-Lactamase Neg NEG F Cefoxitin Screen Neg NEG F Benzylpenicillin <=0.03 S F Gentamicin <=0.5 S F Ciprofloxacin <=0.5 S F Levofloxacin <=0.12 S F Moxifloxacin <=0.25 S F Inducible Clindamycin Resistance Neg NEG F Quinupristin/Dalfopri stin <=0.25 S F Linezolid 1 S F Vancomycin 1 S F Tetracycline <=1 S F Nitrofurantoin <=16 S F Rifampicin <=0.5 S F Trimethoprim/Sulfamet hoxazole <=10 S F Oxacillin <=0.25 S F Normal [facility] Comment on above: Performed By: #### U RCX #### [facility] [address] [place] [address] Dr. Jerrod Bettencourt HEP B SURFACE ANTIGEN SCREEN on 11-27-2021 HBsAg Screen Negative Normal Negative [facility] Comment on above: Performed By: #### R PRQ #### [facility] [address] [place] [address] [address] Jerrod Bettencourt HEPATITIS C VIRUS AB W/ REFL EX QUANTon 11-27-2021 HCV AB <0.1 Normal 0.0-0.9 [facility] Comment on above: Performed By: #### R PRQ #### [facility] [address] [place] [address] Dr. Jerrod Bettencourt Interpretation: Comment Normal [facility] Comment on above: Result Comment: Nega tive Not infected with HCV, unless recent infection is suspected or other evidence exists to indicate HCV infection. Performed By: #### R PRQ #### [facility] [address] [place] [address] Dr. Jerrod Bettencourt HIV 1 AND 2 WITH REFLEXon HIV Screen 4th Generation wRfx Non-Reactive Normal Non Reactive [facility] Comment on above: Result Comment: HIV Negative HIV-1/HIV-2 antibodies and HIV-1 p24 antigen were NOT detected. There is no laboratory evidence of HIV infection. Performed By: #### R PRQ #### [facility] [address] [place] [address] Dr. Jerrod Bettencourt RPR QUANTon 11-27-2021 Rapid Plasma Reagin, Quant Non-Reactive Normal NonRea<1:1 [facility] Comment on above: Performed By: #### R PRQ #### [facility] [address] [place] [address] Dr. Jerrod Bettencourt RUBELLA AB IGGon 11-27-2021 Rubella Antibodies, IgG 1.52 index Normal Immune >0.99 [facility] Comment on above: Result Comment: Non- immune <0.90 Equivocal 0.90 - 0.99 Immune >0.99 Performed By: #### R PRQ #### [facility] [address] [place] [address] Dr. Jerrod Bettencourt CBC AUTO DIFFon 11-25-2021 BASO # 0.0 103/ul Normal 0.0-0.1 [facility] Comment on above: Performed By: #### R PRQ #### [facility] [address] [place] [address] Dr. Jerrod Bettencourt Basophils/100 WBC (Bld) 0.3 % Normal 0.2-2.0 [facility] Comment on above: Performed By: #### R PRQ #### [facility] [address] [place] [address] Dr. Jerrod Bettencourt EO # 0.3 103/ul Normal 0.0-0.7 [facility] Comment on above: Performed By: #### R PRQ #### [facility] [address] [place] [address] Dr. Jerrod Bettencourt Eosinophils/100 WBC (Bld) 2.2 % Normal 0.9-7.0 [facility] Comment on above: Performed By: #### R PRQ #### [facility] [address] [place] [address] Dr. Jerrod Bettencourt Erythrocyte distribution width (RBC) [Ratio] 13.4 % Normal 11.0-15.0 [facility] Comment on above: Performed By: #### R PRQ #### [facility] [address] [place] [address] Dr. Jerrod Bettencourt Hematocrit (Bld) [Volume fraction] 39.5 % Normal 36.0-48.0 [facility] Comment on above: Performed By: #### R PRQ #### [facility] [address] [place] [address] Dr. Jerrod Bettencourt Hemoglobin (Bld) [Mass/Vol] 14.2 g/dL Normal 12.0-16.0 [facility] Comment on above: Performed By: #### R PRQ #### [facility] [address] [place] [address] Dr. Jerrod Bettencourt IG # 0.05 10e3/ul Critically high 0.00-0.03 [facility] Comment on above: Performed By: #### R PRQ #### [facility] [address] [place] [address] Dr. Jerrod Bettencourt IG % 0.4 % Normal 0.0-0.5 [facility] Comment on above: Performed By: #### R PRQ #### [facility] [address] [place] [address] Dr. Jerrod Bettencourt LYMPH # 2.8 103/ul Normal 1.2-3.8 [facility] Comment on above: Performed By: #### R PRQ #### [facility] [address] [place] [address] Dr. Jerrod Bettencourt Lymphocytes/100 WBC (Bld) 22.8 % Normal 20.5-60.0 [facility] Comment on above: Performed By: #### R PRQ #### [facility] [address] [place], [place] [id number] Dr. Jerrod Bettencourt MANUAL DIFF REQ NO Normal [facility] Comment on above: Performed By: #### R PRQ #### [facility] [address] [place] [address] Dr. Jerrod Bettencourt MCH (RBC) [Entitic mass] 31.6 pg Normal 26.7-34.0 [facility] Comment on above: Performed By: #### R PRQ #### [facility] [address] [place] [address] Dr. Jerrod Bettencourt MCHC (RBC) [Mass/Vol] 35.9 g/dL Critically high 29.9-35.2 [facility] Comment on above: Performed By: #### R PRQ #### [facility] [address] [place] [address] Dr. Jerrod Bettencourt MCV (RBC) [Entitic vol] 87.8 fL Normal 81.0-99.0 [facility] Comment on above: Performed By: #### R PRQ #### [facility] [address] [place] [address] Dr. Jerrod Bettencourt MONO # 0.8 103/ul Normal 0.3-0.8 [facility] Comment on above: Performed By: #### R PRQ #### [facility] [address] [place] [address] Dr. Jerrod Bettencourt Monocytes/100 WBC (Bld) 6.8 % Normal 1.7-12.0 [facility] Comment on above: Performed By: #### R PRQ #### [facility] [address] [place] [address] Dr. Jerrod Bettencourt NEUT # 8.2 103/ul Critically high 1.4-6.5 [facility] Comment on above: Performed By: #### R PRQ #### [facility] [address] [place] [address] Dr. Jerrod Bettencourt Neutrophils/100 WBC (Bld) 67.5 % Normal 43.0-75.0 [facility] Comment on above: Performed By: #### R PRQ #### [facility] [address] [place], [place] [address] Dr. Jerrod Bettencourt Platelet mean volume (Bld) [Entitic vol] 9.5 fL Normal 9.5-13.5 [facility] Comment on above: Performed By: #### R PRQ #### [facility] [address] [place] [address] Dr. Jerrod Bettencourt PLT 235 103/ul Normal 150-450 [facility] Comment on above: Performed By: #### R PRQ #### [facility] [address] [place] [address] [address] Jerrod Bettencourt RBC 4.50 106/ul Normal 4.20-5.40 [facility] Comment on above: Performed By: #### R PRQ #### [facility] [address] [place] [address] Dr. Jerrod Bettencourt WBC 12.2 103/ul Critically high 4.0-11.0 [facility] Comment on above: Performed By: #### R PRQ #### [facility] [address] [place] [address] [address] Jerrod Bettencourt GLYCOHEMOGLOBIN A1Con 2021 ADA RECOMMENDATION ADA THERAPEUTIC TARGET 6.0 - 7.0 ACTION SUGGESTED > 7.0 Normal [facility] Comment on above: Performed By: #### R PRQ #### [facility] [address] [place] [address] Dr. Jerrod Bettencourt Glucose [Mass/Vol] 94 mg/dL Normal [facility] Comment on above: Performed By: #### R PRQ #### [facility] [address] [place] [address] Dr. Jerrod Bettencourt HbA1c (Bld) [Mass fraction] 4.9 % Normal <=6.0 [facility] Comment on above: Performed By: #### R PRQ #### [facility] [address] [place] [address] Dr. Jerrod Bettencourt TYPE AND SCREENon 11-25-2021 TYPE AND SCREEN Negative Normal [facility] Comment on above: Performed By: #### T NS #### [facility] [address] [place] [address] Dr. Jerrod Bettencourt UA RANDOM W/MICROSCOPICon BACTERIA LARGE Abnormal NONE SEEN [facility] Comment on above: Performed By: #### U AMIC ####[facility] [address] [place] [address]Dr. Jerrod Bettencourt Bilirubin Ql (U) Negative Normal NEGATIVE [facility] Comment on above: Performed By: #### U AMIC ####[facility] [address] [place] [address]DrMoises Bettencourt CAST NONE SEEN Normal NONE SEEN [facility] Comment on above: Performed By: #### U AMIC ####[facility] [address] [place] [address]DrMoises Bettencourt Clarity (U) SL CLOUDY Abnormal CLEAR [facility] Comment on above: Performed By: #### U AMIC ####[facility] [address] [place] [address]Dr. Jerrod Bettencourt Color (U) LT. YELLOW Normal YELLOW [facility] Comment on above: Performed By: #### U AMIC ####[facility] [address] [place], [place] [address]Dr. Jerrod Bettencourt Crystals LM Nom (Urine sed) NONE SEEN Normal NONE SEEN [facility] Comment on above: Performed By: #### U AMIC ####[facility] [address] [place] [address]Dr. Jerrod Bettencourt Epithelial cells LM Ql (Urine sed) MODERATE Abnormal NONE SEEN /RARE [facility] Comment on above: Performed By: #### U AMIC ####[facility] [address] [place] [address]Dr. Jerrod Bettencourt Glucose Ql (U) Negative Normal NEGATIVE [facility] Comment on above: Performed By: #### U AMIC ####[facility] [address] [place] [address]Dr. Jerrod Bettencourt Hemoglobin Ql (U) TRACE-INTACT Abnormal NEGATIVE [facility] Comment on above: Performed By: #### U AMIC ####[facility] [address] [place], [place] [address]Dr. Jerrod Bettencourt Ketones Ql (U) Negative Normal NEGATIVE [facility] Comment on above: Performed By: #### U AMIC ####[facility] [address] [place] [address]Dr. Jerrod Bettencourt LEUKOCYTES LARGE Abnormal NEGATIVE [facility] Comment on above: Performed By: #### U AMIC ####[facility] [address] [place] [address]Dr. Jerrod Bettencourt MUCOUS NONE SEEN Normal NONE SEEN [facility] Comment on above: Performed By: #### U AMIC ####[facility] [address] [place] [address]Dr. Jerrod Bettencourt Nitrite Ql (U) Positive Abnormal NEGATIVE [facility] Comment on above: Performed By: #### U AMIC ####[facility] [address] [place] [address]Dr. Jerrod Bettencourt pH (U) 6.5 [pH] Normal 5-9 [facility] Comment on above: Performed By: #### U AMIC ####[facility] [address] [place], [place] [address]Dr. Jerrod Bettencourt RBC 2-5 Abnormal 0-2 [facility] Comment on above: Performed By: #### U AMIC ####[facility] [address] [place], [place] [address]Dr. Jerrod Bettencourt SPEC GRAVITY 1.020 Normal 1.005-<=1.02 5 [facility] Comment on above: Performed By: #### U AMIC ####[facility] T[address] [place], [place] [address]Dr. Jerrod Bettencourt UA PROTEIN Negative Normal NEGATIVE/ TRACE [facility] Comment on above: Performed By: #### U AMIC ####[facility] [address] [place], [place] [address]Dr. Jerrod Bettencourt Urobilinogen Qn (U) 0.2 {Tuan'U}/dL Normal 0.2 - 1. 0 [facility] Comment on above: Performed By: #### U AMIC ####[facility] [address] [place], [place] [address]Dr. Jerrod Bettencourt WBC 75-100 Abnormal NONE SEEN The [facility] Comment on above: Performed By: #### U [facility] ####[facility] [address] [place], [place] [address]DnMoises Bettencourt US PREG TVon 11-02-2021 US PREG [...] MELITA MARTINEZ Date: 2021-11-02 16:19 Normal [facility] Social History Date Type Detail Facility Start: 09-26-2023 End: 10-18-2023 Alcohol intake Ex-drinker (finding) [facility] Start: 09-24-2023 End: 10-18-2023 Sex Assigned At Female [facility] Start: 09-24-2023 Tobacco use and exposure Smokeless tobacco non-user [facility] Start: 09-24-2023 End: 10-18-2023 History of Social function [facility] Start: 06-14-2023 [facility] Start: 03-05-2023 End: 09-24-2023 Tobacco smoking status NHIS Never smoked tobacco (finding) [facility] Start: 2000 Sex Assigned At Female [facility] Start: 2000 Sex Assigned At Not on file P [facility] Tobacco [facility] Comment on above: denies Tobacco smoking status No Smokin g Status Entered [facility] Within the past 12 months we worried whether our food would run out before we got money to buy more. Never True [facility] Vital Signs Date Time Vital Sign Value Performing Clinician Facility 10-18-2023 10:29-0500 Body height 167.6 cm Verona Decker MD Work Phone: [facility] 10-18-2023 10:29-0500 Body mass index (BMI) [Ratio] 29.05 kg/m2 Verona Decker MD Work Phone: [facility] 10-18-2023 10:29-0500 Body weight 81.65 kg Verona Decker MD Work Phone: [facility] 10-18-2023 10:29-0500 Diastolic blood pressure 66 mm[Hg] Verona Decker MD Work Phone: [facility] 10-18-2023 10:29-0500 Heart rate 84 /min Verona Decker MD Work Phone: [facility] 10-18-2023 10:29-0500 Systolic blood pressure 113 mm[Hg] Verona Decker MD Work Phone: [facility] 01-11-2023 15:36-0400 Body temperature 97.88 [degF] Yash Medina [facility] 01-11-2023 15:36-0400 Diastolic blood pressure 81 mm[Hg] Yash Medina [facility] 01-11-2023 15:36-0400 Heart rate 79 /min Yash Medina [facility] 01-11-2023 15:36-0400 Respiratory rate 18 /min Yash Medina [facility] 01-11-2023 15:36-0400 SaO2% (BldA) [Mass fraction] 99 % Yash Medina [facility] 01-11-2023 15:36-0400 Systolic blood pressure 117 mm[Hg] Yash Medina [facility] 12-07-2022 23:00-0400 Diastolic blood pressure 75 mm[Hg] Yash Adam [facility] 12-07-2022 23:00-0400 Heart rate 74 /min Yash Adam [facility] 12-07-2022 23:00-0400 Mean blood pressure 90 mm[Hg] Yash Adam [facility] 12-07-2022 23:00-0400 Respiratory rate 16 /min Yash Adam [facility] 12-07-2022 23:00-0400 SaO2% (BldA) [Mass fraction] 98 % Yash Adam [facility] 12-07-2022 23:00-0400 Systolic blood pressure 120 mm[Hg] Yash Adam [facility] 12-07-2022 22:00-0400 Diastolic blood pressure 74 mm[Hg] Yash Adam [facility] 12-07-2022 22:00-0400 Heart rate 92 /min Yash Adam [facility] 12-07-2022 22:00-0400 Mean blood pressure 88 mm[Hg] Yash Adam [facility] 12-07-2022 22:00-0400 Systolic blood pressure 115 mm[Hg] Yash Adam [facility] 12-07-2022 21:30-0400 Body temperature 97.7 [degF] Yash Adam [facility] 12-07-2022 21:30-0400 Diastolic blood pressure 87 mm[Hg] Yash Adam [facility] 12-07-2022 21:30-0400 Heart rate 89 /min Yash Adam [facility] 12-07-2022 21:30-0400 Respiratory rate 20 /min Yash Medina [facility] 12-07-2022 21:30-0400 SaO2% (BldA) [Mass fraction] 97 % Yash Medina [facility] 12-07-2022 21:30-0400 Systolic blood pressure 139 mm[Hg] Yash Medina [facility] 01-19-2022 03:11-0400 Body weight 74.[address] WHITAKER LISTED REQUEST The [facility] Comment on above: Performed By: #### AFPMAT ####[facility] [address] [place], [place] [address]Ro. Jerrod Sg Functional Status Date Assessment Result Facility 01-11-2023 Functional Status N/A [facility] 12-07-2022 Functional Status N/A [facility] Clinical Notes 06-02-2022 to 10-18-2023 Verona Decker [...] Medical History: Diagnosis Date Anxiety Bipolar disorder ([facility]) Chronic cholecystitis Depression SURGICAL HISTORY: Past Surgical [...] TESTS AND ULTRASOUND REPORTS: Referral [facility] and [facility] were reviewed Pertinent Ultrasound findings [...] of level 2 anatomy ultrasound, scheduled through [facility] Patient to return in 12 weeks at 32 weeks' gestation for re-evaluation of bilateral urinary tract dilation, scheduled through [facility] DISPOSITION: At this point the patient is in complete care of her car retarder operator. Patient does have ultrasound scheduled with us. Thank you for allowing me to participate in the care of Darline Matthew BloomFalcon. If there any questions please do not hesitate to contact us. Total time spent was 42 minutes: Preparing to see the patient (e.g., review of tests) Obtaining and/or reviewing separately obtained history Performing a medically appropriate examination and/or evaluation Counseling and educating the patient/family/caregiver Ordering medications, tests, or procedures Referring and communicating with other health adult daycare coordinator (not separately reported) Documenting clinical information in the electronic or other health record Verona Decker MD Maternal- Medicine [facility] [address] [facility] [address] [place] [address] [facility], the CDC, and other organizations representing maternal and public health professionals recommend that , , and lactating people and those considering receive the COVID-19 vaccination. Vaccination is the best method to reduce maternal and complications of SARS-CoV-2 infection. This document was created with [employer] technology. Though I make every effort to review the dictation as it is transcribed, on occasion the spoken word can be misinterpreted by the technology leading to inappropriate words, phrases, or sentences. This note is addressed to the requesting provider as a consultation for clinical guidance. Specific medical abbreviations are occasionally used and those are generally approved by the [place]?Board of?Obstetrics and?Gynecology?as well as?Gayle turner abbreviations. The above plan of care was based solely on the diagnoses for which a consultation was requested. ?More frequent testing may be indicated based on her other medical/obstetrical conditions. The management of other or medical conditions is beyond the scope of requested consultation and will continue to be followed by the primary car retarder operator or primary care provider. Note to patient: The 21st Century Cures Act makes medical notes like [...] male Have you been seen here at [facility] in a previous ? No Recent ER visits or hospitalizations? No Bring blood sugar log or meter with you today? (Please bring them with you for every visit at [facility]) n/a Traveled outside the country in the past 6 month no Any concerns that you would like me to mention to the provider today? No documented in this encounter [facility] 01-11-2023 Hospital Discharg e instructions Patient Education [...] are sitting or lying down. Medicines Take htsv-gdu-lazegkg and prescription medicines only as told by [...] provider. Document Revised: 07/13/2021 Document Reviewed: 07/13/2021 [employer] Patient Education 2022 [employer] 01/11/2023 17:05:20 Contusion Contusion A contusion [...] sitting or lying down. General instructions Take nqyb-rwc-xvplnoh and prescription medicines only as told by [...] compression, and elevation. You may be given bwjr-fav-borfaye medicines for pain. Contact a health care [...] provider. Document Revised: 07/04/2022 Document Reviewed: 06/15/2022 [employer] Patient Education 2022 [employer]. Follow Up Care 01/11/2023 15:31:57 With:Madhavi Bustamante Address: [address] [place] [address]- Business (1) When:01/14/2023 16:47:05 [facility] 01-11-2023 Evaluation + Plan note Extrac yolanda from: Title:ED Note Author:Derek Salcido PA-C te:01/11/23 Finger sprain (S63.619A: Uns pecified sprain of unspecified finger, initial encounter) Hand contusion (S60.229A: Contusion of unspecified hand, initial encounter) Orders: Finger Splint Application XR Hand 3+ Views Left [facility]04-07-2023 Hospital Discharge instructions Patient Education 12/07/2022 [...] water added (diluted fruit juice). Eat bland, bimu-kb-pzxwkq foods in small amounts as you are able. These foods include bananas, applesauce, rice, lean meats, toast, and crackers. Avoid fluids that contain a lot of sugar or caffeine, such as energy drinks, sports drinks, and soda. Avoid alcohol. Avoid spicy or fatty foods. General instructions Take zooq-lzi-rzkkuag and prescription medicines only as told by your health care provider. Drink enough fluid to keep your urine pale yellow. Wash your hands often using soap and water. If soap and water are not available, use hand clinical sales consultant. Make sure that all people in your [...] eating and drinking to prevent dehydration. Take ygrg-xcl-odubzsw and prescription medicines only as told by [...] 08/20/2006 Document Revised: 12/12/2019 Document Reviewed: 01/28/2019 [employer] Patient Education 2020 [employer] 12/07/2022 23:48:57 Cholelithiasis Cholelithiasis Cholelithiasis is a [...] family history of gallstones. Being of or [place] descent. Having an intestinal disease such as [...] gallstones. Follow these instructions at home: Take qupp-fsi-moyfiye and prescription medicines only as told by [...] 08/16/2006 Document Revised: 08/02/2018 Document Reviewed: 05/06/2017 [employer] Patient Education 2020 [employer]. Follow Up Care 12/07/2022 21:26:38 With:Fernando Clark Address: [address], [address] [place] [phone] Business (1) When:12/10/2022 Comments:General surgeon in [place] With:Willie LOZADA Address: [address], [address] [address]- Business (1) When:12/10/2022 Comments:General surgeon at [place] With:Please return to the ED with any new or worsening symptoms including worsening pain, fevers and chills, worsening nausea and inability to tolerate a liquid diet. Address:Unknown When: Unknown With:You may follow with the general surgeon recommended to by your primary care provider. You have alsobeen provided with the information for the local [facility] general surgeons. Address:Unknown When: Unknown [facility]04-06-2023 Evaluation + Plan noteExtracted from: Title:ED Note Author:Lupis Miller PA-C e:12/07/22 Cholelithiases (K80.20: Calc ulus of gallbladder without cholecystitis without obstruction) Nausea (R11.0: Nausea) Orders: dicyclomine, 10 mg = 1 cap(s), Oral, QID, PRN Pain, X 7 day(s), # 28 cap(s), Refills(s) 0, [id number], 167.6, cm, 12/07/22 21:32:00 EDT, [...] day(s), # 12 tab(s), Refills(s) 0, Pharmacy: [facility]/pharmacy #[id number], 167.6, cm, 12/07/22 21:32:00 EDT, Height/Length [...] Diagnostic Tests Pending * Urine Culture 12/07/22 [facility]04-03-2023 Evaluation + Plan note Diagnostic Tests Pending * ANGEL w/Reflex if POS 12/04/22 [facility]09-30-2022 NoteOP Note OPERATION DATE: 06/03/2022 PROCEDURE: Primary low transverse section. PREOPERATIVE DIAGNOSIS: 1. Intrauterine 39 weeks. 2. Failure to induce. 3. Maternal discomfort. 4. Maternal intolerance to labor, requesting . POSTOPERATIVE DIAGNOSIS: 1. Intrauterine 39 weeks. 2. Failure to induce. 3. Maternal discomfort. 4. Maternal intolerance to labor, requesting . ANESTHESIA: Spinal with Duramorph. SURGEON: John Wilson D.O. TELECOMMUNICATIONS PROJECT MANAGER: JOSÉ Burnham URINE OUTPUT: Yellow and clear. [...] to the Recovery Room in stable condition.[id number] Note DISCHARGE SUMMARY DISCHARGE DATE: 06/17/2022 PRIMARY [...] pain free and no longer on narcotics.[facility] [id number] NoteOPERATIVE NOTE OPERATION DATE: 06/04/2022 PROCEDURE: Primary low transverse section. PREOPERATIVE DIAGNOSIS: 1. Intrauterine 39 weeks. 2. Failure to induce. 3. Maternal discomfort. 4. Maternal intolerance to labor, requesting . POSTOPERATIVE DIAGNOSIS: 1. Intrauterine 39 weeks. 2. Failure to induce. 3. Maternal discomfort. 4. Maternal intolerance to labor, requesting . ANESTHESIA: Spinal with Duramorph. SURGEON: John Wilson D.O. TELECOMMUNICATIONS PROJECT MANAGER: JOSÉ Burnham URINE OUTPUT: Yellow and clear. [...] to the Recovery Room in stable condition.[facility] HospitalEvaluation noteNo assessment information availableU[facility] Work Phone: Evaluation note* Diagnosis 20 weeks gestation of - Primary Abnormal thyroid function test Nonspecific abnormal results of thyroid function study Bipolar affective disorder, remission status unspecified ([facility]) Depression affecting Pyelectasis of fetus on ultrasound documented [facility] Diagnosis Abnormal thyroid function test- Primary Nonspecific abnormal results of thyroid function study Pyelectasis of fetus on ultrasound [facility] N[facility]ative No data available for this section [facility] No data available for this section [facility] HospitalInstructionsNot on filedocumented in this encounter [facility] SystemInstructionsNot on filedocumented in this encounter [facility]ructionsNot on filedocumented in this encounter [facility] SystemProgress note No data available for this section [facility] Summary Purpose Family History No Family [...] MD [address] [place] [address] [facility] [address] [place] [address] Referral ID Status Reason Start Date Expiration Date V isits Requested Visits Authorized [id number] Pending Review 10/19/2023 10/18/2024 1 1 Additional Source Comments INFORMATION SOURCE (unrecogn ized section and content) DATE CREATED AUTHOR 11/01/2022 [facility] DATE CREATED AUTHOR AUTHOR'S ORGANIZ ATION 01/12/[address] [facility] DATE CREATED AUTHOR AUTHOR'S ORGANIZ ATION 01/13/2024 [facility] DATE CREATED AUTHOR AUTHOR'S ORGANIZ ATION 03/04/2024 [facility] DATE CREATED AUTHOR AUTHOR'S ORGANIZ ATION 03/07/2024 [facility] EPIC Patient Care team [...] BE BASED ON THE PRIMARY CLINICAL RECORDS. [facility] [employer] [facility]. provides no warranty or guarantee of the accuracy or completeness of information in this document.
== END 2024-03-02 15:10 | disposition home or self-care (01) | DRG 785 ==
PROVIDERS: Admitting Provider Obstetrics & Gynecology; PCP Student in an Organized Health Care Education/Training Program; Visit Provider Obstetrics & Gynecology Gynecology
PROC: 10D00Z1 Extraction of Products of Conception, Low, Open Approach (ICD-10-PCS; CPT 59514; principal; 2024-02-29 07:30)
DX: O34.211 Maternal care for low transverse scar from previous cesarean delivery (principal); Z3A.39 39 weeks gestation of pregnancy; Z37.0 Single live birth; O26.893 Other specified pregnancy related conditions, third trimester; Z67.11 Type A blood, Rh negative; Z90.49 Acquired absence of other specified parts of digestive tract; O99.284 Endocrine, nutritional and metabolic diseases complicating childbirth; E07.9 Disorder of thyroid, unspecified
CPT/HCPCS: 36415; 59050; 80307; 85025; 85027; 86850; 86900; 86901; 88302; 94667; 94668; 96372; 96374; 96375; 96376; J0690; J1100; J1650; J1885; J2274; J2371; J2405; J2590; J2765

== ENCOUNTER 2024-05-19 20:57 | Outpatient (REF) | payer BC, OTHER, SELFPAY ==
--- OUTSIDE RECORDS SUMMARY | 2024-05-19 21:02 | XMS_ITS | CCD ---
Author Organization [facility] Care Team Providers Care Automation Engineering Manager Name Role Phone REQUEST, DR SHERMAN LISTED [...] KATIE ., DR HARKINS Admitting Unavailable DBOUK, ARTIS Consulting Unavailable FLORENTINO BOWEN Consulting Unavailable KATIE [...] Unavailable KATIE ., DR HARKINS Attending Unavailable CONESTOGA, DR ELIAS Saenz Consulting Unavailable REQUEST, DR NONE LISTED Primary Care Unavaila ble KATIE ., DR HARKINS Consulting Unavailable REQUEST, DR NONE LISTED Primary Care Unavaila ble KATIE ., DR HARKINS Admitting Unavailable KATIE ., DR HARKINS Attending Unavailable CONESTOGA, DR ELIAS Saenz Consulting Unavailable KATIE ., DR HARKINS Consulting Unavailable REQUEST, DR NONE LISTED Primary Care Unavaila ble KATIE ., DR HARKINS Attending Unavailable KATIE ., DR HARKINS Consulting Unavailable KATIE ., DR HARKINS Admitting Unavailable Madhavi Bustamante Primary Care Physician [phone] Madhavi Bustamante Referring Unavailable Madhavi Bustamante Attending Unavailable Madhavi Bustamante Admitting Unavailable Yash Medina Attending Unavailable Yash Medina Attending Unavailable DO Angus Benedict Attending Provider [phone] MD Madhavi Bustamnate Primary Care Provider Unavaila ble Unavailable Primary Care Provider Unavailabl e JOHN WILSON R Referring Unavailable KATIEJOHN R Referring Unavailable KATIE, JOHN R Referring Unavailable DECKER, VERONA Attending Unavailable KATIE, JOHN R Referring Unavailable DECKER, VERONA Referring Unavailable Madhavi Bustamante Primary Care Unavailable nAgus Benedict Admitting Unavailable Angus Benedict Attending Unavailable [...] JOHN Attending Unavailable KATIE, JOHN Attending Unavailable MADHAVI BUSTAMANTE Attending Unavailable KATIE, JOHN Attending Unavailable KATIE, JOHN Attending Unavailable Medications Current Medications Medication [...] f41.1, # 30 tab(s), Refills(s) 2, Pharmacy: [facility]/pharmacy #[id number], 168, cm, 05/19/20 1:25:00 [...] day(s), # 28 cap(s), Refills(s) 0, Pharmacy: [facility]/pharmacy #6173, 167.6, cm, 12/07/22 21:32:00 [...] Daily, # 30 tab(s), Refills(s) 5, Pharmacy: [facility]/pharmacy #6173, 168, cm, 05/19/20 1:25:00 EDT, Height/Length Dosing, 90, kg, 05/19/20 1:25:00 EDT, Weight Dosing Start Date: 06/17/20 Status: Ordered levonorgestrel 0.643337 mg/hr intrauterine system (4 sources) Progestin, Progestin-containing [...] BID, # 60 tab(s), Refills(s) 5, Pharmacy: [facility]/pharmacy #6173, 168, cm, 05/19/20 1:25:00 [...] Pain, # 20 tab(s), Refills(s) 0, [facility] 168, cm, 05/07/21 16:26:00 EDT, Height/Length Dosing, 80, kg, 05/07/21 16:26:00 EDT, Weight Dosing Start Date: 05/07/21 Status: Ordered Start: 05-19-2020 take 1 tablet by maribell th twice daily Naprosyn 500 mg Tab 500 mg = 1 tab(s), Oral, BID, # 20 tab(s), Refills(s) 0, Pharmacy: [facility]/pharmacy #6173, 168, cm, 05/19/20 1:25:00 [...] day(s), # 12 tab(s), Refills(s) 0, [facility], 167.6, cm, 12/07/22 21:32:00 EDT, [...] Daily, # 30 tab(s), Refills(s) 5, Pharmacy: [facility]/pharmacy #6173, 168, cm, 05/19/20 1:25:00 [...] source) Other mental disorders complicating childbirth; Translations: [OT MENTAL D/O COMP CHILDBIRTH] Onset: 06-19-2022 Episodic [...] Test Name Value Interpretation Reference Range Facility [facility] 02-29-2024 L Specimen: [id number] Received: 02/29/24 Status: JULIEN Weldon Num: [id number] Spec Type: Surgical Subm Dr: John Wilson Tissues: A Fallopian Tube - Sterilization (BILATERAL FT) Procedures: HE/2, Gross/Micro L2 Age/ Patient Sex Location Account Attending Physician Darline Falcon 23/F LABELL [id number] John Wilson SPEC NUM: [id number] RECD: 02/29/24 STATUS: JULIEN WELDON NUM: [id number] CLAY: 02/29/24- SUBM DR: John Wilson ENTERED: 02/29/24 [facility] DR: Esteban,Lab SPEC TYPE: Surgical DEPT: KAYLEE [...] luminal center lined by unremarkable vergara mucosa. Director Cardiovascular sections of each tube are submitted in A1 (tube #1) and A2 (tube #2). TW -------- Specimen: [id number] Received: 02/29/24 Status: JULIEN Weldon Num: [id number] Spec Type: Surgical Subm Dr: John Wilson Tissues: A Fallopian Tube - Sterilization (BILATERAL FT) Procedures: Saranya ALDRIDGE/Ariel L2 -------- Patient: Darline Falcon [id number] (Continued) -------- Specimen: [id number] Received: 02/29/24 (Continued) Signed (signature on file) Gloria Bettencourt MD 03/03/242024 -------- Specimen: [id number] Received: 02/29/24 Status: JULIEN Weldon Num: [id number] Spec Type: Surgical Subm Dr: John Wilson Tissues: A Fallopian Tube - Sterilization (BILATERAL FT) Procedures: Saranya ALDRIDGE/Ariel L2 -------- Patient: Darline Falcon [id number] (Continued) -------- Specimen: [id number] Received: 02/29/24 (Continued) CPT Codes 76306 -------- -------- Specimen: [id number] Received: 02/29/24 Status: JULIEN Weldon Num: [id number] Spec Type: Surgical Subm Dr: John Wilson Tissues: A Fallopian Tube - Sterilization (BILATERAL FT) Procedures: HE/2, Gross/Micro L2 -------- Patient: Darline Falcon [id number] (Continued) -------- Signed (signature on file) Vasu-Efren Bettencourt MD 03/03/242024 Normal [facility] THYROID PROFILEon 10-18-2023 Free T4 [Mass/Vol] 0.70 ng/dL Normal 0.61-1.60 [facility] Comment on above: Performed By: #### T HYR #### [facility] ([id number]) [address], [address] [place] [address] TSH 0.72 uIU/mL Normal 0.49-4.67 [facility] Comment on above: Performed By: #### T HYR #### [facility] ([id number]) [address] [facility] [address] [place] [address] Thyroid profile includes TSH FT4on 10-18-2023 Free T4 [Mass/Vol] 0.70 ng/dL 0.61 - 1. 60 ng/dL [facility] TSH Qn 0.72 m[IU]/L [facility] Free Cell DNAon 2022 [facility] Alkaline Phosphataseon 03-19 ALP [Catalytic activity/Vol] 71 U/L Normal 34-104 [facility] Comment on above: Performed By: #### B ILTD, LIPASE, SLOANE, ALP #### [place] [id number] [place] Amylaseon 03-19-2023 Amylase [Catalytic activity/Vol] 71 U/L Normal 29-103 [facility] Comment on above: Performed By: #### B ILTD, LIPASE, SLOANE, ALP #### [address] Bilirubin, Total and Directo n 03-19-2023 Bilirubin [Mass/Vol] 1.0 mg/dL Normal 0.3-1.0 [facility] Comment on above: Performed By: #### B ILTD, LIPASE, SLOANE, ALP #### [address] Bilirubin,Indirect 0.9 mg/dL Normal The Pending [facility] Comment on above: Performed By: #### B ILTD, LIPASE, SLOANE, ALP #### [address] Bilirubin.indirect [Mass/Vol] 0.10 mg/dL Normal 0.03-0.18 [facility] Comment on above: Performed By: #### B ILTD, LIPASE, SLOANE, ALP #### [address] HCG,Urineon 03-19-2023 Beta HCG ( test) Ql (U) Negative Normal [facility] Comment on above: Result Comment: PERF ORMED BY: [address] [place] [address] PATHOLOGIST ENGINEERING MATHEMATICIAN BARBARA FERNANDEZ M.D. Performed By: #### U HCG #### [address] Juan 03-19-2023 L - -------- Specimen: [id number] Received: 03/19/23 Status: JULIEN Jeniffer Num: [id number] Spec Type: Surgical Subm Dr: Angus Benedict DO Tissues: A Gallbladder (GALLBLADDER) Procedures: HIEN, Gross/Micro L3 -------- Age/ Patient Sex Location Account Attending Physician -------- Darline Falcon [place] [id number] Angus Benedict DO -------- SPEC NUM: [id number] RECD: 03/19/23 STATUS: JULIEN JENIFFER NUM: [id number] CLAY: 03/19/[address] [facility] [address]: Angus Benedict DO ENTERED: 03/19/23 CLARISA JOHNSTON: EARL TYPE: Surgical DEPT: S ORDERED: HIEN, Gross/Micro L3 ORDERED: HIEN, Gross/Micro L3 Pathological [...] identified with a rubbery, yellow-vergara cut surface. Director Cardiovascular sections are submitted in one cassette labeled A1. -------- Specimen: [id number] Received: 03/19/23 Status: JULIEN Weldon Num: [id number] Spec Type: Surgical Subm Dr: Angus Benedict DO Tissues: A Gallbladder (GALLBLADDER) Procedures: Saranya STANFORD/Ariel L3 -------- Patient: Darline Falcon [id number] (Continued) -------- Specimen: [id number] Received: 03/19/23 (Continued) Signed (signature on file) Haile Dc MD 03/21/23 1203 -------- Specimen: [id number] Received: 03/19/23 Status: JULIEN Jeniffer Num: [id number] Spec Type: Surgical Subm Dr: Angus Benedict DO Tissues: A Gallbladder (GALLBLADDER) Procedures: Saranya STANFORD/Ariel L3 -------- Patient: Darline Falcon [id number] (Continued) -------- Specimen: [id number] Received: 03/19/23 (Continued) Microscopic Description One H E slide reviewed. The microscopic examination confirms the diagnosis. CPT Codes 99097 -------- -------- Specimen: [id number] Received: 03/19/23 Status: JULIEN Weldon Num: [id number] Spec Type: Surgical Subm Dr: Angus Benedict DO Tissues: A Gallbladder (GALLBLADDER) Procedures: Saranya STANFORD/Ariel L3 -------- Patient: Darline Falcon [id number] (Continued) -------- Signed (signature on file) Haile Dc MD 03/21/23 1203 Normal [facility] Lipaseon 03-19-2023 Lipase [Catalytic activity/Vol] 32.0 U/L Normal 11.0-82.0 [facility] Comment on above: Result Comment: PERF ORMED BY: [facility] [place] [address] PATHOLOGIST ENGINEERING MATHEMATICIAN BARBARA FERNANDEZ M.D. Performed By: #### B ILTD, LIPASE, SLOANE, ALP #### [facility] [address] [id number] [facility] Discharge Instructionson Discharge Instructions [id number] .00CD:[address] [facility] Consent for Treatmenton 01-01 Consent for Treatment [id number] .00CD:[address] [facility] ED Clinical Summaryon 2022 ED Clinical Summary [address] [address] ED Clinical Summary Person Information Name: DARLINE FALCON [facility] Age: 22 Years : 2000 Sex: Female Language: Nigerian PCP: Dianna PALOMO, Madhavi Saarvia Marital Status: Single Phone: [phone] Visit Id: Visit Reason: Wrist pain-swelling; Hand [...] 01/11/2023 17:05:20 01/11/2023 17:05:20 01/11/2023 17:05:20 ADDRESS: [address] [place] [phone] PHYS DOC NOTES: MEDICAL INFORMATION: Prescriptions Given: [...] Address: When: Madhavi [place] [place] [address] [employer] (1) In 3 days 01/14/2023 DIAGNOSIS: Finger sprain; Hand contusion Normal [facility] ED Note-Physicianon 01-12-20 ED Note-Physician [...] days 01/14/[address] [place] [address]- Business (1) Additional Instructions: Patient Education Finger Sprain, Adult Contusion Attestation Patient seen and evaluated by the physician office assistant. Attending physician was present in the emergency department and supervised care. This visit was performed by both the physician and an APC. I performed all aspects of the MDM as documented. This report was transcribed using voice recognition software. Every effort was made to ensure accuracy, however, inadvertently computerized information developer mistakes may be present. Appropriate healthcare PPE [...] oblique views (more content not included)... Normal [facility] Comment on above: [...] sitting or lying down. Medicines ? Take apcg-xax-xgvwhmu and prescription medicines only as told by [...] provider. Document Revised: 07/13/2021 Document Reviewed: 07/13/2021 [employer] Patient Education ? 2022 [employer] Contusion A contusion is a deep [...] any abernathy (more content not included)... Normal [facility] ED Patient Summaryon 023 ED Patient Summary [address] [address] Patient Discharge Instructions Person Information Name: DARLINE FALCON Age: 22 Years Arrival Date: 01/11/2023 15:30:18 Discharge Diagnosis: Finger sprain; Hand contusion Primary Care Physician: Madhavi Bustamante MD Provider Information Primary Provider: Yash Medina DO Advanced Labeling Machine Operator:Derek Salcido PA-C The exam and treatment you received in the Emergency Department were for an urgent problem and are not intended as complete care. It is important that you follow up with a doctor, nurse practitioner, or physician?s office assistant for ongoing care. If your symptoms [...] With: Address: When: Madhavi Bust[place] [place] [address] Business (1) In 3 days 01/14/2023 In the event that this physician does not participate in your insurance network, please consult with your insurance company to find a nearby participating provider. Patient Education Materials: Finger Sprain, Adult; Contusion A MESSAGE TO ALL PATIENTS REGARDING OPIOIDS PRESCRIPTION OPIOIDS: WHAT YOU NEED TO KNOW Prescription opioids can be used to help relieve qubtikzh-uu-wvzzsj pain and are often prescribed following a [...] be struggling with addiction, tell your health foster care case manager and ask for guidance or call [employer]?S National Helpline at 7-578-271-HELP. (more content not included)... Normal [facility] XR Hand 3+ Views Lefton 05 XR Hand 3+ Views Left Exam Date/Time: [...] mGy = na DAP = na Normal [facility] Coding Summary.on 12-12-2022 Coding Summary. CD:[id number] W w+PGhlYWQ+ZN6RKBUqN63 ebPFnjW1rF2UGZWgZNjrc XKXOKAcQKdVvvoUdPS9qx XNjZXJu IC8+PY2hRZPrGmehhWWip 9Q8yUH1P55lca9kZLjtaD F4VZDmOsOwoblhl8lssQy 6IDcuNmluOyBt LNJiqV23VAG0sO25Xk06j JKujQMkh5rchEh9ZpBeAS VgLHO7tMniPAhwx5KdQBE hU95xdFEye0Q2 XFFzoBbdjVSyGxRzjNM8x Y9hVVcdfllyy0jpfawvRk u3wj79iZEgm0G4lIM0U4P gvvN2MLBqqMGn HyezuMBUjD1mgeuzi7wdq tquSxBoIIHtFQn0OWx5FE BekIbpYrRgSV05DAQ6GII qxyFnA8LkEYFx aPoaSyI4y8P1Xc4HP7BQH tnbI3RDAOGYFRretNB+PC 92px18T7HjOnjkSqt7REZ qZSZ2sKO5eY1c YHJkWKiin7S5bCS1H4Npn qKevp0zt9wmKWXsSZocM2 1tpAMvv2U7HFCrfHZ1IMI ayBrvEyYjoU86 Oyc+ZIAavLhot1YtKvhjm 5ocp4inmJz6OwvuZRFugi LdsQshFVD5r7ZjGy1tKJH pqRU3bUY0uT1k CcWvHfX0HPrsC395PoJar BDrEoyxE44uR0BneDA+PH AzRiq0HZVprDzuCZ2dY3Y hZGRpbmctbGVm eQcwTX7rEBZngzpzPUZiy V9aFLHwN2w3NtHdSkM2KB feD7FpXWSskegmMy15cJ2 fKzUgQuI1YXrg S8QedjV7IKTjcJBiOJegC DY7B62ek6K9TXHyLKArWP B3uFQ0pB5dtTskeiuztQX mdDsgdmVydGlj SAdrDUusJ318ZTMjyOmuK kNvZGluZyBEYXRlOiAgMD QvMTEvMjAyMzwvdGQ+PHR oLXF5hRofRITz sJFiNTkaGn2fbRowmFonN S7wWTIrqwrrUAIurL7bYB HvtJUtgBrsMP4cBTCkzpq yy302WqQdNAA9 HFIsxRKbF2UybR1uVfNuJ NIsUFViD5QdzXPvBNjcK1 29PSgoHcZ5FKVwqcStT0J sLWFsaWduOiB0 t9P5Er8Lp1WhavtuX7Yzf IHsNlTgGoodRFq3B6PiNl wvdHI+XM16CMSdVN65OGd 8BCD0sTidESnm UTUrO6QtcF2hRaIvWJZqQ GRkOyc+PHRhYmxlIHdpZH RoPScxMDAlJyBzdHlsZT0 sNm5sDRPkZHUb fQlpgMLrGqApt3pwDVCrW HzgMU8bvIvzO1NrnCB9FU Dix2m2Rv31P97eB4BjgQV +DQWotFY0nIY2 rJ3eNgBdIvS3SVszV499Q qWgvQIeMewku5epr1kzvJ r4CbF7LNBzzeUvoOtyNZY 7t8PtDa77P86t IHdpZHRoPSIxNSUiIHZhb Zqlif7liA6vDx5+PGNvbC I2nJK4fZ5dHtJrLtG8FHd yJ099GhKkmCYl Qpvbz7wjp0ntaQt1TeBsS ZGtyvKdyGvlBJA5a5DaZh 98X6LqyObpw0GhFlw8yc8 1hBXby8O6cOY9 T5ZrZFBhnzbzaSXioTkdN F7sTUFhuirqLKYfyS5rRW JwU4y5HtPiOoO8PBjgP6K zeiP2SQKmhUEe WEKuuYQItO1stvnqt9jyw sbuBlAwCASeONc4OXg2ZR VecKgnBrNjNYT8IeB9NTH 7wTHbpV2qiQtn fflrwD0zXbo+MYT3tLBts UZQIB7aVqktxWC+PHRkIH N0dXdmDOryMVBwzK5uQPG cI8l4HpIpWzF2 ASrbT3GbeoH5XDHkaIGbD SNfuUYDeR3aivhip2muwg ciJbNnLGFmCQx7VKy3DJM saWduOiBsZWZ0 FzU0JXG4bESwwV4rvBasb qhioM9jQrj+QmlydGggRG L5CHc3N7LoUha9UQKvpMx rLB5jiMHsOQdp Us4asOmtfVsfBB8wHODqr ysni844SxCie7epBHZelR UtGMmdYTY8Q86jk9H7CRI iEGZyXLO5kMC5 pI6zyBlkcplitENjlImcx hZycLtmLSjlMGtzI279MB DelBjiXiTnDUe1A8GeWzk 3DOYdlEwyQZ3h eHHcEQnzBl9tfStwzEgxK X2yJUBqireuc877YiTqk0 ugURDuxUToCIhiOVN3X67 da5S4AOCuXAOv LYW6nTH4bD7ztMruwkfyh GVmdDsgdmVydGljYWwtYW lkK182RTKfhIfhKfJubHw 7N2BtNrn3PHFv dObrOD9ytWYhZAnyNq8fj FpjxCiyAV5wMIRhqqvoh9 17IzWeb3ykUHYxoPOeQEq zHRV9U14nd5B7 NLHlTKVdYNR7jRH0mM3gl GlnbjogbGVmdDsgdmVydG luFEffVAxyM680UCMnyZw nPlBhdGllbnQg YKabIZq7N6JyAhssoSS+P I44VDZjOC77gMAopNUzq6 rdeMe0EsGzTTPgULU5rGb jXVgms3EoQHDf E73qhSUxj0H5PLThgLwqc VAnOqExhPN3lY3eREywjk utf6ysajapPgfln4lbys1 2fT68A05pCZoj ZHRoPSIzMCUiIHZhbGlnb n5ieT0vJq3+IUFkuQI5gI X0aG7cQUVsTcU8NUmtO74 9InRvcCIvPjxj y7hfc5sonZf0FoL2SLJib uJghIhsIPF1g1KqYf92U0 9sIHdpZHRoPSIyMCUiIHZ liVgcdd2xaV7k Ii8+SDZdjMW7oOC6mY0rM kNrIiU6DGmbC847GaOvdW PqVvuvM52pG1KwjAL+PHR jAxd5FWXtpJav AK4fpTVnXMafMg1gYCW1I pCkXpRsCCwyC1RaUXFxfa gavfbbnGD3XAEhZPGqeQ4 7Ze2iyHbtTXKs uFMZyZ0pfbqyf5dydtwbP jQzDNAxIPz8PKm0MLSfwK qgTzTnEQW3SqF7FEH2xBX prM0diAgmxbuv nT7xZ1XkPYDcfrxbPc36l V7gTyOvGeM4OOhgKct+Wk lNTUVSTUFOLCBJVlkgTDw vdGQ+PHRkIHN0 xVkdNKxuCCPiaC1bDFLrJ 6e5PsFgKoG1FJfvU7UoHA HfmzmiJz17wB5eUjJxDdI 6QCvfX0XqcgL2 UXOnxAMrXXdpHNN4F47tr 8K0HBQeZGUlVUH1qYL1yX 1hbGlnbjogbGVmdDsgdmV ydGljYWwtYWxp O536ZXVjlSsvPkD3WdRuU jMqYXK3F7EbLsy0ULHmcY zeVT9nqUPkSLmyZg8bjVp grMgjZZ5sCCMw ljukWIOsmW9cYTRokYOut CyrPD6wKFAtvoqxa641Pk GwAXI4VFFnoOLzP1BihB0 yOiAjMDAwMDAw H1HepOVgZDjsX948MNtjA bL8PLYpwkMzP4OhLFWbuP rhZyM2f4C0Mi2vNdNRTGY yczwvdGQ+PHRk UHP2lPmtZQleQDRicZ3mM GPdK5k8ZkHiAmE0LIbcD4 ZrAOGjhttzKj74fS8sTnE vDcW7OLonH8Vc jcR8XERnoECvBQrqMMW2V 47ol3J3QRZlJSAcWCM7iF L9vC8zoEdekmzkrGIdfJj gdmVydGljYWwt ZWhuG660CUJqeWicEiOkz WFsZTwvdGQ+OMMqOJG9bS ycLFahNGStrG1zPONyZ3p 6VpXiDyF8IPet C8DuLRYqfkffIo72gY1vB mTuFhA2ODneM3WxddN4BE DsqJKfCKiqWKD2S05jq3I 2DYWgVGErUML4 zKE1eP3gpYtdekywjGDtw DsgdmVydGljYWwtYWxpZ2 64VPZifSbgUkXjKMTxLU3 jeTwvdGQ+PC90 jr00H8XrPglcEdl5NWDcY GA2fAL0wS5aKZHwFJtyt7 D5yQC1B3HzemExll7xr0e iTHEbTYyrS67w tUScr7A9PCEbySU6VQCyc KadCiDzcG27Dal+PGNvbG kim1IrEaduh7zvs8tqyMv 9IjMwJSIgdmFs dUnjYYU3u5EuJx73Q95eO HdpZHRoPSIzMCUiIHZhbG gbvh5bxN2vVd8+PGNvbCB 8qKV9nV0eSiIw GkE6BNyvL853FvPezCUsF fhnc6zrl3cyxRc6UyZlIT VuxhYcmGwgUJF9j9FsVa1 8X7SkzBwjw4Ku Tub5ix74bMFzl3B6bWU0W 3BhZGRpbmctbGVmdDogMC 2iJYBewoueWTUrgD0jFUU wW2b0EeOvHlI2 RCbzL6XoceZ5DTHmsKPqT UUdhYDYwR3jhjxev0hgtu stDnNeMOAgUJc9QAc7VJJ saWduOiBsZWZ0 YkQ0DLQ2cTDdkN0qkHefk ikfzD9hWzo+KUk9a5mrlD EqZH6fuXA1KN99AB56cDA vu8P2jNT3K3Cs ZWPcoavqqdyawAD6QRRoT ORxbT99Os4sgSuiOc5mKZ PhGDF4YQQjiOEtG8LnsP9 yOiAjMDAwMDAw S1UmhLCjQLukO419EStyE wA3JFPiskGrH1QdTDIurQ nkPuO1w8O3Me6MYB52CZ0 8MT35lNHho0A2 gWF3Y9OeRUFbzamznqlsx YR1RVIiIUNqiR59At1dmA lqZl8gMWQgFKP5SAUsmFH mW4KqtF9wXuDu JSSpIEReD7TccLQqTLoiF 744SEstHkS1ELTabgNxM7 TsGCQsnIjaZoX0r4Z3Mp0 PRn78XW79JE07 zUKfl6D4hPO9Z8GbALOem vrskwpppTW4ZVRfZUJkcE 29Zy2yuSbxWs4pLKDgBWD 7KJUtnOIxT3Mn vI4vYzWkYOVuQIVbG4Iiz FNgXShkY300UFxmNhL6AN GepvJpS6RdLOFwmQqiKuI 8k0J1Jl8TWVcp ytl1R8CiPxqdkHH+PC90Y VFzAB01bHBpjJGit1zuhV g6GeOuDBXtNFD8aGdmZHj lx7YlOAVrN93i oWQvu6H5 (more content not included)... Normal [facility] C Urineon 12-09-2022 Bacteria identified [...] Locations R1: This test was performed at: [facility], [address] [place] [address], [address]- , , Normal [facility] Comment on above: Performed By: #### 2 [id number], [id number], [id number] ####[facility] [address] [place] [address] BMPon 12-08-2022 Creatinine [Mass/Vol] 0.7 mg/dL Normal 0.5-1.3 [facility] Comment on above: Performed By: #### 2 [id number], 3253687, 8943494, [id number], 1337776, 7854387 ####[facility] [address] [place] [address] Urea nitrogen [Mass/Vol] 12 mg/dL Normal 5-21 [facility] Comment on above: Performed By: #### 2 827714, 9070568, 5186589, 12282480, 4898810, 8566035 ####[facility] [address] [place] [address] Urea nitrogen/Creatinine [Mass ratio] 17 No Units Normal 10-20 [facility] Comment on above: Performed By: #### 2 731122, 1112139, 5263546, 25490132, 7595432, 3054210 ####[facility] [address] [place] [address] Anion gap [Moles/Vol] 9 mmol/L Normal 6-16 [facility] Comment on above: Performed By: #### 2 440234, 4122063, 1394986, 26965692, 3148193, 9491171 ####[facility] [address] [place] [address] Calcium [Mass/Vol] 8.9 mg/dL Normal 8.9-11.1 [facility] Comment on above: Performed By: #### 2 379660, 5948551, 8094614, 32465323, 2822717, 2500701 ####[facility] [address] [place] [address] Chloride [Moles/Vol] 104 mmol/L Normal 101-111 [facility] Comment on above: Performed By: #### 2 181377, 6623481, 1076741, 04079405, 8212318, 5028839 ####[facility] [address] [place] [address] CO2 [Moles/Vol] 26 mmol/L Normal 21-31 [facility] Comment on above: Performed By: #### 2 346348, 1758460, 6927060, 73981266, 7578805, 7507027 ####[facility] [address] [place] [address] Glucose [Mass/Vol] 103 mg/dL Normal 55-199 [facility] Comment on above: Result Comment: If t his glucose result represents a fasting glucose, interpretation should refer to the following reference range: 55-99 mg/dL Performed By: #### 2 563509, 5749671, 9600160, 65819693, 5053131, 6097450 ####[facility] [address] [place] [address] Potassium [Moles/Vol] 3.3 mmol/L Low 3.5-5.3 [facility] Comment on above: Performed By: #### 2 712004, 3289000, 1569851, 78735551, 4832419, 2360889 ####[facility] [address] [place] [address] Sodium [Moles/Vol] 136 mmol/L Normal 135-145 [facility] Comment on above: Performed By: #### 2 577881, 5852789, 1179927, 06386706, 1427491, 4755691 ####[facility] [address] [place] [address] Coding Summary.on 12-08-2022 Coding Summary. CD:[id number] W w+PGhlYWQ+MX9ADVCeE13 scYSqsN6tE1HKLIzGGirh KOEXHUgXKoTvkkJeBV6al XNjZXJu IC8+KI1xLXJvFbgctGWna 1M1dRH7T27bsg2hNKksnY K4EINfItFmablgu7srzRz 6IDcuNmluOyBt NBRdqN04UEY0iZ37Yp95w PYgxKYxw8jfgEc3PeOsCF EnKQN0ePwlTKjnh7AuUCA zI62xyXIfn8Z5 FZNfgEiztDLqNyPsjQU8u A7hMKikaqwde1etbvwgUa u9ms39aRGnq8P2gFJ4B3X hwvA3YWDzuAUz BheusMOIbT2rbirtj3ukw bduPaXhXSHtJYc6ITm5YF IetDqnSeQjZN13PCX3LWM sldBlQ7NuIDCv cUicYjF5f2Z0Sp8UF0HWC kivT6GVTWQPVJyolGY+PC 65jr90Y5IaKxmwEgw1QFD xLMK6zOL9aD4i RYBwKVppr3E7tPQ1Z3Rrq sWvuz1pe0tlFBPrTKcgR8 9rcQRgo1F9BNVxlDV5YTP wyYymDoOckA01 Oyc+RHDilBlqg8MqFxrzj 4ard4xsxIh7EvhdEQVxgy LbcCbpRTU9p6BlKl3uBKD jwVS8rJY2uW2z EqWcUoZ5PIfaY561QvUhj VHrBryzZ48dN3ZyeZI+PH QmWre2CVTtwVgaIM1xN2X hZGRpbmctbGVm aHaaIF0lUSGfomenWJUgt E2mHJZkY7y3TyYjLlL7EY wgI2EwAIZqixioSs76eJ4 zJiCsFnM5HDqe Z0VuobB0BJDycFNpJFjwR HW4M67en2S3RFQqZBXhAH U5oSM5rC6quUivszdhhUD mdDsgdmVydGlj YIjyHVxvM946NDVbeXskV kNvZGluZyBEYXRlOiAgMD QvMDcvMjAyMzwvdGQ+PHR gYRO4hWroWMOn dITbNSkrFq8iiMbzkEgdE H3xIKHxdjtbIEZvyX9tLT PicSSmuOrmXR8uAHEhrdi pb589RbJzIFN6 KIQfuGJeS9XllB8cBnWiM RZpBDQbJ7OzeSCaRXtwP2 26AUskInB9AYBxuaUxI4O sLWFsaWduOiB0 z8J6Hy8Fg5FydtctX0Dyp XQfJmKiDpyjNAb3D8SeBw wvdHI+MK55DOMlWE72YNg 4WQQ5dQgwFTiw UMVjK9XxbM3rIuIvPPYmS GRkOyc+PHRhYmxlIHdpZH RoPScxMDAlJyBzdHlsZT0 aCx2bIAHzLWIl kOmbzBZlObLrm8dsEJWhD QawTE8kvAjnB1NmkLB8XV Zdd7g6Pt95X82iF5SnfRJ +UOJqsPG2vUY4 xU3kVgUbGaJ6FUqdP911Z yZuzZFrUlagd5cpu7bdkS y3CzY5XJJqkqBmeNdlBSQ 6y5YoMu46F33j IHdpZHRoPSIxNSUiIHZhb Jsfub4qqY1wYc7+PGNvbC T8kIR9bW2jRdUgKqY7ATv fE158RxProQTm Qtlbx7mik0ynvPe7XhAkV JPstaIuzVatBGZ5d9EgWh 88I9LmuHbyw7WxTls9cn1 5sYQjg5I2bRY1 U3KyIVSnafnjnCPgdPbrW O0bCNIkjutlLWJgkR9tPC ChM2y1StCsJqE4FLgnQ0B kyrS8OOEfvBKf LHKucJTGpM0kvykiu4ecm oauOlYqORYwXHg5KAp0ZF SfrMtaYjFpLPP2OrT3WQP 3bXGlfX8fmSlv stbzvF7bYub+UMS4pSSbb EGBYQ9eIumgzIV+PHRkIH C7zDjqHLyoRJVjnU1kWFO lV9c0JsPaVbC8 AFeiD8JvpdA6WVQxrIWdE YJibEQIdI9qshhij1qpyn zcSyHiWUSvLIf4THv4YPH saWduOiBsZWZ0 SrI7ZQU0tHUdxU4ayShhp hmlcM3oJpw+QmlydGggRG E6YSj6D7UbGwc5NEJgwJz rOI4yuHBrINju Mv9hjBcltDqfTY6uJIDzg zemw028UjEkk9rtGEKirT YfEHxiJKL9J01hk1T7SZZ dBPTsFGA7jQW1 lC3yaYjhjtwqmHBztBuuw vBvxOwdMPgfKUgtW905VA TsbMvxMxGnKTz2U1RiTln 3YUTniHqzRD9z jGWiJKzcYb8bgTwbjBsqR G9kVPEycmlph416FlDak2 zrIBMciGArJYirIQU5S47 hs9J1DAMsPUWv UIO7uFI3sG5xyVgvvvdiy GVmdDsgdmVydGljYWwtYW rjN315UAZdfVjtJsKkhCl 5M4YkIec9LXTj bIetHA7liVNcPMvzHs8ez CeetHgaEJ0hBZNqmfpew7 95MhDka8irKYFmvPUvVHr uHRY1K18tk2S6 DWPxCJVfJSB2kHN8fV2pf GlnbjogbGVmdDsgdmVydG rjJDvdHFriO540ELGcwMw nPlBhdGllbnQg JKnzPUq9Y3FtAgcqfKZ+P Z62OJVtJG26zWSwiEXyn0 ylaCt6RbGoRCHyCPB5lVm oPAfas4KoTSWz L78laRMvc6U1MDTfgWzgm BMlIjJgkFQ5zL1mRApcjd uws8bsypkhIvrqr8jtbd4 7hZ35R36rSEoz ZHRoPSIzMCUiIHZhbGlnb i6pdR7iVm8+JVStsDO4aR X6mV9vWGNbIaF9WNmcV99 9InRvcCIvPjxj r5zjx8hviNp0FjS0RTEsx oIdkXquUJW7j1DzWl99P4 9sIHdpZHRoPSIyMCUiIHZ uwGfldg9xmZ7n Ii8+DMMlkGP0xPU6qE5yY xZoMpM4RQvxO125QlFfpX SyXykdE39aT7QosSK+PHR pOkw5GNXxrUdu JF3sbRYfNDvdYo4nBMB1H pMzZiEuSCakJ4OsXBIylb yrxnjvhKL2HUPhUGDxxE8 3Lm9czMedYRGr oCISuZ7nvjjsy1gtlthhF pIzSGXwPGt9YNk5CPZpiM rdWmPxXZX3QnB8OXJ6qED jrL3wsAggrjfr pN5dI4CrEAZyngxjTs68j Z7yWcZjVeN1GGhzRuh+Wk lNTUVSTUFOLCBJVlkgTDw vdGQ+PHRkIHN0 pEicFWgwJUQwlS6hJRCwA 7k6VuDpWcY4PMmoA8MaNZ BbnvavLf94gP1zFkSgAnR 0PKeoU2GjylM9 WGJotYInYRwdBKY2S21uw 6M3YPZjNYEpERC8kJA1mV 1hbGlnbjogbGVmdDsgdmV ydGljYWwtYWxp L547RLKqhZrfZxW8IzHlF vPvYJO8I3FnPbk9OYYvbL foTV1oyZUvBTrmBg3iaHu kwUvjFA4eSZEi yjkdESAuaW5pRIUcbOQck WooTP6yBOXktpvip469Ad SzEUR3ULGhsTHyW0TcvL9 yOiAjMDAwMDAw X6EknVCaUFkjX472HWujO lQ4ENNdnuMoY3OrACBzdV qvCuI0f0W2Zd2cTwGQWVQ yczwvdGQ+PHRk PED0gMxyFGgnAVUmqV8sI KIzS6k9ZqDmGlJ3TLhwG3 HzMHSopegeWu30bF0nZjY aZfI9ICcxB1Cr srM5ILRayHJfDLstDAC7E 42nj5N9ANIaIJLqXEY7aL M9lM6hzDglgsiqnOLqqXz gdmVydGljYWwt BUktN894HDHvlNhiGsUch WFsZTwvdGQ+LXIdCXE2iO bvVJnaUKMjbP3cRIWmQ2d 5UqBbGsI1YWru P0ZrUAZeaxmzPx91rG4hB kYgKkT6VPtbY4HomcD3VZ CknUScVJyrVYA5O62on4P 3OUPpMRIyDJO8 pMA6yV7vzPlqwojebZRkk DsgdmVydGljYWwtYWxpZ2 36YPOriPtvVb43tVJclLh fypQ2T1IiPylq dHI+GX80OGJdKA29pFSwp JNlf8aaeQk3EoAaMGMuVT X4uZssBXhry2GzYFGuU03 bfPQvu0W2GTCp cLinqFViHjOoeDL6jX5tN Adaggjhp5ddmahfHhoaj6 ppuu91lQ77H52rFMmhUJU oPSIzMCUiIHZh tLcbka9jgM4pEr6+PGNvb OL2uFE9uW0iJcRfLiT2FM pzB007LgRuhCSgMxccn3b uo5yklZt8SnMj HKFjdjLwiMaxSRH4q8EiX q32D81eUYlyMRCpKXZsJF FgTJPvxAxeou0xiR6aNh6 +KI8gi9odlk59 vZ23dMZ+HLJpFHE1rHewM RggTKZhrF1uBMysUuN2QE DhUtAkdD84wJDgXEvzHn5 nbPqpqEzaWJ9o QWAywzoto510WpYwz4eqF PKclODaORdzSJA7H01xm0 S1MBMlYEPqZHP4lDU7bJ9 hbGlnbjogbGVm dDsgdmVydGljYWwtYWxpZ 811QAQwfRisNhBbaOJrE2 hdcqRUVR9dArcwcRB+PHR aIRV1lChwGKgr RRSinJ1gGLYpT1w1PlSmO uP6JShyN5VrdpG0WJRqeD BwRMTgdEPHpL6bgqopu0s vcjogIzAwMDAw SHc1RGj9JZFwkDckOkGnT SQ0NyY8LZS9kRYuyR4bqJ bjffwjeV1cJod+RklOOjw vdGQ+PHRkIHN0 uIitMFcuSQTcxJ8xHAElK 6q7JrWrYdQ2IQbpT8Iwap T3DUXagYCvLOUubORWhJ0 xfuouf2mgfani HjXaWGHfYYz4ZWp7PNFkl EepDiOaKNW7OcM7KRG5pG MlfE2iiNvcdkpfgA9nMlr +TVJOOjwvdGQ+ TFWhWSD1pPwfQUudPEPfa Y2bSTXeL2f3FsPzLoZ5ZJ ajC9GamiL3OYQewJQqGAV kdUVPnD5aacul e2vrpmgpSoWpPBHdTJd9J Ut0MGKqaKdvMpJdHZO4Cq W3ODM1rSTgjL8kyDyuyly mcQ8mYfc+UGF5 QAH6SE56FZ35M0VwFrldh GFibGU+PHRhYmxlIHdpZH RoPScxMDAlJyBzdHlsZT0 kHd1dGQUmOLRh bGxhcHNl (more content not included)... Normal [facility] Discharge Instructionson Discharge Instructions [id number]. [id number]:[address] [facility] ED Clinical Summaryon 2022 ED Clinical Summary [place] [id number] ED Clinical Summary Person Information Name: DARLINE FALCON [facility] Age: 22 Years : 2000 Sex: Female Language: Nigerian PCP: Madhavi Bustamante MD Marital Status: Single Phone: [phone] Visit Id: Visit Reason: Nausea; Abdominal pain; [...] 12/07/2022 23:48:57 12/07/2022 23:48:57 12/07/2022 23:48:57 ADDRESS: [facility] [id number] [facility] DOC NOTES: MEDICAL INFORMATION: Prescriptions Given: New Medications [facility]/pharmacy #[id number], [address], [place] [id number], [phone] dicyclomine (Bentyl 10 mg Cap) 1 Capsules By Mouth 4 times a day as needed Pain for 7 Days. Refills: 0. Medications to Continue Taking That Have Changed [facility]/pharmacy #[id number], [address], [place] [id number], [phone] START: ondansetron (Zofran 4 mg Tab) 1 [...] up: With: Address: When: Fernando Clark [address], [address] [place], [place] [phone] Business (1) In 3 days 12/10/2022 Comments: General surgeon in [place] With: Address: When: Willie MALLORYMatthew [address], [address], [facility] [address] [place] [address] Business (1) In 3 days 12/10/2022 Comments: General surgeon at [place] With: Address: When: Please return to the ED with any new or worsening symptoms including worsening pain, fevers and chills, worsening nausea and inability to tolerate a liquid diet. With: Address: When: You may follow with the general surgeon recommended to by your primary care provider. You have also been provided with the information for the local [facility] general surgeons. DIAGNOSIS: Cholelithiases; Nausea Normal [facility] ED Note-Physicianon 12-09-19 23 ED [...] day(s), # 28 cap(s), Refills(s) 0, Pharmacy: [facility]/pharmacy #[id number], 167.6, cm, 12/07/22 21:32:00 [...] day(s), # 12 tab(s), Refills(s) 0, Pharmacy: [facility]/pharmacy #[id number], 167.6, cm, 12/07/22 21:32:00 [...] 12/10/2022 EDT [address], [address] [place] [phone] Business (1) Additional Instructions: General surgeon in [place] Willie LOZADA In 3 days 12/10/2022 EDT [address] (more content not included)... Normal [facility] Comment on above: [...] added (diluted fruit juice). ? Eat bland, xdoc-uk-tvnvxk foods in small amounts as you are able. These foods include bananas, applesauce, rice, lean meats, toast, and crackers. ? Avoid fluids that contain a lot of sugar or caffeine, such as energy drinks, sports drinks, and soda. ? Avoid alcohol. ? Avoid spicy or fatty foods. General instructions ? Take ocvm-kta-stkxynp and prescription medicines only as told by your health care provider. ? Drink enough fluid to keep your urine pale yellow. ? Wash your hands often using soap and water. If soap and water are not available, use hand hopper operator. ? Make sure that all people in [...] and drinking to prevent dehydration. ? Take xpos-zmp-uwhsxjd and prescription medicines only as told by [...] 08/20/2006 Document Revised: 12/12/2019 Document Reviewed: 01/28/2019 [employer] Patient Education ? 2019 [employer] Cholelithiasis Cholelithiasis is a form of [...] yellow-green in (more content not included)... Normal [facility] ED Patient Summaryon 023 ED Patient Summary [place] [id number] Patient Discharge Instructions Person Information Name: DARLINE FALCON Age: 22 Years Arrival Date: 12/07/2022 21:25:41 Discharge Diagnosis: Cholelithiases; Nausea Primary Care Physician: Madhavi Bustamante MD Provider Information Primary Provider: Yash Medina DO Advanced Labeling Machine Operator:Lupis Miller PA-C The exam and treatment you received in the Emergency Department were for an urgent problem and are not intended as complete care. It is important that you follow up with a doctor, nurse practitioner, or physician?s office assistant for ongoing care. If your symptoms [...] Instructions: With: Address: When: Fernando Clark [address], [address] [place], [place] [phone] Business (1) In 3 days 12/10/2022 Comments: General surgeon in [place] With: Address: When: Willie LOZADA [address], [address], [facility] [address] [place] [address] Business (1) In 3 days 12/10/2022 Comments: General surgeon at [place] With: Address: When: Please return to the ED with any new or worsening symptoms including worsening pain, fevers and chills, worsening nausea and inability to tolerate a liquid diet. With: Address: When: You may follow with the general surgeon recommended to by your primary care provider. You have also been provided with the information for the local [facility] general surgeons. In the event that this physician does not participate in your insurance network, please consult with your insurance company to find a nearby participating provider. Patient Education Materials: Nausea and Vomiting, Adult; Cholelithiasis A MESSAGE TO ALL PATIENTS REGARDING OPIOIDS PRESCRIPTION OPIOIDS: WHAT YOU NEED TO KNOW Prescription opioids can be used to help relieve cbuxlyxy-et-avprnt pain and are often prescribed following a [...] Store prescription (more content not included)... Normal [facility] Hep Func Panelon 12-08-2022 Albumin [Mass/Vol] 4.4 g/dL Normal 3.3-5.0 [facility] Comment on above: Performed By: #### 2 474083, 5963584, 9330306, 66902313, 9947799, 1400174 ####[facility] [address] [place] [address] Albumin/Globulin (S) [Mass conc ratio] 1.3 Normal 1.1-2.2 [facility] Comment on above: Performed By: #### 2 998468, 2991202, 6550385, 53402767, 2260483, 7266387 ####[facility] [address] [place] [address] ALP [Catalytic activity/Vol] 65 Int._Unit/L Normal 21-98 [facility] Comment on above: Performed By: #### 2 208207, 1279113, 1716872, 88065808, 2702193, 1417717 ####[facility] [address] [place] [address] ALT No additional P-5'-P [Catalytic activity/Vol] 20 Int._Unit/L Normal 6-46 [facility] Comment on above: Performed By: #### 2 652734, 6497756, 3860061, 16024430, 2346530, 2933748 ####[facility] [address] [place] [address] AST [Catalytic activity/Vol] 19 Int._Unit/L Normal 5-43 [facility] Comment on above: Performed By: #### 2 706477, 0174913, 3389369, 58184906, 2226474, 0181744 ####[address] [address] Bilirubin [Mass/Vol] 1.7 mg/dL High 0.0-1.1 [facility] Comment on above: Performed By: #### 2 683634, 3926867, 1126375, 60107161, 2395265, 8956541 ####[facility] [address] [place] [address] Bilirubin.direct [Mass/Vol] 0.2 mg/dL Normal 0.1-0.4 [facility] Comment on above: Performed By: #### 2 024074, 8241915, 2483095, 87028697, 7057571, 4374078 ####[facility] [address] [place] [address] Bilirubin.indirect [Mass or moles/Vol] 1.5 mg/dL High 0.1-0.9 [facility] Comment on above: Performed By: #### 2 611763, 2756438, 7231807, 90139435, 2787331, 7698891 ####[facility] [address] [place] [address] Globulin (S) [Mass/Vol] 3.3 g/dL Normal 1.4-4.0 [facility] Comment on above: Performed By: #### 2 325559, 1057338, 3414505, 86131938, 2681900, 4496685 ####[facility] [address] [place] [address] Protein [Mass/Vol] 7.7 g/dL Normal 6.0-7.8 [facility] Comment on above: Performed By: #### 2 460869, 3520973, 1806888, 54307002, 9236475, 4764428 ####[place] [address] [place] [address] Lipase Levelon 12-08-2022 Lipase [Catalytic activity/Vol] 39 U/L Normal 13-58 [facility] Comment on above: Performed By: #### 2 205155, 3013364, 2221594, 66565873, 9548346, 9832966 ####[facility] [address] [place] [address] U BetaHcg Qualon 12-08-2022 HCG.beta subunit (U) [Moles/Vol] Negative Normal [facility] Comment on above: Performed By: #### 2 7587593, 71715053, 0861741 ####[address] [address] UA With Cult Reflexon 2022 Bacteria LM Ql (Urine sed) 1+ /HPF Abnormal Trace [facility] Comment on above: Performed By: #### 2 1425916, 26206584, 8851582 ####[facility] [address] [place] [address] Bilirubin Ql (U) Negative Normal Negative [facility] Comment on above: Performed By: #### 2 3890868, 44184372, 7146063 ####[facility] [address] [place] [address] Clarity (U) CLEAR Normal Clear [facility] Comment on above: Performed By: #### 2 9348381, 67162162, 2913949 ####[facility] [address] [place] [address] Color (U) YELLOW Normal Yellow [facility] Comment on above: Performed By: #### 2 2698108, 45359339, 7894344 ####[facility] [address] [place] [address] Epithelial cells.squamous LM.HPF (Urine sed) [#/Area] 3-4 Normal 0-2 [facility] Comment on above: Performed By: #### 2 2972292, 83730486, 4284367 ####[address] [address] Glucose Test strip (U) [Mass/Vol] Negative Normal Negative [facility] Comment on above: Performed By: #### 2 9531336, 10068966, 0223101 ####[place] [address] Hemoglobin Ql (U) TRACE Abnormal Negative [facility] Comment on above: Performed By: #### 2 8690481, 43059885, 2556919 ####[facility] [address] [place], [place] [address] Ketones (U) [Mass/Vol] Negative Normal Negative [facility] Comment on above: Performed By: #### 2 8899795, 49624172, 3928426 ####[address] [address] [place].plasma/Lithiu m.RBC (Bld) [Mass ratio] 0-3 Normal 0-3 [facility] Comment on above: Performed By: #### 2 4053811, 41000032, 3868335 ####[address] [address] Nitrite Ql (U) Negative Normal Negative [facility] Comment on above: Performed By: #### 2 7395020, 26288147, 5087085 ####[address] [address] pH (U) 6.0 [pH] Invalid Interpretation Code 5.0-9.0 [facility] Comment on above: Performed By: #### 2 3262327, 18557130, 2562147 ####[address] [address] Protein (U) [Mass/Vol] Negative Normal Negative [facility] Comment on above: Performed By: #### 2 2601042, 20725954, 6021342 ####[address] [address] Specific gravity (U) [Rel density] 1.020 Invalid Interpretation Code 1.005-1.030 [facility] Comment on above: Performed By: #### 2 1686638, 51321832, 4893347 ####[address] [address] Type of Urine collection method Clean Catch Normal [facility] Comment on above: Performed By: #### 2 7443423, 80151158, 6945341 ####[address] [address] Urobilinogen Qn (U) 0.2 {Tuan'U}/dL Normal 0.0-1.0 [facility] Comment on above: Performed By: #### 2 0336700, 16783977, 2213086 ####[address] [address] WBC Auto Ql (U) 2+ Abnormal Negative [facility] Comment on above: Performed By: #### 2 0509784, 25459999, 3469071 ####[facility] [address] [place] [address] WBC LM.HPF (Urine sed) [#/Area] 6-15 Abnormal 0-5 [facility] Comment on above: Performed By: #### 2 4493194, 55639766, 6179615 ####[address] [address] eGFRon 12-08-2022 GFR/1.73 sq M.predicted among blacks MDRD (S/P/Bld) [Vol rate/Area] mL/min/{1.73_m2} Normal >=59 [facility] Comment on above: Order Comment: Order added by Discern Expert. Result Comment: eGFR is race adjusted. AA=. Performed By: #### 2 692121, 8641962, 2956272, 67220758, 9104944, 6793092 ####[facility] [address] [place] [address] GFR/1.73 sq M.predicted among non-blacks MDRD (S/P/Bld) [Vol rate/Area] mL/min/{1.73_m2} Normal >=59 [facility] Comment on above: Order Comment: Order added by Discern Expert. Result Comment: Principal Java Developer asaf kidney disease could be indicated at eGFR's of less than 60 mL/min/1.73m2. Kidney failure is indicated at less than 15 mL/min/1.73m2. Performed By: #### 2 500010, 2210638, 0639076, 47187111, 5097858, 5786716 ####[facility] [address] [place] [address] Auto Diffon 12-07-2022 Basophils/100 WBC (Bld) 0.4 % Normal 0.0-2.0 [facility] Comment on above: Order Comment: Order Added by Discern Expert. Performed By: #### 2 889456, 2466614, 2894588, 21524630, 7490476, 7054037 ####[facility] [address] [place] [address] Basophils/Leukocytes Auto (Bld) [Pure # fraction] 0.0 E9/L Normal 0.0-0.2 [facility] Comment on above: Order Comment: Order Added by Discern Expert. Performed By: #### 2 722529, 5045770, 0067191, 98369066, 2653888, 3187233 ####[facility] [address] [place] [address] Eosinophils/100 WBC (Bld) 3.1 % Normal 0.0-8.0 [facility] Comment on above: Order Comment: Order Added by Discern Expert. Performed By: #### 2 197759, 8729123, 8105579, 49860576, 9495704, 0775414 ####[facility] [address] [place] [address] Eosinophils/Leukocyte s Auto (Bld) [Pure # fraction] 0.3 E9/L Normal 0.0-0.5 [facility] Comment on above: Order Comment: Order Added by Discern Expert. Performed By: #### 2 769166, 6412281, 4566029, 14613271, 4852600, 6772173 ####[place] [address] [place] [address] Lymphocytes/100 WBC (Bld) 17.3 % Normal 14.0-50.0 [facility] Comment on above: Order Comment: Order Added by Discern Expert. Performed By: #### 2 008414, 5735333, 0793173, 53518090, 7205971, 6391179 ####[facility] [address] [place] [address] Lymphocytes/Leukocyte s Auto (Bld) [Pure # fraction] 1.8 E9/L Normal 1.0-4.0 [facility] Comment on above: Order Comment: Order Added by Discern Expert. Performed By: #### 2 790370, 7706265, 6820096, 35898655, 2022069, 9225053 ####[place] [address] [place] [address] Monocytes/100 WBC (Bld) 5.8 % Normal 4.0-14.0 [facility] Comment on above: Order Comment: Order Added by Discern Expert. Performed By: #### 2 536536, 1918413, 2746932, 46566470, 3844530, 1198071 ####[facility] [address] [place] [address] Monocytes/Leukocytes Auto (Bld) [Pure # fraction] 0.6 E9/L Normal 0.2-1.0 [facility] Comment on above: Order Comment: Order Added by Discern Expert. Performed By: #### 2 717621, 9237279, 0951069, 21347595, 9425610, 1390380 ####[place] [address] [place] [address] Neutrophils/100 WBC (Bld) 73.4 % Normal 36.0-75.0 [facility] Comment on above: Order Comment: Order Added by Discern Expert. Performed By: #### 2 464680, 5521264, 9795597, 04945363, 3106326, 5207242 ####[address] [address] Neutrophils/Leukocyte s Auto (Bld) [Pure # fraction] 7.9 E9/L High 2.0-7.5 [facility] Comment on above: Order Comment: Order Added by Discern Expert. Performed By: #### 2 458451, 7555725, 1486781, 97502539, 0443711, 3121360 ####[address] [address] CBC w/ Auto Diffon 3 Erythrocyte distribution width (RBC) [Ratio] 13.9 % Normal 10.9-14.2 [facility] Comment on above: Performed By: #### 2 654991, 8317085, 8139906, 54445497, 5260438, 7594784 ####[address] [address] Hematocrit (Bld) [Volume fraction] 44.1 % Normal 34.0-46.0 [facility] Comment on above: Performed By: #### 2 207970, 9280272, 6426593, 14450317, 6864197, 5884116 ####[place] [address] [place] [address] Hemoglobin (Bld) [Mass/Vol] 15.3 g/dL Normal 12.0-16.0 [facility] Comment on above: Performed By: #### 2 202117, 1899708, 8602799, 10860561, 1429916, 8845601 ####[facility] [address] [place] [address] MCH (RBC) [Entitic mass] 30.0 pg Normal 27.0-34.0 [facility] Comment on above: Performed By: #### 2 234104, 0223864, 1214006, 81397848, 4154406, 1729564 ####[place] [address] MCHC (RBC) [Mass/Vol] 34.8 g/dL Normal 31.4-36.0 [facility] Comment on above: Performed By: #### 2 073474, 4489088, 6801889, 74256432, 3925784, 9468478 ####[place] [address] MCV (RBC) [Entitic vol] 86.4 fL Normal 80.0-100.0 [facility] Comment on above: Performed By: #### 2 130421, 5798018, 2184146, 87221579, 7516159, 9740462 ####[place] [address] Platelet mean volume (Bld) [Entitic vol] 8.7 fL Normal 6.4-10.8 [facility] Comment on above: Performed By: #### 2 159577, 9034594, 5397224, 34036792, 9914634, 0775912 ####[place] [address] Platelets (Bld) [#/Vol] 221.0 E9/L Normal 150.0-500.0 [facility] Comment on above: Performed By: #### 2 892933, 7255960, 8999228, 26987117, 1157183, 1994283 ####[address] [address] RBC (Bld) [#/Vol] 5.1 E12/L Normal 4.3-5.9 [facility] Comment on above: Performed By: #### 2 829493, 2301498, 8161452, 91083175, 6505574, 7521956 ####[facility] [address] [place] [address] WBC corrected for nucl RBC Auto (Bld) [#/Vol] 10.7 E9/L Normal 4.0-11.0 [facility] Comment on above: Performed By: #### 2 786281, 1782002, 0078102, 66126278, 6999303, 3296129 ####[facility] [address] [place] [address] CHEMISTRYOrdered By: SYSTEM SYSTEM on 12-07-2022 Albumin [...] rate/Area] mL/min/1.73 m2 Normal >=59mL/min/1 .73 m2 [facility] Chem S Globulin (S) [Mass/Vol] 3.3 g/dL [...] Consent for Treatmenton Consent for Treatment [id number] [facility] [id number] .[id number]:[address] [facility] HEMATOLOGYOrdered By: SYSTEM SYSTEM on 12-07-2022 Basophils/100 WBC (Bld) 0.4 % Normal 0.0 - 2.0 % [facility] HemeAutoSS Basophils/Leukocytes Auto (Bld) [Pure # fraction] 0.0 E9/L Normal 0.0 - 0.2 E9/L [facility] HemeAutoSS Eosinophils/100 WBC (Bld) 3.1 % Normal 0.0 - 8.0 % [facility] HemeAutoSS Eosinophils/Leukocyte s Auto (Bld) [Pure # [...] 10.7 E9/L Normal 4.0 - 11.0 E9/L [facility] HemeAutoSS SEROLOGYOrdered By: Kishan warner on 12-07-2022 HCG.beta subunit (U) [Moles/Vol] Negative Normal [facility] Man Sero URINALYSISOrdered By: Kishan cisneros on [...] PM) Normal Negative [facility] UA Auto SS [place]ee[place].plasma/Lithiu m.RBC (Bld) [Mass ratio] 0-3 /HPF Normal [...] [facility] UA Auto SS Urobilinogen Qn (U) 0.4573846 {Tuan'U}/dL Normal 0.0 - 1.0 EU/dL [facility] UA Auto SS WBC Auto Ql (U) 2+ *ABN* (12/07/22 9:55 PM) Invalid Interpretation Code Negative [facility] UA Auto SS WBC LM.HPF (Urine sed) [#/Area] 6-15 /HPF Invalid Interpretation Code 0-5/HPF [facility] UA Auto SS ANGEL w/Reflex if POSon 2022 Nuclear Ab Ql (S) Negative Invalid Interpretation Code Negative [facility] Comment on above: Result Comment: Perf ormed at: [facility] [place] [id number] [place], [place] [id number] PhD Octaviano Chen Performed By: #### 1 [id number], [id number], [id number], [id number], 83493088, 7240126, 3599692, 9590175 ####[facility] [id number] [place] [address] Auto Diffon 12-04-2022 Basophils/100 WBC (Bld) 0.6 % Normal 0.0-2.0 [facility] Comment on above: Order Comment: Order Added by Discern Expert. Performed By: #### 1 [id number], [id number], 05805140, [id number], 07228315, 7991458, 1152106, 8426381 ####[facility] [id number] [place] [address] Basophils/Leukocytes Auto (Bld) [Pure # fraction] 0.0 E9/L Normal 0.0-0.2 [facility] Comment on above: Order Comment: Order Added by Discern Expert. Performed By: #### 1 [id number], 9424524, 82139916, 92241660, 94092030, 8033689, 4181667, 0379772 ####[facility] [id number] [place] [address] Eosinophils/100 WBC (Bld) 5.5 % Normal 0.0-8.0 [facility] Comment on above: Order Comment: Order Added by Discern Expert. Performed By: #### 1 [id number], 2571041, 87829432, 06602216, 51547739, 3199098, 1366632, 2711499 ####[facility] [id number] [place] [address] Eosinophils/Leukocyte s Auto (Bld) [Pure # fraction] 0.4 E9/L Normal 0.0-0.5 [facility] Comment on above: Order Comment: Order Added by Discern Expert. Performed By: #### 1 [id number], 5932644, 92124086, 28463028, 07995637, 6130546, 0976865, 9848104 ####[id number] [place] [address] Lymphocytes/100 WBC (Bld) 32.2 % Normal 14.0-50.0 [facility] Comment on above: Order Comment: Order Added by Discern Expert. Performed By: #### 1 [id number], 3689269, 15870017, 94935440, 23268284, 5501754, 2014011, 9467898 ####[address] [address] Lymphocytes/Leukocyte s Auto (Bld) [Pure # fraction] 2.5 E9/L Normal 1.0-4.0 [facility] Comment on above: Order Comment: Order Added by Discern Expert. Performed By: #### 1 [id number], 9270597, 03034081, 17252555, 60354701, 5177674, 8688675, 3286553 ####[address] [place] [address] Monocytes/100 WBC (Bld) 6.7 % Normal 4.0-14.0 [facility] Comment on above: Order Comment: Order Added by Discern Expert. Performed By: #### 1 [id number], 4083751, 17981216, 65395648, 09077070, 0913388, 3221681, 8936443 ####[address] [place] [address] Monocytes/Leukocytes Auto (Bld) [Pure # fraction] 0.5 E9/L Normal 0.2-1.0 [facility] Comment on above: Order Comment: Order Added by Discern Expert. Performed By: #### 1 5679474, 5215057, 90282695, 30436006, 89824142, 4878321, 1961500, 6417121 ####[address] [place] [address] Neutrophils/100 WBC (Bld) 55.0 % Normal 36.0-75.0 [facility] Comment on above: Order Comment: Order Added by Discern Expert. Performed By: #### 1 2001085, 2633026, 39932362, 74258593, 81955652, 3048560, 3484211, 6216993 ####[address] [place] [address] Neutrophils/Leukocyte s Auto (Bld) [Pure # fraction] 4.2 E9/L Normal 2.0-7.5 [facility] Comment on above: Order Comment: Order Added by Discern Expert. Performed By: #### 1 7371242, 5388987, 83698968, 19011453, 28125627, 3979242, 8297931, 4828879 ####[address] [address] CBC w/ Auto Diffon 3 Erythrocyte distribution width (RBC) [Ratio] 13.9 % Normal 10.9-14.2 [facility] Comment on above: Performed By: #### 1 7926421, 2137923, 04591462, 18275418, 78907943, 8578837, 6296045, 9550597 ####[address] [place] [address] Hematocrit (Bld) [Volume fraction] 41.1 % Normal 34.0-46.0 [facility] Comment on above: Performed By: #### 1 8935810, 8047132, 06675286, 72626167, 81204907, 7857297, 1458933, 2762307 ####[address] [place] [address] Hemoglobin (Bld) [Mass/Vol] 14.2 g/dL Normal 12.0-16.0 [facility] Comment on above: Performed By: #### 1 1616829, 8877653, 58001931, 89932038, 84310489, 2176481, 4665610, 7272014 ####[facility] [address] [place] [address] MCH (RBC) [Entitic mass] 30.1 pg Normal 27.0-34.0 [facility] Comment on above: Performed By: #### 1 6793201, 3872703, 24629079, 41539942, 91264519, 2071455, 7750406, 5812916 ####[address] [place] [address] MCHC (RBC) [Mass/Vol] 34.6 g/dL Normal 31.4-36.0 [facility] Comment on above: Performed By: #### 1 8779376, 2150031, 36337478, 82141011, 53863994, 0862580, 7331924, 8411923 ####[address] [address] MCV (RBC) [Entitic vol] 87.1 fL Normal 80.0-100.0 [facility] Comment on above: Performed By: #### 1 9783225, 4994339, 57513345, 05235400, 97132428, 0766225, 3495342, 4742853 ####[address] [place] [address] Platelet mean volume (Bld) [Entitic vol] 8.4 fL Normal 6.4-10.8 [facility] Comment on above: Performed By: #### 1 7390370, 2199567, 00886458, 61111328, 88159857, 5433811, 8012250, 9223236 ####[address] [place] [address] Platelets (Bld) [#/Vol] 220.0 E9/L Normal 150.0-500.0 [facility] Comment on above: Performed By: #### 1 4592412, 8606799, 30714762, 63349418, 13443817, 4594615, 3825718, 8008068 ####[facility] [address] [place] [address] RBC (Bld) [#/Vol] 4.7 E12/L Normal 4.3-5.9 [facility] Comment on above: Performed By: #### 1 1436144, 5813737, 16220078, 27580216, 47203834, 7714140, 1535920, 2491620 ####[facility] [address] [place] [address] WBC corrected for nucl RBC Auto (Bld) [#/Vol] 7.7 E9/L Normal 4.0-11.0 [facility] Comment on above: Performed By: #### 1 7426152, 4124475, 67774717, 06865167, 62809338, 1804893, 5297414, 6530768 ####[facility] [address] [place] [address] CHEMISTRYOrdered By: SYSTEM SYSTEM on 12-04-2022 Albumin [...] mmol/L Normal 6 - 16 mEq/L F C Remisol AST [Catalytic activity/Vol] 17 [iU]/d Normal [...] rate/Area] mL/min/1.73 m2 Normal >=59mL/min/1 .73 m2 [facility] Chem S Globulin (S) [Mass/Vol] 3.0 g/dL Normal 1.4 - 4.0 gm/dL FT Remisol Glucose [Mass/Vol] 86 mg/dL Normal 55 - 199 mg/dL FT Remisol Potassium [Moles/Vol] 3.7 mmol/L Normal 3.5 [...] 12-04-2022 Albumin [Mass/Vol] 4.1 g/dL Normal 3.3-5.0 [facility] Comment on above: Performed By: #### 1 0061961, 3011901, 42497755, 69701752, 53512218, 7824057, 2709252, 8427664 ####[facility] [place] [address] Albumin/Globulin (S) [Mass conc ratio] 1.4 Normal 1.1-2.2 [facility] Comment on above: Performed By: #### 1 1842070, 6534725, 64836706, 92177657, 70200532, 0176729, 8497912, 8428001 ####[facility] [address] [place] [address] ALP [Catalytic activity/Vol] 60 Int._Unit/L Normal 21-98 [facility] Comment on above: Performed By: #### 1 7386630, 9700848, 37159982, 87791749, 12001136, 8359142, 9593775, 9262170 ####[facility] [address] [place] [address] ALT No additional P-5'-P [Catalytic activity/Vol] 21 Int._Unit/L Normal 6-46 [facility] Comment on above: Performed By: #### 1 0754344, 4691732, 35531626, 97793496, 44671907, 1773578, 1905537, 3461555 ####[facility] [address] [place] [address] Anion gap [Moles/Vol] 7 mmol/L Normal 6-16 [facility] Comment on above: Performed By: #### 1 9559320, 3152189, 99664741, 25825878, 84360600, 6527568, 9419521, 9450550 ####[facility] [address] [place] [address] AST [Catalytic activity/Vol] 17 Int._Unit/L Normal 5-43 [facility] Comment on above: Performed By: #### 1 7498959, 6744034, 81329099, 58923514, 95823806, 4945691, 2797326, 4497186 ####[facility] [address] [place] [address] Bilirubin [Mass/Vol] 1.3 mg/dL High 0.0-1.1 [facility] Comment on above: Performed By: #### 1 2088135, 7023765, 84975699, 67633523, 37760398, 7371690, 5275314, 7132592 ####[facility] [address] [place] [address] Calcium [Mass/Vol] 8.8 mg/dL Low 8.9-11.1 [facility] Comment on above: Performed By: #### 1 0287766, 0329229, 15241488, 47963540, 75643862, 2233047, 3656934, 8778965 ####[facility] [address] [place] [address] Chloride [Moles/Vol] 107 mmol/L Normal 101-111 [facility] Comment on above: Performed By: #### 1 8966242, 3520312, 56404366, 54677950, 66868128, 3673062, 5019904, 2473029 ####[facility] [address] [place] [address] CO2 [Moles/Vol] 27 mmol/L Normal 21-31 [facility] Comment on above: Performed By: #### 1 4092575, 0360060, 13171298, 27140093, 17505607, 0644078, 7742434, 2786285 ####[facility] [address] [place] [address] Creatinine [Mass/Vol] 0.7 mg/dL Normal 0.5-1.3 [facility] Comment on above: Performed By: #### 1 5020662, 2106554, 25108879, 12105977, 07977666, 6382478, 5158679, 2274758 ####[facility] [address] [place] [address] Globulin (S) [Mass/Vol] 3.0 g/dL Normal 1.4-4.0 [facility] Comment on above: Performed By: #### 1 6841784, 4435510, 88377073, 75878049, 52743517, 0055479, 6419786, 1160154 ####[facility] [address] [place] [address] Glucose [Mass/Vol] 86 mg/dL Normal 55-199 [facility] Comment on above: Result Comment: If t his glucose result represents a fasting glucose, interpretation should refer to the following reference range: 55-99 mg/dL Performed By: #### 1 1470535, 0398724, 48397317, 55201594, 73292863, 4338149, 5548144, 8889272 ####[facility] [address] [place] [address] Potassium [Moles/Vol] 3.7 mmol/L Normal 3.5-5.3 [facility] Comment on above: Performed By: #### 1 9469078, 6130923, 85963481, 51179332, 09400061, 5890893, 3820642, 4004462 ####[facility] [address] [place] [address] Protein [Mass/Vol] 7.1 g/dL Normal 6.0-7.8 [facility] Comment on above: Performed By: #### 1 1551504, 2368327, 02931343, 29409974, 05044087, 9890443, 8219952, 6988167 ####[facility] [address] [place] [address] Sodium [Moles/Vol] 137 mmol/L Normal 135-145 [facility] Comment on above: Performed By: #### 1 7105526, 7052986, 70320466, 10031797, 49224086, 4379703, 9570209, 1685797 ####[facility] [address] [place] [address] Urea nitrogen [Mass/Vol] 10 mg/dL Normal 5-21 [facility] Comment on above: Performed By: #### 1 6816653, 3722851, 87308978, 58314381, 14442292, 7702355, 6296130, 6178534 ####[facility] [address] [place] [address] Urea nitrogen/Creatinine [Mass ratio] 14 No Units Normal 10-20 [facility] Comment on above: Performed By: #### 1 4730420, 0827232, 20250214, 29739167, 50774977, 2549623, 2907762, 3222331 ####[facility] [address] [place] [address] CRPon 12-04-2022 CRP [Mass/Vol] 0.6 mg/dL Normal <=1.9 [facility] Comment on above: Performed By: #### 1 4103054, 8387255, 64116824, 01486389, 52070815, 1296272, 3852762, 6317902 ####[facility] [address] [place] [address] Consent for Treatmenton Consent for Treatment [id number]#1 .00CD:[address] [facility] HEMATOLOGYOrdered By: SYSTEM SYSTEM on [...] 55.0 % Normal 36.0 - 75.0 % [facility] HemeAutoSS Neutrophils/Leukocyte s Auto (Bld) [Pure # fraction] 4.2 E9/L Normal 2.0 - 7.5 E9/L [facility] HemeAutoSS HEMATOLOGYOrdered By: Magdalena Dai on 12-04-2022 Erythrocyte distribution width (RBC) [Ratio] 13.9 % Normal 10.9 - 14.2 % [facility] HemeAutoSS Hematocrit (Bld) [Volume fraction] 41.1 % Normal 34.0 - 46.0 % [facility]e[employer] Hemoglobin (Bld) [Mass/Vol] 14.2 g/dL Normal 12.0 - 16.0 gm/dL [facility]e[employer] MCH (RBC) [Entitic mass] 30.1 pg Normal 27.0 - 34.0 pg [facility] MCHC (RBC) [Mass/Vol] 34.6 g/dL Normal 31.4 - 36.0 gm/dL [facility]e[employer] MCV (RBC) [Entitic vol] 87.1 fL Normal 80.0 - 100.0 fL [facility] Platelet mean volume (Bld) [Entitic vol] 8.4 fL Normal 6.4 - 10.8 fL [facility] Platelets (Bld) [#/Vol] 220.0 E9/L Normal 150.0 - 500.0 E9/L [facility] RBC (Bld) [#/Vol] 4.7 E12/L Normal 4.3 - 5.9 E12/L [facility] Sed Rate Automated 10 mm/h Normal 0 - 34 mm/hr [facility] WBC corrected for nucl RBC Auto (Bld) [#/Vol] 7.7 E9/L Normal 4.0 - 11.0 E9/L [facility] Physician Orderon 12-04-2022 Physician Order [id number]#1. 00CD:[address] [facility] Physician Order [id number]# 1.00CD:[address] [facility] Sed Rate Automatedon 023 Sed Rate Automated 10 mm/hr Normal 0-34 [facility] Comment on above: Performed By: #### 1 3294737, 0645479, 05983908, 62583643, 98798932, 9542474, 8384662, 8766611 ####[facility] [address] [place] [address] TSH With T4fr Reflexon 12-04 TSH Qn 1.11 m[IU]/L Normal 0.34-5.60 [facility] Comment on above: Performed By: #### 1 4907040, 7605306, 59497430, 77764047, 51186508, 3976819, 7391767, 3572667 ####[facility] [address] [place] [address] US Abdomen, Limitedon 2022 US Abdomen, Limited [...] MD Transcribed by: LITA Technologist: BREONNA Normal [facility] eGFRon 12-04-2022 GFR/1.73 sq M.predicted among blacks MDRD (S/P/Bld) [Vol rate/Area] mL/min/{1.73_m2} Normal >=59 [facility] Comment on above: Order Comment: Order added by Discern Expert. Result Comment: eGFR is race adjusted. AA=. Performed By: #### 1 6315714, 5389053, 01934968, 92017136, 42754270, 4156517, 1647786, 1101385 ####[facility] [address] [place] [address] GFR/1.73 sq M.predicted among non-blacks MDRD (S/P/Bld) [Vol rate/Area] mL/min/{1.73_m2} Normal >=59 [facility] Comment on above: Order Comment: Order added by Discern Expert. Result Comment: Principal Java Developer asaf kidney disease could be indicated at eGFR's of less than 60 mL/min/1.73m2. Kidney failure is indicated at less than 15 mL/min/1.73m2. Performed By: #### 1 6183406, 6421429, 84090645, 80653066, 10231837, 8293314, 9253815, 0865292 ####[facility] [address] [place] [address] Physician Orderon 11-29-2022 Physician Order [id number]#1 .00CD:[address] [facility] PAP ACOG PANEL 2: 21 to 29on 10-31-2022 . . Normal [facility] Comment on above: Performed By: #### R PRQ #### [facility] [address] [address] [address] Jerrod Bettencourt Age Gdln ACOG Testing Normal [facility] Comment on above: Performed By: #### R PRQ #### [facility] [address] [place], [place] [address] Dr. Jerrod Bettencourt DIAGNOSIS: Comment Abnormal [facility] Comment on above: Result Comment: EPIT HELIAL CELL ABNORMALITY. LOW GRADE SQUAMOUS INTRAEPITHELIAL LESION (LSIL). Performed By: #### R PRQ #### [facility] [address] [address] [address] Jerrod Bettencourt Electronically signed by: Comment Normal [facility] Comment on above: Result Comment: Rachna Navarrete MD, Pathologist Performed By: #### R PRQ #### [facility] [address] [address] [address] Jerrod Bettencourt Methodology: Comment Normal [facility] Comment on above: Result Comment: This liquid based ThinPrep(R) pap test was screened with the use of an image guided system. Performed By: #### R PRQ #### [facility] [address] [address] [address] Jerrod Bettencourt Note: Comment Normal [facility] [...] . Performed By: #### R PRQ #### [facility] [address] [address] [address] Jerrod Bettencourt Pathologist Provided ICD10 Comment Normal [facility] Comment on above: Result Comment: [id number]. [id number] Performed By: #### R PRQ #### [facility] [address] [address] [address] Jerrod Bettencourt Performed by: Comment Normal [facility] Comment on above: Result Comment: Janet Abreu, Fisher [employer] (ASCP) Performed By: #### R PRQ #### [facility] [address] [address] [address] Jerrod Bettencourt Recommendation: Comment Abnormal [facility] Comment on above: Result Comment: Sugg est follow up as clinically appropriate. Performed By: #### R PRQ #### [facility] [address] [address] [address] Jerrod Bettencourt Reflex Criteria: Comment Normal [facility] Comment on above: Result Comment: The HPV DNA reflex criteria were not met with this specimen result therefore, no HPV testing was performed. . Performed By: #### R PRQ #### [facility] [address] [address] [address] Jerrod Bettencourt Specimen adequacy: Comment Normal [facility] Comment on above: Result Comment: Sati sfactory for evaluation. Endocervical and/or squamous metaplastic cells (endocervical component) are present. Performed By: #### R PRQ #### [facility] [address] [place] [address] Dr. Jerrod Bettencourt CBC AUTO DIFFon 06-04-2022 BASO # 0.1 103/ul Normal 0.0-0.1 [facility] Comment on above: Performed By: #### R PRQ #### [facility] [address] [place] [address] Dr. Jerrod Bettencourt Basophils/100 WBC (Bld) 0.3 % Normal 0.2-2.0 [facility] Comment on above: Performed By: #### R PRQ #### [facility] [address] [place] [address] Dr. Jerrod Bettencourt EO # 0.1 103/ul Normal 0.0-0.7 [facility] Comment on above: Performed By: #### R PRQ #### [facility] [address] [place] [address] Dr. Jerrod Bettencourt Eosinophils/100 WBC (Bld) 0.8 % Critically low 0.9-7.0 [facility] Comment on above: Performed By: #### R PRQ #### [facility] [address] [place] [address] Dr. Jerrod Bettencourt Erythrocyte distribution width (RBC) [Ratio] 13.2 % Normal 11.0-15.0 [facility] Comment on above: Performed By: #### R PRQ #### [facility] [address] [place] [address] Dr. Jerrod Bettencourt Hematocrit (Bld) [Volume fraction] 27.1 % Critically low 36.0-48.0 [facility] Comment on above: Performed By: #### R PRQ #### [facility] [address] [place] [address] Dr. Jerrod Bettencourt Hemoglobin (Bld) [Mass/Vol] 9.5 g/dL Critically low 12.0-16.0 [facility] Comment on above: Performed By: #### R PRQ #### [facility] [address] [address] [address] Jerrod Bettencourt IG # 0.08 10e3/ul Critically high 0.00-0.03 [facility] Comment on above: Performed By: #### R PRQ #### [facility] [address] [address] [address] Jerrod Bettencourt IG % 0.6 % Critically high 0.0-0.5 [facility] Comment on above: Performed By: #### R PRQ #### [facility] [address] [address] [address] Jerrod Bettencourt LYMPH # 2.0 103/ul Normal 1.2-3.8 [facility] Comment on above: Performed By: #### R PRQ #### [facility] [address] [place] [address] Dr. Jerrod Bettencourt Lymphocytes/100 WBC (Bld) 14.0 % Critically low 20.5-60.0 [facility] Comment on above: Performed By: #### R PRQ #### [facility] [address] [place] [address] Dr. Jerrod Bettencourt MANUAL DIFF REQ NO Normal [facility] Comment on above: Performed By: #### R PRQ #### [facility] [address] [place] [address] Dr. Jerrod Bettencourt MCH (RBC) [Entitic mass] 32.9 pg Normal 26.7-34.0 [facility] Comment on above: Performed By: #### R PRQ #### [facility] [address] [address] [address] Jerrod Bettencourt MCHC (RBC) [Mass/Vol] 35.1 g/dL Normal 29.9-35.2 [facility] Comment on above: Performed By: #### R PRQ #### [facility] [address] [place] [address] Dr. Jerrod Bettencourt MCV (RBC) [Entitic vol] 93.8 fL Normal 81.0-99.0 [facility] Comment on above: Performed By: #### R PRQ #### [facility] [address] [address] [address] Jerrod Bettencourt MONO # 1.1 103/ul Critically high 0.3-0.8 [facility] Comment on above: Performed By: #### R PRQ #### [facility] [address] [address] [address] Jerrod Bettencourt Monocytes/100 WBC (Bld) 7.9 % Normal 1.7-12.0 [facility] Comment on above: Performed By: #### R PRQ #### [facility] [address] [address] [address] Jerrod Bettencourt NEUT # 11.1 103/ul Critically high 1.4-6.5 [facility] Comment on above: Performed By: #### R PRQ #### [facility] [address] [place] [address] Dr. Jerrod Bettencourt Neutrophils/100 WBC (Bld) 76.4 % Critically high 43.0-75.0 [facility] Comment on above: Performed By: #### R PRQ #### [facility] [address] [place] [address] Dr. Jerrod Bettencourt Platelet mean volume (Bld) [Entitic vol] 10.6 fL Normal 9.5-13.5 [facility] Comment on above: Performed By: #### R PRQ #### [facility] [address] [place] [address] Dr. Jerrod Bettencourt PLT 147 103/ul Critically low 150-450 [facility] Comment on above: Performed By: #### R PRQ #### [facility] [address] [address] [address] Jerrod Bettencourt RBC 2.89 106/ul Critically low 4.20-5.40 [facility] Comment on above: Performed By: #### R PRQ #### [facility] [address] [address] [address] Jerrod Bettencourt WBC 14.5 103/ul Critically high 4.0-11.0 [facility] Comment on above: Performed By: #### R PRQ #### [facility] [address] [place], [place] [address] Dr. Jerrod Bettencourt CBC AUTO DIFFon 06-02-2022 BASO # 0.1 103/ul Normal 0.0-0.1 [facility] Comment on above: Performed By: #### C BC ####[facility] [address] Jerrod Bettencourt Basophils/100 WBC (Bld) 0.4 % Normal 0.2-2.0 [facility] Comment on above: Performed By: #### C BC ####[facility] [address]DrMoises Bettencourt EO # 0.4 103/ul Normal 0.0-0.7 [facility] Comment on above: Performed By: #### C BC ####[facility] [address] [address]Dr. Jerrod Bettencourt Eosinophils/100 WBC (Bld) 3.5 % Normal 0.9-7.0 [facility] Comment on above: Performed By: #### C BC ####[facility] [address] [address]Dr. Jerrod Bettencourt Erythrocyte distribution width (RBC) [Ratio] 12.9 % Normal 11.0-15.0 [facility] Comment on above: Performed By: #### C BC ####[facility] [address] [address]Dr. Jerrod Bettencourt Hematocrit (Bld) [Volume fraction] 37.0 % Normal 36.0-48.0 [facility] Comment on above: Performed By: #### C BC ####[facility] [address] [address]Dr. Jerrod Bettencourt Hemoglobin (Bld) [Mass/Vol] 13.3 g/dL Normal 12.0-16.0 [facility] Comment on above: Performed By: #### C BC ####[facility] [address] [place] [place] [address]DrMoises Bettencourt IG # 0.10 10e3/ul Critically high 0.00-0.03 [facility] Comment on above: Performed By: #### C BC ####[facility] [address]Dr. Tayloroseas Bettencourt IG % 0.8 % Critically high 0.0-0.5 [facility] Comment on above: Performed By: #### C BC ####[facility] [address] [address]Dr. Jerrod Sg LYMPH # 2.6 103/ul Normal 1.2-3.8 [facility] Comment on above: Performed By: #### C BC ####[facility] [address]Dr. Tayloroseas Bettencourt Lymphocytes/100 WBC (Bld) 21.6 % Normal 20.5-60.0 [facility] Comment on above: Performed By: #### C BC ####[facility] [address] [place] [address] [address]Dr. Jerrod Bettencourt MANUAL DIFF REQ NO Normal [facility] Comment on above: Performed By: #### C BC ####[facility] [address] [address]Dr. Jerrod Bettencourt MCH (RBC) [Entitic mass] 32.8 pg Normal 26.7-34.0 [facility] Comment on above: Performed By: #### C BC ####[facility] [address] [address]Dr. Jerrod Bettencourt MCHC (RBC) [Mass/Vol] 35.9 g/dL Critically high 29.9-35.2 [facility] Comment on above: Performed By: #### C BC ####[facility] [address] [address]Dr. Jerrod Bettencourt MCV (RBC) [Entitic vol] 91.1 fL Normal 81.0-99.0 [facility] Comment on above: Performed By: #### C BC ####[facility] [address] [place], [place] [address]Dr. Jerrod Bettencourt MONO # 1.0 103/ul Critically high 0.3-0.8 [facility] Comment on above: Performed By: #### C BC ####[facility] [address] [address]Dr. Jerrod Bettencourt Monocytes/100 WBC (Bld) 8.2 % Normal 1.7-12.0 [facility] Comment on above: Performed By: #### C BC ####[facility] [address] [address]Dr. Jerrod Bettencourt NEUT # 8.0 103/ul Critically high 1.4-6.5 [facility] Comment on above: Performed By: #### C BC ####[facility] [address] [place] [id number]. Jerrod Bettencourt Neutrophils/100 WBC (Bld) 65.5 % Normal 43.0-75.0 [facility] Comment on above: Performed By: #### C BC ####[facility] [address] [place] [address]Dr. Jerrod Bettencourt Platelet mean volume (Bld) [Entitic vol] 12.1 fL Normal 9.5-13.5 [facility] Comment on above: Performed By: #### C BC ####[facility] [address] [place] [id number]. Jerrod Bettencourt PLT 181 103/ul Normal 150-450 [facility] Comment on above: Performed By: #### C BC ####[facility] [address] [place] [id number]. Jerrod Bettencourt RBC 4.06 106/ul Critically low 4.20-5.40 [facility] Comment on above: Performed By: #### C BC ####[facility] [address] [place] [phone]. Jerrod Bettencourt WBC 12.2 103/ul Critically high 4.0-11.0 [facility] Comment on above: Performed By: #### C BC ####[facility] [address] [place] [phone]. Jerrod Bettencourt [facility]06 SARS-CoV-2 (COVID-19) RNA KATHY+probe Ql (Unsp spec) Not detected Normal NOT DETECTED [facility] Comment on above: Result Comment: When [...] for this test is supported by the [place] of Health and Human Service's declaration that [...] used). Performed By: #### C VDTBH #### [facility] [address] [address] [address] Jerrod Bettencourt DRUG SCREEN RAPID (URINE)on 06-02-2022 AMP Negative Normal NEGATIVE [facility] Comment on above: Performed By: #### D RUGRPD ####[facility] [address] [place] [address]Dr. Jerrod Bettencourt BAR Negative Normal NEGATIVE [facility] Comment on above: Performed By: #### D RUGRPD ####[facility] [address] [place] [address]Dr. Jerrod Bettencourt BUP Negative Normal NEGATIVE [facility] Comment on above: Performed By: #### D RUGRPD ####[facility] [address] [place] [address]Dr. Jerrod Bettencourt BZO Negative Normal NEGATIVE [facility] Comment on above: Performed By: #### D RUGRPD ####[facility] [address] [place] [address]Dr. Jerrod Bettencourt VERNA Negative Normal NEGATIVE [facility] Comment on above: Performed By: #### D RUGRPD ####[facility] [address] [place] [address]Dr. Jerrod Bettencourt CUT-OFFS SEE BELOW Normal [facility] Comment on above: Result Comment: AMP (Amphetamine): 500ng/mL, BAR (Barbituates): 200 ng/mL, BZO (Benzodiazepines): 150 ng/mL, BUP (Buprenorphine): 10 ng/mL, VERNA (Cocaine): 150 ng/mL, mAMP (Methamphetamine): 500 ng/mL, MTD (Methadone): 200 ng/mL, OPI (Opiates): 100 ng/mL, OXY (Oxycodone): 100 ng/mL, PCP (Phencyclidine): 25 ng/mL, PPX (Propoxyphene): 300 ng/mL, THC (Cannabinoids): 50 ng/mL, TCA (Trycyclic Antidepressants): 300 ng/mL Performed By: #### D RUGRPD ####[facility] [address] [place], [place] [address]Dr. Jerrod Bettencourt DRUG CUT HEADER DRUG CLASS TEST SYSTEM CUT-OFF CONCENTRATIONS ARE FOLLOWS: Normal [facility] Comment on above: Performed By: #### D RUGRPD ####[facility] [address] [place], [place] [address]Dr. Tayloroseas Bettencourt mAMP Negative Normal NEGATIVE [facility] Comment on above: Performed By: #### D RUGRPD ####[facility] [address] [place], [place] [address]Dr. Jerrod Bettencourt MTD Negative Normal NEGATIVE [facility] Comment on above: Performed By: #### D RUGRPD ####[facility] [address] [place] [address]Dr. Jerrod [facility] OPI Negative Normal NEGATIVE [facility] Comment on above: Performed By: #### D RUGRPD ####[facility] [address] [place] [address]Dr. Jerrod Bettencourt OXY Negative Normal NEGATIVE [facility] Comment on above: Performed By: #### D RUGRPD ####[facility] [address] [place] [address]Dr. Jerrod Bettencourt PCP Negative Normal NEGATIVE [facility] Comment on above: Performed By: #### D RUGRPD ####[facility] [address] [place], [place] [address]Bw. Jerrod Bettencourt PPX Negative Normal NEGATIVE [facility] Comment on above: Performed By: #### D RUGRPD ####[facility] [address] [place], [place] [address]Dy. Jerrod Bettencourt TCA Negative Normal NEGATIVE [facility] Comment on above: Performed By: #### D RUGRPD ####[facility] [address] [place], [place] [address]Hf. Jerrod Bettencourt THC Negative Normal NEGATIVE [facility] Comment on above: Performed By: #### D RUGRPD ####[facility] [address] [place], [place] [address]Iw. Jerrod Bettencourt TYPE AND SCREENon 06-02-2022 TYPE AND SCREEN Negative Normal [facility] Comment on above: Performed By: #### T NS #### [facility] [address], [place] [address] Dr. Jerrod Bettencourt US PREG BIOPHY W [...] MELITA MARTINEZ Date: 2022-06-01 16:30 Normal [facility] US PREG BIOPHY W NON STRESSo [...] MELITA MARTINEZ Date: 2022-05-24 17:37 Normal [facility] US PREG GROWTHon 05-24-2022 US PREG [...] MELITA MARTINEZ Date: 2022-05-24 17:19 Normal [facility] US PREG BIOPHY W NON STRESSo [...] by: ELIAS YOUNG Date: 2022-05-17 16:56 Normal [facility] GROUP B STREP CULTUREon 05-04 S. agalactiae Ag Ql (Unsp spec) Culture Observations: NEGATIVE FOR GROUP B STREPTOCOCCUS. Normal [facility] Comment on above: Performed By: #### G BSCX ####[facility] [address] [place], [place] [address]Ri. Jerrod Bettencourt US PREG BIOPHY W NON [...] by: MELITA MARTINEZ Date: 2022-05-11 16:48 Normal [facility] PREG GROWTHon 05-09-2022 US PREG GROWTH EXAMINATION: [...] by: ELIAS YOUNG Date: 2022-04-11 18:41 Normal [facility] GLUCOSE - 1HRon 03-21-2022 Glucose [Mass/Vol] 137 mg/dL Critically high 74-106 T [facility] Comment on above: Performed By: #### G LU1HR ####[facility] [address] [place], [place] [address]Dr. Jerrod Bettencourt HEMOGRAM AND PLATELon 2021 Hematocrit (Bld) [Volume fraction] 36.1 % Normal 36.0-48.0 [facility] Comment on above: Performed By: #### H H ####[facility] [address] [place] [address]Dr. Jerrod Bettencourt Hemoglobin (Bld) [Mass/Vol] 12.4 g/dL Normal 12.0-16.0 [facility] Comment on above: Performed By: #### H H ####[facility] [address] [place] [address]Dr. Jerrod Bettencourt MCH (RBC) [Entitic mass] 32.6 pg Normal 26.7-34.0 [facility] Comment on above: Performed By: #### H H ####[facility] [address] [place] [phone]. Jerrod Sg MCHC (RBC) [Mass/Vol] 34.3 g/dL Normal 29.9-35.2 [facility] Comment on above: Performed By: #### H H ####[facility] [address] [place] [phone]. Jerrod Sg MCV (RBC) [Entitic vol] 95.0 fL Normal 81.0-99.0 [facility] Comment on above: Performed By: #### H H ####[facility] [address] [place] [phone]. Jerrod Bettencourt PLT 203 103/ul Normal 150-450 [facility] Comment on above: Performed By: #### H H ####[facility] [address] [place] [phone]. Jerrod Bettencourt RBC 3.80 106/ul Critically low 4.20-5.40 [facility] Comment on above: Performed By: #### H H ####[facility] [address] [place] [phone]. Jerrod Bettencourt WBC 10.9 103/ul Normal 4.0-11.0 [facility] Comment on above: Performed By: #### H H ####[facility] [address] [place] [id number]. Jerrod Bettencourt TYPE AND SCREENon 03-21-2022 TYPE AND SCREEN Negative Normal [facility] Comment on above: Performed By: #### T NS ####[facility] [address] [place] [phone]. Jerrod Bettencourt CULTURE URINEon 02-20-2022 CULTURE URINE Culture Observations : LIGHT GROWTH OF MIXED GENITAL PALMER. NO POTENTIAL PATHOGENS SEEN. Normal [facility] Comment on above: Performed By: #### U RCX #### [facility] [address], [place] [address] Dr. Jerrod Bettencourt UA RANDOM W/MICROSCOPICon BACTERIA MODERATE Abnormal NONE SEEN [facility] Comment on above: Performed By: #### R PRQ #### [facility] [address] [address] [address] Jerrod Bettencourt Bilirubin Ql (U) Negative Normal NEGATIVE [facility] Comment on above: Performed By: #### R PRQ #### [facility] [address] [place] [address] Dr. Jerrod Bettencourt CAST SEEN Abnormal NONE SEEN [facility] Comment on above: Performed By: #### R PRQ #### [facility] [address] [place] [address] Dr. Jerrod Bettencourt Clarity (U) CLEAR Normal CLEAR [facility] Comment on above: Performed By: #### R PRQ #### [facility] [address] [place] [address] Dr. Jerrod Bettencourt Color (U) LT. YELLOW Normal YELLOW [facility] Comment on above: Performed By: #### R PRQ #### [facility] [address] [place] [address] Dr. Jerrod Bettencourt Crystals LM Nom (Urine sed) NONE SEEN Normal NONE SEEN [facility] Comment on above: Performed By: #### R PRQ #### [facility] [address] [place] [address] Dr. Jerrod Bettencourt Epithelial cells LM Ql (Urine sed) MANY Abnormal NONE SEEN /RARE [facility] Comment on above: Performed By: #### R PRQ #### [facility] [address] [place] [address] Dr. Jerrod Bettencourt Glucose Ql (U) Negative Normal NEGATIVE [facility] Comment on above: Performed By: #### R PRQ #### [facility] [address] [place] [address] Dr. Jerrod Bettencourt Hemoglobin Ql (U) Negative Normal NEGATIVE [facility] Comment on above: Performed By: #### R PRQ #### [facility] [address] [place] [address] Dr. Jerrod Bettencourt HYALINE CAST FEW Normal [facility] Comment on above: Performed By: #### R PRQ #### [facility] [address] [place] [address] Dr. Jerrod Bettencourt Ketones Ql (U) Negative Normal NEGATIVE [facility] Comment on above: Performed By: #### R PRQ #### [facility] [address] [place] [address] Dr. Jerrod Bettencourt LEUKOCYTES LARGE Abnormal NEGATIVE [facility] Comment on above: Performed By: #### R PRQ #### [facility] [address] [place] [address] Dr. Jerrod Bettencourt MUCOUS TRACE Abnormal NONE SEEN [facility] Comment on above: Performed By: #### R PRQ #### [facility] [address] [place] [address] Dr. Jerrod Bettencourt Nitrite Ql (U) Negative Normal NEGATIVE [facility] Comment on above: Performed By: #### R PRQ #### [facility] [address] [place] [address] Dr. Jerrod Bettencourt pH (U) 7.5 [pH] Normal 5-9 [facility] Comment on above: Performed By: #### R PRQ #### [facility] [address] [place] [address] Dr. Jerrod Bettencourt RBC 0-2 Normal 0-2 [facility] Comment on above: Performed By: #### R PRQ #### [facility] [address] [place] [address] Dr. Jerrod Bettencourt SPEC GRAVITY 1.020 Normal 1.005-<=1.02 5 [facility] Comment on above: Performed By: #### R PRQ #### [facility] [address] [place] [address] Dr. Jerrod Bettencourt UA PROTEIN Negative Normal NEGATIVE/ TRACE [facility] Comment on above: Performed By: #### R PRQ #### [facility] [address] [place] [address] Dr. Jerrod Bettencourt Urobilinogen Qn (U) 0.2 {Tuan'U}/dL Normal 0.2 - 1. 0 [facility] Comment on above: Performed By: #### R PRQ #### [facility] [address] [place] [address] Dr. Jerrod Bettencourt WBC 5-10 Abnormal NONE SEEN [facility] Comment on above: Performed By: #### R PRQ #### [facility] [address], [place] [address] Dr. Jerrod Bettencourt US PREG ANATOMY SINGLEon [...] MELITA MARTINEZ Date: 2022-01-23 09:58 Normal [facility] AFP MATERNAL FOR SPINA BIFID Aon 01-19-2022 AFP MoM 0.62 Normal [facility] Comment on above: Performed By: #### A FPMAT ####[facility] [address] [place] [address]Dr. Jerrod Bettencourt AFP Value 32.3 ng/mL Normal [facility] Comment on above: Performed By: #### A FPMAT ####[facility] [address] [place] [phone]. Jerrod Bettencourt AFP, Serum for Spina Bifida Report Normal [facility] Comment on above: Performed By: #### A FPMAT ####[facility] [address] [place] [phone]. Jerrod Bettencourt Comment Comment Normal [facility] Comment on above: Result Comment: Fernandez Silverio, Ph.D., [facility] Director . References: Available Upon Request. . Multiples Of Median Cutoffs For AFP Elevations Weeks 2.5 Black 2.8 IDD 2.0 Twins 4.5 Abbreviation Definitions IDD - Insulin Dep Diabetes OSBR - Open Spina Bifida Risk . For further inquiries contact [facility] at [phone]. Performed By: #### A FPMAT ####[facility] [address] [place] [phone]. Jerrod Bettencourt Gest Age Collection Date 19.4 weeks Normal [facility] Comment on above: Performed By: #### A FPMAT ####[facility] [address] [place] [address]Dr. Jerrod Bettencourt Gestat, Age Based on LMP Normal [facility] Comment on above: Result Comment: Reca lculations are not recommended when gestational dating by LMP and ultrasound are within 10 days. Performed By: #### A FPMAT ####[facility] [address] [place] [address]Dr. Jerrod [facility] Insulin Dep Diabetes No Normal [facility] Comment on above: Performed By: #### A FPMAT ####[facility] [address] [place] [address]Dr. Jerrod Bettencourt Interpretation Comment Normal [facility] Comment on above: Result Comment: Inte [...] Customer Services to discuss available options. The [place] [employer] recommends amniocentesis be offered to women age 35 and older. Performed By: #### A FPMAT ####[facility] [address] [place] [phone]. Jerrod Bettencourt [age] Normal [facility] Comment on above: Performed By: #### A FPMAT ####[facility] [address] [place] [address]Dr. Jerrod Bettencourt Multiple Gestation No Normal [facility] Comment on above: Performed By: #### A FPMAT ####[facility] [address] [place] [address]Dr. Jerrod Bettencourt [place] [address] Normal [facility] Comment on above: Performed By: #### A FPMAT ####[facility] [address] [place] [address]Dr. Jerrod Bettencourt PDF . Normal [facility] Comment on above: Performed By: #### A FPMAT ####[facility] [address] [place] [address]Dr. Jerrod Bettencourt Race Normal [facility] Comment on above: Performed By: #### A FPMAT ####[facility] [address] [place] [address]Dr. Jerrod Bettencourt Test Results: Negative Normal [facility] Comment on above: Performed By: #### A FPMAT ####[facility] [address] [place] [address]Dr. Jerrod Bettencourt CHLAMYDIA/GONOCOCCUS KATHY (SW AB/URINE/PAPon 12-26-2021 Chlamydia trachomatis, KATHY Negative Normal Negative [facility] Comment on above: Performed By: #### R PRQ #### [facility] [address] [address] [address] Jerrod Bettencourt Neisseria gonorrhoeae, KATHY Negative Normal Negative [facility] Comment on above: Performed By: #### R PRQ #### [facility] [address] [address] [address] Jerrod Bettencourt VAGINITIS/VAGINOSIS DNA PROB Salvador 12-25-2021 Rosalinda species Negative Normal Negative [facility] Comment on above: Performed By: #### V AGINT ####[facility] [address] [place] [address]Dr. Jerrod Bettencourt Gardnerella vaginalis Positive Abnormal Negative [facility] Comment on above: Performed By: #### V AGINT ####[facility] [address] [place] [id number] Bettencourt Trichomonas vaginalis Negative Normal Negative [facility] Comment on above: Performed By: #### V AGINT ####[facility] [address] [place] [phone] Bettencourt CULTURE URINEon 11-27-2021 CULTURE URINE Isolate [...] F Oxacillin <=0.25 S F Normal [facility] Comment on above: Performed By: #### U RCX #### [facility] [address] [place] [address] Dr. Jerrod Bettencourt HEP B SURFACE ANTIGEN SCREEN on 11-27-2021 HBsAg Screen Negative Normal Negative [facility] Comment on above: Performed By: #### R PRQ #### [facility] [address] [place] [address] Dr. Jerrod Bettencourt HEPATITIS C VIRUS AB W/ REFL EX QUANTon 11-27-2021 HCV AB <0.1 Normal 0.0-0.9 [facility] Comment on above: Performed By: #### R PRQ #### [facility] [address] [place] [address] Dr. Jerrod Bettencourt Interpretation: Comment Normal [facility] Comment on above: Result Comment: Nega tive Not infected with HCV, unless recent infection is suspected or other evidence exists to indicate HCV infection. Performed By: #### R PRQ #### [facility] [address] [place] [address] Dr. Jerrod Bettencourt HIV 1 AND 2 WITH REFLEXon HIV Screen 4th Generation wRfx Non-Reactive Normal Non Reactive [facility] Comment on above: Result Comment: HIV Negative HIV-1/HIV-2 antibodies and HIV-1 p24 antigen were NOT detected. There is no laboratory evidence of HIV infection. Performed By: #### R PRQ #### [facility] [address] [place] [address] Dr. Jerrod Bettencourt RPR QUANTon 11-27-2021 Rapid Plasma Reagin, Quant Non-Reactive Normal NonRea<1:1 [facility] Comment on above: Performed By: #### R PRQ #### [facility] [address] [place] [address] Dr. Jerrod Bettencourt RUBELLA AB IGGon 11-27-2021 Rubella Antibodies, IgG 1.52 index Normal Immune >0.99 [facility] Comment on above: Result Comment: Non- immune <0.90 Equivocal 0.90 - 0.99 Immune >0.99 Performed By: #### R PRQ #### [facility] [address] [place] [address] Dr. Jerrod Bettencourt CBC AUTO DIFFon 11-25-2021 BASO # 0.0 103/ul Normal 0.0-0.1 [facility] Comment on above: Performed By: #### R PRQ #### [facility] [address] [place] [address] Dr. Jerrod Bettencourt Basophils/100 WBC (Bld) 0.3 % Normal 0.2-2.0 [facility] Comment on above: Performed By: #### R PRQ #### [facility] [address] [place] [address] Dr. Jerrod Bettencourt EO # 0.3 103/ul Normal 0.0-0.7 [facility] Comment on above: Performed By: #### R PRQ #### [facility] [address] [place] [address] Dr. Jerrod Bettencourt Eosinophils/100 WBC (Bld) 2.2 % Normal 0.9-7.0 [facility] Comment on above: Performed By: #### R PRQ #### [facility] [address] [address] [address] Jerrod Bettencourt Erythrocyte distribution width (RBC) [Ratio] 13.4 % Normal 11.0-15.0 [facility] Comment on above: Performed By: #### R PRQ #### [facility] [address] [place] [address] Dr. Jerrod Bettencourt Hematocrit (Bld) [Volume fraction] 39.5 % Normal 36.0-48.0 [facility] Comment on above: Performed By: #### R PRQ #### [facility] [address] [place] [address] Dr. Jerrod Bettencourt Hemoglobin (Bld) [Mass/Vol] 14.2 g/dL Normal 12.0-16.0 [facility] Comment on above: Performed By: #### R PRQ #### [facility] [address] [place] [address] Dr. Jerrod Bettencourt IG # 0.05 10e3/ul Critically high 0.00-0.03 [facility] Comment on above: Performed By: #### R PRQ #### [facility] [address] [place] [address] Dr. Jerrod Bettencourt IG % 0.4 % Normal 0.0-0.5 [facility] Comment on above: Performed By: #### R PRQ #### [facility] [address] [place] [address] Dr. Jerrod Bettencourt LYMPH # 2.8 103/ul Normal 1.2-3.8 [facility] Comment on above: Performed By: #### R PRQ #### [facility] [address] [place] [address] Dr. Jerrod Bettencourt Lymphocytes/100 WBC (Bld) 22.8 % Normal 20.5-60.0 [facility] Comment on above: Performed By: #### R PRQ #### [facility] [address] [place] [address] Dr. Jerrod Bettencourt MANUAL DIFF REQ NO Normal [facility] Comment on above: Performed By: #### R PRQ #### [facility] [address] [address] [address] Jerrod Bettencourt MCH (RBC) [Entitic mass] 31.6 pg Normal 26.7-34.0 [facility] Comment on above: Performed By: #### R PRQ #### [facility] [address] [place] [address] Dr. Jerrod Bettencourt MCHC (RBC) [Mass/Vol] 35.9 g/dL Critically high 29.9-35.2 [facility] Comment on above: Performed By: #### R PRQ #### [facility] [address] [place] [address] Dr. Jerrod Bettencourt MCV (RBC) [Entitic vol] 87.8 fL Normal 81.0-99.0 [facility] Comment on above: Performed By: #### R PRQ #### [facility] [address] [place] [address] Dr. Jerrod Bettencourt MONO # 0.8 103/ul Normal 0.3-0.8 [facility] Comment on above: Performed By: #### R PRQ #### [facility] [address] [place] [address] Dr. Jerrod Bettencourt Monocytes/100 WBC (Bld) 6.8 % Normal 1.7-12.0 [facility] Comment on above: Performed By: #### R PRQ #### [facility] [address] [place] [address] Dr. Jerrod Bettencourt NEUT # 8.2 103/ul Critically high 1.4-6.5 [facility] Comment on above: Performed By: #### R PRQ #### [facility] [address] [place] [address] Dr. Jerrod Bettencourt Neutrophils/100 WBC (Bld) 67.5 % Normal 43.0-75.0 [facility] Comment on above: Performed By: #### R PRQ #### [facility] [address] [place] [address] Dr. Jerrod Bettencourt Platelet mean volume (Bld) [Entitic vol] 9.5 fL Normal 9.5-13.5 [facility] Comment on above: Performed By: #### R PRQ #### [facility] [address] [address] [address] Jerrod Bettencourt PLT 235 103/ul Normal 150-450 [facility] Comment on above: Performed By: #### R PRQ #### [facility] [address] [address] [address] Jerrod Bettencourt RBC 4.50 106/ul Normal 4.20-5.40 [facility] Comment on above: Performed By: #### R PRQ #### [facility] [address] [address] [address] Jerrod Bettencourt WBC 12.2 103/ul Critically high 4.0-11.0 [facility] Comment on above: Performed By: #### R PRQ #### [facility] [address] [address] [address] Jerrod Bettencourt GLYCOHEMOGLOBIN A1Con 2021 ADA RECOMMENDATION ADA THERAPEUTIC TARGET 6.0 - 7.0 ACTION SUGGESTED > 7.0 Normal [facility] Comment on above: Performed By: #### R PRQ #### [facility] [address] [address] [address] Jerrod Bettencourt Glucose [Mass/Vol] 94 mg/dL Normal [facility] Comment on above: Performed By: #### R PRQ #### [facility] [address] [address] [address] Jerrod Bettencourt HbA1c (Bld) [Mass fraction] 4.9 % Normal <=6.0 [facility] Comment on above: Performed By: #### R PRQ #### [facility] [address] [address] [address] Jerrod Bettencourt TYPE AND SCREENon 11-25-2021 TYPE AND SCREEN Negative Normal [facility] Comment on above: Performed By: #### T NS #### [facility] [address] [place] [address] Dr. Jerrod Bettencourt UA RANDOM W/MICROSCOPICon BACTERIA LARGE Abnormal NONE SEEN [facility] Comment on above: Performed By: #### U AMIC ####[facility] [address] [address]Dr. Jerrod Bettencourt Bilirubin Ql (U) Negative Normal NEGATIVE [facility] Comment on above: Performed By: #### U AMIC ####[facility] [address] [address]Dr. Jerrod Bettencourt CAST NONE SEEN Normal NONE SEEN [facility] Comment on above: Performed By: #### U AMIC ####[facility] [address] [place], [place] [address]Dr. Jerrod Bettencourt Clarity (U) SL CLOUDY Abnormal CLEAR [facility] Comment on above: Performed By: #### U AMIC ####[facility] [address] [address]Dr. Jerrod Bettencourt Color (U) LT. YELLOW Normal YELLOW [facility] Comment on above: Performed By: #### U AMIC ####[facility] [address] [place], [place] [address]Dr. Jerrod Bettencourt Crystals LM Nom (Urine sed) NONE SEEN Normal NONE SEEN [facility] Comment on above: Performed By: #### U AMIC ####[facility] [address] [place], [place] [address]Dr. Jerrod Bettencourt Epithelial cells LM Ql (Urine sed) MODERATE Abnormal NONE SEEN /RARE [facility] Comment on above: Performed By: #### U AMIC ####[facility] [address] [place], [place] [address]Dr. Jerrod Bettencourt Glucose Ql (U) Negative Normal NEGATIVE [facility] Comment on above: Performed By: #### U AMIC ####[facility] [address] [place], [place] [address]Dr. Jerrod Bettencourt Hemoglobin Ql (U) TRACE-INTACT Abnormal NEGATIVE [facility] Comment on above: Performed By: #### U AMIC ####[facility] [address] [address]Dr. Jerrod Bettencourt Ketones Ql (U) Negative Normal NEGATIVE [facility] Comment on above: Performed By: #### U AMIC ####[facility] [address] [address]Dr. Jerrod Bettencourt LEUKOCYTES LARGE Abnormal NEGATIVE [facility] Comment on above: Performed By: #### U AMIC ####[facility] [address] [address]Dr. Jerrod Bettencourt MUCOUS NONE SEEN Normal NONE SEEN [facility] Comment on above: Performed By: #### U AMIC ####[facility] [address] [address]Dr. Jerrod Bettencourt Nitrite Ql (U) Positive Abnormal NEGATIVE The [facility] Comment on above: Performed By: #### U AMIC ####[facility] [address] [place], [place] [address]Dr. Jerrod Bettencourt pH (U) 6.5 [pH] Normal 5-9 [facility] Comment on above: Performed By: #### U AMIC ####[facility] [address] [place], [place] [address]Dr. Jerrod Bettencourt RBC 2-5 Abnormal 0-2 [facility] Comment on above: Performed By: #### U AMIC ####[facility] [address] [place], [place] [address]Dr. Jerrod Bettencourt SPEC GRAVITY 1.020 Normal 1.005-<=1.02 5 [facility] Comment on above: Performed By: #### U AMIC ####[facility] [address] [place], [place] [address]Dr. Jerrod Bettencourt UA PROTEIN Negative Normal NEGATIVE/ TRACE [facility] Comment on above: Performed By: #### U AMIC ####[facility] [address] [place], [place] [address]Dr. Jerrod Bettencourt Urobilinogen Qn (U) 0.2 {Tuan'U}/dL Normal 0.2 - 1. 0 [facility] Comment on above: Performed By: #### U AMIC ####[facility] [address] [place], [place] [address]Dr. Jerrod Bettencourt WBC 75-100 Abnormal NONE SEEN [facility] Comment on above: Performed By: #### U [facility] ####[facility] [address] [place], [place] [address]PpMoises Bettencourt US PREG TVon 11-02-2021 US PREG [...] MELITA MARTINEZ Date: 2021-11-02 16:19 Normal [facility] Vital Signs Date Time Vital Sign Value Performing Clinician Facility 10-18-2023 10:29-0500 Body height 167.6 cm Verona Decker MD Work Phone: [facility] 10-18-2023 10:29-0500 Body mass index (BMI) [Ratio] 29.05 kg/m2 Verona Decker MD Work Phone: [facility] 10-18-2023 10:29-0500 Body weight 81.65 kg Verona Decker MD Work Phone: [facility] 10-18-2023 10:29-0500 Diastolic blood pressure 66 mm[Hg] Verona Decker MD Work Phone: [facility] 10-18-2023 10:29-0500 Heart rate 84 /min Verona Decker MD Work Phone: [facility] 10-18-2023 10:29-0500 Systolic blood pressure 113 mm[Hg] Verona Decker MD Work Phone: [facility] 01-11-2023 15:36-0400 Body temperature 97.88 [degF] Yash Medina [facility] 01-11-2023 15:36-0400 Diastolic blood pressure 81 mm[Hg] Yash Adam [facility] 01-11-2023 15:36-0400 Heart rate 79 /min Yash Adam [facility] 01-11-2023 15:36-0400 Respiratory rate 18 /min Yash Adam [facility] 01-11-2023 15:36-0400 SaO2% (BldA) [Mass fraction] 99 % Yash Adam [facility] 01-11-2023 15:36-0400 Systolic blood pressure 117 mm[Hg] Yash Adam [facility] 12-07-2022 23:00-0400 Diastolic blood pressure 75 mm[Hg] Yash Adam [facility] 12-07-2022 23:00-0400 Heart rate 74 /min Yash Adam [facility] 12-07-2022 23:00-0400 Mean blood pressure 90 mm[Hg] Yash Adam [facility] 12-07-2022 23:00-0400 Respiratory rate 16 /min Yash Adam [facility] 12-07-2022 23:00-0400 SaO2% (BldA) [Mass fraction] 98 % Yash Adam [facility] 12-07-2022 23:00-0400 Systolic blood pressure 120 mm[Hg] Yash Adam [facility] 12-07-2022 22:00-0400 Diastolic blood pressure 74 mm[Hg] Yash Adam [facility] 12-07-2022 22:00-0400 Heart rate 92 /min Yash Adam [facility] 12-07-2022 22:00-0400 Mean blood pressure 88 mm[Hg] Yash Medina [facility] 12-07-2022 22:00-0400 Systolic blood pressure 115 mm[Hg] Yash Medina [facility] 12-07-2022 21:30-0400 Body temperature 97.7 [degF] Yash Medina [facility] 12-07-2022 21:30-0400 Diastolic blood pressure 87 mm[Hg] Yash Medina [facility] 12-07-2022 21:30-0400 Heart rate 89 /min Yash Medina [facility] 12-07-2022 21:30-0400 Respiratory rate 20 /min Yash Medina [facility] 12-07-2022 21:30-0400 SaO2% (BldA) [Mass fraction] 97 % Yash Medina [facility] 12-07-2022 21:30-0400 Systolic blood pressure 139 mm[Hg] Yash Medina [facility] 01-19-2022 03:11-0400 Body weight 74.[address] WHITAKER LISTED REQUEST [facility] Comment on above: Performed By: #### AFPMAT ####[facility] [place] [facility] [address] [place], [place] [address]FwMoises Bettencourt Encounters Encounter Date Encounter Type Care Provider Facility Start: 04-14-2024 End: 04-14-2024 ambulatory JOHN KATIE Not Available Start: 03-11-2024 End: 03-11-2024 ambulatory MADHAVI BUSTAMANTE Not Available Start: 03-05-2024 End: 03-05-2024 ambulatory JOHN KATIE Not Available Start: 02-29-2024 End: 02-29-2024 ambulatory John Katie Facility:[facility] Start: 02-20-2024 End: 02-20-2024 ambulatory JOHN KATIE Not Available Start: 02-12-2024 End: 02-12-2024 ambulatory JOHN KATIE Not Available Start: 02-06-2024 End: 02-06-2024 ambulatory JOHN KATIE Not Available Start: 01-30-2024 End: 01-30-2024 ambulatory JOHN KATIE Not Available Start: 01-16-2024 End: 01-16-2024 ambulatory JOHN KATIE Not Available Start: 01-11-2024 End: 01-12-2024 ambulatory JOHN R KATIE [facility] Start: 01-03-2024 End: 01-03-2024 ambulatory JOHN KATIE Not Available Start: 12-20-2023 End: 12-20-2023 ambulatory JOHN KATIE Not Available Start: 11-22-2023 End: 11-22-2023 ambulatory SLOANE BRITT Not Available Start: 11-16-2023 End: [facility]: 10-25-2023 End: 10-25-2023 ambulatory JOHN KATIE Not Available Start: 10-19-2023 Orders Only Edward Og[facility] Comment on above: Abnormal thyroid fun ction test (Primary Dx); Pyelectasis of fetus on ultrasound Start: 10-18-2023 End: 10-19-2023 ambulatory VERONA DECKER [facility] Start: 10-18-2023 End: 10-18-2023 ambulatory JOHN R [facility] Start: 10-18-2023 End: 10-18-2023 Office consultation new/estab patient 60 min Verona Decker MD Work Phone: [facility] Comment on above: 20 weeks gestation o f (Primary Dx); Abnormal thyroid function test; Bipolar affective disorder, remission status unspecified ([facility]); Depression affecting ; Pyelectasis of fetus on ultrasound Start: 09-26-2023 End: 09-26-2023 ambulatory SLOANE BRITT Not Available Start: 09-24-2023 Chart abstracting Verona Decker MD Work Phone: [facility] Start: 08-28-2023 End: 08-28-2023 ambulatory JOHN KATIE Not Available Start: 08-09-2023 End: 08-09-2023 ambulatory JOHN KATIE Not Available Start: 08-03-2023 End: 08-03-2023 ambulatory JOHN KATIE Not Available Start: 03-19-2023 End: 03-19-2023 ambulatory Madhavi Bustamante Facility:[facility] Start: 03-05-2023 End: 03-05-2023 Patient encounter procedure MD Madhavi Bustamante [facility] Work Phone: Start: 03-05-2023 End: 03-05-2023 ambulatory MD Madhavi Bustamante [facility] Work Phone: Start: 01-11-2023 End: 01-11-2023 Emergency department patient visit Yash Medina Facility:[facility] Start: 01-11-2023 End: 01-11-2023 Emergency department patient visit Yash Medina [facility] Start: 12-07-2022 End: 12-08-2022 Emergency department patient visit Yash Medina Facility:[facility] Start: 12-07-2022 End: 12-07-2022 Emergency department patient visit Yash Medina [facility] Start: 12-04-2022 End: 12-05-2022 ambulatory Madhavi Bustamante Facility:[facility] Start: 12-04-2022 End: 12-04-2022 Patient encounter procedure Madhavi Bustamante [facility] Start: 10-24-2022 End: 10-24-[address] [...] End: 11-03-[address] JOHN WILSON . Facility:[facility]1 Procedures Date Procedure Procedure Detail Performing Clinician [...] on ultrasound Expected: 10/19/2024 (Approximate), Expires: 10/19/2024 [facility] Work Phone: Comment on above: Expected: 10/19/2024 (Approximate), Expires: 10/19/2024 Start: 10-18-2024 Adult BMI Screening Adult BMI Screen ing [facility] Start: 10-18-2024 Tobacco Screening Tobacco Screening [facility] Start: 11-16-2023 End: 11-16-2023 Patient encounter procedure 11/16/2023 11:[address] [facility] [address] [facility] [place] [address] [facility] Start: 10-18-2023 End: 10-18-2023 Patient encounter procedure 10/18/2023 10:30 AM EST Office Visit [facility] [address] [place] [id number] Verona Decker MD [address] [place] [address] [facility] Start: 10-18-2023 End: 10-18-2023 Patient encounter procedure 10/18/2023 9:15 AM EST Appointment [facility] [address] [place] [id number] [facility] Start: 05-04-2023 Influenza vaccination Influenza Vacc ine [facility] Start: 2021 Screening for malign ant neoplasm of cervix Pap Smear [facility] Start: 2018 Adult BMI Follow Up Plan Adult BMI Follow Up Plan [facility] Start: 2018 Adult BMI Screening Adult BMI Screen ing [facility] Start: 2012 Depression Screening Depression Scre ening [facility] Start: 2012 Tobacco Screening Tobacco Screening [facility] Start: 2011 DTaP,Tdap and Td Vaccines (6 - Tdap) DTaP,Tdap and Td Vaccines (6 - Tdap) [facility] Start: 2000 Screening for Chlamy shreyas trachomatis Chlamydia Screening [facility] Payers Date Payer Category Payer Self-pay 2022 Unknown [id number] 2019 Private Health Insurance 2000 Unknown [id number] 2.16.84 0.1.689269.3.579.2.593 2000 Unknown [id number] 2.16.84 0.1.777909.3.579.2.593 2000 Unknown [id number] 2.16.84 0.1.066212.3.579.2.593 2000 Unknown [id number] 2.16.84 0.1.550509.3.579.2.593 2000 Unknown [id number] 2.16.84 0.1.662493.3.579.2.593 2000 Unknown [id number] 2.16.84 0.1.941785.3.579.2.593 2000 Unknown [id number] 2.16.84 0.1.724143.3.579.2.593 2000 Unknown [id number] 2.16.84 0.1.969572.3.579.2.593 2000 Unknown [id number] 2.16.84 0.1.413245.3.579.2.593 2000 Unknown [id number] 2.16.84 0.1.782718.3.579.2.593 2000 Unknown [id number] 2.16.84 0.1.176811.3.579.2.593 2000 Unknown [id number] 2.16.84 0.1.799444.3.579.2.593 2000 Unknown [id number] 2.16.84 0.1.730772.3.579.2.593 2000 Unknown [id number] 2.16.84 0.1.888513.3.579.2.593 2000 Unknown [id number] 2.16.84 0.1.885564.3.579.2.593 2000 Unknown [id number] 2.16.84 0.1.910603.3.579.2.593 2000 Unknown [id number] 2.16.84 0.1.668146.3.579.2.593 2000 Unknown [id number] 2.16.84 0.1.214989.3.579.2.593 2000 Unknown [id number] 2.16.84 0.1.206187.3.579.2.593 2000 Unknown [id number] 2.16.84 0.1.013542.3.579.2.593 2000 Unknown [id number] 2.16.84 0.1.278748.3.579.2.593 2000 Unknown [id number] 2.16.84 0.1.637922.3.579.2.593 2000 Unknown [id number] 2.16.84 0.1.822398.3.579.2.593 2000 Unknown [id number] 2.16.84 0.1.273558.3.579.2.593 2000 Unknown [id number] 2.16.84 0.1.874376.3.579.2.593 2000 Unknown [id number] 2.16.84 0.1.298080.3.579.2.593 2000 Unknown [id number] 2.16.8 40.1.550888.3.579.2.727 2000 Unknown [id number] 2.16.8 40.1.483547.3.579.2.727 2000 Unknown [id number] 2.16.8 40.1.592385.3.579.2.727 2000 Unknown [id number] 2.16.8 40.1.412243.3.579.2.1286 2000 Unknown [id number] 2.16.8 40.1.671133.3.579.2.1286 2000 Unknown [id number] 2.16.8 40.1.439173.3.579.2.128 2000 Unknown [id number] 2.16.8 40.1.770620.3.579.2.1286 2000 Unknown [id number] 2.16.8 40.1.127524.3.579.2.1286 2000 Unknown [id number] 2.16.84 0.1.176590.3.579.2.9 2000 Unknown [id number] 2.16.84 0.1.950355.3.579.2.1258 2000 Unknown [id number] 2.16.84 0.1.646870.3.579.2.1258 2000 Unknown [id number] 2.16.84 0.1.811246.3.579.2.1258 2000 Unknown [id number] 2.16.84 0.1.471090.3.579.2.1258 2000 Unknown [id number] 2.16.84 0.1.177231.3.579.2.1258 2000 Unknown [id number] 2.16.84 0.1.692214.3.579.2.1258 2000 Unknown [id number] 2.16.84 0.1.396565.3.579.2.1258 2000 Unknown [id number] 2.16.84 0.1.223591.3.579.2.1258 2000 Unknown [id number] 2.16.84 0.1.772570.3.579.2.1258 2000 Unknown [id number] 2.16.84 0.1.262665.3.579.2.1258 2000 Unknown [id number] 2.16.84 0.1.320063.3.579.2.1258 2000 Unknown [id number] 2.16.84 0.1.901381.3.579.2.1258 2000 Unknown [id number] 2.16.840 .1.894576.3.579.2.1258 2000 Unknown [id number] 2.16.840 .1.165280.3.579.2.1258 2000 Unknown [id number] 2.16.840 .1.743004.3.579.2.9 1959 Medicaid [id number] 1959 Private Health Insurance [id number] Self-pay [id number] Unknown [id number] 2.16.8 40.1.673951.3.579.2.531 Unknown [id number] 2.16.8 40.1.688633.3.579.2.531 Unknown [id number] 2.16.8 40.1.127024.3.579.2.531 Social History Date Type Detail Facility Tobacco [facility] Comment on above: denies Tobacco smoking status No Smokin g Status Entered [facility] Start: 09-24-2023 End: 10-18-2023 Sex Assigned At Female [facility] Start: 03-05-2023 End: 09-24-2023 Tobacco smoking status NHIS Never smoked tobacco (finding) [facility] Start: 2000 Sex Assigned At Female F [facility] Start: 09-24-2023 Tobacco use and exposure Smokeless tobacco non-user [facility] Start: 09-26-2023 End: 10-18-2023 Alcohol intake Ex-drinker (finding) [facility] Start: 09-24-2023 End: 10-18-2023 History of Social function [facility] Start: 06-14-2023 [facility] Start: 2000 Sex Assigned At Not on file [facility] Within the past 12 months we worried whether our food would run out before we got money to buy more. Never True [facility] Functional Status Date Assessment Result [...] Medical History: Diagnosis Date Anxiety Bipolar disorder ([facility]) Chronic cholecystitis Depression SURGICAL HISTORY: Past Surgical [...] of level 2 anatomy ultrasound, scheduled through [facility] Patient to return in 12 weeks at 32 weeks' gestation for re-evaluation of bilateral urinary tract dilation, scheduled through [facility] DISPOSITION: At this point the patient is in complete care of her karate black belt. Patient does have ultrasound scheduled with us. [...] procedures Referring and communicating with other health director of medicare (not separately reported) Documenting clinical information in the electronic or other health record Verona Decker MD Maternal- Medicine [facility] [address] [place] [address] [facility], the CDC, and other organizations representing maternal and public health professionals recommend that , , and lactating people and those considering receive the COVID-19 vaccination. Vaccination is the best method to reduce maternal and complications of SARS-CoV-2 infection. This document was created with [employer] technology. Though I make every effort to review the dictation as it is transcribed, on occasion the spoken word can be misinterpreted by the technology leading to inappropriate words, phrases, or sentences. This note is addressed to the requesting provider as a consultation for clinical guidance. Specific medical abbreviations are occasionally used and those are generally approved by the [place]?Board of?Obstetrics and?Gynecology?as well as?Gayle turner abbreviations. The above plan of care was based solely on the diagnoses for which a consultation was requested. ?More frequent testing may be indicated based on her other medical/obstetrical conditions. The management of other or medical conditions is beyond the scope of requested consultation and will continue to be followed by the primary karate black belt or primary care provider. Note to patient: [...] male Have you been seen here at [facility] in a previous ? No Recent ER visits or hospitalizations? No Bring blood sugar log or meter with you today? (Please bring them with you for every visit at [facility]) n/a Traveled outside the country in the past 6 month no Any concerns that you would like me to mention to the provider today? No documented in this encounter [facility] 01-11-2023 Hospital Discharg e instructions Patient [...] are sitting or lying down. Medicines Take zppd-ljf-wyewjjo and prescription medicines only as told by [...] provider. Document Revised: 07/13/2021 Document Reviewed: 07/13/2021 [employer] Patient Education 2022 [employer] 01/11/2023 17:05:20 Contusion Contusion A contusion [...] sitting or lying down. General instructions Take pqvq-hpb-utgyxwv and prescription medicines only as told by [...] compression, and elevation. You may be given akmp-emq-ioonntp medicines for pain. Contact a health care [...] provider. Document Revised: 07/04/2022 Document Reviewed: 06/15/2022 [employer] Patient Education 2022 [employer] Follow Up Care 01/11/2023 15:31:57 With:Madhavi Bustamante Address: [address] [place] [address]- Business (1) When:01/14/2023 16:47:05 [facility] 01-11-2023 Evaluation + Plan note Extrac yolanda from: Title:ED Note Author:Derek Salcido PA-C te:01/11/23 Finger sprain (S63.619A: Uns pecified sprain of unspecified finger, initial encounter) Hand contusion (S60.229A: Contusion of unspecified hand, initial encounter) Orders: Finger Splint Application XR Hand 3+ Views Left [facility]04-07-2023 Hospital Discharge instructions Patient Education 12/07/2022 [...] water added (diluted fruit juice). Eat bland, zubq-fa-cwfqch foods in small amounts as you are able. These foods include bananas, applesauce, rice, lean meats, toast, and crackers. Avoid fluids that contain a lot of sugar or caffeine, such as energy drinks, sports drinks, and soda. Avoid alcohol. Avoid spicy or fatty foods. General instructions Take efbn-vzw-vtjqyis and prescription medicines only as told by your health care provider. Drink enough fluid to keep your urine pale yellow. Wash your hands often using soap and water. If soap and water are not available, use hand hopper operator. Make sure that all people in your [...] eating and drinking to prevent dehydration. Take epbs-mii-ezevuba and prescription medicines only as told by [...] 08/20/2006 Document Revised: 12/12/2019 Document Reviewed: 01/28/2019 [employer] Patient Education 2019 [employer]. 12/07/2022 23:48:57 Cholelithiasis Cholelithiasis Cholelithiasis is a [...] gallstones. Follow these instructions at home: Take aple-dtc-kxefnrm and prescription medicines only as told by [...] 08/16/2006 Document Revised: 08/02/2018 Document Reviewed: 05/06/2017 [employer] Patient Education 2020 [employer]. Follow Up Care 12/07/2022 21:26:38 With:Fernando Clark Address: [address] [place] [address], [address] [place] [address] [phone] Business (1) When:12/10/2022 Comments:General surgeon in [place] With:Willie LOZADA Address: [address], [address] [facility] [address] [phone] Business (1) When:12/10/2022 Comments:General surgeon at [place] With:Please return to the ED with any new or worsening symptoms including worsening pain, fevers and chills, worsening nausea and inability to tolerate a liquid diet. Address:Unknown When: Unknown With:You may follow with the general surgeon recommended to by your primary care provider. You have alsobeen provided with the information for the local [facility] general surgeons. Address:Unknown When: Unknown [facility]04-06-2023 Evaluation + Plan noteExtracted from: Title:ED Note Author:Lupis Miller PA-C e:12/07/22 Cholelithiases (K80.20: Calc ulus of gallbladder without cholecystitis without obstruction) Nausea (R11.0: Nausea) Orders: dicyclomine, 10 mg = 1 cap(s), Oral, QID, PRN Pain, X 7 day(s), # 28 cap(s), Refills(s) 0, Pharmacy: [id number], 167.6, cm, 12/07/22 21:32:00 EDT, Height/Length [...] day(s), # 12 tab(s), Refills(s) 0, Pharmacy: [id number], 167.6, cm, 12/07/22 21:32:00 EDT, Height/Length [...] Diagnostic Tests Pending * Urine Culture 12/07/22 [facility]04-03-2023 Evaluation + Plan note Diagnostic Tests Pending * ANGEL w/Reflex if POS 12/04/22 [facility]09-30-2022 NoteOP Note OPERATION DATE: 06/03/2022 PROCEDURE: Primary low transverse section. PREOPERATIVE DIAGNOSIS: 1. Intrauterine 39 weeks. 2. Failure to induce. 3. Maternal discomfort. 4. Maternal intolerance to labor, requesting . POSTOPERATIVE DIAGNOSIS: 1. Intrauterine 39 weeks. 2. Failure to induce. 3. Maternal discomfort. 4. Maternal intolerance to labor, requesting . ANESTHESIA: Spinal with Duramorph. SURGEON: John Wilson D.O. BRICK YARD HAND: JOSÉ Burnham URINE OUTPUT: Yellow and clear. [...] to the Recovery Room in stable condition.[facility] [id number] Note DISCHARGE SUMMARY DISCHARGE DATE: 06/17/2022 PRIMARY [...] when pain free and no longer on narcotics.[facility]09-30-2022 NoteOPERATIVE NOTE OPERATION DATE: 06/04/2022 PROCEDURE: Primary low transverse section. PREOPERATIVE DIAGNOSIS: 1. Intrauterine 39 weeks. 2. Failure to induce. 3. Maternal discomfort. 4. Maternal intolerance to labor, requesting . POSTOPERATIVE DIAGNOSIS: 1. Intrauterine 39 weeks. 2. Failure to induce. 3. Maternal discomfort. 4. Maternal intolerance to labor, requesting . ANESTHESIA: Spinal with Duramorph. SURGEON: John Wilson D.O. BRICK YARD HAND: JOSÉ Burnham URINE OUTPUT: Yellow and clear. [...] to the Recovery Room in stable condition.[facility] HospitalEvaluation noteNo assessment information availableChillicothe [facility]tr Work Phone: Evaluation note* Diagnosis 20 weeks gestation of - Primary Abnormal thyroid function test Nonspecific abnormal results of thyroid function study Bipolar affective disorder, remission status unspecified ([facility]) Depression affecting Pyelectasis of fetus on ultrasound [facility] Diagnosis Abnormal thyroid function test- Primary Nonspecific abnormal results of thyroid function study Pyelectasis of fetus on ultrasound [facility] Narrative No data available for this section [facility] No data available for this section [facility]InstructionsNot on filedocumented in this encounter [facility] SystemInstructionsNot on filedocumented in this encounter [facility] HospitalInstructionsNot on filedocumented in this encounter [facility] No data available for this section [facility] Summary Purpose Family History No Family [...] without consult Verona Decker MD [address] [place] [address] [facility] [address] [place] [address] Referral ID Status Reason Start Date Expiration Date V isits Requested Visits Authorized [id number] Pending Review 10/19/2023 10/18/2024 1 1 Additional Source Comments INFORMATION SOURCE (unrecogn ized section and content) DATE CREATED AUTHOR 11/01/2022 [facility] DATE CREATED AUTHOR AUTHOR'S ORGANIZ ATION 01/12/2023 [facility] DATE CREATED AUTHOR AUTHOR'S ORGANIZ ATION 01/13/2024 [facility] DATE CREATED AUTHOR AUTHOR'S ORGANIZ ATION 03/04/2024 [facility] DATE CREATED AUTHOR AUTHOR'S ORGANIZ ATION 04/15/2024 [facility] EPIC Patient Care team informatio [...] BE BASED ON THE PRIMARY CLINICAL RECORDS. [facility] [employer] [facility]. provides no warranty or guarantee of the accuracy or completeness of information in this document.
[2024-05-23 18:08] LABS: HPV Aptima Negative (Negative); Pap IG (Image Guided) Note (.)
== END 2024-05-19 20:58 | disposition home or self-care (01) ==
LOC: LAB 20:57
PROVIDERS: PCP Student in an Organized Health Care Education/Training Program; Visit Provider Obstetrics & Gynecology
DX: R87.610 Atypical squamous cells of undetermined significance on cytologic smear of cervix (ASC-US) (principal); R87.810 Cervical high risk human papillomavirus (HPV) DNA test positive
CPT/HCPCS: 88175